=== PATIENT | female | born 1940 | race Caucasian/White ===

== ENCOUNTER → 2018-04-03 09:49 | Outpatient (CLI) | payer MEDICARE, SELFPAY | PROVIDERS: Visit Provider Internal Medicine Gastroenterology | DX: R11.2 Nausea with vomiting, unspecified (principal) | CPT/HCPCS: 78264; A9541 ==

== ENCOUNTER 2020-03-02 17:00 | Inpatient (IN) | payer MEDICARE, SELFPAY ==
[2019-05-22 15:32] VITALS: BMI 34.4
[2020-03-02] VITALS (17 sets, daily range): BP systolic 96–131; BP diastolic 44–73; PULSE 60–87; RESP 13–19; TEMP 36.4–36.8; O2SAT 95–99; BMI 33.7; BMI 35.4
--- NOTE | 2020-03-02 17:03 | EKG12_ITS ---
Test Reason : STROKE Blood Pressure : / mmHG Vent. Rate : 060 BPM Atrial Rate : 070 BPM P-R Int : 000 ms QRS Dur : 138 ms QT Int : 468 ms P-R-T Axes : 000 -78 125 degrees QTc Int : 468 ms Ventricular-paced rhythm Abnormal ECG Confirmed by ROCAEL HERNANDEZ, TEJA ([id number]), clinical editor VANI PATEL ([id number]) on 03/04/2020 1:16:10 PM Referred By: JAVID Confirmed By:TEJA COTE MD
--- NOTE | 2020-03-02 17:03 | CT_ITS ---
We are attempting to reach an attending provider to discuss findings. An addendum with communication details will be sent when the communication is complete. STUDY: CT BRAIN WITHOUT CONTRAST REASON FOR EXAM: Female, 80 years old. FACIAL DROOP, SLURRED SPEECH, CVA RADIATION DOSAGE (If Supplied By Facility): CTDIvol = ( 44.99 ) mGy, DLP = ( 829.85 ) mGycm TECHNIQUE: Transaxial CT imaging of the brain was performed without administration of intravenous contrast material. Individualized dose optimization techniques were used for this CT. COMPARISON: No relevant priors. FINDINGS: Normal soft tissue structures. Normal calvarium. There is mild cerebral atrophy with widening of the extra-axial spaces and ventricular dilatation. There are areas of decreased attenuation within the white matter tracts of the supratentorial brain, consistent with microvascular disease changes. Normal basal ganglia and thalami. Normal brainstem. Normal cerebellum. There is no intracranial hemorrhage. There are no findings of an acute ischemic infarction. Normal visualized paranasal sinuses. CT/Brain/Head without Contrast IMPRESSION: Chronic involutional changes of the brain. There is no intracranial hemorrhage or evidence of acute infarct. Electronically Signed: Romain Heredia MD at 17:21 EDT , Service support ,
--- NOTE | 2020-03-02 17:03 | ED.DCSUM_ITS ---
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 Per EMS she was very confused. Her facial droop has improved since she had the onset of symptoms. No history of falls were noted. Past Medical History - Allergies and Home Meds Allergies/Adverse Reactions: Allergies Iodinated Contrast Media [DYEE] Allergy (Verified 05/22/19 15:32) Anaphylaxis hydrocodone bitartrate [From Vicodin] Adverse Reaction (Verified 05/22/19 15:32) Nausea/Vom/Diarrhea Past Medical History: - - CAD, pacemaker, stroke diabetes Lives: Skilled Nursing Smoking Status: Never smoker Alcohol: None Drugs: None - Family History Maternal Family History: Family History (Last Reviewed 05/22/19 @ 15:31 by Tessy Osorio) Mother Arthritis Family History: Reports: No pertinent history Review of Systems ROS: Unable to Obtain Physical Exam Inital Vital Signs reviewed: Yes General: Obese, Acute Distress Head: Normocephalic, Atraumatic Eyes: Perrl, EOMI, Pale conjunctiva. Negative for: Scleral icterus ENT: Dry mucous membranes Cardiovascular: Regular rate, Regular rhythm Respiratory: No distress, CTA bilaterally, Chest tenderness - Bruising over the lateral chest wall on the left and the right. Equal symmetric breath sounds and chest wall rise Abdomen: Soft, Nontender Rectal: Guaiac positive Extremities: No edema, - - Bruising noted over the bilateral lower extremities. Skin: - - Bruising as described above Neurological: Alert, Disoriented, Left side facial droop. Negative for: Normal Strength Diagnostic/Tx/Re-eval Clinical Impression(s) from Imaging Studies Brain CT 03/02/20 17:03 IMPRESSION: Chronic involutional changes of the brain. There is no intracranial hemorrhage or evidence of acute infarct. Electronically Signed: Romain Heredia MD at 17:21 EDT , Service support , ADDENDUM: 03/02/20 0720 IMPRESSION: Chronic involutional changes of the brain. There is no intracranial hemorrhage or evidence of acute infarct. N.B. : The above information has been verbally conveyed by Edward Walkowski, MD to MATEO HUA DO, on 03/02/2020 17:23:37 (ET). Electronically Signed: Romain Heredia MD at 17:21 EDT , Service support , Chest X-Ray 03/02/20 18:17 IMPRESSION: Degenerative changes, as described above. No demonstrated acute cardiopulmonary process. Electronically Signed: Randy Rosa MD at 18:51 EDT , Service support , Humerus X-Ray 03/02/20 18:48 IMPRESSION: Degenerative changes of the left glenohumeral and acromioclavicular articulations. There is no evidence of left humeral fracture or dislocation. Electronically Signed: Romain Heredia MD at 20:27 EDT , Service support , Elbow X-Ray 03/02/20 19:35 IMPRESSION: No evidence of fracture or dislocation. Electronically Signed: Romain Heredia MD at 20:28 EDT , Service support , Laboratory Data 03/02/20 03/02/20 03/02/20 18:10 20:20 20:20 WBC 11.3 H RBC 2.75 L Hgb 8.4 L Hct 26.5 L MCV 96.4 MCH 30.5 MCHC 31.7 L RDW Std Deviation 56.7 H RDW Coeff of Gunnar 16.6 H Plt Count 289 MPV 10.0 Immature Gran % (Auto) 0.400 Neut % (Auto) 92.6 H Lymph % (Auto) 4.2 L [place] % (Auto) 2.7 Eos % (Auto) 0.0 Baso % (Auto) 0.1 Absolute Neuts (auto) 10.5 H Absolute Lymphs (auto) 0.47 L Nucleated RBC % 0 Differential Comment SEE COMMENT Platelet Estimate ADEQUATE RBC Morphology N CHROM Anisocytosis RARE Macrocytosis RARE PT 18.5 H INR 1.6 APTT 23.9 L Sodium Potassium Chloride Carbon Dioxide Anion Gap BUN Creatinine Estim Creat Clear Calc Est GFR (MDRD) Af Amer Est GFR (MDRD) Non-Af BUN/Creatinine Ratio Glucose Calcium Troponin I Urine Color Yellow Urine Clarity Clear Urine pH 6.0 Ur Specific [place] 1.010 Urine Protein 30 H Urine Glucose (UA) Normal Urine Ketones Negative Urine Occult Blood 50 H Urine Nitrite Negative Urine Bilirubin Negative Urine Urobilinogen Normal Ur Leukocyte Esterase Negative Urine RBC 5-10 SEEN Urine WBC 5-10 SEEN Ur Squamous Epith Cells 0 SEEN Urine Bacteria 2+ Urine Mucus 0 SEEN 03/02/20 03/02/20 20:20 21:45 WBC RBC Hgb Hct MCV MCH MCHC RDW Std Deviation RDW Coeff of Gunnar Plt Count MPV Immature Gran % (Auto) Neut % (Auto) Lymph % (Auto) [place] % (Auto) Eos % (Auto) Baso % (Auto) Absolute Neuts (auto) Absolute Lymphs (auto) Nucleated RBC % Differential Comment Platelet Estimate RBC Morphology Anisocytosis Macrocytosis PT INR APTT Sodium 139 Potassium 4.7 Chloride 95 L Carbon Dioxide 39.0 H Anion Gap 5 BUN 67 H Creatinine 2.47 H Estim Creat Clear Calc 17.57 Est GFR (MDRD) Af Amer 24 L Est GFR (MDRD) Non-Af 20 L BUN/Creatinine Ratio 27.1 H Glucose 133 H Calcium 8.6 Troponin I 0.053 H Urine Color Yellow Urine Clarity Cloudy Urine pH 7.0 Ur Specific [place] 1.010 Urine Protein 30 H Urine Glucose (UA) Normal Urine Ketones Negative Urine Occult Blood 150 H Urine Nitrite Negative Urine Bilirubin Negative Urine Urobilinogen 4 H Ur Leukocyte Esterase 500 H Urine RBC 25-50 SEEN Urine WBC >100 SEEN Ur Squamous Epith Cells 0 SEEN Urine Bacteria 0 SEEN Urine Mucus 0 SEEN - Rhythm Strip Rhythm Strip: - Paced rhythm 58 bpm. - Medical Decision Making Patient presents with concern stroke because she was reportedly having a facial droop which started at 1500 today. On arrival there is a slight left-sided f acial droop. Her symptoms appear to be bilateral. She has bilateral leg weakness and bilateral arm weakness. She is slow to respond. She did have an immediate CT brain which was negative. She was unable to get a CTA because he has a contrast allergy. Neurology felt there might be a slight deficit and recommended admission for MRI/MRA. Patient's blood work shows that she is anemic and she is on Xarelto. She was typed and screened but does not currently need blood transfusion. Hemoccult positive. Patient also has acute kidney injury she was given IV fluids. Her urinalysis was initially negative however after the Hernandez i the urine looked a little more purulent as it started to drain. She was retested and consistent with UTI. She was given Rocephin and a urine culture was sent. Her troponin is slightly elevated however she has no EKG changes and she has acute kidney injury and this is the likely cause. Patient's family member has concerned that she has not been taking care of well as she has bruising all over her extremities and on her abdomen. He does not wish to go back to the longterm. Patient will be admitted to medicine for treatment and she will ultimately be placed somewhere else. ED Disposition - Plan for ED Patient: Disposition: Acute Care Hospital [facility] Diagnosis: Generalized weakness, Facial droop, Anemia, GI bleed, Acute kidney failure, Troponin I above reference range
--- NOTE | 2020-03-02 17:09 | CM.ED ---
Social Work Responding to Stroke Alert. No Family present. [facility] primary contact is patient spouse, Moises. Second contact is patient son, Josh. Estefani states to have attempted to notify patient spouse but no answer and is getting ready to call patient son. Estefani to call Josh to provide updated. This social director inquiring about patient code statues. Patient is a full code. Updated Dr. Welsh and nursing staff on patient code status. Grayson Breen MSW, RUSSELL
--- NOTE | 2020-03-02 17:19 | NURSING ---
1653 CALLED STROKE ALERT
--- NOTE | 2020-03-02 17:35 | CM.ED ---
Social Work Per ED Dowell, Justina. Patient son called in and is getting off work and coming to the hospital. Grayson Breen HIGH SCHOOL MUSIC INSTRUCTOR, RUSSELL
--- NOTE | 2020-03-02 18:17 | RAD_ITS ---
STUDY: X-RAY CHEST REASON FOR EXAM: Female, 80 years old. Chest pain/pressure, mental status change, facial droop TECHNIQUE: Single AP portable view of the chest. COMPARISON: None. FINDINGS: EKG leads overlie the chest. Satisfactory appearance of a left subclavian pacemaker There are interstitial fibrotic changes of the lungs. There is no demonstrated pleural abnormality. Sternal cerclage wires and vascular clips are present from a prior sternotomy and coronary artery bypass graft procedure (CABG). Normal mediastinum and renay. Normal visualized pulmonary arteries. There is atherosclerotic calcification of the aortic arch with tortuosity. There are diffuse degenerative changes of the visualized thoracic spine. There is degenerative osteoarthritis of the bilateral shoulders. There is no demonstrated abnormality of the visualized soft tissue structures of the upper abdomen. RAD/Chest 1 View IMPRESSION: Degenerative changes, as described above. No demonstrated acute cardiopulmonary process. Electronically Signed: Randy Rosa MD at 18:51 EDT , Service support ,
--- NOTE | 2020-03-02 18:48 | RAD_ITS ---
STUDY: X-RAY - LEFT HUMERUS REASON FOR EXAM: Female, 80 years old. Stroke alert. Left arm pain and bruising. TECHNIQUE: 2 view(s) of the humerus. COMPARISON: None. FINDINGS: There are degenerative changes of the left glenohumeral and acromioclavicular articulations. There is no demonstrated fracture or osseous destructive process. There is no demonstrated soft tissue abnormality. RAD/Humerus min 2 Views IMPRESSION: Degenerative changes of the left glenohumeral and acromioclavicular articulations. There is no evidence of left humeral fracture or dislocation. Electronically Signed: Romain Heredia MD at 20:27 EDT , Service support ,
--- NOTE | 2020-03-02 19:35 | RAD_ITS ---
STUDY: X-RAY - LEFT ELBOW REASON FOR EXAM: Female, 80 years old. Stroke alert. Left elbow pain and bruising. TECHNIQUE: 3 view(s) of the elbow. COMPARISON: None. FINDINGS: Normal visualized humerus, radius and ulna. Normal radiocapitellar and ulnotrochlear articulations. Arterial calcifications are seen in the forearm. There is a tiny olecranon process enthesophyte in the region of the triceps tendon insertion. RAD/Elbow min 3 Views IMPRESSION: No evidence of fracture or dislocation. Electronically Signed: Romain Heredia MD at 20:28 EDT , Service support ,
--- NOTE | 2020-03-02 20:01 | CM.ED ---
Social Work Patient spouse, Moises present. This social service agency director able to speak with both patient and patient spouse. Patient was independent at home prior to four weeks ago when patient has a fall in the home. Patient has since been in and out of the hospital and back at [facility] in [place]. Moises states to workout side of the home and to be unable to care for patient in the home. Moises tearful throughout conversation and states to be overwhelmed with patient not being at home and being in the prison. Moises concerned about patient care in the prison and does not want patient to return to [facility]. Patient also states concern for care in the prison and does not want to return. Patient is aware that patient does require assist and is not able to return to home as Moises works during the day. Patient's son, Yevgeniy also lives in the home and works outside of the home as well. This social service agency director inquiring about Health Care power of Leadership Development Instructor for patient, patient does not have a health care POA but is interested in completing paperwork. Patient wanting to complete paperwork sooner rather then later. Patient open to complete HCPOA documents during this social work encounter. HCPOA documents completed. Patient nominated patient son, Yevgeniy as HCPOA. This social service agency director met Yevgeniy outside ED to provide originals of HCPOA and copy placed on patient chart. Yevgeniy also voicing concern of patient returning to [facility] and is interested in other facilities for patient if patient is admitted to hospital. Collaborating with Dr. Welsh. Dr. Welsh plans for patient to be admitted. Grayson VELASCO, RUSSELL
[2020-03-02 20:28] LABS: Mucous, Urine 0 SEEN /hpf (<or=2+)
[2020-03-02 20:28] LABS: Absolute Lymphocyte Count 0.47 X10^3/uL (0.83-4.51); Absolute Neutrophil Count 10.5 X10^3/uL (2.0-7.7); Basophil# 0.01 X10^3/uL; Basophil% 0.1 % (0-1); Hematocrit 26.5 % (37-47); Hemoglobin 8.4 g/dL (12.0-15.0); Lymphocyte # 0.47 X10^3/ul (4.0); Lymphocyte % 4.2 % (19-41); Mean Corp Hgb Conc 31.7 g/dL (32-36); Mean Corpuscular Hgb 30.5 pg (27.0-32.0); Mean Corpuscular Volume 96.4 fL (81-99); Monocyte% 2.7 % (0-10); NRBC Flagged by Analyzer 0 % (0-5); Neutrophil # 10.46 X10^3/uL (2.7-7.7); Neutrophil % 92.6 % (47-70); POSITIVE DIFFERENTIAL YES; Platelet Count 289 K/mm3 (150-450); RBC Distribution Width CV 16.6 % (11.6-14.6); RBC Distribution Width SD 56.7 fl (35.1-43.9); Red Blood Count 2.75 M/mm3 (4.2-5.4); White Blood Count 11.3 K/mm3 (4.4-11.0)
[2020-03-02 20:41] LABS: International Normalized Ratio 1.6; Partial Thromboplast Time 23.9 Seconds (24.1-36.2); Prothrombin Time (Protime)PT. 18.5 SECONDS (11.7-14.9)
[2020-03-02 20:47] LABS: Color, Urine Yellow (Yellow); Glucose, Dipstick Normal (Normal); Ketone-Dipstick Negative (Negative); Leukocyte Esterase-Dipstick Negative /ul (Negative); Nitrite-Dipstick Negative (Negative); Occult Blood-Urine 50 /ul (Negative); Protein-Dipstick 30 mg/dl (Negative); Urine Bilirubin Dipstick Negative (Negative); Urine Clarity Clear (Clear); Urine Urobilinogen Normal (Normal)
[2020-03-02 20:58] LABS: Bacteria 2+ /hpf (None Seen); Red Blood Cells-Urine 5-10 SEEN /hpf (0-5); Squamous Epithelial Cells - UA 0 SEEN /hpf (5-10); White Blood Cells 5-10 SEEN /hpf (0-5)
[2020-03-02 21:25] LABS: Anion Gap 5 (5-15); BUN 67 mg/dL (7-18); BUN/Creat Ratio 27.1 RATIO (10-20); Calcium,Total 8.6 mg/dL (8.5-10.1); Chloride 95 mmol/L (98-107); Creatinine, Serum 2.47 mg/dL (0.55-1.02); Differential Indicated SCAN CRITERIA MET; EST Glomerular Filtration Rate 20 mL/min (>60); Est Glom Filt Rate - Afr Amer 24 mL/min (>60); Estimated Creatinine Clearance 17.57 ml/min; Glucose 133 mg/dL (74-106); Potassium 4.7 mmol/L (3.5-5.1); Sodium Level 139 mmol/L (136-145)
[2020-03-02 21:26] LABS: Anisocytosis RARE; Macrocytosis RARE; Platelet Estimate ADEQUATE (ADEQ); Red Cell Morphology N CHROM NORMAL (NORM C&C)
[2020-03-02 21:54] LABS: Bacteria 0 SEEN /hpf (None Seen); Mucous, Urine 0 SEEN /hpf (<or=2+); Squamous Epithelial Cells - UA 0 SEEN /hpf (5-10)
[2020-03-02 21:56] LABS: Color, Urine Yellow (Yellow); Glucose, Dipstick Normal (Normal); Ketone-Dipstick Negative (Negative); Leukocyte Esterase-Dipstick 500 /ul (Negative); Nitrite-Dipstick Negative (Negative); Occult Blood-Urine 150 /ul (Negative); Protein-Dipstick 30 mg/dl (Negative); Urine Bilirubin Dipstick Negative (Negative); Urine Clarity Cloudy (Clear); Urine Urobilinogen 4 mg/dl (Normal)
[2020-03-02 22:02] LABS: Red Blood Cells-Urine 25-50 SEEN /hpf (0-5); White Blood Cells >100 SEEN /hpf (0-5)
--- NOTE | 2020-03-02 22:23 | PCM.HP.STD ---
Problem List (1) Facial droop Status: Acute (2) Generalized weakness Status: Acute (3) Multiple contusions Status: Acute (4) History of stroke Status: Chronic (5) Diabetes Status: Chronic (6) History of pacemaker Status: Chronic (7) History of cardiac defibrillator placement Status: Chronic History of Present Illness Date of Admission: 03/02/20 Chief Complaint: generalized weakness The patient is a 80 year old male patient with a significant past medical history of stroke, coronary artery disease status post planted defibrillator/pacemaker, who presents to the emergency room with chief complaint of generalized weakness. Per her son, DURABLE POWER OF PARKING ENFORCEMENT MANAGER for healthcare reports her has having a left-sided facial droop with weakness on both arms and legs. She also presents with multiple contusions specifically around her left elbow. Laboratory studies reveal a white blood cell count of 11.3 with a left shift of neutrophils at 92%, hemoglobin 8.4, hematocrit 26.5, platelets 289, sodium 139, potassium 4.7, chloride 95, bicarb 35, BUN 67, creatinine 2.47, glucose 133, INR 1.6, troponin 0 0.053, urinalysis positive, x-ray negative for fracture of left elbow or left humerus, CT head negative for acute hemorrhage. A neurology consult was done in the emergency room and felt unnecessary to give TPA at that time. Due to unknown onset of symptoms. Initial urinalysis was essentially normal however after the cath was in the noticed a lot of pus was draining from the Hernandez and urinalysis was reperformed and found to be positive. Consider urinary tract infection as likely cause for her weakness. Will admit to progressive care unit due to needing neurologic checks along with repeat troponins. Patient will be treated with IV antibiotics and fluids and reevaluated in the morning to consider whether or not MRI is necessary. Past Medical History Past Medical History (Chronic Problems): Chronic Problems (Last Reviewed 05/22/19 @ 15:31 by Tessy Osorio) History of right breast cancer (Chronic) History of stroke (Chronic) Diabetes (Chronic) History of pacemaker (Chronic) History of cardiac defibrillator placement (Chronic) Medical History: Medical History (Last Reviewed 05/22/19 @ 15:31 by Tessy Osorio) Cardiac defibrillator in place Z95.810 Diabetes mellitus E11.9 Heart disease I51.9 Left arm surgery Pacemaker Z95.0 2018 Stroke I63.9 2018 heart cath 2018 Allergies Iodinated Contrast Media [DYEE] Allergy (Verified 05/22/19 15:32) Anaphylaxis hydrocodone bitartrate [From Vicodin] Adverse Reaction (Verified 05/22/19 15:32) Nausea/Vom/Diarrhea Home Medications: Ambulatory Orders Medication Instructions Recorded hydroCHLOROthiazide 12.5 mg PO DAILY 11/17/16 [Hydrochlorothiazide] Acetaminophen [Tylenol] 650 mg PO Q4H PRN PRN 03/02/20 Anastrozole [Arimidex] 1 mg PO DAILY 03/02/20 Aspirin E.C. [Ecotrin] 81 mg PO DAILY@0800 03/02/20 Atorvastatin Calcium [Lipitor] 80 mg PO QHS 03/02/20 Calcium Carbonate 600 mg PO DAILY 03/02/20 Cholecalciferol (VIT D3) [Vitamin 1,000 unit PO DAILY 03/02/20 D] Clopidogrel Bisulfate [Clopidogrel] 75 mg PO DAILY 03/02/20 Furosemide [Lasix] 40 mg PO BID 03/02/20 Insulin Aspart [Novolog Flexpen 20 units SUBCUT X1 03/02/20 ([facility])] Insulin Aspart [Novolog Flexpen 24 units SUBCUT X1 03/02/20 ([facility])] Insulin Detemir [Levemir Flextouch] 35 unit SQ DAILY 03/02/20 Insulin Lispro [Humalog KwikPen] 5 unit SQ TID 03/02/20 Insulin Lispro [Humalog Kwikpen See Protocol SQ ACHS 03/02/20 U-100] Isosorbide Mononitrate [Isosorbide 30 mg PO DAILY 03/02/20 Mononitrate ER] Losartan Potassium [Cozaar] 25 mg PO DAILY 03/02/20 Magnesium Hydroxide [Milk of 30 ml PO DAILY PRN PRN 03/02/20 Magnesia] Melatonin 6 mg PO QHS 03/02/20 Metoprolol Succinate [Toprol Xl] 50 mg PO DAILY 03/02/20 Ondansetron HCl [Zofran] 4 mg PO Q6H PRN PRN 03/02/20 Polyethylene Glycol 3350 17 gm PO BID 03/02/20 Prednisone 20 mg PO DAILY 03/02/20 Promethazine HCl 25 mg PO DAILY PRN PRN 03/02/20 Rivaroxaban [Xarelto] 15 mg PO BID 03/02/20 Rivaroxaban [Xarelto] 20 mg PO DAILY 03/02/20 Sodium Phosphate,[place]-Dibasic 1 bottle SD DAILY PRN PRN 03/02/20 [Fleet Enema] Tramadol HCl [Ultram] 50 mg PO Q6H PRN PRN 03/02/20 Surgical History: Surgical History (Last Reviewed 05/22/19 @ 15:31 by Tessy Osorio) History of appendectomy Z98.890, Z90.49 History of cataract extraction Z98.49 History of cholecystectomy Z98.890, Z90.49 History of hernia repair Z98.890, Z87.19 History of open heart surgery Z98.890 History of tonsillectomy Z98.890, Z90.89 Lives: Longterm Smoking Status: Never smoker Alcohol: None Drugs: None - *Family History Maternal Family History: Family History (Last Reviewed 05/22/19 @ 15:31 by Tessy Osorio) Mother Arthritis History Items: No pertinent history Review of Systems Constitutional: Reports: Malaise, Weakness, Fatigue. Denies: Chills, Fever, Weight Change HEENT: Denies: Head Aches, Sinus Congestion, Sinus Drainage Cardiovascular: Denies: Chest Pain, Palpitations Respiratory: Denies: Cough, Shortness of breath at rest, Sputum production Gastrointestinal: Denies: Abdominal Pain, Nausea, Vomiting Genitourinary: Denies: Dysuria Musculoskeletal: Denies: Joint Pain, Joint Tenderness Skin: Denies: Rash, Wounds Neurological: Reports: Focal weakness - left facial droop now resolved. Denies: Numbness, Tingling Psychiatric: Denies: Anxiety, Depression, Homicidal Ideations, Suicidal Ideations Hematologic/ Lymphatic: Denies: Easy Bruising, Easy Bleeding VTE Information - Inpt Only VTE Present on Admission: No VTE Mechan Device Prophylaxis: SCD's VTE Pharm Prophylaxis ordered?: No Patient Problems: Active and Suspected Problems (Last Reviewed 05/22/19 @ 15:31 by Tessy Osorio) Facial droop (Acute) Generalized weakness (Acute) Multiple contusions (Acute) - Physical Exam Vitals/I&O's: Vital Signs Temp Pulse Resp BP Pulse Ox 98.3 F 87 18 113/48 L 95 03/02/20 17:32 03/02/20 22:00 03/02/20 22:00 03/02/20 22:00 03/02/20 22:00 Oxygen Delivery Method Room Air Weight: 208 lb 12.444 oz Body Mass Index (BMI) 33.7 Finger Stick Blood Glucose 230 General: Alert, Oriented x3, Cooperative HEENT: Atraumatic, PERRLA, EOMI, Normocephalic Neck: Supple Lungs: Clear to auscultation, Normal air movement Cardiovascular: Regular rate, Normal S1, Normal S2, No murmurs Abdomen: Bowel Sounds Present, Soft, Non Tender Extremities: No edema, Edema - trace lower ext, - - multiple contusions on left upper extremity Skin: No rashes Musculoskeletal: Tenderness - left elbow Neurological: Neuro grossly intact Psych/Mental Status: Normal Affect, Appropriate Laboratory Results 03/02/20 18:10: Urine Color Yellow, Urine Clarity Clear, Urine pH 6.0, Ur Specific [place] 1.010, Urine Protein 30 H, Urine Glucose (UA) Normal, Urine Ketones Negative, Urine Occult Blood 50 H, Urine Nitrite Negative, Urine Bilirubin Negative, Urine Urobilinogen Normal, Ur Leukocyte Esterase Negative, Urine RBC 5-10 SEEN, Urine WBC 5-10 SEEN, Ur Squamous Epith Cells 0 SEEN, Urine Bacteria 2+, Urine Mucus 0 SEEN 03/02/20 20:20: WBC 11.3 H, RBC 2.75 L, Hgb 8.4 L, Hct 26.5 L, MCV 96.4, MCH 30.5, MCHC 31.7 L, RDW Std Deviation 56.7 H, RDW Coeff of Gunnar 16.6 H, Plt Count 289, MPV 10.0, Immature Gran % (Auto) 0.400, Neut % (Auto) 92.6 H, Lymph % (Auto) 4.2 L, [place] % (Auto) 2.7, Eos % (Auto) 0.0, Baso % (Auto) 0.1, Absolute Neuts (auto) 10.5 H, Absolute Lymphs (auto) 0.47 L, Nucleated RBC % 0, Differential Comment SEE COMMENT, Platelet Estimate ADEQUATE, RBC Morphology N CHROM, Anisocytosis RARE, Macrocytosis RARE 03/02/20 20:20: PT 18.5 H, INR 1.6, APTT 23.9 L 03/02/20 20:20: Sodium 139, Potassium 4.7, Chloride 95 L, Carbon Dioxide 39.0 H, Anion Gap 5, BUN 67 H, Creatinine 2.47 H, Estim Creat Clear Calc 17.57, Est GFR (MDRD) Af Amer 24 L, Est GFR (MDRD) Non-Af 20 L, BUN/Creatinine Ratio 27.1 H, Glucose 133 H, Calcium 8.6, Troponin I 0.053 H 03/02/20 21:45: Urine Color Yellow, Urine Clarity Cloudy, Urine pH 7.0, Ur Specific [place] 1.010, Urine Protein 30 H, Urine Glucose (UA) Normal, Urine Ketones Negative, Urine Occult Blood 150 H, Urine Nitrite Negative, Urine Bilirubin Negative, Urine Urobilinogen 4 H, Ur Leukocyte Esterase 500 H, Urine RBC 25-50 SEEN, Urine WBC >100 SEEN, Ur Squamous Epith Cells 0 SEEN, Urine Bacteria 0 SEEN, Urine Mucus 0 SEEN Current Medications Ceftriaxone Sodium (Rocephin) 1 gm in 50 mls @ 100 mls/hr IV X1 ONE Stop: 03/02/20 22:47 Assessment/Plan All Active Problems (Last Reviewed 05/22/19 @ 15:31 by Tessy Osorio) Osteopenia (Acute) Breast cancer, right (Resolved) Facial droop (Acute) Generalized weakness (Acute) Multiple contusions (Acute) Chronic Problems (Last Reviewed 05/22/19 @ 15:31 by Tessy Osorio) History of right breast cancer (Chronic) History of stroke (Chronic) Diabetes (Chronic) History of pacemaker (Chronic) History of cardiac defibrillator placement (Chronic) Plan 1. Urinary tract infection/generalized weakness?admit patient to progressive care unit, IV Rocephin 1 g every 24 hours. Repeat CBC BMP in the morning. Start IV fluids normal saline at 75 cc/h 2. History of stroke and reported facial droop [facility] [place] [facility]?we will do neurologic evaluations throughout the evening. At this time I feel her weakness is due to urinary tract more so than acute stroke. There was no facial droop during my evaluation. 3. Diabetes?continue home medications 4. DVT prophylaxis?SCDs 5. Multiple contusions?unknown as to why they are there, x-rays are negative for fracture?consult case management for placement as the power of school director of healthcare has inferred that he would like her placed at another [place] [facility] I mentioned to her that [facility] might be a good fit for her. Inpatient E&M: [id number] Init Hosp L3
[2020-03-02] MEDS: 0.9% Normal Saline 1,000 ML 999 ML IV (22:30)
[2020-03-02] MEDS: Ceftriaxone 1 GM/50 ML BAG IV (22:50)
--- NOTE | 2020-03-02 23:17 | ED.RN ---
Dr Hurst notified of positive occult blood stool result. verbal orders received from Dr Hurst to hold aspirin, plavix, and xarelto.
[2020-03-03] VITALS (13 sets, daily range): BP systolic 100–135; BP diastolic 37–71; PULSE 57–90; RESP 18; TEMP 36.4–37; O2SAT 94–100; BMI 35.4
[2020-03-03] MEDS: 0.9% Normal Saline 1,000 ML 75 ML IV ×2 (00:30→13:35)
[2020-03-03] MEDS: 0.9% Saline Lock 10 ML Syringe IV (05:47)
[2020-03-03 05:53] LABS: Absolute Lymphocyte Count 1.52 X10^3/uL (0.83-4.51); Absolute Neutrophil Count 9.6 X10^3/uL (2.0-7.7); Basophil# 0.02 X10^3/uL; Basophil% 0.2 % (0-1); Eosinophil# 0.05 X10^3/uL; Eosinophils% 0.4 % (0-5); Hematocrit 24.4 % (37-47); Hemoglobin 7.7 g/dL (12.0-15.0); Lymphocyte # 1.52 X10^3/ul (4.0); Lymphocyte % 12.6 % (19-41); Mean Corp Hgb Conc 31.6 g/dL (32-36); Mean Corpuscular Hgb 30.6 pg (27.0-32.0); Mean Corpuscular Volume 96.8 fL (81-99); Mean Platelet Vol. 10.1 fl (6.2-12.0); Monocyte# 0.77 X10^3/uL; Monocyte% 6.4 % (0-10); NRBC Flagged by Analyzer 0 % (0-5); Neutrophil # 9.62 X10^3/uL (2.7-7.7); Platelet Count 265 K/mm3 (150-450); RBC Distribution Width CV 16.5 % (11.6-14.6); RBC Distribution Width SD 57.1 fl (35.1-43.9); Red Blood Count 2.52 M/mm3 (4.2-5.4)
[2020-03-03 06:18] LABS: Anion Gap 4 (5-15); BUN 63 mg/dL (7-18); BUN/Creat Ratio 28.3 RATIO (10-20); Calcium,Total 8.1 mg/dL (8.5-10.1); Chloride 99 mmol/L (98-107); Cholesterol 119 mg/dL (200); Creatinine, Serum 2.23 mg/dL (0.55-1.02); EST Glomerular Filtration Rate 23 mL/min (>60); Est Glom Filt Rate - Afr Amer 27 mL/min (>60); Estimated Creatinine Clearance 18.71 ml/min; Glucose 111 mg/dL (74-106); High Density Lipoprotein 52 mg/dL; Potassium 4.2 mmol/L (3.5-5.1); Sodium Level 139 mmol/L (136-145); Triglycerides 112 mg/dL; Very Low Density Lipoprotein 22 mg/dL (5-40)
[2020-03-03 06:40] LABS: Bedside Glucose 107 mg/dL (70-110)
--- NOTE | 2020-03-03 09:33 | CASEMGMT ---
SW spoke with patient regarding choosing another facility. Patient said she is going to defer to her son regarding changing facilities. SW asked patient if it was okay for SW to contact [facility] and let them know she is not going to return. She said that is fine. ALEX called patient's son, Yevgeniy who is also patient's Healthcare POA. He confirmed their choices for SNF are [facility], [place], and [facility]. He shared with SW that his mom was very unhappy at [facility]. She told him they yell at her, let her sit on the bed mireles for an extended period of time, and let her lie in bed without checking on her. He also mentioned she has numerous bruises. He is aware she is on blood thinners. SW asked if he has heard of the Ombudsman at [facility]. He has not so SW explained to him that they investigate concerns at nursing homes. He was fine with SW giving the ombudsman his name and number. ALEX asked if there will be any problem with patient paying her daily co-pay when she gets to that point. He said it depends on the amount of the co-pay. SW asked him if it is okay if ALEX notifies [facility] that patient will not be returning and he said that is fine. ALEX told him SW will work on referrals, notify [facility], and Ombudsman. He thanked ALEX for checking in with him. ALEX called [facility] and left her a voice mail with referral. ALEX called [facility] and spoke with MIGUEL ÁNGEL Rosario letting her know patient will not be returning there at d/c. ALEX also called [facility] Kingsley and gave her patient's son's name and number. Marybel WELLS MSW
[2020-03-03] MEDS: Aspirin E.C. 81 MG Tablet PO (09:54)
[2020-03-03] MEDS: predniSONE 20 MG Tablet PO (09:55)
[2020-03-03] MEDS: Anastrozole 1 MG Tablet PO (09:56)
[2020-03-03] MEDS: Losartan Potassium 25 MG Tablet PO (09:56)
[2020-03-03] MEDS: Isosorbide Mononitrate 30 MG Tablet PO (09:56)
[2020-03-03] MEDS: Clopidogrel Bisulfate 75 MG Tablet PO (09:57)
[2020-03-03] MEDS: Metoprolol(XL)Succ 50 MG Tablet PO (09:57)
[2020-03-03] MEDS: Polyethylene Glycol 3350 17 GM PACKET PO ×2 (09:58→22:05)
[2020-03-03] MEDS: Calcium Carbonate 500 MG Tablet PO (09:58)
--- NOTE | 2020-03-03 10:20 | CASEMGMT ---
ALEX called [employer] and obtained patient's SNF benefits. Days 1-20 are covered at 100%, days 21-45 there is a $120 per day co-pay, and days 46-100 patient is covered at 100%. ALEX thanked her for the information and will check with patient's son. ALEX did talk with Sunitha in TCU and she would have a bed for patient. Marybel WELLS MSW
--- NOTE | 2020-03-03 10:32 | CASEMGMT ---
SW completed a PHQ 9 with patient as she may have had a Stroke or TIA. She scored a 7 which indicates minimal depression. Patient declined resources at this time as she will be transitioning back to a SNF at d/c. SW will pass along patient's score to the SW in TCU which is where patient may go at d/c. Marybel VELASCO
--- NOTE | 2020-03-03 11:24 | NURSING ---
wound photo: left arm
--- NOTE | 2020-03-03 11:25 | NURSING ---
wound photo: left achilles
[2020-03-03] MEDS: Insulin Lispro 100 UNIT/ML INSULN.PEN SC ×3 (11:38→22:06)
[2020-03-03 11:50] LABS: Bedside Glucose 241 mg/dL (70-110)
--- NOTE | 2020-03-03 12:56 | CASEMGMT ---
SW called patient's son, Josh and went over insurance coverage for SNF and co-pay days and cost. He said that this should be do able. He said it would be helpful if they could do a payment plan. ALEX let him know TCU can take her when she is ready. Plan: [facility] pending insurance approval and patient being medically ready. Marybel WELLS MSW
--- NOTE | 2020-03-03 13:00 | VDLE_ITS ---
Reason For Study: Swelling RIGHT LEFT GSV is normal. CFV is compressible, spontaneous, phasic, CFV is compressible, spontaneous, phasic, competent, and demonstrates normal competent and demonstrates normal augmentation. augmentation. FV is compressible, spontaneous, phasic, FV is compressible, spontaneous, phasic, competent and demonstrates normal competent and demonstrates normal augmentation. augmentation. POP V is compressible, spontaneous, phasic, POP V is compressible, spontaneous, phasic, competent and demonstrates normal competent and demonstrates normal augmentation. augmentation. T/P Trunk is compressible. T/P Trunk is compressible. PTV is compressible. PTV is compressible. LT PerV is compressible. RT PerV is compressible. GSV previously harvested. Nonvascularized structure noted in the right Nonvascularized structure noted in the left popliteal space measuring approximently 0.87 popliteal space measuring approximently 0.46 x 2.41 x 4.62 cm. x 1.35 x 3.83 cm. Procedure Exam performed portable in patient room. A preliminary report was called and/or faxed to [facility]. Interpretation Summary No evidence for acute deep venous thrombosis bilateral lower extremities. Patent and compressible right great saphenous vein Surgically harvested left great saphenous vein 0.87 x 2.41 x 4.62 cm right popliteal nonvascular structure consistent with a Breen's cyst. 0.46 x 1.35 x 3.8 cm left popliteal space nonvascular structure consistent with a Breen's cyst. Clinical correlation would be appropriate. Ordering Physician: Alex Alfaro Referring Physician: Ab Escobar Performed By: Afshan Bourne RVT
--- NOTE | 2020-03-03 14:44 | PN_ITS ---
Patient Problems: Active and Suspected Problems (Last Reviewed 05/22/19 @ 15:31 by Tessy Osorio) Facial droop (Acute) Generalized weakness (Acute) Multiple contusions (Acute) Anemia (Acute) GI bleed (Acute) Acute kidney failure (Acute) Troponin I above reference range (Acute) Reason for Visit: weakness Subjective: Pt denies fever/chills. Pt unsure if her weakness is new or from old stroke. She does not remember what deficits she had from old stroke. No CP/SOB. No Nausea/Vomiting or diarrhea. Hernandez in place, no discomfort. Vitals/I&O's: Vital Signs Temp Pulse Resp BP Pulse Ox 98.6 F 72 18 118/40 L 97 03/03/20 11:30 03/03/20 11:30 03/03/20 11:30 03/03/20 11:30 03/03/20 11:30 Oxygen Flow Rate (L/min) 2 Oxygen Delivery Method Room Air Weight: 212 lb 9.609 oz Body Mass Index (BMI) 35.4 Finger Stick Blood Glucose 230 Intake and Output for Last 24 Hours 03/01/20 03/02/20 03/03/20 23:59 23:59 23:59 Intake Total 2621.25 / 2621.25 Output Total 550 / 550 Balance 2071.25 / 2071.25 General: Alert, Oriented x3, Cooperative HEENT: Atraumatic, PERRLA, EOMI, Normocephalic Neck: Supple, No JVD, Negative Carotid Bruits Lungs: Clear to auscultation, Normal air movement Cardiovascular: Regular rate, No murmurs Abdomen: Bowel Sounds Present, Soft, Non Tender, Obese Extremities: No edema, Capillary Refill Less than 3 Seconds Skin: No rashes, No breakdown, - - pallor Musculoskeletal: No Tenderness to Palpation of Joints or Extremities Neurological: - - slight left facial droop, failed point to point left upper extremity. Left arm weaker than right. BL legs weak. Psych/Mental Status: Normal Affect, Appropriate Microbiology Past 72 Hours 03/02/20 18:10 Urine Catheter - Catheter Urine Culture - Preliminary Gram negative yaz 03/02/20 21:45 Stool Stool Occult Blood (GLENN) - Final Occult Blood Positive Laboratory Results 03/02/20 18:10: Urine Color Yellow, Urine Clarity Clear, Urine pH 6.0, Ur Specific [place] 1.010, Urine Protein 30 H, Urine Glucose (UA) Normal, Urine Ketones Negative, Urine Occult Blood 50 H, Urine Nitrite Negative, Urine Bilirubin Negative, Urine Urobilinogen Normal, Ur Leukocyte Esterase Negative, Urine RBC 5-10 SEEN, Urine WBC 5-10 SEEN, Ur Squamous Epith Cells 0 SEEN, Urine Bacteria 2+, Urine Mucus 0 SEEN 03/02/20 20:20: WBC 11.3 H, RBC 2.75 L, Hgb 8.4 L, Hct 26.5 L, MCV 96.4, MCH 30.5, MCHC 31.7 L, RDW Std Deviation 56.7 H, RDW Coeff of Gunnar 16.6 H, Plt Count 289, MPV 10.0, Immature Gran % (Auto) 0.400, Neut % (Auto) 92.6 H, Lymph % (Auto) 4.2 L, Knott % (Auto) 2.7, Eos % (Auto) 0.0, Baso % (Auto) 0.1, Absolute Neuts (auto) 10.5 H, Absolute Lymphs (auto) 0.47 L, Nucleated RBC % 0, Differential Comment SEE COMMENT, Platelet Estimate ADEQUATE, RBC Morphology N CHROM, Anisocytosis RARE, Macrocytosis RARE 03/02/20 20:20: PT 18.5 H, INR 1.6, APTT 23.9 L 03/02/20 20:20: Sodium 139, Potassium 4.7, Chloride 95 L, Carbon Dioxide 39.0 H, Anion Gap 5, BUN 67 H, Creatinine 2.47 H, Estim Creat Clear Calc 17.57, Est GFR (MDRD) Af Amer 24 L, Est GFR (MDRD) Non-Af 20 L, BUN/Creatinine Ratio 27.1 H, Glucose 133 H, Calcium 8.6, Troponin I 0.053 H 03/02/20 21:45: Urine Color Yellow, Urine Clarity Cloudy, Urine pH 7.0, Ur Specific [place] 1.010, Urine Protein 30 H, Urine Glucose (UA) Normal, Urine Ketones Negative, Urine Occult Blood 150 H, Urine Nitrite Negative, Urine Bilirubin Negative, Urine Urobilinogen 4 H, Ur Leukocyte Esterase 500 H, Urine RBC 25-50 SEEN, Urine WBC >100 SEEN, Ur Squamous Epith Cells 0 SEEN, Urine Bacteria 0 SEEN, Urine Mucus 0 SEEN 03/02/20 22:50: Blood Type A POSITIVE, Antibody Screen NEGATIVE 03/03/20 01:05: Troponin I 0.056 H 03/03/20 05:45: WBC 12.0 H, RBC 2.52 L, Hgb 7.7 L, Hct 24.4 L, MCV 96.8, MCH 30.6, MCHC 31.6 L, RDW Std Deviation 57.1 H, RDW Coeff of Gunnar 16.5 H, Plt Count 265, MPV 10.1, Immature Gran % (Auto) 0.400, Neut % (Auto) 80.0 H, Lymph % (Auto) 12.6 L, Knott % (Auto) 6.4, Eos % (Auto) 0.4, Baso % (Auto) 0.2, Absolute Neuts (auto) 9.6 H, Absolute Lymphs (auto) 1.52, Nucleated RBC % 0 03/03/20 05:45: Sodium 139, Potassium 4.2, Chloride 99, Carbon Dioxide 36.0 H, Anion Gap 4 L, BUN 63 H, Creatinine 2.23 H, Estim Creat Clear Calc 18.71, Est GFR (MDRD) Af Amer 27 L, Est GFR (MDRD) Non-Af 23 L, BUN/Creatinine Ratio 28.3 H , Glucose 111 H, Calcium 8.1 L, Troponin I 0.063 H, Triglycerides 112, Cholesterol 119, LDL Cholesterol 45, VLDL Cholesterol 22, HDL Cholesterol 52 03/03/20 06:37: POC Glucose 107 03/03/20 11:35: POC Glucose 241 H 03/03/20 13:32: COVID-19 ([facility]INCENZO) Pending Current Medications Acetaminophen (Tylenol) 650 mg PO Q4H PRN PRN PRN Reason: Pain Score 1-10/10 Anastrozole (Arimidex) 1 mg PO DAILY [facility] Last Admin: 03/03/20 09:56 Dose: 1 mg Documented by: Atorvastatin Calcium (Lipitor) 80 mg PO QHS [facility] Calcium Carbonate (Tums) 500 mg PO DAILY [facility] Last Admin: 03/03/20 09:58 Dose: 500 mg Documented by: Cholecalciferol (Vitamin D (25mcg)) 1,000 unit PO DAILY [facility] Last Admin: 03/03/20 09:58 Dose: 1,000 unit Documented by: Dextrose (D50w Syringe) 0 gm IV X1 PRN; Protocol PRN Reason: Hypoglycemia Glucagon () 1 mg IM .X1 PRN PRN Reason: Hypoglycemia Sodium Chloride () 1,000 mls @ 75 mls/hr IV .[id number] [facility] Last Admin: 03/03/20 13:35 Dose: 75 mls/hr Documented by: Ceftriaxone Sodium (Rocephin) 1 gm in 50 mls @ 100 mls/hr IV Q24@2200 DANIELLE Sodium Chloride () 250 mls @ 15 mls/hr IV .[id number] PRN PRN Reason: Saline Flush Sodium Chloride () 250 mls @ 15 mls/hr IV .[id number] PRN PRN Reason: Additional IVPB Infusion Pantoprazole Sodium 40 mg/ (Sodium Chloride) 110 mls @ 330 mls/hr IV Q12 [facility] Last Infusion: 03/03/20 10:54 Dose: Infused Documented by: Insulin Glargine (Lantus ([facility])) 35 units SC DAILY [facility] Last Admin: 03/03/20 09:58 Dose: 35 units Documented by: Insulin Human Lispro (Humalog Kwikpen ([facility])) 0 unit SC ACHS [facility]; Protocol Last Admin: 03/03/20 11:38 Dose: 3 units Documented by: Isosorbide Mononitrate (Imdur) 30 mg PO DAILY [facility] Last Admin: 03/03/20 09:56 Dose: 30 mg Documented by: Losartan Potassium (Cozaar) 25 mg PO DAILY [facility] Last Admin: 03/03/20 09:56 Dose: 25 mg Documented by: Melatonin (Melatonin) 6 mg PO QHS [facility] Metoprolol Succinate (Toprol Xl (Beta Corin)) 50 mg PO DAILY [facility] Last Admin: 03/03/20 09:57 Dose: 50 mg Documented by: Ondansetron HCl (Zofran Odt) 4 mg PO Q6H PRN PRN PRN Reason: NAUSEA/VOMITING Polyethylene Glycol (Miralax) 17 gm PO BID [facility] Last Admin: 03/03/20 09:58 Dose: 17 gm Documented by: [facility] () [facility] Last Admin: 03/03/20 09:55 Dose: 20 mg Documented by: Sodium Chloride () 10 - 40 ml IV UD PRN PRN Reason: SALINE FLUSH Last Admin: 03/03/20 05:47 Dose: 20 ml Documented by: STROKE Vital Signs/Narrative: Vital Signs Temp Pulse Resp BP Pulse Ox 03/03/20 11:30 98.6 F 72 18 118/40 L 97 Medical Necessity - Tobacco Use Smoking Status: Never smoker Assessment/Plan All Active Problems (Last Reviewed 05/22/19 @ 15:31 by Tessy Osorio) Osteopenia (Acute) Breast cancer, right (Resolved) Facial droop (Acute) Generalized weakness (Acute) Multiple contusions (Acute) Anemia (Acute) GI bleed (Acute) Acute kidney failure (Acute) Troponin I above reference range (Acute) 1. Weakness left facial droop rule out CVA - some left sided weakness. stroke 3 weeks ago. pt poor historian cannot tell me what chronic deficits she has. unfortunately with anemia and + guiac holding xarelto, aspirin, plavix. 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 Repeat CT brain at 24 hours. Obtain neuro consult. Obtain EEG. 2. UTI - possibly contributing to above- GNR on cx, UA + , elevated WBC. continue rocephin. Afebrile. 3. Normocytic anemia - + guiac. surgery consulted: EGD monday. hold anticoags. Protonix IV BID. 4. Indeterminate trop - no CP. unclear etiology. maintain on tele. 5. Fall, contusions - xrays negative for acute process. 6. Possible hx DVT - xarelto held for #3. Check venous US BL LE. 7. Breast Cancer - pt of Dr. Liang on anastrozole. 8. Constipation - mag citrate x1 DVT ppx: SCDs [place] planning: [place] SNFs [place] This patient was seen by Alex Alfaro PA-C under the supervision of Dr. Palacios.
--- NOTE | 2020-03-03 14:49 | PCM.CONS.GEN ---
Problem List (1) Anemia Status: Acute Qualifiers: Anemia type: unspecified type Qualified Code(s): D64.9 - Anemia, unspecified (2) GI bleed Status: Acute Qualifiers: GI bleed type/associated pathology: unspecified gastrointestinal hemorrhage type Qualified Code(s): K92.2 - Gastrointestinal hemorrhage, unspecified Reason for Consult Date of Consultation: 03/03/20 Reason for Consultation: Anemia and positive fecal occult blood test History of Present Illness: The patient is a 80 year old F presents from long term with anemia. Patient notes that she has been having some lower abdominal cramping but no gross blood in her stool. She has been having dark stools. Her last colonoscopy was over 10 years ago. She has no nausea or vomiting. She says that she did not have any melena. Past Medical History Past Medical History (Chronic Problems): Chronic Problems (Last Reviewed 05/22/19 @ 15:31 by Tessy Osorio) History of right breast cancer (Chronic) History of stroke (Chronic) Diabetes (Chronic) History of pacemaker (Chronic) History of cardiac defibrillator placement (Chronic) Medical History: Medical History (Last Reviewed 05/22/19 @ 15:31 by Tessy Osorio) Cardiac defibrillator in place Z95.810 Diabetes mellitus E11.9 Heart disease I51.9 Left arm surgery Pacemaker Z95.0 2018 Stroke I63.9 2018 heart cath 2018 Allergies Iodinated Contrast Media [DYEE] Allergy (Verified 05/22/19 15:32) Anaphylaxis hydrocodone bitartrate [From Vicodin] Adverse Reaction (Verified 05/22/19 15:32) Nausea/Vom/Diarrhea Home Medications: Ambulatory Orders Medication Instructions Recorded hydroCHLOROthiazide 12.5 mg PO DAILY 11/17/16 [Hydrochlorothiazide] Acetaminophen [Tylenol] 650 mg PO Q4H PRN PRN 03/02/20 Anastrozole [Arimidex] 1 mg PO DAILY 03/02/20 Aspirin E.C. [Ecotrin] 81 mg PO DAILY@0800 03/02/20 Atorvastatin Calcium [Lipitor] 80 mg PO QHS 03/02/20 Calcium Carbonate 600 mg PO DAILY 03/02/20 Cholecalciferol (VIT D3) [Vitamin 1,000 unit PO DAILY 03/02/20 D] Clopidogrel Bisulfate [Clopidogrel] 75 mg PO DAILY 03/02/20 Furosemide [Lasix] 40 mg PO BID 03/02/20 Insulin Aspart [Novolog Flexpen 20 units SUBCUT X1 03/02/20 ([facility])] Insulin Aspart [Novolog Flexpen 24 units SUBCUT X1 03/02/20 ([facility])] Insulin Detemir [Levemir Flextouch] 35 unit SQ DAILY 03/02/20 Insulin Lispro [Humalog KwikPen] 5 unit SQ TID 03/02/20 Insulin Lispro [Humalog Kwikpen See Protocol SQ ACHS 03/02/20 U-100] Isosorbide Mononitrate [Isosorbide 30 mg PO DAILY 03/02/20 Mononitrate ER] Losartan Potassium [Cozaar] 25 mg PO DAILY 03/02/20 Magnesium Hydroxide [Milk of 30 ml PO DAILY PRN PRN 03/02/20 Magnesia] Melatonin 6 mg PO QHS 03/02/20 Metoprolol Succinate [Toprol Xl] 50 mg PO DAILY 03/02/20 Ondansetron HCl [Zofran] 4 mg PO Q6H PRN PRN 03/02/20 Polyethylene Glycol 3350 17 gm PO BID 03/02/20 Prednisone 20 mg PO DAILY 03/02/20 Promethazine HCl 25 mg PO DAILY PRN PRN 03/02/20 Rivaroxaban [Xarelto] 15 mg PO BID 03/02/20 Rivaroxaban [Xarelto] 20 mg PO DAILY 03/02/20 Sodium Phosphate,[place]-Dibasic 1 bottle UT DAILY PRN PRN 03/02/20 [Fleet Enema] Tramadol HCl [Ultram] 50 mg PO Q6H PRN PRN 03/02/20 Surgical History: Surgical History (Last Reviewed 05/22/19 @ 15:31 by Tessy Osorio) History of appendectomy Z98.890, Z90.49 History of cataract extraction Z98.49 History of cholecystectomy Z98.890, Z90.49 History of hernia repair Z98.890, Z87.19 History of open heart surgery Z98.890 History of tonsillectomy Z98.890, Z90.89 Lives: [facility] Smoking Status: Never smoker Alcohol: None Drugs: None - *Family History Maternal Family History: Family History (Last Reviewed 05/22/19 @ 15:31 by Tessy Osorio) Mother Arthritis History Items: No pertinent history Review of Systems Constitutional: Denies: Anorexia, Fever, Night Sweats Cardiovascular: Denies: Chest Pain Gastrointestinal: Reports: Abdominal Pain. Denies: Hematochezia, Nausea, Melena, Vomiting Skin: Denies: Jaundice Hematologic/ Lymphatic: Reports: Anemia Patient Problems: Active and Suspected Problems (Last Reviewed 05/22/19 @ 15:31 by Tessy Osorio) Facial droop (Acute) Generalized weakness (Acute) Multiple contusions (Acute) Anemia (Acute) GI bleed (Acute) Acute kidney failure (Acute) Troponin I above reference range (Acute) - Physical Exam Vitals/I&O's: Vital Signs Temp Pulse Resp BP Pulse Ox 98.6 F 72 18 118/40 L 97 03/03/20 11:30 03/03/20 11:30 03/03/20 11:30 03/03/20 11:30 03/03/20 11:30 Oxygen Flow Rate (L/min) 2 Oxygen Delivery Method Room Air Weight: 212 lb 9.609 oz Body Mass Index (BMI) 35.4 Finger Stick Blood Glucose 230 Intake and Output for Last 24 Hours 03/01/20 03/02/20 03/03/20 23:59 23:59 23:59 Intake Total 2621.25 / 2621.25 Output Total 550 / 550 Balance 2071.25 / 2071.25 General: Alert, No apparent distress, Confused HEENT: Atraumatic Neck: No JVD Lungs: Normal air movement Abdomen: Soft, Non Tender, Non-Distended Musculoskeletal: No Muscle Wasting Neurological: Cranial nerves II-XII grossly intact Psych/Mental Status: Normal Affect Microbiology Past 72 Hours 03/02/20 18:10 Urine Catheter - Catheter Urine Culture - Preliminary Gram negative yaz 03/02/20 21:45 Stool Stool Occult Blood (GLENN) - Final Occult Blood Positive Laboratory Results 03/02/20 18:10: Urine Color Yellow, Urine Clarity Clear, Urine pH 6.0, Ur Specific [place] 1.010, Urine Protein 30 H, Urine Glucose (UA) Normal, Urine Ketones Negative, Urine Occult Blood 50 H, Urine Nitrite Negative, Urine Bilirubin Negative, Urine Urobilinogen Normal, Ur Leukocyte Esterase Negative, Urine RBC 5-10 SEEN, Urine WBC 5-10 SEEN, Ur Squamous Epith Cells 0 SEEN, Urine Bacteria 2+, Urine Mucus 0 SEEN 03/02/20 20:20: WBC 11.3 H, RBC 2.75 L, Hgb 8.4 L, Hct 26.5 L, MCV 96.4, MCH 30.5, MCHC 31.7 L, RDW Std Deviation 56.7 H, RDW Coeff of Gunnar 16.6 H, Plt Count 289, MPV 10.0, Immature Gran % (Auto) 0.400, Neut % (Auto) 92.6 H, Lymph % (Auto) 4.2 L, [place] % (Auto) 2.7, Eos % (Auto) 0.0, Baso % (Auto) 0.1, Absolute Neuts (auto) 10.5 H, Absolute Lymphs (auto) 0.47 L, Nucleated RBC % 0, Differential Comment SEE COMMENT, Platelet Estimate ADEQUATE, RBC Morphology N CHROM, Anisocytosis RARE, Macrocytosis RARE 03/02/20 20:20: PT 18.5 H, INR 1.6, APTT 23.9 L 03/02/20 20:20: Sodium 139, Potassium 4.7, Chloride 95 L, Carbon Dioxide 39.0 H, Anion Gap 5, BUN 67 H, Creatinine 2.47 H, Estim Creat Clear Calc 17.57, Est GFR (MDRD) Af Amer 24 L, Est GFR (MDRD) Non-Af 20 L, BUN/Creatinine Ratio 27.1 H, Glucose 133 H, Calcium 8.6, Troponin I 0.053 H 03/02/20 21:45: Urine Color Yellow, Urine Clarity Cloudy, Urine pH 7.0, Ur Specific [place] 1.010, Urine Protein 30 H, Urine Glucose (UA) Normal, Urine Ketones Negative, Urine Occult Blood 150 H, Urine Nitrite Negative, Urine Bilirubin Negative, Urine Urobilinogen 4 H, Ur Leukocyte Esterase 500 H, Urine RBC 25-50 SEEN, Urine WBC >100 SEEN, Ur Squamous Epith Cells 0 SEEN, Urine Bacteria 0 SEEN, Urine Mucus 0 SEEN 03/02/20 22:50: Blood Type A POSITIVE, Antibody Screen NEGATIVE 03/03/20 01:05: Troponin I 0.056 H 03/03/20 05:45: WBC 12.0 H, RBC 2.52 L, Hgb 7.7 L, Hct 24.4 L, MCV 96.8, MCH 30.6, MCHC 31.6 L, RDW Std Deviation 57.1 H, RDW Coeff of Gunnar 16.5 H, Plt Count 265, MPV 10.1, Immature Gran % (Auto) 0.400, Neut % (Auto) 80.0 H, Lymph % (Auto) 12.6 L, [place] % (Auto) 6.4, Eos % (Auto) 0.4, Baso % (Auto) 0.2, Absolute Neuts (auto) 9.6 H, Absolute Lymphs (auto) 1.52, Nucleated RBC % 0 03/03/20 05:45: Sodium 139, Potassium 4.2, Chloride 99, Carbon Dioxide 36.0 H, Anion Gap 4 L, BUN 63 H, Creatinine 2.23 H, Estim Creat Clear Calc 18.71, Est GFR (MDRD) Af Amer 27 L, Est GFR (MDRD) Non-Af 23 L, BUN/Creatinine Ratio 28.3 H, Glucose 111 H, Calcium 8.1 L, Troponin I 0.063 H, Triglycerides 112, Cholesterol 119, LDL Cholesterol 45, VLDL Cholesterol 22, HDL Cholesterol 52 03/03/20 06:37: POC Glucose 107 03/03/20 11:35: POC Glucose 241 H 03/03/20 13:32: COVID-19 ([facility]) Pending Clinical Impression(s) from Imaging Studies Brain CT 03/02/20 17:03 IMPRESSION: Chronic involutional changes of the brain. There is no intracranial hemorrhage or evidence of acute infarct. Electronically Signed: Romain Heredia MD at 17:21 EDT , Service support , ADDENDUM: 03/02/20 1730 IMPRESSION: Chronic involutional changes of the brain. There is no intracranial hemorrhage or evidence of acute infarct. N.B. : The above information has been verbally conveyed by Romain Heredia MD to MATEO HUA DO on 03/02/2020 17:23:37 (ET). Electronically Signed: Romain Heredia MD at 17:21 EDT , Service support , Chest X-Ray 03/02/20 18:17 IMPRESSION: Degenerative changes, as described above. No demonstrated acute cardiopulmonary process. Electronically Signed: Randy Rosa MD at 18:51 EDT , Service support , Humerus X-Ray 03/02/20 18:48 IMPRESSION: Degenerative changes of the left glenohumeral and acromioclavicular articulations. There is no evidence of left humeral fracture or dislocation. Electronically Signed: Romain Heredia MD at 20:27 EDT , Service support , Elbow X-Ray 03/02/20 19:35 IMPRESSION: No evidence of fracture or dislocation. Electronically Signed: Romain Heredia MD at 20:28 EDT , Service support , Current Medications Acetaminophen (Tylenol) 650 mg PO Q4H PRN PRN PRN Reason: Pain Score 1-10/10 Anastrozole (Arimidex) 1 mg PO DAILY [facility] Last Admin: 03/03/20 09:56 Dose: 1 mg Documented by: Atorvastatin Calcium (Lipitor) 80 mg PO QHS [facility] Calcium Carbonate (Tums) 500 mg PO DAILY [facility] Last Admin: 03/03/20 09:58 Dose: 500 mg Documented by: Cholecalciferol (Vitamin D (25mcg)) 1,000 unit PO DAILY [facility] Last Admin: 03/03/20 09:58 Dose: 1,000 unit Documented by: Dextrose (D50w Syringe) 0 gm IV X1 PRN; Protocol PRN Reason: Hypoglycemia Glucagon () 1 mg IM .X1 PRN PRN Reason: Hypoglycemia Sodium Chloride () 1,000 mls @ 75 mls/hr IV .[id number] [facility] Last Admin: 03/03/20 13:35 Dose: 75 mls/hr Documented by: Ceftriaxone Sodium (Rocephin) 1 gm in 50 mls @ 100 mls/hr IV Q24@2200 DANIELLE Sodium Chloride () 250 mls @ 15 mls/hr IV .[id number] PRN PRN Reason: Saline Flush Sodium Chloride () 250 mls @ 15 mls/hr IV .[id number] PRN PRN Reason: Additional IVPB Infusion Pantoprazole Sodium 40 mg/ (Sodium Chloride) 110 mls @ 330 mls/hr IV Q12 [facility] Last Infusion: 03/03/20 10:54 Dose: Infused Documented by: Insulin Glargine (Lantus ([facility])) 35 units SC DAILY [facility] Last Admin: 03/03/20 09:58 Dose: 35 units Documented by: Insulin Human Lispro (Humalog Kwikpen ([facility])) 0 unit SC ACHS [facility]; Protocol Last Admin: 03/03/20 11:38 Dose: 3 units Documented by: Isosorbide Mononitrate (Imdur) 30 mg PO DAILY [facility] Last Admin: 03/03/20 09:56 Dose: 30 mg Documented by: Losartan Potassium (Cozaar) 25 mg PO DAILY [facility] Last Admin: 03/03/20 09:56 Dose: 25 mg Documented by: Melatonin (Melatonin) 6 mg PO QHS [facility] Metoprolol Succinate (Toprol Xl (Beta Corin)) 50 mg PO DAILY [facility] Last Admin: 03/03/20 09:57 Dose: 50 mg Documented by: Ondansetron HCl (Zofran Odt) 4 mg PO Q6H PRN PRN PRN Reason: NAUSEA/VOMITING Polyethylene Glycol (Miralax) 17 gm PO BID [facility] Last Admin: 03/03/20 09:58 Dose: 17 gm Documented by: [facility] () [facility] Last Admin: 03/03/20 09:55 Dose: 20 mg Documented by: Sodium Chloride () 10 - 40 ml IV UD PRN PRN Reason: SALINE FLUSH Last Admin: 03/03/20 05:47 Dose: 20 ml Documented by: Assessment/Plan All Active Problems (Last Reviewed 05/22/19 @ 15:31 by Tessy Osorio) Osteopenia (Acute) Breast cancer, right (Resolved) Facial droop (Acute) Generalized weakness (Acute) Multiple contusions (Acute) Anemia (Acute) GI bleed (Acute) Acute kidney failure (Acute) Troponin I above reference range (Acute) 80-year-old female with GI bleed and anemia 1. Patient has anemia with a hemoglobin of 7.7 and she had a positive fecal occult blood test. Patient is not having any gross blood per stool. The patient is confused and a poor historian. There is questionable stroke. Neurology has been consulted. She is unable to have MRI due to pacemaker. She is on Xarelto and Plavix. Plavix is continued due to recent stroke. Xarelto has been held. She is also on aspirin. I would recommend clarification with neurology consult as to what anticoagulation can be stopped and if there is an active stroke happening. I would be able to perform upper and lower endoscopy at the end of this week for source of the GI bleed. Currently I would recommend magnesium citrate as the patient reports she is constipated and had an enema Monday to produce a bowel movement. I will continue to follow and perform a bowel prep and EGD and colonoscopy when appropriate. Michele Suazo MD Pager: [facility] [address] [place] [address], [address] [place] [phone] Office:
--- NOTE | 2020-03-03 17:15 | CT_ITS ---
STUDY: CT BRAIN WITHOUT CONTRAST REASON FOR EXAM: Female, 80 years old. CVA F/U,BREAST CA, DB, PACER RADIATION DOSAGE (If Supplied By Facility): CTDIvol = ( 44.99 ) mGy, DLP = ( 796.11 ) mGycm TECHNIQUE: Transaxial CT imaging of the brain was performed without administration of intravenous contrast material. Individualized dose optimization techniques were used for this CT. COMPARISON: Prior study of 03/02/2020 FINDINGS: Normal soft tissue structures. Normal calvarium. There is mild cerebral atrophy with widening of the extra-axial spaces and ventricular dilatation. There are areas of decreased attenuation within the white matter tracts of the supratentorial brain, consistent with microvascular disease changes. Normal basal ganglia and thalami. Normal brainstem. Normal cerebellum. There is no intracranial hemorrhage. There are no findings of an acute ischemic infarction. Normal visualized paranasal sinuses. CT/Brain/Head without Contrast IMPRESSION: Chronic involutional changes of the brain. There is no intracranial hemorrhage or evidence of acute infarct. Findings are stable in the interval. Electronically Signed: Romain Heredia MD at 17:42 EDT , Service support ,
[2020-03-03 17:30] LABS: Bedside Glucose 298 mg/dL (70-110)
[2020-03-03] MEDS: Magnesium Citrate 300 ML 150 ML PO (17:34)
[2020-03-03 22:05] LABS: Bedside Glucose 317 mg/dL (70-110)
[2020-03-03] MEDS: Atorvastatin Calcium 80 MG Tablet PO (22:06)
[2020-03-03] MEDS: MELATONIN 3 MG TABLET 6 MG PO (22:06)
--- NOTE | 2020-03-03 22:35 | NURSING ---
Bedside report given to MIGUEL ÁNGEL Wilder. Relinquished care of pt at this time.
[2020-03-03] MEDS: Ceftriaxone 1 GM/50 ML BAG IV (22:56)
[2020-03-04] VITALS (13 sets, daily range): BP systolic 115–150; BP diastolic 50–55; PULSE 57–71; RESP 17–18; TEMP 36.6–36.8; O2SAT 92–97; BMI 35.4
[2020-03-04] MEDS: 0.9% Normal Saline 1,000 ML 75 ML IV ×2 (03:48→18:52)
[2020-03-04] MEDS: Insulin Lispro 100 UNIT/ML INSULN.PEN SC ×4 (06:35→21:44)
[2020-03-04 06:50] LABS: Bedside Glucose 293 mg/dL (70-110)
[2020-03-04 08:32] LABS: Absolute Lymphocyte Count 1.67 X10^3/uL (0.83-4.51); Absolute Neutrophil Count 8.3 X10^3/uL (2.0-7.7); Basophil# 0.02 X10^3/uL; Basophil% 0.2 % (0-1); Eosinophil# 0.07 X10^3/uL; Eosinophils% 0.6 % (0-5); Hematocrit 23.5 % (37-47); Hemoglobin 7.3 g/dL (12.0-15.0); Lymphocyte # 1.67 X10^3/ul (4.0); Lymphocyte % 15.4 % (19-41); Mean Corp Hgb Conc 31.1 g/dL (32-36); Mean Corpuscular Hgb 30.3 pg (27.0-32.0); Mean Corpuscular Volume 97.5 fL (81-99); Mean Platelet Vol. 10.1 fl (6.2-12.0); Monocyte# 0.79 X10^3/uL; Monocyte% 7.3 % (0-10); NRBC Flagged by Analyzer 0 % (0-5); Neutrophil # 8.25 X10^3/uL (2.7-7.7); Platelet Count 256 K/mm3 (150-450); RBC Distribution Width CV 16.2 % (11.6-14.6); RBC Distribution Width SD 56.2 fl (35.1-43.9); Red Blood Count 2.41 M/mm3 (4.2-5.4); White Blood Count 10.9 K/mm3 (4.4-11.0)
[2020-03-04 08:50] LABS: Anion Gap 4 (5-15); BUN 53 mg/dL (7-18); BUN/Creat Ratio 30.1 RATIO (10-20); Calcium,Total 7.9 mg/dL (8.5-10.1); Chloride 102 mmol/L (98-107); Creatinine, Serum 1.76 mg/dL (0.55-1.02); EST Glomerular Filtration Rate 30 mL/min (>60); Est Glom Filt Rate - Afr Amer 36 mL/min (>60); Estimated Creatinine Clearance 23.71 ml/min; Glucose 276 mg/dL (74-106); Potassium 4.3 mmol/L (3.5-5.1); Sodium Level 140 mmol/L (136-145)
[2020-03-04] MEDS: Anastrozole 1 MG Tablet PO (09:03)
[2020-03-04] MEDS: predniSONE 20 MG Tablet PO (09:03)
[2020-03-04] MEDS: Polyethylene Glycol 3350 17 GM PACKET PO (09:04)
[2020-03-04] MEDS: Isosorbide Mononitrate 30 MG Tablet PO (09:04)
[2020-03-04] MEDS: Calcium Carbonate 500 MG Tablet PO (09:04)
[2020-03-04] MEDS: Losartan Potassium 25 MG Tablet PO (09:04)
[2020-03-04] MEDS: Metoprolol(XL)Succ 50 MG Tablet PO (09:04)
[2020-03-04] MEDS: 0.9% Saline Lock 10 ML Syringe IV (09:08)
--- NOTE | 2020-03-04 10:03 | PN.SURG_ITS ---
Patient Problems: Active and Suspected Problems (Last Reviewed 05/22/19 @ 15:31 by Tessy Osorio) Facial droop (Acute) Generalized weakness (Acute) Multiple contusions (Acute) Anemia (Acute) GI bleed (Acute) Acute kidney failure (Acute) Troponin I above reference range (Acute) Subjective: Patient did not have any bleeding overnight. No abdominal pain or nausea or vomiting. - Physical Exam Vitals/I&O's: Vital Signs Temp Pulse Resp BP Pulse Ox 98.1 F 70 18 125/52 H 97 03/04/20 08:45 03/04/20 09:04 03/04/20 08:45 03/04/20 08:45 03/04/20 08:45 Oxygen Flow Rate (L/min) 2 Oxygen Delivery Method Room Air Weight: 212 lb 9.609 oz Body Mass Index (BMI) 35.4 Finger Stick Blood Glucose 230 Intake and Output for Last 24 Hours 03/02/20 03/03/20 03/04/20 23:59 23:59 23:59 Intake Total 3887.50 / 3887.50 1002.5 / 1002.5 Output Total 900 / 900 250 / 250 Balance 2987.50 / 2987.50 752.5 / 752.5 General: Alert, Oriented x3 Lungs: Normal air movement Cardiovascular: Regular rate, Regular Rhythm Abdomen: Soft, Non Tender, Non-Distended Microbiology Past 72 Hours 03/02/20 18:10 Urine Catheter - Catheter Urine Culture - Final Citrobacter koseri 03/02/20 21:45 Stool Stool Occult Blood (GLENN) - Final Occult Blood Positive Laboratory Results 03/03/20 11:35: POC Glucose 241 H 03/03/20 13:32: COVID-19 ([facility]) Negative 03/03/20 17:07: POC Glucose 298 H 03/03/20 21:59: POC Glucose 317 H 03/04/20 06:34: POC Glucose 293 H 03/04/20 08:15: WBC 10.9, RBC 2.41 L, Hgb 7.3 L, Hct 23.5 L, MCV 97.5, MCH 30.3, MCHC 31.1 L, RDW Std Deviation 56.2 H, RDW Coeff of Gunnar 16.2 H, Plt Count 256, MPV 10.1, Immature Gran % (Auto) 0.500, Neut % (Auto) 76.0 H, Lymph % (Auto) 15.4 L, [place] % (Auto) 7.3, Eos % (Auto) 0.6, Baso % (Auto) 0.2, Absolute Neuts (auto) 8.3 H, Absolute Lymphs (auto) 1.67, Nucleated RBC % 0 03/04/20 08:15: Sodium 140, Potassium 4.3, Chloride 102, Carbon Dioxide 34.0 H, Anion Gap 4 L, BUN 53 H, Creatinine 1.76 H, Estim Creat Clear Calc 23.71, Est GFR (MDRD) Af Amer 36 L, Est GFR (MDRD) Non-Af 30 L, BUN/Creatinine Ratio 30.1 H , Glucose 276 H, Calcium 7.9 L Current Medications Acetaminophen (Tylenol) 650 mg PO Q4H PRN PRN PRN Reason: Pain Score 1-10/10 Anastrozole (Arimidex) 1 mg PO DAILY [facility] Last Admin: 03/04/20 09:03 Dose: 1 mg Documented by: Atorvastatin Calcium (Lipitor) 80 mg PO QHS [facility] Last Admin: 03/03/20 22:06 Dose: 80 mg Documented by: Bisacodyl (Dulcolax) 20 mg PO 1400 ONE Stop: 03/04/20 14:01 Calcium Carbonate (Tums) 500 mg PO DAILY [facility] Last Admin: 03/04/20 09:04 Dose: 500 mg Documented by: Cephalexin (Keflex) 500 mg PO Q12 [facility] Cholecalciferol (Vitamin D (25mcg)) 1,000 unit PO DAILY [facility] Last Admin: 03/04/20 09:04 Dose: 1,000 unit Documented by: Dextrose (D50w Syringe) 0 gm IV X1 PRN; Protocol PRN Reason: Hypoglycemia Glucagon () 1 mg IM .X1 PRN PRN Reason: Hypoglycemia Sodium Chloride () 1,000 mls @ 75 mls/hr IV .[id number] [facility] Last Admin: 03/04/20 03:48 Dose: 75 mls/hr Documented by: Sodium Chloride () 250 mls @ 15 mls/hr IV .[id number] PRN PRN Reason: Saline Flush Sodium Chloride () 250 mls @ 15 mls/hr IV .[id number] PRN PRN Reason: Additional IVPB Infusion Pantoprazole Sodium 40 mg/ (Sodium Chloride) 110 mls @ 330 mls/hr IV Q12 [facility] Last Infusion: 03/04/20 09:53 Dose: Infused Documented by: Insulin Glargine (Lantus ([facility])) 35 units SC DAILY [facility] Last Admin: 03/03/20 09:58 Dose: 35 units Documented by: Insulin Human Lispro (Humalog Kwikpen ([facility])) 0 unit SC ACHS [facility]; Protocol Last Admin: 03/04/20 06:35 Dose: 4 units Documented by: Isosorbide Mononitrate (Imdur) 30 mg PO DAILY [facility] Last Admin: 03/04/20 09:04 Dose: 30 mg Documented by: Losartan Potassium (Cozaar) 25 mg PO DAILY [facility] Last Admin: 03/04/20 09:04 Dose: 25 mg Documented by: Melatonin (Melatonin) 6 mg PO QHS [facility] Last Admin: 03/03/20 22:06 Dose: 6 mg Documented by: Metoprolol Succinate (Toprol Xl (Beta Corin)) 50 mg PO DAILY [facility] Last Admin: 03/04/20 09:04 Dose: 50 mg Documented by: Ondansetron HCl (Zofran Odt) 4 mg PO Q6H PRN PRN PRN Reason: NAUSEA/VOMITING Polyethylene Glycol (Miralax) 17 gm PO BID [facility] Last Admin: 03/04/20 09:04 Dose: 17 gm Documented by: Polyethylene Glycol (Clearlax For Bowel Prep) 1 bottle PO DAILY@1600 ONE Stop: 03/04/20 16:01 [facility] () [facility] Admin: 03/04/20 09:03 Dose: 20 mg Documented by: Sodium Chloride () 10 - 40 ml IV UD PRN PRN Reason: SALINE FLUSH Last Admin: 03/04/20 09:08 Dose: 10 ml Documented by: Medical Necessity - Tobacco Use Smoking Status: Never smoker Assessment/Plan All Active Problems (Last Reviewed 05/22/19 @ 15:31 by Tessy Osorio) Osteopenia (Acute) Breast cancer, right (Resolved) Facial droop (Acute) Generalized weakness (Acute) Multiple contusions (Acute) Anemia (Acute) GI bleed (Acute) Acute kidney failure (Acute) Troponin I above reference range (Acute) 80-year-old female with positive fecal occult blood and anemia 1. Patient is continued to have anemia and she has not had any gross bloody bowel movements. The anticoagulation has been stopped. I will perform a bowel prep today and plan for EGD and colonoscopy tomorrow. I will discuss this with the patient's son as well. I explained endoscopy in detail to the patient. I explained the risks including but not limited to stroke or heart attack with anesthesia, perforation of the GI tract, bleeding, infection. I explained that any of these could necessitate further emergency surgery. The patient understands and all questions were answered sufficiently. The patient wishes to proceed with procedure. Michele Suazo MD Pager: [facility] [address] [place] [address], [address] [place] [address] Office:
[2020-03-04 11:15] LABS: Bedside Glucose 301 mg/dL (70-110)
--- NOTE | 2020-03-04 11:47 | CASEMGMT ---
ALEX faxed all necessary information to [employer] to get authorization for patient to go to TCU at d/c. Marybel WELLS MSW
[2020-03-04] MEDS: Sodium Ferric Gluconat 250 MG in 0.9% Normal Saline 250 ML 135 MG IV (12:02)
--- NOTE | 2020-03-04 12:49 | PN_ITS ---
Patient Problems: Active and Suspected Problems (Last Reviewed 05/22/19 @ 15:31 by Tessy Osorio) Facial droop (Acute) Generalized weakness (Acute) Multiple contusions (Acute) Anemia (Acute) GI bleed (Acute) Acute kidney failure (Acute) Troponin I above reference range (Acute) Reason for Visit: weakness Subjective: ongoing generalized weakness. No abd pain/nausea/vomiting. trial centeno out, does not normally use at home. no focal deficits. no vision/hearing change. no parasthesias. no BRENNER. no dizziness/LH. Vitals/I&O's: Vital Signs Temp Pulse Resp BP Pulse Ox 98.1 F 63 18 125/52 H 97 03/04/20 08:45 03/04/20 11:05 03/04/20 08:45 03/04/20 08:45 03/04/20 08:45 Oxygen Flow Rate (L/min) 2 Oxygen Delivery Method Room Air Weight: 212 lb 9.609 oz Body Mass Index (BMI) 35.4 Finger Stick Blood Glucose 230 Intake and Output for Last 24 Hours 03/02/20 03/03/20 03/04/20 23:59 23:59 23:59 Intake Total 3887.50 / 3887.50 2020.0 / 2020.0 Output Total 900 / 900 700 / 700 Balance 2987.50 / 2987.50 1320.0 / 1320.0 General: Alert, Oriented x3, Cooperative HEENT: Atraumatic, PERRLA, EOMI, Normocephalic Neck: Supple, No JVD, Negative Carotid Bruits Lungs: Clear to auscultation, Normal air movement Cardiovascular: Regular rate, No murmurs Abdomen: Bowel Sounds Present, Soft, Non Tender, Obese Extremities: No edema, Capillary Refill Less than 3 Seconds Skin: No rashes, No breakdown, - - pallor Musculoskeletal: No Tenderness to Palpation of Joints or Extremities Neurological: Cranial nerves II-XII grossly intact Psych/Mental Status: Normal Affect, Appropriate, Alert and oriented to time, place, person, mood and affect Microbiology Past 72 Hours 03/02/20 18:10 Urine Catheter - Catheter Urine Culture - Final Citrobacter koseri 03/02/20 21:45 Stool Stool Occult Blood (GLENN) - Final Occult Blood Positive Laboratory Results 03/03/20 13:32: COVID-19 (VINCENZO) Negative 03/03/20 17:07: POC Glucose 298 H 03/03/20 21:59: POC Glucose 317 H 03/04/20 06:34: POC Glucose 293 H 03/04/20 08:15: WBC 10.9, RBC 2.41 L, Hgb 7.3 L, Hct 23.5 L, MCV 97.5, MCH 30.3, MCHC 31.1 L, RDW Std Deviation 56.2 H, RDW Coeff of Gunnar 16.2 H, Plt Count 256, MPV 10.1, Immature Gran % (Auto) 0.500, Neut % (Auto) 76.0 H, Lymph % (Auto) 15.4 L, [place] % (Auto) 7.3, Eos % (Auto) 0.6, Baso % (Auto) 0.2, Absolute Neuts (auto) 8.3 H, Absolute Lymphs (auto) 1.67, Nucleated RBC % 0 03/04/20 08:15: Sodium 140, Potassium 4.3, Chloride 102, Carbon Dioxide 34.0 H, Anion Gap 4 L, BUN 53 H, Creatinine 1.76 H, Estim Creat Clear Calc 23.71, Est GFR (MDRD) Af Amer 36 L, Est GFR (MDRD) Non-Af 30 L, BUN/Creatinine Ratio 30.1 H , Glucose 276 H, Calcium 7.9 L 03/04/20 11:06: POC Glucose 301 H Current Medications Acetaminophen (Tylenol) 650 mg PO Q4H PRN PRN PRN Reason: Pain Score 1-10/10 Anastrozole (Arimidex) 1 mg PO DAILY [facility] Last Admin: 03/04/20 09:03 Dose: 1 mg Documented by: Atorvastatin Calcium (Lipitor) 80 mg PO QHS [facility] Last Admin: 03/03/20 22:06 Dose: 80 mg Documented by: Bisacodyl (Dulcolax) 20 mg PO 1400 ONE Stop: 03/04/20 14:01 Calcium Carbonate (Tums) 500 mg PO DAILY [facility] Last Admin: 03/04/20 09:04 Dose: 500 mg Documented by: Cephalexin (Keflex) 500 mg PO Q12 [facility] Cholecalciferol (Vitamin D (25mcg)) 1,000 unit PO DAILY [facility] Last Admin: 03/04/20 09:04 Dose: 1,000 unit Documented by: Dextrose (D50w Syringe) 0 gm IV X1 PRN; Protocol PRN Reason: Hypoglycemia Glucagon () 1 mg IM .X1 PRN PRN Reason: Hypoglycemia Sodium Chloride () 1,000 mls @ 75 mls/hr IV .[id number] [facility] Last Infusion: 03/04/20 12:02 Dose: 0 mls/hr Documented by: Sodium Chloride () 250 mls @ 15 mls/hr IV .[id number] PRN PRN Reason: Saline Flush Sodium Chloride () 250 mls @ 15 mls/hr IV .[id number] PRN PRN Reason: Additional IVPB Infusion Pantoprazole Sodium 40 mg/ (Sodium Chloride) 110 mls @ 330 mls/hr IV Q12 [facility] Last Infusion: 03/04/20 09:53 Dose: Infused Documented by: Ferric Sodium Gluconate Complex 250 mg/ Sodium Chloride 270 mls @ 135 mls/hr IV X1 ONE Stop: 03/04/20 13:44 Last Admin: 03/04/20 12:02 Dose: 135 mls/hr Documented by: Insulin Glargine (Lantus (Bk)) 35 units SC DAILY [facility] Last Admin: 03/04/20 11:09 Dose: 35 units Documented by: Insulin Human Lispro (Humalog Kwikpen (Bk)) 0 unit SC ACHS [facility]; Protocol Last Admin: 03/04/20 11:10 Dose: 4 units Documented by: Isosorbide Mononitrate (Imdur) 30 mg PO DAILY [facility] Last Admin: 03/04/20 09:04 Dose: 30 mg Documented by: Losartan Potassium (Cozaar) 25 mg PO DAILY [facility] Last Admin: 03/04/20 09:04 Dose: 25 mg Documented by: Melatonin (Melatonin) 6 mg PO QHS [facility] Last Admin: 03/03/20 22:06 Dose: 6 mg Documented by: Metoprolol Succinate (Toprol Xl (Beta Corin)) 50 mg PO DAILY [facility] Last Admin: 03/04/20 09:04 Dose: 50 mg Documented by: Ondansetron HCl (Zofran Odt) 4 mg PO Q6H PRN PRN PRN Reason: NAUSEA/VOMITING Polyethylene Glycol (Miralax) 17 gm PO BID [facility] Last Admin: 03/04/20 09:04 Dose: 17 gm Documented by: Polyethylene Glycol (Clearlax For Bowel Prep) 1 bottle PO DAILY@1600 ONE Stop: 03/04/20 16:01 Prednisone () 20 mg PO DAILYCM [facility] Last Admin: 03/04/20 09:03 Dose: 20 mg Documented by: Sodium Chloride () 10 - 40 ml IV UD PRN PRN Reason: SALINE FLUSH Last Admin: 03/04/20 09:08 Dose: 10 ml Documented by: STROKE Vital Signs/Narrative: Vital Signs Pulse 03/04/20 11:05 63 03/04/20 09:04 70 Medical Necessity - Tobacco Use Smoking Status: Never smoker Assessment/Plan All Active Problems (Last Reviewed 05/22/19 @ 15:31 by Tessy Osorio) Osteopenia (Acute) Breast cancer, right (Resolved) Facial droop (Acute) Generalized weakness (Acute) Multiple contusions (Acute) Anemia (Acute) GI bleed (Acute) Acute kidney failure (Acute) Troponin I above reference range (Acute) 1. Weakness left facial droop rule out CVA - per neuro eval less likely stroke, pt should not be on asa/plavix/xarelto. ok to only use aspirin but this will be held until bleeding workup complete. 2. UTI - Citrobacter koseri, changed abx to keflex baseline on C/S. remove centeno. voiding trial. 3. Normocytic anemia - + guiac. surgery consulted: Endoscopy monday. hold anticoags. Protonix IV BID. 4. Indeterminate trop - no CP. unclear etiology. maintain on tele. 5. Fall, contusions - xrays negative for acute process. 6. Possible hx DVT - US neg. pt off xarelto due to #3. 7. Breast Cancer - pt of Dr. Liang on anastrozole. DVT ppx: SCDs DC planning: planning to change SNFs at [place] This patient was seen by Alex Alfaro PA-C under the supervision of Dr. Palacios.
--- NOTE | 2020-03-04 13:21 | CHAPLAIN ---
Type of Pastoral Visit _x__ Initial Visit ___ Follow-up Visit ___ On-call Visit ___ General Patient Visit ___ Spiritual Assessment ___ Family Conference ___ Bereavement ___ Rapid Response ___ Code Blue ___ Other (describe below) Pastoral Care Referral From _x_ Patient ___ Family ___ Nurse ___ Physician ___ Gold Marker ___ Spanish Tutor ___ Other (describe below) Sacrament/Intervention _x__ Active listening ___ Anointing ___ Christian ___ Bereavement ___ Communion _x__ Simran exploration ___ _x__ Life review _x__ Prayer ___ Reconciliation ___ Sacrament of Sick _x__ Supportive presence ___ Wedding ___ Other (describe below) Pastoral Comments spiritual life is very important to this patient and her conversation revolved around her simran and hope; prayer requested
--- NOTE | 2020-03-04 13:21 | CASEMGMT ---
SW received a call from [facility] with [facility] and patient was approved to go to TCU. Marybel VELASCO
[2020-03-04] MEDS: Bisacodyl 5 MG Tablet 20 MG PO (13:59)
[2020-03-04] MEDS: Polyethylene Glycol 3350 BOWEL PREP 1 BOTTLE PO (16:02)
[2020-03-04 17:05] LABS: Bedside Glucose 373 mg/dL (70-110)
[2020-03-04] MEDS: MELATONIN 3 MG TABLET 6 MG PO (21:35)
[2020-03-04] MEDS: Cephalexin 500 MG Capsule PO (21:36)
[2020-03-04] MEDS: Atorvastatin Calcium 80 MG Tablet PO (21:36)
[2020-03-04 21:56] LABS: Bedside Glucose 284 mg/dL (70-110)
[2020-03-05] VITALS (11 sets, daily range): BP systolic 122–155; BP diastolic 37–61; PULSE 57–71; RESP 16–18; TEMP 36.1–36.7; O2SAT 90–99; BMI 35.4
--- NOTE | 2020-03-05 04:13 | NURSING ---
Patient unsure on type/brand of pacemaker she has. Asked to call son in AM, her card is in her handbag.
[2020-03-05] MEDS: 0.9% Saline Lock 10 ML Syringe IV ×2 (05:14→16:33)
[2020-03-05] MEDS: Ondansetron ODT 4 MG Tablet PO (05:16)
--- NOTE | 2020-03-05 05:55 | EKG12_ITS ---
Test Reason : AM EKG Blood Pressure : / mmHG Vent. Rate : 060 BPM Atrial Rate : 072 BPM P-R Int : 000 ms QRS Dur : 204 ms QT Int : 526 ms P-R-T Axes : 000 -63 110 degrees QTc Int : 526 ms Ventricular-paced rhythm Abnormal ECG When compared with ECG of 02-MAR-2020 17:52, No significant change was found Confirmed by KRAIG HERNANDEZ, ZITA ([id number]), art editor VANI PATEL ([id number]) on 03/09/2020 11:12:31 AM Referred By: CHILO Confirmed By:ZITA CORNELL MD
[2020-03-05 06:13] LABS: Absolute Lymphocyte Count 1.65 X10^3/uL (0.83-4.51); Absolute Neutrophil Count 7.2 X10^3/uL (2.0-7.7); Basophil# 0.02 X10^3/uL; Basophil% 0.2 % (0-1); Eosinophil# 0.12 X10^3/uL; Eosinophils% 1.2 % (0-5); Hematocrit 24.5 % (37-47); Hemoglobin 7.8 g/dL (12.0-15.0); Lymphocyte # 1.65 X10^3/ul (4.0); Lymphocyte % 16.8 % (19-41); Mean Corp Hgb Conc 31.8 g/dL (32-36); Mean Corpuscular Hgb 31.1 pg (27.0-32.0); Mean Corpuscular Volume 97.6 fL (81-99); Mean Platelet Vol. 9.9 fl (6.2-12.0); Monocyte# 0.75 X10^3/uL; Monocyte% 7.6 % (0-10); NRBC Flagged by Analyzer 0 % (0-5); Neutrophil # 7.23 X10^3/uL (2.7-7.7); Neutrophil % 73.6 % (47-70); Platelet Count 251 K/mm3 (150-450); RBC Distribution Width CV 16.2 % (11.6-14.6); RBC Distribution Width SD 56.9 fl (35.1-43.9); Red Blood Count 2.51 M/mm3 (4.2-5.4); White Blood Count 9.8 K/mm3 (4.4-11.0)
[2020-03-05 06:45] LABS: Anion Gap 4 (5-15); BUN 36 mg/dL (7-18); BUN/Creat Ratio 29.8 RATIO (10-20); Chloride 105 mmol/L (98-107); Creatinine, Serum 1.21 mg/dL (0.55-1.02); EST Glomerular Filtration Rate 46 mL/min (>60); Est Glom Filt Rate - Afr Amer 55 mL/min (>60); Estimated Creatinine Clearance 34.48 ml/min; Glucose 145 mg/dL (74-106); Sodium Level 142 mmol/L (136-145)
[2020-03-05 06:46] LABS: Bedside Glucose 122 mg/dL (70-110)
[2020-03-05 07:05] LABS: International Normalized Ratio 1.2; Prothrombin Time (Protime)PT. 14.6 SECONDS (11.7-14.9)
[2020-03-05 07:06] LABS: Partial Thromboplast Time 25.3 Seconds (24.1-36.2)
[2020-03-05] MEDS: 0.9% Normal Saline 1,000 ML 75 ML IV ×2 (08:34→21:56)
[2020-03-05] MEDS: Anastrozole 1 MG Tablet PO (08:36)
[2020-03-05] MEDS: Cephalexin 500 MG Capsule PO ×2 (08:37→21:44)
[2020-03-05] MEDS: Metoprolol(XL)Succ 50 MG Tablet PO (08:37)
[2020-03-05] MEDS: predniSONE 20 MG Tablet PO (08:38)
[2020-03-05] MEDS: Isosorbide Mononitrate 30 MG Tablet PO (08:38)
[2020-03-05] MEDS: Losartan Potassium 25 MG Tablet PO (08:38)
[2020-03-05] MEDS: Calcium Carbonate 500 MG Tablet PO (08:39)
--- NOTE | 2020-03-05 10:01 | PN.SURG_ITS ---
Patient Problems: Active and Suspected Problems (Last Reviewed 05/22/19 @ 15:31 by Tessy Osorio) Facial droop (Acute) Generalized weakness (Acute) Multiple contusions (Acute) Anemia (Acute) GI bleed (Acute) Acute kidney failure (Acute) Troponin I above reference range (Acute) Subjective: Patient is still not adequately bowel prep and she is having thick brown stool - Physical Exam Vitals/I&O's: Vital Signs Temp Pulse Resp BP Pulse Ox 97.0 F L 60 16 130/37 H 96 03/05/20 08:07 03/05/20 08:37 03/05/20 08:07 03/05/20 08:07 03/05/20 08:07 Oxygen Flow Rate (L/min) 2 Oxygen Delivery Method Room Air Weight: 212 lb 9.609 oz Body Mass Index (BMI) 35.4 Finger Stick Blood Glucose 230 Intake and Output for Last 24 Hours 03/03/20 03/04/20 03/05/20 23:59 23:59 23:59 Intake Total 3887.50 / 3887.50 4098.75 / 4098.75 795 / 795 Output Total 900 / 900 1999 / 1999 600 / 600 Balance 2987.50 / 2987.50 2098.75 / 2098.75 195 / 195 General: Alert, Cooperative Lungs: Normal air movement Abdomen: Soft, Non Tender, Non-Distended Microbiology Past 72 Hours 03/02/20 18:10 Urine Catheter - Catheter Urine Culture - Final Citrobacter koseri 03/02/20 21:45 Stool Stool Occult Blood (GLENN) - Final Occult Blood Positive Laboratory Results 03/04/20 11:06: POC Glucose 301 H 03/04/20 16:00: POC Glucose 373 H 03/04/20 21:40: POC Glucose 284 H 03/05/20 06:00: WBC 9.8, RBC 2.51 L, Hgb 7.8 L, Hct 24.5 L, MCV 97.6, MCH 31.1, MCHC 31.8 L, RDW Std Deviation 56.9 H, RDW Coeff of Gunnar 16.2 H, Plt Count 251, MPV 9.9, Immature Gran % (Auto) 0.600, Neut % (Auto) 73.6 H, Lymph % (Auto) 16.8 L, [place] % (Auto) 7.6, Eos % (Auto) 1.2, Baso % (Auto) 0.2, Absolute Neuts (auto) 7.2, Absolute Lymphs (auto) 1.65, Nucleated RBC % 0 03/05/20 06:00: Sodium 142, Potassium 4.0, Chloride 105, Carbon Dioxide 33.0 H, Anion Gap 4 L, BUN 36 H, Creatinine 1.21 H, Estim Creat Clear Calc 34.48, Est GFR (MDRD) Af Amer 55 L, Est GFR (MDRD) Non-Af 46 L, BUN/Creatinine Ratio 29.8 H , Glucose 145 H, Calcium 8.0 L 03/05/20 06:00: PT 14.6, INR 1.2, APTT 25.3 03/05/20 06:00: Hemoglobin A1c 7.0 H 03/05/20 06:39: POC Glucose 122 H Current Medications Acetaminophen (Tylenol) 650 mg PO Q4H PRN PRN PRN Reason: Pain Score 1-10/10 Anastrozole (Arimidex) 1 mg PO DAILY [facility] Last Admin: 03/05/20 08:36 Dose: 1 mg Documented by: Atorvastatin Calcium (Lipitor) 80 mg PO QHS [facility] Last Admin: 03/04/20 21:36 Dose: 80 mg Documented by: Calcium Carbonate (Tums) 500 mg PO DAILY [facility] Last Admin: 03/05/20 08:39 Dose: 500 mg Documented by: Cephalexin (Keflex) 500 mg PO Q12 [facility] Last Admin: 03/05/20 08:37 Dose: 500 mg Documented by: Cholecalciferol (Vitamin D (25mcg)) 1,000 unit PO DAILY [facility] Last Admin: 03/05/20 08:37 Dose: 1,000 unit Documented by: Dextrose (D50w Syringe) 0 gm IV X1 PRN; Protocol PRN Reason: Hypoglycemia Glucagon () 1 mg IM .X1 PRN PRN Reason: Hypoglycemia Sodium Chloride () 1,000 mls @ 75 mls/hr IV .[id number] [facility] Last Admin: 03/05/20 08:34 Dose: 75 mls/hr Documented by: Sodium Chloride () 250 mls @ 15 mls/hr IV .[id number] PRN PRN Reason: Saline Flush Sodium Chloride () 250 mls @ 15 mls/hr IV .[id number] PRN PRN Reason: Additional IVPB Infusion Pantoprazole Sodium 40 mg/ (Sodium Chloride) 110 mls @ 330 mls/hr IV Q12 [facility] Last Admin: 03/05/20 08:45 Dose: 330 mls/hr Documented by: Insulin Glargine (Lantus ([facility])) 35 units SC DAILY [facility] Last Admin: 03/05/20 08:39 Dose: Not Given Documented by: Insulin Human Lispro (Humalog Kwikpen ([facility])) 0 unit SC ACHS [facility]; Protocol Last Admin: 03/05/20 06:44 Dose: Not Given Documented by: Isosorbide Mononitrate (Imdur) 30 mg PO DAILY [facility] Last Admin: 03/05/20 08:38 Dose: 30 mg Documented by: Losartan Potassium (Cozaar) 25 mg PO DAILY [facility] Last Admin: 03/05/20 08:38 Dose: 25 mg Documented by: Melatonin (Melatonin) 6 mg PO QHS [facility] Last Admin: 03/04/20 21:35 Dose: 6 mg Documented by: Metoprolol Succinate (Toprol Xl (Beta Corin)) 50 mg PO DAILY [facility] Last Admin: 03/05/20 08:37 Dose: 50 mg Documented by: Ondansetron HCl (Zofran Odt) 4 mg PO Q6H PRN PRN PRN Reason: NAUSEA/VOMITING Last Admin: 03/05/20 05:16 Dose: 4 mg Documented by: Polyethylene Glycol (Miralax) 17 gm PO BID [facility] Last Admin: 03/04/20 21:36 Dose: Not Given Documented by: Polyethylene Glycol (Clearlax For Bowel Prep) 0 bottle PO DAILY@0800 [facility] Stop: 03/05/20 15:00 Prednisone () 20 mg PO DAILYCM [facility] Last Admin: 03/05/20 08:38 Dose: 20 mg Documented by: Sodium Chloride () 10 - 40 ml IV UD PRN PRN Reason: SALINE FLUSH Last Admin: 03/05/20 05:14 Dose: 20 ml Documented by: Tamsulosin HCl (Flomax) 0.4 mg PO DAILY@1730 [facility] Medical Necessity - Tobacco Use Smoking Status: Never smoker Assessment/Plan All Active Problems (Last Reviewed 05/22/19 @ 15:31 by Tessy Osorio) Osteopenia (Acute) Breast cancer, right (Resolved) Facial droop (Acute) Generalized weakness (Acute) Multiple contusions (Acute) Anemia (Acute) GI bleed (Acute) Acute kidney failure (Acute) Troponin I above reference range (Acute) 80-year-old female with positive fecal occult blood test and anemia 1. Patient has not having good bowel prep results yet. She is still having thick brown stools with no clearing. I will continue MiraLAX and clear liquids today and plan for removing the scope is back to tomorrow morning. I discussed this with the patient's son and all questions were answered. I explained endoscopy in detail to the patient's son. I explained the risks including but not limited to stroke or heart attack with anesthesia, perforation of the GI tract, bleeding, infection. I explained that any of these could necessitate further emergency surgery. The patient's son understands and all questions were answered sufficiently. The patient and her son wish to proceed with procedure. Michele Suazo MD Pager: [facility] [address] [place] [address] [address] [place] [phone] Office:
[2020-03-05] MEDS: Polyethylene Glycol 3350 BOWEL PREP PO (10:05)
[2020-03-05] MEDS: Insulin Lispro 100 UNIT/ML INSULN.PEN SC ×3 (11:57→21:44)
[2020-03-05 12:00] LABS: Bedside Glucose 171 mg/dL (70-110)
--- NOTE | 2020-03-05 12:58 | NURSING ---
Faxed perioperative [facility] management communication form to Dr. Lorenzo office and left message with nurse Jasmin of needing form filled out.
--- NOTE | 2020-03-05 14:11 | PN_ITS ---
Patient Problems: Active and Suspected Problems (Last Reviewed 05/22/19 @ 15:31 by Tessy Osorio) Facial droop (Acute) Generalized weakness (Acute) Multiple contusions (Acute) Anemia (Acute) GI bleed (Acute) Acute kidney failure (Acute) Troponin I above reference range (Acute) Subjective: Patient seen and examined. Was to undergo colonoscopy this morning however patient still with large amount of stool. Colonoscopy rescheduled for tomorrow. Patient denies current complaints. She does states she is having difficulty drinking prep. Denies nausea, vomiting. - Physical Exam Vitals/I&O's: Vital Signs Temp Pulse Resp BP Pulse Ox 97.0 F L 60 16 130/37 H 96 03/05/20 08:07 03/05/20 08:37 03/05/20 08:07 03/05/20 08:07 03/05/20 08:07 Oxygen Flow Rate (L/min) 2 Oxygen Delivery Method Room Air Weight: 212 lb 9.609 oz Body Mass Index (BMI) 35.4 Finger Stick Blood Glucose 230 Intake and Output for Last 24 Hours 03/03/20 03/04/20 03/05/20 23:59 23:59 23:59 Intake Total 3887.50 / 3887.50 4098.75 / 4098.75 1275 / 1275 Output Total 900 / 900 2000 / 2000 900 / 900 Balance 2987.50 / 2987.50 2098.75 / 2098.75 375 / 375 General: Alert, Oriented x3, Cooperative HEENT: Atraumatic, PERRLA, EOMI, Normocephalic Neck: Supple, No JVD, Negative Carotid Bruits Lungs: Clear to auscultation, Normal air movement Cardiovascular: Regular rate, No murmurs Abdomen: Bowel Sounds Present, Soft, Non Tender Extremities: No clubbing, No cyanosis, No edema, Capillary Refill Less than 3 Seconds Skin: No rashes, No breakdown Musculoskeletal: No Tenderness to Palpation of Joints or Extremities Neurological: Cranial nerves II-XII grossly intact, Neuro grossly intact Psych/Mental Status: Normal Affect, Appropriate Microbiology Past 72 Hours 03/02/20 18:10 Urine Catheter - Catheter Urine Culture - Final Citrobacter koseri 03/02/20 21:45 Stool Stool Occult Blood (GLENN) - Final Occult Blood Positive Laboratory Results 03/04/20 16:00: POC Glucose 373 H 03/04/20 21:40: POC Glucose 284 H 03/05/20 06:00: WBC 9.8, RBC 2.51 L, Hgb 7.8 L, Hct 24.5 L, MCV 97.6, MCH 31.1, MCHC 31.8 L, RDW Std Deviation 56.9 H, RDW Coeff of Gunnar 16.2 H, Plt Count 251, MPV 9.9, Immature Gran % (Auto) 0.600, Neut % (Auto) 73.6 H, Lymph % (Auto) 16.8 L, [place] % (Auto) 7.6, Eos % (Auto) 1.2, Baso % (Auto) 0.2, Absolute Neuts (auto) 7.2, Absolute Lymphs (auto) 1.65, Nucleated RBC % 0 03/05/20 06:00: Sodium 142, Potassium 4.0, Chloride 105, Carbon Dioxide 33.0 H, Anion Gap 4 L, BUN 36 H, Creatinine 1.21 H, Estim Creat Clear Calc 34.48, Est GFR (MDRD) Af Amer 55 L, Est GFR (MDRD) Non-Af 46 L, BUN/Creatinine Ratio 29.8 H , Glucose 145 H, Calcium 8.0 L 03/05/20 06:00: PT 14.6, INR 1.2, APTT 25.3 03/05/20 06:00: Hemoglobin A1c 7.0 H 03/05/20 06:39: POC Glucose 122 H 03/05/20 11:52: POC Glucose 171 H Current Medications Acetaminophen (Tylenol) 650 mg PO Q4H PRN PRN PRN Reason: Pain Score 1-10/10 Anastrozole (Arimidex) 1 mg PO DAILY [facility] Last Admin: 03/05/20 08:36 Dose: 1 mg Documented by: Atorvastatin Calcium (Lipitor) 80 mg PO QHS [facility] Last Admin: 03/04/20 21:36 Dose: 80 mg Documented by: Calcium Carbonate (Tums) 500 mg PO DAILY [facility] Last Admin: 03/05/20 08:39 Dose: 500 mg Documented by: Cephalexin (Keflex) 500 mg PO Q12 [facility] Last Admin: 03/05/20 08:37 Dose: 500 mg Documented by: Cholecalciferol (Vitamin D (25mcg)) 1,000 unit PO DAILY [facility] Last Admin: 03/05/20 08:37 Dose: 1,000 unit Documented by: Dextrose (D50w Syringe) 0 gm IV X1 PRN; Protocol PRN Reason: Hypoglycemia Glucagon () 1 mg IM .X1 PRN PRN Reason: Hypoglycemia Sodium Chloride () 1,000 mls @ 75 mls/hr IV .[id number] [facility] Last Admin: 03/05/20 08:34 Dose: 75 mls/hr Documented by: Sodium Chloride () 250 mls @ 15 mls/hr IV .[id number] PRN PRN Reason: Saline Flush Sodium Chloride () 250 mls @ 15 mls/hr IV .[id number] PRN PRN Reason: Additional IVPB Infusion Pantoprazole Sodium 40 mg/ (Sodium Chloride) 110 mls @ 330 mls/hr IV Q12 [facility] Last Admin: 03/05/20 08:45 Dose: 330 mls/hr Documented by: Insulin Glargine (Lantus (Bk)) 35 units SC DAILY [facility] Last Admin: 03/05/20 08:39 Dose: Not Given Documented by: Insulin Human Lispro (Humalog Kwikpen (Bk)) 0 unit SC ACHS [facility]; Protocol Last Admin: 03/05/20 11:57 Dose: 1 units Documented by: Isosorbide Mononitrate (Imdur) 30 mg PO DAILY [facility] Last Admin: 03/05/20 08:38 Dose: 30 mg Documented by: Losartan Potassium (Cozaar) 25 mg PO DAILY [facility] Last Admin: 03/05/20 08:38 Dose: 25 mg Documented by: Melatonin (Melatonin) 6 mg PO QHS [facility] Last Admin: 03/04/20 21:35 Dose: 6 mg Documented by: Metoprolol Succinate (Toprol Xl (Beta Corin)) 50 mg PO DAILY [facility] Last Admin: 03/05/20 08:37 Dose: 50 mg Documented by: Ondansetron HCl (Zofran Odt) 4 mg PO Q6H PRN PRN PRN Reason: NAUSEA/VOMITING Last Admin: 03/05/20 05:16 Dose: 4 mg Documented by: Polyethylene Glycol (Miralax) 17 gm PO BID [facility] Last Admin: 03/05/20 11:56 Dose: Not Given Documented by: Polyethylene Glycol (Clearlax For Bowel Prep) 0 bottle PO DAILY@0800 [facility] Stop: 03/05/20 15:00 Last Admin: 03/05/20 10:05 Dose: 8.3 oz Documented by: Prednisone () 20 mg PO DAILYCM [facility] Last Admin: 03/05/20 08:38 Dose: 20 mg Documented by: Sodium Chloride () 10 - 40 ml IV UD PRN PRN Reason: SALINE FLUSH Last Admin: 03/05/20 05:14 Dose: 20 ml Documented by: Tamsulosin HCl (Flomax) 0.4 mg PO DAILY@1730 [facility] Medical Necessity - Tobacco Use Smoking Status: Never smoker Assessment/Plan All Active Problems (Last Reviewed 05/22/19 @ 15:31 by Tessy Osorio) Osteopenia (Acute) Breast cancer, right (Resolved) Facial droop (Acute) Generalized weakness (Acute) Multiple contusions (Acute) Anemia (Acute) GI bleed (Acute) Acute kidney failure (Acute) Troponin I above reference range (Acute) 1. Metabolic encephalopathy secondary to Citrobacter UTI-CVA ruled out. Improved. Brain CT without acute process. Unable to have MRI. 2. Citrobacter UTI-transition to Keflex to complete course. 3. Acute on chronic normocytic anemia-stool positive for occult blood. Surgery on consult with plan for endoscopy. IV PPI. Trend H&H. 4. Indeterminate troponin-no chest pain. EKG without ST-T changes. Continue to monitor. 5. Recent reported history of DVT-placed on Xarelto recently however ultrasound here negative? Continue to hold anticoagulation secondary to acute anemia. 6. History of CVA-plan to continue aspirin, statin at discharge. 7. History of breast cancer-follows with Dr. Parra. On anastrozole. 8. Type 2 diabetes [id number] with sliding scale insulin. Continue home insulin regimen. 9. Hypertension-stable, continue current regimen. 10. Acute kidney injury on chronic kidney disease stage III-acute kidney injury resolved. Trend BMP. DVT prophylaxis-SCDs, pharmacologic prophylaxis on hold due to #3. This patient was seen by JAYRO Patel under the supervision of Dr. Palacios.
--- NOTE | 2020-03-05 16:01 | CASEMGMT ---
ALEX spoke with patient's son this am. ALEX let him know patient will go to TCU today after her scope. He said he would notify family. A short time later the surgeon said he was not able to do the scope today and plans on doing it tomorrow. He called patient's son and let him know. ALEX called Sunitha in TCU and let her know. Plan: [facility] [place] tomorrow. Marybel VELASCO
[2020-03-05] MEDS: Sodium Ferric Gluconat 250 MG in 0.9% Normal Saline 250 ML 135 MG IV (16:33)
[2020-03-05] MEDS: Tamsulosin HCl 0.4 MG Capsule PO (16:49)
[2020-03-05 17:00] LABS: Bedside Glucose 355 mg/dL (70-110)
[2020-03-05] MEDS: Polyethylene Glycol 3350 17 GM PACKET PO (21:44)
[2020-03-05] MEDS: Atorvastatin Calcium 80 MG Tablet PO (21:44)
[2020-03-05] MEDS: MELATONIN 3 MG TABLET 6 MG PO (21:44)
[2020-03-05 23:31] LABS: Bedside Glucose 244 mg/dL (70-110)
[2020-03-06] VITALS (13 sets, daily range): BP systolic 98–130; BP diastolic 34–67; PULSE 73–105; RESP 16–18; TEMP 36.1–37.1; O2SAT 94–100
--- NOTE | 2020-03-06 05:55 | EKG12_ITS ---
Test Reason : AM EKG Blood Pressure : / mmHG Vent. Rate : 084 BPM Atrial Rate : 065 BPM P-R Int : 000 ms QRS Dur : 120 ms QT Int : 406 ms P-R-T Axes : 000 -35 252 degrees QTc Int : 479 ms Suspect unspecified pacemaker failure Atrial fibrillation with occasional ventricular-paced complexes Left axis deviation Inferior infarct , age undetermined ST & T wave abnormality, consider anterolateral ischemia Abnormal ECG When compared with ECG of 05-MAR-2020 05:28, MANUAL COMPARISON REQUIRED, DATA IS UNCONFIRMED Confirmed by KRAIG HERNANDEZ, ZITA ([id number]), commercial production editor VANI PATEL ([id number]) on 03/09/2020 11:10:41 AM Referred By: OLE Confirmed By:ZITA CORNELL MD
[2020-03-06] MEDS: Sodium Ferric Gluconat 250 MG in 0.9% Normal Saline 250 ML 135 MG IV (06:11)
[2020-03-06 07:45] LABS: Bedside Glucose 154 mg/dL (70-110)
[2020-03-06] MEDS: 0.9% Normal Saline 1,000 ML 75 ML IV (08:24)
--- NOTE | 2020-03-06 09:30 | EGD_PTH ---
PATIENT: REDDY WHITT LOC: [facility] U#:[id number] AGE/SX: 80/F ROOM: [facility] RE03/02/[address]: Dr. Tip Palacios DO : 1940 BED: 1 DIS: 03/06/2020 SPEC #: [id number] RECD: 03/06/20 11:24 STATUS: JUSTIN REFranco #: [id number] HANANE: 03/06/20 09:[address]: Michele Suazo DEPT: SURGICAL PATHOLOGY RECD BY: Naeem Ansari ENTERED: 03/06/20 11:55 SP TYPE: EGD BIOPSY OT DR: DO Dr. Jordan Delatorre MD Andrew Naumoff, MD Tissues: A - Gastric mucous membrane B - Esophageal mucous membrane Procedures: Special Stain Group I Surgery Specimen Level IV GMS Stain (control) HEADER OPERATION: Colonoscopy, EGD ([facility]) PRE-OP DIAGNOSIS: Positive fecal occult blood, anemia TISSUE SUBMITTED: A - Antrum biopsy for histo and H. pylori, B - Distal esophagus, rule out Thalia MICROSCOPIC DIAGNOSIS A. Antrum, biopsy: Mild gastritis. See microscopic description and comment. B. Distal esophagus, biopsy: Fragments of squamous epithelium with focal minimal chronic inflammation. Special stain for fungi is positive for organisms (yeast and pseudohyphae) consistent with Thalia species; matched control is appropriate. SJ:domingo 03/09/20 COMMENT A. The results of immunohistochemistry for Helicobacter pylori will be reported separately ([id number]). MICROSCOPIC DESCRIPTION Slides are reviewed. A. The specimen shows fragments of gastric mucosa with chronic inflammatory cell infiltrates in the lamina propria consisting of lymphocytes and plasma cells, consistent with mild chronic gastritis. GROSS DESCRIPTION A - Received in fixative is one container labeled with the patient's name and designated antrum biopsy. The specimen consists of two irregular fragments of light delong soft tissue that in aggregate measure 0.4 x 0.3 x 0.1 cm. The specimen is totally submitted in one cassette. B - Received in fixative is one container labeled with the patient's name and designated distal esophagus biopsy. The specimen consists of multiple irregular fragments of light delong soft tissue that in aggregate measure 1.2 x 0.5 x 0.1 cm. The specimen is totally submitted in one cassette. / CHAN:domingo 03/06/20 TC:3 CPT: 26159 x2, 83127
--- NOTE | 2020-03-06 09:30 | IMM_PTH ---
PATIENT: REDDY WHITT LOC: [facility] U#:[id number] AGE/SX: 80/F ROOM: [facility] RE03/02/[address]: Dr. Tip Palacios DO : 1940 BED: 1 DIS: 03/06/2020 SPEC #: [id number] RECD: 03/06/20 13:12 STATUS: JUSTIN REQ #: [id number] HANANE: 03/06/20 09:[address]: Michele Suazo DEPT: IMMUNOHISTOCHEMISTRY RECD BY: Chen Díaz ENTERED: 03/06/20 13:13 SP TYPE: IMMUNO OTHR DR: DO Dr. Jordan Delatorre MD Andrew Naumoff, MD Tissues: A - Stomach, NOS Procedures: H Pylori (initial) PHYSICIAN & INSTITUTION [place] [address] SPECIMEN INFORMATION: Tissue Source: A - Antrum biopsy Clinical Info: Positive fecal occult blood, anemia Specimen Number: [id number] CPT code: 01182 METHODOLOGY: Deparaffinized sections of prefer/formalin-fixed tissue or PAP/DQ stained slides are incubated with monoclonal/polyclonal antibodies/oligonucleotide probes. Localization is made via biotin free immunoperoxidase method. Appropriate controls are performed and reacted as expected. Results on target cell population are indicated in the following table: RESULTS: ANTIBODY / CLONE RESULT Block A H Pylori (polyclonal) negative These tests were developed and their performance characteristics determined by [facility]. They may not have been cleared or approved by the U.S. Food and Drug Administration. The FDA has determined that such clearance or approval is not necessary. INTERPRETATION: A. Antrum biopsy: Negative for Helicobacter pylori organisms. SJ:domingo 03/09/20
--- NOTE | 2020-03-06 10:37 | PN_ITS ---
Progress Note EGD and colonoscopy were performed. Colonoscopy was normal. EGD revealed candidiasis throughout the esophagus. The stomach contained several ulcers. She also had gastritis approximating the ulcers which had a slow oozing. I recommended the patient be placed on systemic Diflucan for 2 weeks and Carafate as well as a twice daily PPI. If the anemia does not resolve I will repeat scope to ensure resolution of ulcers at 6 weeks. Michele Suazo MD Pager: [facility] [address] [place] [address] [address] [place] [address] Office: [facility] Vital Signs/Narrative: Vital Signs Temp Pulse Resp BP Pulse Ox 03/06/20 08:30 98.6 F 105 H 16 114/58 L 95 03/06/20 07:36 96 03/06/20 07:22 84
--- NOTE | 2020-03-06 10:42 | OP.EGD_ITS ---
Patient Name: Nerissa Jones Procedure Date: 03/06/2020 9:48 AM Date of : 1940 Age: 80 Procedure: Upper GI endoscopy Indications: Iron deficiency anemia, Occult blood in stool Providers: Michele Suazo MD Medicines: Monitored Anesthesia Care Patient Profile: This is a 80 year old female. Refer to note in patient chart for documentation of history and physical. Complications: No immediate complications. Estimated blood loss: Minimal. Procedure: Pre-Anesthesia Assessment: - Prior to the procedure, a History and Physical was performed, and patient medications and allergies were reviewed. The patient's tolerance of previous anesthesia was also reviewed. The risks and benefits of the procedure and the sedation options and risks were discussed with the patient. All questions were answered, and informed consent was obtained. Prior Anticoagulants: The patient has taken Plavix (clopidogrel), last dose was 3 days prior to procedure. After reviewing the risks and benefits, the patient was deemed in satisfactory condition to undergo the procedure. After obtaining informed consent, the endoscope was passed under direct vision. Throughout the procedure, the patient's blood pressure, pulse, and oxygen saturations were monitored continuously. The Endoscope was introduced through the mouth, and advanced to the second part of duodenum. The upper GI endoscopy was accomplished without difficulty. The patient tolerated the procedure well. Scope In: 10:05:30 AM Scope Out: 10:10:48 AM Total Procedure Duration Time 0 hours 5 minutes 18 seconds Findings: Diffuse, white plaques were found in the entire esophagus. Biopsies were taken with a cold forceps for histology. Many non-bleeding cratered gastric ulcers with pigmented material were found in the stomach. Biopsies were taken with a cold forceps in the gastric antrum for Helicobacter pylori testing. The examined duodenum was normal. Impression: - Esophageal plaques were found, suspicious for candidiasis. Biopsied. - Non-bleeding gastric ulcers with pigmented material. - Normal examined duodenum. - Biopsies were taken with a cold forceps for Helicobacter pylori testing. Recommendation: - Await pathology results. - [facility]. - Resume previous diet. - Use a proton pump inhibitor PO BID. - Use sucralfate tablets 1 gram PO QID. - Recommend anti-fungal agent for 2 weeks. - Continue present medications. Procedure Code(s): --- Professional --- 06858, Esophagogastroduodenoscopy, flexible, transoral; with biopsy, single or multiple Diagnosis Code(s): --- Professional --- K22.9, Disease of esophagus, unspecified K25.9, Gastric ulcer, unspecified as acute or chronic, without hemorrhage or perforation D50.9, Iron deficiency anemia, unspecified R19.5, Other fecal abnormalities CPT copyright 2017 [employer]. All rights reserved. The codes documented in this report are preliminary and upon machine stacker review may be revised to meet current compliance requirements. Michele Suazo MD 03/06/2020 10:42:13 AM This report has been signed electronically. Number of Addenda: 0 Note Initiated On: 03/06/2020 9:48 AM
--- NOTE | 2020-03-06 10:42 | OP.CCLET_ITS ---
03/06/2020 Ab Escobar Md Re : Upper GI endoscopy procedure for Nerissa Jones Dear Shawn This procedure was performed on Friday, March 06, 2020. My impressions and recommendations are as follows: Impressions : - Esophageal plaques were found, suspicious for candidiasis. Biopsied. - Non-bleeding gastric ulcers with pigmented material. - Normal examined duodenum. - Biopsies were taken with a cold forceps for Helicobacter pylori testing. Recommendations : - Await pathology results. - [facility]. - Resume previous diet. - Use a proton pump inhibitor PO BID. - Use sucralfate tablets 1 gram PO QID. - Recommend anti-fungal agent for 2 weeks. - Continue present medications. My findings are described in the full procedure note, which is enclosed. If I can be of further assistance, please feel free to contact me at Doctor phone number(s): , Work: . Sincerely, Michele Suazo MD 03/06/2020 10:42:13 AM This report has been signed electronically.
--- NOTE | 2020-03-06 10:44 | OP.CCLET_ITS ---
03/06/2020 Ab Escobar Md Re : Colonoscopy procedure for Nerissa Jones Dear Shawn This procedure was performed on Friday, March 06, 2020. My impressions and recommendations are as follows: Impressions : - The entire examined colon is normal on direct and retroflexion views. - No specimens collected. Recommendations : - [facility]. - Resume previous diet. - Continue present medications. - No repeat colonoscopy due to current age (66 years or older). My findings are described in the full procedure note, which is enclosed. If I can be of further assistance, please feel free to contact me at Doctor phone number(s): , Work: . Sincerely, Michele Suazo MD 03/06/2020 10:44:00 AM This report has been signed electronically.
--- NOTE | 2020-03-06 10:44 | OP.COLON_ITS ---
Patient Name: Nerissa Jones Procedure Date: 03/06/2020 10:11 AM Date of : 1940 Age: 80 Procedure: Colonoscopy Indications: Gastrointestinal occult blood loss Providers: Michele Suazo MD Medicines: Monitored Anesthesia Care Patient Profile: This is a 80 year old female. Refer to note in patient chart for documentation of history and physical. Last Colonoscopy: more than 10 years ago. Complications: No immediate complications. Procedure: Pre-Anesthesia Assessment: - Prior to the procedure, a History and Physical was performed, and patient medications and allergies were reviewed. The patient's tolerance of previous anesthesia was also reviewed. The risks and benefits of the procedure and the sedation options and risks were discussed with the patient. All questions were answered, and informed consent was obtained. Prior Anticoagulants: The patient has taken Plavix (clopidogrel), last dose was 3 days prior to procedure. After reviewing the risks and benefits, the patient was deemed in satisfactory condition to undergo the procedure. After I obtained informed consent, the scope was passed under direct vision. Throughout the procedure, the patient's blood pressure, pulse, and oxygen saturations were monitored continuously. The pediatric colonoscope was introduced through the anus and advanced to the cecum, identified by appendiceal orifice and ileocecal valve. The colonoscopy was performed without difficulty. The patient tolerated the procedure well. The quality of the bowel preparation was good. Scope In: 10:13:48 AM Scope Withdrawal Time 0 hours 6 minutes 5 seconds Scope Out: 10:33:06 AM Total Procedure Duration Time 0 hours 19 minutes 18 seconds Findings: The entire examined colon appeared normal on direct and retroflexion views. Impression: - The entire examined colon is normal on direct and retroflexion views. - No specimens collected. Recommendation: - [facility] to [facility]. - Resume previous diet. - Continue present medications. - No repeat colonoscopy due to current age (66 years or older). Procedure Code(s): --- Professional --- 48808, Colonoscopy, flexible; diagnostic, including collection of specimen(s) by brushing or washing, when performed (separate procedure) Diagnosis Code(s): --- Professional --- R19.5, Other fecal abnormalities CPT copyright 2017 [employer]. All rights reserved. The codes documented in this report are preliminary and upon airline reservationist review may be revised to meet current compliance requirements. Michele Suazo MD 03/06/2020 10:44:00 AM This report has been signed electronically. Number of Addenda: 0 Note Initiated On: 03/06/2020 10:11 AM
--- NOTE | 2020-03-06 11:02 | PCM.EXTCARCO ---
- Diet 03/06/20 00:01 Diet: Regular diet - Routine Orders/Code Status Enema Type: Fleetz Enema Frequency: Daily PRN Suppository Type: Dulcolax 10mg Suppository Frequency: Daily PRN Routine Lab Work: CBC, BMP, - - in 3 days and then Q week - Wound(s) Left arm Wound Type: Skin Tear Dressing Change: Adaptic left achilles Wound Type: nonhealing wound Dressing Change: AntiMicrobial (Aquacel AG, etc) - Suggestions for Active Care Change Position every (hours): 2 Times a day to sit in chair: 3 - Therapies Physical Therapy: Eval and Treat Occupational Therapy: Eval and Treat - Problem/Diagnosis (1) History of right breast cancer Status: Chronic Current Visit: No (2) Generalized weakness Status: Acute Current Visit: Yes (3) History of stroke Status: Chronic Current Visit: No (4) Diabetes Status: Chronic Current Visit: No (5) History of cardiac defibrillator placement Status: Chronic Current Visit: No (6) Anemia Status: Acute Current Visit: Yes (7) GI bleed Status: Acute Current Visit: Yes (8) Acute kidney failure Status: Acute Current Visit: Yes (9) Troponin I above reference range Status: Acute Current Visit: Yes (10) UTI (urinary tract infection) Status: Acute Current Visit: Yes - Allergies/Procedures Done in Hospital Allergies/Adverse Reactions: Allergies Iodinated Contrast Media [DYEE] Allergy (Verified 05/22/19 15:32) Anaphylaxis hydrocodone bitartrate [From Vicodin] Adverse Reaction (Verified 05/22/19 15:32) Nausea/Vom/Diarrhea Procedures: Colonoscopy, EGD - Type of Care/Length of Stay Estimated LOS: Convalescent Care Less Than 30 days Type of Care Needed: Skilled Rehab Potential: Fair Prognosis: Fair - Additional Orders/Day of Discharge H&P will serve as current which was dated: 03/02/20 Day of Discharge: 03/06/20 - Dietary and Speech Recommendations Dietitian Recommendations/Changes: Will change diet to CHO Controlled/Cardiac diet. - Follow Up Care Primary Care Physician: Hope Bond, [NON-STAFF] - Please follow up with your Primary Care Physician in: 1 Week
--- NOTE | 2020-03-06 11:08 | DS.PCM_ITS ---
Discharge Date and Diagnosis Date of Admission: 03/02/20 Date of Discharge: 03/06/20 - Primary Discharge Diagnosis Acute Problems: Active Problems (Last Reviewed 05/22/19 @ 15:31 by Tessy Osorio) 1. Metabolic encephalopathy secondary to Citrobacter UTI 2. Citrobacter UTI 3. Acute on chronic normocytic anemia 4. Indeterminate troponin, ACS ruled out 5. Recent reported history of DVT 6. History of CVA 7. History of breast cancer 8. Type 2 diabetes mellitus 9. Hypertension 10. Acute kidney injury on chronic kidney disease stage III - Secondary Discharge Diagnosis Chronic Problems: Chronic Problems (Last Reviewed 05/22/19 @ 15:31 by Tessy Osorio) History of right breast cancer (Chronic) History of stroke (Chronic) Diabetes (Chronic) History of pacemaker (Chronic) History of cardiac defibrillator placement (Chronic) Hospital Course and Treatment Imaging Results: Diagnostic Data Chest X-Ray 03/02/20 18:17 IMPRESSION: Degenerative changes, as described above. No demonstrated acute cardiopulmonary process. Electronically Signed: Randy Rosa MD at 18:51 EDT , Service support , Humerus X-Ray 03/02/20 18:48 IMPRESSION: Degenerative changes of the left glenohumeral and acromioclavicular articulations. There is no evidence of left humeral fracture or dislocation. Electronically Signed: Romain Heredia MD at 20:27 EDT , Service support , Elbow X-Ray 03/02/20 19:35 IMPRESSION: No evidence of fracture or dislocation. Electronically Signed: Romain Heredia MD at 20:28 EDT , Service support , Brain CT 03/03/20 17:15 IMPRESSION: Chronic involutional changes of the brain. There is no intracranial hemorrhage or evidence of acute infarct. Findings are stable in the interval. Electronically Signed: Romain Heredia MD at 17:42 EDT , Service support , Consultations 03/03/20 00:12 Consult: Onc/Wound/neurosurgeon Routine Comment: Reason for Consult:: Left arm, left ankle Dr. Suazo- Surgery Operations: None Procedures: Colonoscopy, EGD Summary of Care Provided: The patient is a 80 year old F admitted 03/02/2020 due to generalized weakness. 1. Metabolic encephalopathy secondary to Citrobacter UTI-CVA ruled out. Improved. Brain CT without acute process. Unable to have MRI due to presence of defibrillator placement. 2. Citrobacter UTI-transition to Keflex to complete course. 3. Acute on chronic normocytic anemia-stool positive for occult blood. Colonoscopy unremarkable. EGD demonstrates esophageal plaques which are suspicious for candidiasis. Nonbleeding gastric ulcers. Biopsies taken. Continue PPI twice daily. Carafate 1 g p.o. 4 times daily. Also started on Diflucan 200 mg daily for 2 weeks. CBC stable. 4. Indeterminate troponin-no chest pain. EKG without ST-T changes. 5. Recent reported history of DVT-placed on Xarelto recently however ultrasound here negative? Xarelto discontinued due to anemia and no evidence of active DVT. 6. History of CVA-plan to continue aspirin, statin at discharge. 7. History of breast cancer-follows with Dr. Michelle On anastrozole. 8. Type 2 diabetes mellitus-continue home insulin regimen. 9. Hypertension-stable, continue current regimen. 10. Acute kidney injury on chronic kidney disease stage III-acute kidney injury resolved. HCTZ discontinued at discharge. Lasix reduced to 40 mg daily. General: Alert, Oriented x3, Cooperative HEENT: Atraumatic, PERRLA, EOMI, Normocephalic Neck: Supple, No JVD, Negative Carotid Bruits Lungs: Clear to auscultation, Normal air movement Cardiovascular: Regular rate, No murmurs Abdomen: Bowel Sounds Present, Soft, Non Tender Extremities: No clubbing, No cyanosis, No edema, Capillary Refill Less than 3 Seconds Skin: No rashes, No breakdown Musculoskeletal: No Tenderness to Palpation of Joints or Extremities Neurological: Cranial nerves II-XII grossly intact, Neuro grossly intact Psych/Mental Status: Normal Affect, Appropriate Patient seen and examined prior to discharge. Physical assessment as noted above. Patient is stable for discharge with follow up recommendations as noted above. This patient was seen by JAYRO Patel under the supervision of Dr. Palacios. - Physical Exam Vitals/I&O's: Vital Signs Temp Pulse Resp BP Pulse Ox 96.9 F L 89 16 126/66 H 98 03/06/20 10:42 03/06/20 11:00 03/06/20 11:00 03/06/20 11:00 03/06/20 11:00 Oxygen Flow Rate (L/min) 2 Oxygen Delivery Method Room Air Weight: 212 lb 9.468 oz Body Mass Index (BMI) 35.4 Finger Stick Blood Glucose 230 Intake and Output for Last 24 Hours 03/04/20 03/05/20 03/06/20 23:59 23:59 23:59 Intake Total 4098.75 / 4098.75 3885 / 3885 762.5 / 762.5 Output Total 1999 / 1999 2100 / 2100 200 / 200 Balance 2098.75 / 2098.75 1785 / 1785 562.5 / 562.5 Microbiology Past 72 Hours 03/02/20 18:10 Urine Catheter - Catheter Urine Culture - Final Citrobacter koseri Laboratory Results 03/05/20 11:52: POC Glucose 171 H 03/05/20 16:47: POC Glucose 355 H 03/05/20 21:41: POC Glucose 244 H 03/06/20 06:32: POC Glucose 154 H Current Medications Acetaminophen (Tylenol) 650 mg PO Q4H PRN PRN PRN Reason: Pain Score 1-10/10 Anastrozole (Arimidex) 1 mg PO DAILY [facility] Last Admin: 03/05/20 08:36 Dose: 1 mg Documented by: Atorvastatin Calcium (Lipitor) 80 mg PO QHS [facility] Last Admin: 03/05/20 21:44 Dose: 80 mg Documented by: Calcium Carbonate (Tums) 500 mg PO DAILY [facility] Last Admin: 03/05/20 08:39 Dose: 500 mg Documented by: Cephalexin (Keflex) 500 mg PO Q12 [facility] Last Admin: 03/05/20 21:44 Dose: 500 mg Documented by: Cholecalciferol (Vitamin D (25mcg)) 1,000 unit PO DAILY [facility] Last Admin: 03/05/20 08:37 Dose: 1,000 unit Documented by: Dextrose (D50w Syringe) 0 gm IV X1 PRN; Protocol PRN Reason: Hypoglycemia Ferrous Sulfate (Ferrous Sulfate) 325 mg PO 1200,1700 [facility] Fluconazole (Diflucan) 200 mg PO DAILY [facility]1983 Stop: 03/21/20 10:01 Glucagon () 1 mg IM .X1 PRN PRN Reason: Hypoglycemia Sodium Chloride () 1,000 mls @ 75 mls/hr IV .[id number] [facility] Last Admin: 03/06/20 08:24 Dose: 75 mls/hr Documented by: Sodium Chloride () 250 mls @ 15 mls/hr IV .[id number] PRN PRN Reason: Saline Flush Sodium Chloride () 250 mls @ 15 mls/hr IV .[id number] PRN PRN Reason: Additional IVPB Infusion Insulin Glargine (Lantus ([facility])) 35 units SC DAILY [facility] Last Admin: 03/05/20 08:39 Dose: Not Given Documented by: Insulin Human Lispro (Humalog Kwikpen ([facility])) 0 unit SC ACHS [facility]; Protocol Last Admin: 03/06/20 06:48 Dose: Not Given Documented by: Isosorbide Mononitrate (Imdur) 30 mg PO DAILY [facility] Last Admin: 03/05/20 08:38 Dose: 30 mg Documented by: Losartan Potassium (Cozaar) 25 mg PO DAILY [facility] Last Admin: 03/05/20 08:38 Dose: 25 mg Documented by: Melatonin (Melatonin) 6 mg PO QHS [facility] Last Admin: 03/05/20 21:44 Dose: 6 mg Documented by: Metoprolol Succinate (Toprol Xl (Beta Corin)) 50 mg PO DAILY [facility] Last Admin: 03/05/20 08:37 Dose: 50 mg Documented by: Ondansetron HCl (Zofran Odt) 4 mg PO Q6H PRN PRN PRN Reason: NAUSEA/VOMITING Last Admin: 03/05/20 05:16 Dose: 4 mg Documented by: Pantoprazole Sodium (Protonix) 40 mg PO BID [facility] Polyethylene Glycol (Miralax) 17 gm PO BID [facility] Last Admin: 03/05/20 21:44 Dose: 17 gm Documented by: [facility] () [facility] Last Admin: 03/05/20 08:38 Dose: 20 mg Documented by: Sodium Chloride () 10 - 40 ml IV UD PRN PRN Reason: SALINE FLUSH Last Admin: 03/05/20 16:33 Dose: 10 ml Documented by: Sucralfate (Carafate) 1 gm PO 1HR_ACHS DANIELLE Tamsulosin HCl (Flomax) 0.4 mg PO DAILY@1730 DANIELLE Last Admin: 03/05/20 16:49 Dose: 0.4 mg Documented by: Home Medications: Medications to take at Discharge Acetaminophen [Tylenol] 650 mg PO Q4H PRN PRN 03/02/20 Anastrozole [Arimidex] 1 mg PO DAILY 03/02/20 Aspirin E.C. [Ecotrin] 81 mg PO DAILY@0800 03/02/20 Atorvastatin Calcium [Lipitor] 80 mg PO QHS 03/02/20 Calcium Carbonate 600 mg PO DAILY 03/02/20 Cholecalciferol (VIT D3) [Vitamin D3] 1,000 unit PO DAILY 03/02/20 Insulin Aspart [Novolog Flexpen] 20 units SUBCUT X1 03/02/20 Insulin Aspart [Novolog Flexpen] 24 units SUBCUT X1 03/02/20 Insulin Detemir [Levemir Flextouch] 35 unit SQ DAILY 03/02/20 Insulin Lispro [Humalog KwikPen] 5 unit SQ TID 03/02/20 Insulin Lispro [Humalog KwikPen] See Protocol SQ ACHS 03/02/20 Isosorbide Mononitrate [Isosorbide Mononitrate ER] 30 mg PO DAILY 03/02/20 Losartan Potassium [Cozaar] 25 mg PO DAILY 03/02/20 Magnesium Hydroxide [Milk of Magnesia] 30 ml PO DAILY PRN PRN 03/02/20 Melatonin 6 mg PO QHS 03/02/20 Metoprolol Succinate [Toprol Xl] 50 mg PO DAILY 03/02/20 Ondansetron HCl [Zofran] 4 mg PO Q6H PRN PRN 03/02/20 Polyethylene Glycol 3350 17 gm PO BID 03/02/20 Prednisone 20 mg PO DAILY 03/02/20 Promethazine HCl 25 mg PO DAILY PRN PRN 03/02/20 Sodium Phosphate,[place]-Dibasic [Fleet Enema] 1 bottle RI DAILY PRN PRN 03/02/20 Tramadol HCl [Ultram] 50 mg PO Q6H PRN PRN 03/02/20 Cephalexin [Keflex] 500 mg PO Q12 cap 03/06/20 Ferrous Sulfate 325 mg PO 1200,1700 tab 03/06/20 Fluconazole [Diflucan] 200 mg PO DAILY tab 03/06/20 Furosemide [Lasix] 40 mg PO DAILY #0 03/06/20 Pantoprazole Sodium [Protonix] 40 mg PO BID tab 03/06/20 Sucralfate [Carafate] 1 gm PO 1HR_ACHS 14 Days tab 03/06/20 Tamsulosin HCl [Flomax] 0.4 mg PO DAILY@1730 cap 03/06/20 Primary Care Physician: Hope Bond DO [NON-STAFF] - Please follow up with your Primary Care Physician in: 1 Week Disposition: Care Home facility Minutes spent on discharge:: 35 Patient Condition:: Stable Medical Necessity - Tobacco Use Smoking Status: Never smoker Meaningful Use Info Meaningful Use Diagnoses (Choose all that apply): None applicable
--- NOTE | 2020-03-06 12:33 | CASEMGMT ---
Social Work Pt ready for discharge today. Orders faxed to TCU and Sunitha in TCU updated. DIANNA Yusuf placed call to pt son and informed. SW met with pt and informed of d/c plan and pt is agreeable. RN notified. EFRAIN Lee
[2020-03-06 13:35] LABS: Bedside Glucose 130 mg/dL (70-110)
--- NOTE | 2020-03-06 14:11 | PHA.DC.MR ---
Pharmacy Service has performed discharge medication reconciliation for this patient upon transfer to [facility]. The patient's discharge medication list was reviewed for discrepancies and discrepancies were resolved. Home Medications Acetaminophen [Tylenol] 650 mg PO Q4H PRN PRN 03/02/20 Anastrozole [Arimidex] 1 mg PO DAILY 03/02/20 Aspirin E.C. [Ecotrin] 81 mg PO DAILY@0800 03/02/20 Atorvastatin Calcium [Lipitor] 80 mg PO QHS 03/02/20 Calcium Carbonate 600 mg PO DAILY 03/02/20 Cholecalciferol (VIT D3) [Vitamin D3] 1,000 unit PO DAILY 03/02/20 Insulin Detemir [Levemir Flextouch] 35 unit SQ DAILY 03/02/20 Insulin Lispro [Humalog KwikPen] 5 unit SQ TID 03/02/20 Insulin Lispro [Humalog KwikPen] See Protocol SQ ACHS 03/02/20 Isosorbide Mononitrate [Isosorbide Mononitrate ER] 30 mg PO DAILY 03/02/20 Losartan Potassium [Cozaar] 25 mg PO DAILY 03/02/20 Magnesium Hydroxide [Milk of Magnesia] 30 ml PO DAILY PRN PRN 03/02/20 Melatonin 6 mg PO QHS 03/02/20 Metoprolol Succinate [Toprol Xl] 50 mg PO DAILY 03/02/20 Ondansetron HCl [Zofran] 4 mg PO Q6H PRN PRN 03/02/20 Polyethylene Glycol 3350 17 gm PO BID 03/02/20 Prednisone 20 mg PO DAILY 03/02/20 Promethazine HCl 25 mg PO DAILY PRN PRN 03/02/20 Sodium Phosphate,[place]-Dibasic [Fleet Enema] 1 bottle AR DAILY PRN PRN 03/02/20 Tramadol HCl [Ultram] 50 mg PO Q6H PRN PRN 03/02/20 Cephalexin [Keflex] 500 mg PO Q12 cap 03/06/20 Ferrous Sulfate 325 mg PO 1200,1700 tab 03/06/20 Fluconazole [Diflucan] 200 mg PO DAILY tab 03/06/20 Furosemide [Lasix] 40 mg PO DAILY #0 03/06/20 Pantoprazole Sodium [Protonix] 40 mg PO BID tab 03/06/20 Sucralfate [Carafate] 1 gm PO 1HR_ACHS 14 Days tab 03/06/20 Tamsulosin HCl [Flomax] 0.4 mg PO DAILY@1730 cap 03/06/20
[2020-03-06] MEDS: Losartan Potassium 25 MG Tablet PO (14:21)
[2020-03-06] MEDS: Cephalexin 500 MG Capsule PO (14:21)
[2020-03-06] MEDS: Anastrozole 1 MG Tablet PO (14:21)
[2020-03-06] MEDS: Metoprolol(XL)Succ 50 MG Tablet PO (14:21)
[2020-03-06] MEDS: Calcium Carbonate 500 MG Tablet PO (14:22)
[2020-03-06] MEDS: Isosorbide Mononitrate 30 MG Tablet PO (14:22)
[2020-03-06] MEDS: predniSONE 20 MG Tablet PO (14:22)
[2020-03-06] MEDS: Ferrous Sulfate 325 MG Tablet PO (14:29)
--- NOTE | 2020-03-06 15:18 | NURSING ---
report called to TCU
== END 2020-03-06 15:24 | disposition skilled nursing facility (03) | DRG 689 ==
LOC: ED 17:38 → PCU 22:47
PROVIDERS: Anesthesiology; Physician Assistant; Surgery; Admitting Provider Family Medicine; Emergency Provider Student in an Organized Health Care Education/Training Program; PCP Family Medicine; Visit Provider Internal Medicine
PROC: 0DJD8ZZ Inspection of Lower Intestinal Tract, Via Natural or Artificial Opening Endoscopic (ICD-10-PCS; CPT 45378; principal; 2020-03-06 09:25)
DX: N39.0 Urinary tract infection, site not specified (principal); G93.41 Metabolic encephalopathy; K25.4 Chronic or unspecified gastric ulcer with hemorrhage; N17.9 Acute kidney failure, unspecified; I69.354 Hemiplegia and hemiparesis following cerebral infarction affecting left non-dominant side; B37.81 Candidal esophagitis; N18.3 Chronic kidney disease, stage 3 (moderate); I12.9 Hypertensive chronic kidney disease with stage 1 through stage 4 chronic kidney disease, or unspecified chronic kidney disease; D50.9 Iron deficiency anemia, unspecified; B96.89 Other specified bacterial agents as the cause of diseases classified elsewhere; K22.9 Disease of esophagus, unspecified; E11.22 Type 2 diabetes mellitus with diabetic chronic kidney disease; R19.5 Other fecal abnormalities; I25.10 Atherosclerotic heart disease of native coronary artery without angina pectoris; K59.00 Constipation, unspecified; K29.70 Gastritis, unspecified, without bleeding; Z86.718 Personal history of other venous thrombosis and embolism; Z85.3 Personal history of malignant neoplasm of breast; Z95.810 Presence of automatic (implantable) cardiac defibrillator; Z91.041 Radiographic dye allergy status; Z90.49 Acquired absence of other specified parts of digestive tract; Z79.82 Long term (current) use of aspirin; Z79.02 Long term (current) use of antithrombotics/antiplatelets; Z79.01 Long term (current) use of anticoagulants; Z79.4 Long term (current) use of insulin; Z79.811 Long term (current) use of aromatase inhibitors; R29.810 Facial weakness
CPT/HCPCS: 51702; 70450; 71045; 73060; 73080; 80048; 80061; 81001; 82274; 82962; 83036; 84484; 85025; 85610; 85730; 86850; 86900; 86901; 87077; 87086; 87088; 87186; 87635; 88305; 88312; 88342; 93005; 93970; 94762; 95819; 97110; 97162; 97166; 97530; 97535; 97802; 99285; G2023; J7030; J7050; A4216; J2405; J2916; U0003

== ENCOUNTER 2020-03-06 15:30 | Inpatient (IN) | payer MEDICARE, MEDICAID, SELFPAY ==
[2020-03-05 03:50] VITALS: BMI 35.4
[2020-03-06 15:50] VITALS: BP 95/34; PULSE 80; PULSE 82; RESP 16; TEMP 36.5; O2SAT 94; BMI 34.9
[2020-03-06 17:46] LABS: Bedside Glucose 267 mg/dL (70-110)
[2020-03-06] MEDS: Pantoprazole Sodium 40 MG Tablet PO (18:10)
[2020-03-06] MEDS: Tamsulosin HCl 0.4 MG Capsule PO (18:10)
[2020-03-06] MEDS: Polyethylene Glycol 3350 17 GM PACKET PO (18:11)
[2020-03-06] MEDS: Ferrous Sulfate 325 MG Tablet PO (18:11)
[2020-03-06 18:42] VITALS: BP 97/40; PULSE 82
--- NOTE | 2020-03-06 18:44 | NURSING ---
IV attempted multiple times unsuccessfully, Dr. Kaur notified. stated to d/c IV fluids and encourage fluids and re-check BP at bedtime.
[2020-03-06] MEDS: Cephalexin 500 MG Capsule PO (18:46)
--- NOTE | 2020-03-06 19:55 | HP.PCM_ITS ---
Problem List (1) Debility Status: Acute (2) Candidiasis Status: Acute (3) Upper gastrointestinal bleed Status: Acute (4) Guaiac positive stools Status: Acute (5) Gastric cardia ulcer Status: Acute (6) Coronary artery disease Status: Chronic (7) Stroke Status: Chronic (8) Acute kidney injury Status: Acute (9) Breast cancer Status: Chronic (10) Facial droop Status: Acute (11) Multiple contusions Status: Acute (12) Diabetes Status: Chronic (13) Anemia Status: Acute Qualifiers: (14) UTI (urinary tract infection) Status: Acute History of Present Illness Date of Admission: 03/06/20 Chief Complaint: Here for rehabilitation, strengthening, prior to discharge to retirement. 03/02/2020 The patient is a 80 year old Female with below past medical history presented to [facility] with neuro signs, symptoms. 03/02/2020 CT brain chronic involutional changes of brain. 03/02/2020 EKG ventricular paced rhythm. 03/02/2020 Chest X-ray degenerative changes, otherwise negative. 03/02/2020 X-ray left humerus showed arthritis, no fracture. 03/02/2020 X-ray left elbow negative. custodial resident, left arm weakness, left facial droop. Confused, facial droop improved. Symptoms bilateral, less likely stroke. Neurology recommended admission for MRI/MRA, no TPA recommended. Anemia, on Xarelto, Hemoccult positive. IV Fluids for acute kidney injury. UA consistent with urinary tract infection, urine culture sent, Rocephin given. 03/02/2020 Admit to Hospital. Rocephin for urinary tract infection. IV Fluids for acute kidney injury. Family requested placement in different retirement due to multiple contusions. 03/03/2020 Doppler of legs negative for DVT. Consult Neurology for stroke. Hold Xarelto, Aspirin, Plavix due to anemia, guaiac positive stools. MRI brain unable due to pacemaker/AICD. General surgery consulted for guaiac positive stools. 03/03/2020 CT brain chronic involutional changes of brain. 03/03/2020 Teleneurology low probability for stroke. Recommend Aspirin only, stop Plavix, stop Xarelto. 03/04/2020 Citrobacter Koseri urinary tract infection treated with Keflex. Protonix IV twice daily for upper gastrointestinal bleed. 03/05/[address] Suazo planning EGD/colonoscopy. Acute kidney injury resolved with IV fluids. 03/06/2020 Dr. Suazo EGD showed candidiasis, non-bleeding gastric ulcers. Dr. Suazo colonoscopy normal. PPI twice daily, Carafate QID for gastric ulcers. Diflucan 200MG daily x 2 weeks for gastric candidiasis. 03/06/2020 Admit to TCU with debility, here for rehabilitation, strengthening, prior to placement in different retirement. Past Medical History Past Medical History (Chronic Problems): Chronic Problems (Last Reviewed 05/22/19 @ 15:31 by Tessy Osorio) Coronary artery disease (Chronic) Stroke (Chronic) Breast cancer (Chronic) History of right breast cancer (Chronic) History of stroke (Chronic) Diabetes (Chronic) History of pacemaker (Chronic) History of cardiac defibrillator placement (Chronic) Medical History: Medical History (Last Reviewed 05/22/19 @ 15:31 by Tessy Osorio) Cardiac defibrillator in place Z95.810 Diabetes mellitus E11.9 Heart disease I51.9 Left arm surgery Pacemaker Z95.0 2018 Stroke I63.9 2018 heart cath 2018 Allergies Iodinated Contrast Media [DYEE] Allergy (Verified 05/22/19 15:32) Anaphylaxis hydrocodone bitartrate [From Vicodin] Adverse Reaction (Verified 05/22/19 15:32) Nausea/Vom/Diarrhea Home Medications: Ambulatory Orders Medication Instructions Recorded Acetaminophen [Tylenol] 650 mg PO Q4H PRN PRN 03/02/20 Anastrozole [Arimidex] 1 mg PO DAILY 03/02/20 Aspirin E.C. [Ecotrin] 81 mg PO DAILY@0800 03/02/20 Atorvastatin Calcium [Lipitor] 80 mg PO QHS 03/02/20 Calcium Carbonate 600 mg PO DAILY 03/02/20 Cholecalciferol (VIT D3) [Vitamin 1,000 unit PO DAILY 03/02/20 D3] Insulin Detemir [Levemir Flextouch] 35 unit SQ DAILY 03/02/20 Insulin Lispro [Humalog KwikPen] 5 unit SQ TID 03/02/20 Insulin Lispro [Humalog KwikPen] See Protocol SQ ACHS 03/02/20 Isosorbide Mononitrate [Isosorbide 30 mg PO DAILY 03/02/20 Mononitrate ER] Losartan Potassium [Cozaar] 25 mg PO DAILY 03/02/20 Magnesium Hydroxide [Milk of 30 ml PO DAILY PRN PRN 03/02/20 Magnesia] Melatonin 6 mg PO QHS 03/02/20 Metoprolol Succinate [Toprol Xl] 50 mg PO DAILY 03/02/20 Ondansetron HCl [Zofran] 4 mg PO Q6H PRN PRN 03/02/20 Polyethylene Glycol 3350 17 gm PO BID 03/02/20 Prednisone 20 mg PO DAILY 03/02/20 Promethazine HCl 25 mg PO DAILY PRN PRN 03/02/20 Sodium Phosphate,[place]-Dibasic 1 bottle [place] DAILY PRN PRN 03/02/20 [Fleet Enema] Tramadol HCl [Ultram] 50 mg PO Q6H PRN PRN 03/02/20 Cephalexin [Keflex] 500 mg PO Q12 03/06/20 Ferrous Sulfate 325 mg PO 1200,1700 03/06/20 Fluconazole [Diflucan] 200 mg PO DAILY 03/06/20 Furosemide [Lasix] 40 mg PO DAILY #0 03/06/20 Pantoprazole Sodium [Protonix] 40 mg PO BID 03/06/20 Sucralfate [Carafate] 1 gm PO 1HR_ACHS 03/06/20 Tamsulosin HCl [Flomax] 0.4 mg PO DAILY@1730 03/06/20 Surgical History: Surgical History (Last Reviewed 05/22/19 @ 15:31 by Tessy Osorio) History of appendectomy Z98.890, Z90.49 History of cataract extraction Z98.49 History of cholecystectomy Z98.890, Z90.49 History of hernia repair Z98.890, Z87.19 History of open heart surgery Z98.890 History of tonsillectomy Z98.890, Z90.89 Surgical History: appendectomy, cataract, cholecystectomy, coronary bypass surgery, herniorrhaphy, pacemaker implantation, tonsillectomy, - - Left arm surgery. Psychiatric History: No pertinent psych hx HOME CARE SPECIALIST History: No pertinent HOME CARE SPECIALIST history Lives: Skilled Nursing Smoking Status: Never smoker Tobacco Use: Non-smoker Alcohol: None Drugs: None - *Family History Maternal Family History: Family History (Last Reviewed 05/22/19 @ 15:31 by Tessy Osorio) Mother Arthritis History Items: No pertinent history Paternal Family History: Family History (Last Reviewed 05/22/19 @ 15:31 by Tessy Osorio) Mother Arthritis History Items: No pertinent history Review of Systems Constitutional: Reports: Weakness. Denies: Chills, Fever, Weight Change HEENT: Denies: Head Aches, Sinus Congestion, Sinus Drainage Cardiovascular: Denies: Chest Pain, Palpitations Respiratory: Denies: Cough, Shortness of breath at rest, Sputum production Gastrointestinal: Denies: Abdominal Pain, Nausea, Vomiting Genitourinary: Denies: Dysuria Musculoskeletal: Denies: Joint Pain, Joint Tenderness Skin: Denies: Rash, Wounds Neurological: Denies: Numbness, Tingling, Focal weakness Psychiatric: Denies: Anxiety, Depression, Homicidal Ideations, Suicidal Ideations Hematologic/ Lymphatic: Denies: Easy Bruising, Easy Bleeding VTE Information - Inpt Only VTE Present on Admission: No VTE Mechan Device Prophylaxis: Knee High HEMANTH Hose VTE Pharm Prophylaxis ordered?: No Reason prophylaxis not ordered:: Medical Contraindication Patient Problems: Active and Suspected Problems (Last Reviewed 05/22/19 @ 15:31 by Tessy Osorio) Debility (Acute) Candidiasis (Acute) Upper gastrointestinal bleed (Acute) Guaiac positive stools (Acute) Gastric cardia ulcer (Acute) Acute kidney injury (Acute) - Physical Exam Vitals/I&O's: Vital Signs Temp Pulse Resp BP Pulse Ox 97.7 F L 82 16 97/40 L 94 03/06/20 15:50 03/06/20 18:42 03/06/20 15:50 03/06/20 18:42 03/06/20 15:50 Oxygen Delivery Method Room Air Weight: 95.368 kg Body Mass Index (BMI) 34.9 Finger Stick Blood Glucose 230 Intake and Output for Last 24 Hours 03/04/20 03/05/20 03/06/20 23:59 23:59 23:59 Intake Total 120 / 120 Balance 120 / 120 General: Alert, Oriented x3, Cooperative HEENT: Atraumatic, PERRLA, EOMI, Normocephalic Neck: Supple, No JVD, Negative Carotid Bruits Lungs: Clear to auscultation, Normal air movement Cardiovascular: Regular rate, No murmurs Abdomen: Bowel Sounds Present, Soft, Non Tender Extremities: No edema, Capillary Refill Less than 3 Seconds Skin: No rashes, No breakdown Musculoskeletal: No Tenderness to Palpation of Joints or Extremities Neurological: Cranial nerves II-XII grossly intact Psych/Mental Status: Normal Affect, Appropriate Laboratory Results 03/06/20 17:42: POC Glucose 267 H Current Medications Acetaminophen (Tylenol) 650 mg PO Q4H PRN PRN PRN Reason: Pain Score 1-3/10 Anastrozole (Arimidex) 1 mg PO DAILY [facility] Aspirin (Ecotrin) 81 mg PO DAILY@0800 [facility] Atorvastatin Calcium (Lipitor) 80 mg PO QHS [facility] Calcium Carbonate ([place] 500) 500 mg PO DAILY@0800 [facility] Cephalexin (Keflex) 500 mg PO Q12 [facility] Stop: 03/11/20 22:00 Last Admin: 03/06/20 18:46 Dose: 500 mg Documented by: Cholecalciferol (Vitamin D (25mcg)) 1,000 unit PO DAILY [facility] Ferrous Sulfate (Ferrous Sulfate) 325 mg PO 1200,1700 [facility] Last Admin: 03/06/20 18:11 Dose: 325 mg Documented by: Fluconazole (Diflucan) 200 mg PO DAILY [facility] Stop: 03/20/20 22:00 Furosemide (Lasix) 40 mg PO DAILY [facility] Insulin Glargine (Lantus (Bkc)) 35 units SC DAILY [facility] Insulin Human Lispro (Humalog Kwikpen (Bkc)) 5 unit SC TIDCM [facility] Isosorbide Mononitrate (Imdur) 30 mg PO DAILY [facility] Losartan Potassium (Cozaar) 25 mg PO DAILY [facility] Magnesium Hydroxide (Milk Of Magnesia) 30 ml PO DAILY PRN PRN PRN Reason: Constipation Melatonin (Melatonin) 6 mg PO QHS [facility] Metoprolol Succinate (Toprol Xl (Beta Corin)) 50 mg PO DAILY [facility] Ondansetron HCl (Zofran Odt) 4 mg PO Q6H PRN PRN PRN Reason: NAUSEA Pantoprazole Sodium (Protonix) 40 mg PO BID [facility] Last Admin: 03/06/20 18:10 Dose: 40 mg Documented by: Polyethylene Glycol (Miralax) 17 gm PO BID [facility] Last Admin: 03/06/20 18:11 Dose: 17 gm Documented by: Prednisone () 20 mg PO DAILY@0800 [facility] Promethazine HCl (Phenergan Tablet) 25 mg PO DAILY PRN PRN PRN Reason: NAUSEA Sodium Biphosphate/Sodium Phosphate (Fleet Enema) 1 bottle RECTAL DAILY PRN PRN PRN Reason: Constipation Sucralfate (Carafate) 1 gm PO 1HR_ACHS DANIELLE Tamsulosin HCl (Flomax) 0.4 mg PO DAILY@1730 [facility] Last Admin: 03/06/20 18:10 Dose: 0.4 mg Documented by: Tramadol HCl (Ultram) 50 mg PO Q6H PRN PRN PRN Reason: Pain Score 1-10/10 Tuberculin PPD (Tubersol, Aplisol, Ppd) 5 tu ID X1 ONE Stop: 03/07/20 10:01 Tuberculin PPD (Tubersol, Aplisol, Ppd) 5 tu ID X1 ONE Stop: 03/14/20 10:01 Assessment/Plan All Active Problems (Last Reviewed 05/22/19 @ 15:31 by Tessy Osorio) Debility (Acute) Candidiasis (Acute) Upper gastrointestinal bleed (Acute) Guaiac positive stools (Acute) Gastric cardia ulcer (Acute) Acute kidney injury (Acute) Osteopenia (Acute) Breast cancer, right (Resolved) Facial droop (Acute) Generalized weakness (Acute) Multiple contusions (Acute) Anemia (Acute) GI bleed (Acute) Acute kidney failure (Acute) Troponin I above reference range (Acute) UTI (urinary tract infection) (Acute) 80 year old female with below past medical history hospitalized for encephalopathy secondary to urinary tract infection, stroked ruled out, complicated by anemia secondary to gastric ulcers, admitted to TCU with debility, here for rehabilitation, strengthening, prior to discharge to retirement. * Debility - PT/OT. * Pain - Tylenol 1000MG Q6H PRN pain (1-3), Tramadol 50MG Q6H PRN pain (4-10). * Bowel - Miralax 17GM BID, Senna/colace 1 tablet BID, Dulcolax 10MG daily PRN. * Adult immunization - Administer Prevnar 13, Pneumovax 23, Fluzone as appropriate. * DVT prophylaxis - hold, UGIB in hospital. * Breast cancer - Anastrozole 1MG daily, Dr. Liang. * Stroke - Aspirin 81MG daily. * Hyperlipidemia - Atorvastatin 80MG QHS. * Calcium deficiency - Calcium D 500MG daily. * C. Subhasheri UTI - Keflex 500MG Q12H 03/11/2020. * Vitamin D deficiency - D3 1000IU daily. * Iron deficiency anemia - Ferrex 150MG twice daily. * Candidal esophagitis - Fluconazole 200MG daily thru 03/20/2020. * Edema - Lasix 40MG daily. * Diabetes Mellitus II - Lantus 35 units daily, Humalog 5 units TIDAC. * Coronary Artery Disease - Metoprolol succinate 50MG daily, Losartan 25MG daily, Aspirin 81MG daily. * Insomnia - Melatonin 6MG QHS. * Nausea - Zofran 4MG Q6H PRN, Phenergan 25MG daily PRN. * Gastric ulcer - Pantoprazole 40MG twice daily, Sucralfate 1GM QACHS. * Urinary retention - Tamsulosin 0.4MG daily, indwelling centeno catheter, voiding trials per protocol.
[2020-03-06] MEDS: Atorvastatin Calcium 80 MG Tablet PO (21:26)
[2020-03-06] MEDS: MELATONIN 3 MG TABLET 6 MG PO (21:27)
[2020-03-06] MEDS: Sucralfate 1 GM Tablet PO (21:27)
[2020-03-06 22:15] LABS: Bedside Glucose 448 mg/dL (70-110)
[2020-03-06] MEDS: Insulin Lispro 100 UNIT/ML INSULN.PEN SC (22:34)
--- NOTE | 2020-03-06 22:55 | NURSING ---
Pts blood sugar 448. Gave pt 5u humalog as ordered. Dr. Kaur aware, and new order for 10u humalog X1 dose. Will continue to monitor.
[2020-03-06 22:57] VITALS: BP 114/53; PULSE 70
[2020-03-06] MEDS: Insulin Lispro 100 UNIT/ML INSULN.PEN 10 UNIT SC (23:00)
[2020-03-07 02:05] LABS: Bedside Glucose 354 mg/dL (70-110)
[2020-03-07 06:06] VITALS: BP 115/49; PULSE 78; RESP 18; TEMP 37.1; O2SAT 96
[2020-03-07] MEDS: Pantoprazole Sodium 40 MG Tablet PO ×2 (06:07→17:32)
[2020-03-07] MEDS: Polyethylene Glycol 3350 17 GM PACKET PO ×2 (06:07→17:32)
[2020-03-07] MEDS: Sucralfate 1 GM Tablet PO ×4 (06:07→20:20)
[2020-03-07] MEDS: Senna/Docusate Sodium 1 Tablet PO ×2 (06:07→17:32)
[2020-03-07] MEDS: Furosemide 40 MG Tablet PO (06:08)
[2020-03-07] MEDS: Anastrozole 1 MG Tablet PO (06:08)
[2020-03-07] MEDS: Cephalexin 500 MG Capsule PO ×2 (06:08→17:32)
[2020-03-07] MEDS: Fluconazole 100 MG Tablet 200 MG PO (06:08)
[2020-03-07] MEDS: Isosorbide Mononitrate 30 MG Tablet PO (06:08)
[2020-03-07 06:26] LABS: Bedside Glucose 314 mg/dL (70-110)
[2020-03-07 07:20] LABS: Absolute Lymphocyte Count 0.93 X10^3/uL (0.83-4.51); Basophil# 0.02 X10^3/uL; Basophil% 0.2 % (0-1); Eosinophil# 0.02 X10^3/uL; Eosinophils% 0.2 % (0-5); Hematocrit 24.6 % (37-47); Hemoglobin 7.6 g/dL (12.0-15.0); Lymphocyte # 0.93 X10^3/ul (4.0); Lymphocyte % 10.6 % (19-41); Mean Corp Hgb Conc 30.9 g/dL (32-36); Mean Corpuscular Hgb 30.6 pg (27.0-32.0); Mean Corpuscular Volume 99.2 fL (81-99); Mean Platelet Vol. 10.4 fl (6.2-12.0); Monocyte# 0.69 X10^3/uL; Monocyte% 7.9 % (0-10); NRBC Flagged by Analyzer 0.8 % (0-5); Neutrophil # 6.95 X10^3/uL (2.7-7.7); Neutrophil % 79.5 % (47-70); Platelet Count 230 K/mm3 (150-450); RBC Distribution Width CV 16.6 % (11.6-14.6); RBC Distribution Width SD 58.9 fl (35.1-43.9); Red Blood Count 2.48 M/mm3 (4.2-5.4); White Blood Count 8.8 K/mm3 (4.4-11.0)
[2020-03-07 07:36] LABS: Anion Gap 6 (5-15); BUN 27 mg/dL (7-18); BUN/Creat Ratio 17.2 RATIO (10-20); Chloride 106 mmol/L (98-107); Creatinine, Serum 1.57 mg/dL (0.55-1.02); EST Glomerular Filtration Rate 34 mL/min (>60); Est Glom Filt Rate - Afr Amer 41 mL/min (>60); Estimated Creatinine Clearance 26.57 ml/min; Glucose 318 mg/dL (74-106); Potassium 4.5 mmol/L (3.5-5.1); Sodium Level 140 mmol/L (136-145)
[2020-03-07] MEDS: predniSONE 10 MG Tablet PO (08:21)
[2020-03-07] MEDS: Iron Polysaccharide Complex 150 MG CAPSULE PO ×2 (08:21→17:32)
[2020-03-07] MEDS: Aspirin E.C. 81 MG Tablet PO (08:21)
[2020-03-07] MEDS: Insulin Lispro 100 UNIT/ML INSULN.PEN SC (08:21)
[2020-03-07] MEDS: Calcium (Elemental) 500 MG Tablet PO (08:21)
--- NOTE | 2020-03-07 10:00 | ST ---
Patient's chart reviewed upon TCU admission. Noticed history of stroke (December 2019). ST was not ordered this recent admission on acute floor or on TCU. Brain CT unremarkable. Patient denies changes in speech/cognition. Pt denies dysphagia. Spoke with RN Joy who reports patient is oriented and tolerated pills this am. Pt lives with spouse and son and handles all personal finances/med management tasks. No further ST evaluation warranted.
[2020-03-07] MEDS: Tuberculin,Purif.prot.deriv. 50 TU/ML Vial 5 ML ID (10:52)
[2020-03-07 11:20] LABS: Bedside Glucose 344 mg/dL (70-110)
--- NOTE | 2020-03-07 11:48 | NURSING ---
Dr Kaur updated on HGB 7.6, new order for repeat h/h monday.
[2020-03-07] MEDS: Insulin Lispro 100 UNIT/ML INSULN.PEN 10 UNIT SC (12:47)
[2020-03-07 12:54] VITALS: PULSE 96; RESP 16; O2SAT 92
[2020-03-07 14:18] VITALS: BP 134/62; PULSE 96; RESP 18; TEMP 37; O2SAT 92
[2020-03-07 17:11] LABS: Bedside Glucose 443 mg/dL (70-110)
--- NOTE | 2020-03-07 17:24 | NURSING ---
Dr Kaur updated on BS 443, new orders entered.
[2020-03-07] MEDS: Tamsulosin HCl 0.4 MG Capsule PO (17:32)
[2020-03-07] MEDS: Insulin Lispro 100 UNIT/ML INSULN.PEN 20 UNIT SC ×2 (17:42→22:48)
[2020-03-07] MEDS: MELATONIN 3 MG TABLET 6 MG PO (20:19)
[2020-03-07] MEDS: Atorvastatin Calcium 80 MG Tablet PO (20:20)
[2020-03-07 22:05] LABS: Bedside Glucose 402 mg/dL (70-110)
--- NOTE | 2020-03-07 22:50 | NURSING ---
PAGED DR BRENNER RE: PT'S BLOOD SUGAR OF 402 TONIGHT. RCVD ORDER FOR NOVOLOG 20 UNITS X 1 DOSE NOW SQ.
[2020-03-08] MEDS: Furosemide 40 MG Tablet PO (04:20)
[2020-03-08] MEDS: Pantoprazole Sodium 40 MG Tablet PO ×2 (04:20→16:39)
[2020-03-08] MEDS: Cephalexin 500 MG Capsule PO ×2 (04:20→16:40)
[2020-03-08 04:21] VITALS: BP 135/53; PULSE 95
[2020-03-08] MEDS: Senna/Docusate Sodium 1 Tablet PO ×2 (04:21→16:39)
[2020-03-08] MEDS: Metoprolol(XL)Succ 25 MG Tablet PO (04:21)
[2020-03-08] MEDS: Isosorbide Mononitrate 30 MG Tablet PO (04:21)
[2020-03-08] MEDS: Fluconazole 100 MG Tablet 200 MG PO (04:22)
[2020-03-08] MEDS: Polyethylene Glycol 3350 17 GM PACKET PO ×2 (04:22→16:38)
[2020-03-08] MEDS: Sucralfate 1 GM Tablet PO ×4 (04:22→22:13)
[2020-03-08] MEDS: Anastrozole 1 MG Tablet PO (04:23)
[2020-03-08] MEDS: Calcium (Elemental) 500 MG Tablet PO (08:32)
[2020-03-08] MEDS: predniSONE 10 MG Tablet PO (08:32)
[2020-03-08] MEDS: Iron Polysaccharide Complex 150 MG CAPSULE PO ×2 (08:32→16:39)
[2020-03-08] MEDS: Aspirin E.C. 81 MG Tablet PO (08:32)
[2020-03-08] MEDS: Insulin Lispro 100 UNIT/ML INSULN.PEN 20 UNIT SC ×2 (08:33→11:51)
[2020-03-08 10:47] VITALS: PULSE 82
--- NOTE | 2020-03-08 14:19 | NURSING ---
Addendum entered by Afshan Ruiz 03/08/20 18:04: UPDATED R' AND ON INCREASE OF INSULIN. Original Note: CALLED R' WITH DAILY UPDATE.
--- NOTE | 2020-03-08 14:31 | NURSING ---
Notified [facility] & spoke with MIGUEL ÁNGEL Rosario regarding pts code status. She reported that is full code.
[2020-03-08 14:41] VITALS: BP 116/42; PULSE 62; RESP 19; TEMP 36.7; O2SAT 96
[2020-03-08] MEDS: Tamsulosin HCl 0.4 MG Capsule PO (16:40)
[2020-03-08 17:03] LABS: Bedside Glucose 189 mg/dL (70-110)
[2020-03-08 17:03] LABS: Bedside Glucose 156 mg/dL (70-110)
[2020-03-08 17:04] LABS: Bedside Glucose 181 mg/dL (70-110)
[2020-03-08] MEDS: Insulin Lispro 100 UNIT/ML INSULN.PEN 33 UNIT SC (17:57)
[2020-03-08 21:40] LABS: Bedside Glucose 171 mg/dL (70-110)
[2020-03-08] MEDS: MELATONIN 3 MG TABLET 6 MG PO (22:13)
[2020-03-08] MEDS: Atorvastatin Calcium 80 MG Tablet PO (22:13)
[2020-03-09] MEDS: traMADol 50 MG Tablet PO (03:53)
[2020-03-09 04:01] VITALS: BP 135/49; PULSE 61; RESP 18; TEMP 36.6; O2SAT 94
[2020-03-09] MEDS: Cephalexin 500 MG Capsule PO ×2 (04:03→16:19)
[2020-03-09] MEDS: Pantoprazole Sodium 40 MG Tablet PO ×2 (04:03→16:19)
[2020-03-09] MEDS: Senna/Docusate Sodium 1 Tablet PO ×2 (04:03→16:19)
[2020-03-09] MEDS: Polyethylene Glycol 3350 17 GM PACKET PO (04:03)
[2020-03-09 04:04] VITALS: PULSE 61
[2020-03-09] MEDS: Metoprolol(XL)Succ 25 MG Tablet PO (04:04)
[2020-03-09] MEDS: Fluconazole 100 MG Tablet 200 MG PO (04:04)
[2020-03-09] MEDS: Isosorbide Mononitrate 30 MG Tablet PO (04:05)
[2020-03-09] MEDS: Anastrozole 1 MG Tablet PO (04:06)
[2020-03-09] MEDS: Furosemide 40 MG Tablet PO (04:07)
[2020-03-09 05:42] LABS: Hematocrit 23.2 % (37-47); Hemoglobin 7.2 g/dL (12.0-15.0)
[2020-03-09] MEDS: Sucralfate 1 GM Tablet PO ×4 (06:21→21:50)
[2020-03-09 06:26] LABS: Bedside Glucose 114 mg/dL (70-110)
[2020-03-09] MEDS: Calcium (Elemental) 500 MG Tablet PO (08:25)
[2020-03-09] MEDS: Aspirin E.C. 81 MG Tablet PO (08:25)
[2020-03-09] MEDS: Iron Polysaccharide Complex 150 MG CAPSULE PO ×2 (08:25→16:19)
[2020-03-09] MEDS: predniSONE 10 MG Tablet PO (08:27)
[2020-03-09] MEDS: Insulin Lispro 100 UNIT/ML INSULN.PEN 10 UNIT SC (09:00)
[2020-03-09 10:55] VITALS: PULSE 82; RESP 18; O2SAT 91
[2020-03-09 11:00] LABS: Bedside Glucose 107 mg/dL (70-110)
[2020-03-09] MEDS: Ondansetron ODT 4 MG Tablet PO (12:01)
--- NOTE | 2020-03-09 14:10 | CASEMGMT ---
Social Work Discussed code status with pt. Pt confirmed full code. MOLST form completed and placed in chart. Millie Mann MSW TECHNICAL AID
[2020-03-09] MEDS: proMETHazine 25 MG Tablet PO (14:24)
[2020-03-09 15:38] VITALS: BP 112/54; PULSE 82; RESP 18; TEMP 36.5; O2SAT 91
[2020-03-09 16:11] LABS: Bedside Glucose 93 mg/dL (70-110)
[2020-03-09] MEDS: Tamsulosin HCl 0.4 MG Capsule PO ×2 (16:19)
[2020-03-09] MEDS: Atorvastatin Calcium 80 MG Tablet PO (21:50)
[2020-03-09] MEDS: MELATONIN 3 MG TABLET 6 MG PO (21:50)
[2020-03-09] MEDS: 0.9% Saline Lock 10 ML Syringe IV (22:29)
[2020-03-09 22:36] LABS: Bedside Glucose 55 mg/dL (70-110)
--- NOTE | 2020-03-09 22:39 | NURSING ---
Addendum entered by Tawny Xavier 03/09/20 23:57: repeat accucheck 128 Original Note: HS accucheck 55. Pt just had jello cup with nurse assist. Pt also given chocolate ice cream with nurse assist. Will recheck accucheck. Pt denies complaints at this time. Did not eat well today due to nausea.
[2020-03-10 00:01] LABS: Bedside Glucose 128 mg/dL (70-110)
[2020-03-10 05:50] VITALS: BP 147/66; PULSE 77; RESP 18; TEMP 36.1; O2SAT 92
[2020-03-10] MEDS: Isosorbide Mononitrate 30 MG Tablet PO (06:00)
[2020-03-10] MEDS: 0.9% Saline Lock 10 ML Syringe IV ×2 (06:00→10:20)
[2020-03-10] MEDS: Polyethylene Glycol 3350 17 GM PACKET PO ×2 (06:00→18:14)
[2020-03-10] MEDS: Fluconazole 100 MG Tablet 200 MG PO (06:00)
[2020-03-10] MEDS: Anastrozole 1 MG Tablet PO (06:00)
[2020-03-10] MEDS: Pantoprazole Sodium 40 MG Tablet PO ×2 (06:00→18:14)
[2020-03-10 06:01] VITALS: PULSE 78
[2020-03-10] MEDS: Metoprolol(XL)Succ 25 MG Tablet PO (06:01)
[2020-03-10] MEDS: Cephalexin 500 MG Capsule PO ×2 (06:01→18:14)
[2020-03-10] MEDS: Sucralfate 1 GM Tablet PO ×4 (06:01→22:22)
[2020-03-10] MEDS: Furosemide 40 MG Tablet PO (06:01)
[2020-03-10] MEDS: Senna/Docusate Sodium 1 Tablet PO ×2 (06:01→18:13)
--- NOTE | 2020-03-10 06:24 | NURSING ---
3 rings removed from right hand due to edema. locked in pt's med lock box in room. pt encouraged to have family cotton picker.
[2020-03-10 06:35] LABS: Bedside Glucose 98 mg/dL (70-110)
[2020-03-10] MEDS: Bisacodyl 10 MG Suppository RECTAL (07:27)
--- NOTE | 2020-03-10 08:14 | RAD_ITS ---
STUDY: X-RAY - ABDOMEN/PELVIS REASON FOR EXAM: Female, 80 years old. NAUSEA, ABD DISCOMFORT TECHNIQUE: 3 views COMPARISON: None. FINDINGS: Normal visualized lung bases. Pacer leads seen along the base of the heart. There is an abundance of fecal material throughout the colon. There is no demonstrated free abdominal air. The visualized liver, spleen and kidneys are grossly normal in size and morphology. Normal soft tissue structures. There are diffuse degenerative changes of the visualized lumbar spine. RAD/Abdomen Single View IMPRESSION: No acute findings, retained stool noted throughout the entirety of the colon which may be impacted Electronically Signed: Randy Rosa MD at 9:10 EDT , Service support ,
[2020-03-10] MEDS: Calcium (Elemental) 500 MG Tablet PO (08:46)
[2020-03-10] MEDS: predniSONE 10 MG Tablet PO (08:46)
[2020-03-10] MEDS: Iron Polysaccharide Complex 150 MG CAPSULE PO ×2 (08:46→18:14)
[2020-03-10] MEDS: Aspirin E.C. 81 MG Tablet PO (08:47)
[2020-03-10] MEDS: Furosemide 20 MG/2 ML VIAL IV (10:16)
--- NOTE | 2020-03-10 14:01 | PHA.CONS_ITS ---
<Sonja Aleman - Last Filed: 03/10/20 14:01> Progress Note - Pharmacy Subjective: TCU Admission Objective: Allergies amoxicillin [From Augmentin] Allergy (Verified 03/08/20 12:37) PT UNSURE OF REACTION clavulanic acid [From Augmentin] Allergy (Verified 03/08/20 12:37) PT UNSURE OF REACTION Iodinated Contrast Media [DYEE] Allergy (Verified 05/22/19 15:32) Anaphylaxis levofloxacin [From Levaquin] Allergy (Verified 03/08/20 12:37) PT UNSURE OF REACTION loratadine [From Claritin] Allergy (Verified 03/08/20 12:37) PT UNSURE OF REACTION hydrocodone bitartrate [From Vicodin] Adverse Reaction (Verified 05/22/19 15:32) Nausea/Vom/Diarrhea iodine Adverse Reaction (Verified 03/08/20 12:37) Nausea/Vom/Diarrhea Current Medications Generic Name Dose Route Start Last Admin Trade Name Freq PRN Reason Stop Dose Admin Acetaminophen 1,000 mg 03/06/20 20:23 Tylenol PO Q6H PRN PRN Pain Score 1-3/10 Anastrozole 1 mg 03/07/20 06:00 03/10/20 06:00 Arimidex PO 1 mg DAILY DANIELLE Administration Aspirin 81 mg 03/07/20 08:00 03/10/20 08:47 Ecotrin PO 81 mg DAILY@0800 DANIELLE Administration Atorvastatin Calcium 80 mg 03/06/20 22:00 03/09/20 21:50 Lipitor PO 80 mg QHS DANIELLE Administration Bisacodyl 10 mg 03/06/20 20:23 03/10/20 07:27 Dulcolax RECTAL 10 mg DAILY PRN Administration Constipation Calcium Carbonate 500 mg 03/07/20 08:00 03/10/20 08:46 Os-Olayinka 500 PO 500 mg DAILY@0800 DANIELLE Administration Cephalexin 500 mg 03/06/20 18:00 03/10/20 06:01 Keflex PO 03/11/20 22:00 500 mg Q12 DANIELLE Administration Cholecalciferol 1,000 unit 03/07/20 06:00 03/10/20 06:00 Vitamin D (25mcg) PO 1,000 unit DAILY DANIELLE Administration Dextrose 0 gm 03/07/20 17:23 D50w Syringe IV X1 PRN Hypoglycemia Protocol Fluconazole 200 mg 03/07/20 06:00 03/10/20 06:00 Diflucan PO 03/20/20 22:00 200 mg DAILY DANIELLE Administration Furosemide 40 mg 03/07/20 06:00 03/10/20 06:01 Lasix PO 03/14/20 06:01 40 mg DAILY DANIELLE Administration Glucagon 1 mg 03/07/20 17:23 IM .X1 PRN Hypoglycemia Isosorbide Mononitrate 30 mg 03/07/20 06:00 03/10/20 06:00 Imdur PO 30 mg DAILY DANIELLE Administration Melatonin 6 mg 03/06/20 22:00 03/09/20 21:50 Melatonin PO 6 mg QHS DANIELLE Administration Metoclopramide HCl 10 mg 03/10/20 12:00 Reglan IV Q6 [facility] Metoprolol Succinate 25 mg 03/08/20 06:00 03/10/20 06:01 Toprol Xl (Beta Corin) PO 25 mg DAILY DANIELLE Administration Pantoprazole Sodium 40 mg 03/06/20 18:00 03/10/20 06:00 Protonix PO 40 mg BID DANIELLE Administration Polyethylene Glycol 17 gm 03/06/20 18:00 03/10/20 06:00 Miralax PO 17 gm BID DANIELLE Administration Polysaccharide Iron Complex 150 mg 03/07/20 08:00 03/10/20 08:46 Ferrex 150 PO 150 mg BIDCM DANIELLE Administration Prednisone 10 mg 03/07/20 08:00 03/10/20 08:46 PO 03/12/20 08:01 10 mg DAILY@0800 DANIELLE Administration Prednisone 5 mg 03/13/20 08:00 PO 03/18/20 08:01 DAILY@0800 [facility] Senna/Docusate Sodium 1 tablet 03/07/20 06:00 03/10/20 06:01 Senokot-S, Clarisa-Colace PO 1 tablet BID DANIELLE Administration Sodium Chloride 10 - 40 ml 03/09/20 15:10 03/10/20 10:20 IV 10 ml UD PRN Administration SALINE FLUSH Sucralfate 1 gm 03/06/20 22:00 03/10/20 10:18 Carafate PO 1 gm 1HR_ACHS DANIELLE Administration Tamsulosin HCl 0.4 mg 03/06/20 17:30 03/09/20 16:19 Flomax PO 0.4 mg DAILY@1730 DANIELLE Administration Tramadol HCl 50 mg 03/06/20 16:07 03/09/20 03:53 Ultram PO 50 mg Q6H PRN PRN Administration Pain Score 4-05/30 Tuberculin PPD 5 tu 03/14/20 10:00 TubersolHaimisol, Ppd ID 03/14/20 10:01 X1 ONE Problem List (Last Reviewed 05/22/19 @ 15:31 by Tessy Osorio) Debility (Acute) Candidiasis (Acute) Upper gastrointestinal bleed (Acute) Guaiac positive stools (Acute) Gastric cardia ulcer (Acute) Coronary artery disease (Chronic) Stroke (Chronic) Acute kidney injury (Acute) Breast cancer (Chronic) Vital Signs Temp Pulse Resp BP Pulse Ox 97.0 F L 78 18 147/66 H 92 03/10/20 05:50 03/10/20 06:01 03/10/20 05:50 03/10/20 05:50 03/10/20 05:50 Oxygen Delivery Method Room Air Weight: 94.971 kg Body Mass Index (BMI) 34.9 Finger Stick Blood Glucose 230 Sodium 140 mmol/L (136-145) 03/07/20 06:53 Potassium 4.5 mmol/L (3.5-5.1) 03/07/20 06:53 Chloride 106 mmol/L (98-107) 03/07/20 06:53 Carbon Dioxide 28.0 mmol/L (21.0-32.0) 03/07/20 06:53 Anion Gap 6 (5-15) 03/07/20 06:53 BUN 27 mg/dL (7-18) H 03/07/20 06:53 Creatinine 1.57 mg/dL (0.55-1.02) H 03/07/20 06:53 Est GFR (MDRD) Af Amer 41 mL/min (>60) L 03/07/20 06:53 Est GFR (MDRD) Non-Af 34 mL/min (>60) L 03/07/20 06:53 BUN/Creatinine Ratio 17.2 RATIO (10-20) 03/07/20 06:53 Glucose 318 mg/dL (74-106) H 03/07/20 06:53 Assessment/Plan: 1. Pain: acetaminophen 1000mg PO Q6H PRN pain 1-10/28 and tramadol 50mg Q6H PRN pain 4-10. Please continue to monitor renal function, increased pain, constipation, respiratory depression and PRN usage. 2. C. koseri UTI: cephalexin 500mg PO Q12 thru 03/11/20. Please continue to monitor for S/S of infection, diarrhea, and renal function. Dose is appropriate for renal function using adjusted body weight. 3. Candidal esophagitis: fluconazole 200mg PO daily thru 03/20/20. Please continue to monitor for S/S of infection and renal function. 4. Breast cancer: anastrozole 1mg PO daily. Please continue to monitor bone mineral density and for hot flashes. 5. CAD/stroke: aspirin 81mg PO DAILYCM, metoprolol succinate 25mg PO daily, and isosorbide mononitrate 30mg PO daily. Please continue to monitor hemoglobin (last 7.2 g/dL), S/S of bleeding/DVT, BP (last 147/66) and HR (last 78). 6. Hyperlipidemia: atorvastatin 80mg PO QHS. Please continue to monitor lipid panel and LFT's annually. 7. Edema: furosemide 40mg PO daily. Please continue to monitor for edema, renal function and electrolytes. 8. Gastric ulcer: pantoprazole 40mg PO BID and sucralfate 1gm PO ACHS. Please continue to monitor for S/S ulcer and diarrhea. 9. Urinary retention: tamsulosin 0.4mg PO daily. Please continue to monitor for hypotension and urinary frequency. 10. Iron deficiency anemia: Ferrex 150mg PO BIDCM. Please continue to monitor hemoglobin (last 7.2g/dl) and for dark stools. *11. Vitamin/electrolyte deficiencies: calcium carbonate 500mg PO DAILYCM and cholecalciferol 1000units PO DAILY. Please consider ordering a vitamin D level now and then annually as clinically appropriate. Last level from 2018. Please continue to monitor calcium levels. 12. Insomnia: melatonin 6mg PO QHS. Please continue to monitor for insomnia. 13. Nausea: metoclopramide 10mg IV Q6. Please continue to monitor for nausea. Psychotropic Medications: none Unnecessary Medications: Prednisone taper. Patient came in on 20mg PO daily of prednisone but I could not find an indication in the chart. Patient is now and on a taper to be completed 03/18/20. Bowel Regimen: Miralax 17gm PO BID, senna/docusate 1T PO BID, and bisacodyl 10mg [place] daily PRN constipation. Please continue to monitor for constipation, diarrhea and PRN usage. Date of Note:: 03/10/20 - Provider Comments Provider responsibility: Provider responsible to enter orders to implement recommendations <Hao Kaur Chi - Last Filed: 03/10/20 18:01> Progress Note - Pharmacy Subjective: [] Objective: Allergies amoxicillin [From Augmentin] Allergy (Verified 03/08/20 12:37) PT UNSURE OF REACTION clavulanic acid [From Augmentin] Allergy (Verified 03/08/20 12:37) PT UNSURE OF REACTION Iodinated Contrast Media [DYEE] Allergy (Verified 05/22/19 15:32) Anaphylaxis levofloxacin [From Levaquin] Allergy (Verified 03/08/20 12:37) PT UNSURE OF REACTION loratadine [From Claritin] Allergy (Verified 03/08/20 12:37) PT UNSURE OF REACTION hydrocodone bitartrate [From Vicodin] Adverse Reaction (Verified 05/22/19 15:32) Nausea/Vom/Diarrhea iodine Adverse Reaction (Verified 03/08/20 12:37) Nausea/Vom/Diarrhea Current Medications Generic Name Dose Route Start Last Admin Trade Name Freq PRN Reason Stop Dose Admin Acetaminophen 1,000 mg 03/06/20 20:23 Tylenol PO Q6H PRN PRN Pain Score 1-3/10 Anastrozole 1 mg 03/07/20 06:00 03/10/20 06:00 Arimidex PO 1 mg DAILY DANIELLE Administration Aspirin 81 mg 03/07/20 08:00 03/10/20 08:47 Ecotrin PO 81 mg DAILY@0800 DANIELLE Administration Atorvastatin Calcium 80 mg 03/06/20 22:00 03/09/20 21:50 Lipitor PO 80 mg QHS DANIELLE Administration Bisacodyl 10 mg 03/06/20 20:23 03/10/20 07:27 Dulcolax RECTAL 10 mg DAILY PRN Administration Constipation Calcium Carbonate 500 mg 03/07/20 08:00 03/10/20 08:46 Os-Olayinka 500 PO 500 mg DAILY@0800 DANIELLE Administration Cephalexin 500 mg 03/06/20 18:00 03/10/20 06:01 Keflex PO 03/11/20 22:00 500 mg Q12 DANIELLE Administration Cholecalciferol 1,000 unit 03/07/20 06:00 03/10/20 06:00 Vitamin D (25mcg) PO 1,000 unit DAILY DANIELLE Administration Dextrose 0 gm 03/07/20 17:23 D50w Syringe IV X1 PRN Hypoglycemia Protocol Fluconazole 200 mg 03/07/20 06:00 03/10/20 06:00 Diflucan PO 03/20/20 22:00 200 mg DAILY DANIELLE Administration Furosemide 40 mg 03/07/20 06:00 03/10/20 06:01 Lasix PO 03/14/20 06:01 40 mg DAILY DANIELLE Administration Glucagon 1 mg 03/07/20 17:23 IM .X1 PRN Hypoglycemia Insulin Glargine 20 units 03/10/20 22:00 Lantus ([facility]) SC QHS DANIELLE Insulin Human Lispro 7 unit 03/11/20 06:45 Humalog Kwikpen ([facility]) SC TIDAC [facility] Isosorbide Mononitrate 30 mg 03/07/20 06:00 03/10/20 06:00 Imdur PO 30 mg DAILY DANIELLE Administration Magnesium Citrate 300 ml 03/10/20 17:53 Citrate Of Magnesia PO 03/10/20 17:54 X1 ONE Melatonin 6 mg 03/06/20 22:00 03/09/20 21:50 Melatonin PO 6 mg QHS DANIELLE Administration Metoclopramide HCl 10 mg 03/10/20 12:00 03/10/20 14:04 Reglan IV Not Given Q6 DANIELLE Metoprolol Succinate 25 mg 03/08/20 06:00 03/10/20 06:01 Toprol Xl (Beta Corin) PO 25 mg DAILY DANIELLE Administration Pantoprazole Sodium 40 mg 03/06/20 18:00 03/10/20 06:00 Protonix PO 40 mg BID DANIELLE Administration Polyethylene Glycol 17 gm 03/06/20 18:00 03/10/20 06:00 Miralax PO 17 gm BID DANIELLE Administration Polysaccharide Iron Complex 150 mg 03/07/20 08:00 03/10/20 08:46 Ferrex 150 PO 150 mg BIDCM DANIELLE Administration Prednisone 10 mg 03/07/20 08:00 03/10/20 08:46 PO 03/12/20 08:01 10 mg DAILY@0800 DANIELLE Administration Prednisone 5 mg 03/13/20 08:00 PO 03/18/20 08:01 DAILY@0800 [facility] Senna/Docusate Sodium 1 tablet 03/07/20 06:00 03/10/20 06:01 Senokot-S, Clarisa-Colace PO 1 tablet BID DANIELLE Administration Sodium Chloride 10 - 40 ml 03/09/20 15:10 03/10/20 10:20 IV 10 ml UD PRN Administration SALINE FLUSH Sucralfate 1 gm 03/06/20 22:00 03/10/20 17:19 Carafate PO 1 gm 1HR_ACHS DANIELLE Administration Tamsulosin HCl 0.4 mg 03/06/20 17:30 03/09/20 16:19 Flomax PO 0.4 mg DAILY@1730 DANIELLE Administration Tramadol HCl 50 mg 03/06/20 16:07 03/09/20 03:53 Ultram PO 50 mg Q6H PRN PRN Administration Pain Score 4-10/10 Tuberculin PPD 5 tu 03/14/20 10:00 Tubersol, Aplisol, Ppd ID 03/14/20 10:01 X1 ONE Problem List (Last Reviewed 05/22/19 @ 15:31 by Tessy Osorio) Debility (Acute) Candidiasis (Acute) Upper gastrointestinal bleed (Acute) Guaiac positive stools (Acute) Gastric cardia ulcer (Acute) Coronary artery disease (Chronic) Stroke (Chronic) Acute kidney injury (Acute) Breast cancer (Chronic) Vital Signs Temp Pulse Resp BP Pulse Ox 97.0 F L 78 18 147/66 H 92 03/10/20 05:50 03/10/20 06:01 03/10/20 05:50 03/10/20 05:50 03/10/20 05:50 Oxygen Delivery Method Room Air Weight: 94.971 kg Body Mass Index (BMI) 34.9 Finger Stick Blood Glucose 230 Sodium 140 mmol/L (136-145) 03/07/20 06:53 Potassium 4.5 mmol/L (3.5-5.1) 03/07/20 06:53 Chloride 106 mmol/L (98-107) 03/07/20 06:53 Carbon Dioxide 28.0 mmol/L (21.0-32.0) 03/07/20 06:53 Anion Gap 6 (5-15) 03/07/20 06:53 BUN 27 mg/dL (7-18) H 03/07/20 06:53 Creatinine 1.57 mg/dL (0.55-1.02) H 03/07/20 06:53 Est GFR (MDRD) Af Amer 41 mL/min (>60) L 03/07/20 06:53 Est GFR (MDRD) Non-Af 34 mL/min (>60) L 03/07/20 06:53 BUN/Creatinine Ratio 17.2 RATIO (10-20) 03/07/20 06:53 Glucose 318 mg/dL (74-106) H 03/07/20 06:53 Assessment/Plan: Psychotropic Medications: Unnecessary Medications: Bowel Regimen: - Provider Comments Provider responsibility: Provider responsible to enter orders to implement recommendations Provider Comments to Recommendations by Pharmacy: Agree
[2020-03-10 17:26] LABS: Bedside Glucose 342 mg/dL (70-110)
[2020-03-10] MEDS: Metoclopramide 10 MG/2 ML Vial IV (18:12)
[2020-03-10] MEDS: Insulin Lispro 100 UNIT/ML INSULN.PEN 7 UNIT SC (18:15)
[2020-03-10] MEDS: Magnesium Citrate 300 ML PO (18:25)
[2020-03-10] MEDS: Lactulose 20 GM/30 ML UDC PO (22:21)
[2020-03-10] MEDS: Atorvastatin Calcium 80 MG Tablet PO (22:22)
[2020-03-10] MEDS: MELATONIN 3 MG TABLET 6 MG PO (22:23)
[2020-03-10 22:30] LABS: Bedside Glucose 268 mg/dL (70-110)
[2020-03-11] MEDS: Metoclopramide 10 MG/2 ML Vial IV ×4 (00:01→17:22)
[2020-03-11] MEDS: 0.9% Saline Lock 10 ML Syringe IV ×4 (00:01→22:04)
[2020-03-11 00:11] VITALS: BP 151/51; PULSE 61; RESP 16; TEMP 36.4; O2SAT 93
[2020-03-11 05:58] VITALS: BP 140/55; PULSE 66; RESP 18; TEMP 36.7; O2SAT 93
[2020-03-11] MEDS: Cephalexin 500 MG Capsule PO ×2 (06:04→16:59)
[2020-03-11] MEDS: Isosorbide Mononitrate 30 MG Tablet PO (06:04)
[2020-03-11] MEDS: Furosemide 40 MG Tablet PO (06:04)
[2020-03-11] MEDS: Anastrozole 1 MG Tablet PO (06:04)
[2020-03-11] MEDS: Lactulose 20 GM/30 ML UDC PO ×2 (06:04→16:59)
[2020-03-11] MEDS: Fluconazole 100 MG Tablet 200 MG PO (06:04)
[2020-03-11] MEDS: Pantoprazole Sodium 40 MG Tablet PO ×2 (06:05→17:00)
[2020-03-11] MEDS: Polyethylene Glycol 3350 17 GM PACKET PO ×2 (06:05→17:00)
[2020-03-11 06:06] VITALS: BP 140/55; PULSE 66
[2020-03-11] MEDS: Metoprolol(XL)Succ 25 MG Tablet PO (06:06)
[2020-03-11] MEDS: Sucralfate 1 GM Tablet PO ×4 (06:06→21:33)
[2020-03-11] MEDS: Senna/Docusate Sodium 1 Tablet PO ×2 (06:06→17:01)
[2020-03-11 06:36] LABS: Bedside Glucose 220 mg/dL (70-110)
[2020-03-11] MEDS: Aspirin E.C. 81 MG Tablet PO (07:56)
[2020-03-11] MEDS: predniSONE 10 MG Tablet PO (07:56)
[2020-03-11] MEDS: Insulin Lispro 100 UNIT/ML INSULN.PEN 7 UNIT SC ×2 (07:56→12:16)
[2020-03-11] MEDS: Iron Polysaccharide Complex 150 MG CAPSULE PO ×2 (07:56→16:58)
[2020-03-11] MEDS: Calcium (Elemental) 500 MG Tablet PO (07:56)
[2020-03-11 11:03] LABS: Bedside Glucose 302 mg/dL (70-110)
--- NOTE | 2020-03-11 11:06 | CASEMGMT ---
Social Work IDT met with patient and son via conference call for care plan meeting. Discussed patient's progress in therapy. Pt is maxA x2 for bed mobility, maura for transfers - trialed slideboard, but pt having difficulty with using slideboard. Pt is maxA for grooming, toileting, bathing and dressing. Pt is on a vegetarian, 1800 calorie diet. Pt has wounds and centeno and received blood transfusion 03/10. Pt is out of isolation 03/20. Explained [employer] NRD 03/17. Pt lives at home with her and son although they both work during the day. Inquired about alternative DC plan - pt adamant about returning home. Will continue to follow for discharge planning and support. Millie Mann, PURCHASING COORDINATOR SALES AUDIT CLERK
[2020-03-11 15:19] VITALS: BP 148/78; PULSE 87; RESP 18; TEMP 36.3; O2SAT 92
[2020-03-11 16:41] LABS: Bedside Glucose 319 mg/dL (70-110)
[2020-03-11 16:57] LABS: Hematocrit 32.8 % (37-47); Hemoglobin 10.6 g/dL (12.0-15.0)
[2020-03-11] MEDS: Tamsulosin HCl 0.4 MG Capsule PO (16:58)
[2020-03-11] MEDS: Insulin Lispro 100 UNIT/ML INSULN.PEN 13 UNIT SC (18:19)
[2020-03-11 20:05] LABS: Bedside Glucose 298 mg/dL (70-110)
[2020-03-11] MEDS: MELATONIN 3 MG TABLET 6 MG PO (21:34)
[2020-03-11] MEDS: Atorvastatin Calcium 80 MG Tablet PO (21:34)
[2020-03-11] MEDS: Nystatin Powder 15gm Bottle 1 APPLIC TOPICAL (22:03)
[2020-03-11] MEDS: Menthol/Lanolin/Calamine/Znox 113 GM Tube 1 APPLIC TOPICAL (22:03)
[2020-03-12 03:01] LABS: Bedside Glucose 158 mg/dL (70-110)
[2020-03-12 05:35] VITALS: BP 176/61; PULSE 75; RESP 18; TEMP 36.2; O2SAT 91
[2020-03-12] MEDS: Pantoprazole Sodium 40 MG Tablet PO ×2 (05:40→16:40)
[2020-03-12] MEDS: Lactulose 20 GM/30 ML UDC PO ×2 (05:41→16:41)
[2020-03-12] MEDS: Nystatin Powder 15gm Bottle 1 APPLIC TOPICAL ×2 (05:41→21:53)
[2020-03-12] MEDS: Menthol/Lanolin/Calamine/Znox 113 GM Tube 1 APPLIC TOPICAL ×2 (05:41→21:53)
[2020-03-12] MEDS: Anastrozole 1 MG Tablet PO (05:41)
[2020-03-12] MEDS: Polyethylene Glycol 3350 17 GM PACKET PO ×2 (05:42→16:41)
[2020-03-12] MEDS: Fluconazole 100 MG Tablet 200 MG PO (05:42)
[2020-03-12] MEDS: Sucralfate 1 GM Tablet PO ×4 (05:42→21:52)
[2020-03-12] MEDS: Senna/Docusate Sodium 1 Tablet PO ×2 (05:42→16:40)
[2020-03-12 05:43] VITALS: BP 176/61; PULSE 75
[2020-03-12] MEDS: Metoprolol(XL)Succ 25 MG Tablet PO (05:43)
[2020-03-12] MEDS: Isosorbide Mononitrate 30 MG Tablet PO (05:43)
[2020-03-12] MEDS: Furosemide 40 MG Tablet PO (05:44)
[2020-03-12 06:31] LABS: Bedside Glucose 141 mg/dL (70-110)
[2020-03-12] MEDS: Aspirin E.C. 81 MG Tablet PO (08:18)
[2020-03-12] MEDS: Calcium (Elemental) 500 MG Tablet PO (08:18)
[2020-03-12] MEDS: Iron Polysaccharide Complex 150 MG CAPSULE PO ×2 (08:18→15:52)
[2020-03-12] MEDS: predniSONE 10 MG Tablet PO (08:18)
[2020-03-12] MEDS: Insulin Lispro 100 UNIT/ML INSULN.PEN 17 UNIT SC (08:21)
--- NOTE | 2020-03-12 10:10 | CASEMGMT ---
BIMS and PHQ9 interviews completed on this date for MDS assessment. EFRAIN Lee
[2020-03-12 10:56] LABS: Bedside Glucose 113 mg/dL (70-110)
[2020-03-12 11:44] VITALS: PULSE 93; RESP 18; O2SAT 90
[2020-03-12] MEDS: Insulin Lispro 100 UNIT/ML INSULN.PEN 15 UNIT SC ×2 (11:57→17:56)
[2020-03-12 14:31] VITALS: BP 142/70; PULSE 93; RESP 18; TEMP 36.9; O2SAT 90
--- NOTE | 2020-03-12 14:59 | MDS.RN ---
Pain interview for edgar 03/13/20 completed.
--- NOTE | 2020-03-12 16:22 | CHAPLAIN ---
Type of Pastoral Visit _x__ Initial Visit ___ Follow-up Visit ___ On-call Visit ___ General Patient Visit ___ Spiritual Assessment ___ Family Conference ___ Bereavement ___ Rapid Response ___ Code Blue ___ Other (describe below) Pastoral Care Referral From _x__ Patient ___ Family ___ Nurse ___ Physician ___ Oven Heater Helper ___ Stained Glass Artist ___ Other (describe below) Sacrament/Intervention _x__ Active listening ___ Anointing ___ Yazidism ___ Bereavement ___ Communion _x__ Simran exploration ___ ___ Life review _x__ Prayer ___ Reconciliation ___ Sacrament of Sick _x__ Supportive presence ___ Wedding ___ Other (describe below) Pastoral Comments patient seen previously by this home health aide caregiver in [place]; pt has strong simran in God and strong connection to the [facility] [employer] in [place]; pt asks about words to some hymns and we sing together in the room; pt likes to talk about simran and her hope in going home someday; pt welcomes spiritual care visits and prayer
[2020-03-12 16:30] LABS: Bedside Glucose 187 mg/dL (70-110)
[2020-03-12] MEDS: Tamsulosin HCl 0.4 MG Capsule PO (16:40)
[2020-03-12 21:21] LABS: Bedside Glucose 189 mg/dL (70-110)
[2020-03-12] MEDS: Atorvastatin Calcium 80 MG Tablet PO (21:52)
[2020-03-12] MEDS: MELATONIN 3 MG TABLET 6 MG PO (21:52)
[2020-03-13 05:58] VITALS: BP 159/82; PULSE 99
[2020-03-13] MEDS: Anastrozole 1 MG Tablet PO (05:58)
[2020-03-13] MEDS: Lactulose 20 GM/30 ML UDC PO (05:58)
[2020-03-13] MEDS: Metoprolol(XL)Succ 25 MG Tablet PO (05:58)
[2020-03-13] MEDS: Furosemide 40 MG Tablet PO (05:58)
[2020-03-13] MEDS: Fluconazole 100 MG Tablet 200 MG PO (05:58)
[2020-03-13] MEDS: Menthol/Lanolin/Calamine/Znox 113 GM Tube 1 APPLIC TOPICAL ×2 (05:58→21:18)
[2020-03-13] MEDS: Senna/Docusate Sodium 1 Tablet PO ×2 (05:58→16:38)
[2020-03-13] MEDS: Isosorbide Mononitrate 30 MG Tablet PO (05:58)
[2020-03-13] MEDS: Polyethylene Glycol 3350 17 GM PACKET PO ×2 (05:59→16:38)
[2020-03-13] MEDS: Nystatin Powder 15gm Bottle 1 APPLIC TOPICAL ×2 (05:59→21:24)
[2020-03-13] MEDS: Pantoprazole Sodium 40 MG Tablet PO ×2 (05:59→16:38)
[2020-03-13 06:08] VITALS: BP 159/82; PULSE 99; RESP 20; TEMP 36.8; O2SAT 96
[2020-03-13 06:26] LABS: Bedside Glucose 122 mg/dL (70-110)
[2020-03-13] MEDS: Sucralfate 1 GM Tablet PO ×4 (06:34→21:23)
[2020-03-13] MEDS: Insulin Lispro 100 UNIT/ML INSULN.PEN 15 UNIT SC (06:34)
--- NOTE | 2020-03-13 06:49 | ED.RN ---
100cc of emesis this am after taking carafate w/applesauce. nausea now resolved, per pt.
[2020-03-13] MEDS: Calcium (Elemental) 500 MG Tablet PO (08:23)
[2020-03-13] MEDS: Iron Polysaccharide Complex 150 MG CAPSULE PO ×2 (08:23→16:37)
[2020-03-13] MEDS: predniSONE 5 MG Tablet PO (08:23)
[2020-03-13] MEDS: Aspirin E.C. 81 MG Tablet PO (08:23)
--- NOTE | 2020-03-13 09:50 | RAD_ITS ---
STUDY: X-RAY - ABDOMEN/PELVIS REASON FOR EXAM: Female, 80 years old. UTI, NAUSEA TECHNIQUE: 3 AP views. COMPARISON: None. FINDINGS: Normal visualized lung bases. There is an abundance of fecal material throughout the colon. There is no demonstrated free abdominal air. The visualized liver, spleen and kidneys are grossly normal in size and morphology. Normal soft tissue structures. There are diffuse degenerative changes of the visualized lumbar spine. RAD/Abdomen Single View IMPRESSION: No acute findings Retained stool Electronically Signed: Randy Rosa MD at 10:16 EDT , Service support ,
[2020-03-13] MEDS: 0.9% Saline Lock 10 ML Syringe IV ×2 (11:10→21:17)
[2020-03-13 11:11] LABS: Bedside Glucose 170 mg/dL (70-110)
[2020-03-13 11:36] LABS: Mucous, Urine 0 SEEN /hpf (<or=2+)
[2020-03-13 11:40] LABS: Color, Urine Straw (Yellow); Glucose, Dipstick Normal (Normal); Ketone-Dipstick Negative (Negative); Leukocyte Esterase-Dipstick 100 /ul (Negative); Nitrite-Dipstick Negative (Negative); Occult Blood-Urine 25 /ul (Negative); Protein-Dipstick Negative (Negative); Urine Bilirubin Dipstick Negative (Negative); Urine Clarity Clear (Clear); Urine Urobilinogen Normal (Normal)
[2020-03-13] MEDS: Insulin Lispro 100 UNIT/ML INSULN.PEN 13 UNIT SC (11:55)
[2020-03-13 12:05] LABS: Bacteria 2+ /hpf (None Seen); Red Blood Cells-Urine 0-5 SEEN /hpf (0-5); Renal Epithelial Cells 0-5 SEEN /hpf (0-5); White Blood Cells 10-25 SEEN /hpf (0-5)
[2020-03-13 12:06] LABS: Squamous Epithelial Cells - UA 0-5 SEEN /hpf (5-10)
[2020-03-13 14:04] VITALS: BP 138/57; PULSE 65; RESP 18; TEMP 36.1; O2SAT 96
[2020-03-13] MEDS: Electrolyte Solution/Peg's 4000 ML PO (15:34)
--- NOTE | 2020-03-13 15:41 | NURSING ---
Addendum entered by Madelin Monteiro 03/13/20 18:22: SSE given at this time with XL results Original Note: Nulytely started by pt when brought to floor by pharmacy
[2020-03-13 16:21] LABS: Bedside Glucose 107 mg/dL (70-110)
[2020-03-13] MEDS: Tamsulosin HCl 0.4 MG Capsule PO (16:37)
[2020-03-13 21:21] LABS: Bedside Glucose 138 mg/dL (70-110)
[2020-03-13] MEDS: MELATONIN 3 MG TABLET 6 MG PO (21:23)
[2020-03-13] MEDS: Atorvastatin Calcium 80 MG Tablet PO (21:23)
[2020-03-14 04:00] VITALS: BP 152/69; PULSE 101; RESP 18; TEMP 37.9; O2SAT 92
[2020-03-14] MEDS: 0.9% Saline Lock 10 ML Syringe IV (05:33)
[2020-03-14] MEDS: Sucralfate 1 GM Tablet PO ×4 (05:35→21:25)
[2020-03-14] MEDS: Isosorbide Mononitrate 30 MG Tablet PO (05:35)
[2020-03-14] MEDS: Anastrozole 1 MG Tablet PO (05:35)
[2020-03-14] MEDS: Fluconazole 100 MG Tablet 200 MG PO (05:35)
[2020-03-14] MEDS: Pantoprazole Sodium 40 MG Tablet PO ×2 (05:35→17:43)
[2020-03-14 05:36] VITALS: PULSE 101
[2020-03-14] MEDS: Nystatin Powder 15gm Bottle 1 APPLIC TOPICAL ×2 (05:36→21:25)
[2020-03-14] MEDS: Furosemide 40 MG Tablet PO (05:36)
[2020-03-14] MEDS: Metoprolol(XL)Succ 25 MG Tablet PO (05:36)
[2020-03-14] MEDS: Menthol/Lanolin/Calamine/Znox 113 GM Tube 1 APPLIC TOPICAL ×2 (05:36→21:26)
[2020-03-14 06:41] LABS: Bedside Glucose 82 mg/dL (70-110)
[2020-03-14 08:04] LABS: Absolute Neutrophil Count 6.5 X10^3/uL (2.0-7.7); Basophil# 0.04 X10^3/uL; Basophil% 0.4 % (0-1); Eosinophil# 0.15 X10^3/uL; Eosinophils% 1.7 % (0-5); Hematocrit 33.2 % (37-47); Hemoglobin 10.4 g/dL (12.0-15.0); Lymphocyte % 12.1 % (19-41); Mean Corp Hgb Conc 31.3 g/dL (32-36); Mean Corpuscular Hgb 30.2 pg (27.0-32.0); Mean Corpuscular Volume 96.5 fL (81-99); Mean Platelet Vol. 9.9 fl (6.2-12.0); Monocyte# 1.24 X10^3/uL; Monocyte% 13.7 % (0-10); NRBC Flagged by Analyzer 0 % (0-5); Neutrophil # 6.51 X10^3/uL (2.7-7.7); Neutrophil % 71.7 % (47-70); Platelet Count 188 K/mm3 (150-450); RBC Distribution Width CV 17.2 % (11.6-14.6); RBC Distribution Width SD 60.4 fl (35.1-43.9); Red Blood Count 3.44 M/mm3 (4.2-5.4); White Blood Count 9.1 K/mm3 (4.4-11.0)
[2020-03-14] MEDS: Calcium (Elemental) 500 MG Tablet PO (08:14)
[2020-03-14] MEDS: Iron Polysaccharide Complex 150 MG CAPSULE PO ×2 (08:14→17:43)
[2020-03-14] MEDS: predniSONE 5 MG Tablet PO (08:14)
[2020-03-14] MEDS: Aspirin E.C. 81 MG Tablet PO (08:15)
[2020-03-14 08:22] LABS: Anion Gap 0 (5-15); BUN 12 mg/dL (7-18); BUN/Creat Ratio 10.9 RATIO (10-20); Calcium,Total 8.5 mg/dL (8.5-10.1); Chloride 105 mmol/L (98-107); EST Glomerular Filtration Rate 51 mL/min (>60); Est Glom Filt Rate - Afr Amer 62 mL/min (>60); Estimated Creatinine Clearance 37.93 ml/min; Glucose 81 mg/dL (74-106); Potassium 3.7 mmol/L (3.5-5.1); Sodium Level 140 mmol/L (136-145)
[2020-03-14 10:50] LABS: Bedside Glucose 150 mg/dL (70-110)
[2020-03-14] MEDS: Tuberculin,Purif.prot.deriv. 50 TU/ML Vial 5 ML ID (10:51)
--- NOTE | 2020-03-14 11:26 | NURSING ---
Notified Dr. Kaur of pt actively vomiting and unable to keep anything down. Received order for Phenergan 25mg suppository PRN.
[2020-03-14] MEDS: proMETHazine 25 MG Suppos. RECTAL (12:14)
--- NOTE | 2020-03-14 12:20 | NURSING ---
Resident complaining of nausea and vomiting this morning. Dr. Kaur gave order for Phenergan 25mg suppository. Given at this time. Resident tolerated well. Will monitor for effectiveness.
[2020-03-14] MEDS: Insulin Lispro 100 UNIT/ML INSULN.PEN 13 UNIT SC ×2 (13:32→17:54)
[2020-03-14 16:00] VITALS: BP 134/78; PULSE 93; RESP 20; TEMP 36.6; O2SAT 88
[2020-03-14] MEDS: proMETHazine 25 MG Tablet PO (16:55)
[2020-03-14 16:56] LABS: Bedside Glucose 158 mg/dL (70-110)
[2020-03-14] MEDS: Tamsulosin HCl 0.4 MG Capsule PO (17:43)
[2020-03-14] MEDS: Polyethylene Glycol 3350 17 GM PACKET PO (17:43)
[2020-03-14] MEDS: Senna/Docusate Sodium 1 Tablet PO (17:43)
[2020-03-14 21:16] LABS: Bedside Glucose 154 mg/dL (70-110)
[2020-03-14] MEDS: MELATONIN 3 MG TABLET 6 MG PO (21:25)
[2020-03-14] MEDS: Atorvastatin Calcium 80 MG Tablet PO (21:25)
[2020-03-15 05:05] VITALS: BP 133/55; PULSE 85; RESP 20; TEMP 36.7; O2SAT 91
[2020-03-15 05:06] LABS: Bedside Glucose 109 mg/dL (70-110)
[2020-03-15] MEDS: proMETHazine 25 MG Suppos. RECTAL (05:15)
[2020-03-15] MEDS: Menthol/Lanolin/Calamine/Znox 113 GM Tube 1 APPLIC TOPICAL ×2 (05:15→21:49)
[2020-03-15] MEDS: Nystatin Powder 15gm Bottle 1 APPLIC TOPICAL ×2 (05:15→21:50)
[2020-03-15 06:13] VITALS: BP 133/55; PULSE 85
[2020-03-15] MEDS: Metoprolol(XL)Succ 25 MG Tablet PO (06:13)
[2020-03-15] MEDS: Fluconazole 100 MG Tablet 200 MG PO (06:13)
[2020-03-15] MEDS: Anastrozole 1 MG Tablet PO (06:13)
[2020-03-15] MEDS: Sucralfate 1 GM Tablet PO ×4 (06:13→21:38)
[2020-03-15] MEDS: Senna/Docusate Sodium 1 Tablet PO ×2 (06:13→17:26)
[2020-03-15] MEDS: Pantoprazole Sodium 40 MG Tablet PO ×2 (06:14→17:27)
[2020-03-15] MEDS: Isosorbide Mononitrate 30 MG Tablet PO (06:14)
[2020-03-15 06:31] LABS: Bedside Glucose 103 mg/dL (70-110)
[2020-03-15] MEDS: Calcium (Elemental) 500 MG Tablet PO (08:19)
[2020-03-15] MEDS: predniSONE 5 MG Tablet PO (08:19)
[2020-03-15] MEDS: Iron Polysaccharide Complex 150 MG CAPSULE PO ×2 (08:19→17:26)
[2020-03-15] MEDS: Insulin Lispro 100 UNIT/ML INSULN.PEN 13 UNIT SC ×2 (08:19→12:06)
[2020-03-15] MEDS: Aspirin E.C. 81 MG Tablet PO (08:19)
[2020-03-15 11:05] LABS: Bedside Glucose 154 mg/dL (70-110)
[2020-03-15] MEDS: proMETHazine 25 MG Tablet PO (11:21)
[2020-03-15 11:24] VITALS: PULSE 77; RESP 20; O2SAT 91
[2020-03-15] MEDS: 0.9% Saline Lock 10 ML Syringe IV (12:10)
[2020-03-15 14:11] VITALS: BP 128/68; PULSE 77; RESP 20; TEMP 36.6; O2SAT 91
[2020-03-15 17:15] LABS: Bedside Glucose 144 mg/dL (70-110)
[2020-03-15] MEDS: Ciprofloxacin 250 MG Tablet PO (17:26)
[2020-03-15] MEDS: Polyethylene Glycol 3350 17 GM PACKET PO (17:27)
[2020-03-15] MEDS: Tamsulosin HCl 0.4 MG Capsule PO (17:27)
[2020-03-15] MEDS: Insulin Lispro 100 UNIT/ML INSULN.PEN 10 UNIT SC (17:50)
[2020-03-15 21:06] LABS: Bedside Glucose 183 mg/dL (70-110)
[2020-03-15] MEDS: MELATONIN 3 MG TABLET 6 MG PO (21:38)
[2020-03-15] MEDS: Atorvastatin Calcium 80 MG Tablet PO (21:38)
[2020-03-16 04:00] VITALS: BP 154/75; PULSE 96; RESP 14; TEMP 36.7; O2SAT 93
[2020-03-16 06:20] LABS: Bedside Glucose 143 mg/dL (70-110)
[2020-03-16] MEDS: Ciprofloxacin 250 MG Tablet PO ×2 (06:31→16:36)
[2020-03-16] MEDS: Isosorbide Mononitrate 30 MG Tablet PO (06:31)
[2020-03-16] MEDS: Senna/Docusate Sodium 1 Tablet PO ×2 (06:31→16:35)
[2020-03-16] MEDS: Pantoprazole Sodium 40 MG Tablet PO ×2 (06:31→16:37)
[2020-03-16] MEDS: Anastrozole 1 MG Tablet PO (06:43)
[2020-03-16 06:45] VITALS: BP 154/75; PULSE 96
[2020-03-16] MEDS: Metoprolol(XL)Succ 25 MG Tablet PO (06:45)
[2020-03-16] MEDS: Menthol/Lanolin/Calamine/Znox 113 GM Tube 1 APPLIC TOPICAL ×2 (06:45→22:01)
[2020-03-16] MEDS: Nystatin Powder 15gm Bottle 1 APPLIC TOPICAL ×2 (06:46→22:01)
[2020-03-16] MEDS: Sucralfate 1 GM Tablet PO ×4 (08:11→22:04)
[2020-03-16] MEDS: Aspirin E.C. 81 MG Tablet PO (08:11)
[2020-03-16] MEDS: predniSONE 5 MG Tablet PO (08:11)
[2020-03-16] MEDS: Insulin Lispro 100 UNIT/ML INSULN.PEN 10 UNIT SC ×3 (08:11→17:43)
[2020-03-16] MEDS: Iron Polysaccharide Complex 150 MG CAPSULE PO ×2 (08:11→16:37)
[2020-03-16] MEDS: Calcium (Elemental) 500 MG Tablet PO (09:12)
[2020-03-16 11:10] LABS: Bedside Glucose 265 mg/dL (70-110)
--- NOTE | 2020-03-16 11:10 | NURSING ---
SITTING UP IN CHAIR. R' DENIES ANY N/V. ABLE TO TAKE CARAFATE W/O PROBLEMS. WILL CONT' TO MONITOR.
--- NOTE | 2020-03-16 13:16 | NURSING ---
CALLED SON WITH DAILY UPDATE.
[2020-03-16 14:28] VITALS: BP 136/65; PULSE 79; RESP 14; TEMP 37.1; O2SAT 94
[2020-03-16 16:35] LABS: Bedside Glucose 387 mg/dL (70-110)
[2020-03-16] MEDS: Polyethylene Glycol 3350 17 GM PACKET PO (16:36)
[2020-03-16] MEDS: Tamsulosin HCl 0.4 MG Capsule PO (16:38)
[2020-03-16] MEDS: 0.9% Saline Lock 10 ML Syringe IV (17:32)
--- NOTE | 2020-03-16 17:40 | NURSING ---
NOTIFIED DR. BRENNER OF BS 387. N.O. INCREASE LANTUS AND HUMALOG.
[2020-03-16 21:51] LABS: Bedside Glucose 393 mg/dL (70-110)
[2020-03-16] MEDS: MELATONIN 3 MG TABLET 6 MG PO (22:04)
[2020-03-16] MEDS: Atorvastatin Calcium 80 MG Tablet PO (22:04)
[2020-03-17 02:24] VITALS: BP 147/54; PULSE 96; RESP 18; TEMP 37.1; O2SAT 92
[2020-03-17] MEDS: proMETHazine 25 MG Suppos. RECTAL (02:33)
[2020-03-17 06:12] VITALS: PULSE 89
[2020-03-17] MEDS: Sucralfate 1 GM Tablet PO ×4 (06:12→20:38)
[2020-03-17] MEDS: Polyethylene Glycol 3350 17 GM PACKET PO ×2 (06:12→17:51)
[2020-03-17] MEDS: Menthol/Lanolin/Calamine/Znox 113 GM Tube 1 APPLIC TOPICAL ×2 (06:12→20:37)
[2020-03-17] MEDS: Ciprofloxacin 250 MG Tablet PO ×2 (06:12→16:09)
[2020-03-17] MEDS: Pantoprazole Sodium 40 MG Tablet PO ×2 (06:12→17:51)
[2020-03-17] MEDS: Metoprolol(XL)Succ 25 MG Tablet PO (06:12)
[2020-03-17] MEDS: Anastrozole 1 MG Tablet PO (06:12)
[2020-03-17] MEDS: Senna/Docusate Sodium 1 Tablet PO ×2 (06:12→17:51)
[2020-03-17] MEDS: Isosorbide Mononitrate 30 MG Tablet PO (06:12)
[2020-03-17] MEDS: Nystatin Powder 15gm Bottle 1 APPLIC TOPICAL ×2 (06:13→20:39)
[2020-03-17 06:36] LABS: Bedside Glucose 253 mg/dL (70-110)
[2020-03-17] MEDS: predniSONE 5 MG Tablet PO (08:05)
[2020-03-17] MEDS: Iron Polysaccharide Complex 150 MG CAPSULE PO ×2 (08:05→17:50)
[2020-03-17] MEDS: Aspirin E.C. 81 MG Tablet PO (08:05)
[2020-03-17] MEDS: Calcium (Elemental) 500 MG Tablet PO (08:05)
[2020-03-17] MEDS: Insulin Lispro 100 UNIT/ML INSULN.PEN 17 UNIT SC ×3 (08:16→17:49)
[2020-03-17 11:01] LABS: Bedside Glucose 170 mg/dL (70-110)
[2020-03-17] MEDS: NYSTATIN 500,000 UNIT/5 ML UDC 500000 UNIT PO ×3 (13:08→20:39)
[2020-03-17 14:00] VITALS: BP 131/69; PULSE 79; RESP 14; TEMP 36.7; O2SAT 95
--- NOTE | 2020-03-17 14:38 | NURSING ---
Unable to reach spouse or son for daily update.
[2020-03-17 16:46] LABS: Bedside Glucose 164 mg/dL (70-110)
[2020-03-17] MEDS: Tamsulosin HCl 0.4 MG Capsule PO (17:50)
[2020-03-17] MEDS: MELATONIN 3 MG TABLET 6 MG PO (20:38)
[2020-03-17] MEDS: Atorvastatin Calcium 80 MG Tablet PO (20:38)
[2020-03-17 21:26] LABS: Bedside Glucose 130 mg/dL (70-110)
[2020-03-18 05:00] VITALS: BP 140/71; PULSE 88; RESP 18; TEMP 37.1; O2SAT 93
[2020-03-18] MEDS: Polyethylene Glycol 3350 17 GM PACKET PO ×2 (05:05→17:25)
[2020-03-18 05:06] VITALS: PULSE 88
[2020-03-18] MEDS: Menthol/Lanolin/Calamine/Znox 113 GM Tube 1 APPLIC TOPICAL ×2 (05:06→21:18)
[2020-03-18] MEDS: Isosorbide Mononitrate 30 MG Tablet PO (05:06)
[2020-03-18] MEDS: Senna/Docusate Sodium 1 Tablet PO ×2 (05:06→17:25)
[2020-03-18] MEDS: NYSTATIN 500,000 UNIT/5 ML UDC 500000 UNIT PO ×4 (05:06→21:15)
[2020-03-18] MEDS: Metoprolol(XL)Succ 25 MG Tablet PO (05:06)
[2020-03-18] MEDS: Ciprofloxacin 250 MG Tablet PO ×2 (05:06→17:24)
[2020-03-18] MEDS: Pantoprazole Sodium 40 MG Tablet PO ×2 (05:06→17:25)
[2020-03-18] MEDS: Anastrozole 1 MG Tablet PO (05:06)
[2020-03-18] MEDS: Sucralfate 1 GM Tablet PO ×4 (05:06→21:15)
[2020-03-18] MEDS: Nystatin Powder 15gm Bottle 1 APPLIC TOPICAL ×2 (05:07→21:17)
[2020-03-18 06:31] LABS: Bedside Glucose 117 mg/dL (70-110)
[2020-03-18] MEDS: Aspirin E.C. 81 MG Tablet PO (08:18)
[2020-03-18] MEDS: predniSONE 5 MG Tablet PO (08:18)
[2020-03-18] MEDS: Iron Polysaccharide Complex 150 MG CAPSULE PO ×2 (08:18→17:23)
[2020-03-18] MEDS: Calcium (Elemental) 500 MG Tablet PO (08:18)
[2020-03-18] MEDS: Insulin Lispro 100 UNIT/ML INSULN.PEN 17 UNIT SC ×3 (08:18→17:22)
--- NOTE | 2020-03-18 08:52 | MDS.RN ---
Information for the mds was obtained from review of the clinical record, interview of resident, staff, and direct observation of resident's care.
[2020-03-18 11:10] LABS: Bedside Glucose 141 mg/dL (70-110)
[2020-03-18 13:49] VITALS: BP 141/71; PULSE 96; RESP 14; TEMP 36.4; O2SAT 97
[2020-03-18 16:50] LABS: Bedside Glucose 217 mg/dL (70-110)
[2020-03-18] MEDS: Tamsulosin HCl 0.4 MG Capsule PO (17:25)
[2020-03-18] MEDS: MELATONIN 3 MG TABLET 6 MG PO (21:15)
[2020-03-18] MEDS: Atorvastatin Calcium 80 MG Tablet PO (21:15)
[2020-03-18 21:21] LABS: Bedside Glucose 179 mg/dL (70-110)
[2020-03-19 04:59] VITALS: BP 131/54; PULSE 83; RESP 18; TEMP 36.8; O2SAT 92
[2020-03-19 05:03] VITALS: BP 131/54; PULSE 83
[2020-03-19] MEDS: Metoprolol(XL)Succ 25 MG Tablet PO (05:03)
[2020-03-19] MEDS: NYSTATIN 500,000 UNIT/5 ML UDC 500000 UNIT PO ×4 (05:03→21:45)
[2020-03-19] MEDS: Pantoprazole Sodium 40 MG Tablet PO ×2 (05:03→18:01)
[2020-03-19] MEDS: Isosorbide Mononitrate 30 MG Tablet PO (05:04)
[2020-03-19] MEDS: Anastrozole 1 MG Tablet PO (05:04)
[2020-03-19] MEDS: Senna/Docusate Sodium 1 Tablet PO ×2 (05:04→18:02)
[2020-03-19] MEDS: Sucralfate 1 GM Tablet PO ×4 (05:04→21:45)
[2020-03-19] MEDS: Ciprofloxacin 250 MG Tablet PO ×2 (05:04→18:02)
[2020-03-19] MEDS: Acetaminophen 500 MG Tablet 1000 MG PO (05:04)
[2020-03-19] MEDS: Menthol/Lanolin/Calamine/Znox 113 GM Tube 1 APPLIC TOPICAL ×2 (05:05→21:42)
[2020-03-19] MEDS: Nystatin Powder 15gm Bottle 1 APPLIC TOPICAL ×2 (05:05→21:44)
[2020-03-19] MEDS: Polyethylene Glycol 3350 17 GM PACKET PO ×2 (05:08→18:01)
[2020-03-19 06:35] LABS: Bedside Glucose 139 mg/dL (70-110)
[2020-03-19] MEDS: Insulin Lispro 100 UNIT/ML INSULN.PEN 17 UNIT SC ×2 (08:35→11:49)
[2020-03-19] MEDS: Aspirin E.C. 81 MG Tablet PO (08:35)
[2020-03-19] MEDS: Calcium (Elemental) 500 MG Tablet PO (08:35)
[2020-03-19] MEDS: Iron Polysaccharide Complex 150 MG CAPSULE PO ×2 (08:35→16:21)
[2020-03-19 10:56] LABS: Bedside Glucose 246 mg/dL (70-110)
--- NOTE | 2020-03-19 11:30 | NURSING ---
Daily update provided to sonYevgeniy. Unable to reach , Moises.
[2020-03-19 14:24] VITALS: BP 119/51; PULSE 78; RESP 14; TEMP 35.7; O2SAT 96
[2020-03-19] MEDS: Tamsulosin HCl 0.4 MG Capsule PO (16:21)
[2020-03-19 16:51] LABS: Bedside Glucose 82 mg/dL (70-110)
[2020-03-19 21:40] LABS: Bedside Glucose 201 mg/dL (70-110)
[2020-03-19] MEDS: Carbamide Peroxide 15 ML Bottle 5 DRP OTIC (21:44)
[2020-03-19] MEDS: Atorvastatin Calcium 80 MG Tablet PO (21:45)
[2020-03-19] MEDS: MELATONIN 3 MG TABLET 6 MG PO (21:46)
[2020-03-20] MEDS: Acetaminophen 500 MG Tablet 1000 MG PO (00:30)
[2020-03-20 02:31] VITALS: BP 147/70; PULSE 68; RESP 15; TEMP 36.6; O2SAT 95
[2020-03-20] MEDS: proCHLORPERazine 5 MG Tablet 10 MG PO (02:51)
[2020-03-20] MEDS: Menthol/Lanolin/Calamine/Znox 113 GM Tube 1 APPLIC TOPICAL ×2 (05:14→21:56)
[2020-03-20] MEDS: Carbamide Peroxide 15 ML Bottle 5 DRP OTIC ×3 (05:14→22:03)
[2020-03-20 05:15] VITALS: BP 147/70; PULSE 68
[2020-03-20] MEDS: Isosorbide Mononitrate 30 MG Tablet PO (05:15)
[2020-03-20] MEDS: Polyethylene Glycol 3350 17 GM PACKET PO ×2 (05:15→18:00)
[2020-03-20] MEDS: Metoprolol(XL)Succ 25 MG Tablet PO (05:15)
[2020-03-20] MEDS: NYSTATIN 500,000 UNIT/5 ML UDC 500000 UNIT PO ×4 (05:15→21:56)
[2020-03-20] MEDS: Senna/Docusate Sodium 1 Tablet PO ×2 (05:15→18:00)
[2020-03-20] MEDS: Sucralfate 1 GM Tablet PO ×4 (05:15→22:03)
[2020-03-20] MEDS: Pantoprazole Sodium 40 MG Tablet PO ×2 (05:15→18:00)
[2020-03-20] MEDS: Ciprofloxacin 250 MG Tablet PO ×2 (05:16→18:00)
[2020-03-20] MEDS: Anastrozole 1 MG Tablet PO (05:16)
[2020-03-20] MEDS: Nystatin Powder 15gm Bottle 1 APPLIC TOPICAL ×2 (05:18→22:01)
[2020-03-20 06:15] LABS: Bedside Glucose 174 mg/dL (70-110)
[2020-03-20] MEDS: Insulin Lispro 100 UNIT/ML INSULN.PEN 13 UNIT SC ×3 (08:20→18:02)
[2020-03-20] MEDS: Iron Polysaccharide Complex 150 MG CAPSULE PO ×2 (08:20→18:00)
[2020-03-20] MEDS: Aspirin E.C. 81 MG Tablet PO (08:20)
[2020-03-20] MEDS: Calcium (Elemental) 500 MG Tablet PO (08:21)
[2020-03-20 11:06] LABS: Bedside Glucose 202 mg/dL (70-110)
[2020-03-20 13:26] VITALS: BP 128/60; PULSE 97; RESP 18; TEMP 36.7; O2SAT 92
[2020-03-20 16:56] LABS: Bedside Glucose 207 mg/dL (70-110)
[2020-03-20] MEDS: Tamsulosin HCl 0.4 MG Capsule PO (18:00)
[2020-03-20 21:30] LABS: Bedside Glucose 254 mg/dL (70-110)
[2020-03-20] MEDS: Atorvastatin Calcium 80 MG Tablet PO (21:59)
[2020-03-20] MEDS: MELATONIN 3 MG TABLET 6 MG PO (21:59)
[2020-03-21] MEDS: proCHLORPERazine 5 MG Tablet 10 MG PO (03:21)
[2020-03-21 06:22] VITALS: BP 145/63; PULSE 93; RESP 15; TEMP 36.9; O2SAT 92
[2020-03-21 06:26] VITALS: BP 145/63; PULSE 93
[2020-03-21] MEDS: Polyethylene Glycol 3350 17 GM PACKET PO ×2 (06:26→17:24)
[2020-03-21] MEDS: Ciprofloxacin 250 MG Tablet PO ×2 (06:26→17:24)
[2020-03-21] MEDS: Senna/Docusate Sodium 1 Tablet PO ×2 (06:26→17:24)
[2020-03-21] MEDS: Metoprolol(XL)Succ 25 MG Tablet PO (06:26)
[2020-03-21] MEDS: Isosorbide Mononitrate 30 MG Tablet PO (06:27)
[2020-03-21] MEDS: Anastrozole 1 MG Tablet PO (06:27)
[2020-03-21] MEDS: Carbamide Peroxide 15 ML Bottle 5 DRP OTIC ×3 (06:27→21:01)
[2020-03-21] MEDS: Pantoprazole Sodium 40 MG Tablet PO ×2 (06:27→17:24)
[2020-03-21] MEDS: NYSTATIN 500,000 UNIT/5 ML UDC 500000 UNIT PO ×4 (06:27→21:00)
[2020-03-21] MEDS: Sucralfate 1 GM Tablet PO ×4 (06:27→21:00)
[2020-03-21] MEDS: Menthol/Lanolin/Calamine/Znox 113 GM Tube 1 APPLIC TOPICAL ×2 (06:28→21:00)
[2020-03-21] MEDS: Nystatin Powder 15gm Bottle 1 APPLIC TOPICAL ×2 (06:29→21:00)
[2020-03-21 06:31] LABS: Bedside Glucose 153 mg/dL (70-110)
[2020-03-21] MEDS: Insulin Lispro 100 UNIT/ML INSULN.PEN 13 UNIT SC ×3 (08:20→18:14)
[2020-03-21] MEDS: Calcium (Elemental) 500 MG Tablet PO (08:21)
[2020-03-21] MEDS: Aspirin E.C. 81 MG Tablet PO (08:21)
[2020-03-21] MEDS: Iron Polysaccharide Complex 150 MG CAPSULE PO ×2 (08:21→17:24)
[2020-03-21 08:25] LABS: Absolute Lymphocyte Count 1.59 X10^3/uL (0.83-4.51); Absolute Neutrophil Count 4.4 X10^3/uL (2.0-7.7); Basophil# 0.08 X10^3/uL; Basophil% 1.1 % (0-1); Eosinophil# 0.21 X10^3/uL; Hematocrit 36.3 % (37-47); Hemoglobin 11.5 g/dL (12.0-15.0); Lymphocyte # 1.59 X10^3/ul (4.0); Lymphocyte % 22.6 % (19-41); Mean Corp Hgb Conc 31.7 g/dL (32-36); Mean Corpuscular Hgb 30.1 pg (27.0-32.0); Mean Platelet Vol. 9.8 fl (6.2-12.0); Monocyte# 0.67 X10^3/uL; Monocyte% 9.5 % (0-10); NRBC Flagged by Analyzer 0 % (0-5); Neutrophil % 62.5 % (47-70); Platelet Count 227 K/mm3 (150-450); RBC Distribution Width CV 15.4 % (11.6-14.6); RBC Distribution Width SD 53.2 fl (35.1-43.9); Red Blood Count 3.82 M/mm3 (4.2-5.4)
[2020-03-21 08:38] LABS: Anion Gap 3 (5-15); BUN 13 mg/dL (7-18); BUN/Creat Ratio 11.4 RATIO (10-20); Chloride 109 mmol/L (98-107); Creatinine, Serum 1.14 mg/dL (0.55-1.02); EST Glomerular Filtration Rate 49 mL/min (>60); Est Glom Filt Rate - Afr Amer 59 mL/min (>60); Glucose 154 mg/dL (74-106); Potassium 4.1 mmol/L (3.5-5.1); Sodium Level 142 mmol/L (136-145)
[2020-03-21 11:35] LABS: Bedside Glucose 153 mg/dL (70-110)
[2020-03-21 16:26] LABS: Bedside Glucose 193 mg/dL (70-110)
[2020-03-21] MEDS: Tamsulosin HCl 0.4 MG Capsule PO (17:24)
[2020-03-21 18:19] VITALS: BP 134/58; PULSE 84; RESP 20; TEMP 36.3; O2SAT 90
[2020-03-21] MEDS: Atorvastatin Calcium 80 MG Tablet PO (21:00)
[2020-03-21] MEDS: MELATONIN 3 MG TABLET 6 MG PO (21:00)
[2020-03-21 21:20] LABS: Bedside Glucose 196 mg/dL (70-110)
[2020-03-22] MEDS: proCHLORPERazine 5 MG Tablet 10 MG PO ×2 (02:51→18:43)
[2020-03-22 02:55] VITALS: BP 125/86; PULSE 86; RESP 21; TEMP 36.6; O2SAT 95
[2020-03-22] MEDS: Polyethylene Glycol 3350 17 GM PACKET PO ×2 (04:56→17:21)
[2020-03-22] MEDS: Carbamide Peroxide 15 ML Bottle 5 DRP OTIC ×3 (04:57→21:36)
[2020-03-22 04:58] VITALS: PULSE 90
[2020-03-22] MEDS: Isosorbide Mononitrate 30 MG Tablet PO (04:58)
[2020-03-22] MEDS: Menthol/Lanolin/Calamine/Znox 113 GM Tube 1 APPLIC TOPICAL ×2 (04:58→21:37)
[2020-03-22] MEDS: Ciprofloxacin 250 MG Tablet PO ×2 (04:58→17:21)
[2020-03-22] MEDS: Senna/Docusate Sodium 1 Tablet PO ×2 (04:58→17:21)
[2020-03-22] MEDS: Anastrozole 1 MG Tablet PO (04:58)
[2020-03-22] MEDS: Metoprolol(XL)Succ 25 MG Tablet PO (04:58)
[2020-03-22] MEDS: Pantoprazole Sodium 40 MG Tablet PO ×2 (04:58→17:21)
[2020-03-22] MEDS: Sucralfate 1 GM Tablet PO ×4 (04:58→21:36)
[2020-03-22] MEDS: Nystatin Powder 15gm Bottle 1 APPLIC TOPICAL ×2 (04:59→21:37)
[2020-03-22] MEDS: NYSTATIN 500,000 UNIT/5 ML UDC 500000 UNIT PO ×4 (04:59→21:37)
[2020-03-22 06:21] LABS: Bedside Glucose 200 mg/dL (70-110)
[2020-03-22] MEDS: Insulin Lispro 100 UNIT/ML INSULN.PEN 13 UNIT SC ×3 (08:24→17:43)
[2020-03-22] MEDS: Calcium (Elemental) 500 MG Tablet PO (08:25)
[2020-03-22] MEDS: Iron Polysaccharide Complex 150 MG CAPSULE PO ×2 (08:25→16:08)
[2020-03-22] MEDS: Aspirin E.C. 81 MG Tablet PO (08:25)
[2020-03-22 11:01] LABS: Bedside Glucose 141 mg/dL (70-110)
[2020-03-22 11:15] VITALS: PULSE 97; RESP 20; O2SAT 92
--- NOTE | 2020-03-22 12:30 | NURSING ---
pt unwilling to sit up in chair for more than an hour today. This nurse offered to position pillows to make pt more comfortable, but pt refused. pt unable to stand with assist from staff. Rosa required to transfer pt back to bed.
--- NOTE | 2020-03-22 14:03 | NURSING ---
Update provided to yany.
[2020-03-22 14:53] VITALS: BP 112/64; PULSE 97; RESP 20; TEMP 36.8; O2SAT 92
[2020-03-22] MEDS: Tamsulosin HCl 0.4 MG Capsule PO (16:08)
[2020-03-22 16:41] LABS: Bedside Glucose 171 mg/dL (70-110)
[2020-03-22 21:31] LABS: Bedside Glucose 222 mg/dL (70-110)
[2020-03-22] MEDS: MELATONIN 3 MG TABLET 6 MG PO (21:37)
[2020-03-22] MEDS: Atorvastatin Calcium 80 MG Tablet PO (21:37)
[2020-03-23 04:39] VITALS: BP 135/58; PULSE 86; RESP 16; TEMP 36.6; O2SAT 93
[2020-03-23] MEDS: Polyethylene Glycol 3350 17 GM PACKET PO ×2 (04:43→17:13)
[2020-03-23] MEDS: Anastrozole 1 MG Tablet PO (04:47)
[2020-03-23] MEDS: Menthol/Lanolin/Calamine/Znox 113 GM Tube 1 APPLIC TOPICAL ×2 (04:48→21:49)
[2020-03-23] MEDS: Carbamide Peroxide 15 ML Bottle 5 DRP OTIC ×3 (04:48→21:50)
[2020-03-23] MEDS: Isosorbide Mononitrate 30 MG Tablet PO (04:48)
[2020-03-23] MEDS: NYSTATIN 500,000 UNIT/5 ML UDC 500000 UNIT PO ×4 (04:48→21:51)
[2020-03-23 04:49] VITALS: PULSE 86
[2020-03-23] MEDS: Pantoprazole Sodium 40 MG Tablet PO ×2 (04:49→17:13)
[2020-03-23] MEDS: Senna/Docusate Sodium 1 Tablet PO ×2 (04:49→17:13)
[2020-03-23] MEDS: Metoprolol(XL)Succ 25 MG Tablet PO (04:49)
[2020-03-23] MEDS: Nystatin Powder 15gm Bottle 1 APPLIC TOPICAL ×2 (04:50→21:49)
[2020-03-23] MEDS: Sucralfate 1 GM Tablet PO ×4 (04:50→21:51)
[2020-03-23 06:25] LABS: Bedside Glucose 219 mg/dL (70-110)
[2020-03-23] MEDS: Iron Polysaccharide Complex 150 MG CAPSULE PO ×2 (09:58→16:32)
[2020-03-23] MEDS: Calcium (Elemental) 500 MG Tablet PO (09:58)
[2020-03-23] MEDS: Aspirin E.C. 81 MG Tablet PO (09:59)
[2020-03-23] MEDS: Insulin Lispro 100 UNIT/ML INSULN.PEN 13 UNIT SC ×3 (09:59→17:11)
[2020-03-23 11:00] LABS: Bedside Glucose 370 mg/dL (70-110)
--- NOTE | 2020-03-23 14:13 | CHAPLAIN ---
Type of Pastoral Visit ___ Initial Visit _x__ Follow-up Visit ___ On-call Visit ___ General Patient Visit ___ Spiritual Assessment ___ Family Conference ___ Bereavement ___ Rapid Response ___ Code Blue ___ Other (describe below) Pastoral Care Referral From _x__ Patient ___ Family ___ Nurse ___ Physician ___ Occ Therapist ___ Sound Effects Supervisor ___ Other (describe below) Sacrament/Intervention _x__ Active listening ___ Anointing ___ Shinto ___ Bereavement ___ Communion _x__ Simran exploration ___ ___ Life review _x__ Prayer ___ Reconciliation ___ Sacrament of Sick _x__ Supportive presence ___ Wedding ___ Other (describe below) Pastoral Comments patient is welcoming of visit; pt is in bed but awake and alert; pt says she cannot read anything these days due to medications; pt is welcoming of scripture passages being read to her; pt states she is having visit with spouse and son david and looking forward to this very much; pt welcomes prayer and presence of shiftman
[2020-03-23 15:17] VITALS: BP 142/68; PULSE 97; RESP 20; TEMP 36.3; O2SAT 91
[2020-03-23 16:25] LABS: Bedside Glucose 218 mg/dL (70-110)
[2020-03-23] MEDS: Tamsulosin HCl 0.4 MG Capsule PO (16:33)
[2020-03-23 21:31] LABS: Bedside Glucose 171 mg/dL (70-110)
[2020-03-23] MEDS: MELATONIN 3 MG TABLET 6 MG PO (21:52)
[2020-03-23] MEDS: Atorvastatin Calcium 80 MG Tablet PO (21:52)
[2020-03-24 06:13] VITALS: BP 131/75; PULSE 92; RESP 16; TEMP 36.4; O2SAT 92
[2020-03-24 06:16] VITALS: BP 131/75; PULSE 93
[2020-03-24] MEDS: NYSTATIN 500,000 UNIT/5 ML UDC 500000 UNIT PO ×3 (06:16→16:52)
[2020-03-24] MEDS: Pantoprazole Sodium 40 MG Tablet PO ×2 (06:16→16:52)
[2020-03-24] MEDS: Sucralfate 1 GM Tablet PO ×4 (06:16→20:53)
[2020-03-24] MEDS: Polyethylene Glycol 3350 17 GM PACKET PO ×2 (06:16→16:52)
[2020-03-24] MEDS: Senna/Docusate Sodium 1 Tablet PO ×2 (06:16→16:52)
[2020-03-24] MEDS: Isosorbide Mononitrate 30 MG Tablet PO (06:16)
[2020-03-24] MEDS: Metoprolol(XL)Succ 25 MG Tablet PO (06:16)
[2020-03-24] MEDS: Menthol/Lanolin/Calamine/Znox 113 GM Tube 1 APPLIC TOPICAL ×2 (06:17→20:53)
[2020-03-24] MEDS: Anastrozole 1 MG Tablet PO (06:17)
[2020-03-24] MEDS: Carbamide Peroxide 15 ML Bottle 5 DRP OTIC ×3 (06:17→20:54)
[2020-03-24] MEDS: Nystatin Powder 15gm Bottle 1 APPLIC TOPICAL ×2 (06:18→20:58)
[2020-03-24 06:25] LABS: Bedside Glucose 146 mg/dL (70-110)
[2020-03-24] MEDS: Aspirin E.C. 81 MG Tablet PO (08:00)
[2020-03-24] MEDS: Insulin Lispro 100 UNIT/ML INSULN.PEN 13 UNIT SC ×3 (08:00→17:32)
[2020-03-24] MEDS: Calcium (Elemental) 500 MG Tablet PO (08:00)
[2020-03-24] MEDS: Iron Polysaccharide Complex 150 MG CAPSULE PO ×2 (08:01→16:52)
[2020-03-24 11:11] LABS: Bedside Glucose 253 mg/dL (70-110)
[2020-03-24 14:10] VITALS: BP 138/92; PULSE 88; RESP 20; TEMP 36.3; O2SAT 93
--- NOTE | 2020-03-24 14:14 | CASEMGMT ---
Social Work Spoke with patient to discuss progress and alternative DC plan. Pt is adamant about returning home, instead of transferring to SNF. However, discussed the insurance may not approve time for the pt to progress to a safe enough level to return home. Encouraged pt to consider alternative DC options. Explored private duty aides - pt unsure of finances and gave permission for SW to contact son. Spoke with son at length to discuss alternative DC plans, realistic DC and finances. Son understands pt does not want to go to a SNF but that it may need to happen. He works and so does - she will be at home alone during the day. Pt requires 24/7 supervision and physical assist at this time. Son stated pt is just getting by financially so paying privately is not an option. Explained Medicaid at length. Pt should qualify with her income, but may need QIT. Pt has several life insurance policies, but unsure the value. Explained those policies will need to be liquidated. Son agreed to contact the companies to determine values. Pt already has burial paid for but it [place] state. Discussed the son having the house put in his name - explained pt would not be eligible for Medicaid for another 5 years if that happens. Son would have to buy house from pt at market value in order for it to be in his name. Son understood. Emailed son [employer] valerie to complete. Explained time sensitivity and insurance NRD 03/31 and continued stay is not guaranteed. Son very appreciative of assistance. Will continue to follow. Millie Mann, ROD CELISW
--- NOTE | 2020-03-24 14:41 | NURSING ---
Ears irrigated per order, pt tolerated well
[2020-03-24 16:25] LABS: Bedside Glucose 210 mg/dL (70-110)
[2020-03-24] MEDS: Tamsulosin HCl 0.4 MG Capsule PO (16:52)
[2020-03-24] MEDS: Atorvastatin Calcium 80 MG Tablet PO (20:54)
[2020-03-24] MEDS: MELATONIN 3 MG TABLET 6 MG PO (20:54)
[2020-03-24 21:11] LABS: Bedside Glucose 223 mg/dL (70-110)
--- NOTE | 2020-03-24 21:20 | NURSING ---
pt on phone with son, asked rn to hold phone for her states she cant, asking him to take femla time to take care of her at home, when pt hung up pt states that she doesnt understand why it was so late and she hadnt been washed up reminded her it is 2054. pt thought it was past midnight. bhaskar wraps removed, cath care done, pt aware that rock wool insulator will be in to wash her up. no further requests or concerns voiced
[2020-03-25] MEDS: Carbamide Peroxide 15 ML Bottle 5 DRP OTIC ×3 (05:37→21:25)
[2020-03-25 05:38] VITALS: PULSE 80
[2020-03-25] MEDS: Senna/Docusate Sodium 1 Tablet PO ×2 (05:38→18:09)
[2020-03-25] MEDS: Anastrozole 1 MG Tablet PO (05:38)
[2020-03-25] MEDS: Polyethylene Glycol 3350 17 GM PACKET PO ×2 (05:38→18:09)
[2020-03-25] MEDS: Sucralfate 1 GM Tablet PO ×4 (05:38→21:25)
[2020-03-25] MEDS: Isosorbide Mononitrate 30 MG Tablet PO (05:38)
[2020-03-25] MEDS: Pantoprazole Sodium 40 MG Tablet PO ×2 (05:38→18:09)
[2020-03-25] MEDS: Metoprolol(XL)Succ 25 MG Tablet PO (05:38)
[2020-03-25] MEDS: Menthol/Lanolin/Calamine/Znox 113 GM Tube 1 APPLIC TOPICAL ×2 (05:39→21:29)
[2020-03-25] MEDS: Nystatin Powder 15gm Bottle 1 APPLIC TOPICAL ×2 (05:40→21:29)
[2020-03-25 05:41] VITALS: BP 116/56; PULSE 80; RESP 16; TEMP 36.4; O2SAT 94
[2020-03-25 06:20] LABS: Bedside Glucose 218 mg/dL (70-110)
[2020-03-25] MEDS: Insulin Lispro 100 UNIT/ML INSULN.PEN 13 UNIT SC ×3 (08:24→18:10)
[2020-03-25] MEDS: Aspirin E.C. 81 MG Tablet PO (08:26)
[2020-03-25] MEDS: Iron Polysaccharide Complex 150 MG CAPSULE PO ×2 (08:26→16:00)
[2020-03-25] MEDS: Calcium (Elemental) 500 MG Tablet PO (08:27)
[2020-03-25 11:05] LABS: Bedside Glucose 287 mg/dL (70-110)
[2020-03-25] MEDS: NYSTATIN 500,000 UNIT/5 ML UDC 500000 UNIT PO ×3 (11:51→21:24)
[2020-03-25 12:52] VITALS: BP 140/64; PULSE 84; RESP 16; TEMP 36.6; O2SAT 92
[2020-03-25 12:54] VITALS: PULSE 84; RESP 16; O2SAT 92
[2020-03-25] MEDS: Tamsulosin HCl 0.4 MG Capsule PO (16:18)
[2020-03-25 16:45] LABS: Bedside Glucose 223 mg/dL (70-110)
[2020-03-25 21:10] LABS: Bedside Glucose 260 mg/dL (70-110)
[2020-03-25] MEDS: Acetaminophen 500 MG Tablet 1000 MG PO (21:24)
[2020-03-25] MEDS: MELATONIN 3 MG TABLET 6 MG PO (21:25)
[2020-03-25] MEDS: Atorvastatin Calcium 80 MG Tablet PO (21:25)
[2020-03-26] MEDS: proMETHazine 25 MG Suppos. RECTAL (03:38)
[2020-03-26 03:42] VITALS: BP 140/59; PULSE 93; RESP 17; TEMP 36.6; O2SAT 95
--- NOTE | 2020-03-26 04:00 | NURSING ---
Pt had Lg BM this AM in bedpan. A couple minutes after staff left room pt called out requesting help. Pt stating to be nauseas and noted to have a small amount of yellow vomit on gown. PRN phenergan supp given. Pt stated she felt the head of the bed went down to fast when staff left room earlier. Pt stated she was starting to feel relief. Bowel sounds [id number]. Abd soft, nontender. Pt denied crackers, marya nat or any further needs. Resting in bed with call light in reach.
[2020-03-26 04:06] LABS: Bedside Glucose 269 mg/dL (70-110)
[2020-03-26] MEDS: Carbamide Peroxide 15 ML Bottle 5 DRP OTIC ×3 (06:19→22:15)
[2020-03-26] MEDS: Polyethylene Glycol 3350 17 GM PACKET PO ×2 (06:21→18:16)
[2020-03-26 06:23] VITALS: BP 145/61; PULSE 90
[2020-03-26] MEDS: Isosorbide Mononitrate 30 MG Tablet PO (06:23)
[2020-03-26] MEDS: Pantoprazole Sodium 40 MG Tablet PO ×2 (06:23→16:53)
[2020-03-26] MEDS: Anastrozole 1 MG Tablet PO (06:23)
[2020-03-26] MEDS: Sucralfate 1 GM Tablet PO ×4 (06:23→22:10)
[2020-03-26] MEDS: Senna/Docusate Sodium 1 Tablet PO (06:23)
[2020-03-26] MEDS: Metoprolol(XL)Succ 25 MG Tablet PO (06:23)
[2020-03-26 06:26] LABS: Bedside Glucose 292 mg/dL (70-110)
[2020-03-26] MEDS: Menthol/Lanolin/Calamine/Znox 113 GM Tube 1 APPLIC TOPICAL ×2 (06:27→22:10)
[2020-03-26] MEDS: Nystatin Powder 15gm Bottle 1 APPLIC TOPICAL ×2 (06:27→22:23)
[2020-03-26] MEDS: Calcium (Elemental) 500 MG Tablet PO (08:16)
[2020-03-26] MEDS: Iron Polysaccharide Complex 150 MG CAPSULE PO ×2 (08:16→16:53)
[2020-03-26] MEDS: Aspirin E.C. 81 MG Tablet PO (08:16)
--- NOTE | 2020-03-26 08:50 | NURSING ---
Contacted pharmacy twice requesting Humalog dose be added for morning administration.
[2020-03-26] MEDS: Insulin Lispro 100 UNIT/ML INSULN.PEN 17 UNIT SC (09:20)
--- NOTE | 2020-03-26 09:45 | NURSING ---
SURFACE PLATE INSPECTOR notified this nurse. During transfer patient opened old skin tear to outer left FA, as her arm rubbed against the platform walker she was pressing her arms down on.
--- NOTE | 2020-03-26 10:50 | RAD_ITS ---
STUDY: X-RAY - ABDOMEN/PELVIS REASON FOR EXAM: Female, 80 years old. Vomiting, constipation TECHNIQUE: Two AP supine views of the abdomen and pelvis. COMPARISON: Comparison is made with prior study dated 03/13/2020. FINDINGS: Normal visualized lung bases. There is an abundance of fecal material throughout the colon. The visualized liver, spleen and kidneys are grossly normal in size and morphology. Normal soft tissue structures. There are diffuse degenerative changes of the visualized lumbar spine. RAD/Abdomen Single View IMPRESSION: Large amount of fecal material is seen in the colon. Electronically Signed: Wiliam Hernandez, at 11:36 EDT , Service support ,
[2020-03-26 11:16] LABS: Bedside Glucose 372 mg/dL (70-110)
[2020-03-26] MEDS: Insulin Lispro 100 UNIT/ML INSULN.PEN 20 UNIT SC ×2 (11:50→18:16)
[2020-03-26] MEDS: NYSTATIN 500,000 UNIT/5 ML UDC 500000 UNIT PO (11:51)
--- NOTE | 2020-03-26 13:30 | CASEMGMT ---
Social Work IDT met with patient and via conference call for care plan meeting. Discussed patient's progress in therapy. Pt is Jing to CGA for bed mobility, maxA to put on brace, CGA for sit to stands, and transfers s with FWW, CGA to ambulate 100 ft with FWW. Pt is using 2lb wts for LE exercises. Pt is Jing for toileting - managing clothing, SAB for pericare, modA for LE ADLS due to back precautions, set up for grooming. Pt scored 50/100 on HUSSAIN, and ST to work on cognition, as pt was independent prior for fiances and meds. states he could get a neighbor to assist with finances if she cannot at DC. Pt is out of isolation 04/03, has f/u with surgeon 04/09. Explained Medicare benefit. The goal is for pt to return home at [facility] with . made it clear he wants her to get a strong as possible so she does not have to return. IDT agrees. Will continue to follow. ROD Rivera BIOLOGY SPECIMEN TECHNICIAN
[2020-03-26 14:11] VITALS: BP 133/60; PULSE 73; RESP 14; TEMP 36.1; O2SAT 94
--- NOTE | 2020-03-26 14:46 | NURSING ---
SSE given at this time per order, pt tolerated well
[2020-03-26 16:35] LABS: Bedside Glucose 240 mg/dL (70-110)
[2020-03-26] MEDS: Tamsulosin HCl 0.4 MG Capsule PO (16:53)
[2020-03-26] MEDS: Electrolyte Solution/Peg's 4000 ML PO (18:12)
[2020-03-26] MEDS: Senna/Docusate Sodium 1 Tablet 2 TABLET PO (18:16)
[2020-03-26] MEDS: Lactulose 20 GM/30 ML UDC PO (18:16)
--- NOTE | 2020-03-26 18:23 | NURSING ---
Gerard started when pt returned from family meeting
[2020-03-26 21:16] LABS: Bedside Glucose 240 mg/dL (70-110)
[2020-03-26] MEDS: Atorvastatin Calcium 80 MG Tablet PO (22:09)
[2020-03-26] MEDS: MELATONIN 3 MG TABLET 6 MG PO (22:10)
[2020-03-27] VITALS (7 sets, daily range): BP systolic 126–150; BP diastolic 62–70; PULSE 72–96; RESP 18–20; TEMP 36.2–36.8; O2SAT 76–97
[2020-03-27] MEDS: proMETHazine 25 MG Suppos. RECTAL (01:04)
[2020-03-27] MEDS: Lactulose 20 GM/30 ML UDC PO ×2 (06:33→17:48)
[2020-03-27] MEDS: Isosorbide Mononitrate 30 MG Tablet PO (06:33)
[2020-03-27] MEDS: Polyethylene Glycol 3350 17 GM PACKET PO ×2 (06:33→17:48)
[2020-03-27] MEDS: Senna/Docusate Sodium 1 Tablet 2 TABLET PO ×2 (06:33→17:48)
[2020-03-27] MEDS: Nystatin Powder 15gm Bottle 1 APPLIC TOPICAL ×2 (06:34→21:43)
[2020-03-27] MEDS: Menthol/Lanolin/Calamine/Znox 113 GM Tube 1 APPLIC TOPICAL ×2 (06:34→21:43)
[2020-03-27] MEDS: Pantoprazole Sodium 40 MG Tablet PO ×2 (06:34→17:49)
[2020-03-27] MEDS: Metoprolol(XL)Succ 25 MG Tablet PO (06:34)
[2020-03-27] MEDS: Sucralfate 1 GM Tablet PO ×4 (06:34→21:36)
[2020-03-27] MEDS: Anastrozole 1 MG Tablet PO (06:34)
[2020-03-27 07:01] LABS: Bedside Glucose 170 mg/dL (70-110)
--- NOTE | 2020-03-27 07:28 | RAD_ITS ---
STUDY: X-RAY CHEST REASON FOR EXAM: Female, 80 years old. LOW SPO2, DIM LUNG SOUNDS, UTI/TIA/GENERALIZED WEAKNESS TECHNIQUE: AP and lateral views of the chest. COMPARISON: Comparison is made with prior examination dated 03/02/2020. FINDINGS: Surgical clips are seen in the left axillary region. Stable pleural parenchymal changes at the left lung base. The right lung is clear. Sternal cerclage wires and vascular clips are present from a prior sternotomy and coronary artery bypass graft procedure (CABG). A left-sided ICD is seen. Normal mediastinum and renay. Normal visualized pulmonary arteries. There is atherosclerotic calcification of the aortic arch with tortuosity. Normal visualized thoracic spine. There is degenerative osteoarthritis of the bilateral shoulders. There is no demonstrated abnormality of the visualized soft tissue structures of the upper abdomen. RAD/Chest PA and Lateral IMPRESSION: Stable pleural parenchymal changes at the left lung base. Electronically Signed: Wiliam Hernandez, at 11:05 EDT , Service support ,
--- NOTE | 2020-03-27 07:49 | NURSING ---
At 0630, pt had low spo2 on room air, put on oxygen at 2L NC and only sat at 92%, bumped to 4.5L and sats range btw 93-94%, lung sounds were dim and after rolling over in bed, reassessed LS and they were improved, but sats were not. She was nauseas and vomited most of her meds up. Dr. Kaur notified of complete situation. He ordered CXR, KUB, BMP, CBC. Handed over report and care of patient to day shift RN.
--- NOTE | 2020-03-27 07:55 | RAD_ITS ---
STUDY: X-RAY - ABDOMEN/PELVIS REASON FOR EXAM: Female, 80 years old. VOMITING, UTI/TIA/GENERALIZED WEAKNESS TECHNIQUE: Single AP view of the abdomen / pelvis. COMPARISON: Comparison is made with prior study dated 03/26/2020. FINDINGS: There is an unremarkable bowel gas pattern. The visualized liver, spleen and kidneys are grossly normal in size and morphology. Normal soft tissue structures. There are diffuse degenerative changes of the visualized lumbar spine. RAD/Abdomen Single View (Portable) IMPRESSION: There now is less fecal material within the colon. Electronically Signed: Wiliam Hernandez, at 11:04 EDT , Service support ,
[2020-03-27 08:45] LABS: Absolute Lymphocyte Count 1.62 X10^3/uL (0.83-4.51); Absolute Neutrophil Count 5.1 X10^3/uL (2.0-7.7); Basophil% 1.3 % (0-1); Eosinophil# 0.15 X10^3/uL; Eosinophils% 1.9 % (0-5); Hematocrit 34.6 % (37-47); Hemoglobin 11.1 g/dL (12.0-15.0); Lymphocyte # 1.62 X10^3/ul (4.0); Lymphocyte % 20.7 % (19-41); Mean Corp Hgb Conc 32.1 g/dL (32-36); Mean Corpuscular Hgb 30.2 pg (27.0-32.0); Mean Corpuscular Volume 94.3 fL (81-99); Mean Platelet Vol. 9.8 fl (6.2-12.0); Monocyte# 0.78 X10^3/uL; NRBC Flagged by Analyzer 0 % (0-5); Neutrophil # 5.07 X10^3/uL (2.7-7.7); Neutrophil % 64.8 % (47-70); Platelet Count 240 K/mm3 (150-450); RBC Distribution Width CV 15.1 % (11.6-14.6); RBC Distribution Width SD 52.4 fl (35.1-43.9); Red Blood Count 3.67 M/mm3 (4.2-5.4); White Blood Count 7.8 K/mm3 (4.4-11.0)
--- NOTE | 2020-03-27 08:45 | NURSING ---
Encouraged use of incentive spirometer. Patient verbalizes understanding and demonstrates proper use.
[2020-03-27] MEDS: Aspirin E.C. 81 MG Tablet PO (08:49)
[2020-03-27] MEDS: Insulin Lispro 100 UNIT/ML INSULN.PEN 20 UNIT SC ×2 (08:49→12:08)
[2020-03-27] MEDS: Calcium (Elemental) 500 MG Tablet PO (08:49)
[2020-03-27] MEDS: Iron Polysaccharide Complex 150 MG CAPSULE PO ×2 (08:49→16:16)
[2020-03-27 09:09] LABS: Anion Gap 6 (5-15); BUN 13 mg/dL (7-18); BUN/Creat Ratio 11.5 RATIO (10-20); Calcium,Total 9.1 mg/dL (8.5-10.1); Chloride 106 mmol/L (98-107); Creatinine, Serum 1.13 mg/dL (0.55-1.02); EST Glomerular Filtration Rate 50 mL/min (>60); Est Glom Filt Rate - Afr Amer 60 mL/min (>60); Estimated Creatinine Clearance 36.92 ml/min; Glucose 169 mg/dL (74-106); Potassium 3.9 mmol/L (3.5-5.1); Sodium Level 140 mmol/L (136-145)
[2020-03-27 11:05] LABS: Bedside Glucose 149 mg/dL (70-110)
[2020-03-27] MEDS: Metoclopramide 10 MG Tablet PO ×3 (11:26→21:36)
[2020-03-27] MEDS: NYSTATIN 500,000 UNIT/5 ML UDC 500000 UNIT PO (11:27)
[2020-03-27] MEDS: Tamsulosin HCl 0.4 MG Capsule PO (16:15)
--- NOTE | 2020-03-27 16:29 | NURSING ---
BG=57. Patient provided orange juice and abram doones per her request. Will reassess.
[2020-03-27 16:41] LABS: Bedside Glucose 57 mg/dL (70-110)
--- NOTE | 2020-03-27 16:56 | TELEMED_ITS ---
[facility] has confirmed receipt of a request for visit. This document confirms receipt of the order initiating the consult. To find the results of the consultation, please view the patient's reports for the scanned Telemed Consult.
[2020-03-27 17:10] LABS: Bedside Glucose 101 mg/dL (70-110)
--- NOTE | 2020-03-27 18:17 | NURSING ---
Patient H/P, labs, progress notes, scans and first teleneurology consult. 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
[2020-03-27] MEDS: Acetaminophen 500 MG Tablet 1000 MG PO (18:47)
[2020-03-27 21:26] LABS: Bedside Glucose 215 mg/dL (70-110)
[2020-03-27] MEDS: Azithromycin 250 MG Tablet 500 MG PO (21:36)
[2020-03-27] MEDS: Atorvastatin Calcium 80 MG Tablet PO (21:36)
[2020-03-27] MEDS: traMADol 50 MG Tablet PO (21:36)
[2020-03-27] MEDS: MELATONIN 3 MG TABLET 6 MG PO (21:37)
[2020-03-28] MEDS: Lactulose 20 GM/30 ML UDC PO ×2 (05:05→17:49)
[2020-03-28] MEDS: Senna/Docusate Sodium 1 Tablet 2 TABLET PO ×2 (05:05→17:48)
[2020-03-28] MEDS: Sucralfate 1 GM Tablet PO ×4 (05:05→21:12)
[2020-03-28] MEDS: Polyethylene Glycol 3350 17 GM PACKET PO ×2 (05:05→17:49)
[2020-03-28] MEDS: Pantoprazole Sodium 40 MG Tablet PO ×2 (05:06→17:48)
[2020-03-28] MEDS: Anastrozole 1 MG Tablet PO (05:06)
[2020-03-28] MEDS: Isosorbide Mononitrate 30 MG Tablet PO (05:06)
[2020-03-28 05:07] VITALS: BP 123/63; PULSE 72
[2020-03-28] MEDS: Metoprolol(XL)Succ 25 MG Tablet PO (05:07)
[2020-03-28] MEDS: Nystatin Powder 15gm Bottle 1 APPLIC TOPICAL ×2 (05:07→21:16)
[2020-03-28] MEDS: Menthol/Lanolin/Calamine/Znox 113 GM Tube 1 APPLIC TOPICAL ×2 (05:07→21:16)
[2020-03-28] MEDS: Cefdinir 300 MG Capsule PO ×2 (05:09→17:48)
[2020-03-28] MEDS: Metoclopramide 10 MG Tablet PO ×4 (05:09→21:12)
[2020-03-28 05:24] VITALS: RESP 18; TEMP 36.8; O2SAT 93
[2020-03-28 06:46] LABS: Bedside Glucose 209 mg/dL (70-110)
[2020-03-28 07:00] LABS: Absolute Lymphocyte Count 2.13 X10^3/uL (0.83-4.51); Absolute Neutrophil Count 4.5 X10^3/uL (2.0-7.7); Basophil# 0.11 X10^3/uL; Basophil% 1.4 % (0-1); Eosinophil# 0.26 X10^3/uL; Eosinophils% 3.2 % (0-5); Hematocrit 37.1 % (37-47); Hemoglobin 11.5 g/dL (12.0-15.0); Lymphocyte # 2.13 X10^3/ul (4.0); Lymphocyte % 26.5 % (19-41); Mean Corpuscular Hgb 30.2 pg (27.0-32.0); Mean Corpuscular Volume 97.4 fL (81-99); Mean Platelet Vol. 9.9 fl (6.2-12.0); Monocyte# 0.89 X10^3/uL; Monocyte% 11.1 % (0-10); NRBC Flagged by Analyzer 0 % (0-5); Neutrophil # 4.53 X10^3/uL (2.7-7.7); Neutrophil % 56.3 % (47-70); Platelet Count 230 K/mm3 (150-450); RBC Distribution Width SD 53.6 fl (35.1-43.9); Red Blood Count 3.81 M/mm3 (4.2-5.4)
[2020-03-28 07:23] LABS: Anion Gap 4 (5-15); BUN 13 mg/dL (7-18); BUN/Creat Ratio 10.7 RATIO (10-20); Calcium,Total 8.9 mg/dL (8.5-10.1); Chloride 104 mmol/L (98-107); Creatinine, Serum 1.21 mg/dL (0.55-1.02); EST Glomerular Filtration Rate 46 mL/min (>60); Est Glom Filt Rate - Afr Amer 55 mL/min (>60); Estimated Creatinine Clearance 34.48 ml/min; Glucose 197 mg/dL (74-106); Potassium 4.4 mmol/L (3.5-5.1); Sodium Level 142 mmol/L (136-145)
[2020-03-28] MEDS: Insulin Lispro 100 UNIT/ML INSULN.PEN 20 UNIT SC ×3 (09:06→18:08)
[2020-03-28] MEDS: Aspirin E.C. 81 MG Tablet PO (09:07)
[2020-03-28] MEDS: Iron Polysaccharide Complex 150 MG CAPSULE PO ×2 (09:07→17:48)
[2020-03-28] MEDS: Azithromycin 250 MG Tablet PO (09:08)
[2020-03-28] MEDS: Calcium (Elemental) 500 MG Tablet PO (09:08)
[2020-03-28 11:26] LABS: Bedside Glucose 254 mg/dL (70-110)
[2020-03-28 16:50] LABS: Bedside Glucose 234 mg/dL (70-110)
[2020-03-28] MEDS: Tamsulosin HCl 0.4 MG Capsule PO (17:48)
[2020-03-28 18:26] VITALS: BP 118/64; PULSE 68; RESP 18; TEMP 36.7; O2SAT 93
[2020-03-28] MEDS: Atorvastatin Calcium 80 MG Tablet PO (21:12)
[2020-03-28] MEDS: MELATONIN 3 MG TABLET 6 MG PO (21:12)
[2020-03-28 21:16] LABS: Bedside Glucose 267 mg/dL (70-110)
[2020-03-28 21:52] VITALS: O2SAT 94
[2020-03-28] MEDS: traMADol 50 MG Tablet PO (23:05)
[2020-03-29] MEDS: Isosorbide Mononitrate 30 MG Tablet PO (05:02)
[2020-03-29] MEDS: Cefdinir 300 MG Capsule PO ×2 (05:02→16:50)
[2020-03-29] MEDS: Senna/Docusate Sodium 1 Tablet 2 TABLET PO ×2 (05:02→16:50)
[2020-03-29] MEDS: Metoclopramide 10 MG Tablet PO ×4 (05:02→21:23)
[2020-03-29] MEDS: Lactulose 20 GM/30 ML UDC PO ×2 (05:02→16:05)
[2020-03-29 05:03] VITALS: BP 132/59; PULSE 75
[2020-03-29] MEDS: Sucralfate 1 GM Tablet PO ×4 (05:03→21:23)
[2020-03-29] MEDS: Metoprolol(XL)Succ 25 MG Tablet PO (05:03)
[2020-03-29] MEDS: Menthol/Lanolin/Calamine/Znox 113 GM Tube 1 APPLIC TOPICAL ×2 (05:03→21:23)
[2020-03-29] MEDS: Nystatin Powder 15gm Bottle 1 APPLIC TOPICAL ×2 (05:03→21:23)
[2020-03-29] MEDS: Anastrozole 1 MG Tablet PO (05:03)
[2020-03-29] MEDS: Polyethylene Glycol 3350 17 GM PACKET PO (05:07)
[2020-03-29] MEDS: Pantoprazole Sodium 40 MG Tablet PO ×2 (05:08→16:50)
[2020-03-29 05:11] VITALS: RESP 17; TEMP 36.6; O2SAT 94
[2020-03-29 06:21] LABS: Bedside Glucose 287 mg/dL (70-110)
[2020-03-29] MEDS: Insulin Lispro 100 UNIT/ML INSULN.PEN 20 UNIT SC ×2 (08:16→12:06)
[2020-03-29] MEDS: Aspirin E.C. 81 MG Tablet PO (08:17)
[2020-03-29] MEDS: Calcium (Elemental) 500 MG Tablet PO (08:17)
[2020-03-29] MEDS: Iron Polysaccharide Complex 150 MG CAPSULE PO ×2 (08:17→15:59)
[2020-03-29] MEDS: Azithromycin 250 MG Tablet PO (10:17)
[2020-03-29 10:22] VITALS: PULSE 93; RESP 18; O2SAT 93
[2020-03-29 11:41] LABS: Bedside Glucose 294 mg/dL (70-110)
[2020-03-29 14:23] VITALS: BP 136/64; PULSE 93; RESP 18; TEMP 36.8; O2SAT 93
[2020-03-29] MEDS: Tamsulosin HCl 0.4 MG Capsule PO (16:50)
[2020-03-29 17:16] LABS: Bedside Glucose 206 mg/dL (70-110)
[2020-03-29] MEDS: Insulin Lispro 100 UNIT/ML INSULN.PEN 23 UNIT SC (18:22)
[2020-03-29] MEDS: Atorvastatin Calcium 80 MG Tablet PO (21:23)
[2020-03-29] MEDS: MELATONIN 3 MG TABLET 6 MG PO (21:23)
[2020-03-29] MEDS: traMADol 50 MG Tablet PO (21:28)
[2020-03-29 21:30] LABS: Bedside Glucose 186 mg/dL (70-110)
[2020-03-30] MEDS: Bisacodyl 10 MG Suppository RECTAL (01:22)
[2020-03-30 03:27] VITALS: BP 147/59; PULSE 90; RESP 18; TEMP 37; O2SAT 94
[2020-03-30] MEDS: traMADol 50 MG Tablet PO (03:29)
[2020-03-30 05:13] VITALS: BP 150/68; PULSE 92
[2020-03-30] MEDS: Metoprolol(XL)Succ 25 MG Tablet PO (05:13)
[2020-03-30] MEDS: Metoclopramide 10 MG Tablet PO (05:13)
[2020-03-30] MEDS: Polyethylene Glycol 3350 17 GM PACKET PO ×2 (05:13→17:55)
[2020-03-30] MEDS: Anastrozole 1 MG Tablet PO (05:13)
[2020-03-30] MEDS: Senna/Docusate Sodium 1 Tablet 2 TABLET PO ×2 (05:13→17:55)
[2020-03-30] MEDS: Lactulose 20 GM/30 ML UDC PO ×2 (05:13→17:55)
[2020-03-30] MEDS: Sucralfate 1 GM Tablet PO ×4 (05:13→20:48)
[2020-03-30] MEDS: Isosorbide Mononitrate 30 MG Tablet PO (05:13)
[2020-03-30] MEDS: Cefdinir 300 MG Capsule PO ×2 (05:13→17:55)
[2020-03-30] MEDS: Pantoprazole Sodium 40 MG Tablet PO ×2 (05:13→17:34)
[2020-03-30] MEDS: Menthol/Lanolin/Calamine/Znox 113 GM Tube 1 APPLIC TOPICAL ×2 (05:20→20:51)
[2020-03-30] MEDS: Nystatin Powder 15gm Bottle 1 APPLIC TOPICAL ×2 (05:23→20:51)
[2020-03-30 06:26] LABS: Bedside Glucose 286 mg/dL (70-110)
[2020-03-30 08:53] LABS: Erythrocyte Sedimentation Rate 16 mm/hr (0-30)
[2020-03-30] MEDS: Calcium (Elemental) 500 MG Tablet PO (09:13)
[2020-03-30] MEDS: Aspirin E.C. 81 MG Tablet PO (09:13)
[2020-03-30] MEDS: Iron Polysaccharide Complex 150 MG CAPSULE PO ×2 (09:13→17:34)
[2020-03-30] MEDS: Insulin Lispro 100 UNIT/ML INSULN.PEN 23 UNIT SC ×3 (09:13→18:00)
[2020-03-30 09:28] LABS: CPK Total, Creatine Kinase 64 U/L (26-192)
[2020-03-30 10:23] LABS: Vitamin B12 223 pg/mL (211-911)
[2020-03-30 10:55] LABS: Bedside Glucose 355 mg/dL (70-110)
[2020-03-30] MEDS: Azithromycin 250 MG Tablet PO (12:04)
[2020-03-30] MEDS: Cyanocobalamin (B12) 1,000 MCG/ML Vial 1000 MCG IM (12:43)
--- NOTE | 2020-03-30 12:57 | NURSING ---
Vitamin B12 injection given in Left deltoid. Patient tolerated well.
--- NOTE | 2020-03-30 13:54 | NURSING ---
Urine collected from centeno catheter at 1340. Sent to lab at this time.
--- NOTE | 2020-03-30 15:37 | NURSING ---
Clinicals faxed to patient's insurance for precertification of CT of abd, cervical spine, lumbar puncture and NCS/EMG.
[2020-03-30 15:41] VITALS: BP 126/68; PULSE 92; RESP 18; TEMP 36.6; O2SAT 93
[2020-03-30 16:35] LABS: Bedside Glucose 283 mg/dL (70-110)
[2020-03-30] MEDS: Tamsulosin HCl 0.4 MG Capsule PO (17:34)
[2020-03-30 18:21] LABS: Bacteria 0 SEEN /hpf (None Seen); Color, Urine Yellow (Yellow); Glucose, Dipstick 1000 mg/dl (Normal); Ketone-Dipstick 5 mg/dl (Negative); Leukocyte Esterase-Dipstick Negative /ul (Negative); Mucous, Urine 0 SEEN /hpf (<or=2+); Nitrite-Dipstick Negative (Negative); Occult Blood-Urine 25 /ul (Negative); Protein-Dipstick Negative (Negative); Urine Bilirubin Dipstick Negative (Negative); Urine Clarity Clear (Clear); Urine Urobilinogen Normal (Normal)
[2020-03-30 19:21] LABS: Red Blood Cells-Urine 0-5 SEEN /hpf (0-5); Squamous Epithelial Cells - UA 0-5 SEEN /hpf (5-10); White Blood Cells 0-5 SEEN /hpf (0-5)
[2020-03-30 19:22] LABS: Yeast-Urine RARE /hpf (None Seen)
[2020-03-30] MEDS: MELATONIN 3 MG TABLET 6 MG PO (20:48)
[2020-03-30] MEDS: Atorvastatin Calcium 80 MG Tablet PO (20:48)
[2020-03-30 21:06] LABS: Bedside Glucose 220 mg/dL (70-110)
[2020-03-31 03:28] VITALS: BP 145/51; PULSE 94; RESP 18; TEMP 36.3; O2SAT 97
[2020-03-31] MEDS: traMADol 50 MG Tablet PO (03:30)
[2020-03-31] MEDS: Polyethylene Glycol 3350 17 GM PACKET PO ×2 (03:31→18:20)
[2020-03-31] MEDS: Menthol/Lanolin/Calamine/Znox 113 GM Tube 1 APPLIC TOPICAL (03:33)
[2020-03-31] MEDS: Nystatin Powder 15gm Bottle 1 APPLIC TOPICAL (03:34)
[2020-03-31] MEDS: Sucralfate 1 GM Tablet PO (05:22)
[2020-03-31] MEDS: Senna/Docusate Sodium 1 Tablet 2 TABLET PO ×2 (05:22→18:17)
[2020-03-31] MEDS: Cefdinir 300 MG Capsule PO ×2 (05:22→18:24)
[2020-03-31] MEDS: Isosorbide Mononitrate 30 MG Tablet PO (05:22)
[2020-03-31] MEDS: Pantoprazole Sodium 40 MG Tablet PO (05:22)
[2020-03-31] MEDS: Lactulose 20 GM/30 ML UDC PO (05:22)
[2020-03-31 05:23] VITALS: BP 145/51; PULSE 94
[2020-03-31] MEDS: Metoprolol(XL)Succ 25 MG Tablet PO (05:23)
[2020-03-31] MEDS: Anastrozole 1 MG Tablet PO (05:23)
[2020-03-31 06:31] LABS: Bedside Glucose 222 mg/dL (70-110)
--- NOTE | 2020-03-31 07:48 | NURSING ---
Addendum entered by Kristel Orta 03/31/20 08:15: explained to pt that she would be npo until after ct and meds would be given at that time Original Note: taking small sips of ct contrast. sl placed to lt inner fa. therapy in working with pt
--- NOTE | 2020-03-31 08:15 | PCM.TCUNOT ---
Subjective: Resident seen for regulatory visit. She is lying in bed, she has no complaints. She has been having nausea, constipation intermittently, no nausea today, and her last X-ray of abdomen showed minimal stool. Yesterday, therapy noted left sided neglect. She has also been having progressive weakness despite daily therapy. Yesterday, she was a Rosa lift. Teleneurology consulted for weakness, evaluation ordered. She has also become hypoxic, on antibiotics for presumptive pneumonia. Vitals/I&O's: Vital Signs Temp Pulse Resp BP Pulse Ox 97.3 F L 94 18 145/51 H 97 03/31/20 03:28 03/31/20 05:23 03/31/20 03:28 03/31/20 05:23 03/31/20 03:28 Oxygen Flow Rate (L/min) 4 Oxygen Delivery Method Nasal Cannula Weight: 88.224 kg Body Mass Index (BMI) 34.9 Finger Stick Blood Glucose 230 Intake and Output for Last 24 Hours 03/29/20 03/30/20 03/31/20 23:59 23:59 23:59 Intake Total 560 / 560 600 / 600 Output Total 750 / 750 850 / 850 650 / 650 Balance -190 / -190 -250 / -250 -650 / -650 Laboratory Results 03/30/20 08:28: ESR 16 03/30/20 08:28: Total Creatine Kinase 64 03/30/20 08:28: Vitamin B12 223 03/30/20 08:28: RBC Folate Hemolysate Pending, RBC Folate Pending, Hematocrit Pending 03/30/20 10:50: POC Glucose 355 H 03/30/20 13:40: Urine Color Yellow, Urine Clarity Clear, Urine pH 5.0, Ur Specific [place] 1.020, Urine Protein Negative, Urine Glucose (UA) 1000 H, Urine Ketones 5 H, Urine Occult Blood 25 H, Urine Nitrite Negative, Urine Bilirubin Negative, Urine Urobilinogen Normal, Ur Leukocyte Esterase Negative, Urine RBC 0-5 SEEN, Urine WBC 0-5 SEEN, Ur Squamous Epith Cells 0-5 SEEN, Urine Bacteria 0 SEEN, Urine Mucus 0 SEEN, Urine Yeast RARE 03/30/20 16:25: POC Glucose 283 H 03/30/20 20:45: POC Glucose 220 H 03/31/20 06:21: POC Glucose 222 H Past Medical History Past Medical History (Chronic Problems): Chronic Problems (Last Reviewed 05/22/19 @ 15:31 by Tessy Osorio) Coronary artery disease (Chronic) Stroke (Chronic) Breast cancer (Chronic) History of right breast cancer (Chronic) History of stroke (Chronic) Diabetes (Chronic) History of pacemaker (Chronic) History of cardiac defibrillator placement (Chronic) Medical History: Medical History (Last Reviewed 05/22/19 @ 15:31 by Tessy Osorio) Cardiac defibrillator in place Z95.810 Diabetes mellitus E11.9 Heart disease I51.9 Left arm surgery Pacemaker Z95.0 2018 Stroke I63.9 2018 heart cath 2018 Allergies amoxicillin [From Augmentin] Allergy (Verified 03/08/20 12:37) PT UNSURE OF REACTION clavulanic acid [From Augmentin] Allergy (Verified 03/08/20 12:37) PT UNSURE OF REACTION Iodinated Contrast Media [DYEE] Allergy (Verified 05/22/19 15:32) Anaphylaxis levofloxacin [From Levaquin] Allergy (Verified 03/15/20 15:48) Upset Stomach loratadine [From Claritin] Allergy (Verified 03/08/20 12:37) PT UNSURE OF REACTION hydrocodone bitartrate [From Vicodin] Adverse Reaction (Verified 05/22/19 15:32) Nausea/Vom/Diarrhea iodine Adverse Reaction (Verified 03/08/20 12:37) Nausea/Vom/Diarrhea Home Medications: Ambulatory Orders Medication Instructions Recorded Acetaminophen [Tylenol] 650 mg PO Q4H PRN PRN 03/02/20 Anastrozole [Arimidex] 1 mg PO DAILY 03/02/20 Aspirin E.C. [Ecotrin] 81 mg PO DAILY@0800 03/02/20 Atorvastatin Calcium [Lipitor] 80 mg PO QHS 03/02/20 Calcium Carbonate 600 mg PO DAILY 03/02/20 Cholecalciferol (VIT D3) [Vitamin 1,000 unit PO DAILY 03/02/20 D3] Insulin Detemir [Levemir Flextouch] 35 unit SQ DAILY 03/02/20 Insulin Lispro [Humalog KwikPen] 5 unit SQ TID 03/02/20 Insulin Lispro [Humalog KwikPen] See Protocol SQ ACHS 03/02/20 Isosorbide Mononitrate [Isosorbide 30 mg PO DAILY 03/02/20 Mononitrate ER] Losartan Potassium [Cozaar] 25 mg PO DAILY 03/02/20 Magnesium Hydroxide [Milk of 30 ml PO DAILY PRN PRN 03/02/20 Magnesia] Melatonin 6 mg PO QHS 03/02/20 Metoprolol Succinate [Toprol Xl] 50 mg PO DAILY 03/02/20 Ondansetron HCl [Zofran] 4 mg PO Q6H PRN PRN 03/02/20 Polyethylene Glycol 3350 17 gm PO BID 03/02/20 Prednisone 20 mg PO DAILY 03/02/20 Promethazine HCl 25 mg PO DAILY PRN PRN 03/02/20 Sodium Phosphate,[place]-Dibasic 1 bottle [place] DAILY PRN PRN 03/02/20 [Fleet Enema] Tramadol HCl [Ultram] 50 mg PO Q6H PRN PRN 03/02/20 Cephalexin [Keflex] 500 mg PO Q12 03/06/20 Ferrous Sulfate 325 mg PO 1200,1700 03/06/20 Fluconazole [Diflucan] 200 mg PO DAILY 03/06/20 Furosemide [Lasix] 40 mg PO DAILY #0 03/06/20 Pantoprazole Sodium [Protonix] 40 mg PO BID 03/06/20 Sucralfate [Carafate] 1 gm PO 1HR_ACHS 03/06/20 Tamsulosin HCl [Flomax] 0.4 mg PO DAILY@1730 03/06/20 Surgical History: Surgical History (Last Reviewed 05/22/19 @ 15:31 by Tessy Osorio) History of appendectomy Z98.890, Z90.49 History of cataract extraction Z98.49 History of cholecystectomy Z98.890, Z90.49 History of hernia repair Z98.890, Z87.19 History of open heart surgery Z98.890 History of tonsillectomy Z98.890, Z90.89 Surgical History: appendectomy, cataract, cholecystectomy, coronary bypass surgery, herniorrhaphy, pacemaker implantation, tonsillectomy, - - Left arm surgery. 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 history Lives: Long-Term Smoking Status: Never smoker Tobacco Use: Non-smoker Alcohol: None Drugs: None - *Family History Maternal Family History: Family History (Last Reviewed 05/22/19 @ 15:31 by Tessy Osorio) Mother Arthritis History Items: No pertinent history Paternal Family History: Family History (Last Reviewed 05/22/19 @ 15:31 by Tessy Osorio) Mother Arthritis History Items: No pertinent history Capacity - Capacity Assessment Tool Can the patient make a choice & communicate that choice?: Yes Can the patient understand benefits, risks and alternatives?: Yes Can the patient make a logical, rational choice?: Unable to Determine Is the choice the patient makes consistent w/ their values?: Unable to Determine Is there an impending, emergent risk to the patient?: No Does the patient have an Advance Directive?: No Is there a Surrogate Available?: Yes i.e. HCPOA: Yes i.e. close relative (spouse, child, parent, sibling)?: Yes Review of Systems Constitutional: Denies: Chills, Fever, Weight Change HEENT: Denies: Head Aches, Sinus Congestion, Sinus Drainage Cardiovascular: Denies: Chest Pain, Palpitations Respiratory: Denies: Cough, Shortness of breath at rest, Sputum production Gastrointestinal: Denies: Abdominal Pain, Nausea, Vomiting Genitourinary: Denies: Dysuria Musculoskeletal: Denies: Joint Pain, Joint Tenderness Skin: Denies: Rash, Wounds Neurological: Denies: Numbness, Tingling, Focal weakness Psychiatric: Denies: Anxiety, Depression, Homicidal Ideations, Suicidal Ideations Hematologic/ Lymphatic: Denies: Easy Bruising, Easy Bleeding Patient Problems: Active and Suspected Problems (Last Reviewed 05/22/19 @ 15:31 by Tessy Osorio) Debility (Acute) Candidiasis (Acute) Upper gastrointestinal bleed (Acute) Guaiac positive stools (Acute) Gastric cardia ulcer (Acute) Acute kidney injury (Acute) - Physical Exam Vitals/I&O's: Vital Signs Temp Pulse Resp BP Pulse Ox 97.3 F L 94 18 145/51 H 97 03/31/20 03:28 03/31/20 05:23 03/31/20 03:28 03/31/20 05:23 03/31/20 03:28 Oxygen Flow Rate (L/min) 4 Oxygen Delivery Method Nasal Cannula Weight: 88.224 kg Body Mass Index (BMI) 34.9 Finger Stick Blood Glucose 230 Intake and Output for Last 24 Hours 03/29/20 03/30/20 03/31/20 23:59 23:59 23:59 Intake Total 560 / 560 600 / 600 Output Total 750 / 750 850 / 850 650 / 650 Balance -190 / -190 -250 / -250 -650 / -650 General: Alert, Oriented x3, Cooperative HEENT: Atraumatic, PERRLA, EOMI, Normocephalic Neck: Supple, No JVD, Negative Carotid Bruits Lungs: Clear to auscultation, Normal air movement Cardiovascular: Regular rate, No murmurs Abdomen: Bowel Sounds Present, Soft, Non Tender, - - Indwelling Centeno catheter. Extremities: No edema, Capillary Refill Less than 3 Seconds Skin: No rashes, No breakdown Musculoskeletal: No Tenderness to Palpation of Joints or Extremities Neurological: Cranial nerves II-XII grossly intact Psych/Mental Status: Normal Affect, Appropriate Laboratory Results 03/30/20 08:28: ESR 16 03/30/20 08:28: Total Creatine Kinase 64 03/30/20 08:28: Vitamin B12 223 03/30/20 08:28: RBC Folate Hemolysate Pending, RBC Folate Pending, Hematocrit Pending 03/30/20 10:50: POC Glucose 355 H 03/30/20 13:40: Urine Color Yellow, Urine Clarity Clear, Urine pH 5.0, Ur Specific [place] 1.020, Urine Protein Negative, Urine Glucose (UA) 1000 H, Urine Ketones 5 H, Urine Occult Blood 25 H, Urine Nitrite Negative, Urine Bilirubin Negative, Urine Urobilinogen Normal, Ur Leukocyte Esterase Negative, Urine RBC 0-5 SEEN, Urine WBC 0-5 SEEN, Ur Squamous Epith Cells 0-5 SEEN, Urine Bacteria 0 SEEN, Urine Mucus 0 SEEN, Urine Yeast RARE 03/30/20 16:25: POC Glucose 283 H 03/30/20 20:45: POC Glucose 220 H 03/31/20 06:21: POC Glucose 222 H Current Medications Acetaminophen (Tylenol) 1,000 mg PO Q6H PRN PRN PRN Reason: Pain Score 1-3/10 Last Admin: 03/27/20 18:47 Dose: 1,000 mg Documented by: Anastrozole (Arimidex) 1 mg PO DAILY [facility] Last Admin: 03/31/20 05:23 Dose: 1 mg Documented by: Aspirin (Ecotrin) 81 mg PO DAILY@0800 [facility] Last Admin: 08/10/20 09:13 Dose: 81 mg Documented by: Atorvastatin Calcium (Lipitor) 40 mg PO QHS [facility] Azithromycin (Zithromax) 250 mg PO Q24 [facility] Stop: 04/01/20 10:01 Last Admin: 03/30/20 12:04 Dose: 250 mg Documented by: Bisacodyl (Dulcolax) 10 mg RECTAL DAILY PRN PRN Reason: Constipation Last Admin: 03/30/20 01:22 Dose: 10 mg Documented by: Calamine/Phenol (Calmoseptine Ointment) 1 applic TOPICAL 0600,2200 [facility]; Protocol Last Admin: 03/31/20 03:33 Dose: 1 applicatio Documented by: Cefdinir (Omnicef [Equiv]) 300 mg PO Q12 [facility] Stop: 04/04/20 06:01 Last Admin: 03/31/20 05:22 Dose: 300 mg Documented by: Cyanocobalamin (Vitamin B12) 1,000 mcg IM MOWEFR [facility] Last Admin: 03/30/20 12:43 Dose: 1,000 mcg Documented by: Dextrose (D50w Syringe) 0 gm IV X1 PRN; Protocol PRN Reason: Hypoglycemia Glucagon () 1 mg IM .X1 PRN PRN Reason: Hypoglycemia Insulin Glargine (Lantus (Bkc)) 70 units SC QHS [facility] Last Admin: 03/30/20 20:46 Dose: 70 units Documented by: Insulin Human Lispro (Humalog Kwikpen (Bkc)) 23 unit SC TIDAC [facility] Last Admin: 03/30/20 18:00 Dose: 23 u Documented by: Isosorbide Mononitrate (Imdur) 30 mg PO DAILY [facility] Last Admin: 03/31/20 05:22 Dose: 30 mg Documented by: Lactulose (Chronulac, Cephulac) 20 gm PO BID [facility] Last Admin: 03/31/20 05:22 Dose: 20 gm Documented by: Metoprolol Succinate (Toprol Xl (Beta Corin)) 25 mg PO DAILY [facility] Last Admin: 03/31/20 05:23 Dose: 25 mg Documented by: Nystatin (Mycostatin Powder) 1 applic TOPICAL 0600,2200 [facility]; Protocol Last Admin: 03/31/20 03:34 Dose: 1 applicatio Documented by: Pantoprazole Sodium (Protonix) 40 mg PO DAILY [facility] Polyethylene Glycol (Miralax) 17 gm PO BID [facility] Last Admin: 03/31/20 03:31 Dose: 17 gm Documented by: Senna/Docusate Sodium (Senokot-S, Clarisa-Colace) 2 tablet PO BID [facility] Last Admin: 03/31/20 05:22 Dose: 2 tablet Documented by: Sodium Chloride () 10 - 40 ml IV UD PRN PRN Reason: SALINE FLUSH Last Admin: 03/16/20 17:32 Dose: 10 ml Documented by: Tamsulosin HCl (Flomax) 0.4 mg PO DAILY@1730 [facility] Last Admin: 03/30/20 17:34 Dose: 0.4 mg Documented by: Assessment/Plan All Active Problems (Last Reviewed 05/22/19 @ 15:31 by Tessy Osorio) Debility (Acute) Candidiasis (Acute) Upper gastrointestinal bleed (Acute) Guaiac positive stools (Acute) Gastric cardia ulcer (Acute) Acute kidney injury (Acute) Osteopenia (Acute) Breast cancer, right (Resolved) Facial droop (Acute) Generalized weakness (Acute) Multiple contusions (Acute) Anemia (Acute) GI bleed (Acute) Acute kidney failure (Acute) Troponin I above reference range (Acute) UTI (urinary tract infection) (Acute) 80 year old female with below past medical history hospitalized for encephalopathy secondary to urinary tract infection, stroked ruled out, complicated by anemia secondary to gastric ulcers, admitted to TCU with debility, here for rehabilitation, strengthening, prior to discharge to long-term. Resident prognosis is poor. Debility - PT/OT. Pain - Tylenol 1000MG Q6H PRN pain (1-3). Bowel - Lactulose 20GM BID, Miralax 17GM BID, Senna/colace 1 tablet BID, Dulcolax 10MG daily PRN. Adult immunization - Administer Prevnar 13, Pneumovax 23, Fluzone as appropriate. DVT prophylaxis - hold, UGIB in hospital. Breast cancer - Anastrozole 1MG daily, Dr. Liang. Stroke - Aspirin 81MG daily. Hyperlipidemia - Atorvastatin 40MG QHS. Diabetes Mellitus II - Lantus 70 units daily, Humalog 23 units TIDAC, Glucagon 1MG IM x 1 PRN low blood sugar. Coronary Artery Disease - Metoprolol succinate 25MG daily, Isosorbide [place] 30MG daily, Aspirin 81MG daily. Gastric ulcer - Pantoprazole 40MG daily. Urinary retention - Tamsulosin 0.4MG daily, indwelling centeno catheter, failed voiding trial. Skin irritation - Calmoseptine BID, Nystatin powder BID. Pneumonia - Cefdinir 300MG Q12H thru 04/04/2020, Zithromax thru 04/01/2020. Vitamin B12 deficiency - B12 1000MCG IM MoWeFr. Weakness - CT brain, CT cervical spine to evaluate for cervical myelopathy. Abdominal bloating - CT abdomen/pelvis.
--- NOTE | 2020-03-31 10:24 | NURSING ---
pt returned from ct scan. n/v, unable to eat breakfast, scheduled insulin held. dr patel notified and orders received.
[2020-03-31] MEDS: Ondansetron ODT 4 MG Tablet 8 MG PO ×2 (10:37→18:31)
--- NOTE | 2020-03-31 11:05 | NURSING ---
mike hinton. came to adm am meds but pt resting quietly w/eyes closed.
[2020-03-31 11:26] LABS: Bedside Glucose 240 mg/dL (70-110)
[2020-03-31] MEDS: Azithromycin 250 MG Tablet PO (11:55)
[2020-03-31] MEDS: Aspirin E.C. 81 MG Tablet PO (11:55)
[2020-03-31] MEDS: Insulin Lispro 100 UNIT/ML INSULN.PEN 23 UNIT SC ×2 (11:55→18:20)
[2020-03-31 13:57] VITALS: BP 114/57; PULSE 89; RESP 22; TEMP 36.3; O2SAT 99
[2020-03-31 16:30] LABS: Bedside Glucose 163 mg/dL (70-110)
--- NOTE | 2020-03-31 17:21 | NURSING ---
spoke with pts son Yevgeniy and updated him
[2020-03-31] MEDS: Furosemide 40 MG Tablet PO (18:17)
[2020-03-31] MEDS: Tamsulosin HCl 0.4 MG Capsule PO (18:18)
[2020-03-31] MEDS: Acetaminophen 500 MG Tablet 1000 MG PO (18:30)
[2020-03-31 20:07] LABS: Folate, RBC (Hct) Test 33.4 % (34.0-46.6)
--- NOTE | 2020-03-31 20:30 | NURSING ---
Patient noted to be yelling out from in room. Patient yelling at son to get up. This nurse into talk with patient and to explain to patient that her son is at home and that she is at the hospital. Patient states Why is my son in the hospital? This nurse explains to the patient that her son is at home and she is at the hospital. Patient still not understanding that she is in the hospital. Dr. Kaur called and notified of patient confusion. Orders given to send patient down to ER for evaluation and change in mental status.
[2020-03-31 20:31] VITALS: BP 148/72; PULSE 95; RESP 22; TEMP 36.6; O2SAT 97
--- NOTE | 2020-03-31 20:40 | NURSING ---
Report called down to ER and given to Naeem.
[2020-03-31 21:36] LABS: Bedside Glucose 122 mg/dL (70-110)
--- NOTE | 2020-03-31 21:45 | NURSING ---
2135 Patient sent down to the ER at this time. Son Yevgeniy notified of patient being sent down to ER.
[2020-04-01 03:20] LABS: Folates, RBC Test 1479 ng/mL (>498)
--- NOTE | 2020-04-01 10:49 | CASEMGMT ---
Social Work Scheduled outdoor meeting with son 04/03 to go over Medicaid application and answer questions. ROD Rivera LEVERMAN
--- NOTE | 2020-04-01 22:49 | NURSING ---
Per Naun, RN pt will be remaining on PCU.
--- NOTE | 2020-04-02 08:05 | DCINST_ITS ---
- Discharge Diagnoses Current Active Problems: Current Active and Chronic Problems (Last Reviewed 05/22/19 @ 15:31 by Tessy Osorio) Failure to thrive (Acute) Confusion (Acute) HTN (hypertension) (Chronic) HLD (hyperlipidemia) (Chronic) Obesity (BMI 30-39.9) (Chronic) You will use the following diet at home:: No restrictions, Regular Your food should be the consistency of: Regular Your liquids should be the consistency of: Regular/Thin Discharge Activity: Return to Normal Activity, May Shower, Use Walker Weight Bearing Status: Weight bearing as tolerated Call your doctor if you observe: Fever of 101 or Higher, Inability to urinate, Inability to have a bowel movement, Shortness of breath, Chest pain, Uncontrolled pain Allergies/Adverse Reactions: Allergies amoxicillin [From Augmentin] Allergy (Verified 03/08/20 12:37) PT UNSURE OF REACTION clavulanic acid [From Augmentin] Allergy (Verified 03/08/20 12:37) PT UNSURE OF REACTION Iodinated Contrast Media [DYEE] Allergy (Verified 05/22/19 15:32) Anaphylaxis levofloxacin [From Levaquin] Allergy (Verified 03/15/20 15:48) Upset Stomach loratadine [From Claritin] Allergy (Verified 03/08/20 12:37) PT UNSURE OF REACTION hydrocodone bitartrate [From Vicodin] Adverse Reaction (Verified 05/22/19 15:32) Nausea/Vom/Diarrhea iodine Adverse Reaction (Verified 03/08/20 12:37) Nausea/Vom/Diarrhea Medications to take at Discharge Acetaminophen [Tylenol] 650 mg PO Q4H PRN PRN 03/02/20 Anastrozole [Arimidex] 1 mg PO DAILY 03/02/20 Aspirin E.C. [Ecotrin] 81 mg PO DAILY@0800 03/02/20 Atorvastatin Calcium [Lipitor] 80 mg PO QHS 03/02/20 Calcium Carbonate 500 mg PO DAILY 03/02/20 Cholecalciferol (VIT D3) [Vitamin D3] 1,000 unit PO DAILY 03/02/20 Insulin Detemir [Levemir Flextouch] 35 unit SQ DAILY 03/02/20 Insulin Lispro [Humalog KwikPen] 5 unit SQ TID 03/02/20 Insulin Lispro [Humalog KwikPen] See Protocol SQ ACHS 03/02/20 Isosorbide Mononitrate [Isosorbide Mononitrate ER] 30 mg PO DAILY 03/02/20 Losartan Potassium [Cozaar] 25 mg PO DAILY 03/02/20 Magnesium Hydroxide [Milk of Magnesia] 30 ml PO DAILY PRN PRN 03/02/20 Melatonin 6 mg PO QHS 03/02/20 Metoprolol Succinate [Toprol Xl] 25 mg PO DAILY 03/02/20 Ondansetron HCl [Zofran] 4 mg PO Q6H PRN PRN 03/02/20 Polyethylene Glycol 3350 17 gm PO BID 03/02/20 Prednisone 20 mg PO DAILY 03/02/20 Promethazine HCl 25 mg PO DAILY PRN PRN 03/02/20 Sodium Phosphate,[place]-Dibasic [Fleet Enema] 1 bottle ID DAILY PRN PRN 03/02/20 Tramadol HCl [Ultram] 50 mg PO Q6H PRN PRN 03/02/20 Cephalexin [Keflex] 500 mg PO Q12 03/06/20 Ferrous Sulfate 325 mg PO 1200,1700 03/06/20 Fluconazole [Diflucan] 200 mg PO DAILY 03/06/20 Furosemide [Lasix] 40 mg PO DAILY #0 03/06/20 Pantoprazole Sodium [Protonix] 40 mg PO BID 03/06/20 Sucralfate [Carafate] 1 gm PO 1HR_ACHS 03/06/20 Tamsulosin HCl [Flomax] 0.4 mg PO DAILY@1730 03/06/20 Azithromycin 250 mg PO DAILY 04/01/20 Cefdinir [Omnicef [equiv]] 600 mg PO DAILY 04/01/20 Cyanocobalamin (Vitamin B-12) [Cyanocobalamin Injection] 1,000 mcg IJ MOWEFR 04/01/20 Iron Polysaccharide Complex [Ferrex 150] 150 mg PO DAILY 04/01/20 Lactulose [Chronulac, Cephulac] 20 gm PO DAILY 04/01/20 Nystatin 15 gm TP BID 04/01/20 Potassium Chloride 20 meq PO DAILY 04/01/20 Sennosides/Docusate Sodium [Senna-Docusate Sodium Tablet] 1 ea PO DAILY 04/01/20 Primary Care Physician: Ab Escobar MD [Primary Care Provider] - Please follow up with your Primary Care Physician in: Hope Bond DO Test Results: Test results from this visit will be discussed in further detail at your follow- up appointment, if applicable. Please Follow Up With: Hope Bond DO When: 1 week after TCU d/c Proposed Discharge Date: 04/01/20
--- NOTE | 2020-04-02 08:07 | PCM.DC.SUM ---
Discharge Date and Diagnosis - Problem List Patient Problems: Active and Suspected Problems (Last Reviewed 05/22/19 @ 15:31 by Tessy Osorio) Failure to thrive (Acute) Confusion (Acute) Date of Admission: 04/01/20 - Primary Discharge Diagnosis Acute Problems: Active Problems (Last Reviewed 05/22/19 @ 15:31 by Tessy Osorio) Failure to thrive (Acute) Confusion (Acute) - Secondary Discharge Diagnosis Chronic Problems: Chronic Problems (Last Reviewed 05/22/19 @ 15:31 by Tessy Osorio) Coronary artery disease (Chronic) Stroke (Chronic) Breast cancer (Chronic) HTN (hypertension) (Chronic) HLD (hyperlipidemia) (Chronic) Obesity (BMI 30-39.9) (Chronic) History of right breast cancer (Chronic) History of stroke (Chronic) Diabetes (Chronic) History of pacemaker (Chronic) History of cardiac defibrillator placement (Chronic) Anemia (Chronic) GI bleed (Chronic) Hospital Course and Treatment Operations: None Procedures: None Summary of Care Provided: The patient is a 80 year old Female with below past medical history hospitalized for encephalopathy secondary to urinary tract infection, stroked ruled out, complicated by anemia secondary to gastric ulcers, admitted to TCU with debility, here for rehabilitation, strengthening, prior to discharge to group home. Resident prognosis is poor. Resident not progressing with therapy, she is now Rosa lift, increasing confusion, concern for underlying undiagnosed progressive neurologic disorder. Discharge to [facility] Emergency Department for admission to [facility]. Patient Problems: Active and Suspected Problems (Last Reviewed 05/22/19 @ 15:31 by Tessy Osorio) Failure to thrive (Acute) Confusion (Acute) - Physical Exam Vitals/I&O's: Vital Signs Temp Pulse Resp BP Pulse Ox 97.9 F 95 22 H 148/72 H 97 03/31/20 20:31 03/31/20 20:31 03/31/20 20:31 03/31/20 20:31 03/31/20 20:31 Oxygen Flow Rate (L/min) 4 Oxygen Delivery Method Nasal Cannula Weight: 91.263 kg Body Mass Index (BMI) 34.9 Finger Stick Blood Glucose 230 Intake and Output for Last 24 Hours 03/31/20 04/01/20 04/02/20 23:59 23:59 23:59 Intake Total 120 / 120 Output Total 950 / 950 Balance -830 / -830 Microbiology Past 72 Hours 03/30/20 13:40 Urine Catheter - Hernandez Urine Culture - Final Culture exhibits no growth. Discharge Diet: No Restrictions Discharge Activity: Return to Normal Activity, May Shower, Use Walker Weight Bearing Status: Weight bearing as tolerated Call your doctor if you observe: Fever of 101 or Higher, Inability to urinate, Inability to have a bowel movement, Shortness of breath, Chest pain, Uncontrolled pain Home Medications: Medications to take at Discharge Acetaminophen [Tylenol] 650 mg PO Q4H PRN PRN 03/02/20 Anastrozole [Arimidex] 1 mg PO DAILY 03/02/20 Aspirin E.C. [Ecotrin] 81 mg PO DAILY@0800 03/02/20 Atorvastatin Calcium [Lipitor] 80 mg PO QHS 03/02/20 Calcium Carbonate 500 mg PO DAILY 03/02/20 Cholecalciferol (VIT D3) [Vitamin D3] 1,000 unit PO DAILY 03/02/20 Insulin Detemir [Levemir Flextouch] 35 unit SQ DAILY 03/02/20 Insulin Lispro [Humalog KwikPen] 5 unit SQ TID 03/02/20 Insulin Lispro [Humalog KwikPen] See Protocol SQ ACHS 03/02/20 Isosorbide Mononitrate [Isosorbide Mononitrate ER] 30 mg PO DAILY 03/02/20 Losartan Potassium [Cozaar] 25 mg PO DAILY 03/02/20 Magnesium Hydroxide [Milk of Magnesia] 30 ml PO DAILY PRN PRN 03/02/20 Melatonin 6 mg PO QHS 03/02/20 Metoprolol Succinate [Toprol Xl] 25 mg PO DAILY 03/02/20 Ondansetron HCl [Zofran] 4 mg PO Q6H PRN PRN 03/02/20 Polyethylene Glycol 3350 17 gm PO BID 03/02/20 Prednisone 20 mg PO DAILY 03/02/20 Promethazine HCl 25 mg PO DAILY PRN PRN 03/02/20 Sodium Phosphate,[place]-Dibasic [Fleet Enema] 1 bottle [place] DAILY PRN PRN 03/02/20 Tramadol HCl [Ultram] 50 mg PO Q6H PRN PRN 03/02/20 Cephalexin [Keflex] 500 mg PO Q12 03/06/20 Ferrous Sulfate 325 mg PO 1200,1700 03/06/20 Fluconazole [Diflucan] 200 mg PO DAILY 03/06/20 Furosemide [Lasix] 40 mg PO DAILY #0 03/06/20 Pantoprazole Sodium [Protonix] 40 mg PO BID 03/06/20 Sucralfate [Carafate] 1 gm PO 1HR_ACHS 03/06/20 Tamsulosin HCl [Flomax] 0.4 mg PO DAILY@1730 03/06/20 Azithromycin 250 mg PO DAILY 04/01/20 Cefdinir [Omnicef [equiv]] 600 mg PO DAILY 04/01/20 Cyanocobalamin (Vitamin B-12) [Cyanocobalamin Injection] 1,000 mcg IJ MOWEFR 04/01/20 Iron Polysaccharide Complex [Ferrex 150] 150 mg PO DAILY 04/01/20 Lactulose [Chronulac, Cephulac] 20 gm PO DAILY 04/01/20 Nystatin 15 gm TP BID 04/01/20 Potassium Chloride 20 meq PO DAILY 04/01/20 Sennosides/Docusate Sodium [Senna-Docusate Sodium Tablet] 1 ea PO DAILY 04/01/20 Primary Care Physician: Ab Escobar MD [Primary Care Provider] - Please follow up with your Primary Care Physician in: Hope Bond DO Please Follow Up With: Hoep Bond DO When: 1 week after TCU d/c Disposition: Acute care Hospital Minutes spent on discharge:: 30 Patient Condition:: Guarded Medical Necessity - Tobacco Use Smoking Status: Never smoker Tobacco Use: Non-smoker Meaningful Use Info Meaningful Use Diagnoses (Choose all that apply): None applicable
== END 2020-04-01 22:50 | disposition short-term general hospital (02) | DRG 689 ==
PROVIDERS: Admitting Provider Family Medicine Geriatric Medicine; PCP Family Medicine; Visit Provider Family Medicine Geriatric Medicine
DX: N39.0 Urinary tract infection, site not specified (principal); K22.11 Ulcer of esophagus with bleeding; B37.81 Candidal esophagitis; D50.9 Iron deficiency anemia, unspecified; E55.9 Vitamin D deficiency, unspecified; E78.5 Hyperlipidemia, unspecified; E11.9 Type 2 diabetes mellitus without complications; I25.10 Atherosclerotic heart disease of native coronary artery without angina pectoris; Z95.810 Presence of automatic (implantable) cardiac defibrillator; C50.911 Malignant neoplasm of unspecified site of right female breast; R33.9 Retention of urine, unspecified; K25.7 Chronic gastric ulcer without hemorrhage or perforation; R62.7 Adult failure to thrive; Z68.33 Body mass index [BMI] 33.0-33.9, adult; R41.0 Disorientation, unspecified; I10 Essential (primary) hypertension; E66.9 Obesity, unspecified
CPT/HCPCS: 36415; 71046; 74018; 80048; 81001; 82550; 82607; 82747; 82962; 85014; 85018; 85025; 85652; 86850; 86900; 86901; 86920; 86922; 87077; 87086; 87088; 87186; 87635; 97110; 97116; 97162; 97167; 97530; 97535; 97802; G2023; A4216; J1940; J3420; U0003

== ENCOUNTER → 2020-03-10 10:56 | Outpatient (CLI) | payer MEDICARE, SELFPAY ==
[2020-03-06 15:50] VITALS: BMI 34.9
[2020-03-10] VITALS (9 sets, daily range): BP systolic 128–151; BP diastolic 50–72; PULSE 65–79; RESP 16; TEMP 36.4–37.4; O2SAT 92–95; BMI 35.2
[2020-03-10] MEDS: 0.9% Saline Lock 10 ML Syringe IV ×2 (11:11→16:54)
[2020-03-10 21:56] LABS: Bedside Glucose 296 mg/dL (70-110)
== END ==
PROVIDERS: PCP Family Medicine; Referring Provider Family Medicine Geriatric Medicine; Visit Provider Family Medicine Geriatric Medicine
DX: D64.9 Anemia, unspecified (principal); Z79.899 Other long term (current) drug therapy
CPT/HCPCS: 36430; 82962; 86850; 86900; 86901; 86920; 86922; J7040; P9016; P9040; A4216

== ENCOUNTER → 2020-03-31 06:57 | Outpatient (CLI) | payer MEDICARE, MEDICAID, SELFPAY ==
[2020-03-10 10:50] VITALS: BMI 35.2
--- NOTE | 2020-03-31 07:37 | CT_ITS ---
STUDY: CT BRAIN WITHOUT CONTRAST REASON FOR EXAM: Female, 80 years old. CHANGE IN MENTAL STATUS, PAIN, NAUSEA, CONSTIPATION, SURG-APPY, JAY, HERNIA REPAIR, HX-CVA, PACEMAKER, DB, BREAST CA, PT NOTICED LT SIDED NEGLECT YESTERDAY DURING THERAPY RADIATION DOSAGE (If Supplied By Facility): CTDIvol = ( 44.99 ) mGy, DLP = ( 796.11 ) mGycm TECHNIQUE: Transaxial CT imaging of the brain was performed without administration of intravenous contrast material. Individualized dose optimization techniques were used for this CT. COMPARISON: Comparison is made with prior study dated 03/03/2020. FINDINGS: Normal soft tissue structures. Normal calvarium. There is mild cerebral atrophy with widening of the extra-axial spaces and ventricular dilatation. There are areas of decreased attenuation within the white matter tracts of the supratentorial brain, consistent with microvascular disease changes. There are small punctate calcifications of the basal ganglia which are seen in the aging brain as a normal variant. Normal brainstem. Normal cerebellum. There is no intracranial hemorrhage. There are no findings of an acute ischemic infarction. Atherosclerotic calcification of the vertebral arteries as well as the cavernous portions of the internal carotid arteries bilaterally. Normal visualized paranasal sinuses. CT/Brain/Head without Contrast IMPRESSION: Chronic involutional changes of the brain. Stable examination. Electronically Signed: Wiliam Hernandez, at 10:23 EDT , Service support ,
--- NOTE | 2020-03-31 07:38 | CT_ITS ---
STUDY: CT ABDOMEN AND PELVIS WITHOUT CONTRAST REASON FOR EXAM: Female, 80 years old. CHANGE IN MENTAL STATUS, PAIN, NAUSEA, CONSTIPATION, SURG-APPY, JAY, HERNIA REPAIR, HX-CVA, PACEMAKER, DB, BREAST CA, PT NOTICED LT SIDED NEGLECT YESTERDAY DURING THERAPY RADIATION DOSAGE (If Supplied By Facility): CTDIvol = ( 22.93 ) mGy, DLP = ( 1185.78 ) mGycm TECHNIQUE: Transaxial images were obtained from the dome of the diaphragm to the symphysis pubis without oral contrast, and without intravenous contrast. Sagittal and coronal images were reconstructed. Individualized dose optimization techniques were used for this CT. COMPARISON: None. FINDINGS: Small left pleural effusion with infiltration at the left lung base. There is evidence of calcified left pleural plaques. The left basilar infiltrate may represent round atelectasis. Mild degree of a right basilar scarring. A dual-chamber pacemaker is seen. Prior CABG. Normal liver. The patient is status post cholecystectomy. Normal spleen. Normal pancreas. Normal bilateral adrenal glands. Normal right kidney. Normal left kidney. There is a small hiatal hernia. Normal small intestine. A moderate amount of fecal material is seen in the colon. The patient is status post appendectomy. There is diffuse atherosclerotic calcification of the abdominal aorta and its major visceral branches, without a demonstrated aneurysm. Normal inferior vena cava. Normal retroperitoneum. A JETER catheter is seen within an empty urinary bladder. Calcified fibroid uterus. There are small benign appearing bilateral inguinal lymph nodes. There is evidence of a 3.7 cm x 2.1 cm lipoma within the left gluteus lateralis muscle. Normal abdominal wall. There are diffuse degenerative changes of the visualized lumbar spine. CT/Abdomen/Pelvis without Cont IMPRESSION: Moderate amount of fecal material is seen in the colon. Small left pleural effusion with left calcified pleural plaques and probable round atelectasis at the left lung base. Mild degree of scarring at the right lung base. Electronically Signed: Wiliam Hernandez, at 10:15 EDT , Service support ,
== END ==
PROVIDERS: PCP Family Medicine; Referring Provider Family Medicine Geriatric Medicine; Visit Provider Family Medicine Geriatric Medicine
DX: R41.82 Altered mental status, unspecified (principal); R53.83 Other fatigue
CPT/HCPCS: 70450; 74176

== ENCOUNTER 2020-03-31 21:53 | Observation (INO) | payer MEDICARE, MEDICAID, SELFPAY ==
[2020-03-10 10:50] VITALS: BMI 35.2
[2020-03-31 21:53] VITALS: BP 122/57; PULSE 95; RESP 18; TEMP 36.6; O2SAT 97; BMI 35.9
--- NOTE | 2020-03-31 22:44 | EKG12_ITS ---
Test Reason : DYSRHYTHMIA Blood Pressure : / mmHG Vent. Rate : 093 BPM Atrial Rate : 093 BPM P-R Int : 110 ms QRS Dur : 120 ms QT Int : 414 ms P-R-T Axes : 086 -55 090 degrees QTc Int : 514 ms Sinus rhythm with short PA Inferior infarct , age undetermined Abnormal ECG Confirmed by CHRISTY MERINO ([id number]), department editor VANI PATEL ([id number]) on 04/03/2020 10:27:23 AM Referred By: MARIBELL Confirmed By:CHRISTY MERINO
--- NOTE | 2020-03-31 22:45 | RAD_ITS ---
STUDY: X-RAY CHEST REASON FOR EXAM: Female, 80 years old. WEAKNESS AND INTERMITTENT CONFUSION. TECHNIQUE: Single AP portable view of the chest. COMPARISON: 03/27/2020. FINDINGS: Normal lung volumes. Right lung remains clear. Stable hazy density of the mid and lower left lung appears to represent chronic pleural-parenchymal scarring. Probable chronic pleural effusion. There is borderline cardiomegaly. Previous CABG. Pacemaker is seen with leads terminating in the right atrium and right ventricle. Normal mediastinum and renay. Normal visualized pulmonary arteries. Normal visualized aortic arch and descending thoracic aorta. Normal visualized thoracic spine. Normal visualized ribs, clavicles, and shoulders. There is no demonstrated abnormality of the visualized soft tissue structures of the upper abdomen. RAD/Chest 1 View (Portable) IMPRESSION: No change. Density of the mid and lower left lung probably represents chronic pleural-parenchymal scarring. Electronically Signed: Homero Palm MD at 23:48 EDT , Service support ,
--- NOTE | 2020-03-31 23:20 | ED.DCSUM_ITS ---
History of Present Illness Chief Complaint: Mental Status Change Informant: Patient, PCP Narrative: Patient is a 80-year-old female who presents to the emergency department from the TCU for failure to thrive. Apparently patient was normal walking/talking in November. Sometime in December/January she had what they thought was a stroke. He has had general decline since then. They were not able to order an MRI due to her pacemaker for her doctor. They are not exactly sure why she continues to decline both physically and mentally. Upon arrival patient does appear confused. Not sure why she is in the emergency department. He does not really have any complaints at this time. The only thing that she did mention on a review of systems was she felt slightly nauseous. Denies any headache, vision changes she denies any weakness or loss of sensation in any extremity. No chest pain or shortness of breath. No abdominal pain. No urinary symptoms. Patient is a full code at this time. Past Medical History - Allergies and Home Meds Allergies/Adverse Reactions: Allergies amoxicillin [From Augmentin] Allergy (Verified 03/08/20 12:37) PT UNSURE OF REACTION clavulanic acid [From Augmentin] Allergy (Verified 03/08/20 12:37) PT UNSURE OF REACTION Iodinated Contrast Media [DYEE] Allergy (Verified 05/22/19 15:32) Anaphylaxis levofloxacin [From Levaquin] Allergy (Verified 03/15/20 15:48) Upset Stomach loratadine [From Claritin] Allergy (Verified 03/08/20 12:37) PT UNSURE OF REACTION hydrocodone bitartrate [From Vicodin] Adverse Reaction (Verified 05/22/19 15:32) Nausea/Vom/Diarrhea iodine Adverse Reaction (Verified 03/08/20 12:37) Nausea/Vom/Diarrhea Primary Care Physician: Ab Escobar MD [Primary Care Provider] - Prior records reviewed: Yes Past Medical History: - - CAD, pacemaker, stroke, history of breast cancer, diabetes Surgical History: appendectomy, cataract, cholecystectomy, coronary bypass surgery, herniorrhaphy, pacemaker implantation, tonsillectomy, - - Left arm surgery. Smoking Status: Unknown if ever smoked - Family History Maternal Family History: Family History (Last Reviewed 05/22/19 @ 15:31 by Tessy Osorio) Mother Arthritis Family History: Reports: No pertinent history Paternal Family History: Family History (Last Reviewed 05/22/19 @ 15:31 by Tessy Osorio) Mother Arthritis Family History: Reports: No pertinent history Review of Systems All systems negative except as indicated General: Denies: Chills, Fever, Sweats Eyes: Denies: Visual changes - bilaterally, Diplopia ENT: Denies: Rhinorrhea, Sore throat Cardiovascular: Denies: Chest pain, Palpitations Respiratory: Denies: Dyspnea, Cough, Dyspnea on exertion Gastrointestinal: Reports: Nausea. Denies: Abdominal pain, Vomiting, Diarrhea Genitourinary: Denies: Dysuria, Hematuria, Frequency Musculoskeletal: Denies: Back pain, Extremity Pain Skin: Denies: Rash, Wounds Neurological: Denies: Headache, Weakness, Numbness Physical Exam Vital Signs/Narrative: Vital Signs Temp Pulse Resp BP Pulse Ox 03/31/20 21:53 97.8 F 95 18 122/57 H 97 Inital Vital Signs reviewed: Yes General: Well nourished, Well developed, No Acute Distress Head: Normocephalic, Atraumatic Eyes: Perrl, EOMI ENT: Moist mucous membranes, No rhinorrhea Neck: Supple, Nontender Cardiovascular: Regular rate, Regular rhythm, No murmurs Respiratory: No distress, CTA bilaterally, Chest nontender Abdomen: Soft, Nontender, Nondistended Back: Nontender, Normal Inspection Extremities: Nontender, No edema, - - She does have generalized weakness of all 4 extremities. No extremity worse than the other. Sensation intact. Skin: Normal color, No rash Neurological: Alert, Normal Sensation, Confused, - - Oriented to person, place but not time. Negative for: Lethargic, Parasthesia Psychological: Normal affect, Normal Mood Diagnostic/Tx/Re-eval - EKG Initial EKG Interpretation: - - Rate of 93 bpm and normal sinus rhythm. GA interval of 110. QTC of 514. QRS of 120 with a left anterior fascicular block. No significant ST elevations or depressions appreciated. No T wave abnormalities. - Medical Decision Making Patient presents the emerge department for general decline. She does not really have any complaints at time of arrival to the ED. I did speak to her doctor was taking care of her in the TCU unit. They want her to be further evaluated and do not feel that she is getting appropriate care at their unit currently. Otherwise vital signs within normal limits here physical exam is benign. Lab work did not reveal any significant acute abnormality to explain patient's symptoms. She did have a CT scan of her head as well as her chest and abdomen as the outpatient. Due to the seemingly failure to thrive will bring her into the hospital for further evaluation and management. Otherwise has been stable throughout ED stay. Unfortunately this just could be chronic issues from her previous stroke. Will discuss with hospitalist and plan for admission. ED Disposition - Plan for ED Patient: Disposition: Acute Care Hospital [facility] Diagnosis: Failure to thrive, Confusion Referrals: Ab Escobar MD [Primary Care Provider] -
[2020-03-31 23:54] VITALS: BP 124/57; PULSE 85; RESP 22; O2SAT 97
[2020-03-31 23:54] LABS: Bacteria 0 SEEN /hpf (None Seen); Mucous, Urine 0 SEEN /hpf (<or=2+); Squamous Epithelial Cells - UA 0 SEEN /hpf (5-10)
[2020-03-31 23:58] LABS: Color, Urine Yellow (Yellow); Glucose, Dipstick Normal (Normal); Ketone-Dipstick Negative (Negative); Leukocyte Esterase-Dipstick 25 /ul (Negative); Nitrite-Dipstick Negative (Negative); Occult Blood-Urine 10 /ul (Negative); Protein-Dipstick Negative (Negative); Urine Bilirubin Dipstick Negative (Negative); Urine Clarity Clear (Clear); Urine Urobilinogen Normal (Normal)
[2020-04-01] VITALS (17 sets, daily range): BP systolic 105–173; BP diastolic 46–70; PULSE 64–94; RESP 16–18; TEMP 36.1–36.7; O2SAT 93–98; BMI 33.9
[2020-04-01 00:07] LABS: Absolute Neutrophil Count 8.3 X10^3/uL (2.0-7.7); Basophil# 0.06 X10^3/uL; Basophil% 0.5 % (0-1); Eosinophil# 0.11 X10^3/uL; Hematocrit 32.9 % (37-47); Hemoglobin 10.5 g/dL (12.0-15.0); Lymphocyte % 11.3 % (19-41); Mean Corp Hgb Conc 31.9 g/dL (32-36); Mean Corpuscular Hgb 29.8 pg (27.0-32.0); Mean Corpuscular Volume 93.5 fL (81-99); Mean Platelet Vol. 10.6 fl (6.2-12.0); Monocyte# 1.61 X10^3/uL; NRBC Flagged by Analyzer 0 % (0-5); Neutrophil # 8.28 X10^3/uL (2.7-7.7); Neutrophil % 72.2 % (47-70); POSITIVE DIFFERENTIAL YES; Platelet Count 235 K/mm3 (150-450); RBC Distribution Width CV 14.4 % (11.6-14.6); RBC Distribution Width SD 49.3 fl (35.1-43.9); Red Blood Count 3.52 M/mm3 (4.2-5.4); White Blood Count 11.5 K/mm3 (4.4-11.0)
[2020-04-01 00:09] LABS: Differential Indicated SCAN CRITERIA MET
[2020-04-01 00:10] LABS: Red Blood Cells-Urine 0-5 SEEN /hpf (0-5); White Blood Cells 0-5 SEEN /hpf (0-5)
[2020-04-01 00:18] LABS: ALB/GLOB Ratio 0.6 RATIO (0.9-2.4); AST(SGOT) 16 U/L (15-37); Alanine Aminotransfer ALT/SGPT 12 U/L (13-56); Albumin, Serum 2.1 g/dL (3.2-5.0); Alkaline Phosphatase 85 U/L (45-117); Anion Gap 2 (5-15); BUN 14 mg/dL (7-18); Calcium,Total 9.2 mg/dL (8.5-10.1); Chloride 103 mmol/L (98-107); EST Glomerular Filtration Rate 57 mL/min (>60); Est Glom Filt Rate - Afr Amer 69 mL/min (>60); Estimated Creatinine Clearance 40.04 ml/min; Globulin 3.6 g/dL (2.2-4.2); Glucose 107 mg/dL (74-106); Magnesium 1.8 mg/dL (1.6-2.6); Potassium 4.3 mmol/L (3.5-5.1); Protein, Total 5.7 g/dL (6.4-8.2); Sodium Level 139 mmol/L (136-145)
--- NOTE | 2020-04-01 00:57 | PCM.HP.STD ---
Problem List (1) Debility Status: Acute (2) HTN (hypertension) Status: Chronic Qualifiers: Hypertension type: essential hypertension Qualified Code(s): I10 - Essential (primary) hypertension (3) HLD (hyperlipidemia) Status: Chronic Qualifiers: Hyperlipidemia type: unspecified Qualified Code(s): E78.5 - Hyperlipidemia, unspecified (4) Obesity (BMI 30-39.9) Status: Chronic (5) Coronary artery disease Status: Chronic Qualifiers: Coronary Disease-Associated Artery/Lesion type: unspecified vessel or lesion type [place] vs. transplanted heart: unspecified whether [place] or transplanted heart Associated angina: angina presence unspecified Qualified Code(s): I25.10 - Atherosclerotic heart disease of [place] coronary artery without angina pectoris (6) Diabetes Status: Chronic Qualifiers: Diabetes mellitus type: type 2 Diabetes mellitus shelter insulin use: with terminal computer operator use Diabetes mellitus complication status: with other specified complication Qualified Code(s): E11.69 - Type 2 diabetes mellitus with other specified complication; Z79.4 - terminal computer operator (current) use of insulin (7) History of pacemaker Status: Chronic (8) History of cardiac defibrillator placement Status: Chronic (9) Anemia Status: Chronic Qualifiers: Anemia type: unspecified type (10) GI bleed Status: Chronic Qualifiers: GI bleed type/associated pathology: unspecified gastrointestinal hemorrhage type Qualified Code(s): K92.2 - Gastrointestinal hemorrhage, unspecified History of Present Illness Date of Admission: 04/01/20 Chief Complaint: Progressive weakness, intermittent confusion The patient is a 80 y/o F w/ PMHx: Chronic anemia, HTN, HLD, Diabetes mellitus type II, Hx Breast CA, CKD stage III, Hx DVT previously on xarelto (DVT US negative, d/c secondary to GI bleed), Hx CVA, CAD s/p AICD/pacemaker who presents to the [facility] ED on 04/01/20 from TCU with history of recent admission to the hospital on 03/03/2020 for acute urinary tract infection (citobacter), acute on chronic anemia secondary to GI bleed w/ d/c anticoagulation but allowance continued ASA, indeterminant troponin with ACS ruled out, CARLOS ALBERTO on CKD stage III with encephalopathy with unremarkable CT head with concurrent GI bleed noted with discontinuation of patient anticoagulation but resumption of daily aspirin in addition to TCU for ongoing therapy needs with ongoing decline more notably over the last week per TCU staff and physician report, generalized, diffuse with no specific focal deficits with intermittent confusion which appears to wax and wane even while in the emergency room patient upon ED physician evaluation was confused however upon hospitalist evaluation was appropriate to all orientation questions. Patient denies any loss of bowel or bladder. From review of records patient did have 03/27/2020 telemetry neurology consultation for generalized weakness with no improvement over the last 4 weeks since patient had been in rehab with noted recommendation to obtain lumbar puncture and CT of the cervical spine with and without contrast, ESR, folic acid and vitamin B12 level as well as total creatinine kinase. Work-up in the ED included T 97.8, heart rate 95, BP 124/57, respiratory rate 22, 97% on room air, CBC with WC 11.5, hemoglobin 10.5, platelet 235 with left shift, CMP with carbon oxide 34, glucose 107, troponin 0 0.031, unremarkable hepatic profile, unremarkable urinalysis, chest x-ray unchanged from prior with density in the mid and lower left lung consistent with chronic pleural-parenchymal scarring, EKG with sinus rhythm, rate controlled. Recent TCU directed 03/31/2020 CT brain with chronic involutional changes similar to prior with no acute intracranial acute findings and CT abdomen and pelvis without contrast obtained secondary to reported constipation and occasional nausea with noted moderate amount of fecal material in the colon, small left pleural effusion with left calcified pleural plaques and probable round atelectasis at the left lung base as well as mild degree of scarring at the right lung base otherwise no acute intra-abdominal findings. Patient was transitioned from TCU to ED for further evaluation and TCU noted inability to obtain all of the requested neurology evaluation as well as per family request. Past Medical History Past Medical History (Chronic Problems): Chronic Problems (Last Reviewed 05/22/19 @ 15:31 by Tessy Osorio) Coronary artery disease (Chronic) Stroke (Chronic) Breast cancer (Chronic) HTN (hypertension) (Chronic) HLD (hyperlipidemia) (Chronic) Obesity (BMI 30-39.9) (Chronic) History of right breast cancer (Chronic) History of stroke (Chronic) Diabetes (Chronic) History of pacemaker (Chronic) History of cardiac defibrillator placement (Chronic) Anemia (Chronic) GI bleed (Chronic) Medical History: Medical History (Last Reviewed 10/02/19 @ 15:31 by Tessy Osorio) Cardiac defibrillator in place Z95.810 Diabetes mellitus E11.9 Heart disease I51.9 Left arm surgery Pacemaker Z95.0 2018 Stroke I63.9 2018 heart cath 2018 Allergies amoxicillin [From Augmentin] Allergy (Verified 03/08/20 12:37) PT UNSURE OF REACTION clavulanic acid [From Augmentin] Allergy (Verified 03/08/20 12:37) PT UNSURE OF REACTION Iodinated Contrast Media [DYEE] Allergy (Verified 05/22/19 15:32) Anaphylaxis levofloxacin [From Levaquin] Allergy (Verified 03/15/20 15:48) Upset Stomach loratadine [From Claritin] Allergy (Verified 03/08/20 12:37) PT UNSURE OF REACTION hydrocodone bitartrate [From Vicodin] Adverse Reaction (Verified 05/22/19 15:32) Nausea/Vom/Diarrhea iodine Adverse Reaction (Verified 03/08/20 12:37) Nausea/Vom/Diarrhea Home Medications: Ambulatory Orders Medication Instructions Recorded Acetaminophen [Tylenol] 650 mg PO Q4H PRN PRN 03/02/20 Anastrozole [Arimidex] 1 mg PO DAILY 03/02/20 Aspirin E.C. [Ecotrin] 81 mg PO DAILY@0800 03/02/20 Atorvastatin Calcium [Lipitor] 80 mg PO QHS 03/02/20 Calcium Carbonate 600 mg PO DAILY 03/02/20 Cholecalciferol (VIT D3) [Vitamin 1,000 unit PO DAILY 03/02/20 D3] Insulin Detemir [Levemir Flextouch] 35 unit SQ DAILY 03/02/20 Insulin Lispro [Humalog KwikPen] 5 unit SQ TID 03/02/20 Insulin Lispro [Humalog KwikPen] See Protocol SQ ACHS 03/02/20 Isosorbide Mononitrate [Isosorbide 30 mg PO DAILY 03/02/20 Mononitrate ER] Losartan Potassium [Cozaar] 25 mg PO DAILY 03/02/20 Magnesium Hydroxide [Milk of 30 ml PO DAILY PRN PRN 03/02/20 Magnesia] Melatonin 6 mg PO QHS 03/02/20 Metoprolol Succinate [Toprol Xl] 50 mg PO DAILY 03/02/20 Ondansetron HCl [Zofran] 4 mg PO Q6H PRN PRN 03/02/20 Polyethylene Glycol 3350 17 gm PO BID 03/02/20 Prednisone 20 mg PO DAILY 03/02/20 Promethazine HCl 25 mg PO DAILY PRN PRN 03/02/20 Sodium Phosphate,[place]-Dibasic 1 bottle MA DAILY PRN PRN 03/02/20 [Fleet Enema] Tramadol HCl [Ultram] 50 mg PO Q6H PRN PRN 03/02/20 Cephalexin [Keflex] 500 mg PO Q12 03/06/20 Ferrous Sulfate 325 mg PO 1200,1700 03/06/20 Fluconazole [Diflucan] 200 mg PO DAILY 03/06/20 Furosemide [Lasix] 40 mg PO DAILY #0 03/06/20 Pantoprazole Sodium [Protonix] 40 mg PO BID 03/06/20 Sucralfate [Carafate] 1 gm PO 1HR_ACHS 03/06/20 Tamsulosin HCl [Flomax] 0.4 mg PO DAILY@1730 03/06/20 Surgical History: Surgical History (Last Reviewed 05/22/19 @ 15:31 by Tessy Osorio) History of appendectomy Z98.890, Z90.49 History of cataract extraction Z98.49 History of cholecystectomy Z98.890, Z90.49 History of hernia repair Z98.890, Z87.19 History of open heart surgery Z98.890 History of tonsillectomy Z98.890, Z90.89 Surgical History: appendectomy, cataract, cholecystectomy, coronary bypass surgery, herniorrhaphy, pacemaker implantation, tonsillectomy, - - Left arm surgery. 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 Smoking Status: Never smoker Tobacco Use: Non-smoker Alcohol: None Drugs: None - *Family History Maternal Family History: Family History (Last Reviewed 05/22/19 @ 15:31 by Tessy Osorio) Mother Arthritis History Items: No pertinent history Paternal Family History: Family History (Last Reviewed 05/22/19 @ 15:31 by Tessy Osorio) Mother Arthritis History Items: No pertinent history Review of Systems Constitutional: Reports: Weakness, Fatigue. Denies: Anorexia, Chills, Fever, Malaise, Weight Change HEENT: Denies: Head Aches, Sinus Congestion, Sinus Drainage Cardiovascular: Denies: Chest Pain, Palpitations Respiratory: Denies: Cough, Shortness of breath at rest, Sputum production Gastrointestinal: Denies: Abdominal Pain, Nausea, Vomiting Genitourinary: Denies: Dysuria Musculoskeletal: Denies: Joint Pain, Joint Tenderness, Muscle pain Skin: Denies: Rash, Wounds Neurological: Reports: Confusion, - - Generalized diffuse weakness.. Denies: Focal weakness, Numbness, Tingling Psychiatric: Denies: Anxiety, Depression, Homicidal Ideations, Suicidal Ideations Hematologic/ Lymphatic: Reports: Anemia, Easy Bruising, Easy Bleeding VTE Information - Inpt Only VTE Present on Admission: No VTE Mechan Device Prophylaxis: SCD's VTE Pharm Prophylaxis ordered?: No Reason prophylaxis not ordered:: Medical Contraindication Patient Problems: Active and Suspected Problems (Last Reviewed 05/22/19 @ 15:31 by Tessy Osorio) Debility (Acute) Candidiasis (Acute) Upper gastrointestinal bleed (Acute) Guaiac positive stools (Acute) Gastric cardia ulcer (Acute) Acute kidney injury (Acute) Failure to thrive (Acute) Confusion (Acute) Subjective: Seated upright in the ED bed, no acute distress, notes being mildly fatigued. Objective: Physical Examination: General: awake, alert, oriented x [address], year, month, president but had been confused for ED physician and cooperative, seated upright in the ED bed in no apparent distress. Skin: normal color, turgor, no icterus, cyanosis. HEENT: AT/NC, EOMI, PERRLA, MMM, no carotid bruits or JVD noted. Lungs: CTA bilaterally, moderate effort, moderate decrease BL bases, no rales, ronchi or wheezing. Heart: Regular rate and rhythm; no gallop, rub audible. Abdomen: soft, obese, NTTP, ND, normal BS, no HSM. Extremities: no cyanosis, clubbing, or edema. Neurological: patient awake, alert, oriented as noted; cognitive function currently appears intact but had been confused for the ED physician and could not answer all orientation questions appropriately; pupils equally reactive to light and accomodation; cranial nerves II-XII grossly normal, moving all 4 extremities, no specific focal deficit but diffuse generalized weakness, negative Babinski's, no evidence of dysarthria, mild drift bilateral upper and lower extremities although symmetric, some difficulty with right upper extremity evaluation secondary to discomfort with prior injury, tone decreased diffusely, sensation intact. Psychiatric: affect appears fatigued otherwise normal, no acute evidence of depressive or anxiety feelings. - Physical Exam Vitals/I&O's: Vital Signs Temp Pulse Resp BP Pulse Ox 97.8 F 85 22 H 124/57 H 97 03/31/20 21:53 03/31/20 23:54 03/31/20 23:54 03/31/20 23:54 03/31/20 23:54 Oxygen Flow Rate (L/min) 4 Oxygen Delivery Method Room Air Weight: 209 lb 3.499 oz Body Mass Index (BMI) 35.9 Finger Stick Blood Glucose 230 Laboratory Results 03/31/20 23:36: WBC 11.5 H, RBC 3.52 L, Hgb 10.5 L, Hct 32.9 L, MCV 93.5, MCH 29.8, MCHC 31.9 L, RDW Std Deviation 49.3 H, RDW Coeff of Gunnar 14.4, Plt Count 235, MPV 10.6, Immature Gran % (Auto) 1.000 H, Neut % (Auto) 72.2 H, Lymph % (Auto) 11.3 L, [place] % (Auto) 14.0 H, Eos % (Auto) 1.0, Baso % (Auto) 0.5, Absolute Neuts (auto) 8.3 H, Absolute Lymphs (auto) 1.30, Nucleated RBC % 0, Differential Comment COMMENT 03/31/20 23:36: Sodium 139, Potassium 4.3, Chloride 103, Carbon Dioxide 34.0 H, Anion Gap 2 L, BUN 14, Creatinine 1.00, Estim Creat Clear Calc 40.04, Est GFR (MDRD) Af Amer 69, Est GFR (MDRD) Non-Af 57 L, BUN/Creatinine Ratio 14.0, Glucose 107 H, Calcium 9.2, Magnesium 1.8, Total Bilirubin 0.60, AST 16, ALT 12 L, Alkaline Phosphatase 85, Troponin I 0.031, Total Protein 5.7 L, Albumin 2.1 L, Globulin 3.6, Albumin/Globulin Ratio 0.6 L 03/31/20 23:40: Urine Color Yellow, Urine Clarity Clear, Urine pH 5.0, Ur Specific [place] 1.010, Urine Protein Negative, Urine Glucose (UA) Normal, Urine Ketones Negative, Urine Occult Blood 10 H, Urine Nitrite Negative, Urine Bilirubin Negative, Urine Urobilinogen Normal, Ur Leukocyte Esterase 25 H, Urine RBC 0-5 SEEN, Urine WBC 0-5 SEEN, Ur Squamous Epith Cells 0 SEEN, Urine Bacteria 0 SEEN, Urine Mucus 0 SEEN Assessment/Plan All Active Problems (Last Reviewed 05/22/19 @ 15:31 by Tessy Osorio) Debility (Acute) Candidiasis (Acute) Upper gastrointestinal bleed (Acute) Guaiac positive stools (Acute) Gastric cardia ulcer (Acute) Acute kidney injury (Acute) Failure to thrive (Acute) Confusion (Acute) Osteopenia (Acute) Breast cancer, right (Resolved) Facial droop (Acute) Generalized weakness (Acute) Multiple contusions (Acute) Acute kidney failure (Acute) Troponin I above reference range (Acute) UTI (urinary tract infection) (Acute) The patient is a 80 y/o F w/ PMHx: Chronic anemia, HTN, HLD, Diabetes mellitus type II, Hx Breast CA, CKD stage III, Hx DVT previously on xarelto (DVT US negative, d/c secondary to GI bleed), Hx CVA, CAD s/p AICD/pacemaker who presents to the [facility] ED on 04/01/20 from TCU with history of recent admission to the hospital on 03/03/2020 for acute urinary tract infection (citobacter), acute on chronic anemia secondary to GI bleed w/ d/c anticoagulation but allowance continued ASA, indeterminant troponin with ACS ruled out, CARLOS ALBERTO on CKD stage III with encephalopathy with unremarkable CT head with concurrent GI bleed noted with discontinuation of patient anticoagulation but resumption of daily aspirin in addition to TCU for ongoing therapy needs with ongoing decline more notably over the last week per TCU staff and physician report, generalized, diffuse with no specific focal deficits with intermittent confusion. 1. Generalized weakness, unclear specific etiology: We will admit to PCU, given recent neurology evaluation will continue to pursue the requested interventions including CT scan of the cervical spine (requested with and without) without contrast specifically as patient has severe contrast allergy, obtain lumbar puncture to rule out any indication of GBS, request electrodiagnostic studies with nerve conduction and EMG if available and patient otherwise may need to defer to outpatient, recent vitamin B12 223 which is low normal and folic acid level still pending but drawn on 03/30/2020, recent 03/30/2020 ESR 16, will obtain CRP, recent 03/30/2020 total creatinine kinase 64, obtain PT, OT consultations, maintain on fall precautions, positional changes. 2. Chronic anemia, iron deficiency anemia with history of recent GI bleed: Admission hemoglobin 10.5, baseline appears 10-11, stable, previously earlier in February had been as low as 7 secondary to associated GI bleed, continue iron supplementation as well as Carafate and Protonix 40 mg twice daily, trend CBC. 3. Recent Citrobacter UTI: Resolved, completed antibiotic therapy, ED presentation urinalysis unremarkable. 4. History of CVA: Per recent mission concern for possible TIA with unremarkable work-up at that time, will continue baby aspirin only as recent GI bleed, had been anticoagulated but this was previously held, continue hypertensive and diabetic regimen as well as patient statin therapy. 5. History of DVT: Previously on Xarelto, recent duplex ultrasounds during prior admission unremarkable, anticoagulation held secondary to GI bleed. 6. CAD: Status post AICD/pacemaker, will continue baby aspirin only, statin therapy, metoprolol, losartan, statin therapy. 7. Diabetes mellitus type II: Hold oral home regimen, continue home insulin regimen, ADA diet, accu checks w/ ISS. 8. Hypertension: Continue home regimen including Lasix, losartan, metoprolol, isosorbide with hold parameters, PRN hydralazine. 9. Hyperlipidemia: Continue home statin regimen. 10. History of breast cancer: We will continue patient home Arimidex, noted to be in remission, encourage continued routine outpatient follow-up with her oncologist as needed. 11. DVT prophylaxis: SCDs, defer chemoprophylaxis given recent GI bleed history. 12. CODE status: Patient IVETTE is her son and living will is currently in place. Discussed CODE status at length including difference between FULL code, DNR-CCA and DNR-CC status. Following discussions about the differences in these status, requested continuation of DNR CCA, no intubation status. When discussing these items patient had complete orientation as noted. Advanced Care Planning Face to Face Time: 16 minutes. OBSV E&M: 92480 Initial observation care L3 Procedures: 01028 Advncd Care Plan 30 Min
[2020-04-01 01:39] LABS: Magnesium 1.7 mg/dL (1.6-2.6)
[2020-04-01] MEDS: Ondansetron 4 MG/2 ML Vial IV (02:44)
[2020-04-01] MEDS: 0.9% Saline Lock 10 ML Syringe IV (02:44)
--- NOTE | 2020-04-01 05:55 | RAD_ITS ---
PROCEDURE: Fluoroscopic guided Lumbar Puncture. DATE: 04/01/2020 CLINICAL INDICATION: PHYSICIAN: Wiliam Hernandez M.D. MEDICATIONS: 1% lidocaine administered subcutaneously for local anesthesia. ACCESS SITE: Lower posterior back. NEEDLE: 22-gauge spinal needle. SPECIMEN: Approximately 13 mL clear]CSF fluid. FLUOROSCOPY TIME (if supplied): (1:24) minutes/seconds COMPLICATIONS: None immediate. The risks, benefits, and alternatives to the procedure were explained to the patient. The specific risks of bleeding, infection, and neurovascular injury were detailed and accepted. Witnessed informed consent was obtained. The patient was placed on the fluoroscopic table in the prone position. The level for needle entry was determined and marked. The overlying skin was cleaned and prepped in the usual sterile fashion. 2% lidocaine was administered subcutaneously for local anesthesia. Under fluoroscopic guidance a 22-gauge spinal needle was advanced. The thecal sac was entered at the L3- L4 vertebral level. The inner stylet was removed. There was spontaneous flow of clear CSF fluid. The patient was placed in a reversed Trendelenburg position. Approximately 13 mL of cerebrospinal fluid was collected using gravity. The specimen was collected and submitted to the laboratory for further evaluation. The needle was withdrawn,. Hemostasis was achieved and a sterile dressing placed. The patient tolerated the procedure well without any immediate complications. The patient was placed supine with head elevated and returned to the floor in stable condition. RAD/Fluoro Guided Lumbar Puncture IMPRESSION: Successful fluoroscopic-guided lumbar puncture. Electronically Signed: Wiliam Hernandez, at 10:36 EDT , Service support ,
[2020-04-01 06:12] LABS: Absolute Lymphocyte Count 1.51 X10^3/uL (0.83-4.51); Basophil# 0.08 X10^3/uL; Basophil% 0.8 % (0-1); Eosinophil# 0.16 X10^3/uL; Eosinophils% 1.6 % (0-5); Hematocrit 36.8 % (37-47); Hemoglobin 11.3 g/dL (12.0-15.0); Lymphocyte # 1.51 X10^3/ul (4.0); Lymphocyte % 14.8 % (19-41); Mean Corp Hgb Conc 30.7 g/dL (32-36); Mean Corpuscular Volume 94.4 fL (81-99); Mean Platelet Vol. 10.2 fl (6.2-12.0); Monocyte# 1.36 X10^3/uL; Monocyte% 13.4 % (0-10); NRBC Flagged by Analyzer 0 % (0-5); Neutrophil # 6.98 X10^3/uL (2.7-7.7); Neutrophil % 68.5 % (47-70); Platelet Count 261 K/mm3 (150-450); RBC Distribution Width CV 14.4 % (11.6-14.6); RBC Distribution Width SD 50.3 fl (35.1-43.9); White Blood Count 10.2 K/mm3 (4.4-11.0)
[2020-04-01 06:13] LABS: Oligoclonal Banding Comment REF LAB
[2020-04-01] MEDS: Sucralfate 1 GM Tablet PO ×4 (06:32→21:39)
[2020-04-01 06:44] LABS: ALB/GLOB Ratio 0.6 RATIO (0.9-2.4); AST(SGOT) 19 U/L (15-37); Alanine Aminotransfer ALT/SGPT 13 U/L (13-56); Albumin, Serum 2.2 g/dL (3.2-5.0); Alkaline Phosphatase 90 U/L (45-117); Anion Gap 1 (5-15); BUN 16 mg/dL (7-18); BUN/Creat Ratio 14.8 RATIO (10-20); Calcium,Total 9.3 mg/dL (8.5-10.1); Chloride 100 mmol/L (98-107); Creatinine, Serum 1.08 mg/dL (0.55-1.02); EST Glomerular Filtration Rate 52 mL/min (>60); Est Glom Filt Rate - Afr Amer 63 mL/min (>60); Estimated Creatinine Clearance 37.07 ml/min; Globulin 3.8 g/dL (2.2-4.2); Glucose 166 mg/dL (74-106); Potassium 4.1 mmol/L (3.5-5.1); Sodium Level 138 mmol/L (136-145)
[2020-04-01 06:45] LABS: Bedside Glucose 170 mg/dL (70-110)
--- NOTE | 2020-04-01 07:58 | NURSING ---
TELEPHONE CONSENT FOR LP OBTAINED FROM SON WITH RAISA, RT TAMMY, ALSO PRESENT.
--- NOTE | 2020-04-01 08:00 | CT_ITS ---
STUDY: CT CERVICAL SPINE WITHOUT CONTRAST REASON FOR EXAM: Female, 80 years old. WEAKNESS, MENTAL STATUS CHANGES, CKD, DVT, BREAST CA, DB,CAD, PACEMAKER, CVA,HTN RADIATION DOSAGE (If Supplied By Facility): CTDIvol = ( 29.06 ) mGy, DLP = ( 633.31 ) mGycm TECHNIQUE: High resolution transaxial imaging was performed without contrast material. Sagittal and coronal images were reconstructed. Individualized dose optimization techniques were used for this CT. COMPARISON: None FINDINGS: Normal craniovertebral junction. There are degenerative changes of the anterior atlantoaxial articulation. Normal odontoid process. Normal cervical lordosis. Multilevel spondylosis and uncovertebral arthrosis. C2-3: There is evidence of facet joint osteoarthritis and hypertrophy worse on the right side. Uncovertebral arthrosis. Moderate degree of right neural foraminal stenosis. C3-4: Marked degree of disc space narrowing. Facet joint osteoarthritis and hypertrophy worse on the left side. There is a marked degree of left neural foraminal stenosis. C4-5: Moderate degree of disc space narrowing. Spondylosis. Facet joint osteoarthritis. Uncovertebral arthrosis. Mild degree of bilateral neural foraminal stenosis. C5-6: Marked in degree of disc space narrowing. Spondylosis. Uncovertebral arthrosis. Moderate degree of bilateral neural foraminal stenosis worse on the left side. C6-7: Marked degree of disc space narrowing. Spondylosis. Uncovertebral arthrosis. Atherosclerotic calcification of the carotid bifurcation. CT/Spine Cervical without Contras IMPRESSION: Multilevel degenerative changes, as described above. Multilevel bilateral neural foraminal stenosis as described. Electronically Signed: Wiliam Hernandez, at 10:04 EDT , Service support ,
--- NOTE | 2020-04-01 09:26 | CYSPIN_PTH ---
PATIENT: REDDY WHITT LOC: [facility] U#:[id number] AGE/SX: 80/F ROOM: [facility] RE04/01/[address]: Dr. Binta Rebollar MD : [id number] BED: 1 DIS: 04/04/2020 SPEC #: [id number] RECD: 04/01/20 10:12 STATUS: JUSTIN REFranco #: [id number] HANANE: 04/01/20 09:[address]: Armando Anthony DEPT: CYTOLOGY RECD BY: Naeem Ansari ENTERED: 04/01/20 10:13 SP TYPE: CYSPIN FL OTHR DR: MD Ab Blackwell MD Tissues: Cerebrospinal Fluid Procedures: Pap Stain (control) Special Stain Group II Cytospin Fluid HEADER OPERATION: Lumbar puncture PRE-OP DIAGNOSIS: Weakness TISSUE SUBMITTED: Cerebrospinal fluid for cytology DIAGNOSIS CYTOLOGY Cerebrospinal fluid for cytology (cytospin): Negative for malignant cells. No evidence of inflammation. AM:domingo 04/02/20 CYTOLOGY STUDY Slides are reviewed. CYTOLOGY GROSS Received is 3 ml of clear colorless fluid labeled with the patient's name and and designated per the requisition as CSF. Submitted for cytology preparation. / domingo 04/01/20 TC:5 CPT: 81639
[2020-04-01 09:40] LABS: Cytology, Body Fluid / CSF SEE PATHOLOGY REPORT
--- NOTE | 2020-04-01 09:44 | NURSING ---
REPORT CALLED TO MIGUEL ÁNGEL NEW. PT BECAME NAUSEOUS AFTER FINISHING LP AND WHILE RETURNING TO THE FLOOR. OTHERWISE, PT TOLERATED WELL. O2 APPLIED DURING LP FOR C/O SOB.
[2020-04-01 10:15] LABS: Appearance CSF (character) CLEAR (Clear); CSF Color COLORLESS (Colorless); Tested Tube # 4
[2020-04-01 10:19] LABS: RBC Count, Spinal Fluid 2 /mm-3 (None seen); White Count, CSF 2 /mm-3 (0 - 5)
[2020-04-01 11:00] LABS: Body Fluid QC Type(s) BF2Q; Monocytes,CSF 100 % (15 - 45)
[2020-04-01] MEDS: Anastrozole 1 MG Tablet PO (11:00)
[2020-04-01] MEDS: Aspirin E.C. 81 MG Tablet PO (11:00)
[2020-04-01] MEDS: predniSONE 20 MG Tablet PO (11:00)
[2020-04-01] MEDS: Furosemide 40 MG Tablet PO (11:01)
[2020-04-01] MEDS: Pantoprazole Sodium 40 MG Tablet PO ×2 (11:01→21:40)
[2020-04-01] MEDS: Metoprolol(XL)Succ 50 MG Tablet PO (11:01)
[2020-04-01] MEDS: Losartan Potassium 25 MG Tablet PO (11:01)
[2020-04-01] MEDS: Isosorbide Mononitrate 30 MG Tablet PO (11:01)
[2020-04-01 11:10] LABS: Bedside Glucose 208 mg/dL (70-110)
[2020-04-01 11:28] LABS: Glucose Spinal Fluid 95 mg/dL (40-75)
--- NOTE | 2020-04-01 11:40 | CCHN_ITS ---
Hospitalist Note Seen and examined. 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 She had SOC neurology consult done in February 2020 during previous admission. Was recommended baby aspirin and high intensity statin as there was low probability for stroke with similar presentation of generalized weakness and encephalopathy. Patient cannot have MRI or CTA head and neck with contrast because of pacemaker and contrast allergy. Xarelto not indicated as he did not have history of DVT or DVT. Patient had LP done for history of bilateral lower extremity weakness, generalized weakness encephalopathy for suspicion of GBS Pulmonary test shows 2 WBC, 2 RBC, monocytes 100%, total protein 159. Other test IgG index and oligoclonal bands are pending. SOC neurology consult requested. B12 223 and replaced. CK normal. CRP elevated 102. UA LE 25. Currently she does not have dysuria although she has history of recurrent UTI with Citrobacter. On exam General: Alert, Oriented x3, Cooperative although slow to respond. HEENT: Atraumatic, PERRLA, EOMI, Normocephalic Oral: No Gingival or Mucosal Lesions/ Ulcerations Neck: Supple, No JVD, Negative Carotid Bruits Lungs: Air entry diminished in bilateral lung bases. No crepitation/rhonchi Cardiovascular: Regular rate, Regular Rhythm, Normal S1, Normal S2, No murmurs Abdomen: Bowel Sounds Present, Soft, Non Tender, Non-Distended : No renal angle tenderness. No suprapubic tenderness. Extremities: Bilateral leg edema, Capillary Refill Less than 3 Seconds Skin: No rashes, No breakdown Musculoskeletal: No Tenderness to Palpation of Joints or Extremities Neurological: Chronic left facial droop. Bilateral lower extremity weakness more on right upper and lower extremity. Decreased sensation in both lower extremity weakness. No neck rigidity. Deep Tendon Reflexes 2+/4 and Symmetrical, Neuro grossly intact Psych/Mental Status: Normal Affect, Appropriate. I think her lower extremity weakness generalized weakness secondary to physical deconditioning, not participating in PT and OT. Nursing staff further notified that EMG/nerve conduction studies cannot be done until mid-April. 8 and at one time only to extremities can be done. Previously patient was on Xarelto for history of DVT but recent duplex ultrasound found unremarkable and therefore discontinued. Other multiple comorbidities include breast cancer, hypertension, dyslipidemia, diabetes mellitus type 2, coronary artery status post AICD, pacemaker and recent history of CVA: Multiple comorbidities complicates the present care and expect difficult and delay recovery
[2020-04-01 13:18] LABS: Pathologist Review Reviewed
[2020-04-01] MEDS: Tamsulosin HCl 0.4 MG Capsule PO (16:11)
[2020-04-01] MEDS: Ferrous Sulfate 325 MG Tablet PO (16:11)
[2020-04-01] MEDS: Insulin Lispro 100 UNIT/ML INSULN.PEN SC ×2 (16:17→21:38)
[2020-04-01 16:41] LABS: Bedside Glucose 291 mg/dL (70-110)
--- NOTE | 2020-04-01 16:58 | CT_ITS ---
STUDY: CT THORACIC SPINE WITHOUT CONTRAST REASON FOR EXAM: Female, 80 years old. BILATERAL LEG WEAKNESS. Hx of breast cancer, CABG, defibrillator, CVA, diabetes-insulin RADIATION DOSAGE (If Supplied By Facility): CTDIvol = ( 28.04 ) mGy, DLP = ( 961.67 ) mGycm TECHNIQUE: The patient was scanned in a multi detector CT scanner. High resolution imaging was performed. Images were obtained from to . Sagittal and coronal images were reconstructed. Individualized dose optimization techniques were used for this CT. COMPARISON: None. FINDINGS: There is multilevel degenerative disc disease and cervical spondylosis. Normal kyphosis of the thoracic spine. There is a dextroscoliosis of the thoracic spine. There is multilevel endplate spondylosis of the thoracic spine. There is multilevel degenerative disc disease with loss of the disc space heights. Multilevel ankylosis of the thoracic spine. There is a loculated left pleural effusion with calcified margins. CT/Spine Thoracic without Contras IMPRESSION: Prominent degenerative changes and ankylosis. No acute abnormalities. Electronically Signed: Homero Palm MD at 17:41 EDT , Service support ,
--- NOTE | 2020-04-01 16:58 | CT_ITS ---
STUDY: CT LUMBAR SPINE WITHOUT CONTRAST REASON FOR EXAM: Female, 80 years old. BILATERAL LEG WEAKNESS. Hx of breast cancer, CABG, defibrillator, CVA, diabetes-insulin RADIATION DOSAGE (If Supplied By Facility): CTDIvol = ( 45.04 ) mGy, DLP = ( 1455.15 ) mGycm TECHNIQUE: The patient was scanned in a multi detector CT scanner. High resolution transaxial imaging was performed. Sagittal and coronal images were reconstructed. Individualized dose optimization techniques were used for this CT. COMPARISON: None FINDINGS: Normal lumbar lordosis. There is no substantial scoliosis. Normal alignment of the lumbar vertebral bodies. No compression fractures. Pedicles and facet joints intact at all levels. Moderate multilevel degenerative disc disease. Vacuum phenomenon at L1-L2, L2-L3, L3-L4, L4-L5, and L5-S1. Multilevel prominent posterior marginal osteophytes and disc bulges. Multilevel facet joint degenerative disease. At L1-L2 no spinal stenosis. Neural foramina within normal limits. At L2-L3 osteophytes and disc bulge cause mild spinal stenosis worse to the right. Mild bilateral neural foraminal narrowing. At L3-L4, prominent osteophytes, disc bulge and facet joint hypertrophy result in moderate spinal stenosis best seen on axial image 54 and moderate bilateral neural foraminal narrowing. At L4-L5 similar findings result in moderate central canal stenosis best seen on axial image 66. Moderate bilateral neural foraminal narrowing. At L5-S1, no spinal stenosis. Adequate right neural foramina. Moderate to severe narrowing of the left neural foramina. Grossly normal sacroiliac joints. Soft tissues show no gross acute abnormality. Heavily calcified aorta. CT/Spine Lumbar without Contrast IMPRESSION: No acute abnormalities. Moderate multilevel degenerative disc disease. Multilevel spinal stenosis and neural foraminal narrowing as specified above. Electronically Signed: Homero Palm MD at 18:21 EDT , Service support ,
[2020-04-01] MEDS: Cyanocobalamin 500 MCG Tablet 1000 MCG PO (20:04)
[2020-04-01] MEDS: MELATONIN 3 MG TABLET 6 MG PO (21:40)
[2020-04-01] MEDS: Atorvastatin Calcium 80 MG Tablet PO (21:40)
[2020-04-01] MEDS: Polyethylene Glycol 3350 17 GM PACKET PO (21:40)
[2020-04-01 21:50] LABS: Bedside Glucose 400 mg/dL (70-110)
[2020-04-02] VITALS (12 sets, daily range): BP systolic 101–107; BP diastolic 41–64; PULSE 68–93; RESP 16–25; TEMP 36.4–36.9; O2SAT 93–98
[2020-04-02] MEDS: Sucralfate 1 GM Tablet PO ×3 (06:30→21:05)
[2020-04-02] MEDS: Insulin Lispro 100 UNIT/ML INSULN.PEN SC (06:32)
[2020-04-02 06:40] LABS: Bedside Glucose 278 mg/dL (70-110)
[2020-04-02 08:25] LABS: Absolute Lymphocyte Count 1.51 X10^3/uL (0.83-4.51); Absolute Neutrophil Count 5.4 X10^3/uL (2.0-7.7); Basophil# 0.06 X10^3/uL; Basophil% 0.8 % (0-1); Eosinophil# 0.05 X10^3/uL; Eosinophils% 0.6 % (0-5); Hematocrit 32.4 % (37-47); Hemoglobin 10.5 g/dL (12.0-15.0); Lymphocyte # 1.51 X10^3/ul (4.0); Lymphocyte % 18.9 % (19-41); Mean Corp Hgb Conc 32.4 g/dL (32-36); Mean Corpuscular Hgb 30.1 pg (27.0-32.0); Mean Corpuscular Volume 92.8 fL (81-99); Mean Platelet Vol. 9.8 fl (6.2-12.0); Monocyte# 0.86 X10^3/uL; Monocyte% 10.8 % (0-10); NRBC Flagged by Analyzer 0 % (0-5); Neutrophil # 5.41 X10^3/uL (2.7-7.7); Neutrophil % 67.6 % (47-70); Platelet Count 268 K/mm3 (150-450); RBC Distribution Width CV 14.3 % (11.6-14.6); RBC Distribution Width SD 48.9 fl (35.1-43.9); Red Blood Count 3.49 M/mm3 (4.2-5.4)
[2020-04-02 08:44] LABS: Anion Gap 3 (5-15); BUN 28 mg/dL (7-18); BUN/Creat Ratio 17.7 RATIO (10-20); Calcium,Total 9.1 mg/dL (8.5-10.1); Chloride 99 mmol/L (98-107); Creatinine, Serum 1.58 mg/dL (0.55-1.02); EST Glomerular Filtration Rate 34 mL/min (>60); Est Glom Filt Rate - Afr Amer 41 mL/min (>60); Estimated Creatinine Clearance 25.34 ml/min; Glucose 262 mg/dL (74-106); Potassium 3.8 mmol/L (3.5-5.1); Sodium Level 138 mmol/L (136-145)
[2020-04-02] MEDS: Aspirin E.C. 81 MG Tablet PO (09:49)
[2020-04-02] MEDS: predniSONE 5 MG Tablet 10 MG PO (09:50)
[2020-04-02] MEDS: Losartan Potassium 25 MG Tablet PO (09:50)
[2020-04-02] MEDS: Cyanocobalamin 500 MCG Tablet 1000 MCG PO (09:50)
[2020-04-02] MEDS: Anastrozole 1 MG Tablet PO (09:50)
[2020-04-02] MEDS: Isosorbide Mononitrate 30 MG Tablet PO (09:50)
[2020-04-02] MEDS: Metoprolol(XL)Succ 50 MG Tablet PO (09:51)
[2020-04-02] MEDS: Furosemide 40 MG Tablet PO (09:51)
[2020-04-02] MEDS: Polyethylene Glycol 3350 17 GM PACKET PO (09:51)
[2020-04-02] MEDS: Pantoprazole Sodium 40 MG Tablet PO ×2 (09:51→21:07)
[2020-04-02 12:02] LABS: Pathologist Review Reviewed
--- NOTE | 2020-04-02 12:59 | PCM.PN.HOSP ---
Patient Problems: Active and Suspected Problems (Last Reviewed 05/22/19 @ 15:31 by Tessy Osorio) Failure to thrive (Acute) Confusion (Acute) Subjective: Patient seen and examined. She had no complaints this morning. Review of signs otherwise negative. Neurology evaluated patient yesterday and concern was for probably some inflammatory processes of normal muscle or chronic steroid causing weakness. Neurology advised serum electrophoresis, SHELLIE, paraneoplastic markers and CT of thoracic and lumbar spine. Vitals/I&O's: Vital Signs Temp Pulse Resp BP Pulse Ox 98.4 F 91 17 107/64 94 04/02/20 09:27 04/02/20 11:17 04/02/20 09:27 04/02/20 09:27 04/02/20 09:27 Oxygen Flow Rate (L/min) 1 Oxygen Delivery Method Nasal Cannula Weight: 197 lb 8.547 oz Body Mass Index (BMI) 33.9 Finger Stick Blood Glucose 230 Intake and Output for Last 24 Hours 03/31/20 04/01/20 04/02/20 23:59 23:59 23:59 Intake Total 420 / 420 100 / 100 Output Total 2400 / 2400 200 / 200 Balance -1979 / -1979 -100 / -100 General: Alert, Oriented x3, Cooperative, No apparent distress, Lethargic HEENT: Atraumatic, PERRLA, EOMI, Normocephalic Oral: Dry Mucosa Neck: Supple, No JVD, Negative Carotid Bruits Lungs: Clear to auscultation, Normal air movement Cardiovascular: Regular rate, Regular Rhythm, Normal S1, Normal S2, No murmurs Abdomen: Bowel Sounds Present, Soft, Non Tender, Non-Distended, No Hepato-splenomegaly Extremities: No clubbing, No cyanosis, No edema, Capillary Refill Less than 3 Seconds Skin: No rashes, No breakdown Musculoskeletal: No Tenderness to Palpation of Joints or Extremities Lymphatic: No Cervical, Supraclavicular, or Inguinal Adenopathy Neurological: Cranial nerves II-XII grossly intact, - - power in LEs- 3/5, in UEs 4/5; no tremors or flaccidity Microbiology Past 72 Hours 04/01/20 09:23 Csf, Spinal Fluid Gram Stain - Final 04/01/20 09:23 Csf, Spinal Fluid CSF Culture - Preliminary No growth in 24 hours. Final to follow. Laboratory Results 03/31/20 23:36: Diff Path Review Reviewed 04/01/20 05:35: Total Protein (PEP) Pending, IgG Pending, IgA Pending, IgM Pending, Albumin (SHELLIE) Pending, Albumin/Globulin (SHELLIE) Pending, [id number] SHELLIE Pending, [id number] SHELLIE Pending, Beta-Globulins (SHELLIE) Pending, Gamma Globulins (SHELLIE) Pending, SHELLIE M-Bill Pending 04/01/20 05:35: Miscellaneous Test Pending 04/01/20 09:23: Miscellaneous Cytology SEE PATHOLOGY REPORT 04/01/20 09:23: CSF Comment Reviewed 04/01/20 16:09: POC Glucose 291 H 04/01/20 21:38: POC Glucose 400 H 04/02/20 06:30: POC Glucose 278 H 04/02/20 08:14: WBC 8.0, RBC 3.49 L, Hgb 10.5 L, Hct 32.4 L, MCV 92.8, MCH 30.1, MCHC 32.4 D, RDW Std Deviation 48.9 H, RDW Coeff of Gunnar 14.3, Plt Count 268, MPV 9.8, Immature Gran % (Auto) 1.300 H, Neut % (Auto) 67.6, Lymph % (Auto) 18.9 L, Culberson % (Auto) 10.8 H, Eos % (Auto) 0.6, Baso % (Auto) 0.8, Absolute Neuts (auto) 5.4, Absolute Lymphs (auto) 1.51, Nucleated RBC % 0 04/02/20 08:14: Sodium 138, Potassium 3.8, Chloride 99, Carbon Dioxide 36.0 H, Anion Gap 3 L, BUN 28 H, Creatinine 1.58 H, Estim Creat Clear Calc 25.34, Est GFR (MDRD) Af Amer 41 L, Est GFR (MDRD) Non-Af 34 L, BUN/Creatinine Ratio 17.7, Glucose 262 H, Calcium 9.1 Diagnostic Data Chest X-Ray 03/31/20 22:45 IMPRESSION: No change. Density of the mid and lower left lung probably represents chronic pleural-parenchymal scarring. Electronically Signed: Homero Palm MD at 23:48 EDT , Service support , Lumbar Puncture Fluoroscopy 04/01/20 05:55 IMPRESSION: Successful fluoroscopic-guided lumbar puncture. Electronically Signed: Wiliam Mary, at 10:36 EDT , Service support , Cervical Spine CT 04/01/20 08:00 IMPRESSION: Multilevel degenerative changes, as described above. Multilevel bilateral neural foraminal stenosis as described. Electronically Signed: Wiliam Mary, at 10:04 EDT , Service support , Lumbar Spine CT 04/01/20 16:58 IMPRESSION: No acute abnormalities. Moderate multilevel degenerative disc disease. Multilevel spinal stenosis and neural foraminal narrowing as specified above. Electronically Signed: Homero Palm MD at 18:21 EDT , Service support , Thoracic Spine CT 04/01/20 16:58 IMPRESSION: Prominent degenerative changes and ankylosis. No acute abnormalities. Electronically Signed: Homero Palm MD at 17:41 EDT , Service support , Current Medications Al Hydroxide/Mg Hydroxide (Mylanta Ii) 30 ml PO Q6H PRN PRN PRN Reason: Gastric Burning Albuterol Sulfate (Ventolin Aerosols) 2.5 mg INHALATION Q2H PRN PRN PRN Reason: Dyspnea, wheezing Anastrozole (Arimidex) 1 mg PO DAILY [facility] Last Admin: 04/02/20 09:50 Dose: 1 mg Documented by: Aspirin (Ecotrin) 81 mg PO DAILY@0800 [facility] Last Admin: 04/02/20 09:49 Dose: 81 mg Documented by: Atorvastatin Calcium (Lipitor) 80 mg PO QHS [facility] Last Admin: 08/12/20 21:40 Dose: 80 mg Documented by: Cyanocobalamin (Vitamin B12) 1,000 mcg PO DAILY@0800 [facility] Last Admin: 04/02/20 09:50 Dose: 1,000 mcg Documented by: Ergocalciferol (Vitamin D) 50,000 unit PO Q7D@1000 [facility] Last Admin: 04/01/20 20:04 Dose: 50,000 unit Documented by: Ferrous Sulfate (Ferrous Sulfate) 325 mg PO 1200,1700 [facility] Last Admin: 04/01/20 16:11 Dose: 325 mg Documented by: Furosemide (Lasix) 40 mg PO DAILY [facility] Last Admin: 04/02/20 09:51 Dose: 40 mg Documented by: Guaifenesin (Robitussin) 20 ml PO Q4H PRN PRN PRN Reason: COUGH Hydralazine HCl (Apresoline Iv) 10 mg IV Q4H PRN PRN PRN Reason: SBP > 160 Sodium Chloride () 250 mls @ 15 mls/hr IV .[id number] PRN PRN Reason: Saline Flush Sodium Chloride () 250 mls @ 15 mls/hr IV .[id number] PRN PRN Reason: Additional IVPB Infusion Insulin Glargine (Lantus (Bk)) 35 units SC DAILY [facility] Last Admin: 04/01/20 11:04 Dose: Not Given Documented by: Insulin Human Lispro (Humalog Kwikpen ([facility])) 0 unit SC [facility]; Protocol Last Admin: 04/02/20 06:32 Dose: 8 units Documented by: Isosorbide Mononitrate (Imdur) 30 mg PO DAILY [facility] Last Admin: 04/02/20 09:50 Dose: 30 mg Documented by: Losartan Potassium (Cozaar) 25 mg PO DAILY [facility] Last Admin: 04/02/20 09:50 Dose: 25 mg Documented by: Melatonin (Melatonin) 6 mg PO QHS [facility] Last Admin: 04/01/20 21:40 Dose: 6 mg Documented by: Metoprolol Succinate (Toprol Xl (Beta Corin)) 50 mg PO DAILY [facility] Last Admin: 04/02/20 09:51 Dose: 50 mg Documented by: Ondansetron HCl (Zofran) 4 mg IV Q8H PRN PRN PRN Reason: NAUSEA/VOMITING Last Admin: 04/01/20 02:44 Dose: 4 mg Documented by: Pantoprazole Sodium (Protonix) 40 mg PO BID [facility] Last Admin: 04/02/20 09:51 Dose: 40 mg Documented by: Polyethylene Glycol (Miralax) 17 gm PO BID [facility] Last Admin: 04/02/20 09:51 Dose: 17 gm Documented by: [facility] () [facility] T[facility] Stop: 04/13/20 07:59 Last Admin: 04/02/20 09:50 Dose: 10 mg Documented by: Prochlorperazine Edisylate (Compazine Iv) 5 mg IV Q4H PRN PRN PRN Reason: Breakthrough Nausea/Vomiting Psyllium Hydrophilic Mucilloid (Metamucil) 1 packet PO DAILY PRN PRN PRN Reason: Constipation Senna/Docusate Sodium (Senokot-S, Clarisa-Colace) 2 tablet PO BID PRN PRN PRN Reason: Constipation Sodium Biphosphate/Sodium Phosphate (Fleet Enema) 1 bottle RECTAL DAILY PRN PRN PRN Reason: Constipation Sodium Chloride () 10 - 40 ml IV UD PRN PRN Reason: SALINE FLUSH Last Admin: 04/01/20 02:44 Dose: 10 ml Documented by: Sucralfate (Carafate) 1 gm PO 1HR_ACHS [facility] Last Admin: 04/02/20 06:30 Dose: 1 gm Documented by: Tamsulosin HCl (Flomax) 0.4 mg PO DAILY@1730 [facility] Last Admin: 04/01/20 16:11 Dose: 0.4 mg Documented by: Throat Lozenges (Cepacol Sore Throat Lozenge) 1 lozenge MUCOUS MEM Q2H PRN PRN PRN Reason: SORE THROAT Tramadol HCl (Ultram) 50 mg PO Q6H PRN PRN PRN Reason: Pain (1-10) or Fever STROKE Vital Signs/Narrative: Vital Signs Temp Pulse Resp BP Pulse Ox 04/02/20 11:17 91 04/02/20 09:51 71 04/02/20 09:27 98.4 F 71 17 107/64 94 Medical Necessity - Tobacco Use Smoking Status: Never smoker Tobacco Use: Non-smoker Assessment/Plan All Active Problems (Last Reviewed 05/22/19 @ 15:31 by Tessy Osorio) Debility (Acute) Candidiasis (Acute) Upper gastrointestinal bleed (Acute) Guaiac positive stools (Acute) Gastric cardia ulcer (Acute) Acute kidney injury (Acute) Failure to thrive (Acute) Confusion (Acute) Osteopenia (Acute) Breast cancer, right (Resolved) Facial droop (Acute) Generalized weakness (Acute) Multiple contusions (Acute) Acute kidney failure (Acute) Troponin I above reference range (Acute) UTI (urinary tract infection) (Acute) # Debility due to generalised weakness patient stuill remains weak neurology consulted, adn requested for EMG and serum electrophoresis, as well as immunofluorescence. CT of the thoracic and lumgar spines were also ordered, as we as paraneoplastic profile. No bedside consultation available as there is no inhouse neurologist per neuro rec's, to continue vitamin B12 replacement. CT of the lumbar and thoracic spines showed multilevel spinal stenosis and neural foraminal narrowing as per CT lumbar spine patient was not interested in going to another facility to be evaluated by bedside neurology. She wants me to speak to her son for him to make the decision. PT/OT on board LP done, results pending 2. Chronic anemia: stable. hb is stable and is 10.5 today 3. history of CVA: on basby aspirin. due to history of GI bleed, not on any other anticoagulation. on statins.. 4. Histroy of DVT: xarelto on hold due to history of GI bleed 5. Hypertension on losartan, metoprolol and Imdur as well as Lasix. 6. Type 2 diabetes mellitus: Medications on hold. Insulin sliding scale. Checks AC at bedtime. 7. Hyperlipidemia: On statin. 8. History of breast cancer: On Arimidex. DVT prophylaxis: SCDs due to recent history of GI bleed.
[2020-04-02] MEDS: Ferrous Sulfate 325 MG Tablet PO ×2 (15:29→17:38)
[2020-04-02 15:48] LABS: Glucose 523 mg/dL (74-106)
[2020-04-02] MEDS: Insulin Lispro 100 UNIT/ML INSULN.PEN 10 UNIT SC (16:10)
[2020-04-02 16:50] LABS: Bedside Glucose > 500 mg/dL (70-110)
[2020-04-02] MEDS: 0.9% Saline Lock 10 ML Syringe IV (17:34)
[2020-04-02] MEDS: Tamsulosin HCl 0.4 MG Capsule PO (17:34)
[2020-04-02 18:21] LABS: Bedside Glucose > 500 mg/dL (70-110)
[2020-04-02 18:25] LABS: Glucose 590 mg/dL (74-106)
[2020-04-02 20:45] LABS: Bedside Glucose > 500 mg/dL (70-110)
[2020-04-02] MEDS: MELATONIN 3 MG TABLET 6 MG PO (21:06)
[2020-04-02] MEDS: Atorvastatin Calcium 80 MG Tablet PO (21:06)
[2020-04-02 21:54] LABS: Glucose 592 mg/dL (74-106)
[2020-04-02 21:56] LABS: Bedside Glucose > 500 mg/dL (70-110)
[2020-04-02 22:40] LABS: Glucose 551 mg/dL (74-106)
[2020-04-02 22:51] LABS: Bedside Glucose 450 mg/dL (70-110)
[2020-04-02 23:51] LABS: Bedside Glucose 405 mg/dL (70-110)
[2020-04-03] VITALS (14 sets, daily range): BP systolic 99–122; BP diastolic 43–70; PULSE 60–78; RESP 16–24; TEMP 36.1–37.1; O2SAT 94–99
[2020-04-03] MEDS: traZODone 50 MG Tablet PO (00:31)
[2020-04-03] MEDS: 0.9% Normal Saline 1,000 ML 999 ML IV (00:40)
[2020-04-03] MEDS: 0.9% Normal Saline 1,000 ML 125 ML IV ×4 (00:43→23:13)
[2020-04-03 00:50] LABS: Bedside Glucose 343 mg/dL (70-110)
[2020-04-03 01:56] LABS: Bedside Glucose 305 mg/dL (70-110)
[2020-04-03 02:51] LABS: Bedside Glucose 264 mg/dL (70-110)
[2020-04-03 05:01] LABS: Bedside Glucose 197 mg/dL (70-110)
[2020-04-03 05:51] LABS: Bedside Glucose 186 mg/dL (70-110)
[2020-04-03 05:56] LABS: Absolute Lymphocyte Count 2.06 X10^3/uL (0.83-4.51); Absolute Neutrophil Count 5.2 X10^3/uL (2.0-7.7); Basophil# 0.08 X10^3/uL; Basophil% 0.9 % (0-1); Eosinophil# 0.08 X10^3/uL; Eosinophils% 0.9 % (0-5); Hematocrit 31.9 % (37-47); Hemoglobin 10.1 g/dL (12.0-15.0); Lymphocyte # 2.06 X10^3/ul (4.0); Lymphocyte % 24.3 % (19-41); Mean Corp Hgb Conc 31.7 g/dL (32-36); Mean Corpuscular Hgb 29.5 pg (27.0-32.0); Mean Corpuscular Volume 93.3 fL (81-99); Mean Platelet Vol. 9.9 fl (6.2-12.0); Monocyte% 11.8 % (0-10); NRBC Flagged by Analyzer 0 % (0-5); Neutrophil # 5.17 X10^3/uL (2.7-7.7); Neutrophil % 60.9 % (47-70); Platelet Count 239 K/mm3 (150-450); RBC Distribution Width CV 14.5 % (11.6-14.6); RBC Distribution Width SD 49.8 fl (35.1-43.9); Red Blood Count 3.42 M/mm3 (4.2-5.4); White Blood Count 8.5 K/mm3 (4.4-11.0)
[2020-04-03] MEDS: Sucralfate 1 GM Tablet PO ×4 (06:41→21:42)
[2020-04-03 06:46] LABS: Bedside Glucose 155 mg/dL (70-110)
[2020-04-03 07:13] LABS: Anion Gap 6 (5-15); BUN 36 mg/dL (7-18); BUN/Creat Ratio 18.6 RATIO (10-20); Calcium,Total 8.7 mg/dL (8.5-10.1); Chloride 99 mmol/L (98-107); Creatinine, Serum 1.94 mg/dL (0.55-1.02); EST Glomerular Filtration Rate 27 mL/min (>60); Est Glom Filt Rate - Afr Amer 32 mL/min (>60); Estimated Creatinine Clearance 20.64 ml/min; Glucose 172 mg/dL (74-106); Potassium 3.8 mmol/L (3.5-5.1); Sodium Level 138 mmol/L (136-145)
[2020-04-03 08:55] LABS: Bedside Glucose 127 mg/dL (70-110)
--- NOTE | 2020-04-03 09:00 | CASEMGMT ---
This RN CM to room with CHARLES form at this time, explanation done-pt voices understanding, but pt is unable to sign d/t previous CVA and verbal consent given for signature at this time. Pt is A/Ox4 at this time and answers questions appropriately. Pt voices no further questions/concerns/needs at this time. SStaten MIGUEL ÁNGEL CM
[2020-04-03] MEDS: Insulin Lispro 100 UNIT/ML INSULN.PEN SC ×6 (09:43→21:42)
[2020-04-03] MEDS: Metoprolol(XL)Succ 50 MG Tablet PO (09:50)
[2020-04-03] MEDS: Furosemide 40 MG Tablet PO (09:50)
[2020-04-03] MEDS: Anastrozole 1 MG Tablet PO (09:50)
[2020-04-03] MEDS: Cyanocobalamin 500 MCG Tablet 1000 MCG PO (09:51)
[2020-04-03] MEDS: Losartan Potassium 25 MG Tablet PO (09:51)
[2020-04-03] MEDS: Polyethylene Glycol 3350 17 GM PACKET PO (09:51)
[2020-04-03] MEDS: Aspirin E.C. 81 MG Tablet PO (09:51)
[2020-04-03] MEDS: Pantoprazole Sodium 40 MG Tablet PO ×2 (09:51→21:42)
[2020-04-03] MEDS: Isosorbide Mononitrate 30 MG Tablet PO (09:51)
[2020-04-03] MEDS: predniSONE 5 MG Tablet 10 MG PO (09:52)
[2020-04-03] MEDS: Ferrous Sulfate 325 MG Tablet PO ×2 (12:10→16:16)
[2020-04-03 12:22] LABS: Bedside Glucose 195 mg/dL (70-110)
--- NOTE | 2020-04-03 16:31 | PN_ITS ---
Patient Problems: Active and Suspected Problems (Last Reviewed 05/22/19 @ 15:31 by Tessy Osorio) Failure to thrive (Acute) Confusion (Acute) Subjective: Patient seen and examined. She had no complaints today. Review of signs otherwise negative. Labs and vitals reviewed. Her blood sugars were very high yesterday up in the 500s so she was started on insulin drip as subcu lispro was not helping. Vitals/I&O's: Vital Signs Temp Pulse Resp BP Pulse Ox 98.5 F 76 18 117/46 L 95 04/03/20 16:00 04/03/20 16:00 04/03/20 16:00 04/03/20 16:00 04/03/20 16:00 Oxygen Flow Rate (L/min) 2 Oxygen Delivery Method Nasal Cannula Weight: 197 lb 8.547 oz Body Mass Index (BMI) 33.9 Finger Stick Blood Glucose 155 Intake and Output for Last 24 Hours 04/01/20 04/02/20 04/03/20 23:59 23:59 23:59 Intake Total 420 / 420 852.68 / 852.68 3087.15 / 3087.15 Output Total 2400 / 2400 425 / 425 490 / 490 Balance -1979 / 427.68 / 427.68 2597.15 / 2597.15 General: Alert, Oriented x3, Cooperative, No apparent distress, Lethargic HEENT: Atraumatic, PERRLA, EOMI, Normocephalic Oral: Dry Mucosa Neck: Supple, No JVD, Negative Carotid Bruits Lungs: Clear to auscultation, Normal air movement Cardiovascular: Regular rate, Regular Rhythm, Normal S1, Normal S2, No murmurs Abdomen: Bowel Sounds Present, Soft, Non Tender, Non-Distended, No Hepato- splenomegaly Extremities: No clubbing, No cyanosis, No edema, Capillary Refill Less than 3 Seconds Skin: No rashes, No breakdown Musculoskeletal: No Tenderness to Palpation of Joints or Extremities Lymphatic: No Cervical, Supraclavicular, or Inguinal Adenopathy Neurological: Cranial nerves II-XII grossly intact, - - power in LEs- 3/5, in UEs 4/5; no tremors or flaccidity Microbiology Past 72 Hours 04/01/20 09:23 Csf, Spinal Fluid Gram Stain - Final 04/01/20 09:23 Csf, Spinal Fluid CSF Culture - Preliminary No growth in 48 hours. Laboratory Results 04/02/20 14:16: POC Glucose > 500 H* 04/02/20 17:26: POC Glucose > 500 H* 04/02/20 17:43: Glucose 590 H* 04/02/20 20:40: POC Glucose > 500 H* 04/02/20 21:27: Glucose 592 H* 04/02/20 21:48: POC Glucose > 500 H* 04/02/20 22:17: Glucose 551 H* 04/02/20 22:47: POC Glucose 450 H 04/02/20 23:45: POC Glucose 405 H 04/03/20 00:46: POC Glucose 343 H 04/03/20 01:48: POC Glucose 305 H 04/03/20 02:45: POC Glucose 264 H 04/03/20 04:51: POC Glucose 197 H 04/03/20 05:30: WBC 8.5, RBC 3.42 L, Hgb 10.1 L, Hct 31.9 L, MCV 93.3, MCH 29.5, MCHC 31.7 L, RDW Std Deviation 49.8 H, RDW Coeff of Gunnar 14.5, Plt Count 239, MPV 9.9, Immature Gran % (Auto) 1.200 H, Neut % (Auto) 60.9, Lymph % (Auto) 24.3, Howard % (Auto) 11.8 H, Eos % (Auto) 0.9, Baso % (Auto) 0.9, Absolute Neuts (auto) 5.2, Absolute Lymphs (auto) 2.06, Nucleated RBC % 0 04/03/20 05:30: Sodium 138, Potassium 3.8, Chloride 99, Carbon Dioxide 33.0 H, Anion Gap 6, BUN 36 H, Creatinine 1.94 H, Estim Creat Clear Calc 20.64, Est GFR (MDRD) Af Amer 32 L, Est GFR (MDRD) Non-Af 27 L, BUN/Creatinine Ratio 18.6, Glucose 172 H, Calcium 8.7 04/03/20 05:43: POC Glucose 186 H 04/03/20 06:37: POC Glucose 155 H 04/03/20 08:39: POC Glucose 127 H 04/03/20 12:07: POC Glucose 195 H Current Medications Al Hydroxide/Mg Hydroxide (Mylanta Ii) 30 ml PO Q6H PRN PRN PRN Reason: Gastric Burning Albuterol Sulfate (Ventolin Aerosols) 2.5 mg INHALATION Q2H PRN PRN PRN Reason: Dyspnea, wheezing Anastrozole (Arimidex) 1 mg PO DAILY [facility] Last Admin: 04/03/20 09:50 Dose: 1 mg Documented by: Aspirin (Ecotrin) 81 mg PO DAILY@0800 [facility] Last Admin: 04/03/20 09:51 Dose: 81 mg Documented by: Atorvastatin Calcium (Lipitor) 80 mg PO QHS [facility] Last Admin: 04/02/20 21:06 Dose: 80 mg Documented by: Cyanocobalamin (Vitamin B12) 1,000 mcg PO DAILY@0800 [facility] Last Admin: 04/03/20 09:51 Dose: 1,000 mcg Documented by: Dextrose (D50w Syringe) 0 gm IV X1 PRN; Protocol PRN Reason: Hypoglycemia Protocol Ergocalciferol (Vitamin D) 50,000 unit PO Q7D@1000 [facility] Last Admin: 04/01/20 20:04 Dose: 50,000 unit Documented by: Ferrous Sulfate (Ferrous Sulfate) 325 mg PO 1200,1700 [facility] Last Admin: 04/03/20 16:16 Dose: 325 mg Documented by: Furosemide (Lasix) 40 mg PO DAILY [facility] Last Admin: 04/03/20 09:50 Dose: 40 mg Documented by: Guaifenesin (Robitussin) 20 ml PO Q4H PRN PRN PRN Reason: COUGH Hydralazine HCl (Apresoline Iv) 10 mg IV Q4H PRN PRN PRN Reason: SBP > 160 Sodium Chloride () 250 mls @ 15 mls/hr IV .[id number] PRN PRN Reason: Saline Flush Sodium Chloride () 250 mls @ 15 mls/hr IV .[id number] PRN PRN Reason: Additional IVPB Infusion Sodium Chloride () 1,000 mls @ 125 mls/hr IV .Q8H [facility] Last Admin: 04/03/20 16:28 Dose: 125 mls/hr Documented by: Insulin Glargine (Lantus (Bkc)) 35 units SC DAILY [facility] Last Admin: 04/03/20 10:03 Dose: Not Given Documented by: Insulin Human Lispro (Humalog Kwikpen (Bkc)) 0 unit SC ACHS [facility]; Protocol Last Admin: 04/03/20 16:25 Dose: 6 u Documented by: Insulin Human Lispro (Humalog Kwikpen (Bkc)) 5 unit SC TIDAC [facility] Last Admin: 04/03/20 16:25 Dose: 5 u Documented by: Isosorbide Mononitrate (Imdur) 30 mg PO DAILY [facility] Last Admin: 04/03/20 09:51 Dose: 30 mg Documented by: Losartan Potassium (Cozaar) 25 mg PO DAILY [facility] Last Admin: 04/03/20 09:51 Dose: 25 mg Documented by: Melatonin (Melatonin) 6 mg PO QHS [facility] Last Admin: 04/02/20 21:06 Dose: 6 mg Documented by: Metoprolol Succinate (Toprol Xl (Beta Corin)) 50 mg PO DAILY [facility] Last Admin: 04/03/20 09:50 Dose: 50 mg Documented by: Ondansetron HCl (Zofran) 4 mg IV Q8H PRN PRN PRN Reason: NAUSEA/VOMITING Last Admin: 04/01/20 02:44 Dose: 4 mg Documented by: Pantoprazole Sodium (Protonix) 40 mg PO BID [facility] Last Admin: 04/03/20 09:51 Dose: 40 mg Documented by: Polyethylene Glycol (Miralax) 17 gm PO BID [facility] Last Admin: 04/03/20 09:51 Dose: 17 gm Documented by: [facility] () [facility] Taper Stop: 04/13/20 07:59 Last Admin: 04/03/20 09:52 Dose: 10 mg Documented by: Prochlorperazine Edisylate (Compazine Iv) 5 mg IV Q4H PRN PRN PRN Reason: Breakthrough Nausea/Vomiting Psyllium Hydrophilic Mucilloid (Metamucil) 1 packet PO DAILY PRN PRN PRN Reason: Constipation Senna/Docusate Sodium (Senokot-S, Clarisa-Colace) 2 tablet PO BID PRN PRN PRN Reason: Constipation Sodium Biphosphate/Sodium Phosphate (Fleet Enema) 1 bottle RECTAL DAILY PRN PRN PRN Reason: Constipation Sodium Chloride () 10 - 40 ml IV UD PRN PRN Reason: SALINE FLUSH Last Admin: 08/13/20 17:34 Dose: 10 ml Documented by: Sucralfate (Carafate) 1 gm PO 1HR_ACHS [facility] Last Admin: 04/03/20 16:16 Dose: 1 gm Documented by: Tamsulosin HCl (Flomax) 0.4 mg PO DAILY@1730 [facility] Last Admin: 04/02/20 17:34 Dose: 0.4 mg Documented by: Throat Lozenges (Cepacol Sore Throat Lozenge) 1 lozenge MUCOUS MEM Q2H PRN PRN PRN Reason: SORE THROAT Tramadol HCl (Ultram) 50 mg PO Q6H PRN PRN PRN Reason: Pain (1-10) or Fever STROKE Vital Signs/Narrative: Vital Signs Temp Pulse Resp BP Pulse Ox 04/03/20 16:00 98.5 F 76 18 117/46 L 95 04/03/20 15:00 78 Medical Necessity - Tobacco Use Smoking Status: Never smoker Tobacco Use: Non-smoker Assessment/Plan All Active Problems (Last Reviewed 05/22/19 @ 15:31 by Tessy Osorio) Debility (Acute) Candidiasis (Acute) Upper gastrointestinal bleed (Acute) Guaiac positive stools (Acute) Gastric cardia ulcer (Acute) Acute kidney injury (Acute) Failure to thrive (Acute) Confusion (Acute) Osteopenia (Acute) Breast cancer, right (Resolved) Facial droop (Acute) Generalized weakness (Acute) Multiple contusions (Acute) Acute kidney failure (Acute) Troponin I above reference range (Acute) UTI (urinary tract infection) (Acute) # Debility due to generalised weakness * patient still remains weak * Imaging done showed lumbar spine stenosis. * Labs requested by neurology including EMG and electrophoresis as well as immunofluorescence pending. EMG electrophoresis not done as they cannot be done here. LP done and cultures are negative and review of CSF analysis was also unremarkable. * PT OT on board. I did discuss with son today about patient needing inpatient neurology consult and this could be done on outpatient basis. Son is agreeable to patient being discharged back to her rehab unit tomorrow and to follow-up with neurology on outpatient basis. * Continue vitamin B12 supplements. * * 2. Chronic anemia: stable. hb is stable 3. history of CVA: on basby aspirin. due to history of GI bleed, not on any other anticoagulation. on statins.. 4. Histroy of DVT: xarelto on hold due to history of GI bleed 5. Hypertension on losartan, metoprolol and Imdur as well as Lasix. 6. Type 2 diabetes mellitus: * Had hypoglycemia yesterday with sugar going up above 500. * She was therefore started on insulin drip yesterday and this was titrated off today. * She is back on her Lantus 35 units daily and insulin sliding scale. Accu- Cheks AC at bedtime. 7. Hyperlipidemia: On statin. 8. History of breast cancer: On Arimidex. DVT prophylaxis: SCDs due to recent history of GI bleed. Disposition: For likely DC tomorrow. Inpatient E&M: [id number] Subs Hosp L2
[2020-04-03 17:20] LABS: Bedside Glucose 212 mg/dL (70-110)
[2020-04-03] MEDS: Tamsulosin HCl 0.4 MG Capsule PO (18:05)
[2020-04-03] MEDS: Atorvastatin Calcium 80 MG Tablet PO (21:42)
[2020-04-03] MEDS: MELATONIN 3 MG TABLET 6 MG PO (21:42)
[2020-04-03 22:10] LABS: Bedside Glucose 287 mg/dL (70-110)
[2020-04-04] VITALS (7 sets, daily range): BP systolic 121–159; BP diastolic 50–66; PULSE 60–70; RESP 16–18; TEMP 36.6–36.7; O2SAT 96–97
[2020-04-04] MEDS: 0.9% Normal Saline 1,000 ML 125 ML IV (06:00)
[2020-04-04] MEDS: Sucralfate 1 GM Tablet PO ×2 (06:02→10:59)
[2020-04-04] MEDS: traMADol 50 MG Tablet PO (08:03)
[2020-04-04] MEDS: Insulin Lispro 100 UNIT/ML INSULN.PEN SC ×4 (08:06→11:01)
[2020-04-04] MEDS: Aspirin E.C. 81 MG Tablet PO (08:10)
[2020-04-04] MEDS: Losartan Potassium 25 MG Tablet PO (08:10)
[2020-04-04 08:11] LABS: Bedside Glucose 185 mg/dL (70-110)
[2020-04-04] MEDS: Furosemide 40 MG Tablet PO (08:11)
[2020-04-04] MEDS: Isosorbide Mononitrate 30 MG Tablet PO (08:11)
[2020-04-04] MEDS: Cyanocobalamin 500 MCG Tablet 1000 MCG PO (08:11)
[2020-04-04] MEDS: Metoprolol(XL)Succ 50 MG Tablet PO (08:11)
[2020-04-04] MEDS: Pantoprazole Sodium 40 MG Tablet PO (08:11)
[2020-04-04] MEDS: Polyethylene Glycol 3350 17 GM PACKET PO (08:12)
[2020-04-04] MEDS: Anastrozole 1 MG Tablet PO (08:12)
[2020-04-04] MEDS: predniSONE 5 MG Tablet 10 MG PO (08:12)
[2020-04-04 08:33] LABS: Absolute Lymphocyte Count 1.94 X10^3/uL (0.83-4.51); Absolute Neutrophil Count 4.6 X10^3/uL (2.0-7.7); Basophil% 1.3 % (0-1); Eosinophil# 0.12 X10^3/uL; Eosinophils% 1.6 % (0-5); Hematocrit 32.9 % (37-47); Hemoglobin 10.2 g/dL (12.0-15.0); Lymphocyte # 1.94 X10^3/ul (4.0); Lymphocyte % 25.5 % (19-41); Mean Corpuscular Hgb 29.5 pg (27.0-32.0); Mean Corpuscular Volume 95.1 fL (81-99); Mean Platelet Vol. 9.8 fl (6.2-12.0); Monocyte# 0.81 X10^3/uL; Monocyte% 10.6 % (0-10); NRBC Flagged by Analyzer 0 % (0-5); Neutrophil # 4.58 X10^3/uL (2.7-7.7); Neutrophil % 60.2 % (47-70); Platelet Count 254 K/mm3 (150-450); RBC Distribution Width CV 14.4 % (11.6-14.6); RBC Distribution Width SD 49.6 fl (35.1-43.9); Red Blood Count 3.46 M/mm3 (4.2-5.4); White Blood Count 7.6 K/mm3 (4.4-11.0)
[2020-04-04 08:49] LABS: Anion Gap 6 (5-15); BUN 28 mg/dL (7-18); Calcium,Total 8.4 mg/dL (8.5-10.1); Chloride 105 mmol/L (98-107); Creatinine, Serum 1.27 mg/dL (0.55-1.02); EST Glomerular Filtration Rate 43 mL/min (>60); Est Glom Filt Rate - Afr Amer 52 mL/min (>60); Estimated Creatinine Clearance 31.53 ml/min; Glucose 185 mg/dL (74-106); Sodium Level 141 mmol/L (136-145)
--- NOTE | 2020-04-04 10:01 | PCM.TXEXTCAR ---
- Diet 04/03/20 06:18 ADA [Diet: Calorie Controlled] Is pt able to select menu?: Yes Diet Comments: Vegetarian How many daily calories?: 1800 calorie - Routine Orders/Code Status Enema Type: Fleetz Enema Frequency: Daily PRN Suppository Type: Dulcolax 10mg Suppository Frequency: Daily PRN Code Status: DNC-A - Wound(s) left heel Wound Type: Pressure Injury lower back Wound Type: Puncture - Therapies Weight Bearing: Weight bearing as tolerated Physical Therapy: Eval and Treat Occupational Therapy: Eval and Treat - Allergies/Procedures Done in Hospital Allergies/Adverse Reactions: Allergies amoxicillin [From Augmentin] Allergy (Verified 03/08/20 12:37) PT UNSURE OF REACTION clavulanic acid [From Augmentin] Allergy (Verified 03/08/20 12:37) PT UNSURE OF REACTION Iodinated Contrast Media [DYEE] Allergy (Verified 05/22/19 15:32) Anaphylaxis levofloxacin [From Levaquin] Allergy (Verified 03/15/20 15:48) Upset Stomach loratadine [From Claritin] Allergy (Verified 03/08/20 12:37) PT UNSURE OF REACTION hydrocodone bitartrate [From Vicodin] Adverse Reaction (Verified 05/22/19 15:32) Nausea/Vom/Diarrhea iodine Adverse Reaction (Verified 03/08/20 12:37) Nausea/Vom/Diarrhea Procedures: None - Type of Care/Length of Stay Estimated LOS: More Than 30 Days Type of Care Needed: Skilled Rehab Potential: Fair Prognosis: Fair - Additional Orders/Day of Discharge Day of Discharge: 04/04/20 - Dietary and Speech Recommendations Dietitian Recommendations/Changes: Will adjust diet to Vegetarian Cardiac:CHO controlled diet. - Follow Up Care Primary Care Physician: Ab Escobar MD [Primary Care Provider] - Please follow up with your Primary Care Physician in: 1-2 WEEKS Please Follow Up With: Arie Hendricks MD When: 1-2 WEEKS TO SEE NEUROLOGIST
--- NOTE | 2020-04-04 10:03 | DS.PCM_ITS ---
Discharge Date and Diagnosis Date of Admission: 04/01/20 Date of Discharge: 04/04/20 - Primary Discharge Diagnosis Acute Problems: Active Problems (Last Reviewed 05/22/19 @ 15:31 by Tessy Osorio) Failure to thrive (Acute) Confusion (Acute) - Secondary Discharge Diagnosis Chronic Problems: Chronic Problems (Last Reviewed 05/22/19 @ 15:31 by Tessy Osorio) Coronary artery disease (Chronic) Stroke (Chronic) Breast cancer (Chronic) HTN (hypertension) (Chronic) HLD (hyperlipidemia) (Chronic) Obesity (BMI 30-39.9) (Chronic) History of right breast cancer (Chronic) History of stroke (Chronic) Diabetes (Chronic) History of pacemaker (Chronic) History of cardiac defibrillator placement (Chronic) Anemia (Chronic) GI bleed (Chronic) Hospital Course and Treatment Imaging Results: Diagnostic Data Chest X-Ray 03/31/20 22:45 IMPRESSION: No change. Density of the mid and lower left lung probably represents chronic pleural-parenchymal scarring. Electronically Signed: Homero Palm MD at 23:48 EDT , Service support , Lumbar Puncture Fluoroscopy 04/01/20 05:55 IMPRESSION: Successful fluoroscopic-guided lumbar puncture. Electronically Signed: Wiliam Hernandez, at 10:36 EDT , Service support , Cervical Spine CT 04/01/20 08:00 IMPRESSION: Multilevel degenerative changes, as described above. Multilevel bilateral neural foraminal stenosis as described. Electronically Signed: Wiliam Hernandez, at 10:04 EDT , Service support , Lumbar Spine CT 04/01/20 16:58 IMPRESSION: No acute abnormalities. Moderate multilevel degenerative disc disease. Multilevel spinal stenosis and neural foraminal narrowing as specified above. Electronically Signed: Homero Palm MD at 18:21 EDT , Service support , Thoracic Spine CT 04/01/20 16:58 IMPRESSION: Prominent degenerative changes and ankylosis. No acute abnormalities. Electronically Signed: Homero Palm MD at 17:41 EDT , Service support , Operations: None Procedures: None Summary of Care Provided: The patient is a 80 year old F with an extensive past medical history as outlined was admitted from the transitional care unit via the ED on 04/01/2020 with a complaint of progressive generalized weakness with intermittent confusion. Patient had long standing weakness but had not been able to work physical therapy so that is why she was brought in to the hospital. She had been recently admitted in February 2020 for urinary tract infection and from the discharge to the TCU. Whilst there, she had a GI bleed and so anticoagulation was discontinued. She was admitted and managed for debility and generalized weakness with unclear etiology. Neurology was consulted. PT OT was also consul clarence. Neurology reviewed patient's requested for EMG and serum electrophoresis as well as immunofluorescence. CT of the thoracic and lumbar spines ordered showed spinal stenosis in the lumbar region. Lumbar puncture was done which also was unremarkable and cultures were negative. EMG could not be done in our hospital and there was no neurology in house to evaluate patient as recommended by tele-neurology. Patient was offered the option of transferring her to a tertiary center for inpatient neurology review. Patient however declined transfer and per discussion with her family, they prefer that patient for follow-up with neurology on outpatient basis. Patient remained at her baseline throughout admission and was able to work with physical therapy slightly. She remained stable. Protein electrophoresis and immunofluorescence results were still pending at time of discharge. Serology for West Nile virus and Enterovirus and HSV were also pending at time of discharge. She was referred to neurology on outpatient basis. She is to follow-up with her primary care doctor in 1 to 2 weeks and is also to have physical therapy and her rehab facility. Patient seen and examined prior to discharge. She had no complaints and felt well. Review of systems otherwise negative. Labs and vitals reviewed. Home medication reviewed and reconciled. O/E: Vital Signs Temp Pulse Resp BP Pulse Ox 97.8 F 60 18 121/50 H 96 04/04/20 13:55 04/04/20 13:55 04/04/20 13:55 04/04/20 13:55 04/04/20 13:55 General: Alert, Oriented x3, Cooperative, No apparent distress HEENT: Atraumatic, PERRLA, EOMI, Normocephalic Oral: Dry Mucosa Neck: Supple, No JVD, Negative Carotid Bruits Lungs: Clear to auscultation, Normal air movement Cardiovascular: Regular rate, Regular Rhythm, Normal S1, Normal S2, No murmurs Abdomen: Bowel Sounds Present, Soft, Non Tender, Non-Distended, No Hepato- splenomegaly Extremities: No clubbing, No cyanosis, No edema, Capillary Refill Less than 3 Seconds Skin: No rashes, No breakdown Musculoskeletal: No Tenderness to Palpation of Joints or Extremities Lymphatic: No Cervical, Supraclavicular, or Inguinal Adenopathy Neurological: Cranial nerves II-XII grossly intact, - - power in LEs- 3/5, in UEs 4/5; no tremors or flaccidity Plan is for discharge to TCU. She is to follow up with her PCP in 1-2 weeks. - Physical Exam Vitals/I&O's: Vital Signs Temp Pulse Resp BP Pulse Ox 98.0 F 70 17 159/66 H 97 04/04/20 08:10 04/04/20 08:11 04/04/20 08:10 04/04/20 08:11 04/04/20 08:10 Oxygen Flow Rate (L/min) 1.5 Oxygen Delivery Method Nasal Cannula Weight: 197 lb 8.547 oz Body Mass Index (BMI) 33.9 Finger Stick Blood Glucose 155 Intake and Output for Last 24 Hours 04/02/20 04/03/20 04/04/20 23:59 23:59 23:59 Intake Total 852.68 / 852.68 4170.90 / 4170.90 847.92 / 847.92 Output Total 425 / 425 1040 / 1040 350 / 350 Balance 427.68 / 427.68 3130.90 / 3130.90 497.92 / 497.92 Microbiology Past 72 Hours 04/01/20 09:23 Csf, Spinal Fluid Gram Stain - Final 04/01/20 09:23 Csf, Spinal Fluid CSF Culture - Preliminary No growth in 48 hours. Laboratory Results 04/03/20 12:07: POC Glucose 195 H 04/03/20 16:23: POC Glucose 212 H 04/03/20 21:40: POC Glucose 287 H 04/04/20 08:02: POC Glucose 185 H 04/04/20 08:20: WBC 7.6, RBC 3.46 L, Hgb 10.2 L, Hct 32.9 L, MCV 95.1, MCH 29.5, MCHC 31.0 L, RDW Std Deviation 49.6 H, RDW Coeff of Gunnar 14.4, Plt Count 254, MPV 9.8, Immature Gran % (Auto) 0.800, Neut % (Auto) 60.2, Lymph % (Auto) 25.5, Hitchcock % (Auto) 10.6 H, Eos % (Auto) 1.6, Baso % (Auto) 1.3 H, Absolute Neuts (auto) 4.6, Absolute Lymphs (auto) 1.94, Nucleated RBC % 0 04/04/20 08:20: Sodium 141, Potassium 4.0, Chloride 105, Carbon Dioxide 30.0, Anion Gap 6, BUN 28 H, Creatinine 1.27 H, Estim Creat Clear Calc 31.53, Est GFR (MDRD) Af Amer 52 L, Est GFR (MDRD) Non-Af 43 L, BUN/Creatinine Ratio 22.0 H, Glucose 185 H, Calcium 8.4 L Current Medications Al Hydroxide/Mg Hydroxide (Mylanta Ii) 30 ml PO Q6H PRN PRN PRN Reason: Gastric Burning Albuterol Sulfate (Ventolin Aerosols) 2.5 mg INHALATION Q2H PRN PRN PRN Reason: Dyspnea, wheezing Anastrozole (Arimidex) 1 mg PO DAILY [facility] Last Admin: 04/04/20 08:12 Dose: 1 mg Documented by: Aspirin (Ecotrin) 81 mg PO DAILY@0800 [facility] Last Admin: 04/04/20 08:10 Dose: 81 mg Documented by: Atorvastatin Calcium (Lipitor) 80 mg PO QHS [facility] Last Admin: 04/03/20 21:42 Dose: 80 mg Documented by: Cyanocobalamin (Vitamin B12) 1,000 mcg PO DAILY@0800 [facility] Last Admin: 04/04/20 08:11 Dose: 1,000 mcg Documented by: Dextrose (D50w Syringe) 0 gm IV X1 PRN; Protocol PRN Reason: Hypoglycemia Protocol Ergocalciferol (Vitamin D) 50,000 unit PO Q7D@1000 [facility] Last Admin: 04/01/20 20:04 Dose: 50,000 unit Documented by: Ferrous Sulfate (Ferrous Sulfate) 325 mg PO 1200,1700 [facility] Last Admin: 04/03/20 16:16 Dose: 325 mg Documented by: Furosemide (Lasix) 40 mg PO DAILY [facility] Last Admin: 04/04/20 08:11 Dose: 40 mg Documented by: Guaifenesin (Robitussin) 20 ml PO Q4H PRN PRN PRN Reason: COUGH Hydralazine HCl (Apresoline Iv) 10 mg IV Q4H PRN PRN PRN Reason: SBP > 160 Sodium Chloride () 250 mls @ 15 mls/hr IV .[id number] PRN PRN Reason: Saline Flush Sodium Chloride () 250 mls @ 15 mls/hr IV .[id number] PRN PRN Reason: Additional IVPB Infusion Sodium Chloride () 1,000 mls @ 125 mls/hr IV .Q8H [facility] Last Admin: 04/04/20 06:00 Dose: 125 mls/hr Documented by: Insulin Glargine (Lantus (Bkc)) 35 units SC DAILY [facility] Last Admin: 04/04/20 08:07 Dose: 35 units Documented by: Insulin Human Lispro (Humalog Kwikpen (Bkc)) 0 unit SC ACHS [facility]; Protocol Last Admin: 04/04/20 08:06 Dose: 3 u Documented by: Insulin Human Lispro (Humalog Kwikpen (Bk)) 5 unit SC TIDAC [facility] Last Admin: 04/04/20 08:06 Dose: 5 u Documented by: Isosorbide Mononitrate (Imdur) 30 mg PO DAILY [facility] Last Admin: 04/04/20 08:11 Dose: 30 mg Documented by: Losartan Potassium (Cozaar) 25 mg PO DAILY [facility] Last Admin: 04/04/20 08:10 Dose: 25 mg Documented by: Melatonin (Melatonin) 6 mg PO QHS [facility] Last Admin: 04/03/20 21:42 Dose: 6 mg Documented by: Metoprolol Succinate (Toprol Xl (Beta Corin)) 50 mg PO DAILY [facility] Last Admin: 04/04/20 08:11 Dose: 50 mg Documented by: Ondansetron HCl (Zofran) 4 mg IV Q8H PRN PRN PRN Reason: NAUSEA/VOMITING Last Admin: 04/01/20 02:44 Dose: 4 mg Documented by: Pantoprazole Sodium (Protonix) 40 mg PO BID [facility] Last Admin: 04/04/20 08:11 Dose: 40 mg Documented by: Polyethylene Glycol (Miralax) 17 gm PO BID [facility] Last Admin: 04/04/20 08:12 Dose: 17 gm Documented by: [facility] () [facility]; Taper Stop: 04/13/20 07:59 Last Admin: 04/04/20 08:12 Dose: 10 mg Documented by: Prochlorperazine Edisylate (Compazine Iv) 5 mg IV Q4H PRN PRN PRN Reason: Breakthrough Nausea/Vomiting Psyllium Hydrophilic Mucilloid (Metamucil) 1 packet PO DAILY PRN PRN PRN Reason: Constipation Senna/Docusate Sodium (Senokot-S, Clarisa-Colace) 2 tablet PO BID PRN PRN PRN Reason: Constipation Sodium Biphosphate/Sodium Phosphate (Fleet Enema) 1 bottle RECTAL DAILY PRN PRN PRN Reason: Constipation Sodium Chloride () 10 - 40 ml IV UD PRN PRN Reason: SALINE FLUSH Last Admin: 04/02/20 17:34 Dose: 10 ml Documented by: Sucralfate (Carafate) 1 gm PO 1HR_ACHS [facility] Last Admin: 04/04/20 06:02 Dose: 1 gm Documented by: Tamsulosin HCl (Flomax) 0.4 mg PO DAILY@1730 [facility] Last Admin: 04/03/20 18:05 Dose: 0.4 mg Documented by: Throat Lozenges (Cepacol Sore Throat Lozenge) 1 lozenge MUCOUS MEM Q2H PRN PRN PRN Reason: SORE THROAT Tramadol HCl (Ultram) 50 mg PO Q6H PRN PRN PRN Reason: Pain (1-10) or Fever Last Admin: 04/04/20 08:03 Dose: 50 mg Documented by: Discharge Diet: Low fat/ Low Cholesterol Discharge Activity: Return to Normal Activity Weight Bearing Status: Weight bearing as tolerated Home Medications: Medications to take at Discharge Acetaminophen [Tylenol] 650 mg PO Q4H PRN PRN 03/02/20 Anastrozole [Arimidex] 1 mg PO DAILY 03/02/20 Aspirin E.C. [Ecotrin] 81 mg PO DAILY@0800 03/02/20 Atorvastatin Calcium [Lipitor] 80 mg PO QHS 03/02/20 Calcium Carbonate 500 mg PO DAILY 03/02/20 Cholecalciferol (VIT D3) [Vitamin D3] 1,000 unit PO DAILY 03/02/20 Insulin Detemir [Levemir Flextouch] 35 unit SQ DAILY 03/02/20 Insulin Lispro [Humalog KwikPen] 5 unit SQ TID 03/02/20 Insulin Lispro [Humalog KwikPen] See Protocol SQ ACHS 03/02/20 Isosorbide Mononitrate [Isosorbide Mononitrate ER] 30 mg PO DAILY 03/02/20 Losartan Potassium [Cozaar] 25 mg PO DAILY 03/02/20 Magnesium Hydroxide [Milk of Magnesia] 30 ml PO DAILY PRN PRN 03/02/20 Melatonin 6 mg PO QHS 03/02/20 Metoprolol Succinate [Toprol Xl] 25 mg PO DAILY 03/02/20 Ondansetron HCl [Zofran] 4 mg PO Q6H PRN PRN 03/02/20 Polyethylene Glycol 3350 17 gm PO BID 03/02/20 Prednisone 20 mg PO DAILY 03/02/20 Promethazine HCl 25 mg PO DAILY PRN PRN 03/02/20 Sodium Phosphate,Hitchcock-Dibasic [Fleet Enema] 1 bottle [place] DAILY PRN PRN 03/02/20 Tramadol HCl [Ultram] 50 mg PO Q6H PRN PRN 03/02/20 Ferrous Sulfate 325 mg PO 1200,1700 03/06/20 Fluconazole [Diflucan] 200 mg PO DAILY 03/06/20 Furosemide [Lasix] 40 mg PO DAILY #0 03/06/20 Pantoprazole Sodium [Protonix] 40 mg PO BID 03/06/20 Sucralfate [Carafate] 1 gm PO 1HR_ACHS 03/06/20 Tamsulosin HCl [Flomax] 0.4 mg PO DAILY@1730 03/06/20 Cyanocobalamin (Vitamin B-12) [Cyanocobalamin Injection] 1,000 mcg IJ [id number] 04/01/20 Iron Polysaccharide Complex [Ferrex 150] 150 mg PO DAILY 04/01/20 Lactulose [Chronulac] 20 gm PO DAILY 04/01/20 Nystatin 15 gm TP BID 04/01/20 Potassium Chloride 20 meq PO DAILY 04/01/20 Sennosides/Docusate Sodium [Senna-Docusate Sodium Tablet] 1 ea PO DAILY 04/01/20 Primary Care Physician: Ab Escobar MD [Primary Care Provider] - Please follow up with your Primary Care Physician in: 1-2 WEEKS Please Follow Up With: Arie Hendricks MD When: 1-2 WEEKS TO SEE NEUROLOGIST Disposition: Senior Living facility Minutes spent on discharge:: 45 Patient Condition:: Stable Medical Necessity - Tobacco Use Smoking Status: Never smoker Tobacco Use: Non-smoker Meaningful Use Info Meaningful Use Diagnoses (Choose all that apply): None applicable Inpatient E&M: [address] [facility]
[2020-04-04] MEDS: Ferrous Sulfate 325 MG Tablet PO (10:59)
[2020-04-04 11:11] LABS: Bedside Glucose 223 mg/dL (70-110)
--- NOTE | 2020-04-04 13:40 | CASEMGMT ---
Pt does have POA for healthcare on file under summary tab, however the LW provision is not completed and LW not on file. BRYAN Fontaine
--- NOTE | 2020-04-04 16:15 | NURSING ---
visited with patient now patient dc to tcu nurse Melodie was given report
== END 2020-04-04 10:02 | disposition skilled nursing facility (03) ==
LOC: ED 04-01 00:42 → PCU 04-01 04:18
PROVIDERS: Internal Medicine; Admitting Provider Family Medicine; Emergency Provider Emergency Medicine; PCP Family Medicine; Visit Provider Student in an Organized Health Care Education/Training Program
DX: R62.7 Adult failure to thrive (principal); R41.0 Disorientation, unspecified; Z68.33 Body mass index [BMI] 33.0-33.9, adult; I25.10 Atherosclerotic heart disease of native coronary artery without angina pectoris; E66.9 Obesity, unspecified; E78.5 Hyperlipidemia, unspecified; E11.65 Type 2 diabetes mellitus with hyperglycemia; I12.9 Hypertensive chronic kidney disease with stage 1 through stage 4 chronic kidney disease, or unspecified chronic kidney disease; E11.22 Type 2 diabetes mellitus with diabetic chronic kidney disease; D50.9 Iron deficiency anemia, unspecified; N18.3 Chronic kidney disease, stage 3 (moderate); Z86.718 Personal history of other venous thrombosis and embolism; Z95.810 Presence of automatic (implantable) cardiac defibrillator; Z79.899 Other long term (current) drug therapy; Z79.4 Long term (current) use of insulin; Z79.52 Long term (current) use of systemic steroids; Z79.82 Long term (current) use of aspirin; Z87.440 Personal history of urinary (tract) infections; Z86.73 Personal history of transient ischemic attack (TIA), and cerebral infarction without residual deficits; Z85.3 Personal history of malignant neoplasm of breast
CPT/HCPCS: 36415; 62270; 71045; 72125; 72128; 72131; 77003; 80048; 80053; 81001; 82040; 82042; 82784; 82945; 82947; 82962; 83735; 83873; 83916; 84157; 84165; 84484; 85025; 86140; 86334; 87070; 87205; 87498; 87529; 87798; 88108; 88313; 89050; 89051; 93005; 96361; 96365; 96366; 96375; 97110; 97163; 97166; 99218; 99251; 99283; J7030; A4216; G0378; G0463; J2405

== ENCOUNTER 2020-04-04 16:20 | Inpatient (IN) | payer MEDICARE, SELFPAY ==
[2020-04-04 16:50] VITALS: BP 156/22; PULSE 60; RESP 18; TEMP 36.6; O2SAT 92; O2SAT 96; BMI 36.5
[2020-04-04 17:16] LABS: Bedside Glucose 275 mg/dL (70-110)
[2020-04-04] MEDS: Ondansetron ODT 4 MG Tablet PO (18:13)
[2020-04-04] MEDS: Pantoprazole Sodium 40 MG Tablet PO (18:44)
[2020-04-04] MEDS: Nystatin Powder 15gm Bottle 1 APPLIC TOPICAL (18:49)
[2020-04-04] MEDS: Insulin Lispro 100 UNIT/ML INSULN.PEN SC ×2 (21:03)
[2020-04-04 21:05] LABS: Bedside Glucose 240 mg/dL (70-110)
[2020-04-04] MEDS: MELATONIN 3 MG TABLET 6 MG PO (21:06)
[2020-04-04] MEDS: Sucralfate 1 GM Tablet PO (21:06)
[2020-04-04] MEDS: Atorvastatin Calcium 80 MG Tablet PO (21:06)
--- NOTE | 2020-04-04 21:56 | PCM.HP.STD ---
Problem List (1) Encephalopathy Status: Acute (2) Vitamin B12 deficiency Status: Acute (3) Body mass index (bmi) 36.0-36.9, adult Status: Chronic (4) Nausea Status: Chronic (5) Urinary retention Status: Chronic (6) Insomnia Status: Chronic (7) Iron deficiency anemia Status: Chronic (8) GERD (gastroesophageal reflux disease) Status: Chronic (9) Debility Status: Acute (10) Coronary artery disease Status: Chronic Qualifiers: (11) Stroke Status: Chronic (12) Breast cancer Status: Chronic (13) HTN (hypertension) Status: Chronic Qualifiers: (14) HLD (hyperlipidemia) Status: Chronic Qualifiers: (15) Generalized weakness Status: Acute (16) Diabetes Status: Chronic Qualifiers: (17) Anemia Status: Chronic Qualifiers: History of Present Illness Date of Admission: 04/04/20 Chief Complaint: Here for rehabilitation, strengthening, prior to disposition determination. 03/31/2020 The patient is a 80 year old Female with below past medical history presented to [facility] Emergency Department with change in mental status. 03/31/2020 EKG sinus rhythm, short FL interval, inferior infarct, age undetermined. 03/31/2020 Chest X-ray mild lower left lung chronic pleural parenchymal scarring. TCU resident, not progressing in therapy, confused. Yelling in room at son to get out of bed. Her son was not in the room. CT head showed chronic involutional changes, MRI brain unable due to pacemaker/defibrillator. 04/01/2020 Admit to Hospital. B12 replacement therapy. PT/OT. Order Lumbar Puncture. 04/01/2020 Lumbar Puncture with 13ML clear cerebrospinal fluid. 04/01/2020 CT cervical spine multilevel degenerative changes. Multilevel bilateral neural foraminal stenosis. 04/01/2020 CSF negative malignant cells. Negative inflammation. 04/01/2020 Generalized weakness secondary to deconditioning. NCS/EMG cannot be done until mid April. 04/01/2020 CT lumbar spine moderate multilevel degenerative disc disease. Multilevel spinal stenosis, neural foraminal narrowing. 04/01/2020 CT thoracic spine prominent degenerative change, and ankylosis. NEGATIVE acute abnormalities. 04/01/2020 Teleneurology recommended NCS/EMG. Paraneoplastic profile, SPEP, TSH. Bedside neurologic consultation if available. If evaluation negative, consider empiric IVIG course. 04/02/2020 Patient still weak. Patient declined transfer to tertiary center for bedside neurologic evaluation. 04/03/2020 SPEP, West Nile Virus, Enterovirus, HSV pending. Recommend outpatient Neurology follow up. 04/04/2020 Admit to TCU with debility, here for rehabilitation, strengthening, prior to disposition determination. Past Medical History Past Medical History (Chronic Problems): Chronic Problems (Last Reviewed 05/22/19 @ 15:31 by Tessy Osorio) Coronary artery disease (Chronic) Stroke (Chronic) Breast cancer (Chronic) HTN (hypertension) (Chronic) HLD (hyperlipidemia) (Chronic) Obesity (BMI 30-39.9) (Chronic) Body mass index (bmi) 36.0-36.9, adult (Chronic) Nausea (Chronic) Urinary retention (Chronic) Insomnia (Chronic) Iron deficiency anemia (Chronic) GERD (gastroesophageal reflux disease) (Chronic) History of right breast cancer (Chronic) History of stroke (Chronic) Diabetes (Chronic) History of pacemaker (Chronic) History of cardiac defibrillator placement (Chronic) Anemia (Chronic) GI bleed (Chronic) Medical History: Medical History (Last Reviewed 05/22/19 @ 15:31 by Tessy Osorio) Cardiac defibrillator in place Z95.810 Diabetes mellitus E11.9 Heart disease I51.9 Left arm surgery Pacemaker Z95.0 2018 Stroke I63.9 2018 heart cath 2018 Allergies amoxicillin [From Augmentin] Allergy (Verified 04/04/20 18:05) PT UNSURE OF REACTION clavulanic acid [From Augmentin] Allergy (Verified 04/04/20 18:05) PT UNSURE OF REACTION Iodinated Contrast Media [DYEE] Allergy (Verified 04/04/20 18:05) Anaphylaxis levofloxacin [From Levaquin] Allergy (Verified 04/04/20 18:05) Upset Stomach loratadine [From Claritin] Allergy (Verified 04/04/20 18:05) PT UNSURE OF REACTION hydrocodone bitartrate [From Vicodin] Adverse Reaction (Verified 04/04/20 18:05) Nausea/Vom/Diarrhea iodine Adverse Reaction (Verified 04/04/20 18:05) Nausea/Vom/Diarrhea Home Medications: Ambulatory Orders Medication Instructions Recorded Acetaminophen [Tylenol] 650 mg PO Q4H PRN PRN 03/02/20 Anastrozole [Arimidex] 1 mg PO DAILY 03/02/20 Aspirin E.C. [Ecotrin] 81 mg PO DAILY@0800 03/02/20 Atorvastatin Calcium [Lipitor] 80 mg PO QHS 03/02/20 Calcium Carbonate 500 mg PO DAILY 03/02/20 Cholecalciferol (VIT D3) [Vitamin 1,000 unit PO DAILY 03/02/20 D3] Insulin Detemir [Levemir Flextouch] 35 unit SQ DAILY 03/02/20 Insulin Lispro [Humalog KwikPen] 5 unit SQ TID 03/02/20 Insulin Lispro [Humalog KwikPen] See Protocol SQ ACHS 03/02/20 Isosorbide Mononitrate [Isosorbide 30 mg PO DAILY 03/02/20 Mononitrate ER] Losartan Potassium [Cozaar] 25 mg PO DAILY 03/02/20 Magnesium Hydroxide [Milk of 30 ml PO DAILY PRN PRN 03/02/20 Magnesia] Melatonin 6 mg PO QHS 03/02/20 Metoprolol Succinate [Toprol Xl] 25 mg PO DAILY 03/02/20 Ondansetron HCl [Zofran] 4 mg PO Q6H PRN PRN 03/02/20 Polyethylene Glycol 3350 17 gm PO BID 03/02/20 Prednisone 20 mg PO DAILY 03/02/20 Promethazine HCl 25 mg PO DAILY PRN PRN 03/02/20 Sodium Phosphate,[place]-Dibasic 1 bottle FL DAILY PRN PRN 03/02/20 [Fleet Enema] Tramadol HCl [Ultram] 50 mg PO Q6H PRN PRN 03/02/20 Ferrous Sulfate 325 mg PO 1200,1700 03/06/20 Fluconazole [Diflucan] 200 mg PO DAILY 03/06/20 Furosemide [Lasix] 40 mg PO DAILY #0 03/06/20 Pantoprazole Sodium [Protonix] 40 mg PO BID 03/06/20 Sucralfate [Carafate] 1 gm PO 1HR_ACHS 03/06/20 Tamsulosin HCl [Flomax] 0.4 mg PO DAILY@1730 03/06/20 Cyanocobalamin (Vitamin B-12) 1,000 mcg IJ MOWEFR 04/01/20 [Cyanocobalamin Injection] Iron Polysaccharide Complex 150 mg PO DAILY 04/01/20 [Ferrex 150] Lactulose [Chronulac] 20 gm PO DAILY 04/01/20 Nystatin 15 gm TP BID 04/01/20 Potassium Chloride 20 meq PO DAILY 04/01/20 Sennosides/Docusate Sodium 1 ea PO DAILY 04/01/20 [Senna-Docusate Sodium Tablet] Surgical History: Surgical History (Last Reviewed 05/22/19 @ 15:31 by Tessy Osorio) History of appendectomy Z98.890, Z90.49 History of cataract extraction Z98.49 History of cholecystectomy Z98.890, Z90.49 History of hernia repair Z98.890, Z87.19 History of open heart surgery Z98.890 History of tonsillectomy Z98.890, Z90.89 Surgical History: appendectomy, cataract, cholecystectomy, coronary bypass surgery, herniorrhaphy, pacemaker implantation, tonsillectomy, - - Left arm surgery. 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 Denies: Chills, Fever, Weight Change HEENT: Denies: Head Aches, Sinus Congestion, Sinus Drainage Cardiovascular: Denies: Chest Pain, Palpitations Respiratory: Denies: Cough, Shortness of breath at rest, Sputum production Gastrointestinal: Denies: Abdominal Pain, Nausea, Vomiting Genitourinary: Denies: Dysuria Musculoskeletal: Denies: Joint Pain, Joint Tenderness Skin: Denies: Rash, Wounds Neurological: Denies: Numbness, Tingling, Focal weakness Psychiatric: Denies: Anxiety, Depression, Homicidal Ideations, Suicidal Ideations Hematologic/ Lymphatic: Denies: Easy Bruising, Easy Bleeding VTE Information - Inpt Only VTE Present on Admission: No VTE Mechan Device Prophylaxis: Knee High HEMANTH Hose VTE Pharm Prophylaxis ordered?: No Reason prophylaxis not ordered:: Medical Contraindication Patient Problems: Active and Suspected Problems (Last Reviewed 05/22/19 @ 15:31 by Tessy Osorio) Encephalopathy (Acute) Vitamin B12 deficiency (Acute) - Physical Exam Vitals/I&O's: Vital Signs Temp Pulse Resp BP Pulse Ox 97.8 F 60 18 156/22 H 96 04/04/20 16:50 04/04/20 16:50 04/04/20 16:50 04/04/20 16:50 04/04/20 16:50 Oxygen Flow Rate (L/min) 1.5 Oxygen Delivery Method Nasal Cannula Weight: 99.6 kg Body Mass Index (BMI) 36.5 Finger Stick Blood Glucose 155 General: Alert, Oriented x3, Cooperative HEENT: Atraumatic, PERRLA, EOMI, Normocephalic Neck: Supple, No JVD, Negative Carotid Bruits Lungs: Clear to auscultation, Normal air movement Cardiovascular: Regular rate, No murmurs Abdomen: Bowel Sounds Present, Soft, Non Tender Extremities: No edema, Capillary Refill Less than 3 Seconds Skin: No rashes, No breakdown Musculoskeletal: No Tenderness to Palpation of Joints or Extremities Neurological: Cranial nerves II-XII grossly intact, - - Generalized weakenss. Psych/Mental Status: Normal Affect, Appropriate Laboratory Results 04/04/20 17:11: POC Glucose 275 H 04/04/20 21:00: POC Glucose 240 H Current Medications Acetaminophen (Tylenol) 650 mg PO Q4H PRN PRN PRN Reason: Pain Score 1-3/10 Anastrozole (Arimidex) 1 mg PO DAILY [facility] Aspirin (Ecotrin) 81 mg PO DAILY@0800 [facility] Atorvastatin Calcium (Lipitor) 80 mg PO QHS [facility] Last Admin: 04/04/20 21:06 Dose: 80 mg Documented by: Bisacodyl (Dulcolax) 10 mg RECTAL DAILY PRN PRN Reason: Constipation Calcium Carbonate (Tums) 500 mg PO DAILY@0800 [facility] Cholecalciferol (Vitamin D (25mcg)) 1,000 unit PO DAILY [facility] Cyanocobalamin (Vitamin B12) 1,000 mcg SC MOWEFR [facility] Fluconazole (Diflucan) 200 mg PO DAILY [facility] Stop: 04/18/20 06:01 Furosemide (Lasix) 40 mg PO DAILY [facility] Insulin Glargine (Lantus (Bkc)) 35 units SC DAILY [facility] Insulin Human Lispro (Humalog Kwikpen (Bkc)) 5 unit SC TID [facility] Last Admin: 04/04/20 21:03 Dose: 5 units Documented by: Insulin Human Lispro (Humalog Kwikpen (Bkc)) 0 unit SC ACHS [facility]; Protocol Last Admin: 04/04/20 21:03 Dose: 6 units Documented by: Isosorbide Mononitrate (Imdur) 30 mg PO DAILY [facility] Lactulose (Chronulac, Cephulac) 20 gm PO DAILY [facility] Losartan Potassium (Cozaar) 25 mg PO DAILY [facility] Melatonin (Melatonin) 6 mg PO QHS [facility] Last Admin: 04/04/20 21:06 Dose: 6 mg Documented by: Metoprolol Succinate (Toprol Xl (Beta Corin)) 25 mg PO DAILY [facility] Nystatin (Mycostatin Powder) 1 applic TOPICAL BID [facility]; Protocol Last Admin: 04/04/20 18:49 Dose: 1 applicatio Documented by: Ondansetron HCl (Zofran Odt) 4 mg PO Q6H PRN PRN PRN Reason: NAUSEA/VOMITING Last Admin: 04/04/20 18:13 Dose: 4 mg Documented by: Pantoprazole Sodium (Protonix) 40 mg PO BID [facility] Last Admin: 04/04/20 18:44 Dose: 40 mg Documented by: Polyethylene Glycol (Miralax) 17 gm PO BID [facility] Last Admin: 04/04/20 18:43 Dose: Not Given Documented by: Polysaccharide [facility] ([facility]rex 150) [facility] Potassium Chloride (K-Dur) 20 meq PO DAILY@0800 [facility] Prednisone () 20 mg PO DAILY@0800 [facility] Promethazine HCl (Phenergan Tablet) 25 mg PO DAILY PRN PRN PRN Reason: NAUSEA Senna/Docusate Sodium (Senokot-S, Clarisa-Colace) 1 tablet PO BID [facility] Last Admin: 04/04/20 18:43 Dose: Not Given Documented by: Sodium Biphosphate/Sodium Phosphate (Fleet Enema) 1 bottle RECTAL DAILY PRN PRN PRN Reason: Constipation Sucralfate (Carafate) 1 gm PO 1HR_ACHS [facility] Last Admin: 04/04/20 21:06 Dose: 1 gm Documented by: Tamsulosin HCl (Flomax) 0.4 mg PO DAILY@1730 [facility] Tramadol HCl (Ultram) 50 mg PO Q6H PRN PRN PRN Reason: Pain 1-05/30 Tuberculin PPD (Tubersol, Aplisol, Ppd) 5 tu ID X1 ONE Stop: 04/05/20 10:01 Tuberculin PPD (Tubersol, Aplisol, Ppd) 5 tu ID X1 ONE Stop: 04/12/20 10:01 Assessment/Plan All Active Problems (Last Reviewed 05/22/19 @ 15:31 by Tessy Osorio) Debility (Acute) Candidiasis (Acute) Upper gastrointestinal bleed (Acute) Guaiac positive stools (Acute) Gastric cardia ulcer (Acute) Acute kidney injury (Acute) Failure to thrive (Acute) Confusion (Acute) Encephalopathy (Acute) Vitamin B12 deficiency (Acute) Osteopenia (Acute) Breast cancer, right (Resolved) Facial droop (Acute) Generalized weakness (Acute) Multiple contusions (Acute) Acute kidney failure (Acute) Troponin I above reference range (Acute) UTI (urinary tract infection) (Acute) 80 year old female with below past medical history hospitalized for progressive generalized weakness, encephalopathy, etiology unknown, admitted to TCU with debility, here for rehabilitation, strengthening, prior to disposition determination. Debility - PT/OT. Pain - Tylenol 1000MG Q6H PRN pain (1-10). Bowel - Miralax 17GM BID, Senna/colace 1 tablet BID, Lactulose 20GM daily, Dulcolax 10MG FL daily PRN. Adult immunization - Administer Prevnar 13, Pneumovax 23, Fluzone as appropriate. DVT prophylaxis - Hold, recent GI bleed. Breast cancer - Anastrozole 1MG daily. Stroke - Aspirin 81MG daily. Coronary Artery Disease - Metoprolol succinate 25MG daily, Losartan 25MG daily, Imdur 30MG daily, Aspirin 81MG daily. Hyperlipidemia - Atorvastatin 40MG QHS. Vitamin B12 deficiency - B12 1000MCG SC MoWeFr. Edema - Lasix 40MG daily. Diabetes Mellitus II - Lantus 35 units QHS, Humalog 12 units TIDAC. Iron deficiency anemia - Ferrex 150MG daily. Insomnia - Melatonin 6MG QHS. Tinea Corporis - Nystatin powder topical BID. Nausea - Zofran ODT 4MG Q6H PRN. GERD - Pantoprazole 40MG daily. Urinary retention - Tamsulosin 0.4MG QPM, Indwelling Hernandez Catheter, voiding trials.
[2020-04-05] MEDS: Acetaminophen 500 MG Tablet 1000 MG PO (01:55)
[2020-04-05 04:38] VITALS: BP 156/66; PULSE 67; RESP 18; TEMP 36.6; O2SAT 97
[2020-04-05] MEDS: Lactulose 20 GM/30 ML UDC PO (04:41)
[2020-04-05] MEDS: Losartan Potassium 25 MG Tablet PO (04:41)
[2020-04-05] MEDS: Polyethylene Glycol 3350 17 GM PACKET PO ×2 (04:42→18:16)
[2020-04-05] MEDS: Pantoprazole Sodium 40 MG Tablet PO (04:42)
[2020-04-05] MEDS: Anastrozole 1 MG Tablet PO (04:43)
[2020-04-05 04:44] VITALS: BP 156/66; PULSE 67
[2020-04-05] MEDS: Senna/Docusate Sodium 1 Tablet PO ×2 (04:44→18:17)
[2020-04-05] MEDS: Metoprolol(XL)Succ 50 MG Tablet 25 MG PO (04:44)
[2020-04-05] MEDS: Furosemide 40 MG Tablet PO (04:44)
[2020-04-05] MEDS: Isosorbide Mononitrate 30 MG Tablet PO (04:45)
[2020-04-05] MEDS: Nystatin Powder 15gm Bottle 1 APPLIC TOPICAL ×2 (04:51→18:20)
[2020-04-05 06:26] LABS: Bedside Glucose 162 mg/dL (70-110)
[2020-04-05 06:51] LABS: Absolute Lymphocyte Count 2.13 X10^3/uL (0.83-4.51); Absolute Neutrophil Count 5.4 X10^3/uL (2.0-7.7); Basophil# 0.08 X10^3/uL; Basophil% 0.9 % (0-1); Eosinophil# 0.18 X10^3/uL; Hematocrit 35.8 % (37-47); Hemoglobin 11.3 g/dL (12.0-15.0); Lymphocyte # 2.13 X10^3/ul (4.0); Lymphocyte % 24.1 % (19-41); Mean Corp Hgb Conc 31.6 g/dL (32-36); Mean Corpuscular Hgb 29.3 pg (27.0-32.0); Mean Corpuscular Volume 92.7 fL (81-99); Mean Platelet Vol. 9.6 fl (6.2-12.0); Monocyte# 0.94 X10^3/uL; Monocyte% 10.7 % (0-10); NRBC Flagged by Analyzer 0 % (0-5); Neutrophil # 5.41 X10^3/uL (2.7-7.7); Neutrophil % 61.4 % (47-70); Platelet Count 294 K/mm3 (150-450); RBC Distribution Width CV 14.2 % (11.6-14.6); RBC Distribution Width SD 48.1 fl (35.1-43.9); Red Blood Count 3.86 M/mm3 (4.2-5.4); White Blood Count 8.8 K/mm3 (4.4-11.0)
[2020-04-05 07:15] LABS: Anion Gap 5 (5-15); BUN 21 mg/dL (7-18); BUN/Creat Ratio 20.8 RATIO (10-20); Calcium,Total 9.1 mg/dL (8.5-10.1); Chloride 101 mmol/L (98-107); Creatinine, Serum 1.01 mg/dL (0.55-1.02); EST Glomerular Filtration Rate 56 mL/min (>60); Est Glom Filt Rate - Afr Amer 68 mL/min (>60); Estimated Creatinine Clearance 41.31 ml/min; Glucose 159 mg/dL (74-106); Potassium 3.8 mmol/L (3.5-5.1); Sodium Level 140 mmol/L (136-145)
[2020-04-05] MEDS: Ondansetron ODT 4 MG Tablet PO ×3 (07:38→21:49)
--- NOTE | 2020-04-05 07:44 | RAD_ITS ---
STUDY: X-RAY - ABDOMEN/PELVIS REASON FOR EXAM: Female, 80 years old. Vomiting TECHNIQUE: KUB, 3 images. COMPARISON: CT abdomen and pelvis 03/31/2020 FINDINGS: Mild to moderate cardiomegaly, median sternotomy, AICD device. Stable left chronic loculated pleural effusion with pleural calcifications. Lumbar scoliosis, multilevel lumbar degenerative disc disease, osteophytosis and facet hypertrophy. Osteopenia. Grossly normal size and position of the solid organs of the abdomen. Scattered gas within nondilated small bowel, unremarkable pattern. Prominent stool within the ascending colon, mild in the transverse and descending colon, sigmoid and rectum, no evidence of constipation. No apparent free air. RAD/Abdomen Single View IMPRESSION: No definitive acute abdominopelvic process is evident. Electronically Signed: Juan Valdez MD at 9:33 EDT Tel , Service support ,
--- NOTE | 2020-04-05 08:14 | NURSING ---
Addendum entered by Madelin Monteiro 04/05/20 10:32: Dr. Kaur updated on KUB results, N.O. received Original Note: R' vomiting this AM, Zofran given per order. Dr. Kaur updated, N.O. for KUB. R' updated, continuing to monitor.
--- NOTE | 2020-04-05 10:34 | NURSING ---
This nurse spoke to son, code status confirmed.
[2020-04-05 11:10] LABS: Bedside Glucose 195 mg/dL (70-110)
[2020-04-05] MEDS: Tuberculin,Purif.prot.deriv. 50 TU/ML Vial 5 ML ID (11:36)
[2020-04-05] MEDS: Lactulose 20 GM/30 ML UDC 200 GM RECTAL (12:38)
[2020-04-05 13:38] VITALS: BP 151/62; PULSE 66; RESP 18; TEMP 36.7; O2SAT 96
[2020-04-05 16:26] LABS: Bedside Glucose 259 mg/dL (70-110)
--- NOTE | 2020-04-05 17:49 | PCM.PN.RX ---
<Barrington Barraza - Last Filed: 04/05/20 17:49> Progress Note - Pharmacy Subjective: [] TCU Admission Objective: Allergies amoxicillin [From Augmentin] Allergy (Verified 04/04/20 18:05) PT UNSURE OF REACTION clavulanic acid [From Augmentin] Allergy (Verified 04/04/20 18:05) PT UNSURE OF REACTION Iodinated Contrast Media [DYEE] Allergy (Verified 04/04/20 18:05) Anaphylaxis levofloxacin [From Levaquin] Allergy (Verified 04/04/20 18:05) Upset Stomach loratadine [From Claritin] Allergy (Verified 04/04/20 18:05) PT UNSURE OF REACTION hydrocodone bitartrate [From Vicodin] Adverse Reaction (Verified 04/04/20 18:05) Nausea/Vom/Diarrhea iodine Adverse Reaction (Verified 04/04/20 18:05) Nausea/Vom/Diarrhea Current Medications Generic Name Dose Route Start Last Admin Trade Name Freq PRN Reason Stop Dose Admin Acetaminophen 1,000 mg 04/04/20 22:23 04/05/20 01:55 Tylenol PO 1,000 mg Q6H PRN PRN Administration Pain Score 1-10/10 Anastrozole 1 mg 04/05/20 06:00 04/05/20 04:43 Arimidex PO 1 mg DAILY [facility] Administration Aspirin 81 mg 04/05/20 08:00 04/05/20 09:07 Ecotrin PO Not Given DAILY@0800 [facility] Atorvastatin Calcium 40 mg 04/05/20 22:00 Lipitor PO QHS [facility] Bisacodyl 10 mg 04/04/20 17:58 Dulcolax RECTAL DAILY PRN Constipation Cyanocobalamin 1,000 mcg 04/06/20 10:00 Vitamin B12 SC MOWEFR [facility] Furosemide 40 mg 04/05/20 06:00 04/05/20 04:44 Lasix PO 40 mg DAILY [facility] Administration Insulin Glargine 35 units 04/05/20 06:00 04/05/20 11:35 Lantus ([facility]) SC Not Given DAILY [facility] Insulin Human Lispro 12 unit 04/05/20 17:15 Humalog Kwikpen ([facility]) SC TIDAC [facility] Isosorbide Mononitrate 30 mg 04/05/20 06:00 04/05/20 04:45 Imdur PO 30 mg DAILY [facility] Administration Lactulose 20 gm 04/05/20 06:00 04/05/20 04:41 Chronulac, Cephulac PO 20 gm DAILY [facility] Administration Losartan Potassium 25 mg 04/05/20 06:00 04/05/20 04:41 Cozaar PO 25 mg DAILY [facility] Administration Melatonin 6 mg 04/04/20 22:00 04/04/20 21:06 Melatonin PO 6 mg QHS [facility] Administration Metoprolol Succinate 25 mg 04/05/20 06:00 04/05/20 04:44 Toprol Xl (Beta Corin) PO 25 mg DAILY [facility] Administration Nystatin 1 applic 04/04/20 18:00 04/05/20 04:51 Mycostatin Powder TOPICAL 1 applicatio BID [facility] Administration Protocol Ondansetron HCl 4 mg 04/04/20 17:47 04/05/20 15:47 Zofran Odt PO 4 mg Q6H PRN PRN Administration NAUSEA/VOMITING Pantoprazole Sodium 40 mg 04/05/20 06:00 04/05/20 04:42 Protonix PO 40 mg DAILY [facility] Administration Polyethylene Glycol 17 gm 04/04/20 18:00 04/05/20 04:42 Miralax PO 17 gm BID [facility] Administration Polysaccharide Iron Complex 150 mg 04/05/20 08:00 04/05/20 09:07 [facility] Senna/Docusate Sodium 1 tablet 04/04/20 18:00 04/05/20 04:44 Senokot-S, Clarisa-Colace PO 1 tablet BID [facility] Administration Tamsulosin HCl 0.4 mg 04/05/20 17:30 Flomax PO DAILY@1730 [facility] Tuberculin PPD 5 tu 04/12/20 10:00 Tubersol, Aplisol, Ppd ID 04/12/20 10:01 X1 ONE Problem List (Last Reviewed 05/22/19 @ 15:31 by Tessy Osorio) Encephalopathy (Acute) Vitamin B12 deficiency (Acute) Body mass index (bmi) 36.0-36.9, adult (Chronic) Nausea (Chronic) Urinary retention (Chronic) Insomnia (Chronic) Iron deficiency anemia (Chronic) GERD (gastroesophageal reflux disease) (Chronic) Vital Signs Temp Pulse Resp BP Pulse Ox 98.1 F 66 18 151/62 H 96 04/05/20 13:38 04/05/20 13:38 08/16/20 13:38 04/05/20 13:38 04/05/20 13:38 Oxygen Flow Rate (L/min) 1.5 Oxygen Delivery Method Nasal Cannula Weight: 99.6 kg Body Mass Index (BMI) 36.5 Finger Stick Blood Glucose 155 Sodium 140 mmol/L (136-145) 04/05/20 06:37 Potassium 3.8 mmol/L (3.5-5.1) 04/05/20 06:37 Chloride 101 mmol/L (98-107) 04/05/20 06:37 Carbon Dioxide 34.0 mmol/L (21.0-32.0) H 04/05/20 06:37 Anion Gap 5 (5-15) 04/05/20 06:37 BUN 21 mg/dL (7-18) H 04/05/20 06:37 Creatinine 1.01 mg/dL (0.55-1.02) 04/05/20 06:37 Est GFR (MDRD) Af Amer 68 mL/min (>60) 04/05/20 06:37 Est GFR (MDRD) Non-Af 56 mL/min (>60) L 04/05/20 06:37 BUN/Creatinine Ratio 20.8 RATIO (10-20) H 04/05/20 06:37 Glucose 159 mg/dL (74-106) H 04/05/20 06:37 Assessment/Plan: 1) Pain: Acetaminophen 1000mg po q6h prn for pain 1-05/30. Please continue to monitor prn usage and for signs/symptoms of increased/decreased pain. 2) Breast Cancer: Anastrozole 1mg po daily. Please consider a bone density test if pt has not already had one due to pt being on Anastrozole. Thanks 3) Hyperlipidemia: Atorvastatin 40mg po qhs. Pt's LFT's and Lipid panel are within normal limits. Please continue to monitor. Please continue to monitor for signs/symptoms of muscle/joint pain. Thanks 4) GERD: Pantoprazole 40mg po daily. Please continue to monitor for signs/symptoms of GERD. 5) Nausea: Ondansetron 4mg po q6h prn for nausea/vomiting. Please continue to monitor prn usage and for signs/symptoms of increased nausea/vomiting 6) Diabetes: Lantus 35units subq daily, Humalog 12units subq tid before meals. Please continue to monitor pt's blood sugars and adjust accordingly. 7) Edema: Furosemide 40mg po daily. Pt's Na is 140, K+ is 3.8, SrCr is 1.01, and CrCl is 41.31. Please continue to monitor labs. Pt's urine output on 04/05 was 2300mls. Please continue to monitor. 8) Stroke, CAD: Aspirin 81mg po daily, Metoprolol Succinate 25mg po daily, Losartan 25mg po daily, Imdur 30mg po daily. Pt's K+ is 3.8, SrCr is 1.01, and BUN is 21. Please continue to monitor labs. Pt's average pulse rate is 64 and is in normal rhythm. Pt's average blood pressure is 154.75/54. Please continue to monitor. Psychotropic Medications: Insomnia: Melatonin 6mg po qhs. Medication will be due for a GDR 06/2020 unless clinically contraindicated Unnecessary Medications: none Bowel Regimen: Bisacodyl 10mg rectally daily prn for constipation, Lactulose 20gm po daily, Miralax 17gm po bid, Senna/Docusate 1 tablet po bid. Please continue to monitor prn usage and for signs/symptoms of constipation/diarrhea. Date of Note:: 04/05/20 - Provider Comments Provider responsibility: Provider responsible to enter orders to implement recommendations <Hao Kaur Chi - Last Filed: 04/05/20 20:28> Progress Note - Pharmacy Subjective: [] Objective: Allergies amoxicillin [From Augmentin] Allergy (Verified 04/04/20 18:05) PT UNSURE OF REACTION clavulanic acid [From Augmentin] Allergy (Verified 04/04/20 18:05) PT UNSURE OF REACTION Iodinated Contrast Media [DYEE] Allergy (Verified 04/04/20 18:05) Anaphylaxis levofloxacin [From Levaquin] Allergy (Verified 04/04/20 18:05) Upset Stomach loratadine [From Claritin] Allergy (Verified 04/04/20 18:05) PT UNSURE OF REACTION hydrocodone bitartrate [From Vicodin] Adverse Reaction (Verified 04/04/20 18:05) Nausea/Vom/Diarrhea iodine Adverse Reaction (Verified 04/04/20 18:05) Nausea/Vom/Diarrhea Current Medications Generic Name Dose Route Start Last Admin Trade Name Freq PRN Reason Stop Dose Admin Acetaminophen 1,000 mg 04/04/20 22:23 04/05/20 01:55 Tylenol PO 1,000 mg Q6H PRN PRN Administration Pain Score 1-10/10 Anastrozole 1 mg 04/05/20 06:00 04/05/20 04:43 Arimidex PO 1 mg DAILY [facility] Administration Aspirin 81 mg 04/05/20 08:00 04/05/20 09:07 Ecotrin PO Not Given DAILY@0800 [facility] Atorvastatin Calcium 40 mg 04/05/20 22:00 Lipitor PO QHS [facility] Bisacodyl 10 mg 04/04/20 17:58 Dulcolax RECTAL DAILY PRN Constipation Cyanocobalamin 1,000 mcg 04/06/20 10:00 Vitamin B12 SC MOWEFR [facility] Furosemide 40 mg 04/05/20 06:00 04/05/20 04:44 Lasix PO 40 mg DAILY [facility] Administration Insulin Glargine 35 units 04/05/20 06:00 04/05/20 11:35 Lantus (Bk) SC Not Given DAILY [facility] Insulin Human Lispro 12 unit 04/05/20 17:15 04/05/20 18:16 Humalog Kwikpen (Bk) SC 12 units TIDAC [facility] Administration Isosorbide Mononitrate 30 mg 04/05/20 06:00 04/05/20 04:45 Imdur PO 30 mg DAILY [facility] Administration Lactulose 20 gm 04/05/20 06:00 04/05/20 04:41 Chronulac, Cephulac PO 20 gm DAILY [facility] Administration Losartan Potassium 25 mg 04/05/20 06:00 04/05/20 04:41 Cozaar PO 25 mg DAILY [facility] Administration Melatonin 6 mg 04/04/20 22:00 04/04/20 21:06 Melatonin PO 6 mg QHS [facility] Administration Metoprolol Succinate 25 mg 04/05/20 06:00 04/05/20 04:44 Toprol Xl (Beta Corin) PO 25 mg DAILY [facility] Administration Nystatin 1 applic 04/04/20 18:00 04/05/20 18:20 Mycostatin Powder TOPICAL 1 applicatio BID [facility] Administration Protocol Ondansetron HCl 4 mg 04/04/20 17:47 04/05/20 15:47 Zofran Odt PO 4 mg Q6H PRN PRN Administration NAUSEA/VOMITING Pantoprazole Sodium 40 mg 04/05/20 06:00 04/05/20 04:42 Protonix PO 40 mg DAILY [facility] Administration Polyethylene Glycol 17 gm 04/04/20 18:00 04/05/20 18:16 Miralax PO 17 gm BID [facility] Administration Polysaccharide Iron Complex 150 mg 04/05/20 08:00 04/05/20 09:07 Ferrex 150 PO Not Given DAILYCM [facility] Senna/Docusate Sodium 1 tablet 04/04/20 18:00 04/05/20 18:17 Senokot-S, Clarisa-Colace PO 1 tablet BID [facility] Administration Tamsulosin HCl 0.4 mg 04/05/20 17:30 04/05/20 18:03 Flomax PO Not Given DAILY@1730 [facility] Tuberculin PPD 5 tu 04/12/20 10:00 Tubersol, Aplisol, Ppd ID 04/12/20 10:01 X1 ONE Problem List (Last Reviewed 05/22/19 @ 15:31 by Tessy Osorio) Encephalopathy (Acute) Vitamin B12 deficiency (Acute) Body mass index (bmi) 36.0-36.9, adult (Chronic) Nausea (Chronic) Urinary retention (Chronic) Insomnia (Chronic) Iron deficiency anemia (Chronic) GERD (gastroesophageal reflux disease) (Chronic) Vital Signs Temp Pulse Resp BP Pulse Ox 98.1 F 66 18 151/62 H 96 04/05/20 13:38 04/05/20 13:38 04/05/20 13:38 04/05/20 13:38 04/05/20 13:38 Oxygen Flow Rate (L/min) 1.5 Oxygen Delivery Method Nasal Cannula Weight: 99.6 kg Body Mass Index (BMI) 36.5 Finger Stick Blood Glucose 155 Sodium 140 mmol/L (136-145) 04/05/20 06:37 Potassium 3.8 mmol/L (3.5-5.1) 04/05/20 06:37 Chloride 101 mmol/L (98-107) 04/05/20 06:37 Carbon Dioxide 34.0 mmol/L (21.0-32.0) H 04/05/20 06:37 Anion Gap 5 (5-15) 04/05/20 06:37 BUN 21 mg/dL (7-18) H 04/05/20 06:37 Creatinine 1.01 mg/dL (0.55-1.02) 04/05/20 06:37 Est GFR (MDRD) Af Amer 68 mL/min (>60) 04/05/20 06:37 Est GFR (MDRD) Non-Af 56 mL/min (>60) L 04/05/20 06:37 BUN/Creatinine Ratio 20.8 RATIO (10-20) H 04/05/20 06:37 Glucose 159 mg/dL (74-106) H 04/05/20 06:37 Assessment/Plan: Psychotropic Medications: Unnecessary Medications: Bowel Regimen: - Provider Comments Provider responsibility: Provider responsible to enter orders to implement recommendations Provider Comments to Recommendations by Pharmacy: Agree
[2020-04-05] MEDS: Insulin Lispro 100 UNIT/ML INSULN.PEN 12 UNIT SC (18:16)
[2020-04-05 21:16] LABS: Bedside Glucose 159 mg/dL (70-110)
[2020-04-05] MEDS: MELATONIN 3 MG TABLET 6 MG PO (22:16)
[2020-04-05] MEDS: Atorvastatin Calcium 40 MG Tablet PO (22:16)
[2020-04-06 04:23] VITALS: BP 137/73; PULSE 94; RESP 18; TEMP 36.8; O2SAT 96
[2020-04-06] MEDS: Ondansetron ODT 4 MG Tablet PO (04:28)
[2020-04-06] MEDS: Lactulose 20 GM/30 ML UDC PO (04:40)
[2020-04-06] MEDS: Furosemide 40 MG Tablet PO (04:41)
[2020-04-06] MEDS: Anastrozole 1 MG Tablet PO (04:41)
[2020-04-06] MEDS: Senna/Docusate Sodium 1 Tablet PO ×2 (04:41→17:59)
[2020-04-06] MEDS: Pantoprazole Sodium 40 MG Tablet PO (04:42)
[2020-04-06] MEDS: Isosorbide Mononitrate 30 MG Tablet PO (04:42)
[2020-04-06] MEDS: Losartan Potassium 25 MG Tablet PO (04:42)
[2020-04-06 04:43] VITALS: BP 137/73; PULSE 94
[2020-04-06] MEDS: Polyethylene Glycol 3350 17 GM PACKET PO (04:43)
[2020-04-06] MEDS: Metoprolol(XL)Succ 50 MG Tablet 25 MG PO (04:43)
[2020-04-06] MEDS: Nystatin Powder 15gm Bottle 1 APPLIC TOPICAL ×2 (04:47→18:00)
[2020-04-06 06:26] LABS: Bedside Glucose 238 mg/dL (70-110)
[2020-04-06] MEDS: Insulin Lispro 100 UNIT/ML INSULN.PEN 12 UNIT SC ×3 (08:35→17:59)
[2020-04-06] MEDS: Cyanocobalamin (B12) 1,000 MCG/ML Vial 1000 MCG SC (08:36)
[2020-04-06 11:21] LABS: Bedside Glucose 263 mg/dL (70-110)
[2020-04-06] MEDS: Glucerna Shake 120 ML LIQUID PO ×3 (12:08→20:31)
[2020-04-06 13:59] VITALS: BP 76/43; PULSE 81; RESP 16; TEMP 36.1; O2SAT 96
[2020-04-06 14:24] VITALS: BP 88/49; TEMP 36.8
--- NOTE | 2020-04-06 14:28 | CASEMGMT ---
Social Work Spoke with son to discuss DC date st for 04/17 and recommending SNF. Son understood and agreeable. Emailed list of SNFs in network with [employer] and can accept Medicaid pending. Son to decide with pt and notify SW at care plan meeting 04/08. Will continue to follow. Millie Mann, [employer] STILL OPERATOR
--- NOTE | 2020-04-06 16:03 | CHAPLAIN ---
Type of Pastoral Visit ___ Initial Visit _x__ Follow-up Visit ___ On-call Visit ___ General Patient Visit ___ Spiritual Assessment ___ Family Conference ___ Bereavement ___ Rapid Response ___ Code Blue ___ Other (describe below) Pastoral Care Referral From _x__ Patient ___ Family ___ Nurse ___ Physician ___ Water Treatment Operator ___ Merchant Tailor ___ Other (describe below) Sacrament/Intervention _x__ Active listening ___ Anointing ___ Scientologist ___ Bereavement ___ Communion _x__ Simran exploration ___ ___ Life review _x__ Prayer ___ Reconciliation ___ Sacrament of Sick _x__ Supportive presence ___ Wedding ___ Other (describe below) Pastoral Comments patient states she want so to go home but says she accepts what the Lord gives
[2020-04-06 16:35] LABS: Bedside Glucose 242 mg/dL (70-110)
[2020-04-06 17:07] VITALS: BP 120/53; PULSE 81
--- NOTE | 2020-04-06 17:57 | CON.PCM_ITS ---
Problem List (1) Otalgia of left ear Status: Acute Reason for Consult Date of Consultation: 04/06/20 Reason for Consultation: left ear pain History of Present Illness: The patient is a 80 year old F with complaint of left ear pain over the last few days. She reports that this started after her spinal tap during which she felt that her face was pressed against the table and resulted in discomfort in her teeth jaw and left ear. She denies that this is worsening or improving since its onset and is unable to relate any modifying factors that make it better or worse. She is unable to give me quantitation of the severity of the pain but at the bedside does not need seem to be any significant distress. It is unclear whether she has suffered ear pain or TMJ pain in the past as she makes a vague reference to prior discomfort in this area. She denies any drainage from the ear, hearing loss, or dizziness. Other than the trauma she recounts with her spinal tap she denies any self-inflicted injury to the ear or instrumentation of her ear canals. [] Past Medical History Past Medical History (Chronic Problems): Chronic Problems (Last Reviewed 05/22/19 @ 15:31 by Tessy Osorio) Coronary artery disease (Chronic) Stroke (Chronic) Breast cancer (Chronic) HTN (hypertension) (Chronic) HLD (hyperlipidemia) (Chronic) Obesity (BMI 30-39.9) (Chronic) Body mass index (bmi) 36.0-36.9, adult (Chronic) Nausea (Chronic) Urinary retention (Chronic) Insomnia (Chronic) Iron deficiency anemia (Chronic) GERD (gastroesophageal reflux disease) (Chronic) History of right breast cancer (Chronic) History of stroke (Chronic) Diabetes (Chronic) History of pacemaker (Chronic) History of cardiac defibrillator placement (Chronic) Anemia (Chronic) GI bleed (Chronic) Medical History: Medical History (Last Reviewed 05/22/19 @ 15:31 by Tessy Osorio) Cardiac defibrillator in place Z95.810 Diabetes mellitus E11.9 Heart disease I51.9 Left arm surgery Pacemaker Z95.0 2018 Stroke I63.9 2018 heart cath 2018 Allergies amoxicillin [From Augmentin] Allergy (Verified 04/04/20 18:05) PT UNSURE OF REACTION clavulanic acid [From Augmentin] Allergy (Verified 04/04/20 18:05) PT UNSURE OF REACTION Iodinated Contrast Media [DYEE] Allergy (Verified 04/04/20 18:05) Anaphylaxis levofloxacin [From Levaquin] Allergy (Verified 04/04/20 18:05) Upset Stomach loratadine [From Claritin] Allergy (Verified 04/04/20 18:05) PT UNSURE OF REACTION hydrocodone bitartrate [From Vicodin] Adverse Reaction (Verified 04/04/20 18:05) Nausea/Vom/Diarrhea iodine Adverse Reaction (Verified 04/04/20 18:05) Nausea/Vom/Diarrhea Home Medications: Ambulatory Orders Medication Instructions Recorded Acetaminophen [Tylenol] 650 mg PO Q4H PRN PRN 03/02/20 Anastrozole [Arimidex] 1 mg PO DAILY 03/02/20 Aspirin E.C. [Ecotrin] 81 mg PO DAILY@0800 03/02/20 Atorvastatin Calcium [Lipitor] 80 mg PO QHS 03/02/20 Calcium Carbonate 500 mg PO DAILY 03/02/20 Cholecalciferol (VIT D3) [Vitamin 1,000 unit PO DAILY 03/02/20 D3] Insulin Detemir [Levemir Flextouch] 35 unit SQ DAILY 03/02/20 Insulin Lispro [Humalog KwikPen] 5 unit SQ TID 03/02/20 Insulin Lispro [Humalog KwikPen] See Protocol SQ ACHS 03/02/20 Isosorbide Mononitrate [Isosorbide 30 mg PO DAILY 03/02/20 Mononitrate ER] Losartan Potassium [Cozaar] 25 mg PO DAILY 03/02/20 Magnesium Hydroxide [Milk of 30 ml PO DAILY PRN PRN 03/02/20 Magnesia] Melatonin 6 mg PO QHS 03/02/20 Metoprolol Succinate [Toprol Xl] 25 mg PO DAILY 03/02/20 Ondansetron HCl [Zofran] 4 mg PO Q6H PRN PRN 03/02/20 Polyethylene Glycol 3350 17 gm PO BID 03/02/20 Prednisone 20 mg PO DAILY 03/02/20 Promethazine HCl 25 mg PO DAILY PRN PRN 03/02/20 Sodium Phosphate,Dickenson-Dibasic 1 bottle [place] DAILY PRN PRN 03/02/20 [Fleet Enema] Tramadol HCl [Ultram] 50 mg PO Q6H PRN PRN 03/02/20 Ferrous Sulfate 325 mg PO 1200,1700 03/06/20 Fluconazole [Diflucan] 200 mg PO DAILY 03/06/20 Furosemide [Lasix] 40 mg PO DAILY #0 03/06/20 Pantoprazole Sodium [Protonix] 40 mg PO BID 03/06/20 Sucralfate [Carafate] 1 gm PO 1HR_ACHS 03/06/20 Tamsulosin HCl [Flomax] 0.4 mg PO DAILY@1730 03/06/20 Cyanocobalamin (Vitamin B-12) 1,000 mcg IJ MOWEFR 04/01/20 [Cyanocobalamin Injection] Iron Polysaccharide Complex 150 mg PO DAILY 04/01/20 [Ferrex 150] Lactulose [Chronulac] 20 gm PO DAILY 04/01/20 Nystatin 15 gm TP BID 04/01/20 Potassium Chloride 20 meq PO DAILY 04/01/20 Sennosides/Docusate Sodium 1 ea PO DAILY 04/01/20 [Senna-Docusate Sodium Tablet] Surgical History: Surgical History (Last Reviewed 05/22/19 @ 15:31 by Tessy Osorio) History of appendectomy Z98.890, Z90.49 History of cataract extraction Z98.49 History of cholecystectomy Z98.890, Z90.49 History of hernia repair Z98.890, Z87.19 History of open heart surgery Z98.890 History of tonsillectomy Z98.890, Z90.89 Surgical History: appendectomy, cataract, cholecystectomy, coronary bypass surgery, herniorrhaphy, pacemaker implantation, tonsillectomy, - - Left arm surgery. Psychiatric History: No pertinent psych hx [employer] History: No pertinent [employer]IAN history Lives: [facility] Smoking Status: Never smoker Tobacco Use: Non-smoker, Cigarettes Drugs: None - *Family History Maternal Family History: Family History (Last Reviewed 05/22/19 @ 15:31 by Tessy Osorio) Mother Arthritis History Items: No pertinent history Paternal Family History: Family History (Last Reviewed 05/22/19 @ 15:31 by Tessy Osorio) Mother Arthritis History Items: No pertinent history Review of Systems Constitutional: Denies: Anorexia, Chills, Fever, Night Sweats Eyes: Denies: Blurred vision, Cataracts, Drainage HEENT: Reports: Ear Pain. Denies: Difficulty Hearing, Difficulty Swallowing, Dysphasia, Hearing Changes, Nasal bleeding, Nasal Congestion, Sinus Drainage Cardiovascular: Denies: Chest Pain, Edema Respiratory: Denies: Cough, Hemoptysis, Shortness of Breath Gastrointestinal: Denies: Abdominal Pain, Constipation Musculoskeletal: Reports: Joint stiffness Skin: Denies: Dryness, Jaundice Neurological: Denies: Balance problems Endocrine: Denies: Change in Body Habitus Hematologic/ Lymphatic: Denies: Adenopathy Patient Problems: Active and Suspected Problems (Last Reviewed 05/22/19 @ 15:31 by Tessy Osorio) Encephalopathy (Acute) Vitamin B12 deficiency (Acute) Otalgia of left ear (Acute) Subjective: Patient is well-appearing female in her hospital bed who is alert and cooperative with examination. There is no to be mild tenderness to palpation over the left temporomandibular joint. The ear canals intact without erythema or exudate. Tympanic membranes are intact bilaterally without middle ear effusion. T scan of the brain from last week is reviewed which showed no disease of the middle ear cleft, mastoid, or external auditory canals. Hearing is intact to spoken voice and finger rub bilaterally. - Physical Exam Vitals/I&O's: Vital Signs Temp Pulse Resp BP Pulse Ox 98.2 F 81 16 120/53 L 96 04/06/20 14:24 04/06/20 17:07 04/06/20 13:59 04/06/20 17:07 04/06/20 13:59 Oxygen Flow Rate (L/min) 1.5 Oxygen Delivery Method Room Air Weight: 99.6 kg Body Mass Index (BMI) 36.5 Finger Stick Blood Glucose 155 Intake and Output for Last 24 Hours 04/04/20 04/05/20 04/06/20 23:59 23:59 23:59 Intake Total 480 / 480 120 / 120 Output Total 700 / 700 2300 / 2300 1400 / 1400 Balance -700 / -700 -1820 / -1820 -1280 / -1280 General: Alert, Oriented x3, Cooperative, No apparent distress HEENT: Atraumatic, PERRLA, EOMI Oral: Moist Mucosa, No Gingival or Mucosal Lesions/ Ulcerations Neck: Supple, Trachea Midline Lungs: Normal air movement, No rhonchi, No wheeze Cardiovascular: Regular rate, Regular Rhythm Extremities: No cyanosis, No edema Psych/Mental Status: Alert and oriented to time, place, person, mood and affect Laboratory Results 04/05/20 21:10: POC Glucose 159 H 04/06/20 06:22: POC Glucose 238 H 04/06/20 11:05: POC Glucose 263 H 04/06/20 16:17: POC Glucose 242 H Current Medications Acetaminophen (Tylenol) 1,000 mg PO Q6H PRN PRN PRN Reason: Pain Score 1-10/10 Last Admin: 04/05/20 01:55 Dose: 1,000 mg Documented by: Anastrozole (Arimidex) 1 mg PO DAILY [facility] Last Admin: 04/06/20 04:41 Dose: 1 mg Documented by: Aspirin (Ecotrin) 81 mg PO DAILY@0800 [facility] Last Admin: 04/06/20 08:32 Dose: Not Given Documented by: Atorvastatin Calcium (Lipitor) 40 mg PO QHS [facility] Last Admin: 04/05/20 22:16 Dose: 40 mg Documented by: Bisacodyl (Dulcolax) 10 mg RECTAL DAILY PRN PRN Reason: Constipation Cyanocobalamin (Vitamin B12) 1,000 mcg SC MOWEFR [facility] Last Admin: 04/06/20 08:36 Dose: 1,000 mcg Documented by: Furosemide (Lasix) 40 mg PO DAILY [facility] Last Admin: 04/06/20 04:41 Dose: 40 mg Documented by: Insulin Glargine (Lantus (Bkc)) 35 units SC DAILY [facility] Last Admin: 04/06/20 08:31 Dose: Not Given Documented by: Insulin Human Lispro (Humalog Kwikpen (Bkc)) 12 unit SC TIDAC [facility] Last Admin: 04/06/20 12:08 Dose: 12 units Documented by: Isosorbide Mononitrate (Imdur) 30 mg PO DAILY [facility] Last Admin: 04/06/20 04:42 Dose: 30 mg Documented by: Lactulose (Chronulac, Cephulac) 20 gm PO DAILY [facility] Last Admin: 04/06/20 04:40 Dose: 20 gm Documented by: Losartan Potassium (Cozaar) 25 mg PO DAILY [facility] Last Admin: 04/06/20 04:42 Dose: 25 mg Documented by: Melatonin (Melatonin) 6 mg PO QHS [facility] Last Admin: 04/05/20 22:16 Dose: 6 mg Documented by: Metoprolol Succinate (Toprol Xl (Beta Corin)) 25 mg PO DAILY [facility] Last Admin: 04/06/20 04:43 Dose: 25 mg Documented by: Nutritional Formula (Lactose Free) (Glucerna Shake) 120 ml PO 4X/DAY [facility] Last Admin: 04/06/20 12:08 Dose: 120 ml Documented by: Nystatin (Mycostatin Powder) 1 applic TOPICAL BID [facility]; Protocol Last Admin: 04/06/20 04:47 Dose: 1 applicatio Documented by: Ondansetron HCl (Zofran Odt) 4 mg PO Q6H PRN PRN PRN Reason: NAUSEA/VOMITING Last Admin: 04/06/20 04:28 Dose: 4 mg Documented by: Pantoprazole Sodium (Protonix) 40 mg PO DAILY [facility] Last Admin: 04/06/20 04:42 Dose: 40 mg Documented by: Polyethylene Glycol (Miralax) 17 gm PO BID [facility] Last Admin: 04/06/20 04:43 Dose: 17 gm Documented by: Polysaccharide Iron Complex (Ferrex 150) 150 mg PO DAILYCM [facility] Last Admin: 04/06/20 08:33 Dose: Not Given Documented by: Senna/Docusate Sodium (Senokot-S, Clarisa-Colace) 1 tablet PO BID [facility] Last Admin: 04/06/20 04:41 Dose: 1 tablet Documented by: Tamsulosin HCl (Flomax) 0.4 mg PO DAILY@1730 [facility] Last Admin: 04/05/20 18:03 Dose: Not Given Documented by: Tuberculin PPD (Tubersol, Aplisol, Ppd) 5 tu ID [id number] Stop: 04/12/20 10:01 Assessment/Plan All Active Problems (Last Reviewed 05/22/19 @ 15:31 by Tessy Osorio) Debility (Acute) Candidiasis (Acute) Upper gastrointestinal bleed (Acute) Guaiac positive stools (Acute) Gastric cardia ulcer (Acute) Acute kidney injury (Acute) Failure to thrive (Acute) Confusion (Acute) Encephalopathy (Acute) Vitamin B12 deficiency (Acute) Otalgia of left ear (Acute) Osteopenia (Acute) Breast cancer, right (Resolved) Facial droop (Acute) Generalized weakness (Acute) Multiple contusions (Acute) Acute kidney failure (Acute) Troponin I above reference range (Acute) UTI (urinary tract infection) (Acute) Nerissa is a 80-year-old female who presents with complaints of left ear pain after spinal tap procedure which she states there was some pressure on her face due to her positioning on the bed. She has some mild tenderness of the temporomandibular joint and this may be exacerbated by this positioning however I see no evidence of fracture, injury to the external auditory canal, or suggestion of middle ear disease. I have offered her reassurance and suggested use of warm compress over this area but would anticipate recovery without sign ificant lasting injury and reassurance is offered.
[2020-04-06] MEDS: Tamsulosin HCl 0.4 MG Capsule PO (17:59)
--- NOTE | 2020-04-06 18:04 | NURSING ---
Addendum entered by Joy Alvarez 04/06/20 18:40: new order for warm compresses PRN Original Note: Dr Blake here to assess pt LT ear pain.
[2020-04-06 20:16] VITALS: PULSE 89; O2SAT 94
[2020-04-06] MEDS: MELATONIN 3 MG TABLET 6 MG PO (20:27)
[2020-04-06] MEDS: Atorvastatin Calcium 40 MG Tablet PO (20:27)
[2020-04-06] MEDS: Menthol/Lanolin/Calamine/Znox 113 GM Tube 1 APPLIC TOPICAL (20:39)
[2020-04-06 21:46] LABS: Bedside Glucose 244 mg/dL (70-110)
--- NOTE | 2020-04-06 22:08 | DCINST_ITS ---
- Discharge Diagnoses Current Active Problems: Current Active and Chronic Problems (Last Reviewed 05/22/19 @ 15:31 by Tessy Osorio) Encephalopathy (Acute) Vitamin B12 deficiency (Acute) Body mass index (bmi) 36.0-36.9, adult (Chronic) Nausea (Chronic) Urinary retention (Chronic) Insomnia (Chronic) Iron deficiency anemia (Chronic) GERD (gastroesophageal reflux disease) (Chronic) Otalgia of left ear (Acute) You will use the following diet at home:: No restrictions, Regular Your food should be the consistency of: Regular Your liquids should be the consistency of: Regular/Thin Discharge Activity: Return to Normal Activity, May Shower, Use Walker Weight Bearing Status: Weight bearing as tolerated Call your doctor if you observe: Fever of 101 or Higher, Inability to urinate, Inability to have a bowel movement, Shortness of breath, Chest pain, Uncontrolled pain Allergies/Adverse Reactions: Allergies amoxicillin [From Augmentin] Allergy (Verified 04/04/20 18:05) PT UNSURE OF REACTION clavulanic acid [From Augmentin] Allergy (Verified 04/04/20 18:05) PT UNSURE OF REACTION Iodinated Contrast Media [DYEE] Allergy (Verified 04/04/20 18:05) Anaphylaxis levofloxacin [From Levaquin] Allergy (Verified 04/04/20 18:05) Upset Stomach loratadine [From Claritin] Allergy (Verified 04/04/20 18:05) PT UNSURE OF REACTION hydrocodone bitartrate [From Vicodin] Adverse Reaction (Verified 04/04/20 18:05) Nausea/Vom/Diarrhea iodine Adverse Reaction (Verified 04/04/20 18:05) Nausea/Vom/Diarrhea Medications to take at Discharge Anastrozole [Arimidex] 1 mg PO DAILY 03/02/20 Aspirin E.C. [Ecotrin] 81 mg PO DAILY@0800 03/02/20 Atorvastatin Calcium [Lipitor] 80 mg PO QHS 03/02/20 Insulin Detemir [Levemir Flextouch] 35 unit SQ DAILY 03/02/20 Insulin Lispro [Humalog KwikPen] 5 unit SQ TID 03/02/20 Isosorbide Mononitrate [Isosorbide Mononitrate ER] 30 mg PO DAILY 03/02/20 Losartan Potassium [Cozaar] 25 mg PO DAILY 03/02/20 Melatonin 6 mg PO QHS 03/02/20 Metoprolol Succinate [Toprol Xl] 25 mg PO DAILY 03/02/20 Ondansetron HCl [Zofran] 4 mg PO Q6H PRN PRN 03/02/20 Polyethylene Glycol 3350 17 gm PO BID 03/02/20 Furosemide [Lasix] 40 mg PO DAILY #0 03/06/20 Pantoprazole Sodium [Protonix] 40 mg PO BID 03/06/20 Tamsulosin HCl [Flomax] 0.4 mg PO DAILY@1730 03/06/20 Cyanocobalamin (Vitamin B-12) [Cyanocobalamin Injection] 1,000 mcg IJ MOWEFR 04/01/20 Iron Polysaccharide Complex [Ferrex 150] 150 mg PO DAILY 04/01/20 Lactulose [Chronulac] 20 gm PO DAILY 04/01/20 Nystatin 15 gm TP BID 04/01/20 Acetaminophen [Tylenol] 1,000 mg PO Q6H PRN PRN tablet 04/06/20 Bisacodyl [Dulcolax] 10 mg RECTAL DAILY PRN suppos. 04/06/20 Glucerna Shake 120 ml PO 4X/DAY liquid 04/06/20 Menthol/Lanolin/Calamine/Znox [Calmoseptine Ointment] 1 applic TOPICAL 0600,2200 tube 04/06/20 Mineral Oil/Petrolatum,White [Eucerin] 1 applic TOPICAL 0600,2200 jar 04/06/20 Senna/Docusate Sodium [Senokot-S] 1 tablet PO BID tablet 04/06/20 Primary Care Physician: Ab Escobar MD [Primary Care Provider] - Please follow up with your Primary Care Physician in: 1 week. Test Results: Test results from this visit will be discussed in further detail at your follow- up appointment, if applicable. Please Follow Up With: Arie Hendricks MD - progressive generalized weakness. When: As soon as possible. Proposed Discharge Date: 04/17/20
--- NOTE | 2020-04-06 22:10 | PCM.DC.SUM ---
Discharge Date and Diagnosis - Problem List Patient Problems: Active and Suspected Problems (Last Reviewed 05/22/19 @ 15:31 by Tessy Osorio) Encephalopathy (Acute) Vitamin B12 deficiency (Acute) Otalgia of left ear (Acute) Date of Admission: 04/04/20 Date of Discharge: 04/17/20 - Primary Discharge Diagnosis Acute Problems: Active Problems (Last Reviewed 05/22/19 @ 15:31 by Tessy Osorio) Encephalopathy (Acute) Vitamin B12 deficiency (Acute) Otalgia of left ear (Acute) - Secondary Discharge Diagnosis Chronic Problems: Chronic Problems (Last Reviewed 05/22/19 @ 15:31 by Tessy Osorio) Coronary artery disease (Chronic) Stroke (Chronic) Breast cancer (Chronic) HTN (hypertension) (Chronic) HLD (hyperlipidemia) (Chronic) Obesity (BMI 30-39.9) (Chronic) Body mass index (bmi) 36.0-36.9, adult (Chronic) Nausea (Chronic) Urinary retention (Chronic) Insomnia (Chronic) Iron deficiency anemia (Chronic) GERD (gastroesophageal reflux disease) (Chronic) History of right breast cancer (Chronic) History of stroke (Chronic) Diabetes (Chronic) History of pacemaker (Chronic) History of cardiac defibrillator placement (Chronic) Anemia (Chronic) GI bleed (Chronic) Hospital Course and Treatment Imaging Results: 04/06/20 11:15 Diet: Vegetarian - ConsCHO - Olayinka Cont Food consistency:: Regular Liquid Consistency:: Regular/Thin Is pt able to select menu?: Yes How many daily calories?: 1800 calorie Clinical Impression(s) from Imaging Studies KUB X-Ray 04/05/20 07:44 IMPRESSION: No definitive acute abdominopelvic process is evident. Electronically Signed: Juan Valdez MD at 9:33 EDT Tel , Service support , Labs (Last 48 Hours) 04/05/20 04/05/20 04/05/20 06:18 06:37 06:37 WBC 8.8 RBC 3.86 L Hgb 11.3 L Hct 35.8 L MCV 92.7 MCH 29.3 MCHC 31.6 L RDW Std Deviation 48.1 H RDW Coeff of Gunnar 14.2 Plt Count 294 MPV 9.6 Immature Gran % (Auto) 0.900 Neut % (Auto) 61.4 Lymph % (Auto) 24.1 Bacon % (Auto) 10.7 H Eos % (Auto) 2.0 Baso % (Auto) 0.9 Absolute Neuts (auto) 5.4 Absolute Lymphs (auto) 2.13 Nucleated RBC % 0 Sodium 140 Potassium 3.8 Chloride 101 Carbon Dioxide 34.0 H Anion Gap 5 BUN 21 H Creatinine 1.01 Estim Creat Clear Calc 41.31 Est GFR (MDRD) Af Amer 68 Est GFR (MDRD) Non-Af 56 L BUN/Creatinine Ratio 20.8 H Glucose 159 H Calcium 9.1 POC Glucose 162 H 04/05/20 04/05/20 04/05/20 11:01 16:05 21:10 WBC RBC Hgb Hct MCV MCH MCHC RDW Std Deviation RDW Coeff of Gunnar Plt Count MPV Immature Gran % (Auto) Neut % (Auto) Lymph % (Auto) Bacon % (Auto) Eos % (Auto) Baso % (Auto) Absolute Neuts (auto) Absolute Lymphs (auto) Nucleated RBC % Sodium Potassium Chloride Carbon Dioxide Anion Gap BUN Creatinine Estim Creat Clear Calc Est GFR (MDRD) Af Amer Est GFR (MDRD) Non-Af BUN/Creatinine Ratio Glucose Calcium POC Glucose 195 H 259 H 159 H 04/06/20 04/06/20 04/06/20 06:22 11:05 16:17 WBC RBC Hgb Hct MCV MCH MCHC RDW Std Deviation RDW Coeff of Gunnar Plt Count MPV Immature Gran % (Auto) Neut % (Auto) Lymph % (Auto) Bacon % (Auto) Eos % (Auto) Baso % (Auto) Absolute Neuts (auto) Absolute Lymphs (auto) Nucleated RBC % Sodium Potassium Chloride Carbon Dioxide Anion Gap BUN Creatinine Estim Creat Clear Calc Est GFR (MDRD) Af Amer Est GFR (MDRD) Non-Af BUN/Creatinine Ratio Glucose Calcium POC Glucose 238 H 263 H 242 H 04/06/20 21:22 WBC RBC Hgb Hct MCV MCH MCHC RDW Std Deviation RDW Coeff of Gunnar Plt Count MPV Immature Gran % (Auto) Neut % (Auto) Lymph % (Auto) Bacon % (Auto) Eos % (Auto) Baso % (Auto) Absolute Neuts (auto) Absolute Lymphs (auto) Nucleated RBC % Sodium Potassium Chloride Carbon Dioxide Anion Gap BUN Creatinine Estim Creat Clear Calc Est GFR (MDRD) Af Amer Est GFR (MDRD) Non-Af BUN/Creatinine Ratio Glucose Calcium POC Glucose 244 H Operations: None Procedures: None Summary of Care Provided: The patient is a 80 year old Female with below past medical history hospitalized for progressive generalized weakness, encephalopathy, etiology unknown, admitted to TCU with debility, here for rehabilitation, strengthening, prior to disposition determination. [] Discharge to Senior Living Facility, intermediate level of care PT/OT. Patient Problems: Active and Suspected Problems (Last Reviewed 05/22/19 @ 15:31 by Tessy Osorio) Encephalopathy (Acute) Vitamin B12 deficiency (Acute) Otalgia of left ear (Acute) - Physical Exam Vitals/I&O's: Vital Signs Temp Pulse Resp BP Pulse Ox 98.2 F 89 16 120/53 L 94 04/06/20 14:24 04/06/20 20:16 04/06/20 13:59 04/06/20 17:07 04/06/20 20:16 Oxygen Flow Rate (L/min) 2 Oxygen Delivery Method Nasal Cannula Weight: 99.6 kg Body Mass Index (BMI) 36.5 Finger Stick Blood Glucose 155 Intake and Output for Last 24 Hours 04/04/20 04/05/20 04/06/20 23:59 23:59 23:59 Intake Total 480 / 480 240 / 240 Output Total 700 / 700 2300 / 2300 1400 / 1400 Balance -700 / -700 -1820 / -1820 -1160 / -1160 Laboratory Results 04/06/20 06:22: POC Glucose 238 H 04/06/20 11:05: POC Glucose 263 H 04/06/20 16:17: POC Glucose 242 H 04/06/20 21:22: POC Glucose 244 H Current Medications Acetaminophen (Tylenol) 1,000 mg PO Q6H PRN PRN PRN Reason: Pain Score 1-10/10 Last Admin: 04/05/20 01:55 Dose: 1,000 mg Documented by: Anastrozole (Arimidex) 1 mg PO DAILY [facility] Last Admin: 04/06/20 04:41 Dose: 1 mg Documented by: Aspirin (Ecotrin) 81 mg PO DAILY@0800 [facility] Last Admin: 08/17/20 08:32 Dose: Not Given Documented by: Atorvastatin Calcium (Lipitor) 40 mg PO QHS [facility] Last Admin: 04/06/20 20:27 Dose: 40 mg Documented by: Bisacodyl (Dulcolax) 10 mg RECTAL DAILY PRN PRN Reason: Constipation Calamine/Phenol (Calmoseptine Ointment) 1 applic TOPICAL 0600,2200 [facility]; Protocol Last Admin: 04/06/20 20:39 Dose: 1 applicatio Documented by: Cyanocobalamin (Vitamin B12) 1,000 mcg SC MOWEFR [facility] Last Admin: 04/06/20 08:36 Dose: 1,000 mcg Documented by: Furosemide (Lasix) 40 mg PO DAILY [facility] Last Admin: 04/06/20 04:41 Dose: 40 mg Documented by: Insulin Glargine (Lantus ([facility])) 35 units SC DAILY [facility] Last Admin: 04/06/20 08:31 Dose: Not Given Documented by: Insulin Human Lispro (Humalog Kwikpen ([facility])) 12 unit SC TIDAC [facility] Last Admin: 04/06/20 17:59 Dose: 12 units Documented by: Isosorbide Mononitrate (Imdur) 30 mg PO DAILY [facility] Last Admin: 04/06/20 04:42 Dose: 30 mg Documented by: Lactulose (Chronulac, Cephulac) 20 gm PO DAILY [facility] Last Admin: 04/06/20 04:40 Dose: 20 gm Documented by: Losartan Potassium (Cozaar) 25 mg PO DAILY [facility] Last Admin: 04/06/20 04:42 Dose: 25 mg Documented by: Melatonin (Melatonin) 6 mg PO QHS [facility] Last Admin: 04/06/20 20:27 Dose: 6 mg Documented by: Metoprolol Succinate (Toprol Xl (Beta Corin)) 25 mg PO DAILY [facility] Last Admin: 04/06/20 04:43 Dose: 25 mg Documented by: Multi-Ingredient Cream (Eucerin) 1 applic TOPICAL 0600,2200 [facility]; Protocol Nutritional Formula (Lactose Free) (Glucerna Shake) 120 ml PO 4X/DAY [facility] Last Admin: 04/06/20 20:31 Dose: 120 ml Documented by: Nystatin (Mycostatin Powder) 1 applic TOPICAL BID [facility]; Protocol Last Admin: 04/06/20 18:00 Dose: 1 applicatio Documented by: Ondansetron HCl (Zofran Odt) 4 mg PO Q6H PRN PRN PRN Reason: NAUSEA/VOMITING Last Admin: 04/06/20 04:28 Dose: 4 mg Documented by: Pantoprazole Sodium (Protonix) 40 mg PO DAILY [facility] Last Admin: 04/06/20 04:42 Dose: 40 mg Documented by: Polyethylene Glycol (Miralax) 17 gm PO BID [facility] Last Admin: 04/06/20 17:58 Dose: Not Given Documented by: Polysaccharide Iron Complex (Ferrex 150) 150 mg PO DAILYCM [facility] Last Admin: 04/06/20 08:33 Dose: Not Given Documented by: Senna/Docusate Sodium (Senokot-S, Clarisa-Colace) 1 tablet PO BID [facility] Last Admin: 04/06/20 17:59 Dose: 1 tablet Documented by: Tamsulosin HCl (Flomax) 0.4 mg PO DAILY@1730 [facility] Last Admin: 04/06/20 17:59 Dose: 0.4 mg Documented by: Tuberculin PPD (Tubersol, Aplisol, Ppd) 5 tu ID [id number] Stop: 04/12/20 10:01 Discharge Diet: No Restrictions Discharge Activity: Return to Normal Activity, May Shower, Use Walker Weight Bearing Status: Weight bearing as tolerated Call your doctor if you observe: Fever of 101 or Higher, Inability to urinate, Inability to have a bowel movement, Shortness of breath, Chest pain, Uncontrolled pain Home Medications: Medications to take at Discharge Anastrozole [Arimidex] 1 mg PO DAILY 03/02/20 Aspirin E.C. [Ecotrin] 81 mg PO DAILY@0800 03/02/20 Atorvastatin Calcium [Lipitor] 80 mg PO QHS 03/02/20 Insulin Detemir [Levemir Flextouch] 35 unit SQ DAILY 03/02/20 Insulin Lispro [Humalog KwikPen] 5 unit SQ TID 03/02/20 Isosorbide Mononitrate [Isosorbide Mononitrate ER] 30 mg PO DAILY 03/02/20 Losartan Potassium [Cozaar] 25 mg PO DAILY 03/02/20 Melatonin 6 mg PO QHS 03/02/20 Metoprolol Succinate [Toprol Xl] 25 mg PO DAILY 03/02/20 Ondansetron HCl [Zofran] 4 mg PO Q6H PRN PRN 03/02/20 Polyethylene Glycol 3350 17 gm PO BID 03/02/20 Furosemide [Lasix] 40 mg PO DAILY #0 03/06/20 Pantoprazole Sodium [Protonix] 40 mg PO BID 03/06/20 Tamsulosin HCl [Flomax] 0.4 mg PO DAILY@1730 03/06/20 Cyanocobalamin (Vitamin B-12) [Cyanocobalamin Injection] 1,000 mcg IJ MOWEFR 04/01/20 Iron Polysaccharide Complex [Ferrex 150] 150 mg PO DAILY 04/01/20 Lactulose [Chronulac] 20 gm PO DAILY 04/01/20 Nystatin 15 gm TP BID 04/01/20 Acetaminophen [Tylenol] 1,000 mg PO Q6H PRN PRN tablet 04/06/20 Bisacodyl [Dulcolax] 10 mg RECTAL DAILY PRN suppos. 04/06/20 Glucerna Shake 120 ml PO 4X/DAY liquid 04/06/20 Menthol/Lanolin/Calamine/Znox [Calmoseptine Ointment] 1 applic TOPICAL 0600,2200 tube 04/06/20 Mineral Oil/Petrolatum,White [Eucerin] 1 applic TOPICAL 0600,2200 jar 04/06/20 Senna/Docusate Sodium [Senokot-S] 1 tablet PO BID tablet 04/06/20 Primary Care Physician: Ab Escobar MD [Primary Care Provider] - Please follow up with your Primary Care Physician in: 1 week. Please Follow Up With: Arie Hendricks MD - progressive generalized weakness. When: As soon as possible. Disposition: Senior Living facility Minutes spent on discharge:: 35 Patient Condition:: Poor Medical Necessity - Tobacco Use Smoking Status: Never smoker Tobacco Use: Non-smoker, Cigarettes Meaningful Use Info Meaningful Use Diagnoses (Choose all that apply): None applicable
--- NOTE | 2020-04-06 22:11 | PCM.TXEXTCAR ---
- Diet 04/06/20 11:15 Diet: Vegetarian - ConsCHO - Olayinka Cont Food consistency:: Regular Liquid Consistency:: Regular/Thin Is pt able to select menu?: Yes How many daily calories?: 1800 calorie - Routine Orders/Code Status Suppository Type: Dulcolax 10mg Suppository Frequency: Daily PRN Code Status: DNRCC-A - No Intubation. - Wound(s) Left Upper arm Wound Type: tapeburn abrasion left posterior ankle Wound Type: Abrasion seond toe right toe Wound Type: Abrasion left 3rd toe Wound Type: Abrasion abdomen Wound Type: scratches - Therapies Weight Bearing: Weight bearing as tolerated Extremity Affected:: Bilateral Lower Physical Therapy: Eval and Treat Occupational Therapy: Eval and Treat - Problem/Diagnosis (1) Encephalopathy Status: Acute Current Visit: Yes (2) Vitamin B12 deficiency Status: Acute Current Visit: Yes (3) Body mass index (bmi) 36.0-36.9, adult Status: Chronic Current Visit: Yes (4) Nausea Status: Chronic Current Visit: Yes (5) Urinary retention Status: Chronic Current Visit: Yes (6) Insomnia Status: Chronic Current Visit: Yes (7) Iron deficiency anemia Status: Chronic Current Visit: Yes (8) GERD (gastroesophageal reflux disease) Status: Chronic Current Visit: Yes (9) Debility Status: Acute Current Visit: No (10) Coronary artery disease Status: Chronic Current Visit: No (11) Stroke Status: Chronic Current Visit: No (12) Breast cancer Status: Chronic Current Visit: No (13) HTN (hypertension) Status: Chronic Current Visit: No (14) HLD (hyperlipidemia) Status: Chronic Current Visit: No (15) Generalized weakness Status: Acute Current Visit: No (16) Diabetes Status: Chronic Current Visit: No (17) Anemia Status: Chronic Current Visit: No - Allergies/Procedures Done in Hospital Allergies/Adverse Reactions: Allergies amoxicillin [From Augmentin] Allergy (Verified 04/04/20 18:05) PT UNSURE OF REACTION clavulanic acid [From Augmentin] Allergy (Verified 04/04/20 18:05) PT UNSURE OF REACTION Iodinated Contrast Media [DYEE] Allergy (Verified 04/04/20 18:05) Anaphylaxis levofloxacin [From Levaquin] Allergy (Verified 04/04/20 18:05) Upset Stomach loratadine [From Claritin] Allergy (Verified 04/04/20 18:05) PT UNSURE OF REACTION hydrocodone bitartrate [From Vicodin] Adverse Reaction (Verified 04/04/20 18:05) Nausea/Vom/Diarrhea iodine Adverse Reaction (Verified 04/04/20 18:05) Nausea/Vom/Diarrhea - Type of Care/Length of Stay Estimated LOS: More Than 30 Days Type of Care Needed: Intermediate Rehab Potential: Poor Prognosis: Poor - Additional Orders/Day of Discharge Day of Discharge: 04/17/20 - Dietary and Speech Recommendations Dietitian Recommendations/Changes: Will order ONS at [facility] ([facility]) for increased nutrition if consumed - Follow Up Care Primary Care Physician: Ab Escobar MD [Primary Care Provider] - Please follow up with your Primary Care Physician in: 1 week. Please Follow Up With: Arie Hendricks MD - progressive generalized weakness. When: As soon as possible.
[2020-04-07 04:00] VITALS: BP 159/60; PULSE 95; RESP 18; TEMP 37.1; O2SAT 94
[2020-04-07] MEDS: Polyethylene Glycol 3350 17 GM PACKET PO ×2 (05:33→17:29)
[2020-04-07 05:34] VITALS: BP 159/60; PULSE 95
[2020-04-07] MEDS: Senna/Docusate Sodium 1 Tablet PO ×2 (05:34→17:29)
[2020-04-07] MEDS: Lactulose 20 GM/30 ML UDC PO (05:34)
[2020-04-07] MEDS: Losartan Potassium 25 MG Tablet PO (05:34)
[2020-04-07] MEDS: Isosorbide Mononitrate 30 MG Tablet PO (05:34)
[2020-04-07] MEDS: Anastrozole 1 MG Tablet PO (05:34)
[2020-04-07] MEDS: Metoprolol(XL)Succ 50 MG Tablet 25 MG PO (05:34)
[2020-04-07] MEDS: Glucerna Shake 120 ML LIQUID PO ×4 (05:34→21:30)
[2020-04-07] MEDS: Pantoprazole Sodium 40 MG Tablet PO (05:34)
[2020-04-07] MEDS: Furosemide 40 MG Tablet PO (05:34)
[2020-04-07] MEDS: Menthol/Lanolin/Calamine/Znox 113 GM Tube 1 APPLIC TOPICAL ×2 (05:40→21:33)
[2020-04-07] MEDS: Nystatin Powder 15gm Bottle 1 APPLIC TOPICAL ×2 (05:41→17:29)
[2020-04-07 06:26] LABS: Bedside Glucose 261 mg/dL (70-110)
[2020-04-07 06:36] VITALS: O2SAT 94
[2020-04-07] MEDS: Insulin Lispro 100 UNIT/ML INSULN.PEN 12 UNIT SC ×2 (08:13→11:49)
[2020-04-07] MEDS: Iron Polysaccharide Complex 150 MG CAPSULE PO (08:13)
[2020-04-07] MEDS: Aspirin E.C. 81 MG Tablet PO (08:13)
[2020-04-07 09:52] VITALS: PULSE 94; RESP 16; O2SAT 96
[2020-04-07 10:46] LABS: Bedside Glucose 344 mg/dL (70-110)
[2020-04-07 13:27] VITALS: BP 137/48; PULSE 95; RESP 16; TEMP 36.6; O2SAT 99
[2020-04-07 16:26] LABS: Bedside Glucose 345 mg/dL (70-110)
[2020-04-07] MEDS: Insulin Lispro 100 UNIT/ML INSULN.PEN 17 UNIT SC (17:28)
[2020-04-07] MEDS: Tamsulosin HCl 0.4 MG Capsule PO (17:29)
[2020-04-07] MEDS: Atorvastatin Calcium 40 MG Tablet PO (21:31)
[2020-04-07] MEDS: MELATONIN 3 MG TABLET 6 MG PO (21:31)
[2020-04-07 21:36] LABS: Bedside Glucose 250 mg/dL (70-110)
[2020-04-08] MEDS: Acetaminophen 500 MG Tablet 1000 MG PO ×2 (02:08→22:40)
[2020-04-08 05:19] VITALS: BP 152/65; PULSE 92; RESP 16; TEMP 36.7; O2SAT 97
[2020-04-08 05:21] VITALS: BP 152/65; PULSE 92
[2020-04-08] MEDS: Anastrozole 1 MG Tablet PO (05:21)
[2020-04-08] MEDS: Pantoprazole Sodium 40 MG Tablet PO (05:21)
[2020-04-08] MEDS: Senna/Docusate Sodium 1 Tablet PO ×2 (05:21→17:57)
[2020-04-08] MEDS: Metoprolol(XL)Succ 50 MG Tablet 25 MG PO (05:21)
[2020-04-08] MEDS: Losartan Potassium 25 MG Tablet PO (05:21)
[2020-04-08] MEDS: Glucerna Shake 120 ML LIQUID PO ×4 (05:21→21:11)
[2020-04-08] MEDS: Polyethylene Glycol 3350 17 GM PACKET PO ×2 (05:21→17:56)
[2020-04-08] MEDS: Furosemide 40 MG Tablet PO (05:21)
[2020-04-08] MEDS: Isosorbide Mononitrate 30 MG Tablet PO (05:21)
[2020-04-08] MEDS: Lactulose 20 GM/30 ML UDC PO (05:21)
[2020-04-08] MEDS: Menthol/Lanolin/Calamine/Znox 113 GM Tube 1 APPLIC TOPICAL ×2 (05:24→16:55)
[2020-04-08] MEDS: Nystatin Powder 15gm Bottle 1 APPLIC TOPICAL ×2 (05:31→16:55)
[2020-04-08 06:15] LABS: Bedside Glucose 312 mg/dL (70-110)
[2020-04-08] MEDS: Iron Polysaccharide Complex 150 MG CAPSULE PO (08:32)
[2020-04-08] MEDS: Aspirin E.C. 81 MG Tablet PO (08:32)
[2020-04-08] MEDS: Insulin Lispro 100 UNIT/ML INSULN.PEN 20 UNIT SC ×3 (08:33→18:02)
--- NOTE | 2020-04-08 10:57 | CASEMGMT ---
Social Work IDT met with patient and son via conference call for care plan meeting. Discussed patient's progress in therapy. Pt is dependent/max x2 for bed mobility, sit to stands, bathing/dressing, total assist for toileting, max for grooming, maura for transfers. Pt is able to stand for 15 seconds and tolerating sitting in chair for about 15 minutes before fatigues and leans. Pt enjoys listening to [email or web address] music and visits from the voting machine repairer. Pt is carb controlled 1800 calorie, vegetarian diet, intake 50-100%, receiving Glucerna. Explained insurance approved pt until DC 04/17. Son and pt agreeable to refer to [facility] and [facility]. SW did discuss goals comfort vs therapy - pt denies hospice and would like to keep working with therapy. Plan: Pt to transfer to SNF nonskilled, part B therapies 04/17 ROD Rivera
[2020-04-08 11:15] LABS: Bedside Glucose 332 mg/dL (70-110)
[2020-04-08] MEDS: Cyanocobalamin (B12) 1,000 MCG/ML Vial 1000 MCG SC (12:06)
[2020-04-08 15:00] VITALS: BP 134/70; PULSE 88; RESP 20; TEMP 36.6; O2SAT 91
[2020-04-08] MEDS: Tamsulosin HCl 0.4 MG Capsule PO (16:55)
[2020-04-08 17:00] LABS: Bedside Glucose 239 mg/dL (70-110)
[2020-04-08] MEDS: MELATONIN 3 MG TABLET 6 MG PO (21:11)
[2020-04-08] MEDS: Atorvastatin Calcium 40 MG Tablet PO (21:11)
[2020-04-08 21:40] LABS: Bedside Glucose 190 mg/dL (70-110)
[2020-04-09] MEDS: Anastrozole 1 MG Tablet PO (05:09)
[2020-04-09] MEDS: Senna/Docusate Sodium 1 Tablet PO ×2 (05:09→17:35)
[2020-04-09] MEDS: Lactulose 20 GM/30 ML UDC PO (05:09)
[2020-04-09] MEDS: Polyethylene Glycol 3350 17 GM PACKET PO ×2 (05:09→17:36)
[2020-04-09 05:10] VITALS: BP 146/53; PULSE 92
[2020-04-09] MEDS: Glucerna Shake 120 ML LIQUID PO ×4 (05:10→20:44)
[2020-04-09] MEDS: Furosemide 40 MG Tablet PO (05:10)
[2020-04-09] MEDS: Isosorbide Mononitrate 30 MG Tablet PO (05:10)
[2020-04-09] MEDS: Metoprolol(XL)Succ 50 MG Tablet 25 MG PO (05:10)
[2020-04-09] MEDS: Pantoprazole Sodium 40 MG Tablet PO (05:10)
[2020-04-09] MEDS: Losartan Potassium 25 MG Tablet PO (05:10)
[2020-04-09] MEDS: Menthol/Lanolin/Calamine/Znox 113 GM Tube 1 APPLIC TOPICAL ×2 (05:11→20:44)
[2020-04-09] MEDS: Nystatin Powder 15gm Bottle 1 APPLIC TOPICAL ×2 (05:19→17:37)
[2020-04-09 05:20] VITALS: RESP 18; TEMP 36.6; O2SAT 94
[2020-04-09 06:35] LABS: Bedside Glucose 228 mg/dL (70-110)
[2020-04-09] MEDS: Iron Polysaccharide Complex 150 MG CAPSULE PO (07:59)
[2020-04-09] MEDS: Aspirin E.C. 81 MG Tablet PO (07:59)
[2020-04-09] MEDS: Insulin Lispro 100 UNIT/ML INSULN.PEN 20 UNIT SC ×2 (07:59→12:00)
[2020-04-09 09:18] VITALS: O2SAT 95
--- NOTE | 2020-04-09 10:18 | MDS.RN ---
Pain interview for KESHAV 04/11/20 completed.
[2020-04-09 10:45] LABS: Bedside Glucose 296 mg/dL (70-110)
[2020-04-09] MEDS: Acetaminophen 500 MG Tablet 1000 MG PO ×2 (10:51→20:47)
--- NOTE | 2020-04-09 12:24 | NURSING ---
SPOKE WITH R' SON FOR DAILY UPDATE.
[2020-04-09 13:34] VITALS: BP 101/50; PULSE 72; RESP 20; TEMP 36.6; O2SAT 99
--- NOTE | 2020-04-09 14:35 | CASEMGMT ---
Social Work [facility] Harden[facility] does not have availability. [facility] can accept pt. Spoke with pt's son and son is agreeable to [facility]. Notified [facility]. Left a message with S to follow up on Medicaid application. Schedule cot transport with [facility] for 04/17 at 11 am. Plan: DC to [facility] nonskilled with part B therapies 04/17 ROD RiveraW
[2020-04-09 16:56] LABS: Bedside Glucose 387 mg/dL (70-110)
--- NOTE | 2020-04-09 17:19 | NURSING ---
N.O. RECEIVED FROM DR. BRENNER FOR HYTONE TO RASH. ALSO, NOTIFIED HIM OF INCREASED BS. INCREASED INSULINS.
[2020-04-09] MEDS: Tamsulosin HCl 0.4 MG Capsule PO (17:35)
[2020-04-09] MEDS: Insulin Lispro 100 UNIT/ML INSULN.PEN 26 UNIT SC (17:36)
[2020-04-09] MEDS: Hydrocortisone 2.5% Crm 1 APPLIC TOPICAL (17:55)
[2020-04-09] MEDS: Atorvastatin Calcium 40 MG Tablet PO (20:44)
[2020-04-09] MEDS: MELATONIN 3 MG TABLET 6 MG PO (20:44)
[2020-04-09 22:06] LABS: Bedside Glucose 322 mg/dL (70-110)
[2020-04-10] MEDS: Acetaminophen 500 MG Tablet 1000 MG PO ×2 (03:00→20:08)
[2020-04-10] MEDS: Polyethylene Glycol 3350 17 GM PACKET PO ×2 (06:15→17:18)
[2020-04-10 06:16] VITALS: BP 154/76; PULSE 69
[2020-04-10] MEDS: Lactulose 20 GM/30 ML UDC PO (06:16)
[2020-04-10] MEDS: Metoprolol(XL)Succ 50 MG Tablet 25 MG PO (06:16)
[2020-04-10] MEDS: Furosemide 40 MG Tablet PO (06:16)
[2020-04-10] MEDS: Anastrozole 1 MG Tablet PO (06:16)
[2020-04-10] MEDS: Isosorbide Mononitrate 30 MG Tablet PO (06:16)
[2020-04-10] MEDS: Pantoprazole Sodium 40 MG Tablet PO (06:16)
[2020-04-10] MEDS: Senna/Docusate Sodium 1 Tablet PO ×2 (06:16→17:18)
[2020-04-10] MEDS: Losartan Potassium 25 MG Tablet PO (06:16)
[2020-04-10] MEDS: Glucerna Shake 120 ML LIQUID PO ×4 (06:20→20:08)
[2020-04-10] MEDS: Hydrocortisone 2.5% Crm 1 APPLIC TOPICAL ×3 (06:20→18:20)
[2020-04-10] MEDS: Menthol/Lanolin/Calamine/Znox 113 GM Tube 1 APPLIC TOPICAL ×2 (06:25→20:12)
[2020-04-10] MEDS: Nystatin Powder 15gm Bottle 1 APPLIC TOPICAL ×2 (06:26→17:18)
[2020-04-10 06:30] LABS: Bedside Glucose 270 mg/dL (70-110)
[2020-04-10 06:31] VITALS: RESP 18; TEMP 36.9; O2SAT 97
[2020-04-10 06:48] VITALS: O2SAT 95
[2020-04-10] MEDS: traMADol 50 MG Tablet PO ×2 (08:44→18:15)
[2020-04-10] MEDS: Insulin Lispro 100 UNIT/ML INSULN.PEN 26 UNIT SC ×2 (08:44→12:15)
[2020-04-10] MEDS: Aspirin E.C. 81 MG Tablet PO (08:44)
[2020-04-10] MEDS: Iron Polysaccharide Complex 150 MG CAPSULE PO (08:45)
--- NOTE | 2020-04-10 08:57 | CASEMGMT ---
Social Work BIMS and PHQ-9 completed for MDS assessment. Millie Mann, MECHANIC FOREMAN MEASUREMENT AND SENSING TECHNICIAN
[2020-04-10] MEDS: Cyanocobalamin (B12) 1,000 MCG/ML Vial 1000 MCG SC (10:56)
[2020-04-10 11:30] LABS: Bedside Glucose 380 mg/dL (70-110)
[2020-04-10 16:08] LABS: Albumin 2.4 g/dL (2.9-4.4); Alpha-1-Globulins 0.3 g/dL (0.0-0.4); Gamma Globulin 0.8 g/dL (0.4-1.8); Immunoglobulin A 348 mg/dL (64-422); Immunoglobulin G 833 mg/dL (586-1602); Immunoglobulin M 100 mg/dL (26-217); PROEL- TOTAL PROTEIN 5.5 g/dL (6.0-8.5)
[2020-04-10 16:50] LABS: Bedside Glucose 306 mg/dL (70-110)
[2020-04-10] MEDS: Tamsulosin HCl 0.4 MG Capsule PO (17:18)
[2020-04-10 18:00] VITALS: BP 126/58; PULSE 95; RESP 20; TEMP 36.7; O2SAT 96
[2020-04-10] MEDS: Insulin Lispro 100 UNIT/ML INSULN.PEN 33 UNIT SC (18:16)
[2020-04-10] MEDS: Atorvastatin Calcium 40 MG Tablet PO (20:09)
[2020-04-10] MEDS: MELATONIN 3 MG TABLET 6 MG PO (20:09)
[2020-04-10 21:45] LABS: Bedside Glucose 209 mg/dL (70-110)
[2020-04-11 04:48] VITALS: BP 113/56; PULSE 92; RESP 18; TEMP 36.6; O2SAT 97
[2020-04-11] MEDS: Glucerna Shake 120 ML LIQUID PO ×4 (04:49→21:43)
[2020-04-11] MEDS: Nystatin Powder 15gm Bottle 1 APPLIC TOPICAL ×2 (04:49→16:48)
[2020-04-11] MEDS: traMADol 50 MG Tablet PO ×2 (04:51→13:51)
[2020-04-11 04:52] VITALS: BP 113/25; PULSE 92
[2020-04-11] MEDS: Metoprolol(XL)Succ 50 MG Tablet 25 MG PO (04:52)
[2020-04-11] MEDS: Lactulose 20 GM/30 ML UDC PO (04:52)
[2020-04-11] MEDS: Polyethylene Glycol 3350 17 GM PACKET PO ×2 (04:52→16:48)
[2020-04-11] MEDS: Pantoprazole Sodium 40 MG Tablet PO (04:52)
[2020-04-11] MEDS: Furosemide 40 MG Tablet PO (04:53)
[2020-04-11] MEDS: Isosorbide Mononitrate 30 MG Tablet PO (04:53)
[2020-04-11] MEDS: Losartan Potassium 25 MG Tablet PO (04:53)
[2020-04-11] MEDS: Senna/Docusate Sodium 1 Tablet PO ×2 (04:54→16:48)
[2020-04-11] MEDS: Anastrozole 1 MG Tablet PO (04:54)
[2020-04-11] MEDS: Menthol/Lanolin/Calamine/Znox 113 GM Tube 1 APPLIC TOPICAL ×2 (05:00→21:43)
[2020-04-11] MEDS: Hydrocortisone 2.5% Crm 1 APPLIC TOPICAL ×2 (05:00→21:56)
[2020-04-11 06:30] LABS: Bedside Glucose 259 mg/dL (70-110)
--- NOTE | 2020-04-11 07:37 | NURSING ---
Patient continues to have a rash. Rash is on back, under breasts, under folds, and in groin area. Dr. Kaur notified of this, new orders given.
[2020-04-11] MEDS: Insulin Lispro 100 UNIT/ML INSULN.PEN 33 UNIT SC ×2 (08:55→12:13)
[2020-04-11] MEDS: Iron Polysaccharide Complex 150 MG CAPSULE PO (08:57)
[2020-04-11] MEDS: Acetaminophen 500 MG Tablet 1000 MG PO (08:57)
[2020-04-11] MEDS: Aspirin E.C. 81 MG Tablet PO (08:57)
[2020-04-11] MEDS: MethylPREDNISolone DosePak 4 MG BOX PO ×4 (09:07→21:47)
[2020-04-11 10:51] LABS: Bedside Glucose 226 mg/dL (70-110)
[2020-04-11] MEDS: Ondansetron ODT 4 MG Tablet PO (12:18)
[2020-04-11 12:53] VITALS: PULSE 70; RESP 20; O2SAT 96
[2020-04-11] MEDS: Tamsulosin HCl 0.4 MG Capsule PO (16:17)
[2020-04-11 16:31] LABS: Bedside Glucose 65 mg/dL (70-110)
[2020-04-11 17:24] VITALS: BP 126/54; PULSE 70; RESP 20; TEMP 36.7; O2SAT 96
[2020-04-11 21:36] LABS: Bedside Glucose 193 mg/dL (70-110)
[2020-04-11] MEDS: Atorvastatin Calcium 40 MG Tablet PO (21:44)
[2020-04-11] MEDS: MELATONIN 3 MG TABLET 6 MG PO (21:44)
[2020-04-12] MEDS: Glucerna Shake 120 ML LIQUID PO ×4 (06:02→21:40)
[2020-04-12] MEDS: Senna/Docusate Sodium 1 Tablet PO ×2 (06:03→17:26)
[2020-04-12] MEDS: Polyethylene Glycol 3350 17 GM PACKET PO ×2 (06:03→17:26)
[2020-04-12] MEDS: Pantoprazole Sodium 40 MG Tablet PO (06:03)
[2020-04-12 06:04] VITALS: BP 138/65; PULSE 90
[2020-04-12] MEDS: Losartan Potassium 25 MG Tablet PO (06:04)
[2020-04-12] MEDS: Isosorbide Mononitrate 30 MG Tablet PO (06:04)
[2020-04-12] MEDS: Lactulose 20 GM/30 ML UDC PO (06:04)
[2020-04-12] MEDS: Furosemide 40 MG Tablet PO (06:04)
[2020-04-12] MEDS: Metoprolol(XL)Succ 50 MG Tablet 25 MG PO (06:04)
[2020-04-12] MEDS: Anastrozole 1 MG Tablet PO (06:04)
[2020-04-12] MEDS: Menthol/Lanolin/Calamine/Znox 113 GM Tube 1 APPLIC TOPICAL ×2 (06:07→21:44)
[2020-04-12] MEDS: Nystatin Powder 15gm Bottle 1 APPLIC TOPICAL ×2 (06:09→17:27)
[2020-04-12 06:10] VITALS: BP 138/65; PULSE 90; RESP 20; TEMP 36.8; O2SAT 96
[2020-04-12 06:15] LABS: Bedside Glucose 260 mg/dL (70-110)
[2020-04-12 07:55] VITALS: O2SAT 96
[2020-04-12] MEDS: Insulin Lispro 100 UNIT/ML INSULN.PEN 33 UNIT SC (08:19)
[2020-04-12] MEDS: MethylPREDNISolone DosePak 4 MG BOX PO ×4 (08:20→21:41)
[2020-04-12] MEDS: Iron Polysaccharide Complex 150 MG CAPSULE PO (08:20)
[2020-04-12] MEDS: Aspirin E.C. 81 MG Tablet PO (08:20)
--- NOTE | 2020-04-12 09:09 | NURSING ---
pt continues to use call light excessively. Staff has continually repositioned pt and provided for her needs. This nurse explained to the pt, that while we are happy to assist her in any way that we can, we also need to provide care for other patients. Will continue to monitor.
[2020-04-12 10:56] LABS: Bedside Glucose 289 mg/dL (70-110)
--- NOTE | 2020-04-12 11:14 | NURSING ---
Resident cotton weigher light multiple times. Staff in to assess needs, reposition, food and fluids given. Resident continues to use call light even after needs are met.
[2020-04-12] MEDS: Insulin Lispro 100 UNIT/ML INSULN.PEN 30 UNIT SC ×2 (12:00→18:03)
[2020-04-12 13:05] VITALS: BP 124/62; PULSE 93; RESP 20; TEMP 36.7; O2SAT 95
[2020-04-12 16:46] LABS: Bedside Glucose 294 mg/dL (70-110)
[2020-04-12] MEDS: Tamsulosin HCl 0.4 MG Capsule PO (17:26)
[2020-04-12] MEDS: MELATONIN 3 MG TABLET 6 MG PO (21:40)
[2020-04-12] MEDS: Atorvastatin Calcium 40 MG Tablet PO (21:41)
[2020-04-12 21:46] LABS: Bedside Glucose 234 mg/dL (70-110)
[2020-04-12] MEDS: Hydrocortisone 2.5% Crm 1 APPLIC TOPICAL (21:49)
[2020-04-13] MEDS: Glucerna Shake 120 ML LIQUID PO ×3 (05:35→21:20)
[2020-04-13] MEDS: Nystatin Powder 15gm Bottle 1 APPLIC TOPICAL ×2 (05:36→18:05)
[2020-04-13] MEDS: Menthol/Lanolin/Calamine/Znox 113 GM Tube 1 APPLIC TOPICAL ×2 (05:36→21:25)
[2020-04-13] MEDS: Polyethylene Glycol 3350 17 GM PACKET PO ×2 (05:37→18:05)
[2020-04-13 05:38] VITALS: BP 153/61; PULSE 70
[2020-04-13] MEDS: Metoprolol(XL)Succ 50 MG Tablet 25 MG PO (05:38)
[2020-04-13] MEDS: Senna/Docusate Sodium 1 Tablet PO ×2 (05:38→18:05)
[2020-04-13] MEDS: Pantoprazole Sodium 40 MG Tablet PO (05:38)
[2020-04-13] MEDS: Furosemide 40 MG Tablet PO (05:39)
[2020-04-13] MEDS: Isosorbide Mononitrate 30 MG Tablet PO (05:39)
[2020-04-13] MEDS: Losartan Potassium 25 MG Tablet PO (05:39)
[2020-04-13] MEDS: Anastrozole 1 MG Tablet PO (05:40)
[2020-04-13] MEDS: Lactulose 20 GM/30 ML UDC PO (05:40)
[2020-04-13 05:43] VITALS: BP 153/61; PULSE 70; RESP 18; TEMP 36.1; O2SAT 96
[2020-04-13 05:51] LABS: Absolute Lymphocyte Count 1.33 X10^3/uL (0.83-4.51); Absolute Neutrophil Count 9.4 X10^3/uL (2.0-7.7); Basophil# 0.04 X10^3/uL; Basophil% 0.3 % (0-1); Eosinophil# 0.02 X10^3/uL; Eosinophils% 0.2 % (0-5); Hematocrit 32.4 % (37-47); Hemoglobin 10.3 g/dL (12.0-15.0); Lymphocyte # 1.33 X10^3/ul (4.0); Lymphocyte % 11.4 % (19-41); Mean Corp Hgb Conc 31.8 g/dL (32-36); Mean Corpuscular Hgb 30.3 pg (27.0-32.0); Mean Corpuscular Volume 95.3 fL (81-99); Mean Platelet Vol. 10.2 fl (6.2-12.0); Monocyte# 0.78 X10^3/uL; Monocyte% 6.7 % (0-10); NRBC Flagged by Analyzer 0 % (0-5); Neutrophil % 80.4 % (47-70); Platelet Count 271 K/mm3 (150-450); RBC Distribution Width SD 52.7 fl (35.1-43.9); White Blood Count 11.7 K/mm3 (4.4-11.0)
[2020-04-13 06:06] LABS: Anion Gap 3 (5-15); BUN 23 mg/dL (7-18); BUN/Creat Ratio 19.2 RATIO (10-20); Calcium,Total 9.1 mg/dL (8.5-10.1); Chloride 99 mmol/L (98-107); EST Glomerular Filtration Rate 46 mL/min (>60); Est Glom Filt Rate - Afr Amer 56 mL/min (>60); Estimated Creatinine Clearance 34.77 ml/min; Glucose 189 mg/dL (74-106); Potassium 4.7 mmol/L (3.5-5.1); Sodium Level 139 mmol/L (136-145)
[2020-04-13 06:21] LABS: Bedside Glucose 182 mg/dL (70-110)
[2020-04-13] MEDS: traMADol 50 MG Tablet PO ×2 (06:40→21:32)
[2020-04-13] MEDS: Insulin Lispro 100 UNIT/ML INSULN.PEN 30 UNIT SC ×3 (08:27→18:03)
[2020-04-13] MEDS: Aspirin E.C. 81 MG Tablet PO (08:28)
[2020-04-13] MEDS: Iron Polysaccharide Complex 150 MG CAPSULE PO (08:28)
[2020-04-13] MEDS: MethylPREDNISolone DosePak 4 MG BOX PO ×4 (08:29→21:22)
[2020-04-13] MEDS: Cyanocobalamin (B12) 1,000 MCG/ML Vial 1000 MCG SC (10:00)
[2020-04-13 11:20] LABS: Bedside Glucose 241 mg/dL (70-110)
--- NOTE | 2020-04-13 11:28 | CASEMGMT ---
Social Work Received Medicaid Pending #[id number] ROD Rivera BLOCK INSPECTOR
[2020-04-13 14:14] VITALS: BP 116/57; PULSE 95; RESP 18; TEMP 36.3; O2SAT 96
[2020-04-13 16:55] LABS: Bedside Glucose 196 mg/dL (70-110)
[2020-04-13] MEDS: Tamsulosin HCl 0.4 MG Capsule PO (18:06)
[2020-04-13] MEDS: MELATONIN 3 MG TABLET 6 MG PO (21:22)
[2020-04-13] MEDS: Atorvastatin Calcium 40 MG Tablet PO (21:22)
[2020-04-13 21:31] LABS: Bedside Glucose 117 mg/dL (70-110)
[2020-04-14 04:38] VITALS: BP 135/51; PULSE 65; RESP 18; TEMP 36.7; O2SAT 95
[2020-04-14 04:41] VITALS: BP 135/51; PULSE 65
[2020-04-14] MEDS: Metoprolol(XL)Succ 50 MG Tablet 25 MG PO (04:41)
[2020-04-14] MEDS: Senna/Docusate Sodium 1 Tablet PO ×2 (04:41→18:25)
[2020-04-14] MEDS: Anastrozole 1 MG Tablet PO (04:41)
[2020-04-14] MEDS: Lactulose 20 GM/30 ML UDC PO (04:41)
[2020-04-14] MEDS: Glucerna Shake 120 ML LIQUID PO ×4 (04:41→21:13)
[2020-04-14] MEDS: Polyethylene Glycol 3350 17 GM PACKET PO ×2 (04:42→18:26)
[2020-04-14] MEDS: Isosorbide Mononitrate 30 MG Tablet PO (04:42)
[2020-04-14] MEDS: Pantoprazole Sodium 40 MG Tablet PO (04:42)
[2020-04-14] MEDS: Losartan Potassium 25 MG Tablet PO (04:42)
[2020-04-14] MEDS: Furosemide 40 MG Tablet PO (04:42)
[2020-04-14] MEDS: Nystatin Powder 15gm Bottle 1 APPLIC TOPICAL ×2 (04:43→18:26)
[2020-04-14] MEDS: Menthol/Lanolin/Calamine/Znox 113 GM Tube 1 APPLIC TOPICAL ×2 (04:43→21:22)
[2020-04-14 07:55] VITALS: O2SAT 95
[2020-04-14] MEDS: Aspirin E.C. 81 MG Tablet PO (08:09)
[2020-04-14] MEDS: Insulin Lispro 100 UNIT/ML INSULN.PEN 30 UNIT SC ×3 (08:09→18:25)
[2020-04-14] MEDS: Iron Polysaccharide Complex 150 MG CAPSULE PO (08:09)
[2020-04-14] MEDS: MethylPREDNISolone DosePak 4 MG BOX PO ×3 (08:11→21:19)
[2020-04-14 09:10] LABS: Bedside Glucose 190 mg/dL (70-110)
[2020-04-14 10:50] LABS: Bedside Glucose 225 mg/dL (70-110)
--- NOTE | 2020-04-14 10:55 | MDS.RN ---
Information for the mds was obtained from review of the clinical record, interview of resident, staff, and direct observation of resident's care.
[2020-04-14 13:37] VITALS: BP 136/57; PULSE 97; RESP 16; TEMP 37.1; O2SAT 95
[2020-04-14 17:01] LABS: Bedside Glucose 134 mg/dL (70-110)
[2020-04-14] MEDS: Tamsulosin HCl 0.4 MG Capsule PO (18:26)
[2020-04-14] MEDS: traMADol 50 MG Tablet PO (18:32)
[2020-04-14] MEDS: Atorvastatin Calcium 40 MG Tablet PO (21:14)
[2020-04-14] MEDS: MELATONIN 3 MG TABLET 6 MG PO (21:14)
[2020-04-14 21:31] LABS: Bedside Glucose 151 mg/dL (70-110)
[2020-04-15 05:48] VITALS: BP 143/76; PULSE 94; RESP 18; TEMP 36.8; O2SAT 97
[2020-04-15] MEDS: Lactulose 20 GM/30 ML UDC PO (05:49)
[2020-04-15] MEDS: Glucerna Shake 120 ML LIQUID PO ×4 (05:49→22:15)
[2020-04-15] MEDS: Furosemide 40 MG Tablet PO (05:49)
[2020-04-15] MEDS: Polyethylene Glycol 3350 17 GM PACKET PO ×2 (05:49→17:33)
[2020-04-15 05:50] VITALS: BP 143/76; PULSE 94
[2020-04-15] MEDS: Anastrozole 1 MG Tablet PO (05:50)
[2020-04-15] MEDS: Losartan Potassium 25 MG Tablet PO (05:50)
[2020-04-15] MEDS: Isosorbide Mononitrate 30 MG Tablet PO (05:50)
[2020-04-15] MEDS: Pantoprazole Sodium 40 MG Tablet PO (05:50)
[2020-04-15] MEDS: Senna/Docusate Sodium 1 Tablet PO ×2 (05:50→17:33)
[2020-04-15] MEDS: Metoprolol(XL)Succ 50 MG Tablet 25 MG PO (05:50)
[2020-04-15] MEDS: Menthol/Lanolin/Calamine/Znox 113 GM Tube 1 APPLIC TOPICAL ×2 (05:51→22:18)
[2020-04-15] MEDS: Nystatin Powder 15gm Bottle 1 APPLIC TOPICAL ×2 (05:51→17:33)
[2020-04-15 06:26] LABS: Bedside Glucose 113 mg/dL (70-110)
[2020-04-15 06:55] VITALS: O2SAT 95
[2020-04-15] MEDS: MethylPREDNISolone DosePak 4 MG BOX PO ×2 (08:41→22:15)
[2020-04-15] MEDS: Iron Polysaccharide Complex 150 MG CAPSULE PO (08:42)
[2020-04-15] MEDS: Aspirin E.C. 81 MG Tablet PO (08:42)
[2020-04-15] MEDS: traMADol 50 MG Tablet PO ×2 (08:42→22:15)
[2020-04-15] MEDS: Insulin Lispro 100 UNIT/ML INSULN.PEN 15 UNIT SC ×3 (09:23→17:59)
[2020-04-15 11:25] LABS: Bedside Glucose 210 mg/dL (70-110)
[2020-04-15] MEDS: Cyanocobalamin (B12) 1,000 MCG/ML Vial 1000 MCG SC (12:15)
[2020-04-15 13:05] VITALS: BP 112/58; PULSE 96; RESP 20; TEMP 36.8; O2SAT 98
[2020-04-15 13:07] VITALS: PULSE 96; RESP 20
[2020-04-15] MEDS: Tamsulosin HCl 0.4 MG Capsule PO (16:11)
--- NOTE | 2020-04-15 16:42 | CASEMGMT ---
Social Work Facilitated phone call between pt and son. Pt appreciative. Millie Mann, TOBACCO SHAKER ESCROW OFFICER
[2020-04-15 16:46] LABS: Bedside Glucose 177 mg/dL (70-110)
[2020-04-15] MEDS: MELATONIN 3 MG TABLET 6 MG PO (22:15)
[2020-04-15] MEDS: Atorvastatin Calcium 40 MG Tablet PO (22:15)
[2020-04-15 22:21] LABS: Bedside Glucose 127 mg/dL (70-110)
[2020-04-16] MEDS: Lactulose 20 GM/30 ML UDC PO (05:08)
[2020-04-16] MEDS: Isosorbide Mononitrate 30 MG Tablet PO (05:08)
[2020-04-16] MEDS: Anastrozole 1 MG Tablet PO (05:08)
[2020-04-16] MEDS: Pantoprazole Sodium 40 MG Tablet PO (05:08)
[2020-04-16] MEDS: Polyethylene Glycol 3350 17 GM PACKET PO ×2 (05:08→16:56)
[2020-04-16] MEDS: Senna/Docusate Sodium 1 Tablet PO (05:08)
[2020-04-16] MEDS: Losartan Potassium 25 MG Tablet PO (05:08)
[2020-04-16] MEDS: Glucerna Shake 120 ML LIQUID PO ×4 (05:08→21:21)
[2020-04-16 05:09] VITALS: BP 115/69; PULSE 67
[2020-04-16] MEDS: Metoprolol(XL)Succ 50 MG Tablet 25 MG PO (05:09)
[2020-04-16] MEDS: Furosemide 40 MG Tablet PO (05:10)
[2020-04-16] MEDS: Menthol/Lanolin/Calamine/Znox 113 GM Tube 1 APPLIC TOPICAL ×2 (05:16→21:12)
[2020-04-16] MEDS: Nystatin Powder 15gm Bottle 1 APPLIC TOPICAL ×2 (05:16→16:56)
[2020-04-16 05:18] VITALS: RESP 17; TEMP 36.4; O2SAT 97
[2020-04-16 07:01] LABS: Bedside Glucose 137 mg/dL (70-110)
[2020-04-16 08:10] VITALS: O2SAT 96
[2020-04-16] MEDS: Aspirin E.C. 81 MG Tablet PO (08:57)
[2020-04-16] MEDS: Iron Polysaccharide Complex 150 MG CAPSULE PO (08:57)
[2020-04-16] MEDS: MethylPREDNISolone DosePak 4 MG BOX PO (08:57)
[2020-04-16 10:00] VITALS: RESP 18; O2SAT 94
[2020-04-16 10:51] LABS: Bedside Glucose 264 mg/dL (70-110)
--- NOTE | 2020-04-16 11:47 | MDS.RN ---
Pain interview for edgar 04/17/20 completed.
[2020-04-16] MEDS: Insulin Lispro 100 UNIT/ML INSULN.PEN 10 UNIT SC ×2 (12:08→16:54)
[2020-04-16 15:15] VITALS: BP 98/53; PULSE 71; RESP 16; TEMP 35.9; O2SAT 98
[2020-04-16 16:36] LABS: Bedside Glucose 187 mg/dL (70-110)
[2020-04-16] MEDS: Tamsulosin HCl 0.4 MG Capsule PO (16:55)
[2020-04-16 21:16] LABS: Bedside Glucose 152 mg/dL (70-110)
[2020-04-16] MEDS: Atorvastatin Calcium 40 MG Tablet PO (21:16)
[2020-04-16] MEDS: MELATONIN 3 MG TABLET 6 MG PO (21:16)
[2020-04-16] MEDS: traMADol 50 MG Tablet PO (21:21)
[2020-04-17 01:31] LABS: Bedside Glucose 176 mg/dL (70-110)
[2020-04-17 03:59] VITALS: BP 146/66; PULSE 69; RESP 16; TEMP 36.7; O2SAT 96
[2020-04-17 06:21] LABS: Bedside Glucose 108 mg/dL (70-110)
[2020-04-17 06:35] VITALS: BP 146/66; PULSE 69
[2020-04-17] MEDS: Pantoprazole Sodium 40 MG Tablet PO (06:35)
[2020-04-17] MEDS: Senna/Docusate Sodium 1 Tablet PO (06:35)
[2020-04-17] MEDS: Isosorbide Mononitrate 30 MG Tablet PO (06:35)
[2020-04-17] MEDS: Glucerna Shake 120 ML LIQUID PO (06:35)
[2020-04-17] MEDS: Losartan Potassium 25 MG Tablet PO (06:35)
[2020-04-17] MEDS: Metoprolol(XL)Succ 25 MG Tablet PO (06:35)
[2020-04-17] MEDS: Polyethylene Glycol 3350 17 GM PACKET PO (06:35)
[2020-04-17] MEDS: Furosemide 40 MG Tablet PO (06:35)
[2020-04-17] MEDS: Lactulose 20 GM/30 ML UDC PO (06:36)
[2020-04-17] MEDS: Anastrozole 1 MG Tablet PO (06:36)
[2020-04-17] MEDS: Menthol/Lanolin/Calamine/Znox 113 GM Tube 1 APPLIC TOPICAL (06:40)
[2020-04-17] MEDS: Nystatin Powder 15gm Bottle 1 APPLIC TOPICAL (06:41)
[2020-04-17 07:00] VITALS: O2SAT 95
[2020-04-17] MEDS: Insulin Lispro 100 UNIT/ML INSULN.PEN 7 UNIT SC (08:14)
[2020-04-17] MEDS: Iron Polysaccharide Complex 150 MG CAPSULE PO (08:15)
[2020-04-17] MEDS: Aspirin E.C. 81 MG Tablet PO (08:15)
[2020-04-17] MEDS: Cyanocobalamin (B12) 1,000 MCG/ML Vial 1000 MCG SC (09:27)
[2020-04-17 09:39] VITALS: PULSE 89; RESP 16; O2SAT 97
[2020-04-17 11:05] VITALS: BP 122/57; PULSE 83; RESP 16; TEMP 36.3; O2SAT 97
[2020-04-17 11:07] VITALS: BP 122/57; PULSE 83; RESP 16; TEMP 36.3; O2SAT 97
== END 2020-04-17 11:15 | disposition skilled nursing facility (03) | DRG 72 ==
PROVIDERS: Admitting Provider Family Medicine Geriatric Medicine; PCP Family Medicine; Visit Provider Family Medicine Geriatric Medicine
DX: G93.40 Encephalopathy, unspecified (principal); H92.02 Otalgia, left ear; E53.8 Deficiency of other specified B group vitamins; I25.10 Atherosclerotic heart disease of native coronary artery without angina pectoris; K21.9 Gastro-esophageal reflux disease without esophagitis; D50.9 Iron deficiency anemia, unspecified; I10 Essential (primary) hypertension; E78.5 Hyperlipidemia, unspecified; E11.9 Type 2 diabetes mellitus without complications; E66.9 Obesity, unspecified; Z68.36 Body mass index [BMI] 36.0-36.9, adult; B35.4 Tinea corporis; Z95.810 Presence of automatic (implantable) cardiac defibrillator
CPT/HCPCS: 36415; 62270; 72125; 72128; 72131; 74018; 77003; 80048; 80053; 82040; 82042; 82784; 82945; 82947; 82962; 83735; 83873; 83916; 84157; 84165; 85025; 86140; 86334; 87070; 87205; 87498; 87529; 87635; 87798; 88108; 88313; 89050; 89051; 94799; 97110; 97162; 97163; 97165; 97166; 97530; 97535; 97802; 99251; J7030; A4216; G0463; J2405; J3420; U0003

== ENCOUNTER → 2021-02-01 04:00 | Outpatient (REF) | payer MEDICARE, MEDICAID, SELFPAY ==
[2020-04-04 16:50] VITALS: BMI 36.5
[2021-02-01 07:48] LABS: Hemoglobin A1c 8.5 % (3.8-5.6)
[2021-02-01 07:51] LABS: Cholesterol 137 mg/dL (200); High Density Lipoprotein 43 mg/dL; Triglycerides 95 mg/dL; Very Low Density Lipoprotein 19 mg/dL (5-40)
[2021-02-01 08:28] LABS: Vitamin B12 347 pg/mL (211-911)
== END ==
LOC: OLS.SW500 04:00
PROVIDERS: PCP Family Medicine; Visit Provider Family Medicine
DX: E11.9 Type 2 diabetes mellitus without complications (principal); E78.5 Hyperlipidemia, unspecified; D51.9 Vitamin B12 deficiency anemia, unspecified
CPT/HCPCS: 36415; 80061; 82607; 83036

== ENCOUNTER → 2021-02-08 05:00 | Outpatient (REF) | payer MEDICARE, MEDICAID, SELFPAY ==
[2020-04-04 16:50] VITALS: BMI 36.5
[2021-02-08 09:17] LABS: Absolute Lymphocyte Count 1.93 X10^3/uL (0.83-4.51); Absolute Neutrophil Count 4.2 X10^3/uL (2.0-7.7); Basophil# 0.08 X10^3/uL; Basophil% 1.1 % (0-1); Eosinophil# 0.49 X10^3/uL; Eosinophils% 6.7 % (0-5); Hematocrit 33.5 % (37-47); Hemoglobin 10.8 g/dL (12.0-15.0); Lymphocyte # 1.93 X10^3/ul (0.83-4.51); Lymphocyte % 26.5 % (19-41); Mean Corp Hgb Conc 32.2 g/dL (32-36); Mean Corpuscular Hgb 29.6 pg (27.0-32.0); Mean Corpuscular Volume 91.8 fL (81-99); Mean Platelet Vol. 10.6 fl (6.2-12.0); Monocyte% 8.3 % (0-10); NRBC Flagged by Analyzer 0 % (0-5); Neutrophil # 4.15 X10^3/uL (2.7-7.7); Neutrophil % 57.1 % (47-70); Platelet Count 273 K/mm3 (150-450); RBC Distribution Width SD 43.1 fl (35.1-43.9); Red Blood Count 3.65 M/mm3 (4.2-5.4); White Blood Count 7.3 K/mm3 (4.4-11.0)
[2021-02-08 09:24] LABS: ALB/GLOB Ratio 0.8 RATIO (0.9-2.4); AST(SGOT) 14 U/L (15-37); Alanine Aminotransfer ALT/SGPT 12 U/L (13-56); Albumin, Serum 2.8 g/dL (3.2-5.0); Alkaline Phosphatase 166 U/L (45-117); Anion Gap 6 (5-15); BUN 25 mg/dL (7-18); BUN/Creat Ratio 19.8 RATIO (10-20); Chloride 103 mmol/L (98-107); Creatinine, Serum 1.26 mg/dL (0.55-1.02); EST Glomerular Filtration Rate 44 mL/min (>60); Est Glom Filt Rate - Afr Amer 53 mL/min (>60); Globulin 3.5 g/dL (2.2-4.2); Glucose 171 mg/dL (74-106); Protein, Total 6.3 g/dL (6.4-8.2); Sodium Level 141 mmol/L (136-145)
== END ==
LOC: OLS.SW500 05:00
PROVIDERS: PCP Family Medicine; Visit Provider Family Medicine
DX: E11.9 Type 2 diabetes mellitus without complications (principal); I10 Essential (primary) hypertension; K92.2 Gastrointestinal hemorrhage, unspecified
CPT/HCPCS: 36415; 80053; 82140; 85025

== ENCOUNTER → 2021-03-10 05:00 | Outpatient (REF) | payer MEDICARE, MEDICAID, SELFPAY ==
[2020-04-04 16:50] VITALS: BMI 36.5
[2021-03-10 07:15] LABS: Absolute Lymphocyte Count 1.56 X10^3/uL (0.83-4.51); Absolute Neutrophil Count 4.2 X10^3/uL (2.0-7.7); Basophil# 0.06 X10^3/uL; Basophil% 0.9 % (0-1); Eosinophil# 0.33 X10^3/uL; Eosinophils% 4.8 % (0-5); Hematocrit 35.2 % (37-47); Hemoglobin 11.6 g/dL (12.0-15.0); Lymphocyte # 1.56 X10^3/ul (0.83-4.51); Lymphocyte % 22.6 % (19-41); Mean Corpuscular Hgb 30.3 pg (27.0-32.0); Mean Corpuscular Volume 91.9 fL (81-99); Mean Platelet Vol. 10.8 fl (6.2-12.0); Monocyte# 0.67 X10^3/uL; Monocyte% 9.7 % (0-10); NRBC Flagged by Analyzer 0 % (0-5); Neutrophil # 4.24 X10^3/uL (2.7-7.7); Neutrophil % 61.6 % (47-70); Platelet Count 263 K/mm3 (150-450); RBC Distribution Width CV 12.7 % (11.6-14.6); Red Blood Count 3.83 M/mm3 (4.2-5.4); White Blood Count 6.9 K/mm3 (4.4-11.0)
[2021-03-10 07:28] LABS: ALB/GLOB Ratio 0.7 RATIO (0.9-2.4); AST(SGOT) 13 U/L (15-37); Alanine Aminotransfer ALT/SGPT 19 U/L (13-56); Albumin, Serum 2.7 g/dL (3.2-5.0); Alkaline Phosphatase 144 U/L (45-117); BUN 29 mg/dL (7-18); BUN/Creat Ratio 23.2 RATIO (10-20); Calcium,Total 8.8 mg/dL (8.5-10.1); Chloride 104 mmol/L (98-107); Creatinine, Serum 1.25 mg/dL (0.55-1.02); EST Glomerular Filtration Rate 44 mL/min (>60); Est Glom Filt Rate - Afr Amer 53 mL/min (>60); Globulin 3.7 g/dL (2.2-4.2); Glucose 246 mg/dL (74-106); Potassium 3.7 mmol/L (3.5-5.1); Protein, Total 6.4 g/dL (6.4-8.2); Sodium Level 141 mmol/L (136-145)
[2021-03-10 07:29] LABS: Anion Gap 4 (5-15)
[2021-03-10 07:32] LABS: Ammonia < 10.0 umol/L (11-32)
== END ==
LOC: OLS.SW500 05:00
PROVIDERS: PCP Family Medicine; Referring Provider Family Medicine; Visit Provider Family Medicine
DX: K92.2 Gastrointestinal hemorrhage, unspecified (principal)
CPT/HCPCS: 36415; 80053; 82140; 85025

== ENCOUNTER → 2021-04-09 05:00 | Outpatient (REF) | payer MEDICARE, MEDICAID, SELFPAY ==
[2021-04-09 07:44] LABS: Hematocrit 32.1 % (37-47); Hemoglobin 10.5 g/dL (12.0-15.0); Mean Corp Hgb Conc 32.7 g/dL (32-36); Mean Corpuscular Hgb 30.1 pg (27.0-32.0); Mean Platelet Vol. 10.7 fl (6.2-12.0); Platelet Count 265 K/mm3 (150-450); RBC Distribution Width CV 12.8 % (11.6-14.6); RBC Distribution Width SD 42.4 fl (35.1-43.9); Red Blood Count 3.49 M/mm3 (4.2-5.4); White Blood Count 6.9 K/mm3 (4.4-11.0)
[2021-04-09 08:22] LABS: ALB/GLOB Ratio 0.7 RATIO (0.9-2.4); AST(SGOT) 14 U/L (15-37); Alanine Aminotransfer ALT/SGPT 16 U/L (13-56); Albumin, Serum 2.6 g/dL (3.2-5.0); Alkaline Phosphatase 120 U/L (45-117); Anion Gap 3 (5-15); BUN 41 mg/dL (7-18); BUN/Creat Ratio 29.5 RATIO (10-20); Calcium,Total 8.8 mg/dL (8.5-10.1); Chloride 106 mmol/L (98-107); Creatinine, Serum 1.39 mg/dL (0.55-1.02); EST Glomerular Filtration Rate 39 mL/min (>60); Est Glom Filt Rate - Afr Amer 47 mL/min (>60); Globulin 3.5 g/dL (2.2-4.2); Glucose 199 mg/dL (74-106); Potassium 3.7 mmol/L (3.5-5.1); Protein, Total 6.1 g/dL (6.4-8.2); Sodium Level 140 mmol/L (136-145)
== END ==
LOC: OLS.SW500 05:00
PROVIDERS: PCP Family Medicine; Visit Provider Family Medicine
DX: K92.2 Gastrointestinal hemorrhage, unspecified (principal)
CPT/HCPCS: 36415; 80053; 82140; 85027

== ENCOUNTER → 2021-04-20 21:00 | Outpatient (REF) | payer MEDICARE, MEDICAID, SELFPAY ==
[2021-04-21 06:40] LABS: Bacteria 0 SEEN /hpf (None Seen); Mucous, Urine 0 SEEN /hpf (<or=2+); Red Blood Cells-Urine 0 SEEN /hpf (0-5); Squamous Epithelial Cells - UA 0 SEEN /hpf (5-10)
[2021-04-21 07:11] LABS: Color, Urine Yellow (Yellow); Glucose, Dipstick Normal (Normal); Ketone-Dipstick 5 mg/dl (Negative); Leukocyte Esterase-Dipstick 500 /ul (Negative); Nitrite-Dipstick Negative (Negative); Occult Blood-Urine 150 /ul (Negative); Protein-Dipstick 100 mg/dl (Negative); Specific Gravity, Urine 1.025 (1.002-1.030); Urine Clarity Cloudy (Clear); Urine Urobilinogen Normal (Normal)
[2021-04-21 07:14] LABS: Urine Bilirubin Dipstick 1 mg/dL (Negative)
[2021-04-21 07:25] LABS: White Blood Cells >100 SEEN /hpf (0-5)
== END ==
LOC: OLS.SW500 21:00
PROVIDERS: PCP Family Medicine; Visit Provider Family Medicine
DX: R41.82 Altered mental status, unspecified (principal)
CPT/HCPCS: 81001; 87077; 87086; 87088; 87186

== ENCOUNTER → 2021-05-03 05:00 | Outpatient (REF) | payer MEDICARE, MEDICAID, SELFPAY ==
[2021-05-03 08:31] LABS: Vitamin B12 338 pg/mL (211-911)
[2021-05-03 08:34] LABS: Cholesterol 138 mg/dL (200); High Density Lipoprotein 38 mg/dL; Triglycerides 136 mg/dL; Very Low Density Lipoprotein 27 mg/dL (5-40)
[2021-05-03 08:35] LABS: Hemoglobin A1c 9.5 % (3.8-5.6)
== END ==
LOC: OLS.SW500 05:00
PROVIDERS: PCP Family Medicine; Visit Provider Family Medicine
DX: E11.9 Type 2 diabetes mellitus without complications (principal); E78.5 Hyperlipidemia, unspecified; D51.9 Vitamin B12 deficiency anemia, unspecified; D64.9 Anemia, unspecified
CPT/HCPCS: 36415; 80061; 82607; 83036

== ENCOUNTER → 2021-05-10 05:00 | Outpatient (REF) | payer MEDICARE, MEDICAID, SELFPAY ==
[2021-05-10 08:49] LABS: Absolute Lymphocyte Count 1.42 X10^3/uL (0.83-4.51); Absolute Neutrophil Count 5.7 X10^3/uL (2.0-7.7); Basophil# 0.09 X10^3/uL; Basophil% 1.1 % (0-1); Eosinophil# 0.38 X10^3/uL; Eosinophils% 4.7 % (0-5); Hematocrit 36.7 % (37-47); Hemoglobin 12.4 g/dL (12.0-15.0); Lymphocyte # 1.42 X10^3/ul (0.83-4.51); Lymphocyte % 17.4 % (19-41); Mean Corp Hgb Conc 33.8 g/dL (32-36); Mean Corpuscular Hgb 34.3 pg (27.0-32.0); Mean Corpuscular Volume 101.4 fL (81-99); Mean Platelet Vol. 10.7 fl (6.2-12.0); Monocyte% 6.1 % (0-10); NRBC Flagged by Analyzer 0 % (0-5); Neutrophil # 5.71 X10^3/uL (2.7-7.7); Neutrophil % 70.1 % (47-70); Platelet Count 177 K/mm3 (150-450); RBC Distribution Width CV 13.2 % (11.6-14.6); RBC Distribution Width SD 46.3 fl (35.1-43.9); Red Blood Count 3.62 M/mm3 (4.2-5.4); White Blood Count 8.2 K/mm3 (4.4-11.0)
[2021-05-10 09:12] LABS: ALB/GLOB Ratio 0.6 RATIO (0.9-2.4); AST(SGOT) 16 U/L (15-37); Alanine Aminotransfer ALT/SGPT 22 U/L (13-56); Albumin, Serum 2.7 g/dL (3.2-5.0); Alkaline Phosphatase 123 U/L (45-117); Anion Gap 3 (5-15); BUN 33 mg/dL (7-18); Calcium,Total 9.2 mg/dL (8.5-10.1); Chloride 106 mmol/L (98-107); Creatinine, Serum 1.27 mg/dL (0.55-1.02); EST Glomerular Filtration Rate 43 mL/min (>60); Est Glom Filt Rate - Afr Amer 52 mL/min (>60); Globulin 4.2 g/dL (2.2-4.2); Glucose 189 mg/dL (74-106); Protein, Total 6.9 g/dL (6.4-8.2); Sodium Level 139 mmol/L (136-145)
== END ==
LOC: OLS.SW500 05:00
PROVIDERS: PCP Family Medicine; Visit Provider Family Medicine
DX: E11.9 Type 2 diabetes mellitus without complications (principal); I10 Essential (primary) hypertension; K92.2 Gastrointestinal hemorrhage, unspecified
CPT/HCPCS: 36415; 80053; 82140; 85025

== ENCOUNTER → 2021-05-13 05:00 | Outpatient (REF) | payer MEDICARE, MEDICAID, SELFPAY ==
[2021-05-13 09:48] LABS: Hematocrit 31.8 % (37-47); Hemoglobin 10.4 g/dL (12.0-15.0); Mean Corp Hgb Conc 32.7 g/dL (32-36); Mean Corpuscular Hgb 31.1 pg (27.0-32.0); Mean Corpuscular Volume 95.2 fL (81-99); Mean Platelet Vol. 11.2 fl (6.2-12.0); Platelet Count 236 K/mm3 (150-450); RBC Distribution Width CV 13.3 % (11.6-14.6); RBC Distribution Width SD 45.6 fl (35.1-43.9); Red Blood Count 3.34 M/mm3 (4.2-5.4); White Blood Count 7.5 K/mm3 (4.4-11.0)
[2021-05-13 09:52] LABS: Scan Indicated on CBC? Y/N NO
[2021-05-13 10:04] LABS: Anion Gap 2 (5-15); BUN 34 mg/dL (7-18); BUN/Creat Ratio 21.5 RATIO (10-20); Calcium,Total 8.8 mg/dL (8.5-10.1); Chloride 108 mmol/L (98-107); Creatinine, Serum 1.58 mg/dL (0.55-1.02); EST Glomerular Filtration Rate 34 mL/min (>60); Est Glom Filt Rate - Afr Amer 41 mL/min (>60); Glucose 85 mg/dL (74-106); Sodium Level 142 mmol/L (136-145)
== END ==
LOC: OLS.SW500 05:00
PROVIDERS: PCP Family Medicine; Visit Provider Family Medicine
DX: I10 Essential (primary) hypertension (principal); E78.5 Hyperlipidemia, unspecified; I63.10 Cerebral infarction due to embolism of unspecified precerebral artery; I25.10 Atherosclerotic heart disease of native coronary artery without angina pectoris; Z99.81 Dependence on supplemental oxygen
CPT/HCPCS: 36415; 80048; 85027

== ENCOUNTER → 2021-06-07 05:00 | Outpatient (REF) | payer MEDICARE, MEDICAID, SELFPAY ==
[2021-06-07 07:14] LABS: Absolute Lymphocyte Count 2.23 X10^3/uL (0.83-4.51); Absolute Neutrophil Count 4.6 X10^3/uL (2.0-7.7); Basophil# 0.07 X10^3/uL; Basophil% 0.9 % (0-1); Eosinophil# 0.38 X10^3/uL; Eosinophils% 4.8 % (0-5); Hematocrit 31.6 % (37-47); Hemoglobin 10.4 g/dL (12.0-15.0); Lymphocyte # 2.23 X10^3/ul (0.83-4.51); Lymphocyte % 27.9 % (19-41); Mean Corp Hgb Conc 32.9 g/dL (32-36); Mean Corpuscular Hgb 29.9 pg (27.0-32.0); Mean Corpuscular Volume 90.8 fL (81-99); Mean Platelet Vol. 10.6 fl (6.2-12.0); Monocyte# 0.72 X10^3/uL; NRBC Flagged by Analyzer 0 % (0-5); Neutrophil # 4.56 X10^3/uL (2.7-7.7); Neutrophil % 56.9 % (47-70); Platelet Count 257 K/mm3 (150-450); RBC Distribution Width SD 42.5 fl (35.1-43.9); Red Blood Count 3.48 M/mm3 (4.2-5.4)
[2021-06-07 07:47] LABS: ALB/GLOB Ratio 0.6 RATIO (0.9-2.4); AST(SGOT) 14 U/L (15-37); Alanine Aminotransfer ALT/SGPT 16 U/L (13-56); Albumin, Serum 2.3 g/dL (3.2-5.0); Alkaline Phosphatase 115 U/L (45-117); Anion Gap 7 (5-15); BUN 29 mg/dL (7-18); BUN/Creat Ratio 17.3 RATIO (10-20); Calcium,Total 8.8 mg/dL (8.5-10.1); Chloride 104 mmol/L (98-107); Creatinine, Serum 1.68 mg/dL (0.55-1.02); EST Glomerular Filtration Rate 31 mL/min (>60); Est Glom Filt Rate - Afr Amer 38 mL/min (>60); Globulin 3.9 g/dL (2.2-4.2); Glucose 122 mg/dL (74-106); Protein, Total 6.2 g/dL (6.4-8.2); Sodium Level 142 mmol/L (136-145)
== END ==
LOC: OLS.SW500 05:00
PROVIDERS: PCP Family Medicine; Visit Provider Family Medicine
DX: K92.2 Gastrointestinal hemorrhage, unspecified (principal)
CPT/HCPCS: 36415; 80053; 82140; 85025

== ENCOUNTER → 2021-07-05 05:00 | Outpatient (REF) | payer MEDICARE, MEDICAID, SELFPAY ==
[2021-07-05 08:45] LABS: Absolute Lymphocyte Count 1.83 X10^3/uL (0.83-4.51); Absolute Neutrophil Count 4.4 X10^3/uL (2.0-7.7); Basophil# 0.07 X10^3/uL; Basophil% 0.9 % (0-1); Eosinophil# 0.56 X10^3/uL; Eosinophils% 7.5 % (0-5); Hemoglobin 11.9 g/dL (12.0-15.0); Lymphocyte # 1.83 X10^3/ul (0.83-4.51); Lymphocyte % 24.6 % (19-41); Mean Corp Hgb Conc 32.2 g/dL (32-36); Mean Corpuscular Hgb 30.4 pg (27.0-32.0); Mean Corpuscular Volume 94.6 fL (81-99); Mean Platelet Vol. 10.7 fl (6.2-12.0); Monocyte# 0.52 X10^3/uL; NRBC Flagged by Analyzer 0 % (0-5); Neutrophil # 4.42 X10^3/uL (2.7-7.7); Neutrophil % 59.6 % (47-70); Platelet Count 273 K/mm3 (150-450); RBC Distribution Width CV 13.2 % (11.6-14.6); RBC Distribution Width SD 45.4 fl (35.1-43.9); Red Blood Count 3.91 M/mm3 (4.2-5.4); White Blood Count 7.4 K/mm3 (4.4-11.0)
[2021-07-05 09:16] LABS: ALB/GLOB Ratio 0.6 RATIO (0.9-2.4); AST(SGOT) 16 U/L (15-37); Alanine Aminotransfer ALT/SGPT 19 U/L (13-56); Albumin, Serum 2.8 g/dL (3.2-5.0); Alkaline Phosphatase 140 U/L (45-117); Anion Gap 4 (5-15); BUN 25 mg/dL (7-18); BUN/Creat Ratio 19.7 RATIO (10-20); Calcium,Total 9.5 mg/dL (8.5-10.1); Chloride 105 mmol/L (98-107); Creatinine, Serum 1.27 mg/dL (0.55-1.02); EST Glomerular Filtration Rate 43 mL/min (>60); Est Glom Filt Rate - Afr Amer 52 mL/min (>60); Globulin 4.5 g/dL (2.2-4.2); Glucose 152 mg/dL (74-106); Potassium 4.1 mmol/L (3.5-5.1); Protein, Total 7.3 g/dL (6.4-8.2); Sodium Level 141 mmol/L (136-145)
== END ==
LOC: OLS.SW500 05:00
PROVIDERS: PCP Family Medicine; Visit Provider Family Medicine
DX: D64.9 Anemia, unspecified (principal); E78.5 Hyperlipidemia, unspecified; K92.2 Gastrointestinal hemorrhage, unspecified
CPT/HCPCS: 36415; 80053; 82140; 85025

== ENCOUNTER → 2021-08-02 | Outpatient (REF) | payer MEDICARE, MEDICAID, SELFPAY ==
[2021-08-02 08:55] LABS: Absolute Lymphocyte Count 1.87 X10^3/uL (0.83-4.51); Absolute Neutrophil Count 3.9 X10^3/uL (2.0-7.7); Basophil# 0.07 X10^3/uL; Eosinophil# 0.59 X10^3/uL; Eosinophils% 8.3 % (0-5); Hematocrit 31.2 % (37-47); Hemoglobin 10.3 g/dL (12.0-15.0); Lymphocyte # 1.87 X10^3/ul (0.83-4.51); Lymphocyte % 26.2 % (19-41); Mean Corpuscular Hgb 31.1 pg (27.0-32.0); Mean Corpuscular Volume 94.3 fL (81-99); Mean Platelet Vol. 10.7 fl (6.2-12.0); Monocyte# 0.66 X10^3/uL; Monocyte% 9.2 % (0-10); NRBC Flagged by Analyzer 0 % (0-5); Neutrophil # 3.93 X10^3/uL (2.7-7.7); Platelet Count 228 K/mm3 (150-450); RBC Distribution Width CV 13.1 % (11.6-14.6); RBC Distribution Width SD 44.7 fl (35.1-43.9); Red Blood Count 3.31 M/mm3 (4.2-5.4); White Blood Count 7.1 K/mm3 (4.4-11.0)
[2021-08-02 09:08] LABS: Vitamin B12 257 pg/mL (211-911)
[2021-08-02 09:09] LABS: Hemoglobin A1c 7.9 % (3.8-5.6)
[2021-08-02 09:16] LABS: ALB/GLOB Ratio 0.7 RATIO (0.9-2.4); AST(SGOT) 20 U/L (15-37); Alanine Aminotransfer ALT/SGPT 25 U/L (13-56); Albumin, Serum 2.5 g/dL (3.2-5.0); Alkaline Phosphatase 122 U/L (45-117); Anion Gap 7 (5-15); BUN 33 mg/dL (7-18); BUN/Creat Ratio 23.1 RATIO (10-20); Calcium,Total 8.6 mg/dL (8.5-10.1); Chloride 106 mmol/L (98-107); Cholesterol 127 mg/dL (200); Creatinine, Serum 1.43 mg/dL (0.55-1.02); EST Glomerular Filtration Rate 38 mL/min (>60); Est Glom Filt Rate - Afr Amer 46 mL/min (>60); Globulin 3.7 g/dL (2.2-4.2); Glucose 170 mg/dL (74-106); High Density Lipoprotein 40 mg/dL; Potassium 4.3 mmol/L (3.5-5.1); Protein, Total 6.2 g/dL (6.4-8.2); Sodium Level 142 mmol/L (136-145); Triglycerides 122 mg/dL; Very Low Density Lipoprotein 24 mg/dL (5-40)
== END | disposition home or self-care (01) ==
LOC: OLS.SW500 04:00
PROVIDERS: PCP Family Medicine; Visit Provider Family Medicine
DX: E11.9 Type 2 diabetes mellitus without complications (principal); E78.5 Hyperlipidemia, unspecified; D51.9 Vitamin B12 deficiency anemia, unspecified; K92.2 Gastrointestinal hemorrhage, unspecified
CPT/HCPCS: 36415; 80053; 80061; 82140; 82607; 83036; 85025

== ENCOUNTER → 2021-08-30 | Outpatient (REF) | payer MEDICARE, MEDICAID, SELFPAY ==
[2021-08-30 08:34] LABS: Absolute Lymphocyte Count 2.13 X10^3/uL (0.83-4.51); Absolute Neutrophil Count 3.9 X10^3/uL (2.0-7.7); Basophil# 0.05 X10^3/uL; Basophil% 0.7 % (0-1); Eosinophil# 0.53 X10^3/uL; Eosinophils% 7.2 % (0-5); Hematocrit 33.4 % (37-47); Hemoglobin 11.2 g/dL (12.0-15.0); Lymphocyte # 2.13 X10^3/ul (0.83-4.51); Lymphocyte % 28.9 % (19-41); Mean Corp Hgb Conc 33.5 g/dL (32-36); Mean Corpuscular Hgb 31.1 pg (27.0-32.0); Mean Corpuscular Volume 92.8 fL (81-99); Mean Platelet Vol. 10.5 fl (6.2-12.0); Monocyte# 0.72 X10^3/uL; Monocyte% 9.8 % (0-10); NRBC Flagged by Analyzer 0 % (0-5); Neutrophil # 3.93 X10^3/uL (2.7-7.7); Neutrophil % 53.1 % (47-70); Platelet Count 225 K/mm3 (150-450); RBC Distribution Width SD 43.5 fl (35.1-43.9); White Blood Count 7.4 K/mm3 (4.4-11.0)
[2021-08-30 09:26] LABS: ALB/GLOB Ratio 0.6 RATIO (0.9-2.4); AST(SGOT) 18 U/L (15-37); Alanine Aminotransfer ALT/SGPT 17 U/L (13-56); Albumin, Serum 2.6 g/dL (3.2-5.0); Alkaline Phosphatase 125 U/L (45-117); Anion Gap 6 (5-15); BUN 30 mg/dL (7-18); BUN/Creat Ratio 20.4 RATIO (10-20); Calcium,Total 8.8 mg/dL (8.5-10.1); Chloride 107 mmol/L (98-107); Creatinine, Serum 1.47 mg/dL (0.55-1.02); EST Glomerular Filtration Rate 36 mL/min (>60); Est Glom Filt Rate - Afr Amer 44 mL/min (>60); Glucose 64 mg/dL (74-106); Protein, Total 6.6 g/dL (6.4-8.2); Sodium Level 142 mmol/L (136-145)
== END | disposition home or self-care (01) ==
LOC: OLS.SW500 05:00
PROVIDERS: PCP Family Medicine; Visit Provider Family Medicine
DX: K92.2 Gastrointestinal hemorrhage, unspecified (principal)
CPT/HCPCS: 36415; 80053; 82140; 85025

== ENCOUNTER 2021-10-25 04:00 | Outpatient (REF) | payer MEDICARE, MEDICAID, SELFPAY ==
[2021-10-25 08:42] LABS: Absolute Lymphocyte Count 1.95 X10^3/uL (0.83-4.51); Absolute Neutrophil Count 4.3 X10^3/uL (2.0-7.7); Basophil# 0.07 X10^3/uL; Basophil% 0.9 % (0-1); Eosinophil# 0.61 X10^3/uL; Hematocrit 35.6 % (37-47); Hemoglobin 11.5 g/dL (12.0-15.0); Lymphocyte # 1.95 X10^3/ul (0.83-4.51); Lymphocyte % 25.7 % (19-41); Mean Corp Hgb Conc 32.3 g/dL (32-36); Mean Corpuscular Hgb 30.6 pg (27.0-32.0); Mean Corpuscular Volume 94.7 fL (81-99); Mean Platelet Vol. 10.7 fl (6.2-12.0); Monocyte# 0.61 X10^3/uL; NRBC Flagged by Analyzer 0 % (0-5); Neutrophil # 4.32 X10^3/uL (2.7-7.7); Platelet Count 243 K/mm3 (150-450); RBC Distribution Width CV 12.9 % (11.6-14.6); RBC Distribution Width SD 44.5 fl (35.1-43.9); Red Blood Count 3.76 M/mm3 (4.2-5.4); White Blood Count 7.6 K/mm3 (4.4-11.0)
[2021-10-25 09:04] LABS: ALB/GLOB Ratio 0.8 RATIO (0.9-2.4); AST(SGOT) 20 U/L (15-37); Alanine Aminotransfer ALT/SGPT 19 U/L (13-56); Alkaline Phosphatase 130 U/L (45-117); Anion Gap 3 (5-15); BUN 23 mg/dL (7-18); Calcium,Total 9.4 mg/dL (8.5-10.1); Chloride 107 mmol/L (98-107); Creatinine, Serum 1.64 mg/dL (0.55-1.02); EST Glomerular Filtration Rate 32 mL/min (>60); Est Glom Filt Rate - Afr Amer 39 mL/min (>60); Globulin 3.9 g/dL (2.2-4.2); Glucose 157 mg/dL (74-106); Potassium 4.4 mmol/L (3.5-5.1); Protein, Total 6.9 g/dL (6.4-8.2); Sodium Level 143 mmol/L (136-145)
== END 2021-10-25 23:59 | disposition home or self-care (01) ==
LOC: OLS.SW500 04:00
PROVIDERS: PCP Family Medicine; Referring Provider Family Medicine; Visit Provider Family Medicine
DX: I10 Essential (primary) hypertension (principal); E78.5 Hyperlipidemia, unspecified; K92.2 Gastrointestinal hemorrhage, unspecified
CPT/HCPCS: 36415; 80053; 82140; 85025

== ENCOUNTER 2021-11-01 04:00 | Outpatient (REF) | payer MEDICARE, MEDICAID, SELFPAY ==
[2021-11-01 08:41] LABS: Cholesterol 139 mg/dL (200); High Density Lipoprotein 45 mg/dL; Triglycerides 116 mg/dL; Very Low Density Lipoprotein 23 mg/dL (5-40)
[2021-11-01 08:44] LABS: Vitamin D,25 Hydroxy 28.8 ng/mL
[2021-11-01 09:37] LABS: Hemoglobin A1c 7.3 % (3.8-5.6)
== END 2021-11-01 23:59 | disposition home or self-care (01) ==
LOC: OLS.SW500 04:00
PROVIDERS: PCP Family Medicine; Visit Provider Family Medicine
DX: D64.9 Anemia, unspecified (principal); E11.9 Type 2 diabetes mellitus without complications; E78.5 Hyperlipidemia, unspecified; M85.80 Other specified disorders of bone density and structure, unspecified site
CPT/HCPCS: 36415; 80061; 82306; 83036

== ENCOUNTER 2021-11-22 04:00 | Outpatient (REF) | payer MEDICARE, MEDICAID, SELFPAY ==
[2021-11-22 07:33] LABS: Absolute Lymphocyte Count 0.95 X10^3/uL (0.83-4.51); Absolute Neutrophil Count 6.8 X10^3/uL (2.0-7.7); Basophil# 0.08 X10^3/uL; Basophil% 0.9 % (0-1); Eosinophil# 0.14 X10^3/uL; Eosinophils% 1.5 % (0-5); Hematocrit 34.6 % (37-47); Hemoglobin 11.1 g/dL (12.0-15.0); Lymphocyte # 0.95 X10^3/ul (0.83-4.51); Lymphocyte % 10.4 % (19-41); Mean Corp Hgb Conc 32.1 g/dL (32-36); Mean Corpuscular Hgb 29.8 pg (27.0-32.0); Mean Platelet Vol. 11.1 fl (6.2-12.0); Monocyte# 1.13 X10^3/uL; Monocyte% 12.3 % (0-10); NRBC Flagged by Analyzer 0 % (0-5); Neutrophil # 6.81 X10^3/uL (2.7-7.7); Neutrophil % 74.4 % (47-70); Platelet Count 242 K/mm3 (150-450); RBC Distribution Width CV 13.2 % (11.6-14.6); RBC Distribution Width SD 45.3 fl (35.1-43.9); Red Blood Count 3.72 M/mm3 (4.2-5.4); White Blood Count 9.2 K/mm3 (4.4-11.0)
[2021-11-22 07:53] LABS: ALB/GLOB Ratio 0.7 RATIO (0.9-2.4); AST(SGOT) 28 U/L (15-37); Alanine Aminotransfer ALT/SGPT 22 U/L (13-56); Alkaline Phosphatase 126 U/L (45-117); Anion Gap 5 (5-15); BUN 21 mg/dL (7-18); BUN/Creat Ratio 15.7 RATIO (10-20); Calcium,Total 8.6 mg/dL (8.5-10.1); Chloride 105 mmol/L (98-107); Creatinine, Serum 1.34 mg/dL (0.55-1.02); EST Glomerular Filtration Rate 41 mL/min (>60); Est Glom Filt Rate - Afr Amer 49 mL/min (>60); Globulin 4.2 g/dL (2.2-4.2); Glucose 120 mg/dL (74-106); Potassium 4.5 mmol/L (3.5-5.1); Protein, Total 7.2 g/dL (6.4-8.2); Sodium Level 139 mmol/L (136-145)
== END 2021-11-22 23:59 | disposition home or self-care (01) ==
LOC: OLS.SW500 04:00
PROVIDERS: PCP Family Medicine; Referring Provider Family Medicine; Visit Provider Family Medicine
DX: K92.2 Gastrointestinal hemorrhage, unspecified (principal)
CPT/HCPCS: 36415; 80053; 82140; 85025

== ENCOUNTER 2021-11-24 04:00 | Outpatient (REF) | payer MEDICARE, MEDICAID, SELFPAY ==
[2021-11-24 08:30] LABS: Hematocrit 28.5 % (37-47); Hemoglobin 9.2 g/dL (12.0-15.0); Mean Corp Hgb Conc 32.3 g/dL (32-36); Mean Corpuscular Hgb 29.9 pg (27.0-32.0); Mean Corpuscular Volume 92.5 fL (81-99); Mean Platelet Vol. 10.9 fl (6.2-12.0); Platelet Count 169 K/mm3 (150-450); RBC Distribution Width CV 13.2 % (11.6-14.6); RBC Distribution Width SD 44.7 fl (35.1-43.9); Red Blood Count 3.08 M/mm3 (4.2-5.4); White Blood Count 5.8 K/mm3 (4.4-11.0)
[2021-11-24 08:45] LABS: Anion Gap 4 (5-15); BUN 46 mg/dL (7-18); BUN/Creat Ratio 21.5 RATIO (10-20); Calcium,Total 8.2 mg/dL (8.5-10.1); Chloride 103 mmol/L (98-107); Creatinine, Serum 2.14 mg/dL (0.55-1.02); EST Glomerular Filtration Rate 24 mL/min (>60); Est Glom Filt Rate - Afr Amer 29 mL/min (>60); Glucose 100 mg/dL (74-106); Potassium 3.9 mmol/L (3.5-5.1); Sodium Level 138 mmol/L (136-145)
== END 2021-11-24 23:59 | disposition home or self-care (01) ==
LOC: OLS.SW500 04:00
PROVIDERS: PCP Family Medicine; Referring Provider Family Medicine; Visit Provider Family Medicine
DX: E11.9 Type 2 diabetes mellitus without complications (principal); R06.02 Shortness of breath
CPT/HCPCS: 36415; 80048; 85027

== ENCOUNTER 2021-11-26 13:19 | Emergency (ER) | payer MEDICARE, MEDICAID, SELFPAY ==
[2021-11-26 13:21] VITALS: BP 145/60; PULSE 75; RESP 16; TEMP 36.9; O2SAT 100; BMI 32.1
[2021-11-26 13:23] VITALS: BP 145/60; PULSE 75; RESP 18; TEMP 36.9; O2SAT 100
--- NOTE | 2021-11-26 13:40 | EDS_ITS ---
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 Per the skilled nursing, patient had abnormal GFR, BUN, as well as a elevated ammonia level. Patient was diagnosed with pneumonia 2 days ago, patient is currently on azithromycin orally. Patient is alert and orient x4, patient is on 6 L of nasal cannula, patient states she normally does not need any oxygen. Patient denies any fevers or chills. Patient is not quite sure why she is here, she states that her lab values were off. Patient has past medical history of CVA, hypertension, diabetes, CAD, pacemaker defibrillator. [facility] <JAYRO Castillo - Last Filed: 11/26/21 15:02> [facility] Medical History (Updated 11/26/21 @ 15:01 by JAYRO Castillo) Cardiac defibrillator in place Diabetes mellitus heart cath Heart disease Left arm surgery Pacemaker Stroke Home Medications anastrozole 1 mg PO DAILY 03/02/20 [History Last Taken 04/04/20] aspirin 81 mg PO DAILY@0800 03/02/20 [History Last Taken 04/04/20] atorvastatin 80 mg PO QHS 03/02/20 [History Last Taken 04/03/20] insulin detemir U-100 35 unit SQ DAILY 03/02/20 [History Last Taken 04/04/20] insulin lispro 5 unit SQ TID 03/02/20 [History Last Taken 04/04/20] isosorbide mononitrate 30 mg PO DAILY 03/02/20 [History Last Taken 04/04/20] losartan 25 mg PO DAILY 03/02/20 [History Last Taken 04/04/20] melatonin 6 mg PO QHS 03/02/20 [History Last Taken 04/03/20] metoprolol succinate 25 mg PO DAILY 03/02/20 [History Last Taken 04/04/20] ondansetron HCl 4 mg PO Q6H PRN PRN 03/02/20 [History Last Taken 03/02/20] polyethylene glycol 3350 17 gm PO BID 03/02/20 [History Last Taken 04/04/20] furosemide 40 mg PO DAILY #0 03/06/20 [Rx Last Taken 04/04/20] pantoprazole 40 mg PO BID 03/06/20 [History Last Taken 04/04/20] tamsulosin 0.4 mg PO DAILY@1730 03/06/20 [History Last Taken 04/03/20] Iron Polysaccharide Complex [Ferrex 150] 150 mg PO DAILY 04/01/20 [History Last Taken 04/04/20] cyanocobalamin (vitamin B-12) 1,000 mcg IJ MOWEFR 04/01/20 [History Last Taken 04/03/20] lactulose 20 gm PO DAILY 04/01/20 [History Last Taken 04/04/20] nystatin 15 gm TP BID 04/01/20 [History Last Taken 04/04/20] Mineral Oil/Petrolatum,White [Eucerin] 1 applic TOPICAL 0600,2200 jar 04/06/20 [Rx Last Taken Unknown] acetaminophen 1,000 mg PO Q6H PRN PRN tab 04/06/20 [Rx Last Taken Unknown] bisacodyl 10 mg RECTAL DAILY PRN suppos. 04/06/20 [Rx Last Taken Unknown] menthol-zinc oxide 1 applic TOPICAL 0600,2200 tube 04/06/20 [Rx Last Taken Unknown] nut.tx.gluc intol,lf,soy-fiber 120 ml PO 4X/DAY liquid 04/06/20 [Rx Last Taken Unknown] sennosides-docusate sodium 1 tab PO BID tab 04/06/20 [Rx Last Taken Unknown] Allergy/AdvReac Type Severity Reaction Status Date / Time amoxicillin [From Augmentin] Allergy PT UNSURE Verified 06/17/20 12:11 OF REACTION clavulanic acid Allergy PT UNSURE Verified 06/17/20 12:11 [From Augmentin] OF REACTION Iodinated Contrast Media Allergy Anaphylaxis Verified 06/17/20 12:11 [DYEE] levofloxacin [From Levaquin] Allergy Upset Verified 06/17/20 12:11 Stomach loratadine [From Claritin] Allergy PT UNSURE Verified 06/17/20 12:11 OF REACTION hydrocodone bitartrate AdvReac Nausea/Vom/ Verified 06/17/20 12:11 [From Vicodin] Diarrhea iodine AdvReac Nausea/Vom/ Verified 06/17/20 12:11 Diarrhea Family History (System 06/17/20 @ 12:11 by Milla Chen) Mother Arthritis Surgical History History of appendectomy History of cataract extraction History of cholecystectomy History of hernia repair History of open heart surgery History of tonsillectomy Social History (System 06/17/20 @ 12:11 by Milla Chen) Smoking Status: Never smoker ROS <JAYRO Castillo - Last Filed: 11/26/21 15:02> ROS ED ROS Narrative Constitutional: Negative for fever, chills, weight loss. Positive for intermittent weakness Eyes: Negative for vision loss, vision change, double vision ENT: Negative for any sore throat, ear pain, congestion Cardiovascular: Negative for any chest pain, tightness, palpitations, racing heartbeat Respiratory: Negative for any hemoptysis, shortness of breath, shortness of breath on exertion, orthopnea. Positive for cough, sputum production Gastrointestinal: Negative for any abdominal pain, nausea, vomiting, diarrhea, constipation, blood in stool, blood in vomit : Negative for any urinary frequency, incontinence, dysuria, retention, blood in urine Muscle skeletal: Negative for any muscle joint pain, stiffness, myalgias, arthralgias, neck pain, back pain Neurological: Negative for any headache, dizziness, syncope, numbness or tingling Skin: Negative for any rashes, lumps, itching, abrasions, lacerations Psychiatric: Negative for any depression, anxiety, stress, suicidal ideation, homicidal ideation Hematologic: Negative for any easy bruising, excessive bruising, easy bleeding Allergies: Negative for any eczema, hives, rash EXAM <JAYRO Castillo - Last Filed: 11/26/21 15:02> Physical Exam Narrative Exam Narrative: Vital signs reviewed. Patient was decreased to 3 L nasal cannula, patient is maintaining an oxygen saturation of 95%. Patient is alert and oriented x4, appears nontoxic. HEET: Head normocephalic atraumatic, TMs clear bilaterally. Posterior pharynx is clear, moist mucous membranes. Nares clear bilaterally. Neck: Supple with no lymphadenopathy or tenderness. No signs of meningismus, negative jolt sign. Cardiac: Regular rate and rhythm no murmurs gallops or rubs, equal peripheral pulses bilaterally. Respiratory: Pulmonary exam shows rhonchorous breath sounds throughout the lower lobes. No chest tenderness. Abdomen: Soft, nontender, nondistended. No abdominal bruit or pulsatile masses. No hepatosplenomegaly Extremities: No peripheral edema, no signs of gross trauma or deformity. Active full range of motion of all extremities. Neuro: Cranial nerves II through XII intact, no focal neurological deficits. Skin: Clean dry and intact with no rash, purpura, petechiae, vesicles or pustules. Backslash flank: No CVA tenderness, no midline spinal tenderness, no deformity. Psych: Normal mood and affect. No SI, HI or acute psychosis. Const Vital Signs: 11/26/21 13:21 11/26/21 13:23 11/26/21 14:01 Temperature 98.4 F 98.4 F Temperature Source Temporal Temporal Pulse Rate 75 75 Respiratory Rate 16 18 Respiratory Effort Short of Breath Respiratory Pattern Normal Blood Pressure 145/60 H 145/60 H Blood Pressure Mean 88 88 Pulse Ox 100 100 Oxygen Delivery Method Nasal Cannula Nasal Cannula Nasal Cannula Oxygen Flow Rate (L/min) 6 6 6 11/26/21 14:35 Temperature 98.4 F Temperature Source Temporal Pulse Rate 72 Respiratory Rate 18 Respiratory Effort Respiratory Pattern Blood Pressure 136/63 H Blood Pressure Mean 87 Pulse Ox 99 Oxygen Delivery Method Nasal Cannula Oxygen Flow Rate (L/min) 6 Positive well nourished, well developed and obese General Appearance ED: well developed Nutritional Appearance: obese <Dr. Jordan Gomez MD - Last Filed: 11/26/21 18:15> Physical Exam Const Vital Signs: 11/26/21 13:21 11/26/21 13:23 11/26/21 14:01 Temperature 98.4 F 98.4 F Temperature Source Temporal Temporal Pulse Rate 75 75 Respiratory Rate 16 18 Respiratory Effort Short of Breath Respiratory Pattern Normal Blood Pressure 145/60 H 145/60 H Blood Pressure Mean 88 88 Pulse Ox 100 100 Oxygen Delivery Method Nasal Cannula Nasal Cannula Nasal Cannula Oxygen Flow Rate (L/min) 6 6 6 11/26/21 14:35 Temperature 98.4 F Temperature Source Temporal Pulse Rate 72 Respiratory Rate 18 Respiratory Effort Respiratory Pattern Blood Pressure 136/63 H Blood Pressure Mean 87 Pulse Ox 99 Oxygen Delivery Method Nasal Cannula Oxygen Flow Rate (L/min) 6 MDM <JAYRO Castillo - Last Filed: 11/26/21 15:02> [facility] MDM Narrative Medical decision making narrative: Patient appears well, patient appears nontoxic, vital signs are stable. Patient presents to the emergency department from an extended care facility for elevation in her BUN, ammonia level, patient also was diagnosed with pneumonia. Patient is in no distress, patient was on 6 L, I dropped her down to 3 L nasal cannula, patient remains around 98 to 99% blood oxygen level. Patient did receive basic laboratory values, patient's CBC was unremarkable, patient's chemistries did show an improvement of BUN which was 38, as well as a creatinine of 1.36, yesterday it showed that it was close to 2. Patient also received a repeat ammonia level this was 24 which within normal limits. I believe that the one from yesterday was 40. Patient is alert and orient x4, patient appears well. Patient did receive a chest x-ray, this showed small left pleural effusion with left basilar infiltration and/or atelectasis. Patient is currently taking azithromycin at the skilled nursing. At this time, I do not believe the patient is any renal failure, patient ammonia was negative, patient's chest x-ray showed a possible infiltrate however patient is currently being treated. At this time, patient is stable for return to her extended care facility Lab Data Attestation: I reviewed the patient's lab results. Labs: Laboratory Results - last 24 hr 11/26/21 11/26/21 11/26/21 13:25 13:25 13:25 WBC 4.5 RBC 3.58 L Hgb 10.8 L Hct 33.5 L MCV 93.6 MCH 30.2 MCHC 32.2 RDW Std Deviation 44.1 H RDW Coeff of [place] 12.9 Plt Count 188 MPV 10.7 Immature Gran % (Auto) 0.200 Neut % (Auto) 44.5 L Lymph % (Auto) 36.6 [place] % (Auto) 14.7 H Eos % (Auto) 3.1 Baso % (Auto) 0.9 Absolute Neuts (auto) 2.0 Absolute Lymphs (auto) 1.64 Nucleated RBC % 0 Sodium 143 Potassium 4.1 Chloride 106 Carbon Dioxide 35.0 H Anion Gap 2 L BUN 38 H Creatinine 1.36 H Estim Creat Clear Calc 30.18 Est GFR (MDRD) Af Amer 48 L Est GFR (MDRD) Non-Af 40 L BUN/Creatinine Ratio 27.9 H Glucose 118 H Calcium 8.4 L Total Bilirubin 0.60 Direct Bilirubin 0.28 AST 43 H ALT 27 Alkaline Phosphatase 85 Ammonia 24.0 Total Protein 6.6 Albumin 2.6 L Globulin 4.0 Lipase 70 L Radiography Chest X-Ray - ED: 1 View Diagnostic Testing: Clinical Impression(s) from Imaging Studies Chest X-Ray 11/26/21 13:40 IMPRESSION: Stable small left pleural effusion with left basilar infiltration and/or atelectasis. Electronically Signed: Wiliam Hernandez MD at 14:36 EDT , <Dr. Jordan Gomez MD - Last Filed: 11/26/21 18:15> MDM MDM Narrative Medical decision making narrative: I have personally performed a face to face assessment of the patient and have reviewed the AMADOU Note. I performed a subs tantive portion of the visit including all aspects of the following. My linares findings include: Patient was seen by me. She is recently being treated for pneumonia as she continues to be treated. Apparently they are worried about increase in BUN and creatinine however I looked at it this was 2 days ago and now her creatinine and BUN are back to baseline. She can be safely discharged home. Continued treatment with antibiotics Lab Data Labs: Laboratory Results - last 24 hr 11/26/21 11/26/21 11/26/21 13:25 13:25 13:25 WBC 4.5 RBC 3.58 L Hgb 10.8 L Hct 33.5 L MCV 93.6 MCH 30.2 MCHC 32.2 RDW Std Deviation 44.1 H RDW Coeff of [place] 12.9 Plt Count 188 MPV 10.7 Immature Gran % (Auto) 0.200 Neut % (Auto) 44.5 L Lymph % (Auto) 36.6 [place] % (Auto) 14.7 H Eos % (Auto) 3.1 Baso % (Auto) 0.9 Absolute Neuts (auto) 2.0 Absolute Lymphs (auto) 1.64 Nucleated RBC % 0 Sodium 143 Potassium 4.1 Chloride 106 Carbon Dioxide 35.0 H Anion Gap 2 L BUN 38 H Creatinine 1.36 H Estim Creat Clear Calc 30.18 Est GFR (MDRD) Af Amer 48 L Est GFR (MDRD) Non-Af 40 L BUN/Creatinine Ratio 27.9 H Glucose 118 H Calcium 8.4 L Total Bilirubin 0.60 Direct Bilirubin 0.28 AST 43 H ALT 27 Alkaline Phosphatase 85 Ammonia 24.0 Total Protein 6.6 Albumin 2.6 L Globulin 4.0 Lipase 70 L Radiography Diagnostic Testing: Clinical Impression(s) from Imaging Studies Chest X-Ray 11/26/21 13:40 IMPRESSION: Stable small left pleural effusion with left basilar infiltration and/or atelectasis. Electronically Signed: Wiliam Hernandez MD at 14:36 EDT , Discharge Plan Triage Chief Complaint: Abn Labs ED Midlevel Provider: Jordan Connor ED Provider: Jordan Gomez Dx/Rx/DC Orders Clinical Impression: Dehydration, Pneumonia Instructions: Dehydration, ED Pneumonia (Adult) Prescriptions: No Action atorvastatin 80 MG tablet 80 mg PO QHS RF: 0 polyethylene glycol 3350 17 GM powder in packet 17 gm PO BID RF: 0 metoprolol succinate 50 MG tablet extended release 24 hr 25 mg PO DAILY RF: 0 ondansetron HCl 4 MG tablet 4 mg PO Q6H PRN PRN (Reason: Nausea/Vomiting) RF: 0 isosorbide mononitrate 30 MG tablet extended release 24 hr 30 mg PO DAILY RF: 0 melatonin 3 MG tablet 6 mg PO QHS RF: 0 aspirin 81 MG tablet 81 mg PO DAILY@0800 RF: 0 losartan 25 MG tablet 25 mg PO DAILY RF: 0 insulin lispro 100 UNIT/ML insulin pen 5 unit SQ TID RF: 0 insulin detemir U-100 100 UNIT/ML insulin pen 35 unit SQ DAILY RF: 0 anastrozole 1 MG tablet 1 mg PO DAILY RF: 0 furosemide 40 MG tablet 40 mg PO DAILY Qty: 0 RF: 0 tamsulosin 0.4 MG capsule 0.4 mg PO DAILY@1730 RF: 0 pantoprazole 40 MG tablet 40 mg PO BID RF: 0 cyanocobalamin (vitamin B-12) 1,000 MCG/ML solution 1,000 mcg IJ MOWEFR RF: 0 nystatin 15 GM powder 15 gm TP BID RF: 0 lactulose 20 GM/30 ML solution 20 gm PO DAILY RF: 0 Iron Polysaccharide Complex [Ferrex 150] 150 MG capsule 150 mg PO DAILY RF: 0 sennosides-docusate sodium 1 TABLET tablet 1 tab PO BID RF: 0 acetaminophen 500 MG tablet 1,000 mg PO Q6H PRN PRN (Reason: Pain Score 1-10/10) RF: 0 bisacodyl 10 MG suppository 10 mg RECTAL DAILY PRN (Reason: Constipation) RF: 0 nut.tx.gluc intol,lf,soy-fiber 120 ML liquid 120 ml PO 4X/DAY RF: 0 menthol-zinc oxide 1 APPLIC ointment 1 applic topical 0600,2200 RF: 0 Mineral Oil/Petrolatum,White [Eucerin] 1 APPLIC Jar 1 applic topical 0600,2200 RF: 0 Primary Care Provider: Jordan Shelton Referrals: Jordan Shelton MD [Primary Care Provider] - Activity Restrictions/Additional Instructions: Your renal function has markedly improved. Your ammonia level was negative. Please continue your azithromycin. Print Language: Latvian Disposition Disposition: Home, Self Care Discharge Date/Time: 11/26/21 15:45
--- NOTE | 2021-11-26 13:40 | RAD_ITS ---
STUDY: X-RAY CHEST REASON FOR EXAM: Female, 81 years old. Cough TECHNIQUE: Single AP portable view of the chest. COMPARISON: Comparison is made with prior examination dated 03/31/2020. FINDINGS: EKG electrodes are seen. Small left pleural effusion with left basilar atelectasis and/or infiltration. This is essentially unchanged. Sternal cerclage wires and vascular clips are present from a prior sternotomy and coronary artery bypass graft procedure (CABG). A left-sided dual-chamber pacemaker is seen. Normal mediastinum and renay. Normal visualized pulmonary arteries. There is atherosclerotic calcification of the aortic arch with tortuosity. Normal visualized thoracic spine. There is degenerative osteoarthritis of the bilateral shoulders. There is no demonstrated abnormality of the visualized soft tissue structures of the upper abdomen. RAD/Chest 1 View (Portable) IMPRESSION: Stable small left pleural effusion with left basilar infiltration and/or atelectasis. Electronically Signed: Wiliam Hernandez MD at 14:36 EDT ,
[2021-11-26 13:55] LABS: Absolute Lymphocyte Count 1.64 X10^3/uL (0.83-4.51); Basophil# 0.04 X10^3/uL; Basophil% 0.9 % (0-1); Eosinophil# 0.14 X10^3/uL; Eosinophils% 3.1 % (0-5); Hematocrit 33.5 % (37-47); Hemoglobin 10.8 g/dL (12.0-15.0); Lymphocyte # 1.64 X10^3/ul (0.83-4.51); Lymphocyte % 36.6 % (19-41); Mean Corp Hgb Conc 32.2 g/dL (32-36); Mean Corpuscular Hgb 30.2 pg (27.0-32.0); Mean Corpuscular Volume 93.6 fL (81-99); Mean Platelet Vol. 10.7 fl (6.2-12.0); Monocyte# 0.66 X10^3/uL; Monocyte% 14.7 % (0-10); NRBC Flagged by Analyzer 0 % (0-5); Neutrophil # 1.99 X10^3/uL (2.7-7.7); Neutrophil % 44.5 % (47-70); POSITIVE MORPHOLOGY YES; Platelet Count 188 K/mm3 (150-450); RBC Distribution Width CV 12.9 % (11.6-14.6); RBC Distribution Width SD 44.1 fl (35.1-43.9); Red Blood Count 3.58 M/mm3 (4.2-5.4); White Blood Count 4.5 K/mm3 (4.4-11.0)
[2021-11-26 14:01] LABS: Differential Indicated SCAN CRITERIA MET
[2021-11-26 14:10] LABS: AST(SGOT) 43 U/L (15-37); Alanine Aminotransfer ALT/SGPT 27 U/L (13-56); Albumin, Serum 2.6 g/dL (3.2-5.0); Alkaline Phosphatase 85 U/L (45-117); Anion Gap 2 (5-15); BUN 38 mg/dL (7-18); BUN/Creat Ratio 27.9 RATIO (10-20); Bilirubin, Direct 0.28 mg/dL (0.00-0.30); Calcium,Total 8.4 mg/dL (8.5-10.1); Chloride 106 mmol/L (98-107); Creatinine, Serum 1.36 mg/dL (0.55-1.02); EST Glomerular Filtration Rate 40 mL/min (>60); Est Glom Filt Rate - Afr Amer 48 mL/min (>60); Estimated Creatinine Clearance 30.18 ml/min; Glucose 118 mg/dL (74-106); Lipase 70 U/L (73-393); Potassium 4.1 mmol/L (3.5-5.1); Protein, Total 6.6 g/dL (6.4-8.2); Sodium Level 143 mmol/L (136-145)
[2021-11-26 14:35] VITALS: BP 136/63; PULSE 72; RESP 18; TEMP 36.9; O2SAT 99
== END 2021-11-26 15:45 | disposition home or self-care (01) ==
PROVIDERS: Nurse Practitioner; Emergency Provider Emergency Medicine; PCP Family Medicine; Visit Provider Emergency Medicine
DX: E86.0 Dehydration (principal); J18.9 Pneumonia, unspecified organism; E66.9 Obesity, unspecified; I25.10 Atherosclerotic heart disease of native coronary artery without angina pectoris; Z86.73 Personal history of transient ischemic attack (TIA), and cerebral infarction without residual deficits; Z95.0 Presence of cardiac pacemaker; Z79.899 Other long term (current) drug therapy
CPT/HCPCS: 71045; 80048; 80076; 82140; 83690; 85025; 99284; A4216

== ENCOUNTER → 2021-11-29 | Outpatient (REF) | payer MEDICARE, SELFPAY | END | disposition home or self-care (01) | LOC: OLS.SW500 04:00 | PROVIDERS: PCP Family Medicine; Referring Provider Family Medicine; Visit Provider Family Medicine | DX: K92.9 Disease of digestive system, unspecified (principal) | CPT/HCPCS: 36415; 82140 ==

== ENCOUNTER → 2021-12-07 | Outpatient (REF) | payer MEDICARE, MEDICAID, SELFPAY ==
[2021-12-07 07:55] LABS: Ammonia < 10.0 umol/L (11-32)
== END | disposition home or self-care (01) ==
LOC: OLS.SW500 07:15
PROVIDERS: PCP Family Medicine; Visit Provider Family Medicine
DX: Z00.00 Encounter for general adult medical examination without abnormal findings (principal)
CPT/HCPCS: 36415; 82140

== ENCOUNTER → 2021-12-09 | Outpatient (REF) | payer MEDICARE, SELFPAY ==
[2021-12-09 07:08] LABS: Mucous, Urine 0 SEEN /hpf (<or=2+)
[2021-12-09 07:24] LABS: Color, Urine Yellow (Yellow); Glucose, Dipstick 100 mg/dl (Normal); Ketone-Dipstick Negative (Negative); Leukocyte Esterase-Dipstick 500 /ul (Negative); Nitrite-Dipstick Positive (Negative); Occult Blood-Urine 25 /ul (Negative); Protein-Dipstick 30 mg/dl (Negative); Urine Bilirubin Dipstick Negative (Negative); Urine Clarity Sl. Cloudy (Clear); Urine Urobilinogen Normal (Normal); Urine pH 6.5 (5.0 - 8.0)
[2021-12-09 07:39] LABS: Bacteria 3+ /hpf (None Seen); Red Blood Cells-Urine 5-10 SEEN /hpf (0-5); Squamous Epithelial Cells - UA 5-10 SEEN /hpf (5-10); White Blood Cells 10-25 SEEN /hpf (0-5)
== END | disposition home or self-care (01) ==
LOC: OLS.SW500 03:00
PROVIDERS: PCP Family Medicine; Referring Provider Family Medicine; Visit Provider Family Medicine
DX: Z00.00 Encounter for general adult medical examination without abnormal findings (principal); R41.0 Disorientation, unspecified
CPT/HCPCS: 81001; 87077; 87086; 87088; 87186

== ENCOUNTER → 2021-12-20 | Outpatient (REF) | payer MEDICARE, SELFPAY ==
[2021-12-20 10:47] LABS: Absolute Lymphocyte Count 2.18 X10^3/uL (0.83-4.51); Absolute Neutrophil Count 3.1 X10^3/uL (2.0-7.7); Basophil# 0.05 X10^3/uL; Basophil% 0.8 % (0-1); Eosinophil# 0.48 X10^3/uL; Eosinophils% 7.5 % (0-5); Hemoglobin 9.7 g/dL (12.0-15.0); Lymphocyte # 2.18 X10^3/ul (0.83-4.51); Lymphocyte % 33.9 % (19-41); Mean Corp Hgb Conc 31.3 g/dL (32-36); Mean Corpuscular Hgb 29.4 pg (27.0-32.0); Mean Corpuscular Volume 93.9 fL (81-99); Mean Platelet Vol. 10.7 fl (6.2-12.0); Monocyte# 0.63 X10^3/uL; Monocyte% 9.8 % (0-10); NRBC Flagged by Analyzer 0 % (0-5); Neutrophil # 3.07 X10^3/uL (2.7-7.7); Neutrophil % 47.5 % (47-70); Platelet Count 225 K/mm3 (150-450); RBC Distribution Width CV 13.5 % (11.6-14.6); RBC Distribution Width SD 46.3 fl (35.1-43.9); White Blood Count 6.4 K/mm3 (4.4-11.0)
[2021-12-20 11:19] LABS: ALB/GLOB Ratio 0.7 RATIO (0.9-2.4); Albumin, Serum 2.5 g/dL (3.2-5.0); BUN 18 mg/dL (7-18); BUN/Creat Ratio 14.1 RATIO (10-20); Creatinine, Serum 1.28 mg/dL (0.55-1.02); EST Glomerular Filtration Rate 43 mL/min (>60); Est Glom Filt Rate - Afr Amer 52 mL/min (>60); Globulin 3.8 g/dL (2.2-4.2); Glucose 39 mg/dL (74-106); Protein, Total 6.3 g/dL (6.4-8.2)
[2021-12-20 11:20] LABS: AST(SGOT) 22 U/L (15-37); Alanine Aminotransfer ALT/SGPT 15 U/L (13-56); Alkaline Phosphatase 94 U/L (45-117); Anion Gap 5 (5-15); Calcium,Total 8.4 mg/dL (8.5-10.1); Chloride 108 mmol/L (98-107); Potassium 4.1 mmol/L (3.5-5.1); Sodium Level 143 mmol/L (136-145)
== END | disposition home or self-care (01) ==
LOC: OLS.SW500 04:00
PROVIDERS: PCP Family Medicine; Referring Provider Family Medicine; Visit Provider Family Medicine
DX: K92.2 Gastrointestinal hemorrhage, unspecified (principal)
CPT/HCPCS: 36415; 80053; 82140; 85025

== ENCOUNTER → 2022-01-18 | Outpatient (REF) | payer MEDICARE, SELFPAY ==
[2022-01-18 08:53] LABS: Absolute Neutrophil Count 4.5 X10^3/uL (2.0-7.7); Basophil# 0.06 X10^3/uL; Basophil% 0.8 % (0-1); Eosinophil# 0.52 X10^3/uL; Eosinophils% 7.2 % (0-5); Hematocrit 35.8 % (37-47); Hemoglobin 11.3 g/dL (12.0-15.0); Lymphocyte % 22.1 % (19-41); Mean Corp Hgb Conc 31.6 g/dL (32-36); Mean Corpuscular Hgb 29.7 pg (27.0-32.0); Mean Corpuscular Volume 94.2 fL (81-99); Mean Platelet Vol. 11.2 fl (6.2-12.0); Monocyte# 0.53 X10^3/uL; Monocyte% 7.3 % (0-10); NRBC Flagged by Analyzer 0 % (0-5); Neutrophil # 4.51 X10^3/uL (2.7-7.7); Neutrophil % 62.3 % (47-70); Platelet Count 250 K/mm3 (150-450); RBC Distribution Width CV 13.9 % (11.6-14.6); RBC Distribution Width SD 47.4 fl (35.1-43.9); White Blood Count 7.2 K/mm3 (4.4-11.0)
[2022-01-18 09:24] LABS: ALB/GLOB Ratio 0.8 RATIO (0.9-2.4); AST(SGOT) 20 U/L (15-37); Alanine Aminotransfer ALT/SGPT 20 U/L (13-56); Albumin, Serum 2.9 g/dL (3.2-5.0); Alkaline Phosphatase 104 U/L (45-117); Anion Gap 6 (5-15); BUN 22 mg/dL (7-18); BUN/Creat Ratio 15.2 RATIO (10-20); Chloride 106 mmol/L (98-107); Creatinine, Serum 1.45 mg/dL (0.55-1.02); EST Glomerular Filtration Rate 37 mL/min (>60); Est Glom Filt Rate - Afr Amer 45 mL/min (>60); Globulin 3.7 g/dL (2.2-4.2); Glucose 142 mg/dL (74-106); Protein, Total 6.6 g/dL (6.4-8.2); Sodium Level 142 mmol/L (136-145)
== END | disposition home or self-care (01) ==
LOC: OLS.SW500 04:00
PROVIDERS: PCP Family Medicine; Referring Provider Family Medicine; Visit Provider Family Medicine
DX: K92.2 Gastrointestinal hemorrhage, unspecified (principal)
CPT/HCPCS: 36415; 80053; 82140; 85025

== ENCOUNTER → 2022-01-31 | Outpatient (REF) | payer MEDICARE, SELFPAY ==
[2022-01-31 08:59] LABS: Cholesterol 145 mg/dL (200); High Density Lipoprotein 45 mg/dL; Triglycerides 89 mg/dL; Very Low Density Lipoprotein 18 mg/dL (5-40)
[2022-01-31 09:00] LABS: Vitamin B12 280 pg/mL (211-911)
== END | disposition home or self-care (01) ==
LOC: OLS.SW500 04:00
PROVIDERS: PCP Family Medicine; Referring Provider Family Medicine; Visit Provider Family Medicine
DX: E78.5 Hyperlipidemia, unspecified (principal); E11.9 Type 2 diabetes mellitus without complications; D51.9 Vitamin B12 deficiency anemia, unspecified
CPT/HCPCS: 36415; 80061; 82607; 83036

== ENCOUNTER → 2022-02-15 | Outpatient (REF) | payer MEDICARE, MEDICAID, SELFPAY ==
[2022-02-15 08:30] LABS: Absolute Lymphocyte Count 1.86 X10^3/uL (0.83-4.51); Absolute Neutrophil Count 4.4 X10^3/uL (2.0-7.7); Basophil# 0.07 X10^3/uL; Basophil% 0.9 % (0-1); Eosinophil# 0.57 X10^3/uL; Eosinophils% 7.6 % (0-5); Hematocrit 37.9 % (37-47); Hemoglobin 11.8 g/dL (12.0-15.0); Lymphocyte # 1.86 X10^3/ul (0.83-4.51); Lymphocyte % 24.9 % (19-41); Mean Corp Hgb Conc 31.1 g/dL (32-36); Mean Corpuscular Hgb 29.3 pg (27.0-32.0); Monocyte# 0.57 X10^3/uL; Monocyte% 7.6 % (0-10); NRBC Flagged by Analyzer 0 % (0-5); Neutrophil # 4.36 X10^3/uL (2.7-7.7); Neutrophil % 58.6 % (47-70); Platelet Count 257 K/mm3 (150-450); RBC Distribution Width CV 13.6 % (11.6-14.6); RBC Distribution Width SD 46.8 fl (35.1-43.9); Red Blood Count 4.03 M/mm3 (4.2-5.4); White Blood Count 7.5 K/mm3 (4.4-11.0)
[2022-02-15 08:41] LABS: ALB/GLOB Ratio 0.8 RATIO (0.9-2.4); AST(SGOT) 22 U/L (15-37); Alanine Aminotransfer ALT/SGPT 18 U/L (13-56); Albumin, Serum 3.2 g/dL (3.2-5.0); Alkaline Phosphatase 116 U/L (45-117); Anion Gap 4 (5-15); BUN 22 mg/dL (7-18); BUN/Creat Ratio 15.3 RATIO (10-20); Calcium,Total 9.4 mg/dL (8.5-10.1); Chloride 108 mmol/L (98-107); Creatinine, Serum 1.44 mg/dL (0.55-1.02); EST Glomerular Filtration Rate 37 mL/min (>60); Est Glom Filt Rate - Afr Amer 45 mL/min (>60); Globulin 3.9 g/dL (2.2-4.2); Glucose 118 mg/dL (74-106); Potassium 4.4 mmol/L (3.5-5.1); Protein, Total 7.1 g/dL (6.4-8.2); Sodium Level 144 mmol/L (136-145)
== END | disposition home or self-care (01) ==
LOC: OLS.SW500 07:15
PROVIDERS: PCP Family Medicine; Visit Provider Family Medicine
DX: K92.2 Gastrointestinal hemorrhage, unspecified (principal)
CPT/HCPCS: 36415; 80053; 82140; 85025

== ENCOUNTER → 2022-03-15 | Outpatient (REF) | payer MEDICARE, MEDICAID, SELFPAY ==
[2022-03-15 09:04] LABS: Absolute Lymphocyte Count 1.88 X10^3/uL (0.83-4.51); Absolute Neutrophil Count 5.3 X10^3/uL (2.0-7.7); Basophil# 0.07 X10^3/uL; Basophil% 0.8 % (0-1); Eosinophil# 0.64 X10^3/uL; Eosinophils% 7.4 % (0-5); Hematocrit 36.4 % (37-47); Hemoglobin 11.5 g/dL (12.0-15.0); Lymphocyte # 1.88 X10^3/ul (0.83-4.51); Lymphocyte % 21.7 % (19-41); Mean Corp Hgb Conc 31.6 g/dL (32-36); Mean Corpuscular Hgb 29.3 pg (27.0-32.0); Mean Corpuscular Volume 92.9 fL (81-99); Mean Platelet Vol. 11.1 fl (6.2-12.0); Monocyte# 0.68 X10^3/uL; Monocyte% 7.9 % (0-10); NRBC Flagged by Analyzer 0 % (0-5); Neutrophil # 5.34 X10^3/uL (2.7-7.7); Neutrophil % 61.7 % (47-70); Platelet Count 250 K/mm3 (150-450); RBC Distribution Width CV 13.5 % (11.6-14.6); RBC Distribution Width SD 45.5 fl (35.1-43.9); Red Blood Count 3.92 M/mm3 (4.2-5.4); White Blood Count 8.7 K/mm3 (4.4-11.0)
[2022-03-15 09:25] LABS: ALB/GLOB Ratio 0.8 RATIO (0.9-2.4); AST(SGOT) 21 U/L (15-37); Alanine Aminotransfer ALT/SGPT 17 U/L (13-56); Albumin, Serum 3.1 g/dL (3.2-5.0); Alkaline Phosphatase 110 U/L (45-117); Anion Gap 4 (5-15); BUN 24 mg/dL (7-18); BUN/Creat Ratio 15.4 RATIO (10-20); Calcium,Total 9.2 mg/dL (8.5-10.1); Chloride 106 mmol/L (98-107); Creatinine, Serum 1.56 mg/dL (0.55-1.02); EST Glomerular Filtration Rate 34 mL/min (>60); Est Glom Filt Rate - Afr Amer 41 mL/min (>60); Glucose 81 mg/dL (74-106); Potassium 4.4 mmol/L (3.5-5.1); Protein, Total 7.1 g/dL (6.4-8.2); Sodium Level 143 mmol/L (136-145)
== END | disposition home or self-care (01) ==
LOC: OLS.SW500 05:00
PROVIDERS: PCP Family Medicine; Visit Provider Family Medicine
DX: K92.2 Gastrointestinal hemorrhage, unspecified (principal)
CPT/HCPCS: 36415; 80053; 82140; 85025

== ENCOUNTER → 2022-04-12 | Outpatient (REF) | payer MEDICARE, MEDICAID, SELFPAY ==
[2022-04-12 08:20] LABS: Absolute Lymphocyte Count 2.36 X10^3/uL (0.83-4.51); Basophil# 0.08 X10^3/uL; Eosinophil# 0.68 X10^3/uL; Eosinophils% 8.6 % (0-5); Hematocrit 32.4 % (37-47); Hemoglobin 10.9 g/dL (12.0-15.0); Lymphocyte # 2.36 X10^3/ul (0.83-4.51); Mean Corp Hgb Conc 33.6 g/dL (32-36); Mean Corpuscular Hgb 32.2 pg (27.0-32.0); Mean Corpuscular Volume 95.6 fL (81-99); Mean Platelet Vol. 10.5 fl (6.2-12.0); Monocyte# 0.69 X10^3/uL; Monocyte% 8.8 % (0-10); NRBC Flagged by Analyzer 0 % (0-5); Neutrophil # 4.02 X10^3/uL (2.7-7.7); Neutrophil % 51.1 % (47-70); Platelet Count 242 K/mm3 (150-450); RBC Distribution Width CV 13.6 % (11.6-14.6); RBC Distribution Width SD 45.6 fl (35.1-43.9); Red Blood Count 3.39 M/mm3 (4.2-5.4); White Blood Count 7.9 K/mm3 (4.4-11.0)
[2022-04-12 08:42] LABS: ALB/GLOB Ratio 0.7 RATIO (0.9-2.4); AST(SGOT) 20 U/L (15-37); Alanine Aminotransfer ALT/SGPT 19 U/L (13-56); Albumin, Serum 2.8 g/dL (3.2-5.0); Alkaline Phosphatase 108 U/L (45-117); Anion Gap 5 (5-15); BUN 22 mg/dL (7-18); BUN/Creat Ratio 13.8 RATIO (10-20); Calcium,Total 8.9 mg/dL (8.5-10.1); Chloride 110 mmol/L (98-107); EST Glomerular Filtration Rate 33 mL/min (>60); Est Glom Filt Rate - Afr Amer 40 mL/min (>60); Globulin 3.8 g/dL (2.2-4.2); Glucose 95 mg/dL (74-106); Potassium 4.4 mmol/L (3.5-5.1); Protein, Total 6.6 g/dL (6.4-8.2); Sodium Level 145 mmol/L (136-145)
== END ==
LOC: OLS.SW500 05:00
PROVIDERS: PCP Family Medicine; Visit Provider Family Medicine
DX: K92.2 Gastrointestinal hemorrhage, unspecified (principal)
CPT/HCPCS: 36415; 80053; 82140; 85025

== ENCOUNTER → 2022-04-28 | Outpatient (REF) | payer MEDICARE, MEDICAID, SELFPAY ==
[2022-04-28 07:45] LABS: Anion Gap 6 (5-15); BUN 28 mg/dL (7-18); BUN/Creat Ratio 15.9 RATIO (10-20); Calcium,Total 8.9 mg/dL (8.5-10.1); Chloride 108 mmol/L (98-107); Creatinine, Serum 1.76 mg/dL (0.55-1.02); EST Glomerular Filtration Rate 30 mL/min (>60); Est Glom Filt Rate - Afr Amer 36 mL/min (>60); Glucose 82 mg/dL (74-106); Potassium 4.4 mmol/L (3.5-5.1); Sodium Level 145 mmol/L (136-145)
== END ==
LOC: OLS.SW500 05:00
PROVIDERS: PCP Family Medicine; Visit Provider Family Medicine
DX: Z79.899 Other long term (current) drug therapy (principal)
CPT/HCPCS: 36415; 80048

== ENCOUNTER → 2022-05-02 | Outpatient (REF) | payer MEDICARE, MEDICAID, SELFPAY ==
[2022-05-02 08:47] LABS: Vitamin B12 320 pg/mL (211-911)
[2022-05-02 08:49] LABS: Cholesterol 119 mg/dL (200); Hemoglobin A1c 7.5 % (3.8-5.6); High Density Lipoprotein 42 mg/dL; Triglycerides 85 mg/dL; Very Low Density Lipoprotein 17 mg/dL (5-40)
== END ==
LOC: OLS.SW500 05:00
PROVIDERS: PCP Family Medicine; Visit Provider Family Medicine
DX: E11.9 Type 2 diabetes mellitus without complications (principal); D64.9 Anemia, unspecified; E53.8 Deficiency of other specified B group vitamins
CPT/HCPCS: 36415; 80061; 82607; 83036

== ENCOUNTER → 2022-05-10 | Outpatient (REF) | payer MEDICARE, MEDICAID, SELFPAY ==
[2022-05-10 08:23] LABS: Basophil# 0.09 X10^3/uL; Basophil% 1.2 % (0-1); Eosinophil# 0.62 X10^3/uL; Eosinophils% 8.3 % (0-5); Hematocrit 33.9 % (37-47); Hemoglobin 11.1 g/dL (12.0-15.0); Lymphocyte % 28.2 % (19-41); Mean Corp Hgb Conc 32.7 g/dL (32-36); Mean Corpuscular Hgb 31.1 pg (27.0-32.0); Mean Platelet Vol. 10.3 fl (6.2-12.0); Monocyte# 0.55 X10^3/uL; Monocyte% 7.4 % (0-10); NRBC Flagged by Analyzer 0 % (0-5); Neutrophil # 4.02 X10^3/uL (2.7-7.7); Neutrophil % 54.1 % (47-70); Platelet Count 292 K/mm3 (150-450); RBC Distribution Width CV 13.2 % (11.6-14.6); Red Blood Count 3.57 M/mm3 (4.2-5.4); White Blood Count 7.4 K/mm3 (4.4-11.0)
[2022-05-10 08:36] LABS: ALB/GLOB Ratio 0.7 RATIO (0.9-2.4); AST(SGOT) 20 U/L (15-37); Alanine Aminotransfer ALT/SGPT 17 U/L (13-56); Albumin, Serum 2.8 g/dL (3.2-5.0); Alkaline Phosphatase 117 U/L (45-117); Anion Gap 8 (5-15); BUN 16 mg/dL (7-18); BUN/Creat Ratio 12.1 RATIO (10-20); Calcium,Total 9.1 mg/dL (8.5-10.1); Chloride 105 mmol/L (98-107); Creatinine, Serum 1.32 mg/dL (0.55-1.02); EST Glomerular Filtration Rate 41 mL/min (>60); Est Glom Filt Rate - Afr Amer 50 mL/min (>60); Globulin 4.1 g/dL (2.2-4.2); Glucose 126 mg/dL (74-106); Potassium 4.5 mmol/L (3.5-5.1); Protein, Total 6.9 g/dL (6.4-8.2); Sodium Level 142 mmol/L (136-145)
== END ==
LOC: OLS.SW500 05:00
PROVIDERS: PCP Family Medicine; Visit Provider Family Medicine
DX: K92.2 Gastrointestinal hemorrhage, unspecified (principal)
CPT/HCPCS: 36415; 80053; 82140; 85025

== ENCOUNTER → 2022-06-07 | Outpatient (REF) | payer MEDICARE, MEDICAID, SELFPAY ==
[2022-06-07 08:47] LABS: Ammonia < 10.0 umol/L (11-32)
[2022-06-07 09:18] LABS: Absolute Lymphocyte Count 2.22 X10^3/uL (0.83-4.51); Absolute Neutrophil Count 4.9 X10^3/uL (2.0-7.7); Basophil# 0.08 X10^3/uL; Basophil% 0.9 % (0-1); Eosinophil# 0.66 X10^3/uL; Eosinophils% 7.7 % (0-5); Hematocrit 37.2 % (37-47); Hemoglobin 11.6 g/dL (12.0-15.0); Lymphocyte # 2.22 X10^3/ul (0.83-4.51); Lymphocyte % 25.9 % (19-41); Mean Corp Hgb Conc 31.2 g/dL (32-36); Mean Corpuscular Hgb 29.2 pg (27.0-32.0); Mean Corpuscular Volume 93.7 fL (81-99); Mean Platelet Vol. 10.9 fl (6.2-12.0); Monocyte# 0.65 X10^3/uL; Monocyte% 7.6 % (0-10); NRBC Flagged by Analyzer 0 % (0-5); Neutrophil # 4.94 X10^3/uL (2.7-7.7); Neutrophil % 57.6 % (47-70); Platelet Count 242 K/mm3 (150-450); RBC Distribution Width CV 13.2 % (11.6-14.6); RBC Distribution Width SD 45.1 fl (35.1-43.9); Red Blood Count 3.97 M/mm3 (4.2-5.4); White Blood Count 8.6 K/mm3 (4.4-11.0)
[2022-06-07 09:37] LABS: ALB/GLOB Ratio 0.8 RATIO (0.9-2.4); AST(SGOT) 18 U/L (15-37); Alanine Aminotransfer ALT/SGPT 18 U/L (13-56); Albumin, Serum 3.1 g/dL (3.2-5.0); Alkaline Phosphatase 122 U/L (45-117); Anion Gap 5 (5-15); BUN 25 mg/dL (7-18); BUN/Creat Ratio 16.7 RATIO (10-20); Calcium,Total 9.3 mg/dL (8.5-10.1); Chloride 104 mmol/L (98-107); EST Glomerular Filtration Rate 36 mL/min (>60); Est Glom Filt Rate - Afr Amer 43 mL/min (>60); Globulin 3.9 g/dL (2.2-4.2); Glucose 158 mg/dL (74-106); Potassium 4.5 mmol/L (3.5-5.1); Sodium Level 140 mmol/L (136-145)
== END ==
LOC: OLS.SW500 05:00
PROVIDERS: PCP Family Medicine; Visit Provider Family Medicine
DX: K92.2 Gastrointestinal hemorrhage, unspecified (principal)
CPT/HCPCS: 36415; 80053; 82140; 85025

== ENCOUNTER → 2022-07-05 | Outpatient (REF) | payer MEDICARE, MEDICAID, SELFPAY ==
[2022-07-05 08:08] LABS: Absolute Neutrophil Count 3.8 X10^3/uL (2.0-7.7); Basophil# 0.07 X10^3/uL; Eosinophil# 0.43 X10^3/uL; Eosinophils% 6.1 % (0-5); Hematocrit 33.2 % (37-47); Hemoglobin 10.7 g/dL (12.0-15.0); Lymphocyte % 29.9 % (19-41); Mean Corp Hgb Conc 32.2 g/dL (32-36); Mean Corpuscular Hgb 30.6 pg (27.0-32.0); Mean Corpuscular Volume 94.9 fL (81-99); Mean Platelet Vol. 10.7 fl (6.2-12.0); Monocyte% 8.5 % (0-10); NRBC Flagged by Analyzer 0 % (0-5); Neutrophil # 3.79 X10^3/uL (2.7-7.7); Neutrophil % 53.9 % (47-70); Platelet Count 224 K/mm3 (150-450); RBC Distribution Width CV 13.4 % (11.6-14.6)
[2022-07-05 08:19] LABS: ALB/GLOB Ratio 0.7 RATIO (0.9-2.4); AST(SGOT) 18 U/L (15-37); Alanine Aminotransfer ALT/SGPT 18 U/L (13-56); Albumin, Serum 2.6 g/dL (3.2-5.0); Alkaline Phosphatase 100 U/L (45-117); Anion Gap 4 (5-15); BUN 27 mg/dL (7-18); BUN/Creat Ratio 15.9 RATIO (10-20); Calcium,Total 8.7 mg/dL (8.5-10.1); Chloride 108 mmol/L (98-107); EST Glomerular Filtration Rate 31 mL/min (>60); Est Glom Filt Rate - Afr Amer 37 mL/min (>60); Globulin 3.8 g/dL (2.2-4.2); Glucose 91 mg/dL (74-106); Potassium 4.5 mmol/L (3.5-5.1); Protein, Total 6.4 g/dL (6.4-8.2); Sodium Level 144 mmol/L (136-145)
== END ==
LOC: OLS.SW 05:00
PROVIDERS: PCP Family Medicine; Visit Provider Family Medicine
DX: K92.2 Gastrointestinal hemorrhage, unspecified (principal)
CPT/HCPCS: 36415; 80053; 82140; 85025

== ENCOUNTER 2022-07-29 08:06 | Emergency (ER) | payer MEDICARE, MEDICAID, SELFPAY ==
[2022-07-29 08:07] VITALS: BP 191/69; PULSE 60; RESP 16; TEMP 36.8; O2SAT 95; BMI 36.4
--- NOTE | 2022-07-29 08:09 | RAD_ITS ---
STUDY: X-RAY - PELVIS AND LEFT HIP REASON FOR EXAM: Female, 82 years old. Left hip pain following a fall. TECHNIQUE: 3 views of the pelvis and hip. COMPARISON: None. FINDINGS: There is a non-specific bowel gas pattern. There are atherosclerotic vascular calcifications of the pelvic arteries. There is narrowing with cortical sclerosis and osteophyte formation of the sacroiliac joint consistent with degenerative osteoarthritic changes. Nondisplaced fracture along the lateral aspect of the left superior pubic ramus as well as the left inferior pubic ramus. Normal pubic symphysis. Normal bilateral ischial tuberosities. Normal visualized femoral head. There is osteoarthritic spur formation of the acetabular rim. There is moderate articular joint space narrowing of the hip. RAD/HIP, UNI W/ Pelvis 2-3 Views IMPRESSION: Nondisplaced fracture of the left superior and inferior pubic rami. Electronically Signed: Wiliam Hernandez MD at 8:58 EST ,
--- NOTE | 2022-07-29 08:09 | CT_ITS ---
STUDY: CT BRAIN WITHOUT CONTRAST REASON FOR EXAM: Female, 82 years old. An injury due to a fall. RADIATION DOSAGE (If Supplied By Facility): CTDIvol = ( 44.99 ) mGy, DLP = ( 765.18 ) mGycm TECHNIQUE: Transaxial CT imaging of the brain was performed without administration of intravenous contrast material. Individualized dose optimization techniques were used for this CT. COMPARISON: Comparison is made with prior study 03/31/2020. FINDINGS: Normal soft tissue structures. Normal calvarium. There is mild cerebral atrophy with widening of the extra-axial spaces and ventricular dilatation. There are areas of decreased attenuation within the white matter tracts of the supratentorial brain, consistent with microvascular disease changes. There are small punctate calcifications of the basal ganglia which are seen in the aging brain as a normal variant. Normal brainstem. Normal cerebellum. There is no intracranial hemorrhage. There are no findings of an acute ischemic infarction. Atherosclerotic calcification of the vertebral arteries and cavernous portions of the internal carotid arteries bilaterally. Normal visualized paranasal sinuses. Calcifications of the anterior globes bilaterally. CT/Brain/Head without Contrast IMPRESSION: Chronic involutional changes of the brain. Electronically Signed: Wiliam Hernandez MD at 8:57 EST ,
--- NOTE | 2022-07-29 08:10 | EDS_ITS ---
HPI History of Present Illness Chief Complaint: Lower Extremity Injury Informant: patient, EMS and SNF Narrative Narrative: 82-year-old female from [facility] presents the emergency room with left hip pain from fall. Patient was apparently using her walker to turn and pivot in the bathroom and her aide went to get her jacket she lost her balance and fell she states that she hit her left hip and the back of her head. No loss of consciousness. She states she was able to get up and bear weight but her hip was hurting. EMS notes no shortening or rotation. She is feels to have oxygen on and did not have oxygen on at the time of the fall. She has had prior stroke. She has a history of hypertension was noted to be hypertensive but she has states that she has not taken any of her medications today. She denies any back or neck pain. She notes from the knees down she feels fine. [facility] Medical History Cardiac defibrillator in place Diabetes mellitus heart cath Heart disease Left arm surgery Pacemaker Stroke Home Medications anastrozole 1 mg tablet 1 mg PO DAILY CANCER 03/02/20 [History Last Taken 04/04/20] aspirin 81 mg tablet,delayed release 81 mg PO DAILY@0800 HEART HEALTH 03/02/20 [History Last Taken 04/04/20] atorvastatin 80 mg tablet 80 mg PO QHS CHOLESTEROL 03/02/20 [History Last Taken 04/03/20] insulin detemir U-100 100 unit/mL (3 mL) subcutaneous pen 35 unit SQ DAILY DM 03/02/20 [History Last Taken 04/04/20] insulin lispro 100 unit/mL subcutaneous pen 5 unit SQ TID DM 03/02/20 [History Last Taken 04/04/20] isosorbide mononitrate 30 mg tablet,extended release 24 hr 30 mg PO DAILY BP 03/02/20 [History Last Taken 04/04/20] losartan 25 mg tablet 25 mg PO DAILY HTN 03/02/20 [History Last Taken 04/04/20] melatonin 3 mg tablet 6 mg PO QHS SLEEP 03/02/20 [History Last Taken 04/03/20] metoprolol succinate 50 mg tablet,extended release 24 hr 25 mg PO DAILY HEART 03/02/20 [History Last Taken 04/04/20] ondansetron HCl 4 mg tablet 4 mg PO Q6H PRN PRN Nausea/Vomiting 03/02/20 [History Last Taken 03/02/20] polyethylene glycol 3350 17 gram oral powder packet 17 gm PO BID CONSTIPATION 03/02/20 [History Last Taken 04/04/20] furosemide 40 mg tablet 40 mg PO DAILY FLUID ##0 03/06/20 [Rx Last Taken 04/04/20] pantoprazole 40 mg tablet,delayed release 20 mg PO BID Stomach acid 03/06/20 [History Last Taken 04/04/20] tamsulosin 0.4 mg capsule 0.4 mg PO DAILY@1730 Bladder 03/06/20 [History Last Taken 04/03/20] Iron Polysaccharide Complex [Ferrex 150] 150 mg PO DAILY supplement 04/01/20 [History Last Taken 04/04/20] cyanocobalamin (vitamin B-12) 1,000 mcg/mL injection solution 1,000 mcg IJ MOWEFR supplement 04/01/20 [History Last Taken 04/03/20] lactulose 20 gram/30 mL oral solution 20 gm PO DAILY Check with primary doctor 04/01/20 [History Last Taken 04/04/20] nystatin 100,000 unit/gram topical powder 15 gm TP BID Check with primary doctor 04/01/20 [History Last Taken 04/04/20] Mineral Oil/Petrolatum,White [Eucerin] 1 applic topical 0600,0 04/06/20 [Rx Last Taken Unknown] acetaminophen 500 mg tablet 1,000 mg PO Q6H PRN PRN Pain Score 1-10/10 04/06/20 [Rx Last Taken Unknown] bisacodyl 10 mg rectal suppository 10 mg RECTAL DAILY PRN Constipation 04/06/20 [Rx Last Taken Unknown] menthol 0.44 %-zinc oxide 20.6 % topical ointment 1 applic topical 0600,2200 04/06/20 [Rx Last Taken Unknown] nutrition tx glu intol,lac-free,soy-fiber 0.06 gram-1.2 kcal/mL liquid 120 ml PO 4X/DAY 04/06/20 [Rx Last Taken Unknown] sennosides 8.6 mg-docusate sodium 50 mg tablet 1 tab PO BID 04/06/20 [Rx Last Taken Unknown] cetirizine 5 mg tablet 5 mg PO DAILY 07/29/22 [History Last Taken Unknown] cilostazol 50 mg tablet 50 mg PO BID 07/29/22 [History Last Taken Unknown] fluoxetine 10 mg capsule 10 mg PO DAILY 07/29/22 [History Last Taken Unknown] insulin glargine 100 unit/mL (3 mL) subcutaneous pen (Lantus Solostar U-100 Insulin) 30 unit subcut BID 07/29/22 [History Last Taken Unknown] oxycodone 5 mg tablet 5 mg PO Q6H PRN pain 3 days #12 tabs 07/29/22 [Rx Last Taken Unknown] Allergy/AdvReac Type Severity Reaction Status Date / Time amoxicillin [From Augmentin] Allergy PT UNSURE Verified 07/29/22 08:21 OF REACTION clavulanic acid Allergy PT UNSURE Verified 07/29/22 08:21 [From Augmentin] OF REACTION Iodinated Contrast Media Allergy Anaphylaxis Verified 07/29/22 08:21 [DYEE] levofloxacin [From Levaquin] Allergy Upset Verified 07/29/22 08:21 Stomach loratadine [From Claritin] Allergy PT UNSURE Verified 07/29/22 08:21 OF REACTION hydrocodone bitartrate AdvReac Nausea/Vom/ Verified 07/29/22 08:21 [From Vicodin] Diarrhea iodine AdvReac Nausea/Vom/ Verified 07/29/22 08:21 Diarrhea Family History Mother Arthritis Surgical History History of appendectomy History of cataract extraction History of cholecystectomy History of hernia repair History of open heart surgery History of tonsillectomy Social History Smoking Status: Never smoker ROS ROS ED Constitutional Constitutional ED: Denies chills, fever(s) or weight loss Eyes Eyes: Denies blurry vision, change in vision or diplopia ENT ENT ED: Denies ear pain, rhinorrhea or sore throat Cardiovascular Cardiovascular: Denies chest pain, orthopnea, palpitations or racing heartbeat Respiratory/Chest Respiratory/Chest: Denies cough, dyspnea or orthopnea Gastrointestinal Gastrointestinal: Denies abdominal pain, diarrhea, nausea or vomiting Genitourinary Genitourinary ED: Denies dysuria, hematuria or urinary frequency Musculoskeletal Musculoskeletal: Denies arthralgias or myalgias Integumentary Denies abscess or rash Neurologic Neurologic: Denies headache(s) or weakness Psychiatric Psychiatric: Denies anxiety, depression, suicidal ideation or suicidal thoughts Endocrine Endocrinology: Denies polydipsia, polyphagia or polyuria Allergic/Immunologic Allergic/Immunologic ED: Denies mouth swelling, tongue swelling or urticaria EXAM Physical Exam Const Vital Signs: 07/29/22 08:07 Temperature 98.3 F Temperature Source Oral Pulse Rate 60 Respiratory Rate 16 Blood Pressure 191/69 H Blood Pressure Mean 109 Pulse Ox 95 Oxygen Delivery Method Nasal Cannula Oxygen Flow Rate (L/min) 2 Positive well nourished, well developed and obese General Appearance ED: well developed Nutritional Appearance: obese HEENT Reports normocephalic, head/scalp atraumatic and moist mucous membranes Eyes PERRL and EOMs intact bilaterally Neck no lymphadenopathy, supple and no JVD Resp normal respiratory effort and clear to auscultation bilaterally Cardio regular rate, regular rhythm and no murmurs GI normal to inspection, nondistended, normoactive bowel sounds and non-tender Palpation: soft Back/Spine no CVA tenderness and normal ROM Extremity Extremity Narrative: Patient reports tenderness to palpation over the left hip General Extremety ED: Negative for edema General Extremity: Negative for edema Neuro oriented x3 and CN's II-XII intact bilaterally Sensorium / Orientation: alert Motor Exam: strength 5/5 throughout Psych mental status grossly normal Mood & Affect: Negative for depressed or tearful Skin no rashes or lesions noted and no wounds MDM MDM MDM Narrative Medical decision making narrative: CT the brain was negative for hemorrhage or fracture. X-rays of the left hip and pelvis were read by myself. This demonstrated nondisplaced fractures of the left superior and inferior pubic rami. No hip fracture was noted. Radiology does concur. Patient initially received some oxycodone and then a dose of Zofran and morphine. Should be discharged back to [facility] if worsening or concerns Radiography Diagnostic Testing: Clinical Impression(s) from Imaging Studies Brain CT 07/29/22 08:09 IMPRESSION: Chronic involutional changes of the brain. Electronically Signed: Wiliam Hernandez MD at 8:57 EST , Hip/Pelvis X-Ray 07/29/22 08:09 IMPRESSION: Nondisplaced fracture of the left superior and inferior pubic rami. Electronically Signed: Wiliam Hernandez MD at 8:58 EST , Discharge Plan Triage Chief Complaint: Lower Extremity Injury ED Provider: Giovanny Fox Dx/Rx/DC Orders Clinical Impression: Fall, Closed fracture of left superior pubic ramus, Closed fracture of left inferior pubic ramus, Acute pain of left hip, Hematoma Instructions: ED Pelvic Fracture Prescriptions: New oxycodone 5 mg tablet 5 mg PO Q6H PRN (Reason: pain) 3 Days Qty: 12 0RF No Action atorvastatin 80 MG tablet 80 mg PO QHS polyethylene glycol 3350 17 GM powder in packet 17 gm PO BID metoprolol succinate 50 MG tablet extended release 24 hr 25 mg PO DAILY ondansetron HCl 4 MG tablet 4 mg PO Q6H PRN PRN (Reason: Nausea/Vomiting) isosorbide mononitrate 30 MG tablet extended release 24 hr 30 mg PO DAILY melatonin 3 MG tablet 6 mg PO QHS aspirin 81 MG tablet 81 mg PO DAILY@0800 losartan 25 MG tablet 25 mg PO DAILY insulin lispro 100 UNIT/ML insulin pen 5 unit SQ TID insulin detemir U-100 100 UNIT/ML insulin pen 35 unit SQ DAILY anastrozole 1 MG tablet 1 mg PO DAILY furosemide 40 MG tablet 40 mg PO DAILY Qty: 0 0RF Label Comments: PER [facility] 02/26-03/04. tamsulosin 0.4 MG capsule 0.4 mg PO DAILY@1730 pantoprazole 40 MG tablet 20 mg PO BID cyanocobalamin (vitamin B-12) 1,000 MCG/ML solution 1,000 mcg IJ MOWEFR nystatin 15 GM powder 15 gm TP BID lactulose 20 GM/30 ML solution 20 gm PO DAILY Iron Polysaccharide Complex [Ferrex 150] 150 MG capsule 150 mg PO DAILY sennosides-docusate sodium 1 TABLET tablet 1 tab PO BID 0RF acetaminophen 500 MG tablet 1,000 mg PO Q6H PRN PRN (Reason: Pain Score 1-10/10) 0RF bisacodyl 10 MG suppository 10 mg RECTAL DAILY PRN (Reason: Constipation) 0RF nut.tx.gluc intol,lf,soy-fiber 120 ML liquid 120 ml PO 4X/DAY 0RF menthol-zinc oxide 1 APPLIC ointment 1 applic topical 599,2199 0RF Protocol: *Topical Application Instructions APPLICATION INSTRUCTIONS: bilateral buttocks Mineral Oil/Petrolatum,White [Eucerin] 1 APPLIC Jar 1 applic topical 599,2199 0RF Protocol: *Topical Application Instructions APPLICATION INSTRUCTIONS: x4 ext cetirizine 5 mg Tablet 5 mg PO DAILY cilostazol 50 mg tablet 50 mg PO BID fluoxetine 10 mg capsule 10 mg PO DAILY insulin glargine [Lantus Solostar U-100 Insulin] 100 unit/mL (3 mL) insulin pen 30 unit SUBCUT BID Primary Care Provider: Jordan Shelton Referrals: Bautista Davila DO [Med Staff - Active Staff] - As soon as possible Jordan Shelton MD [Primary Care Provider] - Activity Restrictions/Additional Instructions: As discussed these fractures of your pelvis should not require surgery. You are allowed to ambulate with them using a walker and assistance. You may follow-up with Dr. Davila for orthopedics or the orthopedist of your choice Disposition Disposition: Senior Care Facility Discharge Location: [facility]
[2022-07-29] MEDS: Ondansetron ODT 4 MG Tablet PO (08:17)
[2022-07-29] MEDS: oxyCODONE 5 MG Tablet PO (08:57)
[2022-07-29] MEDS: Ondansetron 4 MG/2 ML Vial IV (09:49)
[2022-07-29] MEDS: Morphine 4 MG/ML Syringe IV (09:49)
[2022-07-29 10:00] VITALS: BP 118/46; PULSE 72; RESP 15; O2SAT 95
--- NOTE | 2022-07-29 10:04 | ED.RN ---
[facility] ETA 11:00 AM
--- NOTE | 2022-07-29 11:21 | ED.RN ---
ATTEMPTED TO CALL REPORT TO [facility], GAVE PHONE NUMBER FOR RETURN CALL. DID UPDATE SON ON PT STATUS
== END 2022-07-29 11:21 | disposition skilled nursing facility (03) ==
PROVIDERS: Emergency Provider Emergency Medicine; PCP Family Medicine; Visit Provider Emergency Medicine
DX: S32.592A Other specified fracture of left pubis, initial encounter for closed fracture (principal); S32.512A Fracture of superior rim of left pubis, initial encounter for closed fracture; E11.9 Type 2 diabetes mellitus without complications; S70.02XA Contusion of left hip, initial encounter; I10 Essential (primary) hypertension; M25.552 Pain in left hip; Z86.73 Personal history of transient ischemic attack (TIA), and cerebral infarction without residual deficits; Z95.810 Presence of automatic (implantable) cardiac defibrillator; W19.XXXA Unspecified fall, initial encounter
CPT/HCPCS: 70450; 73502; 96374; 96375; 99284; A4216; J2405

== ENCOUNTER → 2022-08-01 | Outpatient (REF) | payer MEDICARE, MEDICAID, SELFPAY ==
[2022-08-01 09:16] LABS: Cholesterol 120 mg/dL (200); High Density Lipoprotein 37 mg/dL; Triglycerides 110 mg/dL; Very Low Density Lipoprotein 22 mg/dL (5-40)
[2022-08-01 09:55] LABS: Vitamin B12 443 pg/mL (211-911)
[2022-08-01 09:56] LABS: Hemoglobin A1c 7.9 % (3.8-5.6)
== END ==
LOC: OLS.SW 04:00
PROVIDERS: PCP Family Medicine; Referring Provider Family Medicine; Visit Provider Family Medicine
DX: E11.9 Type 2 diabetes mellitus without complications (principal)
CPT/HCPCS: 36415; 80061; 82607; 83036

== ENCOUNTER → 2022-08-02 | Outpatient (REF) | payer MEDICARE, MEDICAID, SELFPAY ==
[2022-08-02 09:40] LABS: Absolute Lymphocyte Count 1.57 X10^3/uL (0.83-4.51); Absolute Neutrophil Count 6.6 X10^3/uL (2.0-7.7); Basophil# 0.05 X10^3/uL; Basophil% 0.5 % (0-1); Eosinophil# 0.21 X10^3/uL; Eosinophils% 2.2 % (0-5); Hemoglobin 9.2 g/dL (12.0-15.0); Lymphocyte # 1.57 X10^3/ul (0.83-4.51); Lymphocyte % 16.3 % (19-41); Mean Corp Hgb Conc 31.7 g/dL (32-36); Mean Corpuscular Hgb 29.6 pg (27.0-32.0); Mean Corpuscular Volume 93.2 fL (81-99); Monocyte# 1.14 X10^3/uL; Monocyte% 11.8 % (0-10); NRBC Flagged by Analyzer 0.2 % (0-5); Neutrophil # 6.63 X10^3/uL (2.7-7.7); Neutrophil % 68.7 % (47-70); Platelet Count 144 K/mm3 (150-450); RBC Distribution Width CV 14.6 % (11.6-14.6); RBC Distribution Width SD 49.1 fl (35.1-43.9); Red Blood Count 3.11 M/mm3 (4.2-5.4); White Blood Count 9.7 K/mm3 (4.4-11.0)
[2022-08-02 10:35] LABS: ALB/GLOB Ratio 0.7 RATIO (0.9-2.4); AST(SGOT) 164 U/L (15-37); Alanine Aminotransfer ALT/SGPT 165 U/L (13-56); Albumin, Serum 2.6 g/dL (3.2-5.0); Alkaline Phosphatase 194 U/L (45-117); Anion Gap 5 (5-15); BUN 79 mg/dL (7-18); BUN/Creat Ratio 21.2 RATIO (10-20); Calcium,Total 8.8 mg/dL (8.5-10.1); Chloride 108 mmol/L (98-107); Creatinine, Serum 3.73 mg/dL (0.55-1.02); EST Glomerular Filtration Rate 12 mL/min (>60); Est Glom Filt Rate - Afr Amer 15 mL/min (>60); Globulin 3.7 g/dL (2.2-4.2); Glucose 139 mg/dL (74-106); Potassium 4.9 mmol/L (3.5-5.1); Protein, Total 6.3 g/dL (6.4-8.2); Sodium Level 144 mmol/L (136-145)
[2022-08-02 16:30] LABS: Hematocrit 27.8 % (37-47); Hemoglobin 8.8 g/dL (12.0-15.0); Mean Corp Hgb Conc 31.7 g/dL (32-36); Mean Corpuscular Hgb 29.7 pg (27.0-32.0); Mean Corpuscular Volume 93.9 fL (81-99); Mean Platelet Vol. 10.7 fl (6.2-12.0); Platelet Count 150 K/mm3 (150-450); RBC Distribution Width CV 14.6 % (11.6-14.6); RBC Distribution Width SD 49.2 fl (35.1-43.9); Red Blood Count 2.96 M/mm3 (4.2-5.4); White Blood Count 10.1 K/mm3 (4.4-11.0)
[2022-08-02 16:38] LABS: Erythrocyte Sedimentation Rate 30 mm/hr (0-30)
[2022-08-02 16:44] LABS: ALB/GLOB Ratio 0.7 RATIO (0.9-2.4); AST(SGOT) 170 U/L (15-37); Alanine Aminotransfer ALT/SGPT 150 U/L (13-56); Albumin, Serum 2.4 g/dL (3.2-5.0); Alkaline Phosphatase 192 U/L (45-117); Anion Gap 5 (5-15); BUN 73 mg/dL (7-18); BUN/Creat Ratio 21.9 RATIO (10-20); Calcium,Total 8.1 mg/dL (8.5-10.1); Chloride 102 mmol/L (98-107); Creatinine, Serum 3.34 mg/dL (0.55-1.02); EST Glomerular Filtration Rate 14 mL/min (>60); Est Glom Filt Rate - Afr Amer 17 mL/min (>60); Globulin 3.5 g/dL (2.2-4.2); Glucose 128 mg/dL (74-106); Potassium 4.6 mmol/L (3.5-5.1); Protein, Total 5.9 g/dL (6.4-8.2); Sodium Level 139 mmol/L (136-145)
== END ==
LOC: OLS.SW 05:00
PROVIDERS: PCP Family Medicine; Visit Provider Family Medicine
DX: E11.9 Type 2 diabetes mellitus without complications (principal); K92.2 Gastrointestinal hemorrhage, unspecified; T14.8XXA Other injury of unspecified body region, initial encounter
CPT/HCPCS: 36415; 80053; 82140; 85025; 85027; 85652

== ENCOUNTER 2022-08-03 13:12 | Inpatient (IN) | payer MEDICARE, MEDICAID, SELFPAY ==
[2022-08-03] VITALS (8 sets, daily range): BP systolic 103–143; BP diastolic 39–58; PULSE 71–86; RESP 16–20; TEMP 36.5–36.9; O2SAT 73–97; BMI 33.7; BMI 32.8
--- NOTE | 2022-08-03 14:26 | CT_ITS ---
STUDY: CT BRAIN WITHOUT CONTRAST REASON FOR EXAM: Female, 82 years old. ms change RADIATION DOSAGE (If Supplied By Facility): CTDIvol = ( 44.99 ) mGy, DLP = ( 796.11 ) mGycm TECHNIQUE: Transaxial CT imaging of the brain was performed without administration of intravenous contrast material. Individualized dose optimization techniques were used for this CT. COMPARISON: Comparison is made with prior study dated 07/29/2022. FINDINGS: Normal soft tissue structures. Normal calvarium. There is mild cerebral atrophy with widening of the extra-axial spaces and ventricular dilatation. There are areas of decreased attenuation within the white matter tracts of the supratentorial brain, consistent with microvascular disease changes. There are small punctate calcifications of the basal ganglia which are seen in the aging brain as a normal variant. Normal brainstem. Normal cerebellum. There is no intracranial hemorrhage. There are no findings of an acute ischemic infarction. Atherosclerotic plaque formation of the vertebral arteries and cavernous portions of the internal carotid arteries bilaterally. Normal visualized paranasal sinuses. Which again, there is calcification of the right and left globes. CT/Brain/Head without Contrast IMPRESSION: Chronic involutional changes of the brain. Electronically Signed: Wiliam Hernandez MD at 15:16 [facility] ,
--- NOTE | 2022-08-03 14:27 | EKG12_ITS ---
Test Reason : WEAKNESS Blood Pressure : / mmHG Vent. Rate : 085 BPM Atrial Rate : 000 BPM P-R Int : 000 ms QRS Dur : 140 ms QT Int : 400 ms P-R-T Axes : 000 -45 129 degrees QTc Int : 476 ms Atrial fibrillation with occasional AV dual-paced complexes Left axis deviation Non-specific intra-ventricular conduction block Minimal voltage criteria for LVH, may be normal variant ( Jesus product ) Inferior infarct , age undetermined Anterolateral infarct , age undetermined Abnormal ECG Confirmed by ROBERT HERNANDEZ, STACEY ([id number]), development editor VANI PATEL ([id number]) on 08/05/2022 10:44:33 AM Referred By: Confirmed By:BOYD JONES MD
--- NOTE | 2022-08-03 14:28 | EDS_ITS ---
HPI History of Present Illness Chief Complaint: Mental Status Change Detail of Chief Complaint: Patient sent in from retirement with mental status change.. Informant: patient Onset/Context/Timing Onset: Today Current Severity: Mild Maximum Severity: Mild Narrative Narrative: 82-year-old female from extended-care facility was seen in the ninth. Had a fall at that time x-rays were negative. Reportedly being sent in today for mental status change and abnormal labs. She denies complaints. She does know where she is at. Prior similar symptoms: Yes Recent Illness/Hospitalization: Yes [facility] Medical History Cardiac defibrillator in place Diabetes mellitus heart cath Heart disease Left arm surgery Pacemaker Stroke Home Medications anastrozole 1 mg tablet 1 mg PO DAILY CANCER 03/02/20 [History Last Taken 04/04/20] aspirin 81 mg tablet,delayed release 81 mg PO DAILY@0800 HEART HEALTH 03/02/20 [History Last Taken 04/04/20] atorvastatin 80 mg tablet 80 mg PO QHS CHOLESTEROL 03/02/20 [History Last Taken 04/03/20] insulin detemir U-100 100 unit/mL (3 mL) subcutaneous pen 35 unit SQ DAILY DM 03/02/20 [History Last Taken 04/04/20] insulin lispro 100 unit/mL subcutaneous pen 5 unit SQ TID DM 03/02/20 [History Last Taken 04/04/20] isosorbide mononitrate 30 mg tablet,extended release 24 hr 30 mg PO DAILY BP 03/02/20 [History Last Taken 04/04/20] losartan 25 mg tablet 25 mg PO DAILY HTN 03/02/20 [History Last Taken 04/04/20] melatonin 3 mg tablet 6 mg PO QHS SLEEP 03/02/20 [History Last Taken 04/03/20] metoprolol succinate 50 mg tablet,extended release 24 hr 25 mg PO DAILY HEART 03/02/20 [History Last Taken 04/04/20] ondansetron HCl 4 mg tablet 4 mg PO Q6H PRN PRN Nausea/Vomiting 03/02/20 [Histo ry Last Taken 03/02/20] polyethylene glycol 3350 17 gram oral powder packet 17 gm PO BID CONSTIPATION 03/02/20 [History Last Taken 04/04/20] furosemide 40 mg tablet 40 mg PO DAILY FLUID ##0 03/06/20 [Rx Last Taken 04/04/20] pantoprazole 40 mg tablet,delayed release 20 mg PO BID Stomach acid 03/06/20 [History Last Taken 04/04/20] tamsulosin 0.4 mg capsule 0.4 mg PO DAILY@1730 Bladder 03/06/20 [History Last Taken 04/03/20] Iron Polysaccharide Complex [Ferrex 150] 150 mg PO DAILY supplement 04/01/20 [History Last Taken 04/04/20] cyanocobalamin (vitamin B-12) 1,000 mcg/mL injection solution 1,000 mcg IJ MOWEFR supplement 04/01/20 [History Last Taken 04/03/20] lactulose 20 gram/30 mL oral solution 20 gm PO DAILY Check with primary doctor 04/01/20 [History Last Taken 04/04/20] nystatin 100,000 unit/gram topical powder 15 gm TP BID Check with primary doctor 04/01/20 [History Last Taken 04/04/20] Mineral Oil/Petrolatum,White [Eucerin] 1 applic topical 0600,0 04/06/20 [Rx Last Taken Unknown] acetaminophen 500 mg tablet 1,000 mg PO Q6H PRN PRN Pain Score 1-1010 04/06/20 [Rx Last Taken Unknown] bisacodyl 10 mg rectal suppository 10 mg RECTAL DAILY PRN Constipation 04/06/20 [Rx Last Taken Unknown] menthol 0.44 %-zinc oxide 20.6 % topical ointment 1 applic topical 0600,2200 04/06/20 [Rx Last Taken Unknown] nutrition tx glu intol,lac-free,soy-fiber 0.06 gram-1.2 kcal/mL liquid 120 ml PO 4X/DAY 04/06/20 [Rx Last Taken Unknown] sennosides 8.6 mg-docusate sodium 50 mg tablet 1 tab PO BID 04/06/20 [Rx Last Taken Unknown] cetirizine 5 mg tablet 5 mg PO DAILY 07/29/22 [History Last Taken Unknown] cilostazol 50 mg tablet 50 mg PO BID 07/29/22 [History Last Taken Unknown] fluoxetine 10 mg capsule 10 mg PO DAILY 07/29/22 [History Last Taken Unknown] insulin glargine 100 unit/mL (3 mL) subcutaneous pen (Lantus Solostar U-100 Insulin) 30 unit subcut BID 07/29/22 [History Last Taken Unknown] oxycodone 5 mg tablet 5 mg PO Q6H PRN pain 3 days #12 tabs 07/29/22 [Rx Last Taken Unknown] Allergy/AdvReac Type Severity Reaction Status Date / Time amoxicillin [From Augmentin] Allergy PT UNSURE Verified 08/03/22 13:19 OF REACTION clavulanic acid Allergy PT UNSURE Verified 08/03/22 13:19 [From Augmentin] OF REACTION Iodinated Contrast Media Allergy Anaphylaxis Verified 08/03/22 13:19 [DYEE] levofloxacin [From Levaquin] Allergy Upset Verified 08/03/22 13:19 Stomach loratadine [From Claritin] Allergy PT UNSURE Verified 08/03/22 13:19 OF REACTION hydrocodone bitartrate AdvReac Nausea/Vom/ Verified 08/03/22 13:19 [From Vicodin] Diarrhea iodine AdvReac Nausea/Vom/ Verified 08/03/22 13:19 Diarrhea Family History Mother Arthritis Surgical History History of appendectomy History of cataract extraction History of cholecystectomy History of hernia repair History of open heart surgery History of tonsillectomy Social History Smoking Status: Never smoker ROS ROS ED ROS Narrative 62 patient denies. Limited informant. Review of Systems ROS Unobtainable: due to mental status; Denies due to encephalopathy Constitutional Constitutional ED: Denies chills or fever(s) Eyes Eyes: Denies blurry vision ENT ENT ED: Denies ear pain Cardiovascular Cardiovascular: Denies chest pain Respiratory/Chest Respiratory/Chest: Denies cough or dyspnea Gastrointestinal Gastrointestinal: Denies abdominal pain Genitourinary Genitourinary ED: Denies dysuria or hematuria Musculoskeletal Musculoskeletal: Denies arthralgias Integumentary Denies abscess or Abrasions Neurologic Neurologic: Denies headache(s) Psychiatric Psychiatric: Denies anxiety Endocrine Endocrinology: Denies cold intolerance Hematologic/Lymphatic Hematologic/Lymphatic: Reports none Allergic/Immunologic Allergic/Immunologic ED: Denies mouth swelling or tongue swelling EXAM Physical Exam Narrative Exam Narrative: 82-year-old no acute distress except her pulse ox is 73% on room air on 5 L she is 92% so she is obviously hypoxic. H EENT exam atraumatic. Pupils round reactive light. Mildly dry mucous membranes. No facial droop. Neck nontender. No signs of trauma to her face or scalp. Lungs clear to auscultation bilaterally. Heart regular rate and rhythm rate about 85 3/6 systolic extra murmur. Chest wall nontender. Abdomen soft nontender. She is obese. Pelvic girdle intact. She does move all 4 extremities. Neurologically she is awake. She does answer questions. She is a limited informant. She seems slightly weaker on the right than the left but she can move all 4 extremities. She has had a prior stroke. Const Vital Signs: 08/03/22 13:14 08/03/22 13:13 08/03/22 16:47 Temperature 97.7 F L Temperature Source Temporal Pulse Rate 86 83 Respiratory Rate 17 20 H Blood Pressure 122/45 H 103/45 L Blood Pressure Mean 70 64 Pulse Ox 73 92 97 Oxygen Delivery Method Room Air Nasal Cannula Room Air Oxygen Flow Rate (L/min) 5 08/03/22 17:16 Temperature Temperature Source Pulse Rate Respiratory Rate Blood Pressure Blood Pressure Mean Pulse Ox 74 Oxygen Delivery Method Room Air Oxygen Flow Rate (L/min) Positive well nourished, well developed and obese; Negative for cachectic, contractures or unkempt General Appearance ED: well developed, NAD and pallor; Negative for unkempt, cachectic, contractures, cyanotic or diaphoretic Nutritional Appearance: obese; Negative for cachectic HEENT Reports dry mucous membranes; Denies moist mucous membranes Negative for trauma or tenderness Mouth ED: Yes dry mucous membranes Mouth: dry mucous membranes Eyes PERRL and EOMs intact bilaterally General Eye ED: Negative for pale conjunctiva or scleral icterus Neck no lymphadenopathy, supple and no JVD General: Negative for tenderness Chest Wall inspection of chest normal and palpation of chest normal Resp normal respiratory effort and clear to auscultation bilaterally Effort and Inspection: Negative for retractions Auscultation: Negative for rales, rhonchi or wheezes Cardio regular rate, regular rhythm, S1 normal heart sound and S2 normal heart sound; Negative for no murmurs GI normal to inspection, nondistended, normoactive bowel sounds, non-tender, non- distended and no masses Inspection: Negative for abdominal distention Auscultation: normoactive bowel sounds Palpation: soft; Negative for tender Back/Spine no CVA tenderness General Back: Negative for CVA tenderness Cervical Spine: Negative for cervical spine tenderness Thoracic Spine / Upper Back: Negative for thoracic spinal tenderness Lumbar Spine / Lower Back: Negative for lumbar spinal tenderness Extremity normal to inspection General Extremety ED: Negative for edema or tenderness General Extremity: Negative for edema Neuro No oriented x3 Sensorium / Orientation: alert and orientation impaired; Negative for lethargic or stuporous Motor Exam: general weakness and strength abnormal; Negative for strength 5/5 throughout Psych mental status grossly normal Appearance: Negative for unkempt Attitude: No agitated Mood & Affect: Negative for depressed, anxious or tearful Skin no rashes or lesions noted and no wounds General Skin Exam: elasticity normal and pallor Lesions: No lesion noted Rashes: No rashes noted Trauma: Negative for abrasion Wounds: Negative for wounds noted MDM MDM MDM Narrative Medical decision making narrative: 82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 Presents with mental status change. Reportedly abnormal labs. CAT scan, chest x-ray EKG and labs to be obtained. She has had recent ER evaluation for a fall and pubic rami fracture. She was discharged back to the extended care facility that time. I spoke to the extended care facility they sent her in because the nurse practitioner there was concerned with her elevated BUN/creatinine the liver enzymes are wonderful further evaluated. They did not have any hypoxia at the retirement. She is DNR comfort care. Repeat exam unchanged at 5:15 PM. I have spoken to the hospitalist. She will be admitted for her acute kidney injury, renal insufficiency, elevated liver enzymes and hypoxia of uncertain etiology. You cannot do a CTA on her at this time due to her creatinine of 3. Hospitalist today will address do further testing. Lab Data Attestation: I reviewed the patient's lab results. Lab results narrative: CBC is awake 11.5. H&H 9.7 and 31.3. Platelets 176. She has a history of chronic anemia. Electrolytes show a gap of 6 BUN and creatinine is 76 and 3.17 consistent with her end-stage renal disease. Liver enzymes are slightly elevated total bilirubin of 4.1 AST 192 ALT 146 and alk phos of 259. These labs are consistent with prior labs. CAT scan of the brain shows chronic changes as is a chest x-ray. Urinalysis negative. No white cells nor red cells nor nitrates or bacteria. Labs: Laboratory Results - last 24 hr 08/03/22 08/03/22 08/03/22 13:20 13:20 15:19 WBC 11.5 H RBC 3.36 L Hgb 9.7 L Hct 31.3 L MCV 93.2 MCH 28.9 MCHC 31.0 L RDW Std Deviation 49.2 H RDW Coeff of Gunnar 14.7 H Plt Count 176 MPV 11.6 Immature Gran % (Auto) 0.500 Neut % (Auto) 78.3 H Lymph % (Auto) 8.9 L [place] % (Auto) 11.5 H Eos % (Auto) 0.5 Baso % (Auto) 0.3 Absolute Neuts (auto) 9.0 H Absolute Lymphs (auto) 1.02 Nucleated RBC % 0.2 Sodium 140 Potassium 4.5 Chloride 101 Carbon Dioxide 33.0 H Anion Gap 6 BUN 76 H Creatinine 3.17 H Estim Creat Clear Calc 12.74 Est GFR (MDRD) Af Amer 18 L Est GFR (MDRD) Non-Af 15 L BUN/Creatinine Ratio 24.0 H Glucose 76 Calcium 8.7 Total Bilirubin 4.10 H AST 192 H ALT 146 H Alkaline Phosphatase 259 H Total Protein 7.0 Albumin 2.6 L Globulin 4.4 H Albumin/Globulin Ratio 0.6 L Urine Color Melissa Urine Clarity Sl. Cloudy Urine pH 5.0 Ur Specific Enigma 1.015 Urine Protein 30 H Urine Glucose (UA) Normal Urine Ketones Negative Urine Occult Blood 50 H Urine Nitrite Negative Urine Bilirubin 3 H Urine Urobilinogen 4 H Ur Leukocyte Esterase 25 H Urine RBC 0 SEEN Urine WBC 0-5 SEEN Ur Squamous Epith Cells 0-5 SEEN Amorphous Sediment 1+ Urine Bacteria 0 SEEN Hyaline Casts 0-5 SEEN Urine Mucus 0 SEEN Radiography Chest X-Ray - ED: 1 View, Read by ED Physician, Heart, Lungs, Mediastinum, Bony Structures, No Acute Disease and Chronic Changes Diagnostic Testing: Clinical Impression(s) from Imaging Studies Brain CT 08/03/22 14:26 IMPRESSION: Chronic involutional changes of the brain. Electronically Signed: Wiliam Hernandez MD at 15:16 EST , Chest X-Ray 08/03/22 14:47 IMPRESSION: Stable pleural parenchymal changes at the left lung base. Electronically Signed: Wiliam Hernandez MD at 15:12 EST , Chest x-ray, portable, single view interpreted both by myself and radiologist shows chronic left parenchymal and pleural lung changes. They are consistent with her prior x-rays. She also has a pacemaker defibrillator on the left. No acute process. Rhythm Strip Rhythm Strip: A-fib Rate: 85 Ectopy: None EKG Initial EKG: Attestation: I personally reviewed and interpreted this EKG as follows: Interpretation: Atrial Fibrillation Comments: A. fib rate 85 with occasional paced beats. No acute signs of MA or ischemia. Interventricular conduction delay. Discharge Plan Triage Chief Complaint: Mental Status Change ED Provider: Hector Rodriguez Dx/Rx/DC Orders Clinical Impression: Acute kidney injury, Acute dehydration, Hypoxia, Elevated liver enzymes, DNR (do not resuscitate), History of diabetes mellitus Prescriptions: No Action atorvastatin 80 MG tablet 80 mg PO QHS polyethylene glycol 3350 17 GM powder in packet 17 gm PO BID metoprolol succinate 50 MG tablet extended release 24 hr 25 mg PO DAILY ondansetron HCl 4 MG tablet 4 mg PO Q6H PRN PRN (Reason: Nausea/Vomiting) isosorbide mononitrate 30 MG tablet extended release 24 hr 30 mg PO DAILY melatonin 3 MG tablet 6 mg PO QHS aspirin 81 MG tablet 81 mg PO DAILY@0800 losartan 25 MG tablet 25 mg PO DAILY insulin lispro 100 UNIT/ML insulin pen 5 unit SQ TID insulin detemir U-100 100 UNIT/ML insulin pen 35 unit SQ DAILY anastrozole 1 MG tablet 1 mg PO DAILY furosemide 40 MG tablet 40 mg PO DAILY Qty: 0 0RF Label Comments: PER [facility] MAR ON HOLD 02/26-03/04. tamsulosin 0.4 MG capsule 0.4 mg PO DAILY@1730 pantoprazole 40 MG tablet 20 mg PO BID cyanocobalamin (vitamin B-12) 1,000 MCG/ML solution 1,000 mcg IJ MOWEFR nystatin 15 GM powder 15 gm TP BID lactulose 20 GM/30 ML solution 20 gm PO DAILY Iron Polysaccharide Complex [Ferrex 150] 150 MG capsule 150 mg PO DAILY sennosides-docusate sodium 1 TABLET tablet 1 tab PO BID 0RF acetaminophen 500 MG tablet 1,000 mg PO Q6H PRN PRN (Reason: Pain Score 1-10/10) 0RF bisacodyl 10 MG suppository 10 mg RECTAL DAILY PRN (Reason: Constipation) 0RF nut.tx.gluc intol,lf,soy-fiber 120 ML liquid 120 ml PO 4X/DAY 0RF menthol-zinc oxide 1 APPLIC ointment 1 applic topical 0600,2200 0RF Protocol: *Topical Application Instructions APPLICATION INSTRUCTIONS: bilateral buttocks Mineral Oil/Petrolatum,White [Eucerin] 1 APPLIC Jar 1 applic topical 0600,2200 0RF Protocol: *Topical Application Instructions APPLICATION INSTRUCTIONS: x4 ext cetirizine 5 mg Tablet 5 mg PO DAILY cilostazol 50 mg tablet 50 mg PO BID fluoxetine 10 mg capsule 10 mg PO DAILY insulin glargine [Lantus Solostar U-100 Insulin] 100 unit/mL (3 mL) insulin pen 30 unit SUBCUT BID oxycodone 5 mg tablet 5 mg PO Q6H PRN (Reason: pain) 3 Days Qty: 12 0RF Primary Care Provider: Jordan Shelton Referrals: Jordan Shelton MD [Primary Care Provider] - Disposition Disposition: Acute Care Hospital [facility]
[2022-08-03 14:40] LABS: Absolute Lymphocyte Count 1.02 X10^3/uL (0.83-4.51); Basophil# 0.03 X10^3/uL; Basophil% 0.3 % (0-1); Eosinophil# 0.06 X10^3/uL; Eosinophils% 0.5 % (0-5); Hematocrit 31.3 % (37-47); Hemoglobin 9.7 g/dL (12.0-15.0); Lymphocyte # 1.02 X10^3/ul (0.83-4.51); Lymphocyte % 8.9 % (19-41); Mean Corpuscular Hgb 28.9 pg (27.0-32.0); Mean Corpuscular Volume 93.2 fL (81-99); Mean Platelet Vol. 11.6 fl (6.2-12.0); Monocyte# 1.32 X10^3/uL; Monocyte% 11.5 % (0-10); NRBC Flagged by Analyzer 0.2 % (0-5); Neutrophil # 8.98 X10^3/uL (2.7-7.7); Neutrophil % 78.3 % (47-70); Platelet Count 176 K/mm3 (150-450); RBC Distribution Width CV 14.7 % (11.6-14.6); RBC Distribution Width SD 49.2 fl (35.1-43.9); Red Blood Count 3.36 M/mm3 (4.2-5.4); White Blood Count 11.5 K/mm3 (4.4-11.0)
--- NOTE | 2022-08-03 14:47 | RAD_ITS ---
STUDY: X-RAY CHEST REASON FOR EXAM: Female, 82 years old. ms change TECHNIQUE: Single AP portable view of the chest. COMPARISON: Comparison is made with prior study dated 11/26/2021. FINDINGS: EKG electrodes are seen. Stable pleural parenchymal changes at the left lung base suggests a small left pleural effusion with left basilar infiltration and/or atelectasis. Sternal cerclage wires and vascular clips are present from a prior sternotomy and coronary artery bypass graft procedure (CABG). A left-sided dual-chamber pacemaker is seen. Normal mediastinum and renay. Normal visualized pulmonary arteries. There is atherosclerotic calcification of the aortic arch with tortuosity. Normal visualized thoracic spine. Normal visualized ribs, clavicles, and shoulders. There is no demonstrated abnormality of the visualized soft tissue structures of the upper abdomen. RAD/Chest 1 View (Portable) IMPRESSION: Stable pleural parenchymal changes at the left lung base. Electronically Signed: Wiliam Hernandez MD at 15:12 EST ,
[2022-08-03] MEDS: 0.9% Normal Saline 1,000 ML 1000 ML IV (14:48)
[2022-08-03 14:54] LABS: ALB/GLOB Ratio 0.6 RATIO (0.9-2.4); AST(SGOT) 192 U/L (15-37); Alanine Aminotransfer ALT/SGPT 146 U/L (13-56); Albumin, Serum 2.6 g/dL (3.2-5.0); Alkaline Phosphatase 259 U/L (45-117); Anion Gap 6 (5-15); BUN 76 mg/dL (7-18); Calcium,Total 8.7 mg/dL (8.5-10.1); Chloride 101 mmol/L (98-107); Creatinine, Serum 3.17 mg/dL (0.55-1.02); EST Glomerular Filtration Rate 15 mL/min (>60); Est Glom Filt Rate - Afr Amer 18 mL/min (>60); Estimated Creatinine Clearance 12.74 ml/min; Globulin 4.4 g/dL (2.2-4.2); Glucose 76 mg/dL (74-106); Potassium 4.5 mmol/L (3.5-5.1); Sodium Level 140 mmol/L (136-145)
[2022-08-03 15:23] LABS: Bacteria 0 SEEN /hpf (None Seen); Mucous, Urine 0 SEEN /hpf (<or=2+); Red Blood Cells-Urine 0 SEEN /hpf (0-5)
[2022-08-03 15:33] LABS: Color, Urine Amber (Yellow); Glucose, Dipstick Normal (Normal); Ketone-Dipstick Negative (Negative); Leukocyte Esterase-Dipstick 25 /ul (Negative); Nitrite-Dipstick Negative (Negative); Occult Blood-Urine 50 /ul (Negative); Protein-Dipstick 30 mg/dl (Negative); Specific Gravity, Urine 1.015 (1.002-1.030); Urine Clarity Sl. Cloudy (Clear); Urine Urobilinogen 4 mg/dl (Normal)
[2022-08-03 16:36] LABS: Urine Bilirubin Dipstick 3 mg/dL (Negative)
[2022-08-03 16:37] LABS: Amorphous Sediment 1+; Hyaline Cast 0-5 SEEN /lpf (0-5); Squamous Epithelial Cells - UA 0-5 SEEN /hpf (5-10); White Blood Cells 0-5 SEEN /hpf (0-5)
--- NOTE | 2022-08-03 17:40 | CT_ITS ---
INDICATION: abdominal distension. CARLOS ALBERTO and Acute liver injury EXAMINATION: CT Abdomen And Pelvis W/O Contrast Injection TECHNIQUE: Helically acquired images were obtained of the abdomen and pelvis without the use of IV contrast. A radiation dose optimization technique was used for this scan. Oral contrast: None. COMPARISON: 03/31/2020 FINDINGS: Evaluation of the solid organs and vascular structures is limited without intravenous contrast. Visualized lung bases: Stable small left loculated pleural effusion versus empyema. Stable rounded atelectasis at the left lung base. There is evidence of calcified left pleural plaques. Mild degree of a right basilar scarring. Liver: Unremarkable Gallbladder: Unremarkable Spleen: Unremarkable Pancreas: Unremarkable Adrenal Glands: Unremarkable Kidneys: Unremarkable Vasculature: Severe aortoiliac atherosclerotic disease. GI Tract: Hiatal hernia. There is circumferential rectal wall thickening with surrounding fat stranding. There is also fat stranding in the presacral space.. Lymphadenopathy: None Peritoneum: No ascites. Bladder: Unremarkable Reproductive organs: Unremarkable Bones/Soft tissues: There are diffuse degenerative changes of the spine. Grade 1 retrolisthesis L2 on L3 and L3 on L4. CT/Abdomen/Pelvis without Cont IMPRESSION: No evidence of hydronephrosis or obstructing stone. Findings suspicious for proctitis. Stable small left loculated pleural effusion versus empyema. Stable rounded atelectasis at the left lung base. Grade 1 retrolisthesis L2 on L3 and L3 on L4. Electronically Signed: Xavier Villalobos MD at 18:23 EST ,
--- NOTE | 2022-08-03 17:52 | HP.PCM.HOS_ITS ---
HPI - General General Date of Admission: 08/03/22 Date of Service: 08/03/22 Chief Complaint: Altered mental status, abnormal labs sent from assisted HPI Narrative REDDY WHITT, is a 82 F with multiple comorbidities, DNR CC at [facility] was sent because of altered mental status. Patient has history of dementia from previous stroke and multiple comorbidities was found more confused and disoriented. As per assisted vitals blood pressure 102/61, heart rate 68, pulse ox 94% on room air blood sugar 87. In ED, she was found hypoxic 73% on room air. Patient also looks mild short of breath. Patient was last admitted in March 2020 for generalized weakness confusion altered mental status. As per ER physician's not able to get any history. I tried myself but patient cannot give meaningful history. She is not able to comprehend or answer. She also has impaired vision. She looks mild short of breath. Her abdomen seems distended with midline old surgical scar. She had urine collected in ED and was about 300 mL dark-colored as per nursing staff. She is not able to tell about abdominal pain, or bowel movement but daily states he does not have burning micturition. She is not able to teleport chest pain pressure or tightness but looks mild short of breath. snf in ED she was found to have elevated BUN/creatinine, 76/3.17 with BUN/creatinine ratio 24, bicarb 33 suggestive of volume contraction. Her liver chemistry also elevated along with total bilirubinemia. Detail labs, EKG and chest x-ray discussed in assessment plan. [facility] Medical History Cardiac defibrillator in place Diabetes mellitus heart cath Heart disease Left arm surgery Pacemaker Stroke Home Medications anastrozole 1 mg tablet 1 mg PO DAILY CANCER 03/02/20 [History Last Taken 08/02/22] aspirin 81 mg tablet,delayed release 81 mg PO DAILY@0800 HEART HEALTH 03/02/20 [History Last Taken 08/02/22] atorvastatin 80 mg tablet 80 mg PO QHS CHOLESTEROL 03/02/20 [History Last Taken 08/02/22] isosorbide mononitrate 30 mg tablet,extended release 24 hr 30 mg PO DAILY BP 03/02/20 [History Last Taken 08/02/22] losartan 25 mg tablet 25 mg PO DAILY HTN 03/02/20 [History Last Taken 08/02/22] melatonin 3 mg tablet 6 mg PO QHS SLEEP 03/02/20 [History Last Taken 08/02/22] metoprolol succinate 50 mg tablet,extended release 24 hr 25 mg PO DAILY HEART 03/02/20 [History Last Taken 08/02/22] ondansetron HCl 4 mg tablet 4 mg PO Q6H PRN PRN Nausea/Vomiting 03/02/20 [Histo ry Last Taken 07/31/22] polyethylene glycol 3350 17 gram oral powder packet 17 gm PO BID CONSTIPATION 03/02/20 [History Last Taken 08/02/22] furosemide 40 mg tablet 40 mg PO DAILY FLUID ##0 03/06/20 [Rx Last Taken 08/03/22] tamsulosin 0.4 mg capsule 0.4 mg PO DAILY@1730 Bladder 03/06/20 [History Last Taken 08/02/22] lactulose 20 gram/30 mL oral solution 20 gm PO DAILY Check with primary doctor 04/01/20 [History Last Taken 08/02/22] acetaminophen 500 mg tablet 1,000 mg PO Q6H PRN PRN Pain Score 1-05/3004/06/20 [Rx Last Taken 07/29/22] cetirizine 5 mg tablet 5 mg PO DAILY 07/29/22 [History Last Taken 08/02/22] cilostazol 50 mg tablet 50 mg PO BID 07/29/22 [History Last Taken 08/02/22] fluoxetine 10 mg capsule 10 mg PO DAILY DEPRESSION 07/29/22 [History Last Taken 08/02/22] insulin glargine 100 unit/mL (3 mL) subcutaneous pen (Lantus Solostar U-100 Insulin) 30 unit subcut BID 07/29/22 [History Last Taken 08/02/22] insulin lispro 100 unit/mL subcutaneous pen (Humalog KwikPen (U-100) Insulin) See Protocol subcut TID 08/03/22 [History Last Taken 08/03/22] menthol 0.44 %-zinc oxide 20.6 % topical ointment 1 applic TOPICAL 0600,2200 SKIN 08/03/22 [History Last Taken 08/03/22] mineral oil-isopropyl myristat lotion 1 applic topical BID DRY SKIN 08/03/22 [History Last Taken Unknown] oxycodone 10 mg tablet 10 mg PO Q6H PRN Severe Pain (Scale Score 7-10) 08/03/22 [History Last Taken 08/03/22] pantoprazole 20 mg tablet,delayed release 20 mg PO BID GERD 08/03/22 [History Last Taken 08/02/22] polysaccharide iron complex 150 mg iron capsule (Ferrex) 150 mg PO DAILY SUPPLEMENT 08/03/22 [History Last Taken 08/02/22] sennosides 8.6 mg-docusate sodium 50 mg tablet 1 tablet PO BID CONSTIPATION 08/03/22 [History Last Taken 08/02/22] Allergy/AdvReac Type Severity Reaction Status Date / Time amoxicillin [From Augmentin] Allergy PT UNSURE Verified 08/03/22 13:19 OF REACTION clavulanic acid Allergy PT UNSURE Verified 08/03/22 13:19 [From Augmentin] OF REACTION Iodinated Contrast Media Allergy Anaphylaxis Verified 08/03/22 13:19 [DYEE] levofloxacin [From Levaquin] Allergy Upset Verified 08/03/22 13:19 Stomach loratadine [From Claritin] Allergy PT UNSURE Verified 08/03/22 13:19 OF REACTION hydrocodone bitartrate AdvReac Nausea/Vom/ Verified 08/03/22 13:19 [From Vicodin] Diarrhea iodine AdvReac Nausea/Vom/ Verified 08/03/22 13:19 Diarrhea Family History Mother Arthritis Surgical History History of appendectomy History of cataract extraction History of cholecystectomy History of hernia repair History of open heart surgery History of tonsillectomy Social History Smoking Status: Never smoker ROS ROS Narrative Patient has history of prior stroke and dementia and worked up she looks more co nfused therefore detailed 14 ROS unobtainable. Review of Systems ROS Unobtainable: due to encephalopathy, due to mental condition and due to mental status Vital Signs Vital Signs Vital Signs: 08/03/22 13:14 08/03/22 13:13 08/03/22 16:47 Temperature 97.7 F L Temperature Source Temporal Pulse Rate 86 83 Respiratory Rate 17 20 H Blood Pressure 122/45 H 103/45 L Blood Pressure Mean 70 64 Pulse Ox 73 92 97 Oxygen Delivery Method Room Air Nasal Cannula Room Air Oxygen Flow Rate (L/min) 5 08/03/22 17:16 08/03/22 17:33 Temperature 98.2 F Temperature Source Temporal Pulse Rate 72 Respiratory Rate 16 Blood Pressure 119/44 L Blood Pressure Mean 69 Pulse Ox 74 96 Oxygen Delivery Method Room Air Nasal Cannula Oxygen Flow Rate (L/min) 5 Weight Weight: 203 lb 0.732 oz Body Mass Index (BMI) 33.7 Physical Exam Narrative Physical exam General: Awake, confused, disoriented. Obesity grade 3 BMI 33.8 kg/m? HEENT: Atraumatic, PERRLA, EOMI, Normocephalic. Icterus present Oral: Oral mucosa dry. Deep oropharyngeal structures could not be visualized. Neck: Supple, No JVD, Negative Carotid Bruits Lungs: Air entry diminished in bilateral lung bases. No crepitation/rhonchi Cardiovascular: Paced rhythm, irregular, PVC, Normal S1, Normal S2, No murmurs Abdomen: Bowel Sounds sluggish, soft and nontender. Abdomen distended. Per rectal exam in presence of RN, Yennifer: Suboptimal exam as she could not lay down left lateral, done in supine position. Patient could not tolerate deep digital exam. Fecal staining of finger. No bloody stain. No mass in anal canal or hard stool palpable. : 300 mL dark-colored. Patient denies burning micturition but patient is confused. No renal angle tenderness. No suprapubic tenderness. Extremities: Bilateral chronic leg nonpitting Edema, Capillary Refill Less than 3 Seconds Skin: No rashes, No breakdown Musculoskeletal: ROM severely restricted. Passive movement is stiff. Painful on flexion extension. Neurological: Detailed neuro exam unobtainable. Muscle strength 4/5 but patient does not follow commands. Psych/Mental Status: Flat affect. Results Lab / Micro Data Result Diagrams: 08/03/22 13:20 08/03/22 13:20 Labs: Laboratory Results - last 24 hr 08/03/22 13:20: WBC 11.5 H, RBC 3.36 L, Hgb 9.7 L, Hct 31.3 L, MCV 93.2, MCH 28.9, MCHC 31.0 L, RDW Std Deviation 49.2 H, RDW Coeff of Gunnar 14.7 H, Plt Count 176, MPV 11.6, Immature Gran % (Auto) 0.500, Neut % (Auto) 78.3 H, Lymph % (Auto) 8.9 L, Coffee % (Auto) 11.5 H, Eos % (Auto) 0.5, Baso % (Auto) 0.3, Absolute Neuts (auto) 9.0 H, Absolute Lymphs (auto) 1.02, Nucleated RBC % 0.2 08/03/22 13:20: Sodium 140, Potassium 4.5, Chloride 101, Carbon Dioxide 33.0 H, Anion Gap 6, BUN 76 H, Creatinine 3.17 H, Estim Creat Clear Calc 12.74, Est GFR (MDRD) Af Amer 18 L, Est GFR (MDRD) Non-Af 15 L, BUN/Creatinine Ratio 24.0 H, Glucose 76, Calcium 8.7, Total Bilirubin 4.10 H, AST 192 H, ALT 146 H, Alkaline Phosphatase 259 H, Total Protein 7.0, Albumin 2.6 L, Globulin 4.4 H, Albumin/Globulin Ratio 0.6 L 08/03/22 15:19: Urine Color Melissa, Urine Clarity Sl. Cloudy, Urine pH 5.0, Ur Specific [place] 1.015, Urine Protein 30 H, Urine Glucose (UA) Normal, Urine Ketones Negative, Urine Occult Blood 50 H, Urine Nitrite Negative, Urine Bilirubin 3 H, Urine Urobilinogen 4 H, Ur Leukocyte Esterase 25 H, Urine RBC 0 SEEN, Urine WBC 0-5 SEEN, Ur Squamous Epith Cells 0-5 SEEN, Amorphous Sediment 1+, Urine Bacteria 0 SEEN, Hyaline Casts 0-5 SEEN, Urine Mucus 0 SEEN Micro: Microbiology 08/03/22 14:39 Nasal Secretion SARS-CoV-2 & FLU Antigen (Rapid) - Final Rhythm Strip Rhythm Strip: A-fib Rate: 85 Ectopy: None Radiology Impression Brain CT 08/03/22 14:26 IMPRESSION: Chronic involutional changes of the brain. Electronically Signed: Wiliam Hernandez MD at 15:16 EST , Chest X-Ray 08/03/22 14:47 IMPRESSION: Stable pleural parenchymal changes at the left lung base. Electronically Signed: Wiliam Hernandez MD at 15:12 EST , Assessment & Plan Assessment/Plan (1) AMS (altered mental status): (2) Acute kidney injury: (3) Acute liver disease: PLAN: Plan The patient is a 82-year-old female with multiple comorbidities sent from [facility] for altered mental status on top of dementia and a stroke and abnormal labs 1. CARLOS ALBERTO seems most likely prerenal but cannot rule out obstructive uropathy: [facility] catheter ordered as abdomen is distended and for accurate intake and output measurement. Patient baseline creatinine about 1.5-1.7 noticed in MayJune 2022. Creatinine upon high 3.73 on 10/03, mild decrease 3.34 and 23.17. BUN elevated 79. CT abdomen and pelvis without contrast ordered as patient abdomen is distended and rule out obstructive uropathy. Nephrology consult. Patient had 1 L of normal saline bolus in ED and 1 more liter bolus ordered. Continue 100 mL/h after that. Hold nephrotoxic medications. 2. Acute liver injury, exact etiology unclear: Patient bilirubin found 2.3 on 08/02, increased doubled 4.1 on 08/03. No differential available. Patient also has increasing trend of transaminases and alkaline phosphatase. CT abdomen ordered. Liver ultrasound ordered for tomorrow AM. 3. Altered mental status/acute encephalopathy possible metabolic on baseline dementia, previous stroke: Continue baby aspirin. PT OT speech therapy evaluation. Patient was last admitted in March 2022 for debility, generalized weakness and earlier in 2021 she had a stroke. Rapid SARS-CoV-2 and flu antigen negative. Hold sedative/SSRI medications. Chest x-ray image reviewed shows left lower lobe and CP angle obliteration similar to previous x-ray 11/26/2021. Has AICD. 4. Chronic normocytic normochromic anemia, anemia of chronic disease: H&H 9.7/31.3. Mild leukocytosis. Platelet count 176,000. Neutrophils 78.3% 5. 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 Hold nephrotoxic medications losartan. 6. History of DVT: Xarelto was discontinued for patient with history of GI bleed. In March 2022, venous duplex was negative. Venous duplex is ordered. 7. Type 2 diabetes mellitus: Medications on hold.?? Accu-Chek before meals and at bedtime coverage Humalog sliding scale. 7.? Hyperlipidemia: Hold statin because of acute liver injury ? 8.? History of breast cancer: On Arimidex. Living will/advanced directive/end of life care: Patient facesheet from the assisted and states DNR CC. Patient is not awake to confirm that. While it seems patient has living will as per documentation from facesheet. We will maintain DNRCC. Total time spent in [id number] encounter in discussion of advanced directive 16 minutes. Charges/Coding Visit Charges Inpatient E&M: 61493 Init Hosp L3 Procedures Hospitalists Procedures: 91225 Advncd Care Plan 30 Min
[2022-08-03 18:15] LABS: Magnesium 2.8 mg/dL (1.6-2.6); Phosphorus 4.3 mg/dL (2.5-4.9)
[2022-08-03] MEDS: 0.9% Normal Saline 1,000 ML 999 ML IV (18:30)
[2022-08-03 18:31] LABS: Bilirubin, Direct 2.91 mg/dL (0.00-0.30)
--- NOTE | 2022-08-03 18:48 | VDLE_ITS ---
Reason For Study: Swelling RIGHT LEFT CFV is compressible, spontaneous, phasic, CFV is compressible, spontaneous, phasic, competent and demonstrates normal competent, and demonstrates normal augmentation. augmentation. FV is compressible, spontaneous, phasic, FV is compressible, spontaneous, phasic, competent and demonstrates normal competent and demonstrates normal augmentation. augmentation. PTV is compressible. POP V is compressible, spontaneous, phasic, RT PerV is compressible. competent and demonstrates normal PopV is partially noncompressible with augmentation. minimal venous flow. T/P Trunk is compressible. Acute deep vein thrombosis is noted in the PTV is compressible. right PopV and T/P trunk. LT PerV is compressible. Acute superficial vein thrombosis is noted in GSV was previously harvested below the knee. the right proximal thigh GSV. Thrombus is 0.2 Acute superficial vein thrombosis is noted cm from the junction with the CFV. in the proximal thigh GSV. Thrombus is 1.8 Procedure cm from the junction with the CFV. This is a venous duplex using B-mode, color flow and spectral Doppler. Exam performed portable in patient room. A preliminary report was called and/or faxed to Dr. Anthony. VL/Venous Duplex US - Kermit Extrem Interpretation Summary Acute deep venous thrombosis right popliteal and tibioperoneal trunk. Superficial thrombophlebitis right great saphenous vein of the thigh with throm bus noted to extend literally to 0.2 cm from the common femoral vein junction. No evidence for acute deep venous thrombosis left lower extremity Superficial thrombophlebitis left proximal thigh great saphenous vein extending to 1.8 cm from the common femoral vein junction Harvested left below-knee great saphenous vein Ordering Physician: Armando Anthony Referring Physician: Jordan Shelton Performed By: Afshan Bourne RVT
[2022-08-03] MEDS: Menthol/Lanolin/Calamine/Znox 113 GM Tube 1 APPLIC TOPICAL (20:32)
[2022-08-03] MEDS: Pantoprazole Sodium 40 MG Tablet PO (20:36)
[2022-08-03] MEDS: Cilostazol 50 MG Tablet PO (20:36)
[2022-08-03] MEDS: Senna/Docusate Sodium 1 Tablet 2 TABLET PO (20:36)
[2022-08-03] MEDS: 0.9% Normal Saline 1,000 ML 100 ML IV (20:38)
[2022-08-03] MEDS: Heparin Injection (Vial) 5,000 UNIT/ML VIAL 5000 UNIT SC (20:40)
[2022-08-03 23:35] LABS: Bedside Glucose 90 mg/dL (74-106)
[2022-08-04 05:29] VITALS: BP 130/46; PULSE 82; RESP 18; TEMP 36.9; O2SAT 94
[2022-08-04] MEDS: Heparin Injection (Vial) 5,000 UNIT/ML VIAL 5000 UNIT SC (05:35)
[2022-08-04] MEDS: Menthol/Lanolin/Calamine/Znox 113 GM Tube 1 APPLIC TOPICAL ×2 (05:35→22:20)
[2022-08-04] MEDS: 0.9% Normal Saline 1,000 ML 100 ML IV ×2 (05:35→16:07)
--- NOTE | 2022-08-04 05:55 | US_ITS ---
STUDY: ABDOMINAL ULTRASOUND - RIGHT UPPER QUADRANT REASON FOR VISIT: Female, 82 years old abnl labs TECHNIQUE: Ultrasound evaluation of the right upper quadrant was performed with real-time and static saba-scale imaging. TECHNICAL QUALITY: Adequate. COMPARISON: Comparison is made with prior CT scan done of the pelvis dated 08/03/2022. FINDINGS: Liver: The liver measures 15.3 cm. There is increased echogenicity consistent with fatty infiltration. The bile ducts are within normal limits. There is hepatic color flow. The direction of portal flow is hepatopetal. There is no demonstrated mass lesion. Gallbladder: The patient states status post cholecystectomy. In the gallbladder fossa, is a 2.2 cm x 1.6 cm x 1.4 cm cystic structure. Common Bile Duct (C.B.D.): The common bile duct measures 3.2 mm. Pancreas: There is nonvisualization of the pancreas due to overlying bowel gas. Right Kidney: Normal size of the right kidney. The right kidney measures 10.4 cm x 4.7 cm x 5.3 cm. Normal renal cortex. The right cortex measures 1.5 cm. There is no demonstrated renal mass or cyst. There is fullness of the right renal pelvis. US/Abdomen Limited IMPRESSION: Status post cholecystectomy by patient history. There is a 2.2 cm x 1.6 cm x 1.4 cm cystic structure in the gallbladder fossa. Electronically Signed: Wiliam Hernandez MD at 15:15 EST ,
[2022-08-04 06:54] VITALS: O2SAT 94
[2022-08-04 07:00] LABS: Bedside Glucose 94 mg/dL (74-106)
[2022-08-04 07:19] LABS: Absolute Lymphocyte Count 0.94 X10^3/uL (0.83-4.51); Absolute Neutrophil Count 6.7 X10^3/uL (2.0-7.7); Basophil# 0.03 X10^3/uL; Basophil% 0.3 % (0-1); Eosinophil# 0.26 X10^3/uL; Eosinophils% 2.9 % (0-5); Hematocrit 25.6 % (37-47); Hemoglobin 8.1 g/dL (12.0-15.0); Lymphocyte # 0.94 X10^3/ul (0.83-4.51); Lymphocyte % 10.6 % (19-41); Mean Corp Hgb Conc 31.6 g/dL (32-36); Mean Corpuscular Hgb 29.5 pg (27.0-32.0); Mean Corpuscular Volume 93.1 fL (81-99); Mean Platelet Vol. 10.5 fl (6.2-12.0); Monocyte# 0.94 X10^3/uL; Monocyte% 10.6 % (0-10); NRBC Flagged by Analyzer 0 % (0-5); Neutrophil % 75.3 % (47-70); Platelet Count 145 K/mm3 (150-450); Red Blood Count 2.75 M/mm3 (4.2-5.4); White Blood Count 8.9 K/mm3 (4.4-11.0)
[2022-08-04 08:00] LABS: ALB/GLOB Ratio 0.6 RATIO (0.9-2.4); AST(SGOT) 133 U/L (15-37); Alanine Aminotransfer ALT/SGPT 101 U/L (13-56); Alkaline Phosphatase 224 U/L (45-117); Anion Gap 6 (5-15); BUN 68 mg/dL (7-18); BUN/Creat Ratio 27.6 RATIO (10-20); Calcium,Total 7.9 mg/dL (8.5-10.1); Chloride 107 mmol/L (98-107); Creatinine, Serum 2.46 mg/dL (0.55-1.02); EST Glomerular Filtration Rate 20 mL/min (>60); Est Glom Filt Rate - Afr Amer 24 mL/min (>60); Estimated Creatinine Clearance 16.41 ml/min; Globulin 3.4 g/dL (2.2-4.2); Glucose 100 mg/dL (74-106); Potassium 4.2 mmol/L (3.5-5.1); Protein, Total 5.4 g/dL (6.4-8.2); Sodium Level 141 mmol/L (136-145); Thyroid Stim Hormone (TSH) 0.66 uIU/mL (0.358-3.74)
--- NOTE | 2022-08-04 09:07 | PN.HOSP_ITS ---
Subjective Subjective Follow-up for multiple issues including abdominal distention, leg swelling, CARLOS ALBERTO and acute liver injury Objective Data Objective Data Vital Signs: Vital Signs Temp Pulse Resp BP Pulse Ox O2 Del Method O2 Flow Rate 98.5 F 82 18 130/46 H 94 Nasal Cannula 2 08/04/22 05:29 08/04/22 05:29 08/04/22 05:29 08/04/22 05:29 08/04/22 06:54 08/04/22 06:54 08/04/22 06:54 Oxygen Flow Rate (L/min) 2 Oxygen Delivery Method Nasal Cannula Weight: 200 lb 6.4 oz Body Mass Index (BMI) 32.8 Intake & Output: Intake and Output for Last 24 Hours 08/02/22 08/03/22 08/04/22 23:59 23:59 23:59 Intake Total 1999 / 1999 1238.33 / 1238.33 Output Total 400 / 400 350 / 350 Balance 1600 / 1600 888.33 / 888.33 Lab / Micro Data Result Diagrams: 08/04/22 06:55 08/04/22 06:55 Labs: Laboratory Results - last 24 hr 08/03/22 13:20: WBC 11.5 H, RBC 3.36 L, Hgb 9.7 L, Hct 31.3 L, MCV 93.2, MCH 28.9, MCHC 31.0 L, RDW Std Deviation 49.2 H, RDW Coeff of [place] 14.7 H, Plt Count 176, MPV 11.6, Immature Gran % (Auto) 0.500, Neut % (Auto) 78.3 H, Lymph % (Auto) 8.9 L, [place] % (Auto) 11.5 H, Eos % (Auto) 0.5, Baso % (Auto) 0.3, Absolute Neuts (auto) 9.0 H, Absolute Lymphs (auto) 1.02, Nucleated RBC % 0.2 08/03/22 13:20: Sodium 140, Potassium 4.5, Chloride 101, Carbon Dioxide 33.0 H, Anion Gap 6, BUN 76 H, Creatinine 3.17 H, Estim Creat Clear Calc 12.74, Est GFR (MDRD) Af Amer 18 L, Est GFR (MDRD) Non-Af 15 L, BUN/Creatinine Ratio 24.0 H, Glucose 76, Calcium 8.7, Total Bilirubin 4.10 H, AST 192 H, ALT 146 H, Alkaline Phosphatase 259 H, Total Protein 7.0, Albumin 2.6 L, Globulin 4.4 H, Albumin/Globulin Ratio 0.6 L 08/03/22 13:20: Phosphorus 4.3, Magnesium 2.8 H 08/03/22 13:20: Direct Bilirubin 2.91 H 08/03/22 15:19: Urine Color Melissa, Urine Clarity Sl. Cloudy, Urine pH 5.0, Ur Specific [place] 1.015, Urine Protein 30 H, Urine Glucose (UA) Normal, Urine Ketones Negative, Urine Occult Blood 50 H, Urine Nitrite Negative, Urine Biliru bin 3 H, Urine Urobilinogen 4 H, Ur Leukocyte Esterase 25 H, Urine RBC 0 SEEN, Urine WBC 0-5 SEEN, Ur Squamous Epith Cells 0-5 SEEN, Amorphous Sediment 1+, Urine Bacteria 0 SEEN, Hyaline Casts 0-5 SEEN, Urine Mucus 0 SEEN 08/03/22 20:44: POC Glucose 90 08/04/22 05:34: POC Glucose 94 08/04/22 06:55: WBC 8.9, RBC 2.75 L, Hgb 8.1 L, Hct 25.6 L, MCV 93.1, MCH 29.5, MCHC 31.6 L, RDW Std Deviation 50.0 H, RDW Coeff of [place] 15.0 H, Plt Count 145 L, MPV 10.5, Immature Gran % (Auto) 0.300, Neut % (Auto) 75.3 H, Lymph % (Auto) 10.6 L, [place] % (Auto) 10.6 H, Eos % (Auto) 2.9, Baso % (Auto) 0.3, Absolute Neuts (auto) 6.7, Absolute Lymphs (auto) 0.94, Nucleated RBC % 0 08/04/22 06:55: Sodium 141, Potassium 4.2, Chloride 107, Carbon Dioxide 28.0, Anion Gap 6, BUN 68 H, Creatinine 2.46 H, Estim Creat Clear Calc 16.41, Est GFR (MDRD) Af Amer 24 L, Est GFR (MDRD) Non-Af 20 L, BUN/Creatinine Ratio 27.6 H, Glucose 100, Calcium 7.9 L, Total Bilirubin 3.00 H, AST 133 H, ALT 101 H, Alkaline Phosphatase 224 H, Total Protein 5.4 L, Albumin 2.0 L, Globulin 3.4, Albumin/Globulin Ratio 0.6 L, TSH 0.66 Micro: Microbiology 08/03/22 14:39 Nasal Secretion SARS-CoV-2 & FLU Antigen (Rapid) - Final Radiography Diagnostic Testing: Radiology Impression Brain CT 08/03/22 14:26 IMPRESSION: Chronic involutional changes of the brain. Electronically Signed: Wiliam Hernandez MD at 15:16 EST , Chest X-Ray 08/03/22 14:47 IMPRESSION: Stable pleural parenchymal changes at the left lung base. Electronically Signed: Wiliam Hernandez MD at 15:12 EST , Abdomen/Pelvis CT 08/03/22 17:40 IMPRESSION: No evidence of hydronephrosis or obstructing stone. Findings suspicious for proctitis. Stable small left loculated pleural effusion versus empyema. Stable rounded atelectasis at the left lung base. Grade 1 retrolisthesis L2 on L3 and L3 on L4. Electronically Signed: Xavier Villalobos MD at 18:23 EST , Rhythm Strip Rhythm Strip: A-fib Rate: 85 Ectopy: None Physical Exam Narrative Physical exam General: Awake, comprehensible. Patient participates in conversation although little. Oriented x3. Obesity grade 3 BMI 33.8 kg/m? HEENT: Atraumatic, PERRLA, EOMI, Normocephalic. Icterus present Oral: Oral mucosa dry. Deep oropharyngeal structures could not be visualized. Neck: Supple, No JVD, Negative Carotid Bruits Lungs: Air entry diminished in bilateral lung bases. No crepitation/rhonchi Cardiovascular: Paced rhythm, irregular, PVC, Normal S1, Normal S2, No murmurs Abdomen: Bowel Sounds sluggish, soft and nontender. Abdomen distended. : Urine output clear about 1500 mL. Patient denies burning micturition but patient is confused. No renal angle tenderness. No suprapubic tenderness. Extremities: Bilateral chronic leg nonpitting Edema, Capillary Refill Less than 3 Seconds Skin: No rashes, No breakdown Musculoskeletal: ROM severely restricted. Passive movement is stiff. Painful on flexion extension. Neurological: Muscle strength 4/5 seems mainly due to physical deconditioning and edema. Psych/Mental Status: Flat affect. Assessment & Plan Assessment/Plan (1) AMS (altered mental status): (2) Acute kidney injury: (3) Acute liver disease: PLAN: Plan The patient is a 82-year-old female with multiple comorbidities sent from [facility] for altered mental status on top of dementia and a stroke and abnormal labs 1. CARLOS ALBERTO seems most likely prerenal but cannot rule out obstructive uropathy: [facility] catheter ordered as abdomen is distended and for accurate intake and output measurement. Patient baseline creatinine about 1.5-1.7 noticed in MayJune 2022. Creatinine upon high 3.73 on 10/03, mild decrease 3.34 and 23.17. BUN elevated 79. CT abdomen and pelvis without contrast ordered as patient abdomen is distended and rule out obstructive uropathy. Nephrology consult. Patient had 1 L of normal saline bolus in ED and 1 more liter bolus ordered. Continue 100 mL/h after that. Hold nephrotoxic medications. 08/04: There is improvement in creatinine. Electrolytes in normal range. Discussed with the chief customer officer. Agree with continuation of normal saline. CT abdomen does not show evidence of hydronephrosis or kidney stone. 2. Acute liver injury, exact etiology unclear: Patient bilirubin found 2.3 on 08/02, increased doubled 4.1 on 08/03. No differential available. Patient also has increasing trend of transaminases and alkaline phosphatase. CT abdomen ordered. Liver ultrasound ordered for tomorrow AM. 08/04: Improvement in patient's total bilirubin. TV yesterday was 4.1, TB 2.9 therefore mainly direct. Today's 3.0. Improvement in transaminases and alkaline phosphatase. 3. Altered mental status/acute encephalopathy possible metabolic on baseline dementia, previous stroke: Continue baby aspirin. PT OT speech therapy evaluation. Patient was last admitted in March 2022 for debility, generalized weakness and earlier in 2021 she had a stroke. Rapid SARS-CoV-2 and flu antigen negative. Hold sedative/SSRI medications. Chest x-ray image reviewed shows left lower lobe and CP angle obliteration similar to previous x-ray 11/26/2021. Has AICD. 08/04: Improvement in mental status but patient seems chronically physically and mentally debilitated possible dementia and previous stroke. PT and OT ordered. 4. Chronic normocytic normochromic anemia, anemia of chronic disease: H&H 9.7/31.3. Mild leukocytosis. Platelet count 176,000. Neutrophils 78.3% 5. 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 Hold nephrotoxic medications losartan. 6. History of DVT: Xarelto was discontinued for patient with history of GI bleed. In March 2022, venous duplex was negative. Venous duplex is ordered. 08/04: Patient has acute DVT of right popliteal and tibioperoneal trunk. Superficial thrombosis/thrombophlebitis of right GSV with thrombus extending to CFV junction. Superficial thrombophlebitis of left proximal GSV extending to 1.8 cm from CFV. Patient has been chronically bedridden. Patient dropped hemoglobin to 8.1 from 9.7 on heparin subcu therefore not good for Lovenox or NOACs. Heparin drip started without bolus for ED reversibility. 7. Type 2 diabetes mellitus: Medications on hold.?? Accu-Chek before meals and at bedtime coverage Humalog sliding scale. 08/04 glucose in 90s. 7.? Hyperlipidemia: Hold statin because of acute liver injury ? 8.? History of breast cancer: On Arimidex. Total time of the visit including total time spent in counseling or coordination of care, (more than 50% of the total time, spent in obtaining medical information from nurses and other ancillary care providers,explaining to the patient about labs, imaging, diagnosis and management of active complex medical conditions), discussion with technical support consultant, review of labs and imaging is 40 minutes. Microbiology Past 72 Hours 08/03/22 14:39 Nasal Secretion SARS-CoV-2 & FLU Antigen (Rapid) - Final Laboratory Results 08/03/22 13:20: Phosphorus 4.3, Magnesium 2.8 H 08/03/22 13:20: Direct Bilirubin 2.91 H 08/03/22 15:19: Urine Color Melissa, Urine Clarity Sl. Cloudy, Urine pH 5.0, Ur Specific [place] 1.015, Urine Protein 30 H, Urine Glucose (UA) Normal, Urine Ketones Negative, Urine Occult Blood 50 H, Urine Nitrite Negative, Urine Bilirubin 3 H, Urine Urobilinogen 4 H, Ur Leukocyte Esterase 25 H, Urine RBC 0 SEEN, Urine WBC 0-5 SEEN, Ur Squamous Epith Cells 0-5 SEEN, Amorphous Sediment 1+, Urine Bacteria 0 SEEN, Hyaline Casts 0-5 SEEN, Urine Mucus 0 SEEN 08/03/22 20:20: U Random Total Protein 71.8 H, Urine Creatinine 107.00, Protein/Creatinin Ratio 671 H 08/03/22 20:44: POC Glucose 90 08/04/22 05:34: POC Glucose 94 08/04/22 06:55: WBC 8.9, RBC 2.75 L, Hgb 8.1 L, Hct 25.6 L, MCV 93.1, MCH 29.5, MCHC 31.6 L, RDW Std Deviation 50.0 H, RDW Coeff of [place] 15.0 H, Plt Count 145 L, MPV 10.5, Immature Gran % (Auto) 0.300, Neut % (Auto) 75.3 H, Lymph % (Auto) 10.6 L, [place] % (Auto) 10.6 H, Eos % (Auto) 2.9, Baso % (Auto) 0.3, Absolute Neuts (auto) 6.7, Absolute Lymphs (auto) 0.94, Nucleated RBC % 0 08/04/22 06:55: Sodium 141, Potassium 4.2, Chloride 107, Carbon Dioxide 28.0, Anion Gap 6, BUN 68 H, Creatinine 2.46 H, Estim Creat Clear Calc 16.41, Est GFR (MDRD) Af Amer 24 L, Est GFR (MDRD) Non-Af 20 L, BUN/Creatinine Ratio 27.6 H, Glucose 100, Calcium 7.9 L, Total Bilirubin 3.00 H, AST 133 H, ALT 101 H, Alkaline Phosphatase 224 H, Total Protein 5.4 L, Albumin 2.0 L, Globulin 3.4, Albumin/Globulin Ratio 0.6 L, TSH 0.66 Living will/advanced directive/end of life care: Patient facesheet from the skilled nursing and states DNR CC. Patient is not awake to confirm that. While it seems patient has living will as per documentation from facesheet. We will maintain DNRCC. Total time spent in [id number] encounter in discussion of advanced directive 16 minutes. Charges/Coding Visit Charges Inpatient E&M: 02978 Subs Hosp L3
[2022-08-04 09:38] VITALS: BP 139/57; PULSE 66; RESP 18; TEMP 36.7; O2SAT 95
--- NOTE | 2022-08-04 11:32 | PCM.CONS.R ---
Documented by User: JAYRO Barragan 08/04/22 11:54 Assessment & Plan Assessment/Plan (1) Acute kidney failure: (2) AMS (altered mental status): (3) CKD (chronic kidney disease): (4) Abnormal LFTs: PLAN: Plan We were consulted for acute kidney injury superimposed on chronic kidney disease stage III. CARLOS ALBERTO likely prerenal likely from poor oral intake with concurrent losartan and diuretic use. With IV fluids renal function is improving. Recommend continue IV fluids for volume expansion for another day. Furosemide and losartan are on hold and recommend to continue holding as you are doing. At this time there is no acute indication for REHAB DEPARTMENT MANAGER as renal function is improving. No hyperkalemia, no metabolic acidosis and volume status acceptable with no overt fluid overload. Noncontrast CT did not show any hydronephrosis or obstructing stone, bladder unremarkable, liver unremarkable. Reviewed past creatinine trends, patient has evidence of elevated serum creatinine dating back to at least 2013, baseline creatinine ranging now around 1.4-1.7 as of June 2022. Patient may have diabetic kidney disease. Will obtain urine protein creatinine ratio. Albumin is 2.0. UA showed 30 protein, positive leukocyte esterase, no RBC, 50 occult blood. Urine culture sent and is pending. Blood pressures acceptable on Toprol and Imdur. Work-up is in progress for elevated LFTs. We will obtain a CPK level. Thank you for allowing us to participate in the care of Ms. Whitt, further orders forthcoming as hospitalization evolves. HPI Consult Data Date of Consult: 08/04/22 HPI Narrative HPI Narrative: REDDY WHITT, is a 82 F who currently resides at [facility], she has a history of dementia from past stroke, diabetes mellitus, breast cancer on anastrozole and coronary artery disease status post implanted defibrillator/pacemaker who was brought to the emergency room from [facility] for evaluation of altered mental status. Patient was recently seen in the ER on 07/29 after falling at the [facility], found to have nondisplaced fracture of left superior and inferior pubic rami and discharged back to [facility] with oxycodone. We were consulted for acute kidney injury. Patient is confused therefore information gathered from the chart. On August 02 creatinine 3.73, yesterday creatinine was 3.17 and today her creatinine is 2.46 mg/dL. Patient did have noncontrast CT of abdomen which did not show any evidence of hydronephrosis or obstructing stone. [facility] Medical History Cardiac defibrillator in place Diabetes mellitus heart cath Heart disease Left arm surgery Pacemaker Stroke Home Medications anastrozole 1 mg tablet 1 mg PO DAILY CANCER 03/02/20 [History Last Taken 08/02/22] aspirin 81 mg tablet,delayed release 81 mg PO DAILY@0800 HEART HEALTH 03/02/20 [History Last Taken 08/02/22] atorvastatin 80 mg tablet 80 mg PO QHS CHOLESTEROL 03/02/20 [History Last Taken 08/02/22] isosorbide mononitrate 30 mg tablet,extended release 24 hr 30 mg PO DAILY BP 03/02/20 [History Last Taken 08/02/22] losartan 25 mg tablet 25 mg PO DAILY HTN 03/02/20 [History Last Taken 08/02/22] melatonin 3 mg tablet 6 mg PO QHS SLEEP 03/02/20 [History Last Taken 08/02/22] metoprolol succinate 50 mg tablet,extended release 24 hr 25 mg PO DAILY HEART 03/02/20 [History Last Taken 08/02/22] ondansetron HCl 4 mg tablet 4 mg PO Q6H PRN PRN Nausea/Vomiting 03/02/20 [History Last Taken 07/31/22] polyethylene glycol 3350 17 gram oral powder packet 17 gm PO BID CONSTIPATION 03/02/20 [History Last Taken 08/02/22] furosemide 40 mg tablet 40 mg PO DAILY FLUID ##0 03/06/20 [Rx Last Taken 08/03/22] tamsulosin 0.4 mg capsule 0.4 mg PO DAILY@1730 Bladder 03/06/20 [History Last Taken 08/02/22] lactulose 20 gram/30 mL oral solution 20 gm PO DAILY Check with primary doctor 04/01/20 [History Last Taken 08/02/22] acetaminophen 500 mg tablet 1,000 mg PO Q6H PRN PRN Pain Score 1-10/10 04/06/20 [Rx Last Taken 07/29/22] cetirizine 5 mg tablet 5 mg PO DAILY ALLERGIES 07/29/22 [History Last Taken 08/02/22] cilostazol 50 mg tablet 50 mg PO BID HEART 07/29/22 [History Last Taken 08/02/22] fluoxetine 10 mg capsule 10 mg PO DAILY DEPRESSION 07/29/22 [History Last Taken 08/02/22] insulin glargine 100 unit/mL (3 mL) subcutaneous pen (Lantus Solostar U-100 Insulin) 30 unit subcut BID DM 07/29/22 [History Last Taken 08/02/22] insulin lispro 100 unit/mL subcutaneous pen (Humalog KwikPen (U-100) Insulin) See Protocol subcut TID DM 08/03/22 [History Last Taken 08/03/22] menthol 0.44 %-zinc oxide 20.6 % topical ointment 1 applic TOPICAL 0600,2200 SKIN 08/03/22 [History Last Taken 08/03/22] mineral oil-isopropyl myristat lotion 1 applic topical BID DRY SKIN 08/03/22 [History Last Taken 08/03/22] oxycodone 10 mg tablet 10 mg PO Q6H PRN Severe Pain (Scale Score 7-10) 08/03/22 [History Last Taken 08/03/22] pantoprazole 20 mg tablet,delayed release 20 mg PO BID GERD 08/03/22 [History Last Taken 08/02/22] polysaccharide iron complex 150 mg iron capsule (Ferrex) 150 mg PO DAILY SUPPLEMENT 08/03/22 [History Last Taken 08/02/22] sennosides 8.6 mg-docusate sodium 50 mg tablet 1 tablet PO BID CONSTIPATION 08/03/22 [History Last Taken 08/02/22] Allergy/AdvReac Type Severity Reaction Status Date / Time amoxicillin [From Augmentin] Allergy PT UNSURE Verified 08/03/22 13:19 OF REACTION clavulanic acid Allergy PT UNSURE Verified 08/03/22 13:19 [From Augmentin] OF REACTION Iodinated Contrast Media Allergy Anaphylaxis Verified 08/03/22 13:19 [DYEE] levofloxacin [From Levaquin] Allergy Upset Verified 08/03/22 13:19 Stomach loratadine [From Claritin] Allergy PT UNSURE Verified 08/03/22 13:19 OF REACTION hydrocodone bitartrate AdvReac Nausea/Vom/ Verified 08/03/22 13:19 [From Vicodin] Diarrhea iodine AdvReac Nausea/Vom/ Verified 08/03/22 13:19 Diarrhea Family History Mother Arthritis Surgical History History of appendectomy History of cataract extraction History of cholecystectomy History of hernia repair History of open heart surgery History of tonsillectomy Social History Smoking Status: Never smoker ROS ROS Narrative As in HPI and past medical history Physical Exam Narrative Alert to name only, confused to place and time. Sitting in chair. No apparent distress S1, S2 RRR Lung sounds clear anteriorly and posteriorly. No wheezes, rhonchi or rales noted Abdomen soft, nontender, positive bowel sounds x4 quadrants No edema noted bilateral lower legs feet or thighs Indwelling Hernandez with clear urine in bag Lab / Micro Data Result Diagrams: 08/05/22 05:55 08/05/22 05:55 Labs: Laboratory Results - last 24 hr 08/03/22 13:20: WBC 11.5 H, RBC 3.36 L, Hgb 9.7 L, Hct 31.3 L, MCV 93.2, MCH 28.9, MCHC 31.0 L, RDW Std Deviation 49.2 H, RDW Coeff of Gunnar 14.7 H, Plt Count 176, MPV 11.6, Immature Gran % (Auto) 0.500, Neut % (Auto) 78.3 H, Lymph % (Auto) 8.9 L, Maury % (Auto) 11.5 H, Eos % (Auto) 0.5, Baso % (Auto) 0.3, Absolute Neuts (auto) 9.0 H, Absolute Lymphs (auto) 1.02, Nucleated RBC % 0.2 08/03/22 13:20: Sodium 140, Potassium 4.5, Chloride 101, Carbon Dioxide 33.0 H, Anion Gap 6, BUN 76 H, Creatinine 3.17 H, Estim Creat Clear Calc 12.74, Est GFR (MDRD) Af Amer 18 L, Est GFR (MDRD) Non-Af 15 L, BUN/Creatinine Ratio 24.0 H, Glucose 76, Calcium 8.7, Total Bilirubin 4.10 H, AST 192 H, ALT 146 H, Alkaline Phosphatase 259 H, Total Protein 7.0, Albumin 2.6 L, Globulin 4.4 H, Albumin/Globulin Ratio 0.6 L 08/03/22 13:20: Phosphorus 4.3, Magnesium 2.8 H 08/03/22 13:20: Direct Bilirubin 2.91 H 08/03/22 15:19: Urine Color Melissa, Urine Clarity Sl. Cloudy, Urine pH 5.0, Ur Specific [place] 1.015, Urine Protein 30 H, Urine Glucose (UA) Normal, Urine Ketones Negative, Urine Occult Blood 50 H, Urine Nitrite Negative, Urine Bilirubin 3 H, Urine Urobilinogen 4 H, Ur Leukocyte Esterase 25 H, Urine RBC 0 SEEN, Urine WBC 0-5 SEEN, Ur Squamous Epith Cells 0-5 SEEN, Amorphous Sediment 1+, Urine Bacteria 0 SEEN, Hyaline Casts 0-5 SEEN, Urine Mucus 0 SEEN 08/03/22 20:44: POC Glucose 90 08/04/22 05:34: POC Glucose 94 08/04/22 06:55: WBC 8.9, RBC 2.75 L, Hgb 8.1 L, Hct 25.6 L, MCV 93.1, MCH 29.5, MCHC 31.6 L, RDW Std Deviation 50.0 H, RDW Coeff of Gunnar 15.0 H, Plt Count 145 L, MPV 10.5, Immature Gran % (Auto) 0.300, Neut % (Auto) 75.3 H, Lymph % (Auto) 10.6 L, Maury % (Auto) 10.6 H, Eos % (Auto) 2.9, Baso % (Auto) 0.3, Absolute Neuts (auto) 6.7, Absolute Lymphs (auto) 0.94, Nucleated RBC % 0 08/04/22 06:55: Sodium 141, Potassium 4.2, Chloride 107, Carbon Dioxide 28.0, Anion Gap 6, BUN 68 H, Creatinine 2.46 H, Estim Creat Clear Calc 16.41, Est GFR (MDRD) Af Amer 24 L, Est GFR (MDRD) Non-Af 20 L, BUN/Creatinine Ratio 27.6 H, Glucose 100, Calcium 7.9 L, Total Bilirubin 3.00 H, AST 133 H, ALT 101 H, Alkaline Phosphatase 224 H, Total Protein 5.4 L, Albumin 2.0 L, Globulin 3.4, Albumin/Globulin Ratio 0.6 L, TSH 0.66 Micro: Microbiology 08/03/22 14:39 Nasal Secretion SARS-CoV-2 & FLU Antigen (Rapid) - Final Rhythm Strip Rhythm Strip: A-fib Rate: 85 Ectopy: None Radiology Impression Brain CT 08/03/22 14:26 IMPRESSION: Chronic involutional changes of the brain. Electronically Signed: Wiliam Hernandez MD at 15:16 EST , Chest X-Ray 08/03/22 14:47 IMPRESSION: Stable pleural parenchymal changes at the left lung base. Electronically Signed: Wiliam Hernandez MD at 15:12 EST , Abdomen/Pelvis CT 08/03/22 17:40 IMPRESSION: No evidence of hydronephrosis or obstructing stone. Findings suspicious for proctitis. Stable small left loculated pleural effusion versus empyema. Stable rounded atelectasis at the left lung base. Grade 1 retrolisthesis L2 on L3 and L3 on L4. Electronically Signed: Xavier Villalobos MD at 18:23 EST , Documented by User: Dr. Jonathon Garcia MD 08/05/22 14:27 Assessment & Plan Assessment/Plan (1) Acute kidney failure: (2) AMS (altered mental status): (3) CKD (chronic kidney disease): (4) Abnormal LFTs: HPI Consult Data Date of Consult: 08/05/22 [facility] Medical History Cardiac defibrillator in place Diabetes mellitus heart cath Heart disease Left arm surgery Pacemaker Stroke Home Medications anastrozole 1 mg tablet 1 mg PO DAILY CANCER 03/02/20 [History Last Taken 08/02/22] aspirin 81 mg tablet,delayed release 81 mg PO DAILY@0800 HEART HEALTH 03/02/20 [History Last Taken 08/02/22] atorvastatin 80 mg tablet 80 mg PO QHS CHOLESTEROL 03/02/20 [History Last Taken 08/02/22] isosorbide mononitrate 30 mg tablet,extended release 24 hr 30 mg PO DAILY BP 03/02/20 [History Last Taken 08/02/22] losartan 25 mg tablet 25 mg PO DAILY HTN 03/02/20 [History Last Taken 08/02/22] melatonin 3 mg tablet 6 mg PO QHS SLEEP 03/02/20 [History Last Taken 08/02/22] metoprolol succinate 50 mg tablet,extended release 24 hr 25 mg PO DAILY HEART 03/02/20 [History Last Taken 08/02/22] ondansetron HCl 4 mg tablet 4 mg PO Q6H PRN PRN Nausea/Vomiting 03/02/20 [History Last Taken 07/31/22] polyethylene glycol 3350 17 gram oral powder packet 17 gm PO BID CONSTIPATION 03/02/20 [History Last Taken 08/02/22] furosemide 40 mg tablet 40 mg PO DAILY FLUID ##0 03/06/20 [Rx Last Taken 08/03/22] tamsulosin 0.4 mg capsule 0.4 mg PO DAILY@1730 Bladder 03/06/20 [History Last Taken 08/02/22] lactulose 20 gram/30 mL oral solution 20 gm PO DAILY Check with primary doctor 04/01/20 [History Last Taken 08/02/22] acetaminophen 500 mg tablet 1,000 mg PO Q6H PRN PRN Pain Score 1-05/3004/06/20 [Rx Last Taken 07/29/22] cetirizine 5 mg tablet 5 mg PO DAILY ALLERGIES 07/29/22 [History Last Taken 08/02/22] cilostazol 50 mg tablet 50 mg PO BID HEART 07/29/22 [History Last Taken 08/02/22] fluoxetine 10 mg capsule 10 mg PO DAILY DEPRESSION 07/29/22 [History Last Taken 08/02/22] insulin glargine 100 unit/mL (3 mL) subcutaneous pen (Lantus Solostar U-100 Insulin) 30 unit subcut BID DM 07/29/22 [History Last Taken 08/02/22] insulin lispro 100 unit/mL subcutaneous pen (Humalog KwikPen (U-100) Insulin) See Protocol subcut TID DM 08/03/22 [History Last Taken 08/03/22] menthol 0.44 %-zinc oxide 20.6 % topical ointment 1 applic TOPICAL 0600,2200 SKIN 08/03/22 [History Last Taken 08/03/22] mineral oil-isopropyl myristat lotion 1 applic topical BID DRY SKIN 08/03/22 [History Last Taken 08/03/22] oxycodone 10 mg tablet 10 mg PO Q6H PRN Severe Pain (Scale Score 7-10) 08/03/22 [History Last Taken 08/03/22] pantoprazole 20 mg tablet,delayed release 20 mg PO BID GERD 08/03/22 [History Last Taken 08/02/22] polysaccharide iron complex 150 mg iron capsule (Ferrex) 150 mg PO DAILY SUPPLEMENT 08/03/22 [History Last Taken 08/02/22] sennosides 8.6 mg-docusate sodium 50 mg tablet 1 tablet PO BID CONSTIPATION 08/03/22 [History Last Taken 08/02/22] Allergy/AdvReac Type Severity Reaction Status Date / Time amoxicillin [From Augmentin] Allergy PT UNSURE Verified 08/03/22 13:19 OF REACTION clavulanic acid Allergy PT UNSURE Verified 08/03/22 13:19 [From Augmentin] OF REACTION Iodinated Contrast Media Allergy Anaphylaxis Verified 08/03/22 13:19 [DYEE] levofloxacin [From Levaquin] Allergy Upset Verified 08/03/22 13:19 Stomach loratadine [From Claritin] Allergy PT UNSURE Verified 08/03/22 13:19 OF REACTION hydrocodone bitartrate AdvReac Nausea/Vom/ Verified 08/03/22 13:19 [From Vicodin] Diarrhea iodine AdvReac Nausea/Vom/ Verified 08/03/22 13:19 Diarrhea Family History Mother Arthritis Surgical History History of appendectomy History of cataract extraction History of cholecystectomy History of hernia repair History of open heart surgery History of tonsillectomy Social History Smoking Status: Never smoker Lab / Micro Data Result Diagrams: 08/05/22 05:55 08/05/22 05:55
[2022-08-04] MEDS: oxyCODONE 5 MG Tablet PO ×2 (11:55→17:47)
[2022-08-04 12:27] LABS: Protein, Urine (Random) 71.8 mg/dL (<11.9); Protein:Creat Ratio 671 mg/g CRE (0-200)
--- NOTE | 2022-08-04 12:40 | CASEMGMT ---
Discharge Application Coordinator This business writer sent updates on patient to [facility] via Care Harinder Enrique DC Serging Machine Operator [employer]
--- NOTE | 2022-08-04 12:43 | CASEMGMT ---
Discharge Refrigeration Brazer/Solderer Patient is a bed hold at [facility]. Patient can return to [facility] when medically ready and [facility] can still her once she returns if needed. Iva SALDAÑA Mold Construction Supervisor
[2022-08-04] MEDS: Aspirin E.C. 81 MG Tablet PO (13:00)
[2022-08-04] MEDS: Cilostazol 50 MG Tablet PO ×2 (13:00→22:20)
[2022-08-04] MEDS: Senna/Docusate Sodium 1 Tablet 2 TABLET PO ×2 (13:00→22:20)
[2022-08-04] MEDS: Anastrozole 1 MG TABLET PO (13:00)
[2022-08-04] MEDS: Lactulose 20 GM/30 ML UDC PO (13:00)
[2022-08-04 13:01] VITALS: PULSE 65
[2022-08-04] MEDS: Pantoprazole Sodium 40 MG Tablet PO (13:01)
[2022-08-04] MEDS: Isosorbide Mononitrate 30 MG Tablet PO (13:01)
[2022-08-04] MEDS: Metoprolol(XL)Succ 25 MG Tablet PO (13:01)
[2022-08-04 16:02] VITALS: BP 148/58; PULSE 77; RESP 20; TEMP 36.9; O2SAT 95
[2022-08-04] MEDS: Ensure Plus High Protein 120 ML LIQUID PO (16:07)
[2022-08-04] MEDS: Tamsulosin HCl 0.4 MG Capsule PO (16:08)
[2022-08-04 17:19] LABS: International Normalized Ratio 1.2; Prothrombin Time (Protime)PT. 15.2 SECONDS (11.7-14.9)
[2022-08-04 17:20] LABS: Partial Thromboplast Time 37.3 Seconds (24.1-36.2)
[2022-08-04] MEDS: Dextrose 5%/0.9% NaCl 1,000 ML 100 ML IV (18:07)
[2022-08-04] MEDS: HEPARIN/D5w 25,000 UNITS 25,000 UNITS/250 ML IV.SOLN. 10 UNITS CONT INF (18:08)
--- NOTE | 2022-08-04 18:20 | NURSING ---
Verified compatibility of heparin with 5% dextrose in NS with Madi in pharmacy. States ok to run together.
[2022-08-04 22:18] VITALS: BP 128/37; PULSE 67; RESP 18; TEMP 37.1; O2SAT 95
[2022-08-05] VITALS (11 sets, daily range): BP systolic 126–167; BP diastolic 36–98; PULSE 60–70; RESP 18–20; TEMP 37–37.4; O2SAT 91–96
[2022-08-05 00:36] LABS: Partial Thromboplast Time 105.6 Seconds (24.1-36.2)
[2022-08-05] MEDS: Dextrose 5%/0.9% NaCl 1,000 ML 100 ML IV (02:27)
[2022-08-05] MEDS: oxyCODONE 5 MG Tablet PO ×3 (02:27→17:14)
[2022-08-05 06:06] LABS: Absolute Lymphocyte Count 0.82 X10^3/uL (0.83-4.51); Basophil# 0.04 X10^3/uL; Basophil% 0.4 % (0-1); Eosinophil# 0.25 X10^3/uL; Eosinophils% 2.8 % (0-5); Hematocrit 26.1 % (37-47); Hemoglobin 7.9 g/dL (12.0-15.0); Lymphocyte # 0.82 X10^3/ul (0.83-4.51); Mean Corp Hgb Conc 30.3 g/dL (32-36); Mean Corpuscular Hgb 28.3 pg (27.0-32.0); Mean Corpuscular Volume 93.5 fL (81-99); Mean Platelet Vol. 10.5 fl (6.2-12.0); Monocyte# 0.97 X10^3/uL; Monocyte% 10.7 % (0-10); NRBC Flagged by Analyzer 0 % (0-5); Neutrophil # 6.95 X10^3/uL (2.7-7.7); Neutrophil % 76.4 % (47-70); Platelet Count 175 K/mm3 (150-450); RBC Distribution Width CV 14.8 % (11.6-14.6); Red Blood Count 2.79 M/mm3 (4.2-5.4); White Blood Count 9.1 K/mm3 (4.4-11.0)
[2022-08-05] MEDS: Menthol/Lanolin/Calamine/Znox 113 GM Tube 1 APPLIC TOPICAL ×2 (06:24→23:19)
[2022-08-05 06:42] LABS: CPK Total, Creatine Kinase 683 U/L (26-192)
[2022-08-05 06:54] LABS: ALB/GLOB Ratio 0.5 RATIO (0.9-2.4); AST(SGOT) 84 U/L (15-37); Alanine Aminotransfer ALT/SGPT 82 U/L (13-56); Albumin, Serum 1.9 g/dL (3.2-5.0); Alkaline Phosphatase 214 U/L (45-117); Anion Gap 5 (5-15); BUN 59 mg/dL (7-18); BUN/Creat Ratio 30.3 RATIO (10-20); Calcium,Total 8.2 mg/dL (8.5-10.1); Chloride 105 mmol/L (98-107); Creatinine, Serum 1.95 mg/dL (0.55-1.02); EST Glomerular Filtration Rate 26 mL/min (>60); Est Glom Filt Rate - Afr Amer 32 mL/min (>60); Estimated Creatinine Clearance 20.71 ml/min; Globulin 3.9 g/dL (2.2-4.2); Glucose 309 mg/dL (74-106); Protein, Total 5.8 g/dL (6.4-8.2); Sodium Level 137 mmol/L (136-145)
[2022-08-05] MEDS: Ensure Plus High Protein 120 ML LIQUID PO ×3 (08:38→17:13)
[2022-08-05 08:42] LABS: Partial Thromboplast Time 90.1 Seconds (24.1-36.2)
--- NOTE | 2022-08-05 08:43 | NURSING ---
LAb called this nurse, ptt is 90.1. This nurse happened to be in pts room at the time of phone call. Per heparin policy, stop for 30 min. Stopped at this time.
--- NOTE | 2022-08-05 09:05 | RAD_ITS ---
STUDY: X-RAY CHEST REASON FOR EXAM: Female, 82 years old. Sob TECHNIQUE: Single AP portable view of the chest. COMPARISON: Comparison is made with prior study dated 08/03/2022. FINDINGS: Slight improvement in the left pleural-parenchymal changes. The right lung is clear. Sternal cerclage wires and vascular clips are present from a prior sternotomy and coronary artery bypass graft procedure (CABG). A left-sided dual-chamber pacemaker is seen. Normal mediastinum and renay. Normal visualized pulmonary arteries. There is atherosclerotic calcification of the aortic arch with tortuosity. Normal visualized thoracic spine. There is degenerative osteoarthritis of the bilateral shoulders. There is no demonstrated abnormality of the visualized soft tissue structures of the upper abdomen. RAD/Chest 1 View (Portable) IMPRESSION: Improved aeration of the left lung base with mild residual pleural parenchymal changes at the left lung base. Electronically Signed: Wiliam Hernandez MD at 15:17 EST ,
[2022-08-05] MEDS: Senna/Docusate Sodium 1 Tablet 2 TABLET PO (09:40)
[2022-08-05] MEDS: Aspirin E.C. 81 MG Tablet PO (09:40)
[2022-08-05] MEDS: Isosorbide Mononitrate 30 MG Tablet PO (09:40)
[2022-08-05] MEDS: Metoprolol(XL)Succ 25 MG Tablet PO (09:40)
[2022-08-05] MEDS: Lactulose 20 GM/30 ML UDC PO (09:41)
[2022-08-05] MEDS: Anastrozole 1 MG TABLET PO (09:41)
[2022-08-05] MEDS: Cilostazol 50 MG Tablet PO (09:47)
[2022-08-05] MEDS: Pantoprazole Sodium 40 MG Tablet PO ×2 (09:48→20:29)
--- NOTE | 2022-08-05 10:00 | CASEMGMT ---
Social Work SW met with pt and introduced self and role of SW. Pt aware that she is in [facility]. Unable to answer other questions. 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 and plans to return there upon discharge. Plan: [facility], when medically ready EFRAIN Katz
--- NOTE | 2022-08-05 10:35 | PCM.PN.REN ---
Documented by User: JAYRO Barragan 08/05/22 10:43 Subjective Subjective Following for CARLOS ALBERTO superimposed on CKD Patient is alert, resting quietly. Denies any complaints. No overnight events Objective Data Objective Data Vital Signs: Vital Signs Temp Pulse Resp BP Pulse Ox O2 Del Method O2 Flow Rate 99.1 F 70 20 H 135/98 H 91 Nasal Cannula 3 08/05/22 08:25 08/05/22 09:40 08/05/22 08:25 08/05/22 08:25 08/05/22 08:25 08/05/22 09:26 08/05/22 09:26 Oxygen Flow Rate (L/min) 3 Oxygen Delivery Method Nasal Cannula Weight: 88.8 kg Body Mass Index (BMI) 32.8 Intake & Output: Intake and Output for Last 24 Hours 08/03/22 08/04/22 08/05/22 23:59 23:59 23:59 Intake Total 1999 / 1999 2510.00 / 2510.00 1631.19 / 1631.19 Output Total 400 / 400 1200 / 1200 250 / 250 Balance 1600 / 1600 1310.00 / 1310.00 1381.19 / 1381.19 Medical Nutrition Assessment Dietitian: Malnutrition Criteria Met Start: 08/04/22 14:22 Freq: Status: Active Protocol: Document 08/04/22 14:22 RMA (Rec: 08/04/22 14:22 RMA [id number]) Nutrition Malnutrition Evidence of Malnutrition Exists Yes Malnutrition (severe): Chronic Evidenced By Suboptimal Energy Intake ( Severe),Weight Loss (Severe) Clinical Problem Chronic Disease or Condition Related Malnutrition Etiology Severe protein-calorie malnutrition in the context of chronic disease and debility related to inadequate oral intake and need for mechanically altered food Signs/Symptoms as evidenced by ~9% wt loss in less than 1 month and PO meeting less than 50% estimated nutrition needs Status Active Problem Recommendation Dietitian Recommendations/Changes Will adjust diet to Regular/no added salt given signs/ symptoms of malnutrition. Texture/consistency as per VICE PRESIDENT COMPLIANCE , currently oppv-[id number] foods and thin liquids. Will offer 120 ml ensure plus high protein TID w/ medpass as tolerated. Lab / Micro Data Result Diagrams: 08/05/22 05:55 08/05/22 05:55 Labs: Laboratory Results - last 24 hr 08/03/22 20:20: U Random Total Protein 71.8 H, Urine Creatinine 107.00, Protein/Creatinin Ratio 671 H 08/04/22 16:35: PT 15.2 H, INR 1.2, APTT 37.3 H 08/04/22 23:55: APTT 105.6 H* 08/05/22 05:55: WBC 9.1, RBC 2.79 L, Hgb 7.9 L, Hct 26.1 L, MCV 93.5, MCH 28.3, MCHC 30.3 L, RDW Std Deviation 50.0 H, RDW Coeff of Gunnar 14.8 H, Plt Count 175, MPV 10.5, Immature Gran % (Auto) 0.700, Neut % (Auto) 76.4 H, Lymph % (Auto) 9.0 L, Nicholas % (Auto) 10.7 H, Eos % (Auto) 2.8, Baso % (Auto) 0.4, Absolute Neuts (auto) 7.0, Absolute Lymphs (auto) 0.82 L, Nucleated RBC % 0 08/05/22 05:55: Sodium 137, Potassium 4.0, Chloride 105, Carbon Dioxide 27.0, Anion Gap 5, BUN 59 H, Creatinine 1.95 H, Estim Creat Clear Calc 20.71, Est GFR (MDRD) Af Amer 32 L, Est GFR (MDRD) Non-Af 26 L, BUN/Creatinine Ratio 30.3 H, Glucose 309 H, Calcium 8.2 L, Total Bilirubin 1.90 H, AST 84 H, ALT 82 H, Alkaline Phosphatase 214 H, Total Protein 5.8 L, Albumin 1.9 L, Globulin 3.9, Albumin/Globulin Ratio 0.5 L 08/05/22 05:55: Total Creatine Kinase 683 H 08/05/22 08:03: APTT 90.1 H* Micro: Microbiology 08/03/22 20:20 Urine Catheter - Catheter Urine Culture - Final Presumptive Lactobacillus sp. 08/03/22 14:39 Nasal Secretion SARS-CoV-2 & FLU Antigen (Rapid) - Final Radiography Diagnostic Testing: Radiology Impression Venous Doppler Study 08/03/22 18:48 Interpretation Summary Acute deep venous thrombosis right popliteal and tibioperoneal trunk. Superficial thrombophlebitis right great saphenous vein of the thigh with thrombus noted to extend literally to 0.2 cm from the common femoral vein junction. No evidence for acute deep venous thrombosis left lower extremity Superficial thrombophlebitis left proximal thigh great saphenous vein extending to 1.8 cm from the common femoral vein junction Harvested left below-knee great saphenous vein Ordering Physician: Armando Anthony Referring Physician: Jordan Shelton Performed By: Afshan Bourne RVT Abdomen Ultrasound 08/04/22 05:55 IMPRESSION: Status post cholecystectomy by patient history. There is a 2.2 cm x 1.6 cm x 1.4 cm cystic structure in the gallbladder fossa. Electronically Signed: Wiliam Hernandez MD at 15:15 EST , Rhythm Strip Rhythm Strip: A-fib Rate: 85 Ectopy: None Physical Exam Narrative Alert to name only, confused to place and time. Sitting in chair. No apparent distress S1, S2 RRR Lung sounds clear anteriorly, diminished breath sounds posteriorly. No wheezing Abdomen soft, nontender, positive bowel sounds x4 quadrants No edema noted bilateral lower legs, feet or thighs Indwelling Hernandez with clear urine in bag Assessment & Plan Assessment/Plan (1) Acute kidney failure: (2) AMS (altered mental status): (3) CKD (chronic kidney disease): (4) Abnormal LFTs: PLAN: Plan -Nonoliguric, mildly hypovolemic CARLOS ALBERTO on CKD stage III: CARLOS ALBERTO likely prerenal from poor oral intake with concurrent losartan and diuretic use. With IV fluids renal function has improved. Urine output 1.2 L yesterday. Creatinine peaked at 3.73 mg/dL on admission and today creatinine 1.95 mg/dL. Furosemide and losartan are on hold and recommend to continue holding. At this time there is no acute indication for WATER PUMP SERVICER as renal function is improving. No hyperkalemia, no metabolic acidosis and volume status acceptable with no overt fluid overload. Noncontrast CT did not show any hydronephrosis or obstructing stone, bladder unremarkable, liver unremarkable. -Patient had some shortness of breath this morning therefore had chest x-ray. Report is pending. Okay to stop IV fluids as renal function is improving if okay with primary team. Asked nursing to encourage patient to increase solute and fluid intake - CPK elevated at 683. -CKD stage III: Reviewed past creatinine trends, patient has evidence of elevated serum creatinine dating back to at least 2013, baseline creatinine ranging now around 1.4-1.7 as of June 2022. Patient may have diabetic kidney disease. Urine protein creatinine ratio 671 mg/g. Albumin is 2.0. UA showed 30 protein, positive leukocyte esterase, no RBC, 50 occult blood. Urine culture sent and is pending. -Blood pressures acceptable on Toprol and Imdur. -Work-up is in progress for elevated LFTs. - on heparin gtt for DVT - discussed nephrology plan with Dr. Anthony Documented by User: Dr. Jonathon Garcia MD 08/05/22 14:26 Objective Data Lab / Micro Data Result Diagrams: 08/05/22 05:55 08/05/22 05:55 Assessment & Plan Assessment/Plan (1) Acute kidney failure: (2) AMS (altered mental status): (3) CKD (chronic kidney disease): (4) Abnormal LFTs: PLAN: Plan -Nonoliguric, mildly hypovolemic CARLOS ALBERTO on CKD stage III: CARLOS ALBERTO likely prerenal from poor oral intake with concurrent losartan and diuretic use. With IV fluids renal function has improved. Urine output 1.2 L yesterday. Creatinine peaked at 3.73 mg/dL on admission and today creatinine 1.95 mg/dL. Furosemide and losartan are on hold and recommend to continue holding. At this time there is no acute indication for WATER PUMP SERVICER as renal function is improving. No hyperkalemia, no metabolic acidosis and volume status acceptable with no overt fluid overload. Noncontrast CT did not show any hydronephrosis or obstructing stone, bladder unremarkable, liver unremarkable. -Patient had some shortness of breath this morning therefore had chest x-ray. Report is pending. Okay to stop IV fluids as renal function is improving if okay with primary team. Asked nursing to encourage patient to increase solute and fluid intake - CPK elevated at 683. -CKD stage III: Reviewed past creatinine trends, patient has evidence of elevated serum creatinine dating back to at least 2013, baseline creatinine ranging now around 1.4-1.7 as of June 2022. Patient may have diabetic kidney disease. Urine protein creatinine ratio 671 mg/g. Albumin is 2.0. UA showed 30 protein, positive leukocyte esterase, no RBC, 50 occult blood. Urine culture sent and is pending. -Blood pressures acceptable on Toprol and Imdur. -Work-up is in progress for elevated LFTs. - on heparin gtt for DVT - discussed nephrology plan with Dr. Anthony Nephrology attending addendum: The patient was seen and examined personally. Nurse practitioners note reflects my medical decision making with my attestation below. Following for CARLOS ALBERTO on CKD. The patient denies chest pain, shortness of breath, or nausea. Vital signs and examination as above. There is no apparent distress, heart tone is normal, lungs are clear bilaterally, and there is no edema of the lower extremities. Impression/Plan: The patient is an 82-year-old woman with past history of type 2 diabetes mellitus, dementia, hypertension, CAD, breast cancer, and chronic kidney disease stage IIIb. The patient was admitted to the hospital on 08/03/2022 with altered mental status. The patient recently had a fall on 07/29/2022 resulting in pelvic fracture. Nephrology is following for CARLOS ALBERTO on CKD. Acute kidney injury on chronic kidney disease stage IIIb. The patient has underlying CKD, likely due to diabetic kidney disease. Baseline serum creatinine is around 1.4 to 1.7 mg/dL. CARLOS ALBERTO is due to prerenal azotemia from volume depletion with decreased oral intake. Renal function is improving with volume expansion. Serum creatinine peaked at 3.73 mg/dL on 08/03/2022. Serum creatinine is down to 1.95 mg/dL today. Continue to hold losartan. Continue to encourage oral solute/fluid intake. We will continue to monitor renal function, volume status, electrolytes, and acid-base status. Current medications are reviewed and are all appropriately dosed for her renal function. Hypertension. BP is reasonably controlled off of losartan. Continue metroprolol succinate at 25 mg once a day. We can add back losartan once renal function returns to baseline. Nephrology plan will be discussed with Dr. Anthony.
[2022-08-05 11:40] LABS: Bedside Glucose 335 mg/dL (74-106)
--- NOTE | 2022-08-05 13:18 | PN.HOSP_ITS ---
Subjective Subjective Follow-up for physical debility, had pelvic fracture on 07/29 found in ED, bilateral DVT, CARLOS ALBERTO and acute liver injury Objective Data Objective Data Vital Signs: Vital Signs Temp Pulse Resp BP Pulse Ox O2 Del Method O2 Flow Rate 98.8 F 60 20 H 126/53 H 93 Room Air 3 08/05/22 11:15 08/05/22 11:15 08/05/22 11:15 08/05/22 11:15 08/05/22 11:15 08/05/22 11:15 08/05/22 11:15 Oxygen Flow Rate (L/min) 3 Oxygen Delivery Method Room Air Weight: 195 lb 12.328 oz Body Mass Index (BMI) 32.8 Intake & Output: Intake and Output for Last 24 Hours 08/03/22 08/04/22 08/05/22 23:59 23:59 23:59 Intake Total 1999 / 1999 2510.00 / 2510.00 1631.19 / 1631.19 Output Total 400 / 400 1200 / 1200 250 / 250 Balance 1600 / 1600 1310.00 / 1310.00 1381.19 / 1381.19 Medical Nutrition Assessment Dietitian: Malnutrition Criteria Met Start: 08/04/22 14:22 Freq: Status: Active Protocol: Document 08/04/22 14:22 RMA (Rec: 08/04/22 14:22 RMA [id number]) Nutrition Malnutrition Evidence of Malnutrition Exists Yes Malnutrition (severe): Chronic Evidenced By Suboptimal Energy Intake ( Severe),Weight Loss (Severe) Clinical Problem Chronic Disease or Condition Related Malnutrition Etiology Severe protein-calorie malnutrition in the context of chronic disease and debility related to inadequate oral intake and need for mechanically altered food Signs/Symptoms as evidenced by ~9% wt loss in less than 1 month and PO meeting less than 50% estimated nutrition needs Status Active Problem Recommendation Dietitian Recommendations/Changes Will adjust diet to Regular/no added salt given signs/ symptoms of malnutrition. Texture/consistency as per LIBRARY MEDIA TECHNICIAN , currently isef-ru-gylk foods and thin liquids. Will offer 120 ml ensure plus high protein TID w/ medpass as tolerated. Lab / Micro Data Result Diagrams: 08/05/22 05:55 08/05/22 05:55 Labs: Laboratory Results - last 24 hr 08/04/22 16:35: PT 15.2 H, INR 1.2, APTT 37.3 H 08/04/22 23:55: APTT 105.6 H* 08/05/22 05:55: WBC 9.1, RBC 2.79 L, Hgb 7.9 L, Hct 26.1 L, MCV 93.5, MCH 28.3, MCHC 30.3 L, RDW Std Deviation 50.0 H, RDW Coeff of Gunnar 14.8 H, Plt Count 175, MPV 10.5, Immature Gran % (Auto) 0.700, Neut % (Auto) 76.4 H, Lymph % (Auto) 9.0 L, Glades % (Auto) 10.7 H, Eos % (Auto) 2.8, Baso % (Auto) 0.4, Absolute Neuts (auto) 7.0, Absolute Lymphs (auto) 0.82 L, Nucleated RBC % 0 08/05/22 05:55: Sodium 137, Potassium 4.0, Chloride 105, Carbon Dioxide 27.0, Anion Gap 5, BUN 59 H, Creatinine 1.95 H, Estim Creat Clear Calc 20.71, Est GFR (MDRD) Af Amer 32 L, Est GFR (MDRD) Non-Af 26 L, BUN/Creatinine Ratio 30.3 H, Glucose 309 H, Calcium 8.2 L, Total Bilirubin 1.90 H, AST 84 H, ALT 82 H, Alkaline Phosphatase 214 H, Total Protein 5.8 L, Albumin 1.9 L, Globulin 3.9, Albumin/Globulin Ratio 0.5 L 08/05/22 05:55: Total Creatine Kinase 683 H 08/05/22 08:03: APTT 90.1 H* 08/05/22 11:14: POC Glucose 335 H Micro: Microbiology 08/03/22 20:20 Urine Catheter - Catheter Urine Culture - Final Presumptive Lactobacillus sp. 08/03/22 14:39 Nasal Secretion SARS-CoV-2 & FLU Antigen (Rapid) - Final Radiography Diagnostic Testing: Radiology Impression Venous Doppler Study 08/03/22 18:48 Interpretation Summary Acute deep venous thrombosis right popliteal and tibioperoneal trunk. Superficial thrombophlebitis right great saphenous vein of the thigh with thrombus noted to extend literally to 0.2 cm from the common femoral vein junction. No evidence for acute deep venous thrombosis left lower extremity Superficial thrombophlebitis left proximal thigh great saphenous vein extending to 1.8 cm from the common femoral vein junction Harvested left below-knee great saphenous vein Abdomen Ultrasound 08/04/22 05:55 IMPRESSION: Status post cholecystectomy by patient history. There is a 2.2 cm x 1.6 cm x 1.4 cm cystic structure in the gallbladder fossa. Electronically Signed: Wiliam Hernandez MD at 15:15 EST , Rhythm Strip Rhythm Strip: A-fib Rate: 85 Ectopy: None Physical Exam Narrative Physical exam General: Awake, sometimes comprehensible. Intermittent confusion and disorientation. Obesity grade 3 BMI 33.8 kg/m? HEENT: Atraumatic, PERRLA, EOMI, Normocephalic. Mild icterus Oral: Oral mucosa moist. Deep oropharyngeal structures could not be visualized. Neck: Supple, No JVD, Negative Carotid Bruits Lungs: Air entry diminished in bilateral lung bases. No crepitation/rhonchi Cardiovascular: Paced rhythm, irregular, PVC, Normal S1, Normal S2, No murmurs Abdomen: Bowel Sounds sluggish, soft and nontender. Abdomen distended. : Hernandez catheter clear urine. Patient denies burning micturition. No renal angle tenderness. No suprapubic tenderness. Extremities: Bilateral chronic leg nonpitting Edema, Capillary Refill Less than 3 Seconds Skin: No rashes, No breakdown Musculoskeletal: ROM severely restricted. Passive movement is stiff. Painful on flexion extension. Neurological: Muscle strength 4/5 seems mainly due to physical deconditioning and edema. Psych/Mental Status: Flat affect. Assessment & Plan Assessment/Plan (1) AMS (altered mental status): (2) Acute kidney injury: (3) Acute liver disease: PLAN: Plan The patient is a 82-year-old female with multiple comorbidities sent from [facility] for altered mental status on top of dementia and a stroke and abnormal labs 1. CARLOS ALBERTO seems most likely prerenal but cannot rule out obstructive uropathy: Patient is being admitted on [facility] floor. Hernandez catheter ordered as abdomen is distended and for accurate intake and output measurement. Patient baseline creatinine about 1.5-1.7 noticed in October June 2022. Creatinine upon high 3.73 on 2/13, mild decrease 3.34 and 23.17. BUN elevated 79. CT abdomen and pelvis without contrast ordered as patient abdomen is distended and rule out obstructive uropathy. Nephrology consult. Patient had 1 L of normal saline bolus in ED and 1 more liter bolus ordered. Continue 100 mL/h after that. Hold nephrotoxic medications. 08/04: There is improvement in creatinine. Electrolytes in normal range. Discu ssed with the neuroscientist. Agree with continuation of normal saline. CT abdomen does not show evidence of hydronephrosis or kidney stone. 08/05: Patient BUN/creatinine 59/1.95, improving trend. Electrolytes in normal range. Patient looks more short of breath therefore x-ray was done and does not show acute changes compared to 08/03/2022. Continue IV fluid for nutritional support. CKs 683. 2. Acute liver injury, exact etiology unclear: Patient bilirubin found 2.3 on 08/02, increased doubled 4.1 on 08/03. No differential available. Patient also has increasing trend of transaminases and alkaline phosphatase. CT abdomen ordered. Liver ultrasound ordered for tomorrow AM. 08/04: Improvement in patient's total bilirubin. TV yesterday was 4.1, TB 2.9 therefore mainly direct. Today's 3.0. Improvement in transaminases and alkaline phosphatase. 08/05: AALA improving. Improvement in ALT AST and total bilirubin. Limited ultrasound shows cystic structure in GB fossa 2.2 x 1.6 x 1.4 cm, status postcholecystectomy. CBD 3.2 mm. 3. Altered mental status/acute encephalopathy possible metabolic on baseline dementia, previous stroke: Continue baby aspirin. PT OT speech therapy ev aluation. Patient was last admitted in March 2022 for debility, generalized weakness and earlier in 2021 she had a stroke. Rapid SARS-CoV-2 and flu antigen negative. Hold sedative/SSRI medications. Chest x-ray image reviewed shows left lower lobe and CP angle obliteration similar to previous x-ray 11/26/2021. Has AICD. 08/04: Improvement in mental status but patient seems chronically physically and mentally debilitated possible dementia and previous stroke. PT and OT ordered. 4. Chronic normocytic normochromic anemia, anemia of chronic disease: H&H 9.7/31.3. Mild leukocytosis. Platelet count 176,000. Neutrophils 78.3% 08/05: Hemoglobin dropped to 7.9/26.1. Platelet count 175,000. Patient on IV heparin drip. Protonix 40 mg IV twice daily ordered. Discontinue baby aspirin and cilostazol. Patient also has chronic constipation 5. 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 Hold nephrotoxic medications losartan. 6. History of DVT: Xarelto was discontinued for patient with history of GI bleed. In March 2022, venous duplex was negative. Venous duplex is ordered. 08/04: Patient has acute DVT of right popliteal and tibioperoneal trunk. Superficial thrombosis/thrombophlebitis of right GSV with thrombus extending to CFV junction. Superficial thrombophlebitis of left proximal GSV extending to 1.8 cm from CFV. Patient has been chronically bedridden. Patient dropped hemoglobin to 8.1 from 9.7 on heparin subcu therefore not good for Lovenox or NOACs. Heparin drip started without bolus for ED reversibility. 7. Type 2 diabetes mellitus: Medications on hold.?? Accu-Chek before meals and at bedtime coverage Humalog sliding scale. 08/04 glucose in 90s. 7.? Hyperlipidemia: Hold statin because of acute liver injury ? 8.? History of breast cancer: On Arimidex. Total time of the visit including total time spent in counseling or coordination of care, (more than 50% of the total time, spent in obtaining medical information from nurses and other ancillary care providers,explaining to the patient about labs, imaging, diagnosis and management of active complex medical conditions), discussion with human capital consultant, review of labs and imaging is 40 minutes. Laboratory Results - last 24 hr 08/04/22 16:35: PT 15.2 H, INR 1.2, APTT 37.3 H 08/04/22 23:55: APTT 105.6 H* 08/05/22 05:55: WBC 9.1, RBC 2.79 L, Hgb 7.9 L, Hct 26.1 L, MCV 93.5, MCH 28.3, MCHC 30.3 L, RDW Std Deviation 50.0 H, RDW Coeff of Gunnar 14.8 H, Plt Count 175, MPV 10.5, Immature Gran % (Auto) 0.700, Neut % (Auto) 76.4 H, Lymph % (Auto) 9.0 L, Glades % (Auto) 10.7 H, Eos % (Auto) 2.8, Baso % (Auto) 0.4, Absolute Neuts (auto) 7.0, Absolute Lymphs (auto) 0.82 L, Nucleated RBC % 0 08/05/22 05:55: Sodium 137, Potassium 4.0, Chloride 105, Carbon Dioxide 27.0, A nion Gap 5, BUN 59 H, Creatinine 1.95 H, Estim Creat Clear Calc 20.71, Est GFR (MDRD) Af Amer 32 L, Est GFR (MDRD) Non-Af 26 L, BUN/Creatinine Ratio 30.3 H, Glucose 309 H, Calcium 8.2 L, Total Bilirubin 1.90 H, AST 84 H, ALT 82 H, Alkali ne Phosphatase 214 H, Total Protein 5.8 L, Albumin 1.9 L, Globulin 3.9, Albumin/Globulin Ratio 0.5 L 08/05/22 05:55: Total Creatine Kinase 683 H 08/05/22 08:03: APTT 90.1 H* 08/05/22 11:14: POC Glucose 335 H Living will/advanced directive/end of life care: Patient facesheet from the group home and states DNR CC. Patient is not awake to confirm that. While it seems patient has living will as per documentation from facesheet. We will maintain DNRCC. Total time spent in [id number] encounter in discussion of advanced directive 16 minutes. Charges/Coding Visit Charges Inpatient E&M: 33087 Subs Hosp L3
[2022-08-05] MEDS: Insulin Lispro 100 UNIT/ML INSULN.PEN SC ×3 (13:35→20:30)
[2022-08-05] MEDS: Bisacodyl 10 MG Suppository RC (13:38)
[2022-08-05] MEDS: Dextrose 5%/0.9% NaCl 1,000 ML 60 ML IV (13:40)
[2022-08-05] MEDS: Insulin Glargine-YFGN 100 UNIT/ML Pen 10 UNIT SC (15:09)
[2022-08-05 15:41] LABS: Bedside Glucose 306 mg/dL (74-106)
[2022-08-05 15:53] LABS: Partial Thromboplast Time 64.2 Seconds (24.1-36.2)
[2022-08-05 16:26] LABS: Bedside Glucose 275 mg/dL (74-106)
[2022-08-05] MEDS: Tamsulosin HCl 0.4 MG Capsule PO (17:15)
--- NOTE | 2022-08-05 18:36 | NURSING ---
Dr Anthony was notified pt had a large emesis, occult stool was positive, requested Zofran for nausea.
[2022-08-05] MEDS: Ondansetron 4 MG/2 ML Vial IV (19:10)
[2022-08-05] MEDS: 0.9% Saline Lock 10 ML Syringe IV (19:10)
[2022-08-05 19:36] LABS: Hematocrit 27.2 % (37-47); Hemoglobin 8.4 g/dL (12.0-15.0)
[2022-08-05] MEDS: proMETHazine 25 MG Tablet 12.5 MG PO (20:43)
[2022-08-05 21:40] LABS: Partial Thromboplast Time 116.5 Seconds (24.1-36.2)
[2022-08-05 23:50] LABS: Bedside Glucose 258 mg/dL (74-106)
[2022-08-06] VITALS (8 sets, daily range): BP systolic 120–141; BP diastolic 37–62; PULSE 60–64; RESP 18–20; TEMP 36.2–37.5; O2SAT 93–96
[2022-08-06] MEDS: Dextrose 5%/0.9% NaCl 1,000 ML 60 ML IV (03:36)
[2022-08-06] MEDS: Menthol/Lanolin/Calamine/Znox 113 GM Tube 1 APPLIC TOPICAL ×2 (03:37→22:01)
[2022-08-06] MEDS: Insulin Lispro 100 UNIT/ML INSULN.PEN SC ×3 (05:58→16:41)
[2022-08-06 06:23] LABS: Absolute Lymphocyte Count 1.17 X10^3/uL (0.83-4.51); Absolute Neutrophil Count 6.2 X10^3/uL (2.0-7.7); Basophil# 0.04 X10^3/uL; Basophil% 0.5 % (0-1); Eosinophil# 0.36 X10^3/uL; Eosinophils% 4.1 % (0-5); Hematocrit 26.6 % (37-47); Hemoglobin 8.4 g/dL (12.0-15.0); Lymphocyte # 1.17 X10^3/ul (0.83-4.51); Lymphocyte % 13.2 % (19-41); Mean Corp Hgb Conc 31.6 g/dL (32-36); Mean Corpuscular Hgb 29.2 pg (27.0-32.0); Mean Corpuscular Volume 92.4 fL (81-99); Mean Platelet Vol. 10.8 fl (6.2-12.0); Monocyte# 1.06 X10^3/uL; Monocyte% 11.9 % (0-10); NRBC Flagged by Analyzer 0 % (0-5); Neutrophil # 6.19 X10^3/uL (2.7-7.7); Neutrophil % 69.6 % (47-70); Platelet Count 188 K/mm3 (150-450); RBC Distribution Width CV 14.7 % (11.6-14.6); RBC Distribution Width SD 49.4 fl (35.1-43.9); Red Blood Count 2.88 M/mm3 (4.2-5.4); White Blood Count 8.9 K/mm3 (4.4-11.0)
[2022-08-06 06:26] LABS: Bedside Glucose 230 mg/dL (74-106)
[2022-08-06 06:41] LABS: Partial Thromboplast Time 50.8 Seconds (24.1-36.2)
[2022-08-06 06:47] LABS: ALB/GLOB Ratio 0.5 RATIO (0.9-2.4); AST(SGOT) 54 U/L (15-37); Alanine Aminotransfer ALT/SGPT 61 U/L (13-56); Alkaline Phosphatase 197 U/L (45-117); Anion Gap 1 (5-15); BUN 55 mg/dL (7-18); Calcium,Total 8.5 mg/dL (8.5-10.1); Chloride 109 mmol/L (98-107); Creatinine, Serum 2.04 mg/dL (0.55-1.02); EST Glomerular Filtration Rate 25 mL/min (>60); Est Glom Filt Rate - Afr Amer 30 mL/min (>60); Estimated Creatinine Clearance 19.79 ml/min; Globulin 3.8 g/dL (2.2-4.2); Glucose 240 mg/dL (74-106); Protein, Total 5.8 g/dL (6.4-8.2); Sodium Level 141 mmol/L (136-145)
[2022-08-06] MEDS: Metoprolol(XL)Succ 25 MG Tablet PO (09:44)
[2022-08-06] MEDS: Senna/Docusate Sodium 1 Tablet 2 TABLET PO (09:45)
[2022-08-06] MEDS: Isosorbide Mononitrate 30 MG Tablet PO (09:45)
[2022-08-06] MEDS: Pantoprazole Sodium 40 MG Tablet PO ×2 (09:45→20:03)
[2022-08-06] MEDS: Anastrozole 1 MG TABLET PO (09:46)
[2022-08-06] MEDS: Ensure Plus High Protein 120 ML LIQUID PO ×2 (09:49→11:47)
[2022-08-06] MEDS: Insulin Glargine-YFGN 100 UNIT/ML Pen 10 UNIT SC (11:42)
[2022-08-06] MEDS: Bisacodyl 5 MG Tablet PO (11:47)
[2022-08-06 12:11] LABS: Bedside Glucose 210 mg/dL (74-106)
[2022-08-06] MEDS: HEPARIN/D5w 25,000 UNITS 25,000 UNITS/250 ML IV.SOLN. 5 UNITS CONT INF (14:52)
--- NOTE | 2022-08-06 15:31 | PCM.PN.REN ---
Subjective Subjective No new events Objective Data Objective Data Vital Signs: Vital Signs Temp Pulse Resp BP Pulse Ox O2 Del Method O2 Flow Rate 97.9 F 60 18 120/37 L 96 Nasal Cannula 3 08/06/22 14:47 08/06/22 14:47 08/06/22 14:47 08/06/22 14:47 08/06/22 14:47 08/06/22 14:55 08/06/22 14:55 Oxygen Flow Rate (L/min) 3 Oxygen Delivery Method Nasal Cannula Weight: 94.393 kg Body Mass Index (BMI) 32.8 Intake & Output: Intake and Output for Last 24 Hours 08/04/22 08/05/22 08/06/22 23:59 23:59 23:59 Intake Total 2510.00 / 2510.00 1975.39 / 1975.39 892.43 / 892.43 Output Total 1200 / 1200 1100 / 1100 600 / 600 Balance 1310.00 / 1310.00 875.39 / 875.39 292.43 / 292.43 Medical Nutrition Assessment Dietitian: Malnutrition Criteria Met Start: 08/04/22 14:22 Freq: Status: Active Protocol: Document 08/04/22 14:22 RMA (Rec: 08/04/22 14:22 RMA [id number]) Nutrition Malnutrition Evidence of Malnutrition Exists Yes Malnutrition (severe): Chronic Evidenced By Suboptimal Energy Intake ( Severe),Weight Loss (Severe) Clinical Problem Chronic Disease or Condition Related Malnutrition Etiology Severe protein-calorie malnutrition in the context of chronic disease and debility related to inadequate oral intake and need for mechanically altered food Signs/Symptoms as evidenced by ~9% wt loss in less than 1 month and PO meeting less than 50% estimated nutrition needs Status Active Problem Recommendation Dietitian Recommendations/Changes Will adjust diet to Regular/no added salt given signs/ symptoms of malnutrition. Texture/consistency as per BLOOD BANK CREDIT CLERK , currently [id number] foods and thin liquids. Will offer 120 ml ensure plus high protein TID w/ medpass as tolerated. Lab / Micro Data Result Diagrams: 08/06/22 04:59 08/06/22 04:59 Labs: Laboratory Results - last 24 hr 08/05/22 15:09: POC Glucose 306 H 08/05/22 15:30: APTT 64.2 H 08/05/22 16:07: POC Glucose 275 H 08/05/22 18:54: Hgb 8.4 L, Hct 27.2 L 08/05/22 20:27: POC Glucose 258 H 08/05/22 21:07: APTT 116.5 H* 08/06/22 04:59: WBC 8.9, RBC 2.88 L, Hgb 8.4 L, Hct 26.6 L, MCV 92.4, MCH 29.2, MCHC 31.6 L, RDW Std Deviation 49.4 H, RDW Coeff of Gunnar 14.7 H, Plt Count 188, MPV 10.8, Immature Gran % (Auto) 0.700, Neut % (Auto) 69.6, Lymph % (Auto) 13.2 L, [place] % (Auto) 11.9 H, Eos % (Auto) 4.1, Baso % (Auto) 0.5, Absolute Neuts (auto) 6.2, Absolute Lymphs (auto) 1.17, Nucleated RBC % 0 08/06/22 04:59: Sodium 141, Potassium 4.0, Chloride 109 H, Carbon Dioxide 31.0, Anion Gap 1 L, BUN 55 H, Creatinine 2.04 H, Estim Creat Clear Calc 19.79, Est GFR (MDRD) Af Amer 30 L, Est GFR (MDRD) Non-Af 25 L, BUN/Creatinine Ratio 27.0 H, Glucose 240 H, Calcium 8.5, Total Bilirubin 1.50 H, AST 54 H, ALT 61 H, Alkaline Phosphatase 197 H, Total Protein 5.8 L, Albumin 2.0 L, Globulin 3.8, Albumin/Globulin Ratio 0.5 L 08/06/22 04:59: APTT 50.8 H 08/06/22 05:57: POC Glucose 230 H 08/06/22 11:39: POC Glucose 210 H 08/06/22 12:57: APTT 45.0 H Micro: Microbiology 08/05/22 16:05 Stool Stool Occult Blood (GLENN) - Final Occult Blood Positive 08/03/22 20:20 Urine Catheter - Catheter Urine Culture - Final Presumptive Lactobacillus sp. 08/03/22 14:39 Nasal Secretion SARS-CoV-2 & FLU Antigen (Rapid) - Final Rhythm Strip Rhythm Strip: A-fib Rate: 85 Ectopy: None Physical Exam Narrative Alert to name only, confused to place and time. Sitting in chair. No apparent distress S1, S2 RRR Lung sounds clear anteriorly, diminished breath sounds posteriorly. No wheezing Abdomen soft, nontender, positive bowel sounds x4 quadrants No edema noted bilateral lower legs, feet or thighs Indwelling Hernandez with clear urine in bag Assessment & Plan Assessment/Plan (1) Acute kidney failure: (2) AMS (altered mental status): (3) CKD (chronic kidney disease): (4) Abnormal LFTs: PLAN: Plan acute kidney injury superimposed on chronic kidney disease stage III. CARLOS ALBERTO likely prerenal likely from poor oral intake with concurrent losartan and diuretic use. No hyperkalemia, no metabolic acidosis and volume status acceptable with no overt fluid overload. Noncontrast CT did not show any hydronephrosis or obstructing stone, bladder unremarkable, liver unremarkable. Reviewed past creatinine trends, patient has evidence of elevated serum creatinine dating back to at least 2013, baseline creatinine ranging now around 1.4-1.7 as of June 2022. Patient may have diabetic kidney disease. Urine protein creatinine ratio is not impressive. Creatinine today is about the same as yesterday. Volume status looks good. Urine output acceptable. Hold fluids.
--- NOTE | 2022-08-06 15:45 | PN.HOSP_ITS ---
Subjective Subjective Follow-up for CARLOS ALBERTO, acute liver injury and severe anemia. Patient had a small bowel movement yesterday. Objective Data Objective Data Vital Signs: Vital Signs Temp Pulse Resp BP Pulse Ox O2 Del Method O2 Flow Rate 97.9 F 60 18 120/37 L 96 Nasal Cannula 3 08/06/22 14:47 08/06/22 14:47 08/06/22 14:47 08/06/22 14:47 08/06/22 14:47 08/06/22 14:55 08/06/22 14:55 Oxygen Flow Rate (L/min) 3 Oxygen Delivery Method Nasal Cannula Weight: 208 lb 1.6 oz Body Mass Index (BMI) 32.8 Intake & Output: Intake and Output for Last 24 Hours 08/04/22 08/05/22 08/06/22 23:59 23:59 23:59 Intake Total 2510.00 / 2510.00 1975.39 / 1975.39 892.43 / 892.43 Output Total 1200 / 1200 1100 / 1100 600 / 600 Balance 1310.00 / 1310.00 875.39 / 875.39 292.43 / 292.43 Medical Nutrition Assessment Dietitian: Malnutrition Criteria Met Start: 08/04/22 14:22 Freq: Status: Active Protocol: Document 08/04/22 14:22 RMA (Rec: 08/04/22 14:22 RMA [id number]) Nutrition Malnutrition Evidence of Malnutrition Exists Yes Malnutrition (severe): Chronic Evidenced By Suboptimal Energy Intake ( Severe),Weight Loss (Severe) Clinical Problem Chronic Disease or Condition Related Malnutrition Etiology Severe protein-calorie malnutrition in the context of chronic disease and debility related to inadequate oral intake and need for mechanically altered food Signs/Symptoms as evidenced by ~9% wt loss in less than 1 month and PO meeting less than 50% estimated nutrition needs Status Active Problem Recommendation Dietitian Recommendations/Changes Will adjust diet to Regular/no added salt given signs/ symptoms of malnutrition. Texture/consistency as per QUILL PICKING MACHINE OPERATOR , currently [id number] foods and thin liquids. Will offer 120 ml ensure plus high protein TID w/ medpass as tolerated. Lab / Micro Data Result Diagrams: 08/06/22 04:59 08/06/22 04:59 Labs: Laboratory Results - last 24 hr 08/05/22 15:30: APTT 64.2 H 08/05/22 16:07: POC Glucose 275 H 08/05/22 18:54: Hgb 8.4 L, Hct 27.2 L 08/05/22 20:27: POC Glucose 258 H 08/05/22 21:07: APTT 116.5 H* 08/06/22 04:59: WBC 8.9, RBC 2.88 L, Hgb 8.4 L, Hct 26.6 L, MCV 92.4, MCH 29.2, MCHC 31.6 L, RDW Std Deviation 49.4 H, RDW Coeff of Gunnar 14.7 H, Plt Count 188, MPV 10.8, Immature Gran % (Auto) 0.700, Neut % (Auto) 69.6, Lymph % (Auto) 13.2 L, [place] % (Auto) 11.9 H, Eos % (Auto) 4.1, Baso % (Auto) 0.5, Absolute Neuts (auto) 6.2, Absolute Lymphs (auto) 1.17, Nucleated RBC % 0 08/06/22 04:59: Sodium 141, Potassium 4.0, Chloride 109 H, Carbon Dioxide 31.0, Anion Gap 1 L, BUN 55 H, Creatinine 2.04 H, Estim Creat Clear Calc 19.79, Est GFR (MDRD) Af Amer 30 L, Est GFR (MDRD) Non-Af 25 L, BUN/Creatinine Ratio 27.0 H , Glucose 240 H, Calcium 8.5, Total Bilirubin 1.50 H, AST 54 H, ALT 61 H, Alkaline Phosphatase 197 H, Total Protein 5.8 L, Albumin 2.0 L, Globulin 3.8, Albumin/Globulin Ratio 0.5 L 08/06/22 04:59: APTT 50.8 H 08/06/22 05:57: POC Glucose 230 H 08/06/22 11:39: POC Glucose 210 H 08/06/22 12:57: APTT 45.0 H Micro: Microbiology 08/05/22 16:05 Stool Stool Occult Blood (GLENN) - Final Occult Blood Positive 08/03/22 20:20 Urine Catheter - Catheter Urine Culture - Final Presumptive Lactobacillus sp. 08/03/22 14:39 Nasal Secretion SARS-CoV-2 & FLU Antigen (Rapid) - Final Rhythm Strip Rhythm Strip: A-fib Rate: 85 Ectopy: None Physical Exam Narrative Physical exam General: Awake, mild communicative. Intermittent confusion and disorientation. Obesity grade 3 BMI 33.8 kg/m? HEENT: Atraumatic, PERRLA, EOMI, Normocephalic. Mild icterus Oral: Oral mucosa moist. Deep oropharyngeal structures could not be visualized. Neck: Supple, No JVD, Negative Carotid Bruits Lungs: Air entry diminished in bilateral lung bases. No crepitation/rhonchi Cardiovascular: Paced rhythm, irregular, PVC, Normal S1, Normal S2, No murmurs Abdomen: Bowel Sounds good. Soft and nontender. Abdomen distention improving : Hernandez catheter clear urine. Patient denies burning micturition. No renal angle tenderness. No suprapubic tenderness. Extremities: Bilateral chronic leg nonpitting Edema, Capillary Refill Less than 3 Seconds Skin: No rashes, No breakdown Musculoskeletal: ROM severely restricted. Passive movement is stiff. Painful on flexion and extension. Neurological: Muscle strength 4/5 seems mainly due to physical deconditioning and edema. Psych/Mental Status: Flat affect. Assessment & Plan Assessment/Plan (1) AMS (altered mental status): (2) Acute kidney injury: (3) Acute liver disease: PLAN: Plan The patient is a 82-year-old female with multiple comorbidities sent from [facility] for altered mental status on top of dementia and a stroke and abnormal labs 1. CARLOS ALBERTO seems most likely prerenal but cannot rule out obstructive uropathy: [facility] Hernandez catheter ordered as abdomen is distended and for accurate intake and output measurement. Patient baseline creatinine about 1.5-1.7 noticed in MayJune 2022. Creatinine upon high 3.73 on 10/03, mild decrease 3.34 and 23.17. BUN elevated 79. CT abdomen and pelvis without contrast ordered as patient abdomen is distended and rule out obstructive uropathy. Nephrology consult. Patient had 1 L of normal saline bolus in ED and 1 more liter bolus ordered. Continue 100 mL/h after that. Hold nephrotoxic medications. 08/04: There is improvement in creatinine. Electrolytes in normal range. Discussed with the licensed practical nurse instructor. Agree with continuation of normal saline. CT abdomen does not show evidence of hydronephrosis or kidney stone. 08/05: Patient BUN/creatinine 59/1.95, improving trend. Electrolytes in normal range. Patient looks more short of breath therefore x-ray was done and does not show acute changes compared to 08/03/2022. Continue IV fluid for nutritional support. CKs 683. 08/06: BUN/creatinine 55/2.04, seems HEU baseline. Facility Administrator is following. Urine culture shows lactobacillus. Commensal organism. Does not have UTI. Does not need antibiotic 2. Acute liver injury, exact etiology unclear: Patient bilirubin found 2.3 on 08/02, increased doubled 4.1 on 08/03. No differential available. Patient also has increasing trend of transaminases and alkaline phosphatase. CT abdomen ordered. Liver ultrasound ordered for tomorrow AM. 08/04: Improvement in patient's total bilirubin. TV yesterday was 4.1, TB 2.9 therefore mainly direct. Today's 3.0. Improvement in transaminases and alkaline phosphatase. 08/05: ALI improving. Improvement in ALT AST and total bilirubin. Limited ultrasound shows cystic structure in GB fossa 2.2 x 1.6 x 1.4 cm, status postcholecystectomy. CBD 3.2 mm. 08/06: ALT AST and alkaline phosphatase improving trend. 3. Altered mental status/acute encephalopathy possible metabolic on baseline dementia, previous stroke: Continue baby aspirin. PT OT speech therapy evaluation. Patient was last admitted in March 2022 for debility, generalized weakness and earlier in 2021 she had a stroke. Rapid SARS-CoV-2 and flu antigen negative. Hold sedative/SSRI medications. Chest x-ray image reviewed shows left lower lobe and CP angle obliteration similar to previous x-ray 11/26/2021. Has AICD. 08/04: Improvement in mental status but patient seems chronically physically and mentally debilitated possible dementia and previous stroke. PT and OT ordered. 4. Chronic normocytic normochromic anemia, anemia of chronic disease: H&H 9.7/31.3. Mild leukocytosis. Platelet count 176,000. Neutrophils 78.3% 08/05: Hemoglobin dropped to 7.9/26.1. Platelet count 175,000. Patient on IV heparin drip. Protonix 40 mg IV twice daily ordered. Discontinue baby aspirin and cilostazol. Patient also has chronic constipation 08/06: Hemoglobin improved to 8.4. Platelet count 88,000. Continue IV heparin drip and Protonix. 5. 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 Hold nephrotoxic medications losartan. 6. History of DVT: Xarelto was discontinued for patient with history of GI bleed. In March 2022, venous duplex was negative. Venous duplex is ordered. 08/04: Patient has acute DVT of right popliteal and tibioperoneal trunk. Superficial thrombosis/thrombophlebitis of right GSV with thrombus extending to CFV junction. Superficial thrombophlebitis of left proximal GSV extending to 1.8 cm from CFV. Patient has been chronically bedridden. Patient dropped hemoglobin to 8.1 from 9.7 on heparin subcu therefore not good for Lovenox or NOACs. Heparin drip started without bolus for ED reversibility. 7. Type 2 diabetes mellitus: Medications on hold.?? Accu-Chek before meals and at bedtime coverage Humalog sliding scale. 08/04 glucose in 90s. 08/06 glucose in 200s. 7.? Hyperlipidemia: Hold statin because of acute liver injury ? 8.? History of breast cancer: On Arimidex. Total time of the visit including total time spent in counseling or coordination of care, (more than 50% of the total time, spent in obtaining medical information from nurses and other ancillary care providers,explaining to the patient about labs, imaging, diagnosis and management of active complex medical conditions), discussion with direct sales consultant, review of labs and imaging is 40 minutes. Living will/advanced directive/end of life care: [facility] CC. Patient is not awake to confirm that. While it seems patient has living will as per documentation from facesheet. We will maintain DNRCC. Total time spent in [id number] encounter in discussion of advanced directive 16 minutes. Charges/Coding Visit Charges Inpatient E&M: 90438 Subs Hosp L3
[2022-08-06] MEDS: Tamsulosin HCl 0.4 MG Capsule PO (16:42)
[2022-08-06] MEDS: Ferrous Sulfate 325 MG Tablet PO (16:57)
[2022-08-06 17:31] LABS: Bedside Glucose 253 mg/dL (74-106)
[2022-08-06] MEDS: Ondansetron 4 MG/2 ML Vial IV (18:49)
[2022-08-06] MEDS: 0.9% Saline Lock 10 ML Syringe IV (18:49)
[2022-08-06] MEDS: oxyCODONE 5 MG Tablet PO (20:01)
[2022-08-06] MEDS: proMETHazine 25 MG Tablet 12.5 MG PO (20:01)
[2022-08-06 20:20] LABS: Partial Thromboplast Time 50.2 Seconds (24.1-36.2)
[2022-08-06 21:45] LABS: Bedside Glucose 218 mg/dL (74-106)
[2022-08-07] VITALS (8 sets, daily range): BP systolic 127–155; BP diastolic 46–69; PULSE 52–61; RESP 14–20; TEMP 37–37.4; O2SAT 94–100
[2022-08-07 03:06] LABS: Partial Thromboplast Time 56.9 Seconds (24.1-36.2)
[2022-08-07 03:22] LABS: Ferritin 506 ng/mL (8-252); Iron 26 ug/dL (50-170); Iron Binding Capacity,Total 184 ug/dL (250-450); PERCENT IRON SATURATION 14.1 % (15.0-55.0)
[2022-08-07] MEDS: oxyCODONE 5 MG Tablet PO ×3 (03:28→21:04)
[2022-08-07] MEDS: Insulin Lispro 100 UNIT/ML INSULN.PEN SC ×4 (06:11→21:06)
[2022-08-07] MEDS: Menthol/Lanolin/Calamine/Znox 113 GM Tube 1 APPLIC TOPICAL ×2 (06:12→21:08)
[2022-08-07 06:46] LABS: Bedside Glucose 245 mg/dL (74-106)
[2022-08-07 09:37] LABS: Partial Thromboplast Time 41.5 Seconds (24.1-36.2)
[2022-08-07] MEDS: Pantoprazole Sodium 40 MG Tablet PO ×2 (10:35→21:06)
[2022-08-07] MEDS: Isosorbide Mononitrate 30 MG Tablet PO (10:35)
[2022-08-07] MEDS: Anastrozole 1 MG TABLET PO (10:35)
[2022-08-07] MEDS: Metoprolol(XL)Succ 25 MG Tablet PO (10:36)
--- NOTE | 2022-08-07 11:17 | PN.HOSP_ITS ---
Subjective Subjective Follow-up for CARLOS ALBERTO, acute liver injury, generalized debility Objective Data Objective Data Vital Signs: Vital Signs Temp Pulse Resp BP Pulse Ox O2 Del Method O2 Flow Rate 98.6 F 61 18 140/69 H 100 Nasal Cannula 2 08/07/22 08:01 08/07/22 10:36 08/07/22 08:56 08/07/22 10:36 08/07/22 08:56 08/07/22 08:56 08/07/22 08:56 Oxygen Flow Rate (L/min) 2 Oxygen Delivery Method Nasal Cannula Weight: 210 lb 12.191 oz Body Mass Index (BMI) 32.8 Intake & Output: Intake and Output for Last 24 Hours 08/05/22 08/06/22 08/07/22 23:59 23:59 23:59 Intake Total 1975.39 / 1975.39 1922.18 / 192.18 86.7 / 86.7 Output Total 1100 / 1100 700 / 700 300 / 300 Balance 875.39 / 875.39 1222.18 / 1222.18 -213.3 / -213.3 Medical Nutrition Assessment Dietitian: Malnutrition Criteria Met Start: 08/04/22 14:22 Freq: Status: Active Protocol: Document 08/04/22 14:22 RMA (Rec: 08/04/22 14:22 RMA [id number]) Nutrition Malnutrition Evidence of Malnutrition Exists Yes Malnutrition (severe): Chronic Evidenced By Suboptimal Energy Intake ( Severe),Weight Loss (Severe) Clinical Problem Chronic Disease or Condition Related Malnutrition Etiology Severe protein-calorie malnutrition in the context of chronic disease and debility related to inadequate oral intake and need for mechanically altered food Signs/Symptoms as evidenced by ~9% wt loss in less than 1 month and PO meeting less than 50% estimated nutrition needs Status Active Problem Recommendation Dietitian Recommendations/Changes Will adjust diet to Regular/no added salt given signs/ symptoms of malnutrition. Texture/consistency as per COMPUTER CONSULTANT , currently [id number] foods and thin liquids. Will offer 120 ml ensure plus high protein TID w/ medpass as tolerated. Lab / Micro Data Result Diagrams: 08/06/22 04:59 08/06/22 04:59 Labs: Laboratory Results - last 24 hr 08/06/22 11:39: POC Glucose 210 H 08/06/22 12:57: APTT 45.0 H 08/06/22 16:39: POC Glucose 253 H 08/06/22 19:30: APTT 50.2 H 08/06/22 20:00: POC Glucose 218 H 08/07/22 02:45: Iron 26 L, TIBC 184 L, Iron Saturation 14.1 L, Ferritin 506 H 08/07/22 02:45: APTT 56.9 H 08/07/22 06:11: POC Glucose 245 H 08/07/22 08:45: APTT 41.5 H Micro: Microbiology 08/05/22 16:05 Stool Stool Occult Blood (GLENN) - Final Occult Blood Positive 08/03/22 20:20 Urine Catheter - Catheter Urine Culture - Final Presumptive Lactobacillus sp. 08/03/22 14:39 Nasal Secretion SARS-CoV-2 & FLU Antigen (Rapid) - Final Rhythm Strip Rhythm Strip: A-fib Rate: 85 Ectopy: None Physical Exam Narrative General: Awake? Intermittent confusion and disorientation.? Obesity grade 3 BMI 33.8 kg/m? HEENT: Atraumatic, PERRLA, EOMI, Normocephalic.? Mild icterus Oral: Oral mucosa moist.? Deep oropharyngeal structures could not be visualized.? Neck: Supple, No JVD, Negative Carotid Bruits Lungs:? Air entry diminished in bilateral lung bases.? No crepitation/rhonchi Cardiovascular: Paced rhythm, irregular, PVC,? Normal S1, Normal S2, No murmurs Abdomen: Bowel Sounds good.? Soft and nontender. No abdominal distention : Hernandez catheter clear urine.? Patient denies burning micturition.? No renal angle tenderness.? No suprapubic tenderness. Extremities: Bilateral chronic leg nonpitting? Edema, Capillary Refill Less than 3 Seconds Skin: No rashes, No breakdown Musculoskeletal: ROM severely restricted.? Passive movement is stiff.? Painful on flexion and extension. Neurological:? Muscle strength 4/5 seems mainly due to physical deconditioning and edema. Psych/Mental Status: Flat affect. Assessment & Plan Assessment/Plan (1) AMS (altered mental status): (2) Acute kidney injury: (3) Acute liver disease: PLAN: Plan The patient is a 82-year-old female with multiple comorbidities sent from [facility] for altered mental status on top of dementia and a stroke and abnormal labs 1. CARLOS ALBERTO seems most likely prerenal but cannot rule out obstructive uropathy: [facility] Hernandez catheter ordered as abdomen is distended and for accurate intake and output measurement. Patient baseline creatinine about 1.5-1.7 noticed in MayJune 2022. Creatinine upon high 3.73 on 10/03, mild decrease 3.34 and 23.17. BUN elevated 79. CT abdomen and pelvis without contrast ordered as patient abdomen is distended and rule out obstructive uropathy. Nephrology consult. Patient had 1 L of normal saline bolus in ED and 1 more liter bolus ordered. Continue 100 mL/h after that. Hold nephrotoxic medications. 08/04: There is improvement in creatinine. Electrolytes in normal range. Discussed with the supervisor shaving and splitting. Agree with continuation of normal saline. CT abdomen does not show evidence of hydronephrosis or kidney stone. 08/05: Patient BUN/creatinine 59/1.95, improving trend. Electrolytes in normal range. Patient looks more short of breath therefore x-ray was done and does not show acute changes compared to 08/03/2022. Continue IV fluid for nutritional support. CKs 683. 08/06: BUN/creatinine 55/2.04, seems HEU baseline. Communications Writer is following. Urine culture shows lactobacillus. Commensal organism. Does not have UTI. Does not need antibiotic 08/07: Labs ordered. Will discontinue Hernandez catheter. 2. Acute liver injury, exact etiology unclear: Patient bilirubin found 2.3 on 08/02, increased doubled 4.1 on 08/03. No differential available. Patient also has increasing trend of transaminases and alkaline phosphatase. CT abdomen ordered. Liver ultrasound ordered for tomorrow AM. 08/04: Improvement in patient's total bilirubin. TV yesterday was 4.1, TB 2.9 therefore mainly direct. Today's 3.0. Improvement in transaminases and alkaline phosphatase. 08/05: ALI improving. Improvement in ALT AST and total bilirubin. Limited ultrasound shows cystic structure in GB fossa 2.2 x 1.6 x 1.4 cm, status postcholecystectomy. CBD 3.2 mm. 08/06: ALT AST and alkaline phosphatase improving trend. 3. Altered mental status/acute encephalopathy possible metabolic on baseline dementia, previous stroke: Continue baby aspirin. PT OT speech therapy evaluation. Patient was last admitted in March 2022 for debility, generalized weakness and earlier in 2021 she had a stroke. Rapid SARS-CoV-2 and flu antigen negative. Hold sedative/SSRI medications. Chest x-ray image reviewed shows left lower lobe and CP angle obliteration similar to previous x-ray 11/26/2021. Has AICD. 08/04: Improvement in mental status but patient seems chronically physically and mentally debilitated possible dementia and previous stroke. PT and OT ordered. 4. Chronic normocytic normochromic anemia, anemia of chronic disease: H&H 9.7/31.3. Mild leukocytosis. Platelet count 176,000. Neutrophils 78.3% 08/05: Hemoglobin dropped to 7.9/26.1. Platelet count 175,000. Patient on IV heparin drip. Protonix 40 mg IV twice daily ordered. Discontinue baby aspirin and cilostazol. Patient also has chronic constipation 08/06: Hemoglobin improved to 8.4. Platelet count 88,000. Continue IV heparin drip and Protonix. 08/07: No further bleed. 5. 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 Hold nephrotoxic medications losartan. 6. History of DVT: Xarelto was discontinued for patient with history of GI bleed. In March 2022, venous duplex was negative. Venous duplex is ordered. 08/04: Patient has acute DVT of right popliteal and tibioperoneal trunk. Superficial thrombosis/thrombophlebitis of right GSV with thrombus extending to CFV junction. Superficial thrombophlebitis of left proximal GSV extending to 1.8 cm from CFV. Patient has been chronically bedridden. Patient dropped hemoglobin to 8.1 from 9.7 on heparin subcu therefore not good for Lovenox or NOACs. Heparin drip started without bolus for ED reversibility. 7. Type 2 diabetes mellitus: Medications on hold.?? Accu-Chek before meals and at bedtime coverage Humalog sliding scale. 08/04 glucose in 90s. 08/06 glucose in 200s. 7.? Hyperlipidemia: Hold statin because of acute liver injury ? 8.? History of breast cancer: On Arimidex. Living will/advanced directive/end of life care: [facility] and states DNR CC. Patient is not awake to confirm that. While it seems patient has living will as per documentation from facesheet. We will main michael [email or web address]. Charges/Coding Visit Charges Inpatient E&M: 08447 Subs Hosp L2
[2022-08-07] MEDS: Insulin Glargine-YFGN 100 UNIT/ML Pen 15 UNIT SC (11:22)
[2022-08-07 11:43] LABS: Absolute Lymphocyte Count 1.88 X10^3/uL (0.83-4.51); Absolute Neutrophil Count 4.9 X10^3/uL (2.0-7.7); Basophil# 0.06 X10^3/uL; Basophil% 0.7 % (0-1); Eosinophils% 2.4 % (0-5); Hematocrit 26.8 % (37-47); Hemoglobin 8.4 g/dL (12.0-15.0); Lymphocyte # 1.88 X10^3/ul (0.83-4.51); Lymphocyte % 22.6 % (19-41); Mean Corp Hgb Conc 31.3 g/dL (32-36); Mean Corpuscular Hgb 28.9 pg (27.0-32.0); Mean Corpuscular Volume 92.1 fL (81-99); Mean Platelet Vol. 11.4 fl (6.2-12.0); Monocyte# 1.15 X10^3/uL; Monocyte% 13.8 % (0-10); NRBC Flagged by Analyzer 0 % (0-5); Neutrophil # 4.87 X10^3/uL (2.7-7.7); Neutrophil % 58.6 % (47-70); Platelet Count 245 K/mm3 (150-450); RBC Distribution Width CV 15.1 % (11.6-14.6); RBC Distribution Width SD 49.8 fl (35.1-43.9); Red Blood Count 2.91 M/mm3 (4.2-5.4); White Blood Count 8.3 K/mm3 (4.4-11.0)
[2022-08-07 11:47] LABS: Anion Gap 2 (5-15); BUN 52 mg/dL (7-18); BUN/Creat Ratio 30.8 RATIO (10-20); Calcium,Total 8.9 mg/dL (8.5-10.1); Chloride 113 mmol/L (98-107); Creatinine, Serum 1.69 mg/dL (0.55-1.02); EST Glomerular Filtration Rate 31 mL/min (>60); Est Glom Filt Rate - Afr Amer 37 mL/min (>60); Estimated Creatinine Clearance 23.89 ml/min; Glucose 205 mg/dL (74-106); Potassium 3.9 mmol/L (3.5-5.1); Sodium Level 144 mmol/L (136-145)
[2022-08-07 12:06] LABS: Bedside Glucose 214 mg/dL (74-106)
[2022-08-07] MEDS: Ferrous Sulfate 325 MG Tablet PO (12:09)
--- NOTE | 2022-08-07 16:29 | PN.RENAL_ITS ---
Subjective Subjective no new events Objective Data Objective Data Vital Signs: Vital Signs Temp Pulse Resp BP Pulse Ox O2 Del Method O2 Flow Rate 99.0 F 52 L 14 139/50 H 94 Room Air 2 08/07/22 14:00 08/07/22 14:00 08/07/22 14:00 08/07/22 14:00 08/07/22 14:00 08/07/22 14:00 08/07/22 08:56 Oxygen Flow Rate (L/min) 2 Oxygen Delivery Method Room Air Weight: 95.6 kg Body Mass Index (BMI) 32.8 Intake & Output: Intake and Output for Last 24 Hours 08/05/22 08/06/22 08/07/22 23:59 23:59 23:59 Intake Total 1975.39 / 1975.39 1922.18 / 1922.18 286.7 / 286.7 Output Total 1100 / 1100 700 / 700 650 / 650 Balance 875.39 / 875.39 1222.18 / 1222.18 -363.3 / -363.3 Medical Nutrition Assessment Dietitian: Malnutrition Criteria Met Start: 08/04/22 14:22 Freq: Status: Active Protocol: Document 08/04/22 14:22 RMA (Rec: 08/04/22 14:22 RMA [id number]) Nutrition Malnutrition Evidence of Malnutrition Exists Yes Malnutrition (severe): Chronic Evidenced By Suboptimal Energy Intake ( Severe),Weight Loss (Severe) Clinical Problem Chronic Disease or Condition Related Malnutrition Etiology Severe protein-calorie malnutrition in the context of chronic disease and debility related to inadequate oral intake and need for mechanically altered food Signs/Symptoms as evidenced by ~9% wt loss in less than 1 month and PO meeting less than 50% estimated nutrition needs Status Active Problem Recommendation Dietitian Recommendations/Changes Will adjust diet to Regular/no added salt given signs/ symptoms of malnutrition. Texture/consistency as per SHEETMETAL PATTERNMAKER , currently [id number] foods and thin liquids. Will offer 120 ml ensure plus high protein TID w/ medpass as tolerated. Lab / Micro Data Result Diagrams: 08/07/22 08:45 08/07/22 08:45 Labs: Laboratory Results - last 24 hr 08/06/22 16:39: POC Glucose 253 H 08/06/22 19:30: APTT 50.2 H 08/06/22 20:00: POC Glucose 218 H 08/07/22 02:45: Iron 26 L, TIBC 184 L, Iron Saturation 14.1 L, Ferritin 506 H 08/07/22 02:45: APTT 56.9 H 08/07/22 06:11: POC Glucose 245 H 08/07/22 08:45: APTT 41.5 H 08/07/22 08:45: WBC 8.3, RBC 2.91 L, Hgb 8.4 L, Hct 26.8 L, MCV 92.1, MCH 28.9, MCHC 31.3 L, RDW Std Deviation 49.8 H, RDW Coeff of Gunnar 15.1 H, Plt Count 245, MPV 11.4, Immature Gran % (Auto) 1.900 H, Neut % (Auto) 58.6, Lymph % (Auto) 22.6, Jessamine % (Auto) 13.8 H, Eos % (Auto) 2.4, Baso % (Auto) 0.7, Absolute Neuts (auto) 4.9, Absolute Lymphs (auto) 1.88, Nucleated RBC % 0 08/07/22 08:45: Sodium 144, Potassium 3.9, Chloride 113 H, Carbon Dioxide 29.0, Anion Gap 2 L, BUN 52 H, Creatinine 1.69 H, Estim Creat Clear Calc 23.89, Est GFR (MDRD) Af Amer 37 L, Est GFR (MDRD) Non-Af 31 L, BUN/Creatinine Ratio 30.8 H , Glucose 205 H, Calcium 8.9 08/07/22 11:21: POC Glucose 214 H Micro: Microbiology 08/05/22 16:05 Stool Stool Occult Blood (GLENN) - Final Occult Blood Positive 08/03/22 20:20 Urine Catheter - Catheter Urine Culture - Final Presumptive Lactobacillus sp. 08/03/22 14:39 Nasal Secretion SARS-CoV-2 & FLU Antigen (Rapid) - Final Rhythm Strip Rhythm Strip: A-fib Rate: 85 Ectopy: None Physical Exam Narrative Alert to name only, confused to place and time. Sitting in chair. No apparent distress S1, S2 RRR Lung sounds clear anteriorly, diminished breath sounds posteriorly. No wheezing Abdomen soft, nontender, positive bowel sounds x4 quadrants No edema noted bilateral lower legs, feet or thighs Indwelling Hernandez with clear urine in bag Assessment & Plan Assessment/Plan (1) Acute kidney failure: (2) AMS (altered mental status): (3) CKD (chronic kidney disease): (4) Abnormal LFTs: PLAN: Plan acute kidney injury superimposed on chronic kidney disease stage IIIa. CARLOS ALBERTO likely prerenal likely from poor oral intake with concurrent losartan and diuretic use. No hyperkalemia, no metabolic acidosis and volume status acceptable with no overt fluid overload. Noncontrast CT did not show any hydronephrosis or obstructing stone, bladder unremarkable, liver unremarkable. Reviewed past creatinine trends, patient has evidence of elevated serum creatinine dating back to at least 2013, baseline creatinine ranging now around 1.4-1.7 as of June 2022. Patient may have diabetic kidney disease. Urine protein creatinine ratio is not impressive. Creatinine today is about the same as yesterday. Volume status looks good. Urine output acceptable. Hold fluids. Hernandez catheter can be removed Creatinine is at baseline
[2022-08-07 16:46] LABS: Bedside Glucose 235 mg/dL (74-106)
[2022-08-07] MEDS: Ensure Plus High Protein 120 ML LIQUID PO (16:54)
[2022-08-07] MEDS: Tamsulosin HCl 0.4 MG Capsule PO (16:54)
[2022-08-07 18:09] LABS: Partial Thromboplast Time 61.6 Seconds (24.1-36.2)
[2022-08-07] MEDS: proMETHazine 25 MG Tablet 12.5 MG PO (21:04)
[2022-08-07] MEDS: Insulin Glargine-YFGN 100 UNIT/ML Pen 10 UNIT SC (21:05)
[2022-08-07] MEDS: Senna/Docusate Sodium 1 Tablet 2 TABLET PO (21:06)
[2022-08-07 23:10] LABS: Bedside Glucose 232 mg/dL (74-106)
[2022-08-08] VITALS (7 sets, daily range): BP systolic 126–135; BP diastolic 49–71; PULSE 60–73; RESP 18; TEMP 36.3–36.9; O2SAT 94–96
[2022-08-08 06:17] LABS: Absolute Lymphocyte Count 1.88 X10^3/uL (0.83-4.51); Absolute Neutrophil Count 4.7 X10^3/uL (2.0-7.7); Basophil# 0.08 X10^3/uL; Basophil% 0.9 % (0-1); Eosinophil# 0.42 X10^3/uL; Hematocrit 26.3 % (37-47); Lymphocyte # 1.88 X10^3/ul (0.83-4.51); Lymphocyte % 22.2 % (19-41); Mean Corp Hgb Conc 30.4 g/dL (32-36); Mean Corpuscular Hgb 28.8 pg (27.0-32.0); Mean Corpuscular Volume 94.6 fL (81-99); Mean Platelet Vol. 10.5 fl (6.2-12.0); Monocyte# 1.16 X10^3/uL; Monocyte% 13.7 % (0-10); NRBC Flagged by Analyzer 0 % (0-5); Neutrophil % 55.7 % (47-70); Platelet Count 267 K/mm3 (150-450); RBC Distribution Width CV 15.2 % (11.6-14.6); RBC Distribution Width SD 51.8 fl (35.1-43.9); Red Blood Count 2.78 M/mm3 (4.2-5.4); White Blood Count 8.5 K/mm3 (4.4-11.0)
[2022-08-08] MEDS: Insulin Lispro 100 UNIT/ML INSULN.PEN SC ×2 (06:24→11:20)
[2022-08-08] MEDS: Menthol/Lanolin/Calamine/Znox 113 GM Tube 1 APPLIC TOPICAL (06:26)
[2022-08-08 06:31] LABS: Partial Thromboplast Time 49.5 Seconds (24.1-36.2)
[2022-08-08] MEDS: HEPARIN/D5w 25,000 UNITS 25,000 UNITS/250 ML IV.SOLN. 8 UNITS CONT INF (06:44)
[2022-08-08 06:45] LABS: Bedside Glucose 310 mg/dL (74-106)
[2022-08-08 06:45] LABS: Anion Gap 4 (5-15); BUN 47 mg/dL (7-18); BUN/Creat Ratio 29.6 RATIO (10-20); Calcium,Total 8.7 mg/dL (8.5-10.1); Chloride 110 mmol/L (98-107); Creatinine, Serum 1.59 mg/dL (0.55-1.02); EST Glomerular Filtration Rate 33 mL/min (>60); Est Glom Filt Rate - Afr Amer 40 mL/min (>60); Estimated Creatinine Clearance 25.39 ml/min; Glucose 181 mg/dL (74-106); Potassium 3.9 mmol/L (3.5-5.1); Sodium Level 142 mmol/L (136-145)
--- NOTE | 2022-08-08 08:33 | PCM.PN.REN ---
Documented by User: JAYRO Barragan 08/08/22 08:38 Subjective Subjective Resting in bed. No overnight events. No apparent distress. Objective Data Objective Data Vital Signs: Vital Signs Temp Pulse Resp BP Pulse Ox O2 Del Method O2 Flow Rate 98.5 F 65 18 126/52 H 94 Nasal Cannula 2 08/08/22 03:41 08/08/22 03:41 08/08/22 03:41 08/08/22 03:41 08/08/22 08:05 08/08/22 08:05 08/08/22 08:05 Oxygen Flow Rate (L/min) 2 Oxygen Delivery Method Nasal Cannula Weight: 92.8 kg Body Mass Index (BMI) 32.8 Intake & Output: Intake and Output for Last 24 Hours 08/06/22 08/07/22 08/08/22 23:59 23:59 23:59 Intake Total 1922.18 / 1922.18 374.9 / 374.9 45.35 / 45.35 Output Total 700 / 700 650 / 650 Balance 1222.18 / 1222.18 -275.1 / -275.1 45.35 / 45.35 Medical Nutrition Assessment Dietitian: Malnutrition Criteria Met Start: 08/04/22 14:22 Freq: Status: Active Protocol: Document 08/04/22 14:22 RMA (Rec: 08/04/22 14:22 RMA [id number]) Nutrition Malnutrition Evidence of Malnutrition Exists Yes Malnutrition (severe): Chronic Evidenced By Suboptimal Energy Intake ( Severe),Weight Loss (Severe) Clinical Problem Chronic Disease or Condition Related Malnutrition Etiology Severe protein-calorie malnutrition in the context of chronic disease and debility related to inadequate oral intake and need for mechanically altered food Signs/Symptoms as evidenced by ~9% wt loss in less than 1 month and PO meeting less than 50% estimated nutrition needs Status Active Problem Recommendation Dietitian Recommendations/Changes Will adjust diet to Regular/no added salt given signs/ symptoms of malnutrition. Texture/consistency as per HOSPITAL RECEIVING CLERK , currently [id number] foods and thin liquids. Will offer 120 ml ensure plus high protein TID w/ medpass as tolerated. Lab / Micro Data Result Diagrams: 08/08/22 05:55 08/08/22 05:55 Labs: Laboratory Results - last 24 hr 08/07/22 08:45: APTT 41.5 H 08/07/22 08:45: WBC 8.3, RBC 2.91 L, Hgb 8.4 L, Hct 26.8 L, MCV 92.1, MCH 28.9, MCHC 31.3 L, RDW Std Deviation 49.8 H, RDW Coeff of Gunnar 15.1 H, Plt Count 245, MPV 11.4, Immature Gran % (Auto) 1.900 H, Neut % (Auto) 58.6, Lymph % (Auto) 22.6, Rhea % (Auto) 13.8 H, Eos % (Auto) 2.4, Baso % (Auto) 0.7, Absolute Neuts (auto) 4.9, Absolute Lymphs (auto) 1.88, Nucleated RBC % 0 08/07/22 08:45: Sodium 144, Potassium 3.9, Chloride 113 H, Carbon Dioxide 29.0, Anion Gap 2 L, BUN 52 H, Creatinine 1.69 H, Estim Creat Clear Calc 23.89, Est GFR (MDRD) Af Amer 37 L, Est GFR (MDRD) Non-Af 31 L, BUN/Creatinine Ratio 30.8 H, Glucose 205 H, Calcium 8.9 08/07/22 11:21: POC Glucose 214 H 08/07/22 16:10: POC Glucose 235 H 08/07/22 17:17: APTT 61.6 H 08/07/22 21:03: POC Glucose 232 H 08/07/22 23:05: APTT 56.0 H 08/08/22 05:55: WBC 8.5, RBC 2.78 L, Hgb 8.0 L, Hct 26.3 L, MCV 94.6, MCH 28.8, MCHC 30.4 L, RDW Std Deviation 51.8 H, RDW Coeff of Gunnar 15.2 H, Plt Count 267, MPV 10.5, Immature Gran % (Auto) 2.500 H, Neut % (Auto) 55.7, Lymph % (Auto) 22.2, Rhea % (Auto) 13.7 H, Eos % (Auto) 5.0, Baso % (Auto) 0.9, Absolute Neuts (auto) 4.7, Absolute Lymphs (auto) 1.88, Nucleated RBC % 0 08/08/22 05:55: Sodium 142, Potassium 3.9, Chloride 110 H, Carbon Dioxide 28.0, Anion Gap 4 L, BUN 47 H, Creatinine 1.59 H, Estim Creat Clear Calc 25.39, Est GFR (MDRD) Af Amer 40 L, Est GFR (MDRD) Non-Af 33 L, BUN/Creatinine Ratio 29.6 H, Glucose 181 H, Calcium 8.7 08/08/22 05:55: APTT 49.5 H 08/08/22 06:23: POC Glucose 310 H Micro: Microbiology 08/05/22 16:05 Stool Stool Occult Blood (GLENN) - Final Occult Blood Positive 08/03/22 20:20 Urine Catheter - Catheter Urine Culture - Final Presumptive Lactobacillus sp. 08/03/22 14:39 Nasal Secretion SARS-CoV-2 & FLU Antigen (Rapid) - Final Rhythm Strip Rhythm Strip: A-fib Rate: 85 Ectopy: None Physical Exam Narrative Alert to name only, confused to time. No apparent distress S1, S2 RRR Lung sounds clear anteriorly, diminished breath sounds posteriorly. No wheezing, rhonchi or rales Abdomen soft, nontender, positive bowel sounds x4 quadrants No edema noted bilateral lower legs, feet or thighs Assessment & Plan Assessment/Plan (1) Acute kidney failure: (2) AMS (altered mental status): (3) CKD (chronic kidney disease): (4) Abnormal LFTs: PLAN: Plan - Nonoliguric Acute kidney injury superimposed on chronic kidney disease stage IIIa. CARLOS ALBERTO likely prerenal likely from poor oral intake with concurrent losartan and diuretic use. No hyperkalemia, no metabolic acidosis and volume status acceptable with no overt fluid overload. Noncontrast CT did not show any hydronephrosis or obstructing stone, bladder unremarkable, liver unremarkable. Reviewed past creatinine trends, patient has evidence of elevated serum creatinine dating back to at least 2013, baseline creatinine ranging now around 1.4-1.7 as of June 2022. Patient may have diabetic kidney disease. Urine protein creatinine ratio is not impressive. Serum creatinine peaked 3.73 mg/dL on admission and today is 1.59 mg/dL Creatinine is at baseline - Blood pressures acceptable, on Toprol - On heparin drip for DVT Documented by User: Dr. Karthik Holland MD 08/08/22 15:16 Objective Data Lab / Micro Data Result Diagrams: 08/08/22 05:55 08/08/22 05:55 Assessment & Plan Assessment/Plan (1) Acute kidney failure: (2) AMS (altered mental status): (3) CKD (chronic kidney disease): (4) Abnormal LFTs: PLAN: Plan - Nonoliguric Acute kidney injury superimposed on chronic kidney disease stage IIIa. CARLOS ALBERTO likely prerenal likely from poor oral intake with concurrent losartan and diuretic use. No hyperkalemia, no metabolic acidosis and volume status acceptable with no overt fluid overload. Noncontrast CT did not show any hydronephrosis or obstructing stone, bladder unremarkable, liver unremarkable. Reviewed past creatinine trends, patient has evidence of elevated serum creatinine dating back to at least 2013, baseline creatinine ranging now around 1.4-1.7 as of June 2022. Patient may have diabetic kidney disease. Urine protein creatinine ratio is not impressive. Serum creatinine peaked 3.73 mg/dL on admission and today is 1.59 mg/dL Creatinine is at baseline - Blood pressures acceptable, on Toprol - On heparin drip for DVT addendum seen and examined independently. wesly Anthony
[2022-08-08] MEDS: Insulin Glargine-YFGN 100 UNIT/ML Pen 15 UNIT SC (09:10)
[2022-08-08] MEDS: Ensure Plus High Protein 120 ML LIQUID PO (09:10)
[2022-08-08] MEDS: Isosorbide Mononitrate 30 MG Tablet PO (09:11)
[2022-08-08] MEDS: Anastrozole 1 MG TABLET PO (09:11)
[2022-08-08] MEDS: oxyCODONE 5 MG Tablet PO (09:11)
[2022-08-08] MEDS: Metoprolol(XL)Succ 25 MG Tablet PO (09:11)
[2022-08-08] MEDS: Senna/Docusate Sodium 1 Tablet 2 TABLET PO (09:11)
[2022-08-08] MEDS: Pantoprazole Sodium 40 MG Tablet PO (09:11)
--- NOTE | 2022-08-08 10:15 | TREXTCAR_ITS ---
Diet Diet Order/Speech Therapy: 08/04/22 13:05 Diet: Regular - General Food consistency:: Easy to Chew Liquid Consistency:: Regular/Thin Dietary Modifications:: No Added Salt Is pt able to select menu?: No Diet Comments: DISANT SUPERVISION, HOB 90 DEGREES, GENERAL SWALLOW PRECAUTIONS Routine Orders/Code Status Suppository Type: Dulcolax 10mg Suppository Frequency: Daily PRN Code Status: DNRCC Therapies Weight Bearing: Weight bearing as tolerated Extremity Affected:: Bilateral Lower Physical Therapy: Eval and Treat Occupational Therapy: Eval and Treat Speech Therapy: Eval and Treat Problem/Diagnosis (1) Acute kidney failure: Status: Acute Code(s): N17.9 - Acute kidney failure, unspecified (2) AMS (altered mental status): Status: Acute Code(s): R41.82 - Altered mental status, unspecified (3) CKD (chronic kidney disease): Status: Chronic Code(s): N18.9 - Chronic kidney disease, unspecified (4) Abnormal LFTs: Status: Acute Code(s): R79.89 - Other specified abnormal findings of blood chemistry Plan The patient is a 82-year-old female with multiple comorbidities sent from [facility] for altered mental status on top of dementia and a stroke and abnormal labs 1. CARLOS ALBERTO seems most likely prerenal but cannot rule out obstructive uropathy: Patient is being admitted on [facility] floor. Hernandez catheter ordered as abdomen is distended and for accurate intake and output measurement. Patient baseline creatinine about 1.5-1.7 noticed in MayJune 2022. Creatinine upon high 3.73 on 10/03, mild decrease 3.34 and 23.17. BUN elevated 79. CT abdomen and pelvis without contrast ordered as patient abdomen is distended and rule out obstructive uropathy. Nephrology consult. Patient had 1 L of normal saline bolus in ED and 1 more liter bolus ordered. Continue 100 mL/h after that. Hold nephrotoxic medications. 08/04: There is improvement in creatinine. Electrolytes in normal range. Discussed with the art consultant. Agree with continuation of normal saline. CT abdomen does not show evidence of hydronephrosis or kidney stone. 08/05: Patient BUN/creatinine 59/1.95, improving trend. Electrolytes in normal range. Patient looks more short of breath therefore x-ray was done and does not show acute changes compared to 08/03/2022. Continue IV fluid for nutritional support. CKs 683. 08/06: BUN/creatinine 55/2.04, seems HEU baseline. Ground Instructor Basic is following. Urine culture shows lactobacillus. Commensal organism. Does not have UTI. Does not need antibiotic 08/07: Labs ordered. Will discontinue Hernandez catheter. 2. Acute liver injury, exact etiology unclear: Patient bilirubin found 2.3 on 08/02, increased doubled 4.1 on 08/03. No differential available. Patient also has increasing trend of transaminases and alkaline phosphatase. CT abdomen ordered. Liver ultrasound ordered for tomorrow AM. 08/04: Improvement in patient's total bilirubin. TV yesterday was 4.1, TB 2.9 therefore mainly direct. Today's 3.0. Improvement in transaminases and alkaline phosphatase. 08/05: ALI improving. Improvement in ALT AST and total bilirubin. Limited ultrasound shows cystic structure in GB fossa 2.2 x 1.6 x 1.4 cm, status postcholecystectomy. CBD 3.2 mm. 08/06: ALT AST and alkaline phosphatase improving trend. 3. Altered mental status/acute encephalopathy possible metabolic on baseline dementia, previous stroke: Continue baby aspirin. PT OT speech therapy evaluation. Patient was last admitted in March 2022 for debility, generalized weakness and earlier in 2021 she had a stroke. Rapid SARS-CoV-2 and flu antigen negative. Hold sedative/SSRI medications. Chest x-ray image reviewed shows left lower lobe and CP angle obliteration similar to previous x-ray 11/26/2021. Has AICD. 08/04: Improvement in mental status but patient seems chronically physically and mentally debilitated possible dementia and previous stroke. PT and OT ordered. 4. Chronic normocytic normochromic anemia, anemia of chronic disease: H&H 9.7/31.3. Mild leukocytosis. Platelet count 176,000. Neutrophils 78.3% 08/05: Hemoglobin dropped to 7.9/26.1. Platelet count 175,000. Patient on IV heparin drip. Protonix 40 mg IV twice daily ordered. Discontinue baby aspirin and cilostazol. Patient also has chronic constipation 08/06: Hemoglobin improved to 8.4. Platelet count 88,000. Continue IV heparin drip and Protonix. 08/07: No further bleed. 5. 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 Hold nephrotoxic medications losartan. 6. History of DVT: Xarelto was discontinued for patient with history of GI bleed. In March 2022, venous duplex was negative. Venous duplex is ordered. 08/04: Patient has acute DVT of right popliteal and tibioperoneal trunk. Superficial thrombosis/thrombophlebitis of right GSV with thrombus extending to CFV junction. Superficial thrombophlebitis of left proximal GSV extending to 1.8 cm from CFV. Patient has been chronically bedridden. Patient dropped hemoglobin to 8.1 from 9.7 on heparin subcu therefore not good for Lovenox or NOACs. Heparin drip started without bolus for ED reversibility. 7. Type 2 diabetes mellitus: Medications on hold.?? Accu-Chek before meals and at bedtime coverage Humalog sliding scale. 08/04 glucose in 90s. 08/06 glucose in 200s. 7.? Hyperlipidemia: Hold statin because of acute liver injury ? 8.? History of breast cancer: On Arimidex. Living will/advanced directive/end of life care: [facility] facesheet from the [facility] and states DNR CC. Patient is not awake to confirm that. While it seems patient has living will as per documentation from facesheet. We will maintain DNRCC. Allergies/Procedures Done in Hospital Allergies amoxicillin [From Augmentin] Allergy (Verified 08/03/22 13:19) PT UNSURE OF REACTION clavulanic acid [From Augmentin] Allergy (Verified 08/03/22 13:19) PT UNSURE OF REACTION Iodinated Contrast Media [DYEE] Allergy (Verified 08/03/22 13:19) Anaphylaxis levofloxacin [From Levaquin] Allergy (Verified 08/03/22 13:19) Upset Stomach loratadine [From Claritin] Allergy (Verified 08/03/22 13:19) PT UNSURE OF REACTION hydrocodone bitartrate [From Vicodin] Adverse Reaction (Verified 08/03/22 13:19) Nausea/Vom/Diarrhea iodine Adverse Reaction (Verified 08/03/22 13:19) Nausea/Vom/Diarrhea Type of Care/Length of Stay Estimated LOS: Convalescent Care Less Than 30 days Type of Care Needed: Skilled Rehab Potential: Good Prognosis: Good Additional Orders/Day of Discharge Day of Discharge: 08/08/22 Dietary and Speech Recommendations Dietitian Recommendations/Changes: Will adjust diet to Regular/no added salt given signs/symptoms of malnutrition. Texture/consistency as per BOILER/CHILLER TECHNICIAN, currently [id number] foods and thin liquids. Will offer 120 ml ensure plus high protein TID w/ medpass as tolerated. Discharge Plan Admission Admit Date/Time: 08/03/22 17:42 Primary Reason for Your Visit: Attending Provider: Armando Anthony Primary Care Provider: Jordan Shelton Consulting Providers: Jonathon Garcia Discharge Orders/Prescriptions Prescriptions: New sennosides-docusate sodium [Stool Softener-Stimulant Laxat] 8.6-50 mg Tablet 2 tab PO BID Qty: 0 0RF pantoprazole 40 mg Tablet,Delayed Release (Dr/Ec) 40 mg PO BID Qty: 0 0RF Rx Instructions: 40 mg bid for 2 months and then once daily ferrous sulfate [FeroSul] 325 mg (65 mg iron) Tablet 325 mg PO QODAY Qty: 0 0RF Eliquis 5 mg tablet 5 mg PO BID Qty: 60 2RF Continued atorvastatin 80 MG tablet 80 mg PO QHS polyethylene glycol 3350 17 GM powder in packet 17 gm PO BID metoprolol succinate 50 MG tablet extended release 24 hr 25 mg PO DAILY ondansetron HCl 4 MG tablet 4 mg PO Q6H PRN PRN (Reason: Nausea/Vomiting) isosorbide mononitrate 30 MG tablet extended release 24 hr 30 mg PO DAILY melatonin 3 MG tablet 6 mg PO QHS anastrozole 1 MG tablet 1 mg PO DAILY furosemide 40 MG tablet 40 mg PO DAILY Qty: 0 0RF tamsulosin 0.4 MG capsule 0.4 mg PO DAILY@1730 lactulose 20 GM/30 ML solution 20 gm PO DAILY fluoxetine 10 mg capsule 10 mg PO DAILY mineral oil-isopropyl myristat Lotion 1 applic TOPICAL BID insulin lispro [Humalog KwikPen Insulin] 100 unit/mL Insulin Pen See Protocol SUBCUT TID Protocol: 6. Sliding Scale Insulin Custom Condition: mg/dl range Dose/Route: Number of Units Condition: 151-200 Dose/Route: 4 Condition: 201-250 Dose/Route: 6 Condition: 251-300 Dose/Route: 8 Condition: 301-350 Dose/Route: 10 Condition: 351-400 Dose/Route: 12 Condition: 401-450 Dose/Route: 14 Condition: 451=/> Dose/Route: 16 Instruction: NOTIFY MD Protocol Text: Custom Sliding Scale sennosides-docusate sodium 1 TABLET tablet 1 tablet PO BID menthol-zinc oxide 1 APPLIC ointment 1 applic TOPICAL 0600,2200 Protocol: *Topical Application Instructions APPLICATION INSTRUCTIONS: bilateral buttocks Changed acetaminophen 500 MG tablet 1,000 mg PO Q8H PRN (Reason: Pain Score 1-10/10) Qty: 0 0RF insulin glargine [Lantus Solostar U-100 Insulin] 100 unit/mL (3 mL) insulin pen 15 unit SUBCUT BID Qty: 15 0RF Held aspirin 81 MG tablet 81 mg PO DAILY@0800 Hold Instructions: Hold while patient is taking Eliquis. losartan 25 MG tablet 25 mg PO DAILY Hold Instructions: Hold it for 1 week and then do BMP and follow-up with the art consultant cilostazol 50 mg tablet 50 mg PO BID Hold Instructions: Hold while the patient is taking Eliquis. Discontinued cetirizine 5 mg Tablet 5 mg PO DAILY polysaccharide iron complex [Ferrex 150] 150 mg iron Capsule 150 mg PO DAILY pantoprazole 20 mg Tablet,Delayed Release (Dr/Ec) 20 mg PO BID oxycodone 10 mg Tablet 10 mg PO Q6H PRN (Reason: Severe Pain (Scale Score 7-10)) Referrals / Follow Up: Karthik Holland MD [Med Staff - Consulting] - Within 2 Weeks Jordan Shelton MD [Primary Care Provider] - Disposition Disposition (needs filled in before D/C Order can be placed): Detention Facility
[2022-08-08] MEDS: Ferrous Sulfate 325 MG Tablet PO (11:21)
[2022-08-08 12:05] LABS: Bedside Glucose 193 mg/dL (74-106)
[2022-08-08 12:38] LABS: Partial Thromboplast Time 46.8 Seconds (24.1-36.2)
--- NOTE | 2022-08-08 13:36 | DS.PCM_ITS ---
Providers Date of Admission: 08/03/22 Date of Discharge: 08/08/22 Primary Care Physician: Dr. Jordan Shelton MD Consultations 08/03/22 18:48 Consult: Nephrology Routine Consulting Provider: Jonathon Garcia Reason for Consult: CARLOS ALBERTO EMERGENT Consult: No MD Notified: Yes Date Notified: 08/03/22 Time Notified: 17:50 Method of Notification: Verbal Reason For Visit: AMS, CARLOS ALBERTO, ACUTE LIVER INJURY Diagnosis Discharge Diagnosis (1) Acute kidney failure: Status: Acute Code(s): N17.9 - Acute kidney failure, unspecified (2) AMS (altered mental status): Status: Acute Code(s): R41.82 - Altered mental status, unspecified (3) CKD (chronic kidney disease): Status: Chronic Code(s): N18.9 - Chronic kidney disease, unspecified (4) Abnormal LFTs: Status: Acute Code(s): R79.89 - Other specified abnormal findings of blood chemistry Plan The patient is a 82-year-old female with multiple comorbidities sent from [facility] for altered mental status on top of dementia and a stroke and abnormal labs 1. CARLOS ALBERTO seems most likely prerenal but cannot rule out obstructive uropathy: [facility] Hernandez catheter ordered as abdomen is distended and for accurate intake and output measurement. Patient baseline creatinine about 1.5-1.7 noticed in MayJune 2022. Creatinine upon high 3.73 on 10/03, mild decrease 3.34 and 23.17. BUN elevated 79. CT abdomen and pelvis without contrast ordered as patient abdomen is distended and rule out obstructive uropathy. Nephrology consult. Patient had 1 L of normal saline bolus in ED and 1 more liter bolus ordered. Continue 100 mL/h after that. Hold nephrotoxic medications. 08/04: There is improvement in creatinine. Electrolytes in normal range. Discussed with the director business travel. Agree with continuation of normal saline. CT abdomen does not show evidence of hydronephrosis or kidney stone. 08/05: Patient BUN/creatinine 59/1.95, improving trend. Electrolytes in normal range. Patient looks more short of breath therefore x-ray was done and does not show acute changes compared to 08/03/2022. Continue IV fluid for nutritional support. CKs 683. 08/06: BUN/creatinine 55/2.04, seems HEU baseline. [facility] [employer] is following. Urine culture shows lactobacillus. Commensal organism. Does not have UTI. Does not need antibiotic 08/07: Labs ordered. Will discontinue Hernandez catheter. 08/08: Her creatinine profile has much improved. BUNs/creatinine 47/1.59. Patient put back on Lasix 40 mg daily. Discussed with the director business travel. We will hold losartan and advised follow-up BMP in 1 week and adjust the dose of diuretic and decide about losartan. 2. Acute liver injury, exact etiology unclear: Patient bilirubin found 2.3 on 08/02, increased doubled 4.1 on 08/03. No differential available. Patient also has increasing trend of transaminases and alkaline phosphatase. CT abdomen ordered. Liver ultrasound ordered for tomorrow AM. 08/04: Improvement in patient's total bilirubin. TV yesterday was 4.1, TB 2.9 therefore mainly direct. Today's 3.0. Improvement in transaminases and alkaline phosphatase. 08/05: ALI improving. Improvement in ALT AST and total bilirubin. Limited ultrasound shows cystic structure in GB fossa 2.2 x 1.6 x 1.4 cm, status postcholecystectomy. CBD 3.2 mm. 08/06: ALT AST and alkaline phosphatase improving trend. 08/08: Liver enzymes are improving. Acute liver injury improved 3. Altered mental status/acute encephalopathy possible metabolic on baseline dementia, previous stroke: Continue baby aspirin. PT OT speech therapy evaluation. Patient was last admitted in March 2022 for debility, generalized weakness and earlier in 2021 she had a stroke. Rapid SARS-CoV-2 and flu antigen negative. Hold sedative/SSRI medications. Chest x-ray image reviewed shows left lower lobe and CP angle obliteration similar to previous x-ray 11/26/2021. Has AICD. 08/04: Improvement in mental status but patient seems chronically physically and mentally debilitated possible dementia and previous stroke. PT and OT ordered. 06/08: Altered mental status most probably due to opioid medication. Oxycodone discontinued. 4. Chronic normocytic normochromic anemia, anemia of chronic disease: H&H 9.7/31.3. Mild leukocytosis. Platelet count 176,000. Neutrophils 78.3% 08/05: Hemoglobin dropped to 7.9/26.1. Platelet count 175,000. Patient on IV heparin drip. Protonix 40 mg IV twice daily ordered. Discontinue baby aspirin and cilostazol. Patient also has chronic constipation 08/06: Hemoglobin improved to 8.4. Platelet count 88,000. Continue IV heparin drip and Protonix. 08/07: No further bleed. 08/08: On Protonix 40 mg p.o. twice daily. 5. 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 Hold nephrotoxic medications losartan. 6. History of DVT: Xarelto was discontinued for patient with history of GI bleed. In March 2022, venous duplex was negative. Venous duplex is ordered. 08/04: Patient has acute DVT of right popliteal and tibioperoneal trunk. S uperficial thrombosis/thrombophlebitis of right GSV with thrombus extending to CFV junction. Superficial thrombophlebitis of left proximal GSV extending to 1.8 cm from CFV. Patient has been chronically bedridden. Patient dropped hemoglobin to 8.1 from 9.7 on heparin subcu therefore not good for Lovenox or NOACs. Heparin drip started without bolus for ED reversibility. 08/08: Discussed with the director business travel. With her creatinine clearance, discharged on Eliquis 5 mg p.o. twice daily. Hold aspirin and cilostazol while the patient is on Eliquis. 7. Type 2 diabetes mellitus: Medications on hold.?? Accu-Chek before meals and at bedtime coverage Humalog sliding scale. 08/04 glucose in 90s. 08/06 glucose in 200s. 08/08: Glucose controlled. 7.? Hyperlipidemia: Hold statin because of acute liver injury ? 8.? History of breast cancer: On Arimidex. Discharge medication reconciliation done. Discharge follow-up instructions completed. Discharge process discussed with the patient and all questions were answered to patient's satisfaction. Discharge to SNF. Total time spent, exact 35 minutes on discharge meds reconciliation, examination, coordination of care with nurses and ancillary staff, review of imaging and blood test and discussion with the patient on follow-up instructions. Living will/advanced directive/end of life care: Patient facesheet from the senior care and states DNR CC. Patient is not awake to confirm that. While it seems patient has living will as per documentation from facesheet. We will maintain DNRCC. Medications at Discharge Home Medications anastrozole 1 mg tablet 1 mg PO DAILY CANCER 03/02/20 aspirin 81 mg tablet,delayed release 81 mg PO DAILY@0800 HEART HEALTH 03/02/20 atorvastatin 80 mg tablet 80 mg PO QHS CHOLESTEROL 03/02/20 isosorbide mononitrate 30 mg tablet,extended release 24 hr 30 mg PO DAILY BP 03/02/20 losartan 25 mg tablet 25 mg PO DAILY HTN 03/02/20 melatonin 3 mg tablet 6 mg PO QHS SLEEP 03/02/20 metoprolol succinate 50 mg tablet,extended release 24 hr 25 mg PO DAILY HEART 03/02/20 ondansetron HCl 4 mg tablet 4 mg PO Q6H PRN PRN Nausea/Vomiting 03/02/20 polyethylene glycol 3350 17 gram oral powder packet 17 gm PO BID CONSTIPATION 03/02/20 furosemide 40 mg tablet 40 mg PO DAILY FLUID ##0 03/06/20 tamsulosin 0.4 mg capsule 0.4 mg PO DAILY@1730 Bladder 03/06/20 lactulose 20 gram/30 mL oral solution 20 gm PO DAILY Check with primary doctor 04/01/20 cilostazol 50 mg tablet 50 mg PO BID HEART 07/29/22 fluoxetine 10 mg capsule 10 mg PO DAILY DEPRESSION 07/29/22 insulin lispro 100 unit/mL subcutaneous pen (Humalog KwikPen (U-100) Insulin) S ee Protocol subcut TID DM 08/03/22 menthol 0.44 %-zinc oxide 20.6 % topical ointment 1 applic TOPICAL 0600,2200 SKIN 08/03/22 mineral oil-isopropyl myristat lotion 1 applic topical BID DRY SKIN 08/03/22 sennosides 8.6 mg-docusate sodium 50 mg tablet 1 tablet PO BID CONSTIPATION 08/03/22 acetaminophen 500 mg tablet 1,000 mg PO Q8H PRN Pain Score 1-10/10 #0 tabs 08/08/22 apixaban 5 mg tablet (Eliquis) 5 mg PO BID #60 tabs 08/08/22 ferrous sulfate 325 mg (65 mg iron) tablet (FeroSul) 325 mg PO QODAY #0 tabs 08/08/22 insulin glargine 100 unit/mL (3 mL) subcutaneous pen (Lantus Solostar U-100 Insulin) 15 unit (0.15 mL) subcut BID DM #15 mL 08/08/22 pantoprazole 40 mg tablet,delayed release 40 mg PO BID #0 tabs 08/08/22 sennosides 8.6 mg-docusate sodium 50 mg tablet (Stool Softener-Stimulant Laxative) 2 tab PO BID #0 tabs 08/08/22 Physical Exam Narrative General: Awake. Follows command. On baseline mental status. Obesity grade 3 BMI 33.8 kg/m? HEENT: Atraumatic, PERRLA, EOMI, Normocephalic.? Mild icterus Oral: Oral mucosa moist.? Deep oropharyngeal structures could not be visualized.? Neck: Supple, No JVD, Negative Carotid Bruits Lungs:? Air entry diminished in bilateral lung bases.? No crepitation/rhonchi Cardiovascular: Paced rhythm, irregular, PVC,? Normal S1, Normal S2, No murmurs Abdomen: Moved bowel. Bowel Sounds good.? Soft and nontender. No abdominal distention : Hernandez catheter clear urine.? Patient denies burning micturition.? No renal angle tenderness.? No suprapubic tenderness. Extremities: Bilateral chronic leg nonpitting? Edema, Capillary Refill Less than 3 Seconds Skin: No rashes, No breakdown Musculoskeletal: ROM severely restricted.? Passive movement is stiff.? Painful on flexion and extension. Neurological:? Muscle strength 4/5 seems mainly due to physical deconditioning and edema. Psych/Mental Status: Flat affect. Medical Records Data Medical Nutrition Assessment Dietitian: Malnutrition Criteria Met Start: 08/04/22 14:22 Freq: Status: Active Protocol: Document 08/04/22 14:22 RMA (Rec: 08/04/22 14:22 RMA [id number]) Nutrition Malnutrition Evidence of Malnutrition Exists Yes Malnutrition (severe): Chronic Evidenced By Suboptimal Energy Intake ( Severe),Weight Loss (Severe) Clinical Problem Chronic Disease or Condition Related Malnutrition Etiology Severe protein-calorie malnutrition in the context of chronic disease and debility related to inadequate oral intake and need for mechanically altered food Signs/Symptoms as evidenced by ~9% wt loss in less than 1 month and PO meeting less than 50% estimated nutrition needs Status Active Problem Recommendation Dietitian Recommendations/Changes Will adjust diet to Regular/no added salt given signs/ symptoms of malnutrition. Texture/consistency as per VIDEO SPECIALIST , currently [id number] foods and thin liquids. Will offer 120 ml ensure plus high protein TID w/ medpass as tolerated. Weight / BMI Weight Weight: 204 lb 9.423 oz Body Mass Index (BMI) 32.8 ABG / Lab / Microbiology Data Result Diagrams: 08/08/22 05:55 08/08/22 05:55 Laboratory: Laboratory Results - last 24 hr 08/07/22 16:10: POC Glucose 235 H 08/07/22 17:17: APTT 61.6 H 08/07/22 21:03: POC Glucose 232 H 08/07/22 23:05: APTT 56.0 H 08/08/22 05:55: WBC 8.5, RBC 2.78 L, Hgb 8.0 L, Hct 26.3 L, MCV 94.6, MCH 28.8, MCHC 30.4 L, RDW Std Deviation 51.8 H, RDW Coeff of Gunnar 15.2 H, Plt Count 267, MPV 10.5, Immature Gran % (Auto) 2.500 H, Neut % (Auto) 55.7, Lymph % (Auto) 22.2, [place] % (Auto) 13.7 H, Eos % (Auto) 5.0, Baso % (Auto) 0.9, Absolute Neuts (auto) 4.7, Absolute Lymphs (auto) 1.88, Nucleated RBC % 0 08/08/22 05:55: Sodium 142, Potassium 3.9, Chloride 110 H, Carbon Dioxide 28.0, Anion Gap 4 L, BUN 47 H, Creatinine 1.59 H, Estim Creat Clear Calc 25.39, Est GFR (MDRD) Af Amer 40 L, Est GFR (MDRD) Non-Af 33 L, BUN/Creatinine Ratio 29.6 H , Glucose 181 H, Calcium 8.7 08/08/22 05:55: APTT 49.5 H 08/08/22 06:23: POC Glucose 310 H 08/08/22 11:19: POC Glucose 193 H 08/08/22 12:17: APTT 46.8 H Microbiology: Microbiology 08/05/22 16:05 Stool Stool Occult Blood (GLENN) - Final Occult Blood Positive 08/03/22 20:20 Urine Catheter - Catheter Urine Culture - Final Presumptive Lactobacillus sp. 08/03/22 14:39 Nasal Secretion SARS-CoV-2 & FLU Antigen (Rapid) - Final Meaningful Use Info Meaningful Use Diagnoses (Choose all that apply): None applicable Discharge Plan Admission Admit Date/Time: 08/03/22 17:42 Primary Reason for Your Visit: Attending Provider: Armando Anthony Primary Care Provider: Jordan Shelton Consulting Providers: Jonathon Garcia Discharge Orders/Prescriptions Prescriptions: New sennosides-docusate sodium [Stool Softener-Stimulant Laxat] 8.6-50 mg Tablet 2 tab PO BID Qty: 0 0RF pantoprazole 40 mg Tablet,Delayed Release (Dr/Ec) 40 mg PO BID Qty: 0 0RF Rx Instructions: 40 mg bid for 2 months and then once daily ferrous sulfate [FeroSul] 325 mg (65 mg iron) Tablet 325 mg PO QODAY Qty: 0 0RF Eliquis 5 mg tablet 5 mg PO BID Qty: 60 2RF Continued atorvastatin 80 MG tablet 80 mg PO QHS polyethylene glycol 3350 17 GM powder in packet 17 gm PO BID metoprolol succinate 50 MG tablet extended release 24 hr 25 mg PO DAILY ondansetron HCl 4 MG tablet 4 mg PO Q6H PRN PRN (Reason: Nausea/Vomiting) isosorbide mononitrate 30 MG tablet extended release 24 hr 30 mg PO DAILY melatonin 3 MG tablet 6 mg PO QHS anastrozole 1 MG tablet 1 mg PO DAILY furosemide 40 MG tablet 40 mg PO DAILY Qty: 0 0RF tamsulosin 0.4 MG capsule 0.4 mg PO DAILY@1730 lactulose 20 GM/30 ML solution 20 gm PO DAILY fluoxetine 10 mg capsule 10 mg PO DAILY mineral oil-isopropyl myristat Lotion 1 applic TOPICAL BID insulin lispro [Humalog KwikPen Insulin] 100 unit/mL Insulin Pen See Protocol SUBCUT TID Protocol: 6. Sliding Scale Insulin Custom Condition: mg/dl range Dose/Route: Number of Units Condition: 151-200 Dose/Route: 4 Condition: 201-250 Dose/Route: 6 Condition: 251-300 Dose/Route: 8 Condition: 301-350 Dose/Route: 10 Condition: 351-400 Dose/Route: 12 Condition: 401-450 Dose/Route: 14 Condition: 451=/> Dose/Route: 16 Instruction: NOTIFY MD Protocol Text: Custom Sliding Scale sennosides-docusate sodium 1 TABLET tablet 1 tablet PO BID menthol-zinc oxide 1 APPLIC ointment 1 applic TOPICAL 0600,2200 Protocol: *Topical Application Instructions APPLICATION INSTRUCTIONS: bilateral buttocks Changed acetaminophen 500 MG tablet 1,000 mg PO Q8H PRN (Reason: Pain Score 1-10/10) Qty: 0 0RF insulin glargine [Lantus Solostar U-100 Insulin] 100 unit/mL (3 mL) insulin pen 15 unit SUBCUT BID Qty: 15 0RF Held aspirin 81 MG tablet 81 mg PO DAILY@0800 Hold Instructions: Hold while patient is taking Eliquis. losartan 25 MG tablet 25 mg PO DAILY Hold Instructions: Hold it for 1 week and then do BMP and follow-up with the director business travel cilostazol 50 mg tablet 50 mg PO BID Hold Instructions: Hold while the patient is taking Eliquis. Discontinued cetirizine 5 mg Tablet 5 mg PO DAILY polysaccharide iron complex [Ferrex 150] 150 mg iron Capsule 150 mg PO DAILY pantoprazole 20 mg Tablet,Delayed Release (Dr/Ec) 20 mg PO BID oxycodone 10 mg Tablet 10 mg PO Q6H PRN (Reason: Severe Pain (Scale Score 7-10)) Referrals / Follow Up: Karthik Holland MD [Med Staff - Consulting] - Within 2 Weeks Jordan Shelton MD [Primary Care Provider] - Disposition Disposition (needs filled in before D/C Order can be placed): [facility] Charges/Coding Visit Charges Inpatient E&M: 47913 Disch Hosp
--- NOTE | 2022-08-08 15:06 | NURSING ---
Report called to Rosy at [facility]. Pt is getting picked up at 15:30.
--- NOTE | 2022-08-08 15:39 | PHA.DC.MR ---
Pharmacy Service has performed discharge medication reconciliation for this patient. The patient's discharge medication list was reviewed for discrepancies and discrepancies were resolved. Home Medications anastrozole 1 mg tablet 1 mg PO DAILY CANCER 03/02/20 aspirin 81 mg tablet,delayed release 81 mg PO DAILY@0800 HEART HEALTH 03/02/20 atorvastatin 80 mg tablet 80 mg PO QHS CHOLESTEROL 03/02/20 isosorbide mononitrate 30 mg tablet,extended release 24 hr 30 mg PO DAILY BP 03/02/20 losartan 25 mg tablet 25 mg PO DAILY HTN 03/02/20 melatonin 3 mg tablet 6 mg PO QHS SLEEP 03/02/20 metoprolol succinate 50 mg tablet,extended release 24 hr 25 mg PO DAILY HEART 03/02/20 ondansetron HCl 4 mg tablet 4 mg PO Q6H PRN PRN Nausea/Vomiting 03/02/20 polyethylene glycol 3350 17 gram oral powder packet 17 gm PO BID CONSTIPATION 03/02/20 furosemide 40 mg tablet 40 mg PO DAILY FLUID ##0 03/06/20 tamsulosin 0.4 mg capsule 0.4 mg PO DAILY@1730 Bladder 03/06/20 lactulose 20 gram/30 mL oral solution 20 gm PO DAILY Check with primary doctor 04/01/20 cilostazol 50 mg tablet 50 mg PO BID HEART 07/29/22 fluoxetine 10 mg capsule 10 mg PO DAILY DEPRESSION 07/29/22 insulin lispro 100 unit/mL subcutaneous pen (Humalog KwikPen (U-100) Insulin) See Protocol subcut TID DM 08/03/22 menthol 0.44 %-zinc oxide 20.6 % topical ointment 1 applic TOPICAL 0600,2200 SKIN 08/03/22 mineral oil-isopropyl myristat lotion 1 applic topical BID DRY SKIN 08/03/22 sennosides 8.6 mg-docusate sodium 50 mg tablet 1 tablet PO BID CONSTIPATION 08/03/22 acetaminophen 500 mg tablet 1,000 mg PO Q8H PRN Pain Score 1-10/10 #0 tabs 08/08/22 apixaban 5 mg tablet (Eliquis) 5 mg PO BID #60 tabs 08/08/22 ferrous sulfate 325 mg (65 mg iron) tablet (FeroSul) 325 mg PO QODAY #0 tabs 08/08/22 insulin glargine 100 unit/mL (3 mL) subcutaneous pen (Lantus Solostar U-100 Insulin) 15 unit (0.15 mL) subcut BID DM #15 mL 08/08/22 pantoprazole 40 mg tablet,delayed release 40 mg PO BID #0 tabs 08/08/22 sennosides 8.6 mg-docusate sodium 50 mg tablet (Stool Softener-Stimulant Laxative) 2 tab PO BID #0 tabs 08/08/22
== END 2022-08-08 15:50 | disposition skilled nursing facility (03) | DRG 682 ==
LOC: ED 17:31 → MS3 17:54
PROVIDERS: Hospitalist; Internal Medicine; Nurse Practitioner Adult Health; Admitting Provider Internal Medicine; Emergency Provider Emergency Medicine; PCP Family Medicine; Visit Provider Internal Medicine
DX: N17.9 Acute kidney failure, unspecified (principal); G93.41 Metabolic encephalopathy; E43 Unspecified severe protein-calorie malnutrition; I82.431 Acute embolism and thrombosis of right popliteal vein; I13.0 Hypertensive heart and chronic kidney disease with heart failure and stage 1 through stage 4 chronic kidney disease, or unspecified chronic kidney disease; D63.8 Anemia in other chronic diseases classified elsewhere; E86.0 Dehydration; F03.90 Unspecified dementia, unspecified severity, without behavioral disturbance, psychotic disturbance, mood disturbance, and anxiety; E11.22 Type 2 diabetes mellitus with diabetic chronic kidney disease; I50.9 Heart failure, unspecified; N18.32 Chronic kidney disease, stage 3b; Z79.4 Long term (current) use of insulin; E78.5 Hyperlipidemia, unspecified; I25.10 Atherosclerotic heart disease of native coronary artery without angina pectoris; K76.9 Liver disease, unspecified; Z79.82 Long term (current) use of aspirin; Z66 Do not resuscitate; R09.02 Hypoxemia; Z79.811 Long term (current) use of aromatase inhibitors; Z79.02 Long term (current) use of antithrombotics/antiplatelets; Z20.822 Contact with and (suspected) exposure to COVID-19; Z79.899 Other long term (current) drug therapy; Z95.810 Presence of automatic (implantable) cardiac defibrillator; Z68.32 Body mass index [BMI] 32.0-32.9, adult
CPT/HCPCS: 36415; 70450; 71045; 74176; 76705; 80048; 80053; 81001; 82248; 82274; 82550; 82570; 82728; 82962; 83540; 83550; 83735; 84100; 84156; 84443; 85014; 85018; 85025; 85610; 85730; 87086; 87088; 87428; 92526; 92610; 93005; 93970; 97110; 97162; 97166; 97530; 97535; 97802; 99251; 99285; J7030; J7040; J7050; P9612; A4216; G0463; J2405; J2916

== ENCOUNTER → 2022-08-24 | Outpatient (REF) | payer MEDICARE, MEDICAID, SELFPAY ==
[2022-08-24 09:07] LABS: Anion Gap 6 (5-15); BUN 36 mg/dL (7-18); BUN/Creat Ratio 26.3 RATIO (10-20); Calcium,Total 8.9 mg/dL (8.5-10.1); Chloride 103 mmol/L (98-107); Creatinine, Serum 1.37 mg/dL (0.55-1.02); EST Glomerular Filtration Rate 39 mL/min (>60); Est Glom Filt Rate - Afr Amer 48 mL/min (>60); Glucose 152 mg/dL (74-106); Potassium 4.5 mmol/L (3.5-5.1); Sodium Level 141 mmol/L (136-145)
[2022-08-24 09:09] LABS: Absolute Lymphocyte Count 1.39 X10^3/uL (0.83-4.51); Absolute Neutrophil Count 2.7 X10^3/uL (2.0-7.7); Basophil# 0.06 X10^3/uL; Basophil% 1.2 % (0-1); Eosinophil# 0.18 X10^3/uL; Eosinophils% 3.6 % (0-5); Hematocrit 28.7 % (37-47); Hemoglobin 8.7 g/dL (12.0-15.0); Lymphocyte # 1.39 X10^3/ul (0.83-4.51); Lymphocyte % 27.6 % (19-41); Mean Corp Hgb Conc 30.3 g/dL (32-36); Mean Corpuscular Hgb 29.2 pg (27.0-32.0); Mean Corpuscular Volume 96.3 fL (81-99); Mean Platelet Vol. 10.8 fl (6.2-12.0); Monocyte# 0.67 X10^3/uL; Monocyte% 13.3 % (0-10); NRBC Flagged by Analyzer 0 % (0-5); Neutrophil # 2.69 X10^3/uL (2.7-7.7); Neutrophil % 53.5 % (47-70); Platelet Count 263 K/mm3 (150-450); RBC Distribution Width CV 16.2 % (11.6-14.6); RBC Distribution Width SD 56.3 fl (35.1-43.9); Red Blood Count 2.98 M/mm3 (4.2-5.4)
== END ==
LOC: OLS.SW 05:00
PROVIDERS: PCP Family Medicine; Visit Provider Family Medicine
DX: R68.89 Other general symptoms and signs (principal); Z79.899 Other long term (current) drug therapy; Z13.228 Encounter for screening for other metabolic disorders
CPT/HCPCS: 36415; 80048; 85025